=== PATIENT | male | born 1935 | race Caucasian/White ===

== ENCOUNTER 2018-08-28 13:12 | Inpatient (IN) ==
--- NOTE | 2018-08-28 14:29 | XR ---
EXAM DATE: 08/28/2018 2:24 PM EDT AGE/SEX: 83 years / Male INDICATIONS: . Mid back pain, cough and shortness of breath. CLINICAL DATA: This is the patient's initial encounter. Patient reports that signs and symptoms have been present for 1 month and indicates a pain score of 4/10. MEDICAL/SURGICAL HISTORY: Hypertension. Chronic obstructive pulmonary disease. Congestive hea rt failure. AFIB. Pacemaker. CABG. COMPARISON: [facility], CHEST 1V SINGLE AP, 07/24/2018. . FINDINGS: Cardiomegaly, sternotomy wires and mediastinal clips are noted. Pacer device again seen. Lungs are cl ear. Degenerative changes of the spine. CONCLUSION: Clear lungs. Electronically signed by: Feliciano Faith MD 08/28/2018 2:28 PM EDT
[2018-08-28 14:48] LABS: Baso # (Auto) 0.1 th/mm3 (0.0-0.2); Baso % (Auto) 0.8 % (0.0-2.0); Eos # (Auto) 0.1 th/mm3 (0.0-0.4); Eos % (Auto) 0.7 % (0.0-4.0); Hematocrit 46.3 % (39.0-51.0); Hemoglobin 15.2 gm/dL (13.0-17.0); Lymph # (Auto) 1.7 th/mm3 (1.0-4.8); Lymph % (Auto) 15.7 % (9.0-44.0); Mean Corpuscular HGB Conc 32.7 % (32.0-36.0); Mean Corpuscular Hemoglobin 30.2 pg (27.0-34.0); Mean Corpuscular Volume 92.4 fL (80.0-100.0); Mean Platelet Volume 9.1 fL (7.0-11.0); Mono # (Auto) 1.1 th/mm3 (0.0-0.9); Mono % (Auto) 9.7 % (0.0-8.0); Neut # (Auto) 8.1 th/mm3 (1.8-7.7); Neut % (Auto) 73.1 % (16.0-70.0); Platelet Count 353 th/mm3 (150-450); Red Blood Count 5.02 mil/mm3 (4.50-5.90); Red Cell Distribution Width 14.2 % (11.6-17.2); White Blood Count 11.1 th/mm3 (4.0-11.0)
[2018-08-28 14:52] LABS: INR 1.5 Ratio; Prothrombin Time 15.6 sec (9.8-11.6)
--- NOTE | 2018-08-28 15:12 | ED ---
HPI General Chief Complaint: Chest Pain Stated Complaint: SoB Time Seen by Provider: 08/28/18 14:32 Source: patient Mode of arrival: ambulatory History of Present Illness HPI narrative: Patient complaining of increased shortness of breath upon exertion over the past month. Patient had a defibrillator placed 1 month ago. Patient takes as Xarelto blood thinner and furosemide for heart failure. Patient states that he cannot exert himself at all without becoming extremely short of breath and gasping for air MD complaint: Reports other (SOB) STEMI Alert: No Onset (ago): week(s) (4) Duration: progressively worsening Onset: during exertion Severity: severe Quality: Reports tightness Relieving factors: nothing Associated symptoms: Reports dyspnea and palpitations; Denies nausea, vomiting, diaphoresis and syncope Treatments prior to arrival chest pain: Reports none Related Data Home Medications Medication Instructions Recorded Confirmed fenofibrate 160 mg PO DAILY 07/22/18 08/28/18 latanoprost 1 drp OPHTHALMIC (EYE) QPM 07/22/18 08/28/18 levothyroxine [Synthroid] 75 mcg PO DAILY 07/22/18 08/28/18 pitavastatin calcium [Livalo] 2 mg PO 3XW 07/22/18 08/28/18 metoprolol tartrate 25 mg PO BID 08/28/18 08/28/18 rivaroxaban [Xarelto] 15 mg PO QPM 08/28/18 08/28/18 torsemide 20 mg PO EVERY OTHER DAY 08/28/18 08/28/18 Allergies Allergy/AdvReac Type Severity Reaction Status Date / Time prednisone Allergy Severe Weight loss Verified 08/28/18 14:33 penicillin G Allergy Intermediate Hives Verified 08/28/18 14:33 Sulfa (Sulfonamide Allergy Intermediate Hives Verified 08/28/18 14:33 Antibiotics) Review of Systems ROS: all other systems reviewed are negative [facility] Medical History Medical History Afib (Acute) COPD (chronic obstructive pulmonary disease) (Acute) Diabetes (Acute) Glaucoma (Acute) HLD (hyperlipidemia) (Acute) HTN (hypertension) (Acute) Hypothyroid (Acute) ICD (implantable cardioverter-defibrillator) in place (Acute) Mitral regurgitation (Acute) Skin cancer (Acute) Ventricular tachycardia (Acute) Surgical History Surgical History H/O sinus surgery (Acute) Hx of CABG (Acute) Social History Social History Substance History: No History of Abuse Second Hand Smoke Exposure: No Smoking Status: Former smoker How Often Do You Have a Drink Containing Alcohol: Never Hx Recent Travel: No Recent Travel in [facility] within the Last 8 Weeks: No Recent Out of Country Travel within the Last 8 Weeks: No Immunization History Tetanus Immunization: Unsure Exam Const General: cooperative, healthy appearing, comfortable and not anxious HENMT Head: normocephalic and atraumatic Nose: no nasal discharge and no epistaxis Mouth: moist mucous membranes Eyes Sclera: normal sclerae Pupils: PERRL Neck Neck: trachea midline and no JVD Resp Effort & Inspection: able to speak in complete sentences, no audible wheezes, no cough, respiratory effort not decreased, tachypneic and no use of accessory muscles Auscultation: clear to auscultation bilaterally and no wheezes Cardio Jugular venous pressure: no JVD Rate: tachycardic (Atrial ribrilation with RVR rate at 120) Rhythm: abnormal rhythm Heart Sounds: no murmurs GI Inspection: non-distended Palpation: soft, no hepatosplenomegaly and nontender Skin General: dry skin (warm) Neuro General: alert and awake Cranial Nerves: other Speech: speech normal Motor: no movement abnormalities noted Extrem General: normal to inspection, no clubbing, no cyanosis and no edema Psych Appearance: grossly normal Mood: congruent mood Affect: normal affect Attitude: cooperative Judgment: judgment good Course Initial Documented Vital Signs Temperature 98.5 F 08/28/18 13:15 Pulse Rate 74 08/28/18 13:15 Respiratory Rate 16 08/28/18 13:15 Blood Pressure 129/77 08/28/18 13:15 Pulse Oximetry 95 08/28/18 13:15 Last Documented Vital Signs Temperature 98.5 F 08/28/18 13:15 Pulse Rate 112 H 08/28/18 13:31 Respiratory Rate 26 H 08/28/18 13:31 Blood Pressure 129/77 08/28/18 13:15 Pulse Oximetry 96 08/28/18 13:31 Medical Decision Making TEODORO Attestation TEODORO supervised visit: Yes Attestation: I, Dr. Everett, have reviewed the advance practice practitioner's documentation and am in agreement, met with the patient face to face, made the diagnosis, and the medical decision making was done by me. *My assessment and Findings: A. fib with RVR. Acute on chronic kidney injury. Admit with Cardizem drip. Gentle IV hydration. MDM Narrative Medical decision making narrative: Patient is short of breath for the last month but worsening symptoms for the past 2 days. Had a defibrillator placed [address] Contreras. Will order labs chest x-ray and EKG starting fluids along with starting Cardizem drip for AFIB rvr with rate of 120 Labs show acute on chronic renal failure with creatinine of 2.4 BUN of 47 and a GFR that is 25 CXR is normal After starting the drip patient's rate has gone down to 90s Patient is comfortable in bed and is okay with the plan to admit patient for evaluation of renal failure and A. fib RVR Medical Screen Exam Complete: Yes Emergency Medical Condition: Yes Lab Data Lab results reviewed: Yes I reviewed the patient's lab results. Result diagrams: 08/28/18 14:00 08/28/18 14:00 Lab Results 08/28/18 08/28/18 08/28/18 Range/Units 14:00 14:00 14:00 WBC 11.1 H (4.0-11.0) th/mm3 RBC 5.02 (4.50-5.90) mil/mm3 Hgb 15.2 (13.0-17.0) gm/dL Hct 46.3 (39.0-51.0) % MCV 92.4 (80.0-100.0) fL MCH 30.2 (27.0-34.0) pg MCHC 32.7 (32.0-36.0) % RDW 14.2 (11.6-17.2) % Plt Count 353 (150-450) th/mm3 MPV 9.1 (7.0-11.0) fL Neut % (Auto) 73.1 H (16.0-70.0) % Lymph % (Auto) 15.7 (9.0-44.0) % [place] % (Auto) 9.7 H (0.0-8.0) % Eos % (Auto) 0.7 (0.0-4.0) % Baso % (Auto) 0.8 (0.0-2.0) % Neut # (Auto) 8.1 H (1.8-7.7) th/mm3 Lymph # (Auto) 1.7 (1.0-4.8) th/mm3 [place] # (Auto) 1.1 H (0.0-0.9) th/mm3 Eos # (Auto) 0.1 (0.0-0.4) th/mm3 Baso # (Auto) 0.1 (0.0-0.2) th/mm3 WBC Differential . Differential Comment Auto diff final PT 15.6 H (9.8-11.6) sec INR 1.5 Ratio Sodium 137 (136-145) meq/L Potassium 4.4 (3.5-5.1) meq/L Chloride 100 (98-107) meq/L Carbon Dioxide 21.5 (21.0-32.0) meq/L Anion Gap 16 H (5-15) meq/L BUN 47 H (7-18) mg/dL Creatinine 2.45 H (0.60-1.30) mg/dL Estimated GFR 25 L (>89) mL/min Random Glucose 156 H (74-106) mg/dL Calcium 9.9 (8.5-10.1) mg/dL Total Creatine Kinase 75 (39-308) U/L Troponin I Less than 0.02 L (0.02-0.05) ng/mL B-Natriuretic Peptide (0-100) pg/mL 08/28/18 Range/Units 15:15 WBC (4.0-11.0) th/mm3 RBC (4.50-5.90) mil/mm3 Hgb (13.0-17.0) gm/dL Hct (39.0-51.0) % MCV (80.0-100.0) fL MCH (27.0-34.0) pg MCHC (32.0-36.0) % RDW (11.6-17.2) % Plt Count (150-450) th/mm3 MPV (7.0-11.0) fL Neut % (Auto) (16.0-70.0) % Lymph % (Auto) (9.0-44.0) % [place] % (Auto) (0.0-8.0) % Eos % (Auto) (0.0-4.0) % Baso % (Auto) (0.0-2.0) % Neut # (Auto) (1.8-7.7) th/mm3 Lymph # (Auto) (1.0-4.8) th/mm3 [place] # (Auto) (0.0-0.9) th/mm3 Eos # (Auto) (0.0-0.4) th/mm3 Baso # (Auto) (0.0-0.2) th/mm3 WBC Differential Differential Comment PT (9.8-11.6) sec INR Ratio Sodium (136-145) meq/L Potassium (3.5-5.1) meq/L Chloride (98-107) meq/L Carbon Dioxide (21.0-32.0) meq/L Anion Gap (5-15) meq/L BUN (7-18) mg/dL Creatinine (0.60-1.30) mg/dL Estimated GFR (>89) mL/min Random Glucose (74-106) mg/dL Calcium (8.5-10.1) mg/dL Total Creatine Kinase (39-308) U/L Troponin I (0.02-0.05) ng/mL B-Natriuretic Peptide 2912 H (0-100) pg/mL Imaging Data Attestation: I personally reviewed and interpreted this imaging study as follows : Radiologist's impression: Chest X-Ray 08/28/18 13:35 CONCLUSION: Clear lungs. ECG Data EKG Prior to Arrival: No Attestation: I personally reviewed and interpreted this ECG as follows: Discharge Plan Discharge Disposition Patient Disposition: 30 Still Patient Discharge Condition Condition: Stable Discharge Details Diagnosis: Atrial fibrillation with rapid ventricular response, Renal failure, acute on chronic, Shortness of breath on exertion Physicians Team ED Provider: Chato Everett ED Midlevel Provider: Chel Koch Primary Care Provider: Davy Walters Attending Provider: Carlota Lemon Status ED Status: Admitted Patient
[2018-08-28 15:34] LABS: Creatine Kinase 75 U/L (39-308)
[2018-08-28 15:37] LABS: Anion Gap 16 meq/L (5-15); Blood Urea Nitrogen 47 mg/dL (7-18); Calcium 9.9 mg/dL (8.5-10.1); Carbon Dioxide 21.5 meq/L (21.0-32.0); Chloride 100 meq/L (98-107); Glomerular Filtration Rate 25 mL/min (>89); Glucose,Random 156 mg/dL (74-106); Potassium 4.4 meq/L (3.5-5.1); Sodium 137 meq/L (136-145)
[2018-08-28] MEDS: dilTIAZem Inj 125 MG in Sodium Chlor 0.9% Inj 100 ML IV.CONT PRN (15:44)
[2018-08-28] MEDS ORDERED: Sodium Chlor 0.9% Inj 500 ML IV.SIG SCH (17:00)
--- NOTE | 2018-08-28 18:16 | P.HPFP ---
History of Present Illness Primary Care Physician: Davy Walters MD History of Present Illness: 83-year-old male with a history of A. fib on Xarelto, hypertension, hyperlipidemia, ICD presents to the ED with worsening shortness of breath. Patient is here with his . PCP is Dr. Walters. Patient reports that he has had worsening intermittent shortness of breath for a few weeks. reports that patient was hunched over on the couch trying to breathe. Shortness of breath is worse on exertion. Patient states that when he was going to the bathroom he could not catch his breath. He states that he was getting go see Dr. Walters next week. He denies orthopnea, leg swelling, and chest pain. He states that his shortness of breath was relieved with oxygen. Patient had a defibrillator replaced about a month ago by Dr. Contreras. Patient reports decreased appetite since defibrillator was replaced. reports that he has lost 20 pounds in the past month. Endorses generalized weakness and fatigue. Denies fevers, night sweats, nausea vomiting, diarrhea, abdominal pain , dysuria, melena. 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 This includes certification that hospital inpatient services are reasonable and necessary and in the case of services not specified as inpatient-only under 42 CFR 419.22(n), that they are appropriately provided as inpatient services in accordance to with the 2-midnight benchmark under 43 CFR 412.3(e) Estimated Total Length of Stay (Days): 2 Plans for Post Hospital Care: Other Review of Systems Constitutional: Reports weakness, Reports weight loss, Denies fever(s), Denies headache(s) Eyes: Denies change in vision Ears, Nose, Mouth, and Throat: Denies difficulty swallowing Cardiovascular: Reports shortness of breath, Denies chest pain Respiratory: Reports shortness of breath with activity, Denies cough Gastrointestinal: Denies abdominal pain Genitourinary: Denies difficulty urinating Musculoskeletal: Reports muscle weakness, Denies body aches, Denies muscle cramps Skin/Breast: Denies rash Neurologic: Denies tingling/numbness/burning sensations PMFSH - History History Provided By: Patient - Medical History Medical History: Medical History (Last Reviewed 08/28/18 @ 15:10 by Chel Koch) Afib COPD (chronic obstructive pulmonary disease) Diabetes Glaucoma HLD (hyperlipidemia) HTN (hypertension) Hypothyroid ICD (implantable cardioverter-defibrillator) in place Mitral regurgitation Skin cancer Ventricular tachycardia - Surgical History Surgical History: Surgical History (Last Reviewed 08/28/18 @ 15:10 by Chel Koch) H/O sinus surgery Hx of CABG - Family History Family History: Family History (Last Updated 08/28/18 @ 22:09 by Ashanti Bloom MD, R2) Father Colon cancer - Social History I have reviewed the patient's Social History: Yes - Tobacco History Second Hand Smoke Exposure: No Smoking Status: Former smoker - Alcohol History How Often Do You Have a Drink Containing Alcohol: Never - Substance Use History Substance History: No History of Abuse - Travel History History of Recent Travel: No Recent Travel in the [place] Within the Last 8 Weeks: No Recent Travel Out of the Country Within the Last 8 Weeks: No - Immunization History Tetanus Immunization: Unsure Medications and Allergies Active Medications: Active Medications Diltiazem HCl 125 mg/ Sodium (Chloride) 125 mls @ 5 mls/hr IV.CONT TITRATE PRN ; Protocol PRN Reason: Per Protocol Last Titration: 08/28/18 16:12 Dose: 10 mg/hr, 10 mls/hr Sodium Chloride (Ns Inj) 500 mls @ 0 mls/hr IV.SIG BOLUS ANNITA Sodium Chloride (Ns Inj) 1,000 mls @ 84 mls/hr IV.CONT .[id number] [facility] Allergies Allergy/AdvReac Type Severity Reaction Status Date / Time prednisone Allergy Severe Weight loss Verified 08/28/18 14:33 penicillin G Allergy Intermediate Hives Verified 08/28/18 14:33 Sulfa (Sulfonamide Allergy Intermediate Hives Verified 08/28/18 14:33 Antibiotics) Home Medications Medication Instructions Recorded Confirmed Type fenofibrate 160 mg PO DAILY 07/22/18 08/28/18 History latanoprost 1 drp OPHTHALMIC (EYE) QPM 07/22/18 08/28/18 History levothyroxine [Synthroid] 75 mcg PO DAILY 07/22/18 08/28/18 History pitavastatin calcium [Livalo] 2 mg PO 3XW 07/22/18 08/28/18 History metoprolol tartrate 25 mg PO BID 08/28/18 08/28/18 History rivaroxaban [Xarelto] 15 mg PO QPM 08/28/18 08/28/18 History torsemide 20 mg PO EVERY OTHER DAY 08/28/18 08/28/18 History Exam Vital signs: Vital Signs 08/28/18 13:15 08/28/18 13:31 Temperature 98.5 F Pulse Rate 74 112 H Respiratory Rate 16 26 H Blood Pressure 129/77 Pulse Oximetry 95 96 Intake & Output 08/27/18 08/28/18 08/28/18 18:59 06:59 18:59 Weight 63.503 kg Narrative: General: Elderly male in no acute distress Cardio: Irregular rate and rhythm Pulmonary: Clear to auscultation bilaterally, no wheezes or crackles Abdomen soft, nontender nondistended, positive bowel sounds, no guarding, no rebound Extremities: No cyanosis or edema Neuro: Alert and oriented x3 Results - Labs Result diagrams: 08/28/18 14:00 08/28/18 14:00 Abnormal lab results 08/28/18 08/28/18 08/28/18 Range/Units 14:00 14:00 14:00 WBC 11.1 H (4.0-11.0) th/mm3 Neut % (Auto) 73.1 H (16.0-70.0) % [place] % (Auto) 9.7 H (0.0-8.0) % Neut # (Auto) 8.1 H (1.8-7.7) th/mm3 [place] # (Auto) 1.1 H (0.0-0.9) th/mm3 PT 15.6 H (9.8-11.6) sec Anion Gap 16 H (5-15) meq/L BUN 47 H (7-18) mg/dL Creatinine 2.45 H (0.60-1.30) mg/dL Estimated GFR 25 L (>89) mL/min Random Glucose 156 H (74-106) mg/dL Troponin I Less than 0.02 L (0.02-0.05) ng/mL B-Natriuretic Peptide (0-100) pg/mL 08/28/18 Range/Units 15:15 WBC (4.0-11.0) th/mm3 Neut % (Auto) (16.0-70.0) % [place] % (Auto) (0.0-8.0) % Neut # (Auto) (1.8-7.7) th/mm3 [place] # (Auto) (0.0-0.9) th/mm3 PT (9.8-11.6) sec Anion Gap (5-15) meq/L BUN (7-18) mg/dL Creatinine (0.60-1.30) mg/dL Estimated GFR (>89) mL/min Random Glucose (74-106) mg/dL Troponin I (0.02-0.05) ng/mL B-Natriuretic Peptide 2912 H (0-100) pg/mL Short CBC 08/28/18 Range/Units 14:00 WBC 11.1 H (4.0-11.0) th/mm3 Hgb 15.2 (13.0-17.0) gm/dL Hct 46.3 (39.0-51.0) % Plt Count 353 (150-450) th/mm3 BMP 08/28/18 14:00 Sodium 137 Potassium 4.4 Chloride 100 Carbon Dioxide 21.5 BUN 47 H Creatinine 2.45 H Calcium 9.9 Cardiac Enzymes 08/28/18 Range/Units 14:00 Total Creatine Kinase 75 (39-308) U/L Troponin I Less than 0.02 L (0.02-0.05) ng/mL - Imaging Impressions Chest X-Ray 08/28/18 13:35 CONCLUSION: Clear lungs. Caprini VTE Risk Assessment Caprini VTE Risk Assessment: Moderate/High Risk (score >= 2) Caprini Risk Assessment Model: Point Value = 1 Point Value = 2 Point Value = 3 Point Value = 5 Age 41-60 Minor surgery BMI > 25 kg/m2 Swollen legs Varicose veins or History of unexplained or recurrent spontaneous Oral contraceptives or hormone replacement Sepsis (< 1 month) Serious lung disease, including pneumonia (< 1 month) Abnormal pulmonary function Acute myocardial infarction Congestive heart failure (< 1 month) History of inflammatory bowel disease Medical patient at bed rest Age 61-74 Arthroscopic surgery Major open surgery (> 45 min) Laparoscopic surgery (> 45 min) Malignancy Confined to bed (> 72 hours) Immobilizing plaster cast Central venous access Age >= 75 History of VTE Family history of VTE Factor V Leiden Prothrombin [id number] Lupus anticoagulant Anticardiolipin antibodies Elevated serum homocysteine Heparin-induced thrombocytopenia Other congenital or acquired thrombophilia Stroke (< 1 month) Elective arthroplasty Hip, pelvis, or leg fracture Acute spinal cord injury (< 1 month) Prophylaxis Regimen: Total Risk Factor Score Risk Level Prophylaxis Regimen 0-1 Low Early ambulation 2 Moderate Order ONE of the following: *Sequential Compression Device (SCD) *Heparin 5000 units SQ BID 3-4 Higher Order ONE of the following medications: *Heparin 5000 units SQ TID *Enoxaparin/Lovenox 40 mg SQ daily (WT < 150 kg, CrCl > 30 mL/min) *Enoxaparin/Lovenox 30 mg SQ daily (WT < 150 kg, CrCl > 10-29 mL/min) *Enoxaparin/Lovenox 30 mg SQ BID (WT < 150 kg, CrCl > 30 mL/min) AND/OR *Sequential Compression Device (SCD) 5 or more Highest Order ONE of the following medications: *Heparin 5000 units SQ TID (Preferred with Epidurals) *Enoxaparin/Lovenox 40 mg SQ daily (WT < 150 kg, CrCl > 30 mL/min) *Enoxaparin/Lovenox 30 mg SQ daily (WT < 150 kg, CrCl > 10-29 mL/min) *Enoxaparin/Lovenox 30 mg SQ BID (WT < 150 kg, CrCl > 30 mL/min) AND *Sequential Compression Device (SCD) Assessment and Plan - Assessment (1) Atrial fibrillation with rapid ventricular response Code(s): I48.91 - Unspecified atrial fibrillation Status: Acute Plan: 83-year-old male with a history of A. fib on Xarelto, hypertension, hyperlipidemia, ICD presents to the ED with worsening shortness of breath. Per [facility]-cardiology consult note on 08/14, patient to start amiodarone 200 mg daily. Patient to have EMILEE/cardioversion in a few weeks Continue Cardizem drip, titrate as needed Continue Xarelto 50 mg p.o. Cardiac telemetry Cardiology consulted, appreciate recommendations (2) Cardiomyopathy Code(s): I42.9 - Cardiomyopathy, unspecified Status: Chronic Plan: -Echo 10/2017, EF=17%, LAE, LVH, PILY, Mod MR, Mod AI, Mod TR, aortic cusp thickening BNP elevated at 2912, patient does not appear to be fluid overloaded on exam, no lower extremity swelling or crackles CXR negative Continue to monitor BNP (3) V-tach Code(s): I47.2 - Ventricular tachycardia Status: Chronic Plan: s/p ICD changed on 07/21/18 (4) Renal failure, acute on chronic Code(s): N17.9 - Acute kidney failure, unspecified; N18.9 - Chronic kidney disease, unspecified Status: Acute Plan: Patient with BUN of 47 and creatinine of 2.45 on admission Baseline around 1.1 Normal saline 84mls/hr, lower than maintenance to hx of CHF (5) Hyperlipidemia Code(s): E78.5 - Hyperlipidemia, unspecified Status: Acute Plan: Continue fenofibrate 140 mg p.o. daily (6) Hypothyroidism Code(s): E03.9 - Hypothyroidism, unspecified Status: Chronic Plan: Continue levothyroxine 75mcg daily (7) Nutrition, metabolism, and development symptoms Code(s): R63.8 - Other symptoms and signs concerning food and fluid intake Status: Acute Plan: Fluids: NS 84mls/hr Diet: Cardiac diet vitals q4h, monitor I & Os DVT ppx: Xarelto (4) Renal failure, acute on chronic Qualifiers: Acute renal failure type: unspecified Chronic kidney disease stage: unspecified stage Qualified Code(s): N17.9 - Acute kidney failure, unspecified ; N18.9 - Chronic kidney disease, unspecified
[2018-08-28] MEDS: Sod Chloride 0.9% Inj 1,000 ML IV.CONT SCH (18:29)
[2018-08-28] MEDS ORDERED: Sod Chloride 0.9% Inj 1,000 ML IV.CONT SCH (22:30)
[2018-08-29] MEDS: dilTIAZem Inj 125 MG in Sodium Chlor 0.9% Inj 100 ML IV.CONT PRN (02:01)
[2018-08-29] MEDS: Sod Chloride 0.9% Inj 1,000 ML IV.CONT SCH ×2 (05:23→20:13)
[2018-08-29] MEDS: Levothyroxine 75 MCG Tablet PO SCH (05:24)
[2018-08-29 07:29] LABS: Baso # (Auto) 0.1 th/mm3 (0.0-0.2); Baso % (Auto) 1.1 % (0.0-2.0); Eos # (Auto) 0.2 th/mm3 (0.0-0.4); Eos % (Auto) 1.9 % (0.0-4.0); Hematocrit 41.6 % (39.0-51.0); Hemoglobin 14.1 gm/dL (13.0-17.0); Lymph # (Auto) 1.5 th/mm3 (1.0-4.8); Lymph % (Auto) 16.5 % (9.0-44.0); Mean Corpuscular HGB Conc 33.8 % (32.0-36.0); Mean Corpuscular Hemoglobin 30.8 pg (27.0-34.0); Mean Corpuscular Volume 91.2 fL (80.0-100.0); Mean Platelet Volume 8.8 fL (7.0-11.0); Mono # (Auto) 0.6 th/mm3 (0.0-0.9); Mono % (Auto) 6.9 % (0.0-8.0); Neut # (Auto) 6.6 th/mm3 (1.8-7.7); Neut % (Auto) 73.6 % (16.0-70.0); Platelet Count 294 th/mm3 (150-450); Red Blood Count 4.57 mil/mm3 (4.50-5.90)
[2018-08-29 08:03] LABS: Alanine Aminotransferase 460 U/L (12-78); Albumin 3.1 g/dL (3.4-5.0); Alkaline Phosphatase 53 U/L (45-117); Anion Gap 12 meq/L (5-15); Aspartate Aminotransferase 658 U/L (15-37); Blood Urea Nitrogen 42 mg/dL (7-18); Calcium 8.7 mg/dL (8.5-10.1); Carbon Dioxide 23.9 meq/L (21.0-32.0); Chloride 104 meq/L (98-107); Glomerular Filtration Rate 42 mL/min (>89); Glucose,Random 78 mg/dL (74-106); Potassium 4.1 meq/L (3.5-5.1); Sodium 140 meq/L (136-145); Total Protein 7.3 g/dL (6.4-8.2)
[2018-08-29] MEDS ORDERED: Fenofibrate 145 MG Tablet PO SCH (09:00)
[2018-08-29] MEDS: Metoprolol Tartrate 25 MG Tablet PO SCH ×2 (10:21→20:11)
--- NOTE | 2018-08-29 11:21 | P.CONCA ---
History of Present Illness Service: Cardiology covering for Dr Contreras Consult date: 08/29/18 Primary Care Provider: Davy Walters MD Chief Complaint: atrial fib with RVR History of Present Illness: This is a pleasant 83 year old male who developed increased shortness of breath over past month who presented to ER 08/28 due to worsening shortening of breath. He states that he was hospitalized last month with ICD generator change and atrial fibrillation. Denied chest pain, palpitations, dizziness, edema. He was started on Cardizem drip which is currently going at 10 and heart rate is 84. Review of Systems Constitutional: Reports fatigue Ears, Nose, Mouth, and Throat: Reports abnormal hearing Cardiovascular: Reports rapid, pounding, or irregular heartbeat, Reports shortness of breath, Denies chest pain, Denies fainting, Denies foot swelling, Denies lightheadedness Respiratory: Reports shortness of breath with activity Gastrointestinal: Denies nausea Skin/Breast: Reports change in skin color, Reports dry skin PMFSH - History History Provided By: Patient - Medical History Medical History: Medical History (Last Reviewed 08/28/18 @ 15:10 by Chel Koch) Afib COPD (chronic obstructive pulmonary disease) Diabetes Glaucoma HLD (hyperlipidemia) HTN (hypertension) Hypothyroid ICD (implantable cardioverter-defibrillator) in place Mitral regurgitation Skin cancer Ventricular tachycardia - Surgical History Surgical History: Surgical History (Last Reviewed 08/28/18 @ 15:10 by Chel Koch) H/O sinus surgery Hx of CABG - Family History Family History: Family History (Last Updated 08/28/18 @ 22:09 by Ashanti Bloom MD, R2) Father Colon cancer - Tobacco History Second Hand Smoke Exposure: No Smoking Status: Former smoker - Alcohol History How Often Do You Have a Drink Containing Alcohol: Never - Substance Use History Substance History: No History of Abuse - Travel History History of Recent Travel: No Recent Travel in the [place] Within the Last 8 Weeks: No Recent Travel Out of the Country Within the Last 8 Weeks: No - Immunization History Tetanus Immunization: Unsure Hx Influenza Vaccine This Season: No Medications and Allergies Allergies Allergy/AdvReac Type Severity Reaction Status Date / Time prednisone Allergy Severe Weight loss Verified 08/28/18 14:33 penicillin G Allergy Intermediate Hives Verified 08/28/18 14:33 Sulfa (Sulfonamide Allergy Intermediate Hives Verified 08/28/18 14:33 Antibiotics) Home Medications Medication Instructions Recorded Confirmed Type fenofibrate 160 mg PO DAILY 07/22/18 08/28/18 History latanoprost 1 drp OPHTHALMIC (EYE) QPM 07/22/18 08/28/18 History levothyroxine [Synthroid] 75 mcg PO DAILY 07/22/18 08/28/18 History pitavastatin calcium [Livalo] 2 mg PO 3XW 07/22/18 08/28/18 History metoprolol tartrate 25 mg PO BID 08/28/18 08/28/18 History rivaroxaban [Xarelto] 15 mg PO QPM 08/28/18 08/28/18 History torsemide 20 mg PO EVERY OTHER DAY 08/28/18 08/28/18 History Active Medications: Active Medications Diltiazem HCl 125 mg/ Sodium (Chloride) 125 mls @ 5 mls/hr IV.CONT TITRATE PRN ; Protocol PRN Reason: Per Protocol Last Admin: 08/29/18 02:01 Dose: 10 mg/hr, 10 mls/hr Sodium Chloride (Ns Inj) 500 mls @ 0 mls/hr IV.SIG BOLUS [facility] Last Infusion: 08/28/18 19:27 Dose: Infused Sodium Chloride (Ns Inj) 1,000 mls @ 84 mls/hr IV.CONT .[id number] [facility] Last Admin: 08/29/18 05:23 Dose: 84 mls/hr Latanoprost (Xalatan 0.005% Opth Drops) 1 drop EACH EYE QPM [facility] Levothyroxine Sodium (Synthroid) 75 mcg PO DAILY@0600 [facility] Last Admin: 08/29/18 05:24 Dose: 75 mcg Metoprolol Tartrate (Lopressor) 25 mg PO BID [facility] Last Admin: 08/29/18 10:21 Dose: 25 mg Rivaroxaban (Xarelto) 15 mg PO QPM [facility] Sodium Chloride (Ns Flush) 2 ml IV.FLUSH BID [facility] Last Admin: 08/29/18 10:21 Dose: 2 ml Sodium Chloride (Ns Flush) 2 ml IV.FLUSH PRN PRN PRN Reason: FLUSH AFTER USING IV ACCESS Torsemide (Demadex) 20 mg PO EVERY OTHER DAY [facility] Exam Vital signs: Vital Signs 08/28/18 13:15 08/28/18 13:31 08/28/18 17:30 Temperature 98.5 F Pulse Rate 74 112 H 101 H Respiratory Rate 16 26 H 18 Blood Pressure 129/77 94/67 L Pulse Oximetry 95 96 08/28/18 17:31 08/28/18 18:43 08/28/18 20:00 Temperature 98.4 F Pulse Rate 84 94 H Respiratory Rate 18 20 Blood Pressure 93/64 L 113/68 Pulse Oximetry 96 96 97 08/28/18 22:00 08/28/18 23:00 08/29/18 00:00 Temperature 97.4 F L Pulse Rate 86 86 85 Respiratory Rate 18 Blood Pressure 109/68 Pulse Oximetry 100 08/29/18 01:00 08/29/18 02:00 08/29/18 03:00 Temperature Pulse Rate 82 80 94 H Respiratory Rate Blood Pressure Pulse Oximetry 08/29/18 04:00 08/29/18 05:00 08/29/18 06:00 Temperature 97.6 F Pulse Rate 74 70 92 H Respiratory Rate 18 Blood Pressure 112/69 Pulse Oximetry 95 Intake & Output 08/28/18 08/29/18 08/29/18 18:59 06:59 18:59 Intake Total 1925 / 1925 Output Total 200 / 200 Balance 1725 / 1725 Weight 63.503 kg 67 kg Intake: IV 1625 / 1625 NS Inj 1,000 ML @ 84 mls/hr IV. 1000 / 1000 CONT .[id number] [facility] Rx#:[id number] Cardizem Inj 125 MG In NS Inj 125 / 125 100 ML @ 5 MG/HR 5 mls/hr IV. CONT TITRATE PRN Rx#:[id number] NS Inj 500 ML @ Wide Open IV. 500 / 500 SIG BOLUS [facility] Rx#:[id number] Oral 300 / 300 Output: Urine 200 / 200 Other: # Voids 1 Date of Last Bowel Movement 08/27/18 # Bowel Movements 0 Weight On Admission 66.5 kg - Constitutional no acute distress - Routine HEENT Exam Head: Present: normocephalic, atraumatic Eye: Present: EOMI ENT: Present: mucous membranes moist - Routine Neck Exam Present: supple. Absent: JVD - Routine Respiratory Exam Present: CTA bilaterally - Routine Cardiovascular Exam Present: irregular rhythm - Routine Abdominal Exam Present: soft, normoactive bowel sounds - Routine Extremities Exam Present: pulses intact. Absent: cyanosis, edema - Routine Skin Exam Present: intact, dry. Absent: cyanosis - Routine Neurological Exam Present: alert, oriented X3, CN II-XII intact Results 08/29/18 06:50 08/29/18 06:50 Cardiac Enzymes 08/28/18 08/28/18 08/29/18 Range/Units 14:00 15:15 06:50 AST 658 H (15-37) U/L Troponin I Less than 0.02 L (0.02-0.05) ng/mL B-Natriuretic Peptide 2912 H (0-100) pg/mL 08/29/18 Range/Units 06:50 AST (15-37) U/L Troponin I (0.02-0.05) ng/mL B-Natriuretic Peptide 2859 H (0-100) pg/mL Coagulation 08/28/18 08/28/18 08/29/18 Range/Units 14:00 15:15 06:50 PT 15.6 H (9.8-11.6) sec B-Natriuretic Peptide 2912 H 2859 H (0-100) pg/mL CBC 08/28/18 08/29/18 Range/Units 14:00 06:50 WBC 11.1 H 9.0 (4.0-11.0) th/mm3 RBC 5.02 4.57 (4.50-5.90) mil/mm3 Hgb 15.2 14.1 (13.0-17.0) gm/dL Hct 46.3 41.6 (39.0-51.0) % Plt Count 353 294 (150-450) th/mm3 Neut # (Auto) 8.1 H 6.6 (1.8-7.7) th/mm3 Lymph # (Auto) 1.7 1.5 (1.0-4.8) th/mm3 [place] # (Auto) 1.1 H 0.6 (0.0-0.9) th/mm3 Eos # (Auto) 0.1 0.2 (0.0-0.4) th/mm3 Baso # (Auto) 0.1 0.1 (0.0-0.2) th/mm3 Comprehensive Metabolic Panel 08/28/18 08/29/18 Range/Units 14:00 06:50 Sodium 137 140 (136-145) meq/L Potassium 4.4 4.1 (3.5-5.1) meq/L Chloride 100 104 (98-107) meq/L Carbon Dioxide 21.5 23.9 (21.0-32.0) meq/L BUN 47 H 42 H (7-18) mg/dL Creatinine 2.45 H 1.59 H (0.60-1.30) mg/dL Calcium 9.9 8.7 D (8.5-10.1) mg/dL AST 658 H (15-37) U/L ALT 460 H (12-78) U/L Alkaline Phosphatase 53 (45-117) U/L Total Protein 7.3 (6.4-8.2) g/dL Albumin 3.1 L (3.4-5.0) g/dL Intake and Output 08/28/18 08/29/18 08/29/18 22:59 06:59 14:59 Intake Total 500 / 500 1425 / 1425 Output Total 200 / 200 Balance 500 / 500 1225 / 1225 Intake: IV 500 / 500 1125 / 1125 NS Inj 1,000 ML @ 84 mls/hr IV. 1000 / 1000 CONT .[id number] [facility] Rx#:[id number] Cardizem Inj 125 MG In NS Inj 125 / 125 100 ML @ 5 MG/HR 5 mls/hr IV. CONT TITRATE PRN Rx#:[id number] NS Inj 500 ML @ Wide Open IV. 500 / 500 SIG [facility] Rx#:[id number] Oral 300 / 300 Output: Urine 200 / 200 Other: # Voids 1 Date of Last Bowel Movement 08/27/18 # Bowel Movements 0 Weight 66.5 kg 67 kg Weight On Admission 66.5 kg - Imaging and Cardiology Imaging: Impressions Chest X-Ray 08/28/18 13:35 CONCLUSION: Clear lungs. - EKG Interpretation EKG shows: atrial fibrillation Assessment and Plan - Plan 1. Atrial Fibrillation-He is currently on Cardizem gtt at 5 milligrams per hour heart rate is 84 at rest (a fib) . Continue metoprolol and Xarelto. He was supposed to be on amiodarone according to prior records to plan for a EMILEE and cardioversion. We will start p.o. amiodarone and try to wean him off the IV Cardizem. Check electrolytes/TSH and free T4 levels [on levothyroxine]. 2. 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 Denies chest pain. Continue beta blockers 3. CMP-SP ICD with recent gen change EF Documented at 17%. Shortness of breath-most likely secondary to a fib, also with renal insufficiency. CXR negative. Diuresed intermittently and watch kidney function/electrolytes. Continue p.o. torsemide. 4. Hyperlipidemia/elevated LFTs Agree with holding statins and fenofibrate's. Increased transaminases can be also secondary to passive congestion from right heart failure. Follow-up labs. Thank you so much for this consult. Discussed Condition With: patient and nurse at bedside
--- NOTE | 2018-08-29 13:54 | P.PNFP ---
Subjective Interval history: 83 yo with AFib, cardiomyopathy presents with SOB due to AFib in RVR. HR now improved, this morning he feels well. SOB much improved, feels almost back to his baseline. No chest pains. Tolerating diet. Urinating without difficulty, urine slightly darker in color. <Deangelo Ron S - 08/29/18 13:54> Results - Labs Result diagrams: 08/29/18 06:50 08/30/18 07:30 <Abisai Reyes - 08/30/18 18:36> Abnormal lab results 08/30/18 08/30/18 08/30/18 Range/Units 07:30 07:30 07:30 BUN 35 H (7-18) mg/dL Estimated GFR 55 L (>89) mL/min Random Glucose 117 H (74-106) mg/dL AST 198 H (15-37) U/L ALT 338 H (12-78) U/L B-Natriuretic Peptide 3150 H (0-100) pg/mL Albumin 3.2 L (3.4-5.0) g/dL Free T4 1.49 H (0.76-1.46) ng/dL BMP 08/30/18 07:30 Sodium 139 Potassium 3.5 Chloride 106 Carbon Dioxide 23.7 BUN 35 H Creatinine 1.25 Calcium 8.5 Liver Function 08/30/18 Range/Units 07:30 Total Bilirubin 0.8 (0.2-1.0) mg/dL AST 198 H (15-37) U/L ALT 338 H (12-78) U/L Alkaline Phosphatase 60 (45-117) U/L Albumin 3.2 L (3.4-5.0) g/dL <Abisai Reyes - 08/30/18 18:36> Abnormal lab results 08/28/18 08/28/18 08/28/18 Range/Units 14:00 14:00 14:00 WBC 11.1 H (4.0-11.0) th/mm3 Neut % (Auto) 73.1 H (16.0-70.0) % [place] % (Auto) 9.7 H (0.0-8.0) % Neut # (Auto) 8.1 H (1.8-7.7) th/mm3 [place] # (Auto) 1.1 H (0.0-0.9) th/mm3 PT 15.6 H (9.8-11.6) sec Anion Gap 16 H (5-15) meq/L BUN 47 H (7-18) mg/dL Creatinine 2.45 H (0.60-1.30) mg/dL Estimated GFR 25 L (>89) mL/min POC Glucose (68-110) mg/dl Random Glucose 156 H (74-106) mg/dL AST (15-37) U/L ALT (12-78) U/L Troponin I Less than 0.02 L (0.02-0.05) ng/mL B-Natriuretic Peptide (0-100) pg/mL Albumin (3.4-5.0) g/dL 08/28/18 08/28/18 08/29/18 Range/Units 15:15 21:11 06:50 WBC (4.0-11.0) th/mm3 Neut % (Auto) 73.6 H (16.0-70.0) % [place] % (Auto) (0.0-8.0) % Neut # (Auto) (1.8-7.7) th/mm3 [place] # (Auto) (0.0-0.9) th/mm3 PT (9.8-11.6) sec Anion Gap (5-15) meq/L BUN (7-18) mg/dL Creatinine (0.60-1.30) mg/dL Estimated GFR (>89) mL/min POC Glucose 132 H (68-110) mg/dl Random Glucose (74-106) mg/dL AST (15-37) U/L ALT (12-78) U/L Troponin I (0.02-0.05) ng/mL B-Natriuretic Peptide 2912 H (0-100) pg/mL Albumin (3.4-5.0) g/dL 08/29/18 08/29/18 Range/Units 06:50 06:50 WBC (4.0-11.0) th/mm3 Neut % (Auto) (16.0-70.0) % [place] % (Auto) (0.0-8.0) % Neut # (Auto) (1.8-7.7) th/mm3 [place] # (Auto) (0.0-0.9) th/mm3 PT (9.8-11.6) sec Anion Gap (5-15) meq/L BUN 42 H (7-18) mg/dL Creatinine 1.59 H (0.60-1.30) mg/dL Estimated GFR 42 L (>89) mL/min POC Glucose (68-110) mg/dl Random Glucose (74-106) mg/dL AST 658 H (15-37) U/L ALT 460 H (12-78) U/L Troponin I (0.02-0.05) ng/mL B-Natriuretic Peptide 2859 H (0-100) pg/mL Albumin 3.1 L (3.4-5.0) g/dL Short CBC 08/28/18 08/29/18 Range/Units 14:00 06:50 WBC 11.1 H 9.0 (4.0-11.0) th/mm3 Hgb 15.2 14.1 (13.0-17.0) gm/dL Hct 46.3 41.6 (39.0-51.0) % Plt Count 353 294 (150-450) th/mm3 BMP 08/28/18 08/29/18 14:00 06:50 Sodium 137 140 Potassium 4.4 4.1 Chloride 100 104 Carbon Dioxide 21.5 23.9 BUN 47 H 42 H Creatinine 2.45 H 1.59 H Calcium 9.9 8.7 D Cardiac Enzymes 08/28/18 Range/Units 14:00 Total Creatine Kinase 75 (39-308) U/L Troponin I Less than 0.02 L (0.02-0.05) ng/mL Liver Function 08/29/18 Range/Units 06:50 Total Bilirubin 0.9 (0.2-1.0) mg/dL AST 658 H (15-37) U/L ALT 460 H (12-78) U/L Alkaline Phosphatase 53 (45-117) U/L Albumin 3.1 L (3.4-5.0) g/dL <Deangelo Ron S - 08/29/18 13:54> - Imaging Impressions Chest X-Ray 08/28/18 13:35 CONCLUSION: Clear lungs. <Deangelo Ron S - 08/29/18 13:54> Physical Exam Vital signs: Vital Signs 08/29/18 20:00 08/29/18 21:00 08/29/18 22:00 Temperature 98.1 F Pulse Rate 106 H 96 H 103 H Respiratory Rate 18 Blood Pressure 110/73 Pulse Oximetry 96 08/29/18 23:00 08/30/18 00:00 08/30/18 01:00 Temperature 98 F Pulse Rate 98 H 96 H 103 H Respiratory Rate 18 Blood Pressure 98/54 L Pulse Oximetry 95 08/30/18 02:00 08/30/18 03:00 08/30/18 04:00 Temperature 98.1 F Pulse Rate 102 H 98 H 97 H Respiratory Rate 18 Blood Pressure 107/70 Pulse Oximetry 96 08/30/18 07:00 08/30/18 08:00 08/30/18 08:44 Temperature 98.1 F Pulse Rate 99 H 100 H 95 H Respiratory Rate 22 Blood Pressure 110/75 Pulse Oximetry 94 L 08/30/18 09:00 08/30/18 10:00 08/30/18 11:00 Temperature Pulse Rate 110 H 94 H 109 H Respiratory Rate Blood Pressure Pulse Oximetry 08/30/18 12:00 08/30/18 12:19 08/30/18 13:00 Temperature 98 F Pulse Rate 96 H 108 H 114 H Respiratory Rate 21 Blood Pressure 103/71 Pulse Oximetry 95 08/30/18 14:00 08/30/18 15:00 08/30/18 16:00 Temperature Pulse Rate 110 H 122 H 120 H Respiratory Rate Blood Pressure Pulse Oximetry 08/30/18 16:07 Temperature 98.2 F Pulse Rate 114 H Respiratory Rate 20 Blood Pressure 101/68 Pulse Oximetry 97 Intake & Output 08/29/18 08/30/18 08/30/18 18:59 06:59 18:59 Intake Total 1565 / 1565 1730 / 1730 250 / 250 Output Total 400 / 400 650 / 650 Balance 1165 / 1165 1080 / 1080 250 / 250 Weight 68.5 kg Intake: IV 1085 / 1085 1000 / 1000 250 / 250 NS Inj 1,000 ML @ 84 mls/hr IV. 1000 / 1000 1000 / 1000 200 / 200 CONT .[id number] [facility] Rx#:[id number] Cardizem Inj 125 MG In NS Inj 85 / 85 100 ML @ 5 MG/HR 5 mls/hr IV. CONT TITRATE PRN Rx#:[id number] Flexbumin 25% Inj 50 ML @ 50 50 / 50 mls/hr IV.SIG NOW ONE Rx#: [id number] Oral 480 / 480 730 / 730 Output: Urine 400 / 400 650 / 650 Other: Date of Last Bowel Movement 08/29/18 08/29/18 # Bowel Movements 1 1 <Abisai Reyes - 08/30/18 18:36> Vital Signs 08/28/18 17:30 08/28/18 17:31 08/28/18 18:43 Temperature Pulse Rate 101 H 84 Respiratory Rate 18 18 Blood Pressure 94/67 L 93/64 L Pulse Oximetry 96 96 08/28/18 20:00 08/28/18 22:00 08/28/18 23:00 Temperature 98.4 F Pulse Rate 94 H 86 86 Respiratory Rate 20 Blood Pressure 113/68 Pulse Oximetry 97 08/29/18 00:00 08/29/18 01:00 08/29/18 02:00 Temperature 97.4 F L Pulse Rate 85 82 80 Respiratory Rate 18 Blood Pressure 109/68 Pulse Oximetry 100 08/29/18 03:00 08/29/18 04:00 08/29/18 05:00 Temperature 97.6 F Pulse Rate 94 H 74 70 Respiratory Rate 18 Blood Pressure 112/69 Pulse Oximetry 95 08/29/18 06:00 08/29/18 07:00 08/29/18 08:00 Temperature 98 F Pulse Rate 92 H 83 84 Respiratory Rate 18 Blood Pressure 116/60 Pulse Oximetry 94 L 08/29/18 09:00 08/29/18 11:00 08/29/18 12:00 Temperature Pulse Rate 104 H 76 82 Respiratory Rate Blood Pressure Pulse Oximetry 08/29/18 13:00 Temperature Pulse Rate 88 Respiratory Rate Blood Pressure Pulse Oximetry Intake & Output 08/28/18 08/29/18 08/29/18 18:59 06:59 18:59 Intake Total 1925 / 1925 Output Total 200 / 200 Balance 1725 / 1725 Weight 63.503 kg 67 kg Intake: IV 1625 / 1625 NS Inj 1,000 ML @ 84 mls/hr IV. 1000 / 1000 CONT .[id number] [facility] Rx#:[id number] Cardizem Inj 125 MG In NS Inj 125 / 125 100 ML @ 5 MG/HR 5 mls/hr IV. CONT TITRATE PRN Rx#:[id number] NS Inj 500 ML @ Wide Open IV. 500 / 500 SIG [facility] Rx#:[id number] Oral 300 / 300 Output: Urine 200 / 200 Other: # Voids 1 Date of Last Bowel Movement 08/27/18 # Bowel Movements 0 Weight On Admission 66.5 kg <Deangelo Ron 08/29/18 13:54> - Constitutional no acute distress, average body habitus <Deangelo Ron 08/29/18 13:54> - Routine HEENT Exam Head: Present: normocephalic, atraumatic <Deaneglo Ron 08/29/18 13:54> Eye: Present: PERRL <Deangelo Ron 08/29/18 13:54> ENT: Present: mucous membranes moist <Deangelo Ron 08/29/18 13:54> - Routine Respiratory Exam Present: CTA bilaterally. Absent: accessory muscle use, wheezes, crackles < Deangelo Ron 08/29/18 13:54> - Routine Cardiovascular Exam Present: S1, S2, irregularly irregular. Absent: murmur <Deangelo Ron 13:54> - Routine Abdominal Exam Present: soft. Absent: tenderness, distended <Deangelo Ron 08/29/18 13:54 > - Routine Extremities Exam Absent: edema <Deangelo Ron 08/29/18 13:54> Assessment and Plan - Assessment (1) Atrial fibrillation with rapid ventricular response Code(s): I48.91 - Unspecified atrial fibrillation Status: Acute (2) Cardiomyopathy Code(s): I42.9 - Cardiomyopathy, unspecified Status: Chronic (3) Transaminitis Code(s): R74.0 - Nonspecific elevation of levels of transaminase and lactic acid dehydrogenase [LDH] Status: Acute (4) V-tach Code(s): I47.2 - Ventricular tachycardia Status: Chronic (5) Renal failure, acute on chronic Code(s): N17.9 - Acute kidney failure, unspecified; N18.9 - Chronic kidney disease, unspecified Status: Acute (6) Hyperlipidemia Code(s): E78.5 - Hyperlipidemia, unspecified Status: Acute (7) Hypothyroidism Code(s): E03.9 - Hypothyroidism, unspecified Status: Chronic (8) Nutrition, metabolism, and development symptoms Code(s): R63.8 - Other symptoms and signs concerning food and fluid intake Status: Acute <Abisai Reyes - 08/30/18 18:36> (1) Atrial fibrillation with rapid ventricular response Code(s): I48.91 - Unspecified atrial fibrillation Status: Acute Plan: Initially in AFib with RVR. Rhythm still AFib but rate now controlled with HR about 85 this morning. * Cardiology consulted, recs appreciated * Start amiodarone * wean diltiazem drip as tolerated * Continue Xarelto 50 mg p.o. * Cardiac telemetry (2) Cardiomyopathy Code(s): I42.9 - Cardiomyopathy, unspecified Status: Chronic Plan: Echo 10/2017, EF=17%, LAE, LVH, PILY, Mod MR, Mod AI, Mod TR, aortic cusp thickening BNP elevated at 2912, patient does not appear to be fluid overloaded on exam, no lower extremity swelling or crackles CXR negative * Manage AFib and comorbid conditions as noted * Continue BB (3) Transaminitis Code(s): R74.0 - Nonspecific elevation of levels of transaminase and lactic acid dehydrogenase [LDH] Status: Acute Plan: AST/ALT significantly elevated with AST in the 600s Etiology unclear; possibly injury due to fibrate vs hepatic congestion from right HF vs prior amiodarone toxicity? * Hold fenofibrate / statin * Trend LFTs (4) V-tach Code(s): I47.2 - Ventricular tachycardia Status: Chronic Plan: s/p ICD changed on 07/21/18 (5) Renal failure, acute on chronic Code(s): N17.9 - Acute kidney failure, unspecified; N18.9 - Chronic kidney disease, unspecified Status: Acute Plan: Patient with BUN of 47 and creatinine of 2.45 on admission, now improving, likely pre-renal (hypoperfusion probably related to AFib) Baseline around 1.1 * Continue IV hydration (6) Hyperlipidemia Code(s): E78.5 - Hyperlipidemia, unspecified Status: Acute Plan: Hold fenofibrate given acute LFT elevation (7) Hypothyroidism Code(s): E03.9 - Hypothyroidism, unspecified Status: Chronic Plan: Continue levothyroxine 75mcg daily (8) Nutrition, metabolism, and development symptoms Code(s): R63.8 - Other symptoms and signs concerning food and fluid intake Status: Acute Plan: Fluids: NS 84mls/hr Diet: Cardiac diet vitals q4h, monitor I & Os DVT ppx: Xarelto <Deangelo Ron S - 08/29/18 13:46> - Assessment and Plan Discharge Planning: Pending resolution of THERESA, adjustment of cardiac meds <Deangelo Ron S - 08/29/18 13:54> - Attending Attestation The exam, history, and the medical decision-making described in the above note were completed with the assistance of the resident physician. I reviewed and agree with the findings presented. I attest that I had a [id number] encounter with the patient on the same day, and personally performed and documented my assessment and findings in the medical record. <AmyAbisai - 08/30/18 18:36> <Deangelo Ron S - Last Filed: 08/29/18 13:46> (5) Renal failure, acute on chronic Qualifiers: Acute renal failure type: unspecified Chronic kidney disease stage: unspecified stage Qualified Code(s): N17.9 - Acute kidney failure, unspecified ; N18.9 - Chronic kidney disease, unspecified <AmyAbisai barrientos - Last Filed: 08/30/18 18:36> (5) Renal failure, acute on chronic Qualifiers: Acute renal failure type: unspecified Chronic kidney disease stage: unspecified stage Qualified Code(s): N17.9 - Acute kidney failure, unspecified ; N18.9 - Chronic kidney disease, unspecified <Deangelo Ron - Last Filed: 08/29/18 13:46> (5) Renal failure, acute on chronic Qualifiers: Acute renal failure type: unspecified Chronic kidney disease stage: unspecified stage Qualified Code(s): N17.9 - Acute kidney failure, unspecified ; N18.9 - Chronic kidney disease, unspecified <Abisai Reyes - Last Filed: 08/30/18 18:36> (5) Renal failure, acute on chronic Qualifiers: Acute renal failure type: unspecified Chronic kidney disease stage: unspecified stage Qualified Code(s): N17.9 - Acute kidney failure, unspecified ; N18.9 - Chronic kidney disease, unspecified
[2018-08-29] MEDS: Amiodarone 200 MG Tablet PO SCH ×3 (13:56→20:12)
[2018-08-29] MEDS: Rivaroxaban 15 MG Tablet PO SCH (18:21)
[2018-08-29] MEDS: Latanoprost 0.005% Opth Drops 2.5 ML Bottle EACH EYE SCH (20:22)
--- NOTE | 2018-08-30 00:44 | ECG ---
Date Performed: 08/28/2018 Time Performed: 13:55:00 PTAGE: 83 years EKG: ATRIAL FIBRILLATION WITH RAPID VENTRICULAR RESPONSE MARKED LEFT AXIS DEVIATION INTRAVENTRIC ULAR CONDUCTION DELAY ABNORMAL ECG PREVIOUS TRACING : 08/28/2018 13.54 DOCTOR: aTo Burks Interpretating Date/Time 08/30/2018 00:43:44
[2018-08-30] MEDS: Sod Chloride 0.9% Inj 1,000 ML IV.CONT SCH (03:57)
[2018-08-30] MEDS: Levothyroxine 75 MCG Tablet PO SCH (06:08)
[2018-08-30 08:19] LABS: Albumin 3.2 g/dL (3.4-5.0); Anion Gap 9 meq/L (5-15); Blood Urea Nitrogen 35 mg/dL (7-18); Calcium 8.5 mg/dL (8.5-10.1); Carbon Dioxide 23.7 meq/L (21.0-32.0); Chloride 106 meq/L (98-107); Glomerular Filtration Rate 55 mL/min (>89); Glucose,Random 117 mg/dL (74-106); Potassium 3.5 meq/L (3.5-5.1); Sodium 139 meq/L (136-145)
[2018-08-30 08:20] LABS: Alanine Aminotransferase 338 U/L (12-78)
[2018-08-30 08:24] LABS: Alkaline Phosphatase 60 U/L (45-117); Aspartate Aminotransferase 198 U/L (15-37); Total Protein 7.5 g/dL (6.4-8.2)
[2018-08-30] MEDS: Metoprolol Tartrate 25 MG Tablet PO SCH ×2 (08:58→20:13)
[2018-08-30] MEDS: Amiodarone 200 MG Tablet PO SCH ×2 (08:58→20:13)
[2018-08-30] MEDS ORDERED: Torsemide 20 MG Tablet PO SCH (09:00)
--- NOTE | 2018-08-30 09:28 | P.PNFP ---
Subjective Interval history: No acute events overnight. Patient reports feeling more SOB this morning, currently on 4L NC. Cardizem drip D/C. HR 95-98. Denies CP, fevers, N/V, abdominal pain, and swelling in lower extremities. Results - Labs Result diagrams: 08/29/18 06:50 08/30/18 07:30 Abnormal lab results 08/30/18 08/30/18 Range/Units 07:30 07:30 BUN 35 H (7-18) mg/dL Estimated GFR 55 L (>89) mL/min Random Glucose 117 H (74-106) mg/dL AST 198 H (15-37) U/L ALT 338 H (12-78) U/L B-Natriuretic Peptide 3150 H (0-100) pg/mL Albumin 3.2 L (3.4-5.0) g/dL BMP 08/30/18 07:30 Sodium 139 Potassium 3.5 Chloride 106 Carbon Dioxide 23.7 BUN 35 H Creatinine 1.25 Calcium 8.5 Liver Function 08/30/18 Range/Units 07:30 Total Bilirubin 0.8 (0.2-1.0) mg/dL AST 198 H (15-37) U/L ALT 338 H (12-78) U/L Alkaline Phosphatase 60 (45-117) U/L Albumin 3.2 L (3.4-5.0) g/dL Physical Exam Vital signs: Vital Signs 08/29/18 11:00 08/29/18 12:00 08/29/18 13:00 Temperature Pulse Rate 76 82 88 Respiratory Rate Blood Pressure Pulse Oximetry 08/29/18 14:06 08/29/18 14:40 08/29/18 16:22 Temperature 98.1 F 98 F Pulse Rate 85 99 H Respiratory Rate 20 18 Blood Pressure 83/63 L 100/60 105/75 Pulse Oximetry 97 98 97 08/29/18 20:00 08/29/18 21:00 08/29/18 22:00 Temperature 98.1 F Pulse Rate 106 H 96 H 103 H Respiratory Rate 18 Blood Pressure 110/73 Pulse Oximetry 96 08/29/18 23:00 08/30/18 00:00 08/30/18 01:00 Temperature 98 F Pulse Rate 98 H 96 H 103 H Respiratory Rate 18 Blood Pressure 98/54 L Pulse Oximetry 95 08/30/18 02:00 08/30/18 03:00 08/30/18 04:00 Temperature 98.1 F Pulse Rate 102 H 98 H 97 H Respiratory Rate 18 Blood Pressure 107/70 Pulse Oximetry 96 08/30/18 08:44 Temperature 98.1 F Pulse Rate 95 H Respiratory Rate 22 Blood Pressure 110/75 Pulse Oximetry 94 L Intake & Output 08/29/18 08/30/18 08/30/18 18:59 06:59 18:59 Intake Total 1565 / 1565 1730 / 1730 Output Total 400 / 400 650 / 650 Balance 1165 / 1165 1080 / 1080 Weight 68.5 kg Intake: IV 1085 / 1085 1000 / 1000 NS Inj 1,000 ML @ 84 mls/hr IV. 1000 / 1000 1000 / 1000 CONT .[id number] [facility] Rx#:[id number] Cardizem Inj 125 MG In NS Inj 85 / 85 100 ML @ 5 MG/HR 5 mls/hr IV. CONT TITRATE PRN Rx#:[id number] Oral 480 / 480 730 / 730 Output: Urine 400 / 400 650 / 650 Other: Date of Last Bowel Movement 08/29/18 08/29/18 # Bowel Movements 1 1 Narrative: General: Elderly male in no acute distress Cardio: Irregular rate and rhythm Pulmonary: Clear to auscultation bilaterally, no wheezes or crackles, currently on 4L NC Abdomen soft, nontender nondistended, positive bowel sounds, no guarding, no rebound Extremities: No cyanosis or edema Neuro: Alert and oriented x3 Assessment and Plan - Assessment (1) Atrial fibrillation with rapid ventricular response Code(s): I48.91 - Unspecified atrial fibrillation Status: Acute Plan: Initially in AFib with RVR. Rhythm still AFib but rate now controlled with HR about 95 this morning. * Cardiology consulted, recs appreciated * Continue amiodarone * continue Metoprolol * Diltazem drip d/c * Continue Xarelto 50 mg p.o. * Cardiac telemetry * TSH and T4 pending (2) Cardiomyopathy Code(s): I42.9 - Cardiomyopathy, unspecified Status: Chronic Plan: Echo 10/2017, EF=17%, LAE, LVH, PILY, Mod MR, Mod AI, Mod TR, aortic cusp thickening BNP elevated at 2912, patient does not appear to be fluid overloaded on exam, no lower extremity swelling or crackles CXR negative * Manage AFib and comorbid conditions as noted * Continue BB * continue PO Torsemide (3) Transaminitis Code(s): R74.0 - Nonspecific elevation of levels of transaminase and lactic acid dehydrogenase [LDH] Status: Acute Plan: AST/ALT significantly elevated with AST in the 600s Etiology unclear; possibly injury due to fibrate vs hepatic congestion from right HF vs prior amiodarone toxicity? * Hold fenofibrate / statin * LFTs trending down (4) V-tach Code(s): I47.2 - Ventricular tachycardia Status: Chronic Plan: s/p ICD changed on 07/21/18 (5) Renal failure, acute on chronic Code(s): N17.9 - Acute kidney failure, unspecified; N18.9 - Chronic kidney disease, unspecified Status: Acute Plan: Patient with BUN of 47 and creatinine of 2.45 on admission, now improving, likely pre-renal (hypoperfusion probably related to AFib) Baseline around 1.1 * Improved * BUN 35, Cr 1.25 * D/C fluids (6) Hyperlipidemia Code(s): E78.5 - Hyperlipidemia, unspecified Status: Acute Plan: Hold fenofibrate given acute LFT elevation (7) Hypothyroidism Code(s): E03.9 - Hypothyroidism, unspecified Status: Chronic Plan: Continue levothyroxine 75mcg daily (8) Nutrition, metabolism, and development symptoms Code(s): R63.8 - Other symptoms and signs concerning food and fluid intake Status: Acute Plan: Fluids: PO hydration Diet: Cardiac diet vitals q4h, monitor I & Os DVT ppx: Xarelto Dispo: patient on oxygen, may need O2 walk test before discharge; pending cardio clearance. Possible discharge tomorrow. (5) Renal failure, acute on chronic Qualifiers: Acute renal failure type: unspecified Chronic kidney disease stage: unspecified stage Qualified Code(s): N17.9 - Acute kidney failure, unspecified ; N18.9 - Chronic kidney disease, unspecified
[2018-08-30 11:20] LABS: Free T4 (Free Thyroxine) 1.49 ng/dL (0.76-1.46); Thyroid Stimulating Hormone 0.533 uIU/mL (0.358-3.740)
--- NOTE | 2018-08-30 11:59 | P.PNCA ---
Subjective Interval history: Sitting in a chair. Short of breath with minimal exertion. Medications and Allergies Active Medications: Active Medications Amiodarone HCl (Cordarone) 200 mg PO BID [facility] Last Admin: 08/30/18 08:58 Dose: 200 mg Diltiazem HCl 125 mg/ Sodium (Chloride) 125 mls @ 5 mls/hr IV.CONT TITRATE PRN ; Protocol PRN Reason: Per Protocol Last Titration: 08/29/18 13:59 Dose: Infused Sodium Chloride (Ns Inj) 500 mls @ 0 mls/hr IV.SIG BOLUS [facility] Last Infusion: 08/28/18 19:27 Dose: Infused Latanoprost (Xalatan 0.005% Opth Drops) 1 drop EACH EYE QPM [facility] Last Admin: 08/29/18 20:22 Dose: Not Given Levothyroxine Sodium (Synthroid) 75 mcg PO DAILY@0600 [facility] Last Admin: 08/30/18 06:08 Dose: 75 mcg Metoprolol Tartrate (Lopressor) 25 mg PO BID [facility] Last Admin: 08/30/18 08:58 Dose: 25 mg Rivaroxaban (Xarelto) 15 mg PO QPM [facility] Last Admin: 08/29/18 18:21 Dose: 15 mg Sodium Chloride (Ns Flush) 2 ml IV.FLUSH BID [facility] Last Admin: 08/30/18 08:58 Dose: 2 ml Sodium Chloride (Ns Flush) 2 ml IV.FLUSH PRN PRN PRN Reason: FLUSH AFTER USING IV ACCESS Torsemide (Demadex) 20 mg PO EVERY OTHER DAY [facility] Allergies Allergy/AdvReac Type Severity Reaction Status Date / Time prednisone Allergy Severe Weight loss Verified 08/28/18 14:33 penicillin G Allergy Intermediate Hives Verified 08/28/18 14:33 Sulfa (Sulfonamide Allergy Intermediate Hives Verified 08/28/18 14:33 Antibiotics) Home Medications Medication Instructions Recorded Confirmed Type RX: fenofibrate 160 mg PO DAILY 07/22/18 08/28/18 History RX: latanoprost 1 drp OPHTHALMIC (EYE) QPM 07/22/18 08/28/18 History levothyroxine [Synthroid] 75 mcg PO DAILY 07/22/18 08/28/18 History pitavastatin calcium [Livalo] 2 mg PO 3XW 07/22/18 08/28/18 History RX: metoprolol tartrate 25 mg PO BID 08/28/18 08/28/18 History RX: torsemide 20 mg PO EVERY OTHER DAY 08/28/18 08/28/18 History rivaroxaban [Xarelto] 15 mg PO QPM 08/28/18 08/28/18 History amiodarone 200 mg PO 08/29/18 History Physical Exam Vital signs: Vital Signs 08/29/18 12:00 08/29/18 13:00 08/29/18 14:06 Temperature 98.1 F Pulse Rate 82 88 85 Respiratory Rate 20 Blood Pressure 83/63 L Pulse Oximetry 97 08/29/18 14:40 08/29/18 16:22 08/29/18 20:00 Temperature 98 F 98.1 F Pulse Rate 99 H 106 H Respiratory Rate 18 18 Blood Pressure 100/60 105/75 110/73 Pulse Oximetry 98 97 96 08/29/18 21:00 08/29/18 22:00 08/29/18 23:00 Temperature Pulse Rate 96 H 103 H 98 H Respiratory Rate Blood Pressure Pulse Oximetry 08/30/18 00:00 08/30/18 01:00 08/30/18 02:00 Temperature 98 F Pulse Rate 96 H 103 H 102 H Respiratory Rate 18 Blood Pressure 98/54 L Pulse Oximetry 95 08/30/18 03:00 08/30/18 04:00 08/30/18 08:44 Temperature 98.1 F 98.1 F Pulse Rate 98 H 97 H 95 H Respiratory Rate 18 22 Blood Pressure 107/70 110/75 Pulse Oximetry 96 94 L Intake & Output 08/29/18 08/30/18 08/30/18 18:59 06:59 18:59 Intake Total 1565 / 1565 1730 / 1730 Output Total 400 / 400 650 / 650 Balance 1165 / 1165 1080 / 1080 Weight 68.5 kg Intake: IV 1085 / 1085 1000 / 1000 NS Inj 1,000 ML @ 84 mls/hr IV. 1000 / 1000 1000 / 1000 CONT .[id number] [facility] Rx#:[id number] Cardizem Inj 125 MG In NS Inj 85 / 85 100 ML @ 5 MG/HR 5 mls/hr IV. CONT TITRATE PRN Rx#:[id number] Oral 480 / 480 730 / 730 Output: Urine 400 / 400 650 / 650 Other: Date of Last Bowel Movement 08/29/18 08/29/18 # Bowel Movements 1 1 - Constitutional no acute distress - Routine HEENT Exam Head: Present: normocephalic, atraumatic - Routine Neck Exam Present: supple, JVD. Absent: thyromegaly - Routine Respiratory Exam Comments: Crepitations in the lower third bilaterally more on the left - Routine Cardiovascular Exam Comments: S1 and S2 are variable in intensity. S4 gallop present. 1/6 systolic murmur at the left sternal border. - Routine Abdominal Exam Present: soft, normoactive bowel sounds. Absent: tenderness - Routine Extremities Exam Comments: No clubbing, cyanosis or edema. Results 08/29/18 06:50 08/30/18 07:30 Cardiac Enzymes 08/28/18 08/28/18 08/29/18 Range/Units 14:00 15:15 06:50 AST 658 H (15-37) U/L Troponin I Less than 0.02 L (0.02-0.05) ng/mL B-Natriuretic Peptide 2912 H (0-100) pg/mL 08/29/18 08/30/18 08/30/18 Range/Units 06:50 07:30 07:30 AST 198 H (15-37) U/L Troponin I (0.02-0.05) ng/mL B-Natriuretic Peptide 2859 H 3150 H (0-100) pg/mL Coagulation 08/28/18 08/28/18 08/29/18 Range/Units 14:00 15:15 06:50 PT 15.6 H (9.8-11.6) sec B-Natriuretic Peptide 2912 H 2859 H (0-100) pg/mL 08/30/18 Range/Units 07:30 PT (9.8-11.6) sec B-Natriuretic Peptide 3150 H (0-100) pg/mL CBC 08/28/18 08/29/18 Range/Units 14:00 06:50 WBC 11.1 H 9.0 (4.0-11.0) th/mm3 RBC 5.02 4.57 (4.50-5.90) mil/mm3 Hgb 15.2 14.1 (13.0-17.0) gm/dL Hct 46.3 41.6 (39.0-51.0) % Plt Count 353 294 (150-450) th/mm3 Neut # (Auto) 8.1 H 6.6 (1.8-7.7) th/mm3 Lymph # (Auto) 1.7 1.5 (1.0-4.8) th/mm3 Alcorn # (Auto) 1.1 H 0.6 (0.0-0.9) th/mm3 Eos # (Auto) 0.1 0.2 (0.0-0.4) th/mm3 Baso # (Auto) 0.1 0.1 (0.0-0.2) th/mm3 Comprehensive Metabolic Panel 08/28/18 08/29/18 08/30/18 Range/Units 14:00 06:50 07:30 Sodium 137 140 139 (136-145) meq/L Potassium 4.4 4.1 3.5 (3.5-5.1) meq/L Chloride 100 104 106 (98-107) meq/L Carbon Dioxide 21.5 23.9 23.7 (21.0-32.0) meq/L BUN 47 H 42 H 35 H (7-18) mg/dL Creatinine 2.45 H 1.59 H 1.25 (0.60-1.30) mg/dL Calcium 9.9 8.7 D 8.5 (8.5-10.1) mg/dL AST 658 H 198 H (15-37) U/L ALT 460 H 338 H (12-78) U/L Alkaline Phosphatase 53 60 (45-117) U/L Total Protein 7.3 7.5 (6.4-8.2) g/dL Albumin 3.1 L 3.2 L (3.4-5.0) g/dL Intake and Output 08/29/18 08/30/18 08/30/18 22:59 06:59 14:59 Intake Total 1730 / 1730 1480 / 1480 Output Total 400 / 400 650 / 650 Balance 1330 / 1330 830 / 830 Intake: IV 1000 / 1000 1000 / 1000 NS Inj 1,000 ML @ 84 mls/hr IV. 1000 / 1000 1000 / 1000 CONT .[id number] [facility] Rx#:[id number] Oral 730 / 730 480 / 480 Output: Urine 400 / 400 650 / 650 Other: Date of Last Bowel Movement 08/29/18 08/29/18 # Bowel Movements 1 1 Weight 68.5 kg - Imaging and Cardiology Imaging: Impressions Chest X-Ray 08/28/18 13:35 CONCLUSION: Clear lungs. Assessment and Plan - Plan 1. Atrial Fibrillation- Rate controlled now on p.o. amiodarone and metoprolol. Off IV Cardizem. Watch lites. Free T4 level slightly elevated I would leave further management of the levothyroxine dose up to the medical team. Continue amiodarone [LFTs are improving and likely secondary to passive congestion.] Keep n.p.o. from midnight in case Dr. Contreras wants to proceed with possible EMILEE /cardioversion as planned before. 2. 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 Denies chest pain. Continue beta blockers 3. CMP-SP ICD with recent gen change EF Documented at 17%./Acute on chronic systolic heart failure Elevated BNP noted. Start IV Bumex with albumin to help maintain blood pressure. 4. Hyperlipidemia/elevated LFTs Agree with holding statins and fenofibrate's. Increased transaminases can be also secondary to passive congestion from right heart failure. Follow-up labs. Dr. Contreras or covering egg breaker will resume cardiac care on Mr. Ravi from tomorrow. Thank you so much for this consult.
[2018-08-30] MEDS ORDERED: Albumin Human 25% Inj 50 ML IV.SIG ONE (13:00)
--- NOTE | 2018-08-30 15:46 | P.DIET ---
Nutritional Evaluation Type of nutrition evaluation: initial Nutrition screening: Weight Loss > 10 lbs Screening comments: reported 20-lb wt loss over the last month Subjective Oral Diet Tolerance Assessment Indicates: Chewing problems Subjective Comments: Nursing Assessment w/ reported difficulties chewing. 100% po for meals here. Objective - Diagnosis AFib RVR, Acute on Chronic Renal Failure - Objective % IBW: 90 Body Weight Used for Calculations: Actual (66.5 kg) Energy Needs - Lower Range (kCal/kg): 30 Energy Needs - Upper Range (kCal/kg): 35 Lower Limit kCal/kg (kCals): 1,995 Upper Limit kCal/kg (kCals): 2,328 Lower Limit Protein Factor (Grams per Kg): 1.0 Upper Limit Protein Factor (Grams per Kg): 1.3 Lower Protein Needs (Protein): 67 Upper Protein Needs (Protein): 86 Dietitian Reviewed in Medical Record: Current diet, Curent medications, Intake & Output, Labs, Medical history Diet Order: Cardiac Oral Diet Intake Amount: Excellent 90%+ Objective Comments: PMH: AFib, COPD, DM, glaucoma, HLD, HTN, Hypothyroidism, ICD in place, h/o CABG x 5 2009, Ventricular Tachycardia Labs include: BUN 35, Creatinine 1.25, estGFR 55, Glucose 117 LBM 08/29 Assessment Assessment: Pt is at nutritional risk r/t recent reported unintentional wt loss. Pt w/ Adequate po intake 100% for meals here in EMR. Send Glucerna Shakes BID for additional nutrition(= 220 kcal and 10g protein per serving). Monitor renal labs and glucose. Dietitian will follow. Recommendations: 1. Send Glucerna Shakes BID for additional nutrition 2. Dietitian will follow Dietitian to Monitor: Lab values, Renal labs, Glucose level, Supplement acceptance, Intake & Output, Diet tolerance, Weight change, PO Intake, Medical course
[2018-08-30] MEDS: Rivaroxaban 15 MG Tablet PO SCH (17:41)
[2018-08-30] MEDS: Latanoprost 0.005% Opth Drops 2.5 ML Bottle EACH EYE SCH (17:45)
[2018-08-30] MEDS: Albumin Human 25% Inj 50 ML IV.SIG SCH (20:12)
[2018-08-30] MEDS: Potassium Chloride 10 MEQ ER Capsule PO SCH (20:18)
[2018-08-31 04:58] LABS: Hemoglobin 14.8 gm/dL (13.0-17.0); Mean Corpuscular HGB Conc 32.2 % (32.0-36.0); Mean Corpuscular Hemoglobin 30.3 pg (27.0-34.0); Mean Corpuscular Volume 93.9 fL (80.0-100.0); Mean Platelet Volume 9.1 fL (7.0-11.0); Platelet Count 332 th/mm3 (150-450); Red Cell Distribution Width 14.5 % (11.6-17.2); White Blood Count 11.7 th/mm3 (4.0-11.0)
[2018-08-31 05:20] LABS: Alanine Aminotransferase 477 U/L (12-78); Albumin 3.4 g/dL (3.4-5.0); Alkaline Phosphatase 63 U/L (45-117); Anion Gap 16 meq/L (5-15); Aspartate Aminotransferase 444 U/L (15-37); Blood Urea Nitrogen 36 mg/dL (7-18); Carbon Dioxide 17.1 meq/L (21.0-32.0); Chloride 106 meq/L (98-107); Glomerular Filtration Rate 34 mL/min (>89); Glucose,Random 157 mg/dL (74-106); Potassium 5.4 meq/L (3.5-5.1); Sodium 139 meq/L (136-145); Total Protein 7.7 g/dL (6.4-8.2)
[2018-08-31] MEDS: Levothyroxine 75 MCG Tablet PO SCH (05:32)
[2018-08-31] MEDS: Potassium Chloride 10 MEQ ER Capsule PO SCH (09:04)
[2018-08-31] MEDS: Albumin Human 25% Inj 50 ML IV.SIG SCH ×2 (10:05→21:10)
[2018-08-31] MEDS: Amiodarone 200 MG Tablet PO SCH (10:05)
[2018-08-31] MEDS: Metoprolol Tartrate 25 MG Tablet PO SCH (10:05)
--- NOTE | 2018-08-31 11:16 | P.PNFP ---
Subjective Interval history: Patient was seen at bedside this morning. There were no acute events overnight. Patient reports continued shortness of breath especially with activity. He reports that his breathing is okay while sitting still. Patient is hopeful that his breathing was not and to him from having his EMILEE this morning. Patient also mentioned that he has been worked up several times for a potential left lower lobe pneumonia due to auscultation. It was discussed with the patient that we will begin Ativan to help him relax and breathe better. Patient denies any subjective fevers, chills, chest pain, nausea, or vomiting. All questions were answered to the patient's satisfaction. <Abdiaziz Fountain - 08/31/18 11:15> Results - Labs Result diagrams: 09/04/18 03:40 09/04/18 03:40 <Abisai Reyes - 09/04/18 13:57> Abnormal lab results 09/03/18 09/03/18 09/04/18 Range/Units 17:15 23:55 03:40 RBC 3.96 L (4.50-5.90) mil/mm3 Hgb 11.8 L (13.0-17.0) gm/dL Hct 36.0 L (39.0-51.0) % Neut % (Auto) 90.8 H (16.0-70.0) % Lymph % (Auto) 3.6 L (9.0-44.0) % Neut # (Auto) 8.1 H (1.8-7.7) th/mm3 Lymph # (Auto) 0.3 L (1.0-4.8) th/mm3 Seg Neuts % (Manual) 89 H (16-70) % Lymphocytes % (Manual) 1 L (9-44) % Abs Neuts (Manual) 8.2 H (1.8-7.7) th/mm3 Nucleated RBCs/100 WBC 3 H (0-0) /100 WBC PT (9.8-11.6) sec Potassium (3.5-5.1) meq/L BUN (7-18) mg/dL Creatinine (0.60-1.30) mg/dL Estimated GFR (>89) mL/min POC Glucose 181 H 139 H (68-110) mg/dl Random Glucose (74-106) mg/dL Calcium (8.5-10.1) mg/dL Total Bilirubin (0.2-1.0) mg/dL Direct Bilirubin (0.0-0.2) mg/dL Indirect Bilirubin (0.0-0.8) mg/dL AST (15-37) U/L ALT (12-78) U/L Total Protein (6.4-8.2) g/dL Albumin (3.4-5.0) g/dL 09/04/18 09/04/18 09/04/18 Range/Units 03:40 03:40 05:52 RBC (4.50-5.90) mil/mm3 Hgb (13.0-17.0) gm/dL Hct (39.0-51.0) % Neut % (Auto) (16.0-70.0) % Lymph % (Auto) (9.0-44.0) % Neut # (Auto) (1.8-7.7) th/mm3 Lymph # (Auto) (1.0-4.8) th/mm3 Seg Neuts % (Manual) (16-70) % Lymphocytes % (Manual) (9-44) % Abs Neuts (Manual) (1.8-7.7) th/mm3 Nucleated RBCs/100 WBC (0-0) /100 WBC PT 33.9 H D (9.8-11.6) sec Potassium 3.0 L (3.5-5.1) meq/L BUN 73 H (7-18) mg/dL Creatinine 3.33 H (0.60-1.30) mg/dL Estimated GFR 18 L (>89) mL/min POC Glucose 145 H (68-110) mg/dl Random Glucose 159 H (74-106) mg/dL Calcium 8.0 L (8.5-10.1) mg/dL Total Bilirubin 6.4 H (0.2-1.0) mg/dL Direct Bilirubin 4.5 H (0.0-0.2) mg/dL Indirect Bilirubin 1.9 H (0.0-0.8) mg/dL AST 898 H (15-37) U/L ALT 2795 H (12-78) U/L Total Protein 5.7 L (6.4-8.2) g/dL Albumin 3.1 L (3.4-5.0) g/dL 09/04/18 Range/Units 11:56 RBC (4.50-5.90) mil/mm3 Hgb (13.0-17.0) gm/dL Hct (39.0-51.0) % Neut % (Auto) (16.0-70.0) % Lymph % (Auto) (9.0-44.0) % Neut # (Auto) (1.8-7.7) th/mm3 Lymph # (Auto) (1.0-4.8) th/mm3 Seg Neuts % (Manual) (16-70) % Lymphocytes % (Manual) (9-44) % Abs Neuts (Manual) (1.8-7.7) th/mm3 Nucleated RBCs/100 WBC (0-0) /100 WBC PT (9.8-11.6) sec Potassium (3.5-5.1) meq/L BUN (7-18) mg/dL Creatinine (0.60-1.30) mg/dL Estimated GFR (>89) mL/min POC Glucose 170 H (68-110) mg/dl Random Glucose (74-106) mg/dL Calcium (8.5-10.1) mg/dL Total Bilirubin (0.2-1.0) mg/dL Direct Bilirubin (0.0-0.2) mg/dL Indirect Bilirubin (0.0-0.8) mg/dL AST (15-37) U/L ALT (12-78) U/L Total Protein (6.4-8.2) g/dL Albumin (3.4-5.0) g/dL Short CBC 09/04/18 Range/Units 03:40 WBC 9.0 (4.0-11.0) th/mm3 Hgb 11.8 L (13.0-17.0) gm/dL Hct 36.0 L (39.0-51.0) % Plt Count 190 (150-450) th/mm3 BMP 09/04/18 03:40 Sodium 140 Potassium 3.0 L Chloride 100 Carbon Dioxide 25.1 BUN 73 H Creatinine 3.33 H Calcium 8.0 L Liver Function 09/04/18 09/04/18 Range/Units 03:40 03:40 Total Bilirubin 6.4 H Cancelled (0.2-1.0) mg/dL Direct Bilirubin 4.5 H Cancelled (0.0-0.2) mg/dL AST 898 H (15-37) U/L ALT 2795 H (12-78) U/L Alkaline Phosphatase 84 (45-117) U/L Albumin 3.1 L (3.4-5.0) g/dL <Abisai Reyes - 09/04/18 13:57> Abnormal lab results 08/30/18 08/31/18 08/31/18 Range/Units 07:30 04:06 04:06 WBC 11.7 H (4.0-11.0) th/mm3 Potassium (3.5-5.1) meq/L Carbon Dioxide (21.0-32.0) meq/L Anion Gap (5-15) meq/L BUN (7-18) mg/dL Creatinine (0.60-1.30) mg/dL Estimated GFR (>89) mL/min Random Glucose (74-106) mg/dL Total Bilirubin (0.2-1.0) mg/dL AST (15-37) U/L ALT (12-78) U/L B-Natriuretic Peptide 3942 H (0-100) pg/mL Free T4 1.49 H (0.76-1.46) ng/dL 08/31/18 Range/Units 04:06 WBC (4.0-11.0) th/mm3 Potassium 5.4 H D (3.5-5.1) meq/L Carbon Dioxide 17.1 L (21.0-32.0) meq/L Anion Gap 16 H (5-15) meq/L BUN 36 H (7-18) mg/dL Creatinine 1.89 H (0.60-1.30) mg/dL Estimated GFR 34 L (>89) mL/min Random Glucose 157 H (74-106) mg/dL Total Bilirubin 1.6 H (0.2-1.0) mg/dL AST 444 H (15-37) U/L ALT 477 H (12-78) U/L B-Natriuretic Peptide (0-100) pg/mL Free T4 (0.76-1.46) ng/dL Short CBC 08/31/18 Range/Units 04:06 WBC 11.7 H (4.0-11.0) th/mm3 Hgb 14.8 (13.0-17.0) gm/dL Hct 46.0 (39.0-51.0) % Plt Count 332 (150-450) th/mm3 BMP 08/31/18 04:06 Sodium 139 Potassium 5.4 H D Chloride 106 Carbon Dioxide 17.1 L BUN 36 H Creatinine 1.89 H Calcium 9.0 Liver Function 08/31/18 Range/Units 04:06 Total Bilirubin 1.6 H (0.2-1.0) mg/dL AST 444 H (15-37) U/L ALT 477 H (12-78) U/L Alkaline Phosphatase 63 (45-117) U/L Albumin 3.4 (3.4-5.0) g/dL <Abdiaziz Fountain - 08/31/18 11:15> - Imaging Impressions Head CT 09/04/18 00:00 CONCLUSION: 1. Negative noncontrast head CT. 2. Suboptimal study secondary to motion artifact. . Liver Ultrasound 09/04/18 00:00 CONCLUSION: 1. Small nodular liver with trace ascites 2. No focal mass. <Abisai Reyes - 09/04/18 13:57> Physical Exam Vital signs: Vital Signs 09/03/18 14:00 09/03/18 15:00 09/03/18 16:00 Temperature 98.7 F Pulse Rate 87 87 88 Respiratory Rate 21 18 21 Blood Pressure 115/68 111/70 117/72 Pulse Oximetry 97 97 96 09/03/18 16:27 09/03/18 17:00 09/03/18 18:00 Temperature Pulse Rate 86 94 H 87 Respiratory Rate 18 20 24 Blood Pressure 124/66 108/67 Pulse Oximetry 96 96 09/03/18 19:00 09/03/18 20:00 09/03/18 21:00 Temperature 97.4 F L Pulse Rate 91 H 91 H 98 H Respiratory Rate 20 24 26 H Blood Pressure 112/70 120/69 115/73 Pulse Oximetry 96 95 94 L 09/03/18 22:00 09/03/18 23:00 09/04/18 00:00 Temperature 97.8 F Pulse Rate 101 H 105 H 106 H Respiratory Rate 19 16 22 Blood Pressure 115/73 124/66 114/73 Pulse Oximetry 94 L 95 95 09/04/18 01:00 09/04/18 02:00 09/04/18 03:00 Temperature Pulse Rate 94 H 88 98 H Respiratory Rate 18 15 23 Blood Pressure 107/70 117/64 Pulse Oximetry 93 L 94 L 93 L 09/04/18 03:01 09/04/18 04:00 09/04/18 05:00 Temperature 97.7 F Pulse Rate 91 H 98 H 104 H Respiratory Rate 19 19 21 Blood Pressure 126/71 119/74 136/78 Pulse Oximetry 93 L 92 L 95 09/04/18 06:00 09/04/18 07:00 09/04/18 08:00 Temperature Pulse Rate 120 H 122 H 121 H Respiratory Rate 22 Blood Pressure 100/72 Pulse Oximetry 92 L 09/04/18 10:00 09/04/18 11:00 09/04/18 12:00 Temperature Pulse Rate 109 H 111 H 99 H Respiratory Rate Blood Pressure Pulse Oximetry 09/04/18 13:00 09/04/18 13:12 Temperature Pulse Rate 106 H 106 H Respiratory Rate 22 Blood Pressure Pulse Oximetry 97 Intake & Output 09/03/18 09/04/18 09/04/18 18:59 06:59 18:59 Intake Total 540 / 540 500 / 500 600 / 600 Output Total 1700 / 1700 1775 / 1775 Balance -1160 / -1160 -1275 / -1275 600 / 600 Weight 77.6 kg Intake: IV 540 / 540 500 / 500 600 / 600 KCl 40 mEq Premix Inj 40 meq In 100 / 100 100 ml @ 0 mls/hr .ROUTE .STK- MED ONE Rx#:[id number] Cordarone Inj 450 MG In D5W Inj 250 / 250 250 / 250 241 ML @ 1 MG/MIN 33.33 mls/hr IV.CONT TITRATE PRN Rx#: [id number] Pitressin Inj 40 UNIT In D5W 0 / 0 Inj 98 ML @ 0.04 UNITS/MIN 6 mls/hr IV.CONT CONT [facility] Rx#: [id number] Flexbumin 25% Inj 50 ML @ 50 50 / 50 50 / 50 50 / 50 mls/hr IV.SIG Q12H [facility] Rx#: [id number] Azithromycin Inj 500 MG In NS 250 / 250 Inj 250 ML @ 250 mls/hr IV.SIG Q24H [facility] Rx#:[id number] Azactam Inj 2 GM In NS Inj 100 200 / 200 200 / 200 ML @ 200 mls/hr IV.SIG Q8H [facility] Rx#:[id number] Magnesium Sulfate 1 gm/D5W 100 200 / 200 ml Premix 200 ML @ 0 mls/hr IV. SIG .STK-MED ONE Rx#:[id number] Levophed Inj 4 MG In NS Inj 246 0 / 0 ML @ 2 MCG/MIN 7.5 mls/hr IV. SIG TITRATE PRN Rx#:[id number] fentaNYL 10 mcg/mL Premix Drip 40 / 40 2,500 mcg In 250 ml @ 50 MCG/HR 5 mls/hr IV.SIG TITRATE PRN Rx #:[id number] Output: Urine Amount (Catheter) 1700 / 1700 1775 / 1775 Indwelling Urethral Catheter 1700 / 1700 177 / 1775 Other: Date of Last Bowel Movement 08/29/18 09/29/18 08/29/18 <Abisai Reyes - 09/04/18 13:57> Vital Signs 08/30/18 12:00 08/30/18 12:19 08/30/18 13:00 Temperature 98 F Pulse Rate 96 H 108 H 114 H Respiratory Rate 21 Blood Pressure 103/71 Pulse Oximetry 95 08/30/18 14:00 08/30/18 15:00 08/30/18 16:00 Temperature Pulse Rate 110 H 122 H 120 H Respiratory Rate Blood Pressure Pulse Oximetry 08/30/18 16:07 08/30/18 20:00 08/30/18 20:50 Temperature 98.2 F 98.4 F Pulse Rate 114 H 123 H Respiratory Rate 20 22 Blood Pressure 101/68 102/74 Pulse Oximetry 97 95 97 08/30/18 21:00 08/30/18 22:00 08/30/18 22:53 Temperature Pulse Rate 111 H 100 H Respiratory Rate Blood Pressure Pulse Oximetry 96 08/30/18 23:00 08/31/18 00:00 08/31/18 01:00 Temperature 98.1 F Pulse Rate 110 H 102 H 102 H Respiratory Rate 22 Blood Pressure 96/75 L Pulse Oximetry 96 08/31/18 02:00 08/31/18 03:00 08/31/18 03:57 Temperature 98.2 F Pulse Rate 92 H 88 88 Respiratory Rate 20 Blood Pressure 144/66 H Pulse Oximetry 97 08/31/18 04:00 08/31/18 05:00 08/31/18 06:00 Temperature Pulse Rate 92 H 98 H 98 H Respiratory Rate Blood Pressure Pulse Oximetry 08/31/18 08:43 Temperature Pulse Rate Respiratory Rate Blood Pressure Pulse Oximetry 95 Intake & Output 08/30/18 08/31/18 08/31/18 18:59 06:59 18:59 Intake Total 250 / 250 780 / 780 Output Total 650 / 650 Balance 250 / 250 130 / 130 Weight 69 kg Intake: IV 250 / 250 50 / 50 NS Inj 1,000 ML @ 84 mls/hr IV. 200 / 200 CONT .[id number] [facility] Rx#:[id number] Flexbumin 25% Inj 50 ML @ 50 50 / 50 50 / 50 mls/hr IV.SIG Q12H [facility] Rx#: [id number] Oral 730 / 730 Output: Urine 650 / 650 Other: Date of Last Bowel Movement 08/29/18 08/29/18 # Bowel Movements 0 <Abdiaziz Fountain - 08/31/18 11:15> Narrative: General: Elderly male visibly short of breath on 2 L nasal cannula Cardio: Irregular rate and rhythm Pulmonary: Wheezing and right lower lobe with significant decreased breath sounds in left lower lobe. Potential lower left lobe consolidation on percussion. No crackles appreciated on auscultation. Abdomen soft, nontender nondistended, positive bowel sounds, no guarding, no rebound Extremities: No cyanosis or edema Neuro: Alert and oriented x3 <Abdiaziz Fountain - 08/31/18 11:15> Assessment and Plan - Assessment (1) Cardiogenic shock (2) Respiratory failure (3) Shock liver (4) Streptococcus viridans infection (5) Bilateral pneumonia (6) Renal failure, acute on chronic Code(s): N17.9 - Acute kidney failure, unspecified; N18.9 - Chronic kidney disease, unspecified Status: Acute Plan: Patient with BUN of 47 and creatinine of 2.45 on admission, now improving, likely pre-renal (hypoperfusion probably related to AFib) Baseline around 1.1. Slight bump in creatinine overnight. * Improved * BUN 36, Cr 1.89 * (7) Atrial fibrillation with rapid ventricular response Code(s): I48.91 - Unspecified atrial fibrillation Status: Acute Plan: Initially in AFib with RVR. Rhythm still AFib but rate now controlled with HR about 95 this morning. * Cardiology consulted, recs appreciated * Continue amiodarone * continue Metoprolol * Diltazem drip d/c * Continue Xarelto 50 mg p.o. * Cardiac telemetry * TSH 0.533, free T4 1.49 * Patient to go for EMILEE this morning (8) Cardiomyopathy Code(s): I42.9 - Cardiomyopathy, unspecified Status: Chronic Plan: Echo 10/2017, EF=17%, LAE, LVH, PILY, Mod MR, Mod AI, Mod TR, aortic cusp thickening BNP continues to rise at 3942 this morning, patient does not appear to be fluid overloaded on exam, no lower extremity swelling or crackles CXR negative * Manage AFib and comorbid conditions as noted * Continue BB * continue PO Torsemide * Follow-up with repeat chest x-ray * Continue Ativan 1 mg every 6 * Follow-up with EMILEE (9) V-tach Code(s): I47.2 - Ventricular tachycardia Status: Chronic Plan: s/p ICD changed on 07/21/18 (10) Hyperlipidemia Code(s): E78.5 - Hyperlipidemia, unspecified Status: Acute Plan: Hold fenofibrate given acute LFT elevation (11) Hypothyroidism Code(s): E03.9 - Hypothyroidism, unspecified Status: Chronic Plan: TSH within normal limits, free T4 just above the upper limit of normal. -Continue levothyroxine 75mcg daily (12) Transaminitis Code(s): R74.0 - Nonspecific elevation of levels of transaminase and lactic acid dehydrogenase [LDH] Status: Acute Plan: AST/ALT significantly elevated with AST in the 600s Etiology unclear; possibly injury due to fibrate vs hepatic congestion from right HF vs prior amiodarone toxicity? * Hold fenofibrate / statin * LFTs trending down initially but have gone back up today * Trend LFTs (13) Nutrition, metabolism, and development symptoms Code(s): R63.8 - Other symptoms and signs concerning food and fluid intake Status: Acute Plan: Fluids: PO hydration Diet: Cardiac diet vitals q4h, monitor I & Os DVT ppx: Xarelto Dispo: patient on oxygen, may need O2 walk test before discharge; pending cardio clearance. Possible discharge tomorrow. <Abdiaziz Fountain 08/31/18 11:06> (1) Cardiogenic shock Code(s): R57.0 - Cardiogenic shock Status: Acute (2) Respiratory failure Code(s): J96.90 - Respiratory failure, unspecified, unspecified whether with hypoxia or hypercapnia Status: Acute (3) Shock liver Code(s): K72.00 - Acute and subacute hepatic failure without coma Status: Acute (4) Streptococcus viridans infection Code(s): A49.1 - Streptococcal infection, unspecified site Status: Acute (5) Bilateral pneumonia Code(s): J18.9 - Pneumonia, unspecified organism Status: Acute (6) Renal failure, acute on chronic Code(s): N17.9 - Acute kidney failure, unspecified; N18.9 - Chronic kidney disease, unspecified Status: Acute (7) Atrial fibrillation with rapid ventricular response Code(s): I48.91 - Unspecified atrial fibrillation Status: Acute (8) Cardiomyopathy Code(s): I42.9 - Cardiomyopathy, unspecified Status: Chronic (9) V-tach Code(s): I47.2 - Ventricular tachycardia Status: Chronic (10) Hyperlipidemia Code(s): E78.5 - Hyperlipidemia, unspecified Status: Acute (11) Hypothyroidism Code(s): E03.9 - Hypothyroidism, unspecified Status: Chronic <Abisai Reyes - 09/04/18 13:57> - Attending Attestation The exam, history, and the medical decision-making described in the above note were completed with the assistance of the resident physician. I reviewed and agree with the findings presented. I attest that I had a [id number] encounter with the patient on the same day, and personally performed and documented my assessment and findings in the medical record. <Abisai Reyes - 09/04/18 13:57> <Abdiaziz Fountain O - Last Filed: 08/31/18 11:06> (6) Renal failure, acute on chronic Qualifiers: Acute renal failure type: unspecified Chronic kidney disease stage: unspecified stage Qualified Code(s): N17.9 - Acute kidney failure, unspecified ; N18.9 - Chronic kidney disease, unspecified <Abisai Reyes - Last Filed: 09/04/18 13:57> (6) Renal failure, acute on chronic Qualifiers: Acute renal failure type: unspecified Chronic kidney disease stage: unspecified stage Qualified Code(s): N17.9 - Acute kidney failure, unspecified ; N18.9 - Chronic kidney disease, unspecified <Abdiaziz Fountain O - Last Filed: 08/31/18 11:06> (6) Renal failure, acute on chronic Qualifiers: Acute renal failure type: unspecified Chronic kidney disease stage: unspecified stage Qualified Code(s): N17.9 - Acute kidney failure, unspecified ; N18.9 - Chronic kidney disease, unspecified <Abisai Reyes - Last Filed: 09/04/18 13:57> (6) Renal failure, acute on chronic Qualifiers: Acute renal failure type: unspecified Chronic kidney disease stage: unspecified stage Qualified Code(s): N17.9 - Acute kidney failure, unspecified ; N18.9 - Chronic kidney disease, unspecified
--- NOTE | 2018-08-31 14:22 | XR ---
EXAM DATE: 08/31/2018 2:19 PM EDT AGE/SEX: 83 years / Male INDICATIONS: . Shortness of breath. CLINICAL DATA: This is the patient's subsequent encounter. Patient reports that signs and symptoms h ave been present for 4 - 6 days and indicates a pain score of 0/10. MEDICAL/SURGICAL HISTORY: Chronic obstructive pulmonary disease. Hypertension. Congestive hea rt failure. A-Fib Pacemaker. [place] [facility] [place]. . FINDINGS: The heart is mildly enlarged. Heart size is stable compared to previous. There is a transvenous pacer in place. The patient is post median sternotomy. There is no pleural effusion. The lungs are clear. The visualized bony structures demonstrate degenerative changes in the shoulders but are otherwise in tact. CONCLUSION: Mild cardiomegaly. No acute findings. Stable compared to prior. Electronically signed by: Randy Marcus MD 08/31/2018 2:21 PM EDT
--- NOTE | 2018-08-31 16:34 | P.PNCA ---
Subjective Interval history: Patient denies any CP, pressure, palpitations, dizziness or edema. Patient is very sleepy at this time due to medications that he received. Medications and Allergies Allergies Allergy/AdvReac Type Severity Reaction Status Date / Time prednisone Allergy Severe Weight loss Verified 08/28/18 14:33 penicillin G Allergy Intermediate Hives Verified 08/28/18 14:33 Sulfa (Sulfonamide Allergy Intermediate Hives Verified 08/28/18 14:33 Antibiotics) Home Medications Medication Instructions Recorded Confirmed Type fenofibrate 160 mg PO DAILY 07/22/18 08/28/18 History latanoprost 1 drp OPHTHALMIC (EYE) QPM 07/22/18 08/28/18 History levothyroxine [Synthroid] 75 mcg PO DAILY 07/22/18 08/28/18 History pitavastatin calcium [Livalo] 2 mg PO 3XW 07/22/18 08/28/18 History metoprolol tartrate 25 mg PO BID 08/28/18 08/28/18 History rivaroxaban [Xarelto] 15 mg PO QPM 08/28/18 08/28/18 History torsemide 20 mg PO EVERY OTHER DAY 08/28/18 08/28/18 History amiodarone 200 mg PO 08/29/18 History Active Medications: Active Medications Amiodarone HCl (Cordarone) 200 mg PO BID [facility] Last Admin: 08/31/18 10:05 Dose: 200 mg Bumetanide (Bumex Inj) 1 mg IV.PUSH Q12H [facility] Last Admin: 08/31/18 10:06 Dose: 1 mg Diltiazem HCl 125 mg/ Sodium (Chloride) 125 mls @ 5 mls/hr IV.CONT TITRATE PRN ; Protocol PRN Reason: Per Protocol Last Titration: 08/29/18 13:59 Dose: Infused Sodium Chloride (Ns Inj) 500 mls @ 0 mls/hr IV.SIG BOLUS [facility]ITA Last Infusion: 08/28/18 19:27 Dose: Infused Albumin Human (Flexbumin 25% Inj) 50 mls @ 50 mls/hr IV.SIG Q12H [facility]ITA Last Infusion: 08/31/18 11:14 Dose: Infused Latanoprost (Xalatan 0.005% Opth Drops) 1 drop EACH EYE QPM [facility] Last Admin: 08/30/18 17:45 Dose: 1 drop Levothyroxine Sodium (Synthroid) 75 mcg PO DAILY@0600 [facility] Last Admin: 08/31/18 05:32 Dose: 75 mcg Lorazepam (Ativan Inj) 1 mg IV.PUSH Q6H [facility] Last Admin: 08/31/18 15:20 Dose: Not Given Metoprolol Tartrate (Lopressor) 25 mg PO BID [facility] Last Admin: 08/31/18 10:05 Dose: Not Given Potassium Chloride (Kcl) 20 meq PO BID [facility] Last Admin: 08/31/18 09:04 Dose: Not Given Rivaroxaban (Xarelto) 15 mg PO QPM [facility] Last Admin: 08/30/18 17:41 Dose: 15 mg Sodium Chloride (Ns Flush) 2 ml IV.FLUSH BID [facility] Last Admin: 08/31/18 10:07 Dose: 2 ml Sodium Chloride (Ns Flush) 2 ml IV.FLUSH PRN PRN PRN Reason: FLUSH AFTER USING IV ACCESS Physical Exam Vital signs: Vital Signs 08/30/18 20:00 08/30/18 20:50 08/30/18 21:00 Temperature 98.4 F Pulse Rate 123 H 111 H Respiratory Rate 22 Blood Pressure 102/74 Pulse Oximetry 95 97 08/30/18 22:00 08/30/18 22:53 08/30/18 23:00 Temperature Pulse Rate 100 H 110 H Respiratory Rate Blood Pressure Pulse Oximetry 96 08/31/18 00:00 08/31/18 01:00 08/31/18 02:00 Temperature 98.1 F Pulse Rate 102 H 102 H 92 H Respiratory Rate 22 Blood Pressure 96/75 L Pulse Oximetry 96 08/31/18 03:00 08/31/18 03:57 08/31/18 04:00 Temperature 98.2 F Pulse Rate 88 88 92 H Respiratory Rate 20 Blood Pressure 144/66 H Pulse Oximetry 97 08/31/18 05:00 08/31/18 06:00 08/31/18 07:00 Temperature Pulse Rate 98 H 98 H 88 Respiratory Rate Blood Pressure Pulse Oximetry 08/31/18 08:00 08/31/18 08:43 08/31/18 09:00 Temperature 98.0 F Pulse Rate 92 H 94 H Respiratory Rate 20 Blood Pressure 92/63 L Pulse Oximetry 96 95 08/31/18 10:00 08/31/18 11:00 08/31/18 12:00 Temperature Pulse Rate 92 H 96 H 96 H Respiratory Rate Blood Pressure Pulse Oximetry 08/31/18 13:00 08/31/18 14:00 08/31/18 15:00 Temperature Pulse Rate 87 90 90 Respiratory Rate Blood Pressure Pulse Oximetry Intake & Output 08/30/18 08/31/18 08/31/18 18:59 06:59 18:59 Intake Total 250 / 250 780 / 780 50 / 50 Output Total 650 / 650 Balance 250 / 250 130 / 130 50 / 50 Weight 69 kg Intake: IV 250 / 250 50 / 50 50 / 50 NS Inj 1,000 ML @ 84 mls/hr IV. 200 / 200 CONT .[id number] ANNITA Rx#:[id number] Flexbumin 25% Inj 50 ML @ 50 50 / 50 50 / 50 50 / 50 mls/hr IV.SIG Q12H ANNITA Rx#: [id number] Oral 730 / 730 Output: Urine 650 / 650 Other: Date of Last Bowel Movement 08/29/18 08/29/18 # Bowel Movements 0 - Constitutional no acute distress - Routine HEENT Exam Head: Present: normocephalic Eye: Present: PERRL ENT: Present: mucous membranes moist - Routine Neck Exam Present: full ROM - Routine Respiratory Exam Present: CTA bilaterally - Routine Cardiovascular Exam Present: S1, S2, irregular rhythm - Routine Abdominal Exam Present: normoactive bowel sounds - Routine Extremities Exam Present: full ROM, pulses intact, normal capillary refill. Absent: cyanosis, clubbing, edema - Routine Skin Exam Present: intact - Routine Neurological Exam Present: oriented X3 sleepy - Detailed Neurological Exam: Coma Scale Eye Opening: Spontaneous Verbal Response: Oriented Motor Response: Obey commands [place] Coma Scale Total: 15 - Routine Psychiatric Exam Present: normal affect Results 08/31/18 04:06 08/31/18 04:06 Cardiac Enzymes 08/30/18 08/30/18 08/31/18 Range/Units 07:30 07:30 04:06 AST 198 H (15-37) U/L B-Natriuretic Peptide 3150 H 3942 H (0-100) pg/mL 08/31/18 Range/Units 04:06 AST 444 H (15-37) U/L B-Natriuretic Peptide (0-100) pg/mL Coagulation 08/30/18 08/31/18 Range/Units 07:30 04:06 B-Natriuretic Peptide 3150 H 3942 H (0-100) pg/mL CBC 08/31/18 Range/Units 04:06 WBC 11.7 H (4.0-11.0) th/mm3 RBC 4.90 (4.50-5.90) mil/mm3 Hgb 14.8 (13.0-17.0) gm/dL Hct 46.0 (39.0-51.0) % Plt Count 332 (150-450) th/mm3 Comprehensive Metabolic Panel 08/30/18 08/31/18 Range/Units 07:30 04:06 Sodium 139 139 (136-145) meq/L Potassium 3.5 5.4 H D (3.5-5.1) meq/L Chloride 106 106 (98-107) meq/L Carbon Dioxide 23.7 17.1 L (21.0-32.0) meq/L BUN 35 H 36 H (7-18) mg/dL Creatinine 1.25 1.89 H (0.60-1.30) mg/dL Calcium 8.5 9.0 (8.5-10.1) mg/dL AST 198 H 444 H (15-37) U/L ALT 338 H 477 H (12-78) U/L Alkaline Phosphatase 60 63 (45-117) U/L Total Protein 7.5 7.7 (6.4-8.2) g/dL Albumin 3.2 L 3.4 (3.4-5.0) g/dL Intake and Output 08/31/18 08/31/18 08/31/18 06:59 14:59 22:59 Intake Total 480 / 480 50 / 50 Output Total 650 / 650 Balance -170 / -170 50 / 50 Intake: IV 50 / 50 Flexbumin 25% Inj 50 ML @ 50 50 / 50 mls/hr IV.SIG Q12H ANNITA Rx#: [id number] Oral 480 / 480 Output: Urine 650 / 650 Other: Date of Last Bowel Movement 08/29/18 08/29/18 # Bowel Movements 0 Weight 69 kg - Imaging and Cardiology Imaging: Impressions Chest X-Ray 08/31/18 00:00 CONCLUSION: Mild cardiomegaly. No acute findings. Stable compared to prior. Assessment and Plan - Assessment (1) Cardiomyopathy Code(s): I42.9 - Cardiomyopathy, unspecified Status: Chronic (2) Atrial fibrillation Code(s): I48.91 - Unspecified atrial fibrillation Status: Chronic (3) V-tach Code(s): I47.2 - Ventricular tachycardia Status: Chronic (4) CAD (coronary artery disease) of artery bypass graft Code(s): I25.810 - Atherosclerosis of coronary artery bypass graft(s) without angina pectoris Status: Chronic (5) Nutrition, metabolism, and development symptoms Code(s): R63.8 - Other symptoms and signs concerning food and fluid intake Status: Acute (6) Hypothyroidism Code(s): E03.9 - Hypothyroidism, unspecified Status: Chronic (7) Atrial fibrillation with rapid ventricular response Code(s): I48.91 - Unspecified atrial fibrillation Status: Acute - Plan Patient remains in atrial fibrillation with paced beats. We will schedule a EMILEE and cardioversion for tomorrow. Keep patient NPO after midnight tonight. Have consent signed for EMILEE and cardioversion and placed on chart. Continue anticoagulation with Xarelto (he has been on it for the last month). Patient seen and evaluated by Dr. Juárez who participated in care, management and decision making. - Attending Attestation Patient seen and examined. I reviewed and agree with the evaluation and plan as presented. Continue tx for pneumonia. Will proceed with EMILEE and cardioversion tomorrow. D/w pt and .
[2018-08-31] MEDS: Rivaroxaban 15 MG Tablet PO SCH (17:44)
[2018-08-31] MEDS: Latanoprost 0.005% Opth Drops 2.5 ML Bottle EACH EYE SCH (17:51)
[2018-08-31] MEDS ORDERED: Sodium Chlor 0.9% Inj 250 ML IV.SIG ONE (19:00)
[2018-08-31] MEDS ORDERED: Sodium Bicarbonate 8.4% Inj 50 MEQ/50 ML Syringe ONE (20:58)
[2018-08-31] MEDS ORDERED: Etomidate Inj 40 MG/20 ML Vial IV.PUSH ONE (20:59)
[2018-08-31] MEDS: Norepinephrine Inj 4 MG in Sodium Chlor 0.9% Inj 246 ML IV.SIG PRN (21:10)
[2018-08-31 21:12] LABS: ABG Base Excess -20.5 mmol/L (-2-2); ABG PCO2 26 mmHg (38-42); ABG PO2 58 mmHG (61-120)
--- NOTE | 2018-08-31 21:19 | P.PNADD ---
Addendum to Inpatient Note Reason for Addendum: Additional Documentation Additional information: Halicat was called on pt at ~2000 while resident team was participating in another Halicat. Resident team arrived to the ICU after patient was already transferred. The team led by Dr. Serrano had just completed intubation and a central line was being placed. According to the pt's nurse, he had received Ativan at ~1030 this morning. After this he was sedated throughout the day and became hypotensive and hard to arouse at the beginning of her shift. He was also developing difficulty breathing. Therefore, a Halicat was called. Please refer to Critical Care's note for management/plan. PRASHANTW Dr. Serrano, Dr. Mccoy
--- NOTE | 2018-08-31 21:23 | P.PCN ---
Date of procedure: 08/31/18 Pre-op diagnosis: Acute resp failure Post-op diagnosis: same Procedure: Rapid Sequence Intubation was conducted. The patient received 10 mg etomidate IV , and 50 mg mg of rocuronium IV for adequate paralysis. Cricoid pressure was maintained from time induction agent was given to time of cuff balloon inflation. Using a direct laryngoscopy MAC 4 blade and a size 8.0 endotracheal tube with stylet, the patient was intubated on the first attempt. The stylet was removed and cuff balloon was inflated. Appropriate endotracheal tube position was confirmed by direct visualization of vocal cord passage, fogging of the tube, CO2 colometric indicator and symmetric breath sounds. The tube was secured at 24 cm at the lips. Post intubation chest x-ray is pending at this time. Anesthesia: GETA Surgeon: Beka Serrano Estimated blood loss (mL): 0 Pathology: other (sputum cx) Condition: critical Disposition: ICU
[2018-08-31] MEDS ORDERED: DOPamine 400 MG/250 ML Premix 400 MG/250 ML BAG IV.CONT ONE (21:25)
--- NOTE | 2018-08-31 21:25 | P.PCN ---
Date of procedure: 08/31/18 Pre-op diagnosis: Shock Post-op diagnosis: same Procedure: Right subclavian central line placement Emergency central line placement due to shock. I wore a surgical cap, mask with protective eyewear, full gown and sterile gloves throughout the procedure. Right subclavian region was prepped using chlorhexidine scrub and draped in sterile fashion. Anesthesia was achieved over the vein using 1% lidocaine. The introducer needle was inserted into right subclavian vein and venous blood was withdrawn. The syringe was removed and a guidewire was advanced into the introducer needle. A small incision was made at the skin surface with a scalpel and the introducer needle was exchanged for a dilator over the guidewire. After appropriate dilation was obtained, the dilator was exchanged over the wire for a triple lumen, 7F, antibiotic coated central venous catheter. The wire was removed and the catheter was sutured in place at 18 cm. A stat block was not used due to lack of adherence to the skin. A sterile central line dressing was placed over the catheter at the insertion site. The patient tolerated the procedure. At time of procedure completion, all ports aspirated and flushed properly. Post-procedure chest x-ray is pending at this time. Anesthesia: local Surgeon: Beka Serrano Estimated blood loss (mL): 1 Pathology: none sent Condition: critical Disposition: ICU
[2018-08-31] MEDS ORDERED: Digoxin Inj 500 MCG/2 ML Ampul ONE (21:30)
--- NOTE | 2018-08-31 21:37 | XR ---
EXAM DATE: 08/31/2018 9:32 PM EDT AGE/SEX: 83 years / Male INDICATIONS: Post intubation and central line placement. CLINICAL DATA: This is the patient's subsequent encounter. Patient reports that signs and symptoms h ave been present for 1 month and indicates a pain score of Nonresponsive. MEDICAL/SURGICAL HISTORY: . Hypertension. Chronic obstructive pulmonary disease. Congestive hea rt failure. AFIB. CABG. Pacemaker. COMPARISON: C, CHEST 1V SINGLE AP, 07/24/2018. . FINDINGS: Interval placement of ETT with tip approximately 2.3 cm above the judie. Right subclavian central li ne with tip near the cavoatrial junction. Stable dual lead AICD device and postsurgical features of p rior cardiac surgery. Stable left lower lung zone airspace disease. Interval development of ill-defin ed right lower lung zone airspace disease. Remainder of the exam is unchanged. CONCLUSION: 1. ETT in good position. Right subclavian central line in good position without pneumothorax. 2. Developing right lower lung zone ill-defined airspace disease. Electronically signed by: Larry Alston MD 08/31/2018 9:35 PM EDT
--- NOTE | 2018-08-31 21:59 | P.PCN ---
Date of procedure: 08/31/18 Pre-op diagnosis: Severe shock Post-op diagnosis: same Procedure: Right femoral arterial line placement DETAILS OF PROCEDURE The skin was cleansed with Chloraprep. Additional barrier precautions included large sterile drape, sterile gloves, sterile gown, face mask, and hat. The femoral artery was accessed with Arrow radial catheter kit. The guide wire was advanced. The catheter was advanced over the wire and needle and guidewire were removed. The catheter was connected to a transducer line and flushed with saline. The video monitor displayed normal arterial wave forms. The catheter was secured with 2-0 silk. A sterile dressing with antibiotic disc was applied. Anesthesia: local Surgeon: Beka Serrano Estimated blood loss (mL): 1 Pathology: none sent Condition: critical Disposition: ICU
[2018-08-31] MEDS ORDERED: Vancomycin Inj 1 GM/200 ML PIGGYBACK IV.SIG ONE (22:02)
--- NOTE | 2018-08-31 22:04 | P.CONCC ---
History of Present Illness Service: Critical care Consult date: 08/31/18 Reason for Consult: Acute respiratory failure, severe shock Primary Care Provider: Davy Walters MD Chief Complaint: atrial fib with RVR History of Present Illness: Patient is 83-year-old male with a history of A. fib on Xarelto, cardiomyopathy with ejection fraction 17%, moderate MR, moderate AI, hypertension, hyperlipidemia, ventricular tachycardia history with, ICD, COPD who was admitted to the [facility] service on 08/28/2018 for worsening shortness of breath. He was admitted with a diagnosis of COPD, atrial fibrillation with RVR and cardiology was consulted. I am unable to locate echo report but according to [facility] admit note Echo 10/2017, EF=17%, LVH, biatrial enlargement,, Mod MR, Mod AI, Mod TR, aortic cusp thickening. Patient has chronic A. fib for which he takes Xarelto, metoprolol, and amiodarone. This was continued and patient was also placed on Cardizem infusion for rate control. Plan was for EMILEE guided cardioversion tomorrow Patient was noted to be increasingly short of breath over the day. He received some Ativan around 10 AM today for presumed anxiety. According to bedside RN patient had labored breathing since the beginning of her shift at around 7 and even prior. Patient became increasingly lethargic with worsening hypoxia shortness of breath. Stat ABG showed 7.07/29/58 with oxygen saturation of 78 and base excess -20.5. A Halicat was called at about 8 pm and [place] was [place] [facility] [place] immediately evaluated the patient. Patient was barely responsive tachypneic. Blood pressure was not recordable but pulse was palpable. I ordered stat transfusion of 1 L normal saline bolus, 2 Amps of bicarb to at least partially corrective acidosis prior to intubation and also started Levophed infusion peripherally. After systolic blood pressure was in 60s I proceeded with endotracheal intubation due to hypoxia and lack of airway protection. Patient was intubated and placed on mechanical ventilation. Patient remained in atrial fibrillation RVR, the shock appears to be severe cardiogenic shock worsened by severe acidosis. Levophed was rapidly increased to 40 mcg/min, additional pressors added with Tien-Synephrine and dopamine. I emergently placed a right subclavian central line and also right femoral artery line. Once arterial line is placed and flow Trac monitoring is initiated. I have given digoxin 0.5 mg IV x1 for rate control, start amiodarone bolus and infusion for rate control. Start dobutamine infusion as the patient has an EF of 17%. Duque cultures will be sent a Escamilla catheter will be inserted as the patient is almost anuric. Broad-spectrum antibiotics with Azactam Flagyl and vancomycin. Chest x-ray shows persistent left lower lobe and new right lower lobe infiltrates. This appears to be a combination of severe cardiogenic and septic shock and prognosis is guarded at this time Review of Systems unobtainable due to endotracheal tube, unobtainable due to mental status PMFSH - History History Provided By: Patient - Medical History Medical History: Medical History (Last Reviewed 08/31/18 @ 22:46 by Beka Serrano MD) Afib COPD (chronic obstructive pulmonary disease) Diabetes Glaucoma HLD (hyperlipidemia) HTN (hypertension) Hypothyroid ICD (implantable cardioverter-defibrillator) in place Mitral regurgitation Skin cancer Ventricular tachycardia - Surgical History Surgical History: Surgical History (Last Reviewed 08/31/18 @ 22:46 by Beka Serrano MD) H/O sinus surgery Hx of CABG - Family History Family History: Family History (Last Updated 08/28/18 @ 22:09 by Ashanti Bloom MD, R2) Father Colon cancer - Tobacco History Second Hand Smoke Exposure: No Smoking Status: Former smoker - Alcohol History How Often Do You Have a Drink Containing Alcohol: Never - Substance Use History Substance History: No History of Abuse - Travel History History of Recent Travel: No Recent Travel in the [place] Within the Last 8 Weeks: No Recent Travel Out of the Country Within the Last 8 Weeks: No - Immunization History Tetanus Immunization: Unsure Hx Influenza Vaccine This Season: No Medications and Allergies Active Medications: Active Medications Amiodarone HCl (Cordarone) 200 mg PO BID [facility] Last Admin: 08/31/18 10:05 Dose: 200 mg Bumetanide (Bumex Inj) 1 mg IV.PUSH Q12H [facility] Last Admin: 08/31/18 10:06 Dose: 1 mg Diltiazem HCl 125 mg/ Sodium (Chloride) 125 mls @ 5 mls/hr IV.CONT TITRATE PRN ; Protocol PRN Reason: Per Protocol Last Titration: 08/29/18 13:59 Dose: Infused Sodium Chloride (Ns Inj) 500 mls @ 0 mls/hr IV.SIG BOLUS [facility] Last Infusion: 08/28/18 19:27 Dose: Infused Albumin Human (Flexbumin 25% Inj) 50 mls @ 50 mls/hr IV.SIG Q12H [facility] Last Infusion: 08/31/18 11:14 Dose: Infused Sodium Chloride (Ns Inj) 250 mls @ 50 mls/hr IV.SIG ONCE ONE Stop: 08/31/18 23:59 Last Admin: 08/31/18 19:30 Dose: 50 mls/hr Aztreonam 2 gm/ Sodium (Chloride) 100 mls @ 200 mls/hr IV.SIG Q8H [facility] Metronidazole/Sodium Chloride (Flagyl 500 Mg Inj) 100 mls @ 100 mls/hr IV.SIG Q8H [facility] Vancomycin/Sodium Chloride (Vancomycin Inj) 1 gm in 200 mls @ 200 mls/hr IV.SIG ONCE ONE Stop: 08/31/18 23:01 Latanoprost (Xalatan 0.005% Opth Drops) 1 drop EACH EYE QPM [facility] Last Admin: 08/31/18 17:51 Dose: 1 drop Levothyroxine Sodium (Synthroid) 75 mcg PO DAILY@0600 [facility] Last Admin: 08/31/18 05:32 Dose: 75 mcg Lorazepam (Ativan Inj) 1 mg IV.PUSH Q6H [facility] Last Admin: 08/31/18 15:20 Dose: Not Given Metoprolol Tartrate (Lopressor) 25 mg PO BID [facility] Last Admin: 08/31/18 10:05 Dose: Not Given Potassium Chloride (Kcl) 20 meq PO BID [facility] Last Admin: 08/31/18 09:04 Dose: Not Given Rivaroxaban (Xarelto) 15 mg PO QPM [facility] Last Admin: 08/31/18 17:44 Dose: 15 mg Sodium Chloride (Ns Flush) 2 ml IV.FLUSH BID [facility] Last Admin: 08/31/18 10:07 Dose: 2 ml Sodium Chloride (Ns Flush) 2 ml IV.FLUSH PRN PRN PRN Reason: FLUSH AFTER USING IV ACCESS Allergies Allergy/AdvReac Type Severity Reaction Status Date / Time prednisone Allergy Severe Weight loss Verified 08/28/18 14:33 penicillin G Allergy Intermediate Hives Verified 08/28/18 14:33 Sulfa (Sulfonamide Allergy Intermediate Hives Verified 08/28/18 14:33 Antibiotics) Home Medications Medication Instructions Recorded Confirmed Type fenofibrate 160 mg PO DAILY 07/22/18 08/28/18 History latanoprost 1 drp OPHTHALMIC (EYE) QPM 07/22/18 08/28/18 History levothyroxine [Synthroid] 75 mcg PO DAILY 07/22/18 08/28/18 History pitavastatin calcium [Livalo] 2 mg PO 3XW 07/22/18 08/28/18 History metoprolol tartrate 25 mg PO BID 08/28/18 08/28/18 History rivaroxaban [Xarelto] 15 mg PO QPM 08/28/18 08/28/18 History torsemide 20 mg PO EVERY OTHER DAY 08/28/18 08/28/18 History amiodarone 200 mg PO 08/29/18 History Physical Exam Vital signs: Vital Signs 08/30/18 22:53 08/30/18 23:00 08/31/18 00:00 Temperature 98.1 F Pulse Rate 110 H 102 H Respiratory Rate 22 Blood Pressure 96/75 L Pulse Oximetry 96 96 08/31/18 01:00 08/31/18 02:00 08/31/18 03:00 Temperature Pulse Rate 102 H 92 H 88 Respiratory Rate Blood Pressure Pulse Oximetry 08/31/18 03:57 08/31/18 04:00 08/31/18 05:00 Temperature 98.2 F Pulse Rate 88 92 H 98 H Respiratory Rate 20 Blood Pressure 144/66 H Pulse Oximetry 97 08/31/18 06:00 08/31/18 07:00 08/31/18 08:00 Temperature 98.0 F Pulse Rate 98 H 88 92 H Respiratory Rate 20 Blood Pressure 92/63 L Pulse Oximetry 96 08/31/18 08:43 08/31/18 09:00 08/31/18 10:00 Temperature Pulse Rate 94 H 92 H Respiratory Rate Blood Pressure Pulse Oximetry 95 08/31/18 11:00 08/31/18 12:00 08/31/18 13:00 Temperature Pulse Rate 96 H 96 H 87 Respiratory Rate Blood Pressure Pulse Oximetry 08/31/18 14:00 08/31/18 15:00 08/31/18 16:00 Temperature Pulse Rate 90 90 93 H Respiratory Rate 20 Blood Pressure 105/57 L Pulse Oximetry 08/31/18 17:00 08/31/18 18:00 Temperature Pulse Rate 87 87 Respiratory Rate Blood Pressure Pulse Oximetry Intake & Output 08/31/18 08/31/18 09/01/18 06:59 18:59 06:59 Intake Total 780 / 780 50 / 50 Output Total 650 / 650 Balance 130 / 130 50 / 50 Weight 69 kg Intake: IV 50 / 50 50 / 50 Flexbumin 25% Inj 50 ML @ 50 50 / 50 50 / 50 mls/hr IV.SIG Q12H [facility] Rx#: [id number] Oral 730 / 730 Output: Urine 650 / 650 Other: Date of Last Bowel Movement 08/29/18 # Bowel Movements 0 Narrative: General: Elderly male severe distress profoundly hypotensive imminent cardiopulmonary arrest Cardio: Irregular rate and rhythm, in severe shock. Systolic murmur heard at the apex Pulmonary: Tachypneic agonal breathing, bilateral wheezing. No crackles appreciated on auscultation. GI: Abdomen soft, nontender nondistended Extremities: No cyanosis or edema Neuro: Patient is unresponsive moves extremities to sternal rub only. Unable to assess mental status - Urinary Catheter Management Indwelling Urethral Catheter Cath placed during this visit: yes Reason for continuing: Hourly intake/output Insertion date: 08/31/18 Insertion time: 22:00 Septic Shock Reassessment Septic shock perfusion: reassessment completed Assessment and Plan - Assessment and Plan Plan: NEURO: Toxic metabolic encephalopathy -Patient was unresponsive secondary to severe metabolic encephalopathy -Check CT of the head as the patient is on chronic anticoagulation with Xarelto RESP: Acute hypoxemic respiratory failure Bibasilar pneumonia COPD -Emergently intubated for severe respiratory distress hypoxia and inability to protect airway -PRVC/AC, Ventilator bundle -DuoNeb every 4 hours scheduled and as needed -Broad-spectrum antibiotics as below -CT chest to evaluate for infiltrate CV: Severe cardiogenic shock Severe metabolic acidosis Severe lactic acidosis 15.7 Atrial fibrillation with rapid ventricular response History of CABG Ischemic cardiomyopathy with ejection fraction 17% Moderate MR, moderate AI -Aggressively fluid resuscitated with crystalloids, IV albumin due to severe hypotension -Currently on maximum doses of Levophed, Tien-Synephrine, dopamine -Initial chest Flowtrack monitoring, start dobutamine considering low ejection fraction and cardiogenic shock -Hold home medications p.o. amiodarone, p.o. metoprolol -IV digoxin 0.5 mg x1. Start amiodarone 150 mg bolus and infusion -Lactic acid came back at 15.7, independently predicts extremely poor prognosis -Stress dose steroids GI: -N.p.o., IV famotidine -CT abdomen pelvis stat to rule out abdominal source of sepsis : Acute on chronic kidney disease -Monitor renal function closely. Place Escamilla catheter for strict intake output, hourly -Bicarb infusion for severe metabolic acidosis -Received 4 ampoules of bicarb -Nephrology consulted ID: Septic shock Probable pneumonia -Antibiotics with IV Azactam, Flagyl, azithromycin, single dose of vancomycin -Blood urine and sputum cultures -CT chest abdomen pelvis evaluate for source of sepsis HEME: -Monitor CBC, coags -Continue Xarelto for anticoagulation if CT of the head is negative for bleed ENDO: Hypoglycemia most likely from sepsis Hypothyroidism Mild hyperkalemia Hypocalcemia -Electrolyte replacement per protocol -Hypoglycemia protocol -Replace calcium -Correction of acidosis and breathing treatments should help improve hyperkalemia PROPH: -Bilateral lower extremity SCDs. Xarelto/famotidine LINES: -Right subclavian central line, right femoral arterial line placed 08/31/2018 CC time 105 min excluding procedural time Patient remains very critical with multiorgan failure including acute hypoxemic respiratory failure, metabolic encephalopathy, severe cardiogenic and septic shock, worsening acute on chronic kidney disease. Lactic acid is close to 16 and this independently predicts a very poor prognosis. Chance of survival appears minimal. We are unable to reach family at this time. I have consulted palliative care. Code Status: FULL
[2018-08-31] MEDS ORDERED: Amiodarone Inj 150 MG in Dextrose 5% in Water Inj 97 ML IV.SIG ONE ×2 (22:10)
[2018-08-31] MEDS ORDERED: DOPamine Inj 800 MG in Sodium Chlor 0.9% Inj 500 ML IV.CONT PRN (22:11)
[2018-08-31 22:19] LABS: Baso % (Auto) 0.1 % (0.0-2.0); Eos % (Auto) 0.1 % (0.0-4.0); Hemoglobin 11.9 gm/dL (13.0-17.0); Lymph # (Auto) 0.6 th/mm3 (1.0-4.8); Lymph % (Auto) 3.8 % (9.0-44.0); Mean Corpuscular HGB Conc 31.4 % (32.0-36.0); Mean Corpuscular Hemoglobin 29.9 pg (27.0-34.0); Mean Corpuscular Volume 95.1 fL (80.0-100.0); Mean Platelet Volume 9.2 fL (7.0-11.0); Mono # (Auto) 1.5 th/mm3 (0.0-0.9); Neut # (Auto) 14.2 th/mm3 (1.8-7.7); Platelet Count 263 th/mm3 (150-450); Red Cell Distribution Width 14.8 % (11.6-17.2); White Blood Count 16.4 th/mm3 (4.0-11.0)
[2018-08-31 22:42] LABS: Bilirubin,Urine Negative (Negative); Color,Urine Yellow (Yellw/Straw); Glucose,Urine (UA) Negative (Negative); Hyaline Casts,Urine 1 /lpf (0-3); Leukocyte Esterase,Urine Negative (Negative); Mucus,Urine Few /lpf (Occasional); Nitrite,Urine Negative (Negative); Specific Gravity,Urine 1.011 (1.002-1.035); Squamous Epithelial Cell,Urine <1 /hpf (0-5)
[2018-08-31 22:43] LABS: Clarity,Urine Hazy (Clear)
[2018-08-31 22:56] LABS: Alanine Aminotransferase 4298 U/L (12-78); Albumin 2.7 g/dL (3.4-5.0); Alkaline Phosphatase 57 U/L (45-117); Anion Gap 26 meq/L (5-15); Aspartate Aminotransferase 10361 U/L (15-37); Blood Urea Nitrogen 50 mg/dL (7-18); Calcium 7.7 mg/dL (8.5-10.1); Carbon Dioxide 15.1 meq/L (21.0-32.0); Chloride 103 meq/L (98-107); Glomerular Filtration Rate 18 mL/min (>89); Glucose,Random 217 mg/dL (74-106); Potassium 5.5 meq/L (3.5-5.1); Sodium 144 meq/L (136-145); Total Protein 5.9 g/dL (6.4-8.2)
[2018-08-31] MEDS ORDERED: Vancomycin Inj 1,000 MG in Sodium Chlor 0.9% Inj 250 ML IV.SIG ONE (23:00)
[2018-08-31] MEDS ORDERED: Calcium Chloride Inj 1 GM in Dextrose 5% in Water Inj 100 ML IV.SIG ONE ×2 (23:06)
[2018-08-31 23:14] LABS: Platelet Estimate Normal (Normal); Platelet Morphology Normal (Normal)
[2018-08-31] MEDS ORDERED: Sod Chloride 0.9% Inj 1,000 ML IV.SIG SCH (23:15)
[2018-09-01] MEDS: Sodium Bicarbonate 8.4% Inj 150 MEQ in Water for Inj, Sterile 850 ML IV.CONT SCH ×4 (00:28→20:34)
[2018-09-01] MEDS: Amiodarone 200 MG Tablet PO SCH (00:32)
[2018-09-01] MEDS: Metoprolol Tartrate 25 MG Tablet PO SCH (00:33)
[2018-09-01] MEDS: Phenylephrine Inj 80 MG in Sodium Chlor 0.9% Inj 492 ML IV.CONT PRN ×4 (00:34→09:01)
[2018-09-01] MEDS: Potassium Chloride 10 MEQ ER Capsule PO SCH ×2 (00:37→09:02)
[2018-09-01 01:47] LABS: Prothrombin Time 73.6 sec (9.8-11.6)
[2018-09-01 01:51] LABS: INR 7.4 Ratio
[2018-09-01] MEDS: Oral Hygiene Kit OROPHARYNG SCH ×6 (01:54→23:17)
--- NOTE | 2018-09-01 02:13 | CT ---
EXAM DATE: 09/01/2018 2:05 AM EDT AGE/SEX: 83 years / Male INDICATIONS: Altered mental status. Nonresponsive. CLINICAL DATA: This is the patient's initial encounter. Patient reports that signs and symptoms have been present for 2 days and indicates a pain score of Nonresponsive. MEDICAL/SURGICAL HISTORY: Cardiovascular disease. Hypertension. Chronic obstructive pulmonary dis ease. Diabetes Pacemaker. RADIATION DOSE: 66.34 CTDI (mGy) COMPARISON: No prior exams available for comparison. TECHNIQUE: CT of the head without contrast. Using automated exposure control and adjustment of the mA and/or kV according to patient size, radiation dose was kept as low as reasonably achievable to ob tain optimal diagnostic quality images. DICOM format image data is available electronically for revi ew and comparison. FINDINGS: Cerebrum: The ventricles are normal for age. No evidence of midline shift, mass lesion, hemorrhage or acute infarction. No extraaxial fluid collections are seen. There is atrophy and chronic appearin g low-attenuation in the periventricular white matter. Posterior Fossa: The cerebellum and brainstem are intact. The 4th ventricle is midline. The cerebe llopontine angle is unremarkable. Extracranial: The visualized portion of the orbits is intact. Skull: The calvaria is intact. No evidence of skull fracture. CONCLUSION: 1. No acute intracranial abnormality demonstrated. 2. Atrophy and chronic periventricular white matter changes. . Electronically signed by: Zach Schmitz MD 09/01/2018 2:12 AM EDT
--- NOTE | 2018-09-01 02:19 | CT ---
EXAM DATE: 09/01/2018 2:09 AM EDT AGE/SEX: 83 years / Male INDICATIONS: Spesis CLINICAL DATA: This is the patient's initial encounter. Patient reports that signs and symptoms have been present for 1 day and indicates a pain score of Nonresponsive. MEDICAL/SURGICAL HISTORY: Cardiovascular disease. Hypertension. Chronic obstructive pulmonary disease. Diabetes Pacemaker. RADIATION DOSE: 5.71 CTDI (mGy) ; Combined studies COMPARISON: No prior exams available for comparison. TECHNIQUE: Multiple contiguous axial images were obtained through the abdomen. Images were obtained using multiple row detector helical technique. Using automated exposure control and adjustment of the mA and/or kV according to patient size, radiation dose was kept as low as reasonably achievable to o btain optimal diagnostic quality images. DICOM format image data is available electronically for rev iew and comparison. FINDINGS: Noncontrast appearance of the liver, spleen, pancreas, adrenal glands and kidneys is within normal li mits. There is mild mesenteric and retroperitoneal edema. Also mild body wall edema. Nothing organized or d rainable. There is diverticulosis of the sigmoid colon. No diverticulitis or other acute inflammatory changes. Urinary bladder is decompressed with a Escamilla catheter. There is atherosclerosis of the abdominal aorta and branch vessels. No aneurysm. CONCLUSION: 1. Trace ascites, nonspecific. Also mild body wall edema. No organized or drainable fluid. 2. Diverticulosis of the sigmoid colon. No diverticulitis or other acute inflammatory changes. 3. Atherosclerosis of the aorta. Electronically signed by: Zach Schmitz MD 09/01/2018 2:17 AM EDT
--- NOTE | 2018-09-01 02:23 | CT ---
EXAM DATE: 09/01/2018 2:09 AM EDT AGE/SEX: 83 years / Male INDICATIONS: Spesis CLINICAL DATA: This is the patient's initial encounter. Patient reports that signs and symptoms have been present for 1 day and indicates a pain score of Nonresponsive. MEDICAL/SURGICAL HISTORY: Cardiovascular disease. Hypertension. Chronic obstructive pulmonary dis ease. Diabetes Pacemaker. RADIATION DOSE: 5.71 CTDI (mGy) ; Combined studies COMPARISON: No prior exams available for comparison. TECHNIQUE: Multiple contiguous axial images were obtained through the chest without contrast. Image s were obtained in suspended respiration using multiple row detector helical technique. Using automa caroline exposure control and adjustment of the mA and/or kV according to patient size, radiation dose was kept as low as reasonably achievable to obtain optimal diagnostic quality images. DICOM format imag e data is available electronically for review and comparison. FINDINGS: There are small bilateral pleural effusions. Some the left pleural effusion is loculated in the major fissure. There is dependent/compressive atelectasis of both lower lobes. Patchy infiltrate seen of the bilateral mid and upper lung zones, most severe in the right upper lobe . No lymphadenopathy seen. Panchamber enlargement of the heart. Patient has had previous median sternotomy and CABG. The cardiac pacer/defibrillator is present. CONCLUSION: 1. Bilateral pneumonia, especially right upper lobe. 2. Small bilateral pleural effusions; dependent/compressive atelectasis of both lower lobes. 3. Panchamber enlargement of the heart. Electronically signed by: Zach Schmitz MD 09/01/2018 2:21 AM EDT
[2018-09-01] MEDS: Azithromycin Inj 500 MG in Sodium Chlor 0.9% Inj 250 ML IV.SIG SCH ×2 (02:36→23:42)
[2018-09-01] MEDS ORDERED: Vancomycin Consult Pharmacy OTHER PRN (03:00)
[2018-09-01] MEDS: Aztreonam Inj 2 GM in Sodium Chloride 0.9% Inj 100 ML IV.SIG SCH ×4 (03:28→23:05)
[2018-09-01] MEDS ORDERED: Chlorhexidine Gluconate 2% 1 Pack (2 Cloths) TOPICAL PRN (04:00)
[2018-09-01 04:34] LABS: Baso % (Auto) 0.1 % (0.0-2.0); Eos % (Auto) 0.2 % (0.0-4.0); Hematocrit 37.9 % (39.0-51.0); Hemoglobin 11.8 gm/dL (13.0-17.0); Lymph # (Auto) 0.9 th/mm3 (1.0-4.8); Lymph % (Auto) 5.2 % (9.0-44.0); Mean Corpuscular HGB Conc 31.2 % (32.0-36.0); Mean Corpuscular Hemoglobin 30.3 pg (27.0-34.0); Mean Corpuscular Volume 97.1 fL (80.0-100.0); Mean Platelet Volume 9.4 fL (7.0-11.0); Mono # (Auto) 1.3 th/mm3 (0.0-0.9); Mono % (Auto) 7.5 % (0.0-8.0); Neut # (Auto) 15.6 th/mm3 (1.8-7.7); Platelet Count 248 th/mm3 (150-450); Red Cell Distribution Width 15.2 % (11.6-17.2)
[2018-09-01 04:42] LABS: Prothrombin Time 89.8 sec (9.8-11.6)
[2018-09-01] MEDS: Norepinephrine Inj 4 MG in Sodium Chlor 0.9% Inj 246 ML IV.SIG PRN ×4 (04:45→12:58)
--- NOTE | 2018-09-01 04:50 | XR ---
EXAM DATE: 09/01/2018 4:39 AM EDT AGE/SEX: 83 years / Male INDICATIONS: Short of breath. CLINICAL DATA: This is the patient's subsequent encounter. Patient reports that signs and symptoms h ave been present for 1 month and indicates a pain score of 0/10. MEDICAL/SURGICAL HISTORY: Hypertension. Chronic obstructive pulmonary disease. Congestive hea rt failure. CABG. Pacemaker. COMPARISON: [facility] [place] 1V SINGLE AP, 08/31/2018. . FINDINGS: Mild bibasilar airspace opacities persist with a small left pleural effusion, not significantly loera ed. No pneumothorax. Mild cardiomegaly is stable. Cardiac pacer/defibrillator again noted. Endotracheal tube tip is approximately 1.5 cm above the judie. There is a right subclavian central v enous catheter with tip in the superior vena cava. CONCLUSION: No significant change. Electronically signed by: Zach Schmitz MD 09/01/2018 4:49 AM EDT
[2018-09-01] MEDS: Chlorhexidine Gluconate 2% 1 Pack (2 Cloths) TOPICAL SCH ×2 (04:55→05:19)
[2018-09-01 05:08] LABS: Albumin 2.7 g/dL (3.4-5.0); Calcium 7.2 mg/dL (8.5-10.1); Carbon Dioxide 13.5 meq/L (21.0-32.0); Potassium 4.8 meq/L (3.5-5.1)
[2018-09-01 05:17] LABS: Total Protein 5.6 g/dL (6.4-8.2)
[2018-09-01 05:43] LABS: Platelet Estimate Normal (Normal); Platelet Morphology Normal (Normal)
[2018-09-01 05:44] LABS: Acanthocytes Occ; Toxic Granulation 1+; Toxic Vacuolation Present
[2018-09-01] MEDS: Hydrocortisone Sod Succinate 100 MG Vial IV.PUSH SCH ×3 (05:44→23:05)
[2018-09-01] MEDS: Levothyroxine 75 MCG Tablet PO SCH (06:48)
[2018-09-01] MEDS: Morphine Inj 4 MG/ML Vial IV.PUSH PRN (08:59)
[2018-09-01] MEDS ORDERED: Famotidine PF Inj 20 MG/2 ML Vial IV.PUSH SCH (09:00)
[2018-09-01] MEDS: Albumin Human 25% Inj 50 ML IV.SIG SCH ×2 (09:01→20:18)
[2018-09-01] MEDS: Chlorhexidine 0.12% Oral Kit 15 ML UDC OROPHARYNG SCH ×2 (09:01→19:58)
[2018-09-01 09:24] LABS: ABG Base Excess -13.8 mmol/L (-2-2); ABG PCO2 27 mmHg (38-42); ABG PO2 144 mmHG (61-120)
[2018-09-01 09:58] LABS: Activated Partial Thrombo Time 44.1 sec (24.3-30.1)
[2018-09-01 10:18] LABS: INR 5.6 Ratio; Prothrombin Time 55.9 sec (9.8-11.6)
--- NOTE | 2018-09-01 10:35 | P.PNFP ---
Subjective Interval history: Patient was seen at the bedside in the ICU this morning. Overnight patient became increasingly lethargic with worsening hypoxia and shortness of breath throughout the afternoon and evening and was ultimately intubated with mechanical ventilation and a central line was placed for pressors. This morning patient intubated but awake and alert and trying to communicate but was not able to make out what he was trying to say. Patient was able to shake his head no to feeling any pain. Patient's case was discussed at bedside in detail with the motor pool clerk Dr. Schilling. <Abdiaziz Fountain O - 09/01/18 17:48> Results - Labs Result diagrams: 09/02/18 07:30 09/02/18 07:30 <Tiago Le L - 09/02/18 15:49> Abnormal lab results 09/01/18 09/01/18 09/01/18 Range/Units 15:51 17:04 17:20 RBC (4.50-5.90) mil/mm3 Hgb (13.0-17.0) gm/dL Hct (39.0-51.0) % Neut % (Auto) (16.0-70.0) % Lymph % (Auto) (9.0-44.0) % Neut # (Auto) (1.8-7.7) th/mm3 Lymph # (Auto) (1.0-4.8) th/mm3 Seg Neuts % (Manual) (16-70) % Lymphocytes % (Manual) (9-44) % Abs Neuts (Manual) (1.8-7.7) th/mm3 Nucleated RBCs/100 WBC (0-0) /100 WBC Toxic Granulation (None) Toxic Vacuolation (None) PT (9.8-11.6) sec INR Ratio ABG pH 7.55 H* (7.380-7.420) ABG pCO2 22 L* (38-42) mmHg ABG pO2 173 H (61-120) mmHG ABG HCO3 19 L (22-26) mmol/L ABG Base Excess -3.0 L (-2-2) mmol/L Hemoglobin 10.1 L (12.0-16.0) G/DL Chloride (98-107) meq/L Anion Gap (5-15) meq/L BUN (7-18) mg/dL Creatinine (0.60-1.30) mg/dL Estimated GFR (>89) mL/min POC Glucose 304 H (68-110) mg/dl Random Glucose (74-106) mg/dL Lactic Acid 6.8 H* (0.4-2.0) mmol/L Calcium (8.5-10.1) mg/dL Prot Corrected Calcium (8.5-10.1) mg/dL Total Bilirubin (0.2-1.0) mg/dL AST (15-37) U/L ALT (12-78) U/L Troponin I (0.02-0.05) ng/mL Total Protein (6.4-8.2) g/dL Albumin (3.4-5.0) g/dL 09/01/18 09/01/18 09/01/18 Range/Units 17:20 17:20 17:52 RBC (4.50-5.90) mil/mm3 Hgb (13.0-17.0) gm/dL Hct (39.0-51.0) % Neut % (Auto) (16.0-70.0) % Lymph % (Auto) (9.0-44.0) % Neut # (Auto) (1.8-7.7) th/mm3 Lymph # (Auto) (1.0-4.8) th/mm3 Seg Neuts % (Manual) (16-70) % Lymphocytes % (Manual) (9-44) % Abs Neuts (Manual) (1.8-7.7) th/mm3 Nucleated RBCs/100 WBC (0-0) /100 WBC Toxic Granulation (None) Toxic Vacuolation (None) PT 86.7 H D (9.8-11.6) sec INR 8.7 H* Ratio ABG pH (7.380-7.420) ABG pCO2 (38-42) mmHg ABG pO2 (61-120) mmHG ABG HCO3 (22-26) mmol/L ABG Base Excess (-2-2) mmol/L Hemoglobin (12.0-16.0) G/DL Chloride (98-107) meq/L Anion Gap 18 H (5-15) meq/L BUN 51 H (7-18) mg/dL Creatinine 3.28 H (0.60-1.30) mg/dL Estimated GFR 18 L (>89) mL/min POC Glucose 265 H (68-110) mg/dl Random Glucose 272 H (74-106) mg/dL Lactic Acid (0.4-2.0) mmol/L Calcium 6.8 L* (8.5-10.1) mg/dL Prot Corrected Calcium 7.8 L (8.5-10.1) mg/dL Total Bilirubin 2.7 H (0.2-1.0) mg/dL AST 95513 H (15-37) U/L ALT 5779 H (12-78) U/L Troponin I 1.62 H* (0.02-0.05) ng/mL Total Protein 5.2 L (6.4-8.2) g/dL Albumin 2.7 L (3.4-5.0) g/dL 09/01/18 09/02/18 09/02/18 Range/Units 23:28 06:23 07:30 RBC (4.50-5.90) mil/mm3 Hgb (13.0-17.0) gm/dL Hct (39.0-51.0) % Neut % (Auto) (16.0-70.0) % Lymph % (Auto) (9.0-44.0) % Neut # (Auto) (1.8-7.7) th/mm3 Lymph # (Auto) (1.0-4.8) th/mm3 Seg Neuts % (Manual) (16-70) % Lymphocytes % (Manual) (9-44) % Abs Neuts (Manual) (1.8-7.7) th/mm3 Nucleated RBCs/100 WBC (0-0) /100 WBC Toxic Granulation (None) Toxic Vacuolation (None) PT (9.8-11.6) sec INR Ratio ABG pH (7.380-7.420) ABG pCO2 (38-42) mmHg ABG pO2 (61-120) mmHG ABG HCO3 (22-26) mmol/L ABG Base Excess (-2-2) mmol/L Hemoglobin (12.0-16.0) G/DL Chloride (98-107) meq/L Anion Gap (5-15) meq/L BUN (7-18) mg/dL Creatinine (0.60-1.30) mg/dL Estimated GFR (>89) mL/min POC Glucose 234 H 200 H (68-110) mg/dl Random Glucose (74-106) mg/dL Lactic Acid 4.5 H* (0.4-2.0) mmol/L Calcium (8.5-10.1) mg/dL Prot Corrected Calcium (8.5-10.1) mg/dL Total Bilirubin (0.2-1.0) mg/dL AST (15-37) U/L ALT (12-78) U/L Troponin I (0.02-0.05) ng/mL Total Protein (6.4-8.2) g/dL Albumin (3.4-5.0) g/dL 09/02/18 09/02/18 09/02/18 Range/Units 07:30 07:30 07:30 RBC 3.45 L (4.50-5.90) mil/mm3 Hgb 10.6 L (13.0-17.0) gm/dL Hct 31.9 L (39.0-51.0) % Neut % (Auto) 90.1 H (16.0-70.0) % Lymph % (Auto) 6.3 L (9.0-44.0) % Neut # (Auto) 8.4 H (1.8-7.7) th/mm3 Lymph # (Auto) 0.6 L (1.0-4.8) th/mm3 Seg Neuts % (Manual) 86 H (16-70) % Lymphocytes % (Manual) 6 L (9-44) % Abs Neuts (Manual) 8.6 H (1.8-7.7) th/mm3 Nucleated RBCs/100 WBC 1 H (0-0) /100 WBC Toxic Granulation 1+ H (None) Toxic Vacuolation Present H (None) PT 89.3 H (9.8-11.6) sec INR 9.0 H* Ratio ABG pH (7.380-7.420) ABG pCO2 (38-42) mmHg ABG pO2 (61-120) mmHG ABG HCO3 (22-26) mmol/L ABG Base Excess (-2-2) mmol/L Hemoglobin (12.0-16.0) G/DL Chloride 96 L (98-107) meq/L Anion Gap (5-15) meq/L BUN 65 H (7-18) mg/dL Creatinine 3.52 H (0.60-1.30) mg/dL Estimated GFR 17 L (>89) mL/min POC Glucose (68-110) mg/dl Random Glucose 193 H (74-106) mg/dL Lactic Acid (0.4-2.0) mmol/L Calcium 7.0 L* (8.5-10.1) mg/dL Prot Corrected Calcium 8.0 L (8.5-10.1) mg/dL Total Bilirubin 3.0 H (0.2-1.0) mg/dL AST 8258 H (15-37) U/L ALT 5179 H (12-78) U/L Troponin I (0.02-0.05) ng/mL Total Protein 5.2 L (6.4-8.2) g/dL Albumin 2.7 L (3.4-5.0) g/dL 09/02/18 09/02/18 Range/Units 10:00 11:22 RBC (4.50-5.90) mil/mm3 Hgb (13.0-17.0) gm/dL Hct (39.0-51.0) % Neut % (Auto) (16.0-70.0) % Lymph % (Auto) (9.0-44.0) % Neut # (Auto) (1.8-7.7) th/mm3 Lymph # (Auto) (1.0-4.8) th/mm3 Seg Neuts % (Manual) (16-70) % Lymphocytes % (Manual) (9-44) % Abs Neuts (Manual) (1.8-7.7) th/mm3 Nucleated RBCs/100 WBC (0-0) /100 WBC Toxic Granulation (None) Toxic Vacuolation (None) PT (9.8-11.6) sec INR Ratio ABG pH 7.47 H (7.380-7.420) ABG pCO2 32 L (38-42) mmHg ABG pO2 139 H (61-120) mmHG ABG HCO3 (22-26) mmol/L ABG Base Excess (-2-2) mmol/L Hemoglobin 10.4 L (12.0-16.0) G/DL Chloride (98-107) meq/L Anion Gap (5-15) meq/L BUN (7-18) mg/dL Creatinine (0.60-1.30) mg/dL Estimated GFR (>89) mL/min POC Glucose 149 H (68-110) mg/dl Random Glucose (74-106) mg/dL Lactic Acid (0.4-2.0) mmol/L Calcium (8.5-10.1) mg/dL Prot Corrected Calcium (8.5-10.1) mg/dL Total Bilirubin (0.2-1.0) mg/dL AST (15-37) U/L ALT (12-78) U/L Troponin I (0.02-0.05) ng/mL Total Protein (6.4-8.2) g/dL Albumin (3.4-5.0) g/dL Short CBC 09/02/18 Range/Units 07:30 WBC 9.3 (4.0-11.0) th/mm3 Hgb 10.6 L (13.0-17.0) gm/dL Hct 31.9 L (39.0-51.0) % Plt Count 172 D (150-450) th/mm3 BMP 09/01/18 09/02/18 17:20 07:30 Sodium 137 137 Potassium 4.1 3.9 Chloride 98 96 L Carbon Dioxide 21.1 28.5 BUN 51 H 65 H Creatinine 3.28 H 3.52 H Calcium 6.8 L* 7.0 L* Cardiac Enzymes 09/01/18 Range/Units 17:20 Troponin I 1.62 H* (0.02-0.05) ng/mL Liver Function 09/01/18 09/02/18 Range/Units 17:20 07:30 Total Bilirubin 2.7 H 3.0 H (0.2-1.0) mg/dL AST 86561 H 8258 H (15-37) U/L ALT 5779 H 5179 H (12-78) U/L Alkaline Phosphatase 73 78 (45-117) U/L Albumin 2.7 L 2.7 L (3.4-5.0) g/dL <YoungTiago L - 09/02/18 15:49> Abnormal lab results 08/31/18 08/31/18 08/31/18 Range/Units 20:31 20:55 21:06 WBC (4.0-11.0) th/mm3 RBC (4.50-5.90) mil/mm3 Hgb (13.0-17.0) gm/dL Hct (39.0-51.0) % MCHC (32.0-36.0) % Neut % (Auto) (16.0-70.0) % Lymph % (Auto) (9.0-44.0) % [place] % (Auto) (0.0-8.0) % Neut # (Auto) (1.8-7.7) th/mm3 Lymph # (Auto) (1.0-4.8) th/mm3 [place] # (Auto) (0.0-0.9) th/mm3 Toxic Granulation (None) Toxic Vacuolation (None) Acanthocytes (Spur) (None) PT (9.8-11.6) sec INR Ratio APTT (24.3-30.1) sec O2 Saturation 78 L* (90-100) % ABG pH 7.09 L* (7.380-7.420) ABG pCO2 26 L (38-42) mmHg ABG pO2 58 L* (61-120) mmHG ABG HCO3 7 L* (22-26) mmol/L ABG Base Excess -20.5 L (-2-2) mmol/L Hemoglobin (12.0-16.0) G/DL Potassium (3.5-5.1) meq/L Carbon Dioxide (21.0-32.0) meq/L Anion Gap (5-15) meq/L BUN (7-18) mg/dL Creatinine (0.60-1.30) mg/dL Estimated GFR (>89) mL/min POC Glucose 52 L 194 H (68-110) mg/dl Random Glucose (74-106) mg/dL Lactic Acid (0.4-2.0) mmol/L Calcium (8.5-10.1) mg/dL Prot Corrected Calcium (8.5-10.1) mg/dL Total Bilirubin (0.2-1.0) mg/dL AST (15-37) U/L ALT (12-78) U/L Troponin I (0.02-0.05) ng/mL Total Protein (6.4-8.2) g/dL Albumin (3.4-5.0) g/dL Urine Clarity (Clear) Urine Occult Blood (Negative) Urine Urobilinogen (Less than 2) mg/dL Urine Mucus (Occasional) /lpf 08/31/18 08/31/18 08/31/18 Range/Units 21:45 21:45 21:45 WBC 16.4 H (4.0-11.0) th/mm3 RBC 4.00 L (4.50-5.90) mil/mm3 Hgb 11.9 L D (13.0-17.0) gm/dL Hct 38.0 L (39.0-51.0) % MCHC 31.4 L (32.0-36.0) % Neut % (Auto) 87.0 H (16.0-70.0) % Lymph % (Auto) 3.8 L (9.0-44.0) % [place] % (Auto) 9.0 H (0.0-8.0) % Neut # (Auto) 14.2 H (1.8-7.7) th/mm3 Lymph # (Auto) 0.6 L (1.0-4.8) th/mm3 [place] # (Auto) 1.5 H (0.0-0.9) th/mm3 Toxic Granulation (None) Toxic Vacuolation (None) Acanthocytes (Spur) (None) PT (9.8-11.6) sec INR Ratio APTT (24.3-30.1) sec O2 Saturation (90-100) % ABG pH (7.380-7.420) ABG pCO2 (38-42) mmHg ABG pO2 (61-120) mmHG ABG HCO3 (22-26) mmol/L ABG Base Excess (-2-2) mmol/L Hemoglobin (12.0-16.0) G/DL Potassium 5.5 H (3.5-5.1) meq/L Carbon Dioxide 15.1 L (21.0-32.0) meq/L Anion Gap 26 H (5-15) meq/L BUN 50 H (7-18) mg/dL Creatinine 3.26 H (0.60-1.30) mg/dL Estimated GFR 18 L (>89) mL/min POC Glucose (68-110) mg/dl Random Glucose 217 H (74-106) mg/dL Lactic Acid 15.7 H* (0.4-2.0) mmol/L Calcium 7.7 L D (8.5-10.1) mg/dL Prot Corrected Calcium (8.5-10.1) mg/dL Total Bilirubin 2.6 H (0.2-1.0) mg/dL AST 41703 H (15-37) U/L ALT 4298 H (12-78) U/L Troponin I (0.02-0.05) ng/mL Total Protein 5.9 L D (6.4-8.2) g/dL Albumin 2.7 L D (3.4-5.0) g/dL Urine Clarity (Clear) Urine Occult Blood (Negative) Urine Urobilinogen (Less than 2) mg/dL Urine Mucus (Occasional) /lpf 08/31/18 08/31/18 08/31/18 Range/Units 21:45 21:45 23:01 WBC (4.0-11.0) th/mm3 RBC (4.50-5.90) mil/mm3 Hgb (13.0-17.0) gm/dL Hct (39.0-51.0) % MCHC (32.0-36.0) % Neut % (Auto) (16.0-70.0) % Lymph % (Auto) (9.0-44.0) % [place] % (Auto) (0.0-8.0) % Neut # (Auto) (1.8-7.7) th/mm3 Lymph # (Auto) (1.0-4.8) th/mm3 [place] # (Auto) (0.0-0.9) th/mm3 Toxic Granulation (None) Toxic Vacuolation (None) Acanthocytes (Spur) (None) PT (9.8-11.6) sec INR Ratio APTT (24.3-30.1) sec O2 Saturation (90-100) % ABG pH (7.380-7.420) ABG pCO2 (38-42) mmHg ABG pO2 (61-120) mmHG ABG HCO3 (22-26) mmol/L ABG Base Excess (-2-2) mmol/L Hemoglobin (12.0-16.0) G/DL Potassium (3.5-5.1) meq/L Carbon Dioxide (21.0-32.0) meq/L Anion Gap (5-15) meq/L BUN (7-18) mg/dL Creatinine (0.60-1.30) mg/dL Estimated GFR (>89) mL/min POC Glucose 191 H (68-110) mg/dl Random Glucose (74-106) mg/dL Lactic Acid (0.4-2.0) mmol/L Calcium (8.5-10.1) mg/dL Prot Corrected Calcium (8.5-10.1) mg/dL Total Bilirubin (0.2-1.0) mg/dL AST (15-37) U/L ALT (12-78) U/L Troponin I 0.12 H (0.02-0.05) ng/mL Total Protein (6.4-8.2) g/dL Albumin (3.4-5.0) g/dL Urine Clarity Hazy H (Clear) Urine Occult Blood Moderate H (Negative) Urine Urobilinogen 2.0 H (Less than 2) mg/dL Urine Mucus Few H (Occasional) /lpf 09/01/18 09/01/18 09/01/18 Range/Units 00:15 01:00 02:25 WBC (4.0-11.0) th/mm3 RBC (4.50-5.90) mil/mm3 Hgb (13.0-17.0) gm/dL Hct (39.0-51.0) % MCHC (32.0-36.0) % Neut % (Auto) (16.0-70.0) % Lymph % (Auto) (9.0-44.0) % [place] % (Auto) (0.0-8.0) % Neut # (Auto) (1.8-7.7) th/mm3 Lymph # (Auto) (1.0-4.8) th/mm3 [place] # (Auto) (0.0-0.9) th/mm3 Toxic Granulation (None) Toxic Vacuolation (None) Acanthocytes (Spur) (None) PT 73.6 H D (9.8-11.6) sec INR 7.4 H* Ratio APTT (24.3-30.1) sec O2 Saturation (90-100) % ABG pH (7.380-7.420) ABG pCO2 (38-42) mmHg ABG pO2 (61-120) mmHG ABG HCO3 (22-26) mmol/L ABG Base Excess (-2-2) mmol/L Hemoglobin (12.0-16.0) G/DL Potassium (3.5-5.1) meq/L Carbon Dioxide (21.0-32.0) meq/L Anion Gap (5-15) meq/L BUN (7-18) mg/dL Creatinine (0.60-1.30) mg/dL Estimated GFR (>89) mL/min POC Glucose (68-110) mg/dl Random Glucose (74-106) mg/dL Lactic Acid 14.7 H* 14.1 H* (0.4-2.0) mmol/L Calcium (8.5-10.1) mg/dL Prot Corrected Calcium (8.5-10.1) mg/dL Total Bilirubin (0.2-1.0) mg/dL AST (15-37) U/L ALT (12-78) U/L Troponin I (0.02-0.05) ng/mL Total Protein (6.4-8.2) g/dL Albumin (3.4-5.0) g/dL Urine Clarity (Clear) Urine Occult Blood (Negative) Urine Urobilinogen (Less than 2) mg/dL Urine Mucus (Occasional) /lpf 09/01/18 09/01/18 09/01/18 Range/Units 04:15 04:15 04:15 WBC 18.0 H (4.0-11.0) th/mm3 RBC 3.90 L (4.50-5.90) mil/mm3 Hgb 11.8 L (13.0-17.0) gm/dL Hct 37.9 L (39.0-51.0) % MCHC 31.2 L (32.0-36.0) % Neut % (Auto) 87.0 H (16.0-70.0) % Lymph % (Auto) 5.2 L (9.0-44.0) % [place] % (Auto) (0.0-8.0) % Neut # (Auto) 15.6 H (1.8-7.7) th/mm3 Lymph # (Auto) 0.9 L (1.0-4.8) th/mm3 [place] # (Auto) 1.3 H (0.0-0.9) th/mm3 Toxic Granulation 1+ H (None) Toxic Vacuolation Present H (None) Acanthocytes (Spur) Occ H (None) PT 89.8 H D (9.8-11.6) sec INR 9.0 H* Ratio APTT (24.3-30.1) sec O2 Saturation (90-100) % ABG pH (7.380-7.420) ABG pCO2 (38-42) mmHg ABG pO2 (61-120) mmHG ABG HCO3 (22-26) mmol/L ABG Base Excess (-2-2) mmol/L Hemoglobin (12.0-16.0) G/DL Potassium (3.5-5.1) meq/L Carbon Dioxide 13.5 L (21.0-32.0) meq/L Anion Gap 24 H (5-15) meq/L BUN 49 H (7-18) mg/dL Creatinine 3.14 H (0.60-1.30) mg/dL Estimated GFR 19 L (>89) mL/min POC Glucose (68-110) mg/dl Random Glucose 338 H D (74-106) mg/dL Lactic Acid (0.4-2.0) mmol/L Calcium 7.2 L* (8.5-10.1) mg/dL Prot Corrected Calcium 8.0 L (8.5-10.1) mg/dL Total Bilirubin 2.8 H (0.2-1.0) mg/dL AST 43109 H (15-37) U/L ALT 5706 H (12-78) U/L Troponin I (0.02-0.05) ng/mL Total Protein 5.6 L (6.4-8.2) g/dL Albumin 2.7 L (3.4-5.0) g/dL Urine Clarity (Clear) Urine Occult Blood (Negative) Urine Urobilinogen (Less than 2) mg/dL Urine Mucus (Occasional) /lpf 09/01/18 09/01/18 09/01/18 Range/Units 08:08 09:13 09:28 WBC (4.0-11.0) th/mm3 RBC (4.50-5.90) mil/mm3 Hgb (13.0-17.0) gm/dL Hct (39.0-51.0) % MCHC (32.0-36.0) % Neut % (Auto) (16.0-70.0) % Lymph % (Auto) (9.0-44.0) % [place] % (Auto) (0.0-8.0) % Neut # (Auto) (1.8-7.7) th/mm3 Lymph # (Auto) (1.0-4.8) th/mm3 [place] # (Auto) (0.0-0.9) th/mm3 Toxic Granulation (None) Toxic Vacuolation (None) Acanthocytes (Spur) (None) PT (9.8-11.6) sec INR Ratio APTT 44.1 H (24.3-30.1) sec O2 Saturation (90-100) % ABG pH 7.26 L* (7.380-7.420) ABG pCO2 27 L (38-42) mmHg ABG pO2 144 H (61-120) mmHG ABG HCO3 12 L* (22-26) mmol/L ABG Base Excess -13.8 L (-2-2) mmol/L Hemoglobin 11.6 L (12.0-16.0) G/DL Potassium (3.5-5.1) meq/L Carbon Dioxide (21.0-32.0) meq/L Anion Gap (5-15) meq/L BUN (7-18) mg/dL Creatinine (0.60-1.30) mg/dL Estimated GFR (>89) mL/min POC Glucose 303 H (68-110) mg/dl Random Glucose (74-106) mg/dL Lactic Acid (0.4-2.0) mmol/L Calcium (8.5-10.1) mg/dL Prot Corrected Calcium (8.5-10.1) mg/dL Total Bilirubin (0.2-1.0) mg/dL AST (15-37) U/L ALT (12-78) U/L Troponin I (0.02-0.05) ng/mL Total Protein (6.4-8.2) g/dL Albumin (3.4-5.0) g/dL Urine Clarity (Clear) Urine Occult Blood (Negative) Urine Urobilinogen (Less than 2) mg/dL Urine Mucus (Occasional) /lpf 09/01/18 09/01/18 Range/Units 09:28 09:28 WBC (4.0-11.0) th/mm3 RBC (4.50-5.90) mil/mm3 Hgb (13.0-17.0) gm/dL Hct (39.0-51.0) % MCHC (32.0-36.0) % Neut % (Auto) (16.0-70.0) % Lymph % (Auto) (9.0-44.0) % [place] % (Auto) (0.0-8.0) % Neut # (Auto) (1.8-7.7) th/mm3 Lymph # (Auto) (1.0-4.8) th/mm3 [place] # (Auto) (0.0-0.9) th/mm3 Toxic Granulation (None) Toxic Vacuolation (None) Acanthocytes (Spur) (None) PT 55.9 H D (9.8-11.6) sec INR Ratio APTT (24.3-30.1) sec O2 Saturation (90-100) % ABG pH (7.380-7.420) ABG pCO2 (38-42) mmHg ABG pO2 (61-120) mmHG ABG HCO3 (22-26) mmol/L ABG Base Excess (-2-2) mmol/L Hemoglobin (12.0-16.0) G/DL Potassium (3.5-5.1) meq/L Carbon Dioxide (21.0-32.0) meq/L Anion Gap (5-15) meq/L BUN (7-18) mg/dL Creatinine (0.60-1.30) mg/dL Estimated GFR (>89) mL/min POC Glucose (68-110) mg/dl Random Glucose (74-106) mg/dL Lactic Acid 13.0 H* (0.4-2.0) mmol/L Calcium (8.5-10.1) mg/dL Prot Corrected Calcium (8.5-10.1) mg/dL Total Bilirubin (0.2-1.0) mg/dL AST (15-37) U/L ALT (12-78) U/L Troponin I (0.02-0.05) ng/mL Total Protein (6.4-8.2) g/dL Albumin (3.4-5.0) g/dL Urine Clarity (Clear) Urine Occult Blood (Negative) Urine Urobilinogen (Less than 2) mg/dL Urine Mucus (Occasional) /lpf Short CBC 08/31/18 09/01/18 Range/Units 21:45 04:15 WBC 16.4 H 18.0 H (4.0-11.0) th/mm3 Hgb 11.9 L D 11.8 L (13.0-17.0) gm/dL Hct 38.0 L 37.9 L (39.0-51.0) % Plt Count 263 248 (150-450) th/mm3 BMP 08/31/18 09/01/18 21:45 04:15 Sodium 144 139 Potassium 5.5 H 4.8 Chloride 103 102 Carbon Dioxide 15.1 L 13.5 L BUN 50 H 49 H Creatinine 3.26 H 3.14 H Calcium 7.7 L D 7.2 L* Cardiac Enzymes 08/31/18 Range/Units 21:45 Troponin I 0.12 H (0.02-0.05) ng/mL Liver Function 08/31/18 09/01/18 Range/Units 21:45 04:15 Total Bilirubin 2.6 H 2.8 H (0.2-1.0) mg/dL AST 45891 H 53914 H (15-37) U/L ALT 4298 H 5706 H (12-78) U/L Alkaline Phosphatase 57 62 (45-117) U/L Albumin 2.7 L D 2.7 L (3.4-5.0) g/dL Urine 08/31/18 Range/Units 21:45 Urine Color Yellow (Yellw/Straw) Urine Clarity Hazy H (Clear) Urine pH 5.0 (5.0-8.5) Ur Specific [place] 1.011 (1.002-1.035) Urine Protein Negative (Neg-Trace) mg/dL Urine Glucose (UA) Negative (Negative) mg/dL <Abdiaziz Fountain O - 09/01/18 10:35> - Imaging Impressions Chest X-Ray 09/02/18 07:20 CONCLUSION: Increasing parenchymal changes on the right. <Tiago Le L - 09/02/18 15:49> Impressions Chest X-Ray 08/31/18 00:00 CONCLUSION: Mild cardiomegaly. No acute findings. Stable compared to prior. Chest X-Ray 08/31/18 20:47 CONCLUSION: 1. ETT in good position. Right subclavian central line in good position without pneumothorax. 2. Developing right lower lung zone ill-defined airspace disease. Abdomen/Pelvis CT 09/01/18 00:00 CONCLUSION: 1. Trace ascites, nonspecific. Also mild body wall edema. No organized or drainable fluid. 2. Diverticulosis of the sigmoid colon. No diverticulitis or other acute inflammatory changes. 3. Atherosclerosis of the aorta. Chest CT 09/01/18 00:00 CONCLUSION: 1. Bilateral pneumonia, especially right upper lobe. 2. Small bilateral pleural effusions; dependent/compressive atelectasis of both lower lobes. 3. Panchamber enlargement of the heart. Head CT 09/01/18 00:00 CONCLUSION: 1. No acute intracranial abnormality demonstrated. 2. Atrophy and chronic periventricular white matter changes. . Chest X-Ray 09/01/18 06:00 CONCLUSION: No significant change. <Abdiaziz Fountain O - 09/01/18 10:35> Physical Exam Vital signs: Vital Signs 09/01/18 16:00 09/01/18 16:35 09/01/18 19:00 Temperature 98.2 F Pulse Rate 75 74 81 Respiratory Rate 25 H 22 Blood Pressure 106/60 Pulse Oximetry 99 99 09/01/18 20:00 09/01/18 20:10 09/01/18 20:15 Temperature 98.2 F Pulse Rate 73 72 Respiratory Rate 18 18 18 Blood Pressure 104/57 L Pulse Oximetry 98 97 09/01/18 21:00 09/01/18 22:00 09/01/18 23:00 Temperature Pulse Rate 81 82 71 Respiratory Rate Blood Pressure Pulse Oximetry 09/02/18 00:00 09/02/18 00:56 09/02/18 00:59 Temperature 98.2 F Pulse Rate 74 72 Respiratory Rate 18 18 18 Blood Pressure 101/59 L Pulse Oximetry 97 97 09/02/18 01:00 09/02/18 02:00 09/02/18 03:00 Temperature Pulse Rate 73 72 71 Respiratory Rate Blood Pressure Pulse Oximetry 09/02/18 04:00 09/02/18 04:55 09/02/18 05:00 Temperature 97.6 F Pulse Rate 68 70 69 Respiratory Rate 18 24 Blood Pressure 104/61 Pulse Oximetry 95 09/02/18 06:00 09/02/18 07:00 09/02/18 08:00 Temperature 98.1 F Pulse Rate 69 68 68 Respiratory Rate 14 18 Blood Pressure 98/56 L Pulse Oximetry 98 09/02/18 09:00 09/02/18 10:00 09/02/18 11:00 Temperature Pulse Rate 68 71 68 Respiratory Rate 17 Blood Pressure Pulse Oximetry 09/02/18 12:00 09/02/18 13:00 09/02/18 14:00 Temperature 97.6 F Pulse Rate 68 70 71 Respiratory Rate 14 Blood Pressure 101/60 Pulse Oximetry 99 09/02/18 15:00 Temperature Pulse Rate 73 Respiratory Rate Blood Pressure Pulse Oximetry Intake & Output 09/01/18 09/02/18 09/02/18 18:59 06:59 18:59 Intake Total 3290 / 3290 2250 / 2250 1711 / 1711 Output Total 100 / 100 800 / 800 Balance 3190 / 3190 1450 / 1450 1711 / 1711 Weight 80.6 kg Intake: IV 3290 / 3290 2250 / 2250 1711 / 1711 Cordarone Inj 450 MG In D5W Inj 250 / 250 250 / 250 250 / 250 241 ML @ 1 MG/MIN 33.33 mls/hr IV.CONT TITRATE PRN Rx#: [id number] Dobutrex Inj 500 MG In D5W Inj 200 / 200 210 ML @ 2.5 MCG/KG/MIN 5.17 mls/hr IV.CONT .Q24H [facility] Rx#: [id number] Neosynephrine Inj 80 MG In NS 800 / 800 Inj 492 ML @ 40 MCG/MIN 15 mls/ hr IV.CONT TITRATE PRN Rx#: [id number] Sodium Bicarbonate 8.4% Inj 150 1000 / 1000 1000 / 1000 235 / 235 MEQ In Sterile Water for Inj 850 ML @ 150 mls/hr IV.CONT . Q6H40M [facility] Rx#:[id number] Flexbumin 25% Inj 50 ML @ 50 0 / 0 100 / 100 50 / 50 mls/hr IV.SIG Q12H [facility] Rx#: [id number] Azithromycin Inj 500 MG In NS 250 / 250 Inj 250 ML @ 250 mls/hr IV.SIG Q24H [facility] Rx#:[id number] Azactam Inj 2 GM In NS Inj 100 100 / 100 100 / 100 200 / 200 ML @ 200 mls/hr IV.SIG Q8H [facility] Rx#:[id number] Calcium Chloride Inj 1 GM In 110 / 110 110 / 110 D5W Inj 100 ML @ 110 mls/hr IV. SIG ONCE ONE Rx#:[id number] Magnesium Sulfate Inj 2 GM In 100 / 100 NS Inj 96 ML @ 50 mls/hr IV.SIG ONCE ONE Rx#:[id number] Levophed Inj 4 MG In NS Inj 246 730 / 730 ML @ 2 MCG/MIN 7.5 mls/hr IV. SIG TITRATE PRN Rx#:[id number] Vitamin K Inj 10 MG In D5W Inj 51 / 51 50 ML @ 102 mls/hr IV.SIG STAT STA Rx#:[id number] Vancomycin Inj 1,500 MG In NS 515 / 515 Inj 500 ML @ 250 mls/hr IV.SIG ONCE ONE Rx#:[id number] Vancomycin Inj 500 MG In NS Inj 100 / 100 100 ML @ 200 mls/hr IV.SIG ONCE ONE Rx#:[id number] fentaNYL 10 mcg/mL Premix Drip 250 / 250 2,500 mcg In 250 ml @ 50 MCG/HR 5 mls/hr IV.SIG TITRATE PRN Rx #:[id number] Flagyl 500 MG Inj 100 ML @ 100 200 / 200 100 / 100 200 / 200 mls/hr IV.SIG Q8H [facility] Rx#: [id number] Oral 0 / 0 Output: Urine 100 / 100 Urine Amount (Catheter) 800 / 800 Indwelling Urethral Catheter 800 / 800 Other: Date of Last Bowel Movement 08/29/18 # Bowel Movements 0 <Tiago Le L - 09/02/18 15:49> Vital Signs 08/31/18 11:00 08/31/18 12:00 08/31/18 13:00 Temperature Pulse Rate 96 H 96 H 87 Respiratory Rate Blood Pressure Pulse Oximetry 08/31/18 14:00 08/31/18 15:00 08/31/18 16:00 Temperature Pulse Rate 90 90 93 H Respiratory Rate 20 Blood Pressure 105/57 L Pulse Oximetry 08/31/18 17:00 08/31/18 18:00 08/31/18 19:00 Temperature Pulse Rate 87 87 90 Respiratory Rate Blood Pressure Pulse Oximetry 08/31/18 20:00 08/31/18 20:45 08/31/18 21:00 Temperature 97.7 F Pulse Rate 95 H 97 H Respiratory Rate 22 17 Blood Pressure 90/41 L Pulse Oximetry 94 L 100 08/31/18 22:00 08/31/18 22:31 08/31/18 22:40 Temperature 97 F L Pulse Rate 113 H 112 H 116 H Respiratory Rate 18 18 Blood Pressure 112/71 Pulse Oximetry 08/31/18 22:50 08/31/18 23:00 08/31/18 23:10 Temperature Pulse Rate 108 H 110 H 104 H Respiratory Rate 18 11 L 0 L Blood Pressure 113/61 111/61 112/56 L Pulse Oximetry 08/31/18 23:20 08/31/18 23:30 08/31/18 23:40 Temperature Pulse Rate 105 H 98 H 104 H Respiratory Rate 23 16 0 L Blood Pressure 114/56 L 110/68 114/75 Pulse Oximetry 100 91 L 100 08/31/18 23:50 09/01/18 00:00 09/01/18 00:10 Temperature Pulse Rate 105 H 99 H 101 H Respiratory Rate 18 18 18 Blood Pressure 122/68 111/66 111/75 Pulse Oximetry 100 98 96 09/01/18 00:20 09/01/18 00:30 09/01/18 00:40 Temperature Pulse Rate 103 H 97 H 97 H Respiratory Rate 18 18 18 Blood Pressure 114/64 115/58 L 117/66 Pulse Oximetry 98 100 100 09/01/18 00:50 09/01/18 01:00 09/01/18 01:10 Temperature Pulse Rate 95 H 88 88 Respiratory Rate 18 18 18 Blood Pressure 112/62 112/59 L 114/68 Pulse Oximetry 99 100 100 09/01/18 01:20 09/01/18 01:30 09/01/18 01:47 Temperature Pulse Rate 104 H 100 H 107 H Respiratory Rate 18 18 25 H Blood Pressure 118/56 L 121/60 124/59 L Pulse Oximetry 100 100 100 09/01/18 01:50 09/01/18 02:00 09/01/18 02:05 Temperature Pulse Rate 95 H 98 H 98 H Respiratory Rate 25 H 24 19 Blood Pressure 123/62 108/58 L 106/60 Pulse Oximetry 100 100 100 09/01/18 02:10 09/01/18 02:16 09/01/18 02:20 Temperature Pulse Rate 93 H 90 Respiratory Rate 18 18 Blood Pressure 101/68 109/58 L Pulse Oximetry 100 100 100 09/01/18 02:30 09/01/18 02:40 09/01/18 02:50 Temperature Pulse Rate 97 H 95 H 99 H Respiratory Rate 18 18 18 Blood Pressure 114/58 L 123/59 L 117/58 L Pulse Oximetry 100 100 100 09/01/18 03:00 09/01/18 03:10 09/01/18 03:20 Temperature Pulse Rate 96 H 91 H 91 H Respiratory Rate 18 19 19 Blood Pressure 119/57 L 94/45 L 86/49 L Pulse Oximetry 100 99 96 09/01/18 03:30 09/01/18 03:40 09/01/18 03:54 Temperature Pulse Rate 97 H 88 93 H Respiratory Rate 18 23 19 Blood Pressure 91/50 L 84/52 L 79/52 L Pulse Oximetry 99 92 L 99 09/01/18 04:00 09/01/18 04:03 09/01/18 04:10 Temperature Pulse Rate 98 H 97 H 88 Respiratory Rate 19 19 21 Blood Pressure 73/55 L 79/58 L Pulse Oximetry 100 96 95 09/01/18 04:20 09/01/18 04:30 09/01/18 04:48 Temperature Pulse Rate 91 H 98 H 84 Respiratory Rate 19 20 19 Blood Pressure 75/54 L 80/56 L Pulse Oximetry 100 99 99 09/01/18 05:01 09/01/18 05:05 09/01/18 05:55 Temperature Pulse Rate 89 96 H 82 Respiratory Rate 22 18 21 Blood Pressure 99/67 L 99/67 L 102/57 L Pulse Oximetry 96 98 09/01/18 08:16 09/01/18 10:21 Temperature Pulse Rate 103 H Respiratory Rate 26 H 22 Blood Pressure Pulse Oximetry 98 99 Intake & Output 08/31/18 09/01/18 09/01/18 18:59 06:59 18:59 Intake Total 50 / 50 4624 / 4624 850 / 850 Balance 50 / 50 4624 / 4624 850 / 850 Weight 76.7 kg Intake: IV 50 / 50 4110 / 4110 850 / 850 Sodium Bicarbonate 8.4% Inj 50 100 / 100 ML @ 0 mls/hr .ROUTE .[facility] Rx#:[id number] Cordarone Inj 450 MG In D5W Inj 250 / 250 241 ML @ 1 MG/MIN 33.33 mls/hr IV.CONT TITRATE PRN Rx#: [id number] DOPamine 400 MG/250 ML Premix 160 / 160 400 mg In 250 ml @ 0 mls/hr IV. CONT .[facility] Rx#:[id number] Intropin Inj 800 MG In NS Inj 40 / 40 500 ML @ 3 MCG/KG/MIN 8.07 mls/ hr IV.CONT TITRATE PRN Rx#: [id number] Neosynephrine Inj 80 MG In NS 1000 / 1000 500 / 500 Inj 492 ML @ 40 MCG/MIN 15 mls/ hr IV.CONT TITRATE PRN Rx#: [id number] Sodium Bicarbonate 8.4% Inj 150 1000 / 1000 MEQ In Sterile Water for Inj 850 ML @ 150 mls/hr IV.CONT . Q6H40M [facility] Rx#:[id number] Flexbumin 25% Inj 50 ML @ 50 50 / 50 50 / 50 mls/hr IV.SIG Q12H [facility] Rx#: [id number] Cordarone Inj 150 MG In D5W Inj 100 / 100 97 ML @ 100 mls/hr IV.SIG ONCE ONE Rx#:[id number] Azithromycin Inj 500 MG In NS 250 / 250 Inj 250 ML @ 250 mls/hr IV.SIG Q24H [facility] Rx#:[id number] Azactam Inj 2 GM In NS Inj 100 200 / 200 ML @ 200 mls/hr IV.SIG Q8H [facility] Rx#:[id number] Calcium Chloride Inj 1 GM In 110 / 110 D5W Inj 100 ML @ 110 mls/hr IV. SIG ONCE ONE Rx#:[id number] Levophed Inj 4 MG In NS Inj 246 500 / 500 250 / 250 ML @ 2 MCG/MIN 7.5 mls/hr IV. SIG TITRATE PRN Rx#:[id number] NS Inj 250 ML @ 50 mls/hr IV. 0 / 0 SIG ONCE ONE Rx#:[id number] Vancomycin Inj 1,000 MG In NS 250 / 250 Inj 250 ML @ 250 mls/hr IV.SIG ONCE ONE Rx#:[id number] Flagyl 500 MG Inj 100 ML @ 100 100 / 100 100 / 100 mls/hr IV.SIG Q8H [facility] Rx#: [id number] Intake (Blood Product) Amt 514 / 514 Plasma Thawed 5 Day Acda Unit 219 / 219 [id number] Plasma Thawed 5 Day Cp2d Unit 295 / 295 [id number] Plasma Thawed 5 Day Cp2d Unit 0 / 0 [id number] Other: Date of Last Bowel Movement 08/29/18 <Abdiaziz Fountain - 09/01/18 10:35> Narrative: General: Elderly gentleman intubated on mechanical ventilation but alert and responsive. Cardio: Irregular rate and rhythm, irregular 2+ radial pulse. Patient has subclavian central line in place. Pulmonary: Patient currently intubated and mechanically ventilated with an FiO2 of 50% and a PEEP setting of 5 with a respiratory rate of 22. Patient had mild wheezing bilaterally but no rhonchi or crackles are appreciated. GI: Abdomen soft, mildly nondistended, patient she has had no to feeling any abdominal pain and was elicited on palpation Extremities: No cyanosis or edema Neuro: Patient was able to shake his head no when asked questions, and follow commands such as to wiggle your toes as well as to show me 2 fingers which the patient was able to without problem. Patient able to open his eyes, move his head, and attempted to speak but could not be understood. <Abdiaziz Fountain - 09/01/18 17:48> - Urinary Catheter Management Indwelling Urethral Catheter Cath placed during this visit: no <Tiago Le - 09/02/18 15:49> yes <Abdiaziz Fountain - 09/02/18 00:36> Reason for continuing: Hourly intake/output <Abdiaziz Fountain 09/01/18 10:35> Insertion date: 08/31/18 <Abdiaziz Fountain 09/01/18 10:35> Insertion time: 22:00 <Abdiaziz Fountain 09/01/18 10:35> Assessment and Plan - Assessment (1) Cardiogenic shock Code(s): R57.0 - Cardiogenic shock Status: Acute (2) Respiratory failure Code(s): J96.90 - Respiratory failure, unspecified, unspecified whether with hypoxia or hypercapnia Status: Acute (3) Shock liver Code(s): K72.00 - Acute and subacute hepatic failure without coma Status: Acute (4) Streptococcus viridans infection Code(s): A49.1 - Streptococcal infection, unspecified site Status: Acute (5) Bilateral pneumonia Code(s): J18.9 - Pneumonia, unspecified organism Status: Acute (6) Renal failure, acute on chronic Code(s): N17.9 - Acute kidney failure, unspecified; N18.9 - Chronic kidney disease, unspecified Status: Acute (7) Atrial fibrillation with rapid ventricular response Code(s): I48.91 - Unspecified atrial fibrillation Status: Acute (8) Cardiomyopathy Code(s): I42.9 - Cardiomyopathy, unspecified Status: Chronic (9) V-tach Code(s): I47.2 - Ventricular tachycardia Status: Chronic (10) Hyperlipidemia Code(s): E78.5 - Hyperlipidemia, unspecified Status: Acute (11) Hypothyroidism Code(s): E03.9 - Hypothyroidism, unspecified Status: Chronic <Tiago Le - 09/02/18 15:49> (1) Cardiogenic shock Code(s): R57.0 - Cardiogenic shock Status: Acute Plan: Patient intubated, mechanically ventilated, and has central line in place due to respiratory failure secondary to cardiogenic shock. Patient originally admitted for A. fib with RVR is scheduled for EMILEE yesterday. Patient has a previous ejection fraction of 17% on echocardiogram from 2017. Patient currently on dobutamine and vasopressin. Patient has weak pulse and is currently normotensive on pressors. -Continue dobutamine and vasopressin -Follow-up with cardiology recommendation (2) Respiratory failure Code(s): J96.90 - Respiratory failure, unspecified, unspecified whether with hypoxia or hypercapnia Status: Acute Plan: Patient originally admitted for atrial fibrillation with RVR and overnight experienced respiratory failure in the setting of cardiogenic shock. Overnight patient was intubated and placed on mechanical ventilation. Patient's ABG showed a metabolic acidosis with respiratory compensation with a blood pH of 7.09. Patient also had open anion gap. Patient also had a lactic acidosis of 15.7. Patient currently satting 95% on 50% FiO2, a PEEP of 5 and a respiratory rate of 22. -Continue intubation mechanical ventilation -Follow-up with repeat ABG -Trend lactic acid (3) Metabolic acidosis Code(s): E87.2 - Acidosis Status: Acute Plan: This patient was found to be in metabolic acidosis after a rapid response team was called to the patient's room and patient was ultimately intubated and put on mechanical ventilation as well as had a central line placed for pressors. Patient's ABG at time of rapid response showed a pH of 7.09, a PCO2 of 32 with a bicarb of 32. This case was discussed with Dr. Schilling in detail as possible sources of his acidosis. Potential causes are potential bowel ischemia but unlikely due to patient's bowel sounds as well as lack of abdominal pain. Patient was also found to have a bilateral pneumonia on chest CT may have contributed to his acidosis. Repeat ABG this morning showed pH of 7.26, a PCO2 of 27, and bicarb of 12. -Monitor arterial blood gases -Trend lactic acid -Continue respiratory rate required for respiratory compensation -Continue mechanical ventilation (4) Shock liver Code(s): K72.00 - Acute and subacute hepatic failure without coma Status: Acute Plan: Patient had elevated transaminases on admission with AST of 658 and an ALT of 460 on admission. Patient's transaminases initially downtrending but has dramatically increased in the setting of cardiogenic shock. This morning ALT was 5.706 within AST of 14,595 indicating shock liver. Patient currently on pressors via central line with a arterial line mean blood pressure of 78 with a blood pressure of 102/57 this morning. -Continue pressors to maintain perfusion -Trend transaminases (5) Bilateral pneumonia Code(s): J18.9 - Pneumonia, unspecified organism Status: Acute Plan: Patient was mergently intubated for severe respiratory distress and hypoxia. Patient had a CT of the chest that showed bilateral pneumonia particularly in the right upper lobe. Patient began on broad-spectrum antibiotics. Sputum Gram stain showed multiple white blood cells but no organisms. Patient status post 1 dose of vancomycin. -Strep pneumoniae antigen negative -Legionella antigen negative -Continue mechanical ventilation, PRVC/AC -DuoNeb every 4 hours scheduled and as needed -Follow-up with blood cultures -Continue azithromycin -Continue aztreonam -Continue Flagyl (6) Renal failure, acute on chronic Code(s): N17.9 - Acute kidney failure, unspecified; N18.9 - Chronic kidney disease, unspecified Status: Acute Plan: Patient with BUN of 47 and creatinine of 2.45 on admission initially improved but has significant decline in renal function after respiratory failure secondary to cardiogenic shock. Perfusion most likely cause of decreased renal function. Current BUN/creatinine of of 49/3.14 and a GFR of 19. Patient currently oliguric. Per nephrology continue bicarb drip. * Avoid nephrotoxic agent * Trend BUN/creatinine and GFR (7) Atrial fibrillation with rapid ventricular response Code(s): I48.91 - Unspecified atrial fibrillation Status: Acute Plan: Initially in AFib with RVR. Rhythm still AFib. Patient in cardiogenic shock currently on dobutamine and vasopressin. Patient previously scheduled for EMILEE yesterday that did not take place. * Cardiology on board, recs appreciated * Continue IV amiodarone * Continue dobutamine and vasopressin * Hold metoprolol * Cardiac telemetry (8) Cardiomyopathy Code(s): I42.9 - Cardiomyopathy, unspecified Status: Chronic Plan: Echo 10/2017, EF=17%, LAE, LVH, PILY, Mod MR, Mod AI, Mod TR, aortic cusp thickening. * Please see plan above for cardio genic shock (9) V-tach Code(s): I47.2 - Ventricular tachycardia Status: Chronic Plan: s/p ICD changed on 07/21/18 (10) Hyperlipidemia Code(s): E78.5 - Hyperlipidemia, unspecified Status: Acute Plan: Hold fenofibrate given acute LFT elevation (11) Hypothyroidism Code(s): E03.9 - Hypothyroidism, unspecified Status: Chronic Plan: TSH within normal limits, free T4 just above the upper limit of normal. -Continue levothyroxine 75mcg daily (12) Nutrition, metabolism, and development symptoms Code(s): R63.8 - Other symptoms and signs concerning food and fluid intake Status: Acute Plan: Fluids: As per motor pool clerk sodium bicarbonate 150 mEq in sterile water at 150 mL /h Diet: Patient currently intubated vitals q4h, monitor I & Os DVT ppx: Hold patient had an INR of 9, bilateral SCDs <Abdiaziz Fountain - 09/02/18 00:34> - Attending Attestation The exam, history, and the medical decision-making described in the above note were completed with the assistance of the resident physician. I reviewed and agree with the findings presented. I attest that I had a [id number] encounter with the patient on the same day, and personally performed and documented my assessment and findings in the medical record. Patient developed severe metabolic acidosis with severe lactic acidosis secondary to cardiogenic shock versus sepsis. Currently intubated and mechanically ventilated, in the ICU with motor pool clerk helping to manage. Keeping close communication with patient's and updated her regularly on his status. Palliative care is also on board. <Tiago Le - 09/02/18 15:49> <Abdiaziz Fountain O - Last Filed: 09/02/18 00:34> (6) Renal failure, acute on chronic Qualifiers: Acute renal failure type: unspecified Chronic kidney disease stage: unspecified stage Qualified Code(s): N17.9 - Acute kidney failure, unspecified ; N18.9 - Chronic kidney disease, unspecified <Tiago Le - Last Filed: 09/02/18 15:49> (6) Renal failure, acute on chronic Qualifiers: Acute renal failure type: unspecified Chronic kidney disease stage: unspecified stage Qualified Code(s): N17.9 - Acute kidney failure, unspecified ; N18.9 - Chronic kidney disease, unspecified <Abdiaziz Fountain O - Last Filed: 09/02/18 00:34> (6) Renal failure, acute on chronic Qualifiers: Acute renal failure type: unspecified Chronic kidney disease stage: unspecified stage Qualified Code(s): N17.9 - Acute kidney failure, unspecified ; N18.9 - Chronic kidney disease, unspecified <Tiago Le - Last Filed: 09/02/18 15:49> (6) Renal failure, acute on chronic Qualifiers: Acute renal failure type: unspecified Chronic kidney disease stage: unspecified stage Qualified Code(s): N17.9 - Acute kidney failure, unspecified ; N18.9 - Chronic kidney disease, unspecified
--- NOTE | 2018-09-01 11:40 | P.CONNP ---
History of Present Illness Service: Nephrology Reason for Consult: THERESA Primary Care Provider: Davy Walters MD Chief Complaint: atrial fib with RVR History of Present Illness: This is an 83 year old with history of atrial fibrillation, chronic systolic heart failure with EF of 17%, admitted on the of this month with shortness of breath. Plan was for EMILEE cardioversion today. However yesterday, he apparently became increasingly short of breath. He was given Ativan for presumed anxiety. He later acutely decompensated, developed hypotension, and was transferred to ICU. He was intubated. He has developed THERESA. Urine output is scant. He is on Levophed and phenylephrine. He is also on dobutamine. He has developed transaminitis as well, likely due to ischemic hepatitis. Discussed with Dr. Schilling. Review of Systems unobtainable due to endotracheal tube PMFSH - History History Provided By: Patient - Medical History Medical History: Medical History (Last Reviewed 08/31/18 @ 22:46 by Beka Serrano MD) Afib COPD (chronic obstructive pulmonary disease) Diabetes Glaucoma HLD (hyperlipidemia) HTN (hypertension) Hypothyroid ICD (implantable cardioverter-defibrillator) in place Mitral regurgitation Skin cancer Ventricular tachycardia - Surgical History Surgical History: Surgical History (Last Reviewed 08/31/18 @ 22:46 by Beka Serrano MD) H/O sinus surgery Hx of CABG - Family History Family History: Family History (Last Updated 08/28/18 @ 22:09 by Ashanti Bloom MD, R2) Father Colon cancer - Tobacco History Second Hand Smoke Exposure: No Smoking Status: Former smoker - Alcohol History How Often Do You Have a Drink Containing Alcohol: Never - Substance Use History Substance History: No History of Abuse - Travel History History of Recent Travel: No Recent Travel in the [place] Within the Last 8 Weeks: No Recent Travel Out of the Country Within the Last 8 Weeks: No - Immunization History Tetanus Immunization: Unsure Hx Influenza Vaccine This Season: No Medications and Allergies Active Medications: Active Medications Albuterol (Duoneb Neb (Prn)) 1 ampul NEB Q2HR NEB PRN PRN Reason: SHORTNESS OF BREATH Albuterol (Duoneb Neb (Jaspal)) 1 ampul NEB Q4HR NEB JASPAL Last Admin: 09/01/18 11:05 Dose: 1 ampul Amiodarone HCl (Cordarone) 200 mg PO BID [facility] Last Admin: 09/01/18 00:32 Dose: Not Given Bumetanide (Bumex Inj) 1 mg IV.PUSH Q12H [facility] Last Admin: 09/01/18 00:32 Dose: Not Given Chlorhexidine Gluconate (Peridex 0.12% Oral Kit) 15 ml OROPHARYNG BID@0800, 2000 [facility] Last Admin: 09/01/18 09:01 Dose: 15 ml Chlorhexidine Gluconate (Chlorhexidine 2% Cloth) 3 pack TOPICAL DAILY@0400 JASPAL Stop: 09/06/18 03:59 Last Admin: 09/01/18 05:19 Dose: 3 pack Chlorhexidine Gluconate (Chlorhexidine 2% Cloth) 3 pack TOPICAL DAILY@0400 PRN PRN Reason: Extra cloth needed Stop: 09/06/18 03:59 Famotidine (Pepcid Pf Inj) 20 mg IV.PUSH Q12HR [facility] Last Admin: 09/01/18 08:58 Dose: 20 mg Hydrocortisone Sodium Succinate (Solucortef Inj) 100 mg IV.PUSH Q8HR [facility] Last Admin: 09/01/18 05:44 Dose: 100 mg Diltiazem HCl 125 mg/ Sodium (Chloride) 125 mls @ 5 mls/hr IV.CONT TITRATE PRN ; Protocol PRN Reason: Per Protocol Last Titration: 08/29/18 13:59 Dose: Infused Albumin Human (Flexbumin 25% Inj) 50 mls @ 50 mls/hr IV.SIG Q12H [facility] Last Admin: 09/01/18 09:01 Dose: 50 mls/hr Aztreonam 2 gm/ Sodium (Chloride) 100 mls @ 200 mls/hr IV.SIG Q8H [facility] Last Infusion: 09/01/18 06:24 Dose: Infused Metronidazole/Sodium Chloride (Flagyl 500 Mg Inj) 100 mls @ 100 mls/hr IV.SIG Q8H [facility] Last Infusion: 09/01/18 07:59 Dose: Infused Amiodarone HCl 450 mg/ (Dextrose) 250 mls @ 33.33 mls/hr IV.CONT TITRATE PRN; Protocol PRN Reason: Per Protocol Last Titration: 09/01/18 07:59 Dose: 0.5 mg/min, 16.66 mls/hr Dopamine HCl 800 mg/ Sodium (Chloride) 520 mls @ 8.07 mls/hr IV.CONT TITRATE PRN; Protocol PRN Reason: See Protocol Last Titration: 08/31/18 23:00 Dose: Infused Phenylephrine HCl 80 mg/ (Sodium Chloride) 500 mls @ 15 mls/hr IV.CONT TITRATE PRN; Protocol PRN Reason: See prorocol Last Admin: 09/01/18 09:01 Dose: 300 mcg/min, 112.5 mls/hr Norepinephrine Bitartrate 4 mg (/ Sodium Chloride) 250 mls @ 7.5 mls/hr IV.SIG TITRATE PRN; Protocol PRN Reason: Per Protocol Last Admin: 09/01/18 09:39 Dose: 25 mcg/min, 93.75 mls/hr Dobutamine HCl 500 mg/ (Dextrose) 250 mls @ 5.17 mls/hr IV.CONT .Q24H [facility] Last Infusion: 09/01/18 07:59 Dose: 5 mcg/kg/min, 10.35 mls/hr Sodium Bicarbonate 150 meq/ (Sterile Water) 1,000 mls @ 150 mls/hr IV.CONT .Q6H40M [facility] Last Infusion: 09/01/18 07:59 Dose: 150 mls/hr Sodium Chloride (Ns Inj) 1,000 mls @ 0 mls/hr IV.SIG BOLUS JASPAL Azithromycin 500 mg/ Sodium (Chloride) 250 mls @ 250 mls/hr IV.SIG Q24H [facility] Last Infusion: 09/01/18 04:00 Dose: Infused Fentanyl (Fentanyl 10 Mcg/Ml Premix Drip) 2,500 mcg in 250 mls @ 5 mls/hr IV.SIG TITRATE PRN; Protocol PRN Reason: Per Protocol Latanoprost (Xalatan 0.005% Opth Drops) 1 drop EACH EYE QPM [facility] Last Admin: 08/31/18 17:51 Dose: 1 drop Levothyroxine Sodium (Synthroid) 75 mcg PO DAILY@0600 [facility] Last Admin: 09/01/18 06:48 Dose: Not Given Metoprolol Tartrate (Lopressor) 25 mg PO BID [facility] Last Admin: 09/01/18 00:33 Dose: Not Given Miscellaneous Medication () 1 each OROPHARYNG 0000,0400,1200,1600 [facility] Last Admin: 09/01/18 05:19 Dose: 1 each Morphine Sulfate (Morphine Inj) 4 mg IV.PUSH Q2H PRN PRN Reason: Pain6-10 Last Admin: 09/01/18 08:59 Dose: 4 mg Pharmacy Profile Note (Vancomycin Consult Pharmacy) 1 each OTHER UNSCH PRN PRN Reason: Pharmacy to dose Potassium Chloride (Kcl) 20 meq PO BID [facility] Last Admin: 09/01/18 09:02 Dose: Not Given Rivaroxaban (Xarelto) 15 mg PO QPM [facility] Last Admin: 08/31/18 17:44 Dose: 15 mg Sodium Chloride (Ns Flush) 2 ml IV.FLUSH BID [facility] Last Admin: 09/01/18 09:02 Dose: 2 ml Sodium Chloride (Ns Flush) 2 ml IV.FLUSH PRN PRN PRN Reason: FLUSH AFTER USING IV ACCESS Terbutaline Sulfate (Brethine Inj) 1 mg SQ UNSCH PRN PRN Reason: For Extravasation Allergies Allergy/AdvReac Type Severity Reaction Status Date / Time prednisone Allergy Severe Weight loss Verified 08/28/18 14:33 penicillin G Allergy Intermediate Hives Verified 08/28/18 14:33 Sulfa (Sulfonamide Allergy Intermediate Hives Verified 08/28/18 14:33 Antibiotics) Home Medications Medication Instructions Recorded Confirmed Type fenofibrate 160 mg PO DAILY 07/22/18 08/28/18 History latanoprost 1 drp OPHTHALMIC (EYE) QPM 07/22/18 08/28/18 History levothyroxine [Synthroid] 75 mcg PO DAILY 07/22/18 08/28/18 History pitavastatin calcium [Livalo] 2 mg PO 3XW 07/22/18 08/28/18 History metoprolol tartrate 25 mg PO BID 08/28/18 08/28/18 History rivaroxaban [Xarelto] 15 mg PO QPM 08/28/18 08/28/18 History torsemide 20 mg PO EVERY OTHER DAY 08/28/18 08/28/18 History amiodarone 200 mg PO 08/29/18 History Exam Vital signs: Vital Signs 08/31/18 12:00 08/31/18 13:00 08/31/18 14:00 Temperature Pulse Rate 96 H 87 90 Respiratory Rate Blood Pressure Pulse Oximetry 08/31/18 15:00 08/31/18 16:00 08/31/18 17:00 Temperature Pulse Rate 90 93 H 87 Respiratory Rate 20 Blood Pressure 105/57 L Pulse Oximetry 08/31/18 18:00 08/31/18 19:00 08/31/18 20:00 Temperature 97.7 F Pulse Rate 87 90 95 H Respiratory Rate 22 Blood Pressure 90/41 L Pulse Oximetry 94 L 08/31/18 20:45 08/31/18 21:00 08/31/18 22:00 Temperature Pulse Rate 97 H 113 H Respiratory Rate 17 Blood Pressure Pulse Oximetry 100 08/31/18 22:31 08/31/18 22:40 08/31/18 22:50 Temperature 97 F L Pulse Rate 112 H 116 H 108 H Respiratory Rate 18 18 18 Blood Pressure 112/71 113/61 Pulse Oximetry 08/31/18 23:00 08/31/18 23:10 08/31/18 23:20 Temperature Pulse Rate 110 H 104 H 105 H Respiratory Rate 11 L 0 L 23 Blood Pressure 111/61 112/56 L 114/56 L Pulse Oximetry 100 08/31/18 23:30 08/31/18 23:40 08/31/18 23:50 Temperature Pulse Rate 98 H 104 H 105 H Respiratory Rate 16 0 L 18 Blood Pressure 110/68 114/75 122/68 Pulse Oximetry 91 L 100 100 09/01/18 00:00 09/01/18 00:10 09/01/18 00:20 Temperature Pulse Rate 99 H 101 H 103 H Respiratory Rate 18 18 18 Blood Pressure 111/66 111/75 114/64 Pulse Oximetry 98 96 98 09/01/18 00:30 09/01/18 00:40 09/01/18 00:50 Temperature Pulse Rate 97 H 97 H 95 H Respiratory Rate 18 18 18 Blood Pressure 115/58 L 117/66 112/62 Pulse Oximetry 100 100 99 09/01/18 01:00 09/01/18 01:10 09/01/18 01:20 Temperature Pulse Rate 88 88 104 H Respiratory Rate 18 18 18 Blood Pressure 112/59 L 114/68 118/56 L Pulse Oximetry 100 100 100 09/01/18 01:30 09/01/18 01:47 09/01/18 01:50 Temperature Pulse Rate 100 H 107 H 95 H Respiratory Rate 18 25 H 25 H Blood Pressure 121/60 124/59 L 123/62 Pulse Oximetry 100 100 100 09/01/18 02:00 09/01/18 02:05 09/01/18 02:10 Temperature Pulse Rate 98 H 98 H 93 H Respiratory Rate 24 19 18 Blood Pressure 108/58 L 106/60 101/68 Pulse Oximetry 100 100 100 09/01/18 02:16 09/01/18 02:20 09/01/18 02:30 Temperature Pulse Rate 90 97 H Respiratory Rate 18 18 Blood Pressure 109/58 L 114/58 L Pulse Oximetry 100 100 100 09/01/18 02:40 09/01/18 02:50 09/01/18 03:00 Temperature Pulse Rate 95 H 99 H 96 H Respiratory Rate 18 18 18 Blood Pressure 123/59 L 117/58 L 119/57 L Pulse Oximetry 100 100 100 09/01/18 03:10 09/01/18 03:20 09/01/18 03:30 Temperature Pulse Rate 91 H 91 H 97 H Respiratory Rate 19 19 18 Blood Pressure 94/45 L 86/49 L 91/50 L Pulse Oximetry 99 96 99 09/01/18 03:40 09/01/18 03:54 09/01/18 04:00 Temperature Pulse Rate 88 93 H 98 H Respiratory Rate 23 19 19 Blood Pressure 84/52 L 79/52 L 73/55 L Pulse Oximetry 92 L 99 100 09/01/18 04:03 09/01/18 04:10 09/01/18 04:20 Temperature Pulse Rate 97 H 88 91 H Respiratory Rate 19 21 19 Blood Pressure 79/58 L 75/54 L Pulse Oximetry 96 95 100 09/01/18 04:30 09/01/18 04:48 09/01/18 05:01 Temperature Pulse Rate 98 H 84 89 Respiratory Rate 20 19 22 Blood Pressure 80/56 L 99/67 L Pulse Oximetry 99 99 96 09/01/18 05:05 09/01/18 05:55 09/01/18 08:16 Temperature Pulse Rate 96 H 82 103 H Respiratory Rate 18 21 26 H Blood Pressure 99/67 L 102/57 L Pulse Oximetry 98 98 09/01/18 10:21 09/01/18 11:07 Temperature Pulse Rate 106 H Respiratory Rate 22 22 Blood Pressure Pulse Oximetry 99 Intake & Output 08/31/18 09/01/18 09/01/18 18:59 06:59 18:59 Intake Total 50 / 50 4624 / 4624 850 / 850 Balance 50 / 50 4624 / 4624 850 / 850 Weight 76.7 kg Intake: IV 50 / 50 4110 / 4110 850 / 850 Sodium Bicarbonate 8.4% Inj 50 100 / 100 ML @ 0 mls/hr .ROUTE .STK-MED ONE Rx#:[id number] Cordarone Inj 450 MG In D5W Inj 250 / 250 241 ML @ 1 MG/MIN 33.33 mls/hr IV.CONT TITRATE PRN Rx#: [id number] DOPamine 400 MG/250 ML Premix 160 / 160 400 mg In 250 ml @ 0 mls/hr IV. CONT .STK-MED ONE Rx#:[id number] Intropin Inj 800 MG In NS Inj 40 / 40 500 ML @ 3 MCG/KG/MIN 8.07 mls/ hr IV.CONT TITRATE PRN Rx#: [id number] Neosynephrine Inj 80 MG In NS 1000 / 1000 500 / 500 Inj 492 ML @ 40 MCG/MIN 15 mls/ hr IV.CONT TITRATE PRN Rx#: [id number] Sodium Bicarbonate 8.4% Inj 150 1000 / 1000 MEQ In Sterile Water for Inj 850 ML @ 150 mls/hr IV.CONT . Q6H40M JASPAL Rx#:[id number] Flexbumin 25% Inj 50 ML @ 50 50 / 50 50 / 50 mls/hr IV.SIG Q12H JASPAL Rx#: [id number] Cordarone Inj 150 MG In D5W Inj 100 / 100 97 ML @ 100 mls/hr IV.SIG ONCE ONE Rx#:[id number] Azithromycin Inj 500 MG In NS 250 / 250 Inj 250 ML @ 250 mls/hr IV.SIG Q24H J[facility] Rx#:[id number] Azactam Inj 2 GM In NS Inj 100 200 / 200 ML @ 200 mls/hr IV.SIG Q8H JASP[facility] Rx#:[id number] Calcium Chloride Inj 1 GM In 110 / 110 D5W Inj 100 ML @ 110 mls/hr IV. SIG ONCE ONE Rx#:[id number] Levophed Inj 4 MG In NS Inj 246 500 / 500 250 / 250 ML @ 2 MCG/MIN 7.5 mls/hr IV. SIG TITRATE PRN Rx#:[id number] NS Inj 250 ML @ 50 mls/hr IV. 0 / 0 SIG ONCE ONE Rx#:[id number] Vancomycin Inj 1,000 MG In NS 250 / 250 Inj 250 ML @ 250 mls/hr IV.SIG ONCE ONE Rx#:[id number] Flagyl 500 MG Inj 100 ML @ 100 100 / 100 100 / 100 mls/hr IV.SIG Q8H [facility] Rx#: [id number] Intake (Blood Product) Amt 514 / 514 Plasma Thawed 5 Day Acda Unit 219 / 219 [id number] Plasma Thawed 5 Day Cp2d Unit 295 / 295 [id number] Plasma Thawed 5 Day Cp2d Unit 0 / 0 [id number] Other: Date of Last Bowel Movement 08/29/18 - Constitutional chronically ill appearing Comments: on the ventilator, opens eyes, he was moving his extremities. - Routine HEENT Exam Head: Present: normocephalic, atraumatic Eye: Present: EOMI, PERRL ENT: Present: mucous membranes moist - Routine Neck Exam Absent: lymphadenopathy, thyromegaly - Routine Respiratory Exam Present: CTA bilaterally Comments: vented breath sounds heard bilaterally. - Routine Cardiovascular Exam Present: tachycardia, irregularly irregular - Routine Abdominal Exam Comments: distended, firm, hypoactive bowel sounds. - Routine Extremities Exam Present: cyanosis. Absent: edema - Routine Skin Exam Present: intact - Routine Neurological Exam poorly responsive on the ventilator. Results - Lab Results 09/01/18 04:15 09/01/18 04:15 Most recent lab results ABG pH 7.26 (7.380-7.420) L* 09/01/18 09:13 ABG pCO2 27 mmHg (38-42) L 09/01/18 09:13 ABG pO2 144 mmHG (61-120) H 09/01/18 09:13 ABG HCO3 12 mmol/L (22-26) L* 09/01/18 09:13 Calcium 7.2 mg/dL (8.5-10.1) L* 09/01/18 04:15 Magnesium 2.0 mg/dL (1.5-2.5) 09/01/18 04:15 Assessment and Plan - Assessment (1) Acute kidney injury Code(s): N17.9 - Acute kidney failure, unspecified Status: Acute Plan: Likely due to ATN due to hypoperfusion, possible sepsis. Oliguric. Currently on bicarbonate drip. Poor prognosis. He is unstable for any form of renal replacement therapy, in any event, renal replacement therapy may not change the outcome. For the time being continue bicarbonate drip as ordered. Avoid nephrotoxic agents. No need for renal US, had CT of the abdomen. No hydronephrosis. Cholesterol embolization is a consideration. He was anticoagulated with Xarelto. (2) Cardiomyopathy Code(s): I42.9 - Cardiomyopathy, unspecified Status: Chronic Plan: Acute on chronic systolic heart failure. Cardiology following. Currently in what appears to be cardiogenic shock. On multiple pressors including dobutamine. (3) Atrial fibrillation with rapid ventricular response Code(s): I48.91 - Unspecified atrial fibrillation Status: Acute Plan: Cardiology followup. Monitor heart rate. Xarelto will have to be held in the presence of renal failure. (4) Transaminitis Code(s): R74.0 - Nonspecific elevation of levels of transaminase and lactic acid dehydrogenase [LDH] Status: Acute Plan: Due to ischemic hepatitis.
[2018-09-01 13:02] LABS: ABG PCO2 32 mmHg (38-42); ABG PO2 448 mmHg (60-120)
--- NOTE | 2018-09-01 13:04 | P.PNCA ---
Subjective Interval history: Patient intubated due to respiratory failure. Patient in atrial fibrillation with RVR. at bedside. Medications and Allergies Allergies Allergy/AdvReac Type Severity Reaction Status Date / Time prednisone Allergy Severe Weight loss Verified 08/28/18 14:33 penicillin G Allergy Intermediate Hives Verified 08/28/18 14:33 Sulfa (Sulfonamide Allergy Intermediate Hives Verified 08/28/18 14:33 Antibiotics) Home Medications Medication Instructions Recorded Confirmed Type fenofibrate 160 mg PO DAILY 07/22/18 08/28/18 History latanoprost 1 drp OPHTHALMIC (EYE) QPM 07/22/18 08/28/18 History levothyroxine [Synthroid] 75 mcg PO DAILY 07/22/18 08/28/18 History pitavastatin calcium [Livalo] 2 mg PO 3XW 07/22/18 08/28/18 History metoprolol tartrate 25 mg PO BID 08/28/18 08/28/18 History rivaroxaban [Xarelto] 15 mg PO QPM 08/28/18 08/28/18 History torsemide 20 mg PO EVERY OTHER DAY 08/28/18 08/28/18 History amiodarone 200 mg PO 08/29/18 History Active Medications: Active Medications Albuterol (Duoneb Neb (Prn)) 1 ampul NEB Q2HR NEB PRN PRN Reason: SHORTNESS OF BREATH Albuterol (Duoneb Neb (Jaspal)) 1 ampul NEB Q4HR NEB [facility] Last Admin: 09/01/18 11:05 Dose: 1 ampul Amiodarone HCl (Cordarone) 200 mg PO BID [facility] Last Admin: 09/01/18 00:32 Dose: Not Given Bumetanide (Bumex Inj) 1 mg IV.PUSH Q12H [facility] Last Admin: 09/01/18 00:32 Dose: Not Given Chlorhexidine Gluconate (Peridex 0.12% Oral Kit) 15 ml OROPHARYNG BID@0800, 2000 [facility] Last Admin: 09/01/18 09:01 Dose: 15 ml Chlorhexidine Gluconate (Chlorhexidine 2% Cloth) 3 pack TOPICAL DAILY@0400 [facility] Stop: 09/06/18 03:59 Last Admin: 09/01/18 05:19 Dose: 3 pack Chlorhexidine Gluconate (Chlorhexidine 2% Cloth) 3 pack TOPICAL DAILY@0400 PRN PRN Reason: Extra cloth needed Stop: 09/06/18 03:59 Famotidine (Pepcid Pf Inj) 10 mg IV.PUSH Q12HR [facility] Hydrocortisone Sodium Succinate (Solucortef Inj) 100 mg IV.PUSH Q8HR [facility] Last Admin: 09/01/18 05:44 Dose: 100 mg Diltiazem HCl 125 mg/ Sodium (Chloride) 125 mls @ 5 mls/hr IV.CONT TITRATE PRN ; Protocol PRN Reason: Per Protocol Last Titration: 08/29/18 13:59 Dose: Infused Albumin Human (Flexbumin 25% Inj) 50 mls @ 50 mls/hr IV.SIG Q12H [facility] Last Admin: 09/01/18 09:01 Dose: 50 mls/hr Aztreonam 2 gm/ Sodium (Chloride) 100 mls @ 200 mls/hr IV.SIG Q8H [facility] Last Infusion: 09/01/18 06:24 Dose: Infused Metronidazole/Sodium Chloride (Flagyl 500 Mg Inj) 100 mls @ 100 mls/hr IV.SIG Q8H [facility] Last Infusion: 09/01/18 07:59 Dose: Infused Amiodarone HCl 450 mg/ (Dextrose) 250 mls @ 33.33 mls/hr IV.CONT TITRATE PRN; Protocol PRN Reason: Per Protocol Last Titration: 09/01/18 07:59 Dose: 0.5 mg/min, 16.66 mls/hr Dopamine HCl 800 mg/ Sodium (Chloride) 520 mls @ 8.07 mls/hr IV.CONT TITRATE PRN; Protocol PRN Reason: See Protocol Last Titration: 08/31/18 23:00 Dose: Infused Phenylephrine HCl 80 mg/ (Sodium Chloride) 500 mls @ 15 mls/hr IV.CONT TITRATE PRN; Protocol PRN Reason: See prorocol Last Admin: 09/01/18 09:01 Dose: 300 mcg/min, 112.5 mls/hr Norepinephrine Bitartrate 4 mg (/ Sodium Chloride) 250 mls @ 7.5 mls/hr IV.SIG TITRATE PRN; Protocol PRN Reason: Per Protocol Last Admin: 09/01/18 09:39 Dose: 25 mcg/min, 93.75 mls/hr Dobutamine HCl 500 mg/ (Dextrose) 250 mls @ 5.17 mls/hr IV.CONT .Q24H [facility] Last Infusion: 09/01/18 07:59 Dose: 5 mcg/kg/min, 10.35 mls/hr Sodium Bicarbonate 150 meq/ (Sterile Water) 1,000 mls @ 150 mls/hr IV.CONT .Q6H40M [facility] Last Infusion: 09/01/18 07:59 Dose: 150 mls/hr Sodium Chloride (Ns Inj) 1,000 mls @ 0 mls/hr IV.SIG BOLUS [facility] Azithromycin 500 mg/ Sodium (Chloride) 250 mls @ 250 mls/hr IV.SIG Q24H [facility] Last Infusion: 09/01/18 04:00 Dose: Infused Fentanyl (Fentanyl 10 Mcg/Ml Premix Drip) 2,500 mcg in 250 mls @ 5 mls/hr IV.SIG TITRATE PRN; Protocol PRN Reason: Per Protocol Vancomycin HCl 500 mg/ Sodium (Chloride) 100 mls @ 200 mls/hr IV.SIG ONCE ONE Stop: 09/01/18 14:29 Latanoprost (Xalatan 0.005% Opth Drops) 1 drop EACH EYE QPM [facility] Last Admin: 08/31/18 17:51 Dose: 1 drop Levothyroxine Sodium (Synthroid) 75 mcg PO DAILY@0600 [facility] Last Admin: 09/01/18 06:48 Dose: Not Given Metoprolol Tartrate (Lopressor) 25 mg PO BID [facility] Last Admin: 09/01/18 00:33 Dose: Not Given Miscellaneous Medication () 1 each OROPHARYNG 0000,0400,1200,1600 [facility] Last Admin: 09/01/18 05:19 Dose: 1 each Morphine Sulfate (Morphine Inj) 4 mg IV.PUSH Q2H PRN PRN Reason: Pain6-10 Last Admin: 09/01/18 08:59 Dose: 4 mg Pharmacy Profile Note (Vancomycin Consult Pharmacy) 1 each OTHER UNSCH PRN PRN Reason: Pharmacy to dose Rivaroxaban (Xarelto) 15 mg PO QPM [facility] Last Admin: 08/31/18 17:44 Dose: 15 mg Sodium Chloride (Ns Flush) 2 ml IV.FLUSH BID [facility] Last Admin: 09/01/18 09:02 Dose: 2 ml Sodium Chloride (Ns Flush) 2 ml IV.FLUSH PRN PRN PRN Reason: FLUSH AFTER USING IV ACCESS Terbutaline Sulfate (Brethine Inj) 1 mg SQ UNSCH PRN PRN Reason: For Extravasation Physical Exam Vital signs: Vital Signs 08/31/18 14:00 08/31/18 15:00 08/31/18 16:00 Temperature Pulse Rate 90 90 93 H Respiratory Rate 20 Blood Pressure 105/57 L Pulse Oximetry 08/31/18 17:00 08/31/18 18:00 08/31/18 19:00 Temperature Pulse Rate 87 87 90 Respiratory Rate Blood Pressure Pulse Oximetry 08/31/18 20:00 08/31/18 20:45 08/31/18 21:00 Temperature 97.7 F Pulse Rate 95 H 97 H Respiratory Rate 22 17 Blood Pressure 90/41 L Pulse Oximetry 94 L 100 08/31/18 22:00 08/31/18 22:31 08/31/18 22:40 Temperature 97 F L Pulse Rate 113 H 112 H 116 H Respiratory Rate 18 18 Blood Pressure 112/71 Pulse Oximetry 08/31/18 22:50 08/31/18 23:00 08/31/18 23:10 Temperature Pulse Rate 108 H 110 H 104 H Respiratory Rate 18 11 L 0 L Blood Pressure 113/61 111/61 112/56 L Pulse Oximetry 08/31/18 23:20 08/31/18 23:30 08/31/18 23:40 Temperature Pulse Rate 105 H 98 H 104 H Respiratory Rate 23 16 0 L Blood Pressure 114/56 L 110/68 114/75 Pulse Oximetry 100 91 L 100 08/31/18 23:50 09/01/18 00:00 09/01/18 00:10 Temperature Pulse Rate 105 H 99 H 101 H Respiratory Rate 18 18 18 Blood Pressure 122/68 111/66 111/75 Pulse Oximetry 100 98 96 09/01/18 00:20 09/01/18 00:30 09/01/18 00:40 Temperature Pulse Rate 103 H 97 H 97 H Respiratory Rate 18 18 18 Blood Pressure 114/64 115/58 L 117/66 Pulse Oximetry 98 100 100 09/01/18 00:50 09/01/18 01:00 09/01/18 01:10 Temperature Pulse Rate 95 H 88 88 Respiratory Rate 18 18 18 Blood Pressure 112/62 112/59 L 114/68 Pulse Oximetry 99 100 100 09/01/18 01:20 09/01/18 01:30 09/01/18 01:47 Temperature Pulse Rate 104 H 100 H 107 H Respiratory Rate 18 18 25 H Blood Pressure 118/56 L 121/60 124/59 L Pulse Oximetry 100 100 100 09/01/18 01:50 09/01/18 02:00 09/01/18 02:05 Temperature Pulse Rate 95 H 98 H 98 H Respiratory Rate 25 H 24 19 Blood Pressure 123/62 108/58 L 106/60 Pulse Oximetry 100 100 100 09/01/18 02:10 09/01/18 02:16 09/01/18 02:20 Temperature Pulse Rate 93 H 90 Respiratory Rate 18 18 Blood Pressure 101/68 109/58 L Pulse Oximetry 100 100 100 09/01/18 02:30 09/01/18 02:40 09/01/18 02:50 Temperature Pulse Rate 97 H 95 H 99 H Respiratory Rate 18 18 18 Blood Pressure 114/58 L 123/59 L 117/58 L Pulse Oximetry 100 100 100 09/01/18 03:00 09/01/18 03:10 09/01/18 03:20 Temperature Pulse Rate 96 H 91 H 91 H Respiratory Rate 18 19 19 Blood Pressure 119/57 L 94/45 L 86/49 L Pulse Oximetry 100 99 96 09/01/18 03:30 09/01/18 03:40 09/01/18 03:54 Temperature Pulse Rate 97 H 88 93 H Respiratory Rate 18 23 19 Blood Pressure 91/50 L 84/52 L 79/52 L Pulse Oximetry 99 92 L 99 09/01/18 04:00 09/01/18 04:03 09/01/18 04:10 Temperature Pulse Rate 98 H 97 H 88 Respiratory Rate 19 19 21 Blood Pressure 73/55 L 79/58 L Pulse Oximetry 100 96 95 09/01/18 04:20 09/01/18 04:30 09/01/18 04:48 Temperature Pulse Rate 91 H 98 H 84 Respiratory Rate 19 20 19 Blood Pressure 75/54 L 80/56 L Pulse Oximetry 100 99 99 09/01/18 05:01 09/01/18 05:05 09/01/18 05:55 Temperature Pulse Rate 89 96 H 82 Respiratory Rate 22 18 21 Blood Pressure 99/67 L 99/67 L 102/57 L Pulse Oximetry 96 98 09/01/18 08:16 09/01/18 10:21 09/01/18 11:07 Temperature Pulse Rate 103 H 106 H Respiratory Rate 26 H 22 22 Blood Pressure Pulse Oximetry 98 99 Intake & Output 08/31/18 09/01/18 09/01/18 18:59 06:59 18:59 Intake Total 50 / 50 4624 / 4624 850 / 850 Balance 50 / 50 4624 / 4624 850 / 850 Weight 76.7 kg Intake: IV 50 / 50 4110 / 4110 850 / 850 Sodium Bicarbonate 8.4% Inj 50 100 / 100 ML @ 0 mls/hr .ROUTE .STK-MED ONE Rx#:[id number] Cordarone Inj 450 MG In D5W Inj 250 / 250 241 ML @ 1 MG/MIN 33.33 mls/hr IV.CONT TITRATE PRN Rx#: [id number] DOPamine 400 MG/250 ML Premix 160 / 160 400 mg In 250 ml @ 0 mls/hr IV. CONT .STK-MED ONE Rx#:[id number] Intropin Inj 800 MG In NS Inj 40 / 40 500 ML @ 3 MCG/KG/MIN 8.07 mls/ hr IV.CONT TITRATE PRN Rx#: [id number] Neosynephrine Inj 80 MG In NS 1000 / 1000 500 / 500 Inj 492 ML @ 40 MCG/MIN 15 mls/ hr IV.CONT TITRATE PRN Rx#: [id number] Sodium Bicarbonate 8.4% Inj 150 1000 / 1000 MEQ In Sterile Water for Inj 850 ML @ 150 mls/hr IV.CONT . Q6H40M [facility] Rx#:[id number] Flexbumin 25% Inj 50 ML @ 50 50 / 50 50 / 50 mls/hr IV.SIG Q12H [facility] Rx#: [id number] Cordarone Inj 150 MG In D5W Inj 100 / 100 97 ML @ 100 mls/hr IV.SIG ONCE ONE Rx#:[id number] Azithromycin Inj 500 MG In NS 250 / 250 Inj 250 ML @ 250 mls/hr IV.SIG Q24H [facility] Rx#:[id number] Azactam Inj 2 GM In NS Inj 100 200 / 200 ML @ 200 mls/hr IV.SIG Q8H [facility] Rx#:[id number] Calcium Chloride Inj 1 GM In 110 / 110 D5W Inj 100 ML @ 110 mls/hr IV. SIG ONCE ONE Rx#:[id number] Levophed Inj 4 MG In NS Inj 246 500 / 500 250 / 250 ML @ 2 MCG/MIN 7.5 mls/hr IV. SIG TITRATE PRN Rx#:[id number] NS Inj 250 ML @ 50 mls/hr IV. 0 / 0 SIG ONCE ONE Rx#:[id number] Vancomycin Inj 1,000 MG In NS 250 / 250 Inj 250 ML @ 250 mls/hr IV.SIG ONCE ONE Rx#:[id number] Flagyl 500 MG Inj 100 ML @ 100 100 / 100 100 / 100 mls/hr IV.SIG Q8H [facility] Rx#: [id number] Intake (Blood Product) Amt 514 / 514 Plasma Thawed 5 Day Acda Unit 219 / 219 [id number] Plasma Thawed 5 Day Cp2d Unit 295 / 295 [id number] Plasma Thawed 5 Day Cp2d Unit 0 / 0 [id number] Other: Date of Last Bowel Movement 08/29/18 - Constitutional moderate distress - Routine HEENT Exam Head: Present: normocephalic Eye: Present: PERRL ENT: Present: mucous membranes moist - Routine Neck Exam Present: supple - Routine Respiratory Exam Present: patient mechanically ventilated, rhonchi, diminished air movement Comments: Rhonchi throughout upper and lower lobes, bilateral. - Routine Cardiovascular Exam Present: S1, S2, murmur, tachycardia, irregular rhythm - Routine Abdominal Exam Present: normoactive bowel sounds - Routine Extremities Exam Present: pulses intact, normal capillary refill. Absent: cyanosis, clubbing, edema - Routine Skin Exam Present: intact - Routine Neurological Exam intubated, moving all extremities. - Detailed Neurological Exam: Coma Scale Eye Opening: To sound Verbal Response: None Motor Response: None Ruth Coma Scale Total: 5 - Routine Psychiatric Exam Present: unable to assess - Urinary Catheter Management Indwelling Urethral Catheter Cath placed during this visit: yes Reason for continuing: Hourly intake/output Insertion date: 08/31/18 Insertion time: 22:00 Results 09/01/18 04:15 09/01/18 17:20 Cardiac Enzymes 08/31/18 08/31/18 08/31/18 Range/Units 04:06 04:06 21:45 AST 444 H 41467 H (15-37) U/L Troponin I (0.02-0.05) ng/mL B-Natriuretic Peptide 3942 H (0-100) pg/mL 08/31/18 09/01/18 Range/Units 21:45 04:15 AST 36887 H (15-37) U/L Troponin I 0.12 H (0.02-0.05) ng/mL B-Natriuretic Peptide (0-100) pg/mL Coagulation 08/31/18 09/01/18 09/01/18 Range/Units 04:06 01:00 04:15 PT 73.6 H D 89.8 H D (9.8-11.6) sec APTT (24.3-30.1) sec B-Natriuretic Peptide 3942 H (0-100) pg/mL 09/01/18 09/01/18 Range/Units 09:28 09:28 PT 55.9 H D (9.8-11.6) sec APTT 44.1 H (24.3-30.1) sec B-Natriuretic Peptide (0-100) pg/mL CBC 08/31/18 08/31/18 09/01/18 Range/Units 04:06 21:45 04:15 WBC 11.7 H 16.4 H 18.0 H (4.0-11.0) th/mm3 RBC 4.90 4.00 L 3.90 L (4.50-5.90) mil/mm3 Hgb 14.8 11.9 L D 11.8 L (13.0-17.0) gm/dL Hct 46.0 38.0 L 37.9 L (39.0-51.0) % Plt Count 332 263 248 (150-450) th/mm3 Neut # (Auto) 14.2 H 15.6 H (1.8-7.7) th/mm3 Lymph # (Auto) 0.6 L 0.9 L (1.0-4.8) th/mm3 Chambers # (Auto) 1.5 H 1.3 H (0.0-0.9) th/mm3 Eos # (Auto) 0.0 0.0 (0.0-0.4) th/mm3 Baso # (Auto) 0.0 0.0 (0.0-0.2) th/mm3 Comprehensive Metabolic Panel 08/31/18 08/31/18 09/01/18 Range/Units 04:06 21:45 04:15 Sodium 139 144 139 (136-145) meq/L Potassium 5.4 H D 5.5 H 4.8 (3.5-5.1) meq/L Chloride 106 103 102 (98-107) meq/L Carbon Dioxide 17.1 L 15.1 L 13.5 L (21.0-32.0) meq/L BUN 36 H 50 H 49 H (7-18) mg/dL Creatinine 1.89 H 3.26 H 3.14 H (0.60-1.30) mg/dL Calcium 9.0 7.7 L D 7.2 L* (8.5-10.1) mg/dL AST 444 H 46662 H 52303 H (15-37) U/L ALT 477 H 4298 H 5706 H (12-78) U/L Alkaline Phosphatase 63 57 62 (45-117) U/L Total Protein 7.7 5.9 L D 5.6 L (6.4-8.2) g/dL Albumin 3.4 2.7 L D 2.7 L (3.4-5.0) g/dL Intake and Output 08/31/18 09/01/18 09/01/18 22:59 06:59 14:59 Intake Total 4624 / 4624 850 / 850 Balance 4624 / 4624 850 / 850 Intake: IV 4110 / 4110 850 / 850 Sodium Bicarbonate 8.4% Inj 50 100 / 100 ML @ 0 mls/hr .ROUTE .STK-MED ONE Rx#:[id number] Cordarone Inj 450 MG In D5W Inj 250 / 250 241 ML @ 1 MG/MIN 33.33 mls/hr IV.CONT TITRATE PRN Rx#: [id number] DOPamine 400 MG/250 ML Premix 160 / 160 400 mg In 250 ml @ 0 mls/hr IV. CONT .STK-MED ONE Rx#:[id number] Intropin Inj 800 MG In NS Inj 40 / 40 500 ML @ 3 MCG/KG/MIN 8.07 mls/ hr IV.CONT TITRATE PRN Rx#: [id number] Neosynephrine Inj 80 MG In NS 1000 / 1000 500 / 500 Inj 492 ML @ 40 MCG/MIN 15 mls/ hr IV.CONT TITRATE PRN Rx#: [id number] Sodium Bicarbonate 8.4% Inj 150 1000 / 1000 MEQ In Sterile Water for Inj 850 ML @ 150 mls/hr IV.CONT . Q6H40M [facility] Rx#:[id number] Flexbumin 25% Inj 50 ML @ 50 50 / 50 mls/hr IV.SIG Q12H [facility] Rx#: [id number] Cordarone Inj 150 MG In D5W Inj 100 / 100 97 ML @ 100 mls/hr IV.SIG ONCE ONE Rx#:[id number] Azithromycin Inj 500 MG In NS 250 / 250 Inj 250 ML @ 250 mls/hr IV.SIG Q24H [facility] Rx#:[id number] Azactam Inj 2 GM In NS Inj 100 200 / 200 ML @ 200 mls/hr IV.SIG Q8H [facility] Rx#:[id number] Calcium Chloride Inj 1 GM In 110 / 110 D5W Inj 100 ML @ 110 mls/hr IV. SIG ONCE ONE Rx#:[id number] Levophed Inj 4 MG In NS Inj 246 500 / 500 250 / 250 ML @ 2 MCG/MIN 7.5 mls/hr IV. SIG TITRATE PRN Rx#:[id number] NS Inj 250 ML @ 50 mls/hr IV. 0 / 0 SIG ONCE ONE Rx#:[id number] Vancomycin Inj 1,000 MG In NS 250 / 250 Inj 250 ML @ 250 mls/hr IV.SIG ONCE ONE Rx#:[id number] Flagyl 500 MG Inj 100 ML @ 100 100 / 100 100 / 100 mls/hr IV.SIG Q8H [facility] Rx#: [id number] Intake (Blood Product) Amt 514 / 514 Plasma Thawed 5 Day Acda Unit 219 / 219 [id number] Plasma Thawed 5 Day Cp2d Unit 295 / 295 [id number] Plasma Thawed 5 Day Cp2d Unit 0 / 0 [id number] Other: Date of Last Bowel Movement 08/29/18 Weight 76.7 kg - Imaging and Cardiology Imaging: Impressions Chest X-Ray 08/31/18 00:00 CONCLUSION: Mild cardiomegaly. No acute findings. Stable compared to prior. Chest X-Ray 08/31/18 20:47 CONCLUSION: 1. ETT in good position. Right subclavian central line in good position without pneumothorax. 2. Developing right lower lung zone ill-defined airspace disease. Abdomen/Pelvis CT 09/01/18 00:00 CONCLUSION: 1. Trace ascites, nonspecific. Also mild body wall edema. No organized or drainable fluid. 2. Diverticulosis of the sigmoid colon. No diverticulitis or other acute inflammatory changes. 3. Atherosclerosis of the aorta. Chest CT 09/01/18 00:00 CONCLUSION: 1. Bilateral pneumonia, especially right upper lobe. 2. Small bilateral pleural effusions; dependent/compressive atelectasis of both lower lobes. 3. Panchamber enlargement of the heart. Head CT 09/01/18 00:00 CONCLUSION: 1. No acute intracranial abnormality demonstrated. 2. Atrophy and chronic periventricular white matter changes. . Chest X-Ray 09/01/18 06:00 CONCLUSION: No significant change. Assessment and Plan - Assessment (1) Respiratory failure Code(s): J96.90 - Respiratory failure, unspecified, unspecified whether with hypoxia or hypercapnia Status: Acute (2) Cardiomyopathy Code(s): I42.9 - Cardiomyopathy, unspecified Status: Chronic (3) Atrial fibrillation Code(s): I48.91 - Unspecified atrial fibrillation Status: Chronic (4) V-tach Code(s): I47.2 - Ventricular tachycardia Status: Chronic (5) CAD (coronary artery disease) of artery bypass graft Code(s): I25.810 - Atherosclerosis of coronary artery bypass graft(s) without angina pectoris Status: Chronic (6) Nutrition, metabolism, and development symptoms Code(s): R63.8 - Other symptoms and signs concerning food and fluid intake Status: Acute (7) Hypothyroidism Code(s): E03.9 - Hypothyroidism, unspecified Status: Chronic (8) Atrial fibrillation with rapid ventricular response Code(s): I48.91 - Unspecified atrial fibrillation Status: Acute - Plan Patient decompensated, was intubated and placed on mechanical ventilation. Patient placed on phenylephrine, norepinephrine and bicarb gtt for hemodynamic support and acidosis. He stays in a fib with RVR. We recommend to proceed with cardioversion. Palliative care evaluation in progress. Discussed with patients current treatment plan, she verbalized understanding. Patient seen and evaluated by Dr. Juárez who participated in care, management and decision making. - Attending Attestation Patient seen and examined. I reviewed and agree with the evaluation and plan as presented. Continue ICU care. Recommend DC cardioversion of a fib.
[2018-09-01] MEDS ORDERED: Dextrose 50% in Water 50 ML Vial IV.PUSH PRN (13:52)
[2018-09-01] MEDS ORDERED: Vancomycin Inj 500 MG in Sodium Chlor 0.9% Inj 100 ML IV.SIG ONE (14:00)
[2018-09-01] MEDS ORDERED: Vasopressin Inj 40 UNIT in Dextrose 5% in Water Inj 98 ML IV.CONT SCH ×2 (14:00)
[2018-09-01] MEDS ORDERED: Midazolam Inj 5 MG/ML 1 ML Vial ONE (14:43)
[2018-09-01] MEDS ORDERED: fentaNYL Citrate Inj 250 MCG/5 ML Ampul IV.PUSH STA (14:43)
[2018-09-01] MEDS ORDERED: Calcium Chloride Inj 1 GM in Dextrose 5% in Water Inj 100 ML IV.SIG ONE ×2 (15:00)
--- NOTE | 2018-09-01 15:03 | ECG ---
Date Performed: 08/31/2018 Time Performed: 23:28:22 PTAGE: 83 years EKG: Possible atrial flutter with rapid ventricular response. Left axis deviation Incomplete LBB B Possible anteroseptal infarct - age undetermined Possible inferior infarct - age undetermined Later al ST-T changes may be due to myocardial ischemia Low QRS voltages in limb leads Since the previous t racing, no significant change noted Abnormal ECG PREVIOUS TRACING : 08/28/2018 13.55 DOCTOR: Luke Lazcano Interpretating Date/Time 09/01/2018 14:52:39
--- NOTE | 2018-09-01 15:30 | P.PCN ---
Date of procedure: 09/01/18 Pre-op diagnosis: Afib, Cardiomyopathy, shock, THERESA, lactic acidosis Post-op diagnosis: same Procedure: Cardioversion: Indication: Afib with hemodynamic instability Description: After ensuring adequate sedation with Versed 2mg IV, Fentanyl 200mcg IV electrical cardioversion performed using 100 joules synchronized DC shock x2 (patient initially converted to RSR after 1st shock but went back into Afib so was cardioverted a second time). Remaining in sinus rhythm after 2nd shock. Increased Amiodarone to 1mg/min and decreased dobutamine to 2.5mcg/kg/ min. Levophed running at 5mcg/min was turned off. Remains on Vasopressin low dose. Completing Calcium chloride infusion. Anesthesia: other Surgeon: Demetrius Schilling Estimated blood loss (mL): 0 Pathology: none sent Condition: critical Disposition: ICU
--- NOTE | 2018-09-01 16:37 | P.PNCC ---
Subjective Subjective Remarks/Hospital Course: 08/31: Patient is 83-year-old male with a history of A. fib on Xarelto, cardiomyopathy with ejection fraction 17%, moderate MR, moderate AI, hypertension, hyperlipidemia, ventricular tachycardia history with, ICD, COPD who was admitted to the [facility] on 08/28/2018 for worsening shortness of breath. He was admitted with a diagnosis of COPD, atrial fibrillation with RVR and cardiology was consulted. I am unable to locate echo report but according to [facility] admit note Echo 10/2017, EF=17%, LVH, biatrial enlargement,, Mod MR, Mod AI, Mod TR, aortic cusp thickening. Patient has chronic A. fib for which he takes Xarelto, metoprolol, and amiodarone. This was continued and patient was also placed on Cardizem infusion for rate control. Plan was for EMILEE guided cardioversion tomorrow Patient was noted to be increasingly short of breath over the day. He received some Ativan around 10 AM today for presumed anxiety. According to bedside RN patient had labored breathing since the beginning of her shift at around 7 and even prior. Patient became increasingly lethargic with worsening hypoxia shortness of breath. Stat ABG showed 7.07/29/58 with oxygen saturation of 78 and base excess -20.5. A Halicat was called at about 8 pm and patient was moved to the [facility] [place] I immediately evaluated the patient. Patient was barely responsive tachypneic. Blood pressure was not recordable but pulse was palpable. I ordered stat transfusion of 1 L normal saline bolus, 2 Amps of bicarb to at least partially corrective acidosis prior to intubation and also started Levophed infusion peripherally. After systolic blood pressure was in 60s I proceeded with endotracheal intubation due to hypoxia and lack of airway protection. Patient was intubated and placed on mechanical ventilation. Patient remained in atrial fibrillation RVR, the shock appears to be severe cardiogenic shock worsened by severe acidosis. Levophed was rapidly increased to 40 mcg/min, additional pressors added with Tien-Synephrine and dopamine. I emergently placed a right subclavian central line and also right femoral artery line. Once arterial line is placed and flow Trac monitoring is initiated. I have given digoxin 0.5 mg IV x1 for rate control, start amiodarone bolus and infusion for rate control. Start dobutamine infusion as the patient has an EF of 17%. Duque cultures will be sent a Escamilla catheter will be inserted as the patient is almost anuric. Broad-spectrum antibiotics with Azactam Flagyl and vancomycin. Chest x-ray shows persistent left lower lobe and new right lower lobe infiltrates. This appears to be a combination of severe cardiogenic and septic shock and prognosis is guarded at this time 09/01: Remains orally intubated on mechanical ventilation. This morning at the time of my evaluation patient was easily arousable following commands. He was on phenylephrine/Levophed/dobutamine for pressor support/inotropic support as well as amiodarone gtt. Over the course of the day his phenylephrine was titrated off and Levophed was decreased to 5 mics per minute after starting vasopressin gtt 0.04 units/min. After discussion with Dr. felix proceeded with electrical cardioversion to convert him out of his A. fib. Patient was successfully cardioverted to sinus rhythm. He has been essentially anuric. Objective Vital Signs / I&O: Vital Signs 08/31/18 17:00 08/31/18 18:00 08/31/18 19:00 Temperature Pulse Rate 87 87 90 Respiratory Rate Blood Pressure Pulse Oximetry 08/31/18 20:00 08/31/18 20:45 08/31/18 21:00 Temperature 97.7 F Pulse Rate 95 H 97 H Respiratory Rate 22 17 Blood Pressure 90/41 L Pulse Oximetry 94 L 100 08/31/18 22:00 08/31/18 22:31 08/31/18 22:40 Temperature 97 F L Pulse Rate 113 H 112 H 116 H Respiratory Rate 18 18 Blood Pressure 112/71 Pulse Oximetry 08/31/18 22:50 08/31/18 23:00 08/31/18 23:10 Temperature Pulse Rate 108 H 110 H 104 H Respiratory Rate 18 11 L 0 L Blood Pressure 113/61 111/61 112/56 L Pulse Oximetry 08/31/18 23:20 08/31/18 23:30 08/31/18 23:40 Temperature Pulse Rate 105 H 98 H 104 H Respiratory Rate 23 16 0 L Blood Pressure 114/56 L 110/68 114/75 Pulse Oximetry 100 91 L 100 08/31/18 23:50 09/01/18 00:00 09/01/18 00:10 Temperature Pulse Rate 105 H 99 H 101 H Respiratory Rate 18 18 18 Blood Pressure 122/68 111/66 111/75 Pulse Oximetry 100 98 96 09/01/18 00:20 09/01/18 00:30 09/01/18 00:40 Temperature Pulse Rate 103 H 97 H 97 H Respiratory Rate 18 18 18 Blood Pressure 114/64 115/58 L 117/66 Pulse Oximetry 98 100 100 09/01/18 00:50 09/01/18 01:00 09/01/18 01:10 Temperature Pulse Rate 95 H 88 88 Respiratory Rate 18 18 18 Blood Pressure 112/62 112/59 L 114/68 Pulse Oximetry 99 100 100 09/01/18 01:20 09/01/18 01:30 09/01/18 01:47 Temperature Pulse Rate 104 H 100 H 107 H Respiratory Rate 18 18 25 H Blood Pressure 118/56 L 121/60 124/59 L Pulse Oximetry 100 100 100 09/01/18 01:50 09/01/18 02:00 09/01/18 02:05 Temperature Pulse Rate 95 H 98 H 98 H Respiratory Rate 25 H 24 19 Blood Pressure 123/62 108/58 L 106/60 Pulse Oximetry 100 100 100 09/01/18 02:10 09/01/18 02:16 09/01/18 02:20 Temperature Pulse Rate 93 H 90 Respiratory Rate 18 18 Blood Pressure 101/68 109/58 L Pulse Oximetry 100 100 100 09/01/18 02:30 09/01/18 02:40 09/01/18 02:50 Temperature Pulse Rate 97 H 95 H 99 H Respiratory Rate 18 18 18 Blood Pressure 114/58 L 123/59 L 117/58 L Pulse Oximetry 100 100 100 09/01/18 03:00 09/01/18 03:10 09/01/18 03:20 Temperature Pulse Rate 96 H 91 H 91 H Respiratory Rate 18 19 19 Blood Pressure 119/57 L 94/45 L 86/49 L Pulse Oximetry 100 99 96 09/01/18 03:30 09/01/18 03:40 09/01/18 03:54 Temperature Pulse Rate 97 H 88 93 H Respiratory Rate 18 23 19 Blood Pressure 91/50 L 84/52 L 79/52 L Pulse Oximetry 99 92 L 99 09/01/18 04:00 09/01/18 04:03 09/01/18 04:10 Temperature Pulse Rate 98 H 97 H 88 Respiratory Rate 19 19 21 Blood Pressure 73/55 L 79/58 L Pulse Oximetry 100 96 95 09/01/18 04:20 09/01/18 04:30 09/01/18 04:48 Temperature Pulse Rate 91 H 98 H 84 Respiratory Rate 19 20 19 Blood Pressure 75/54 L 80/56 L Pulse Oximetry 100 99 99 09/01/18 05:01 09/01/18 05:05 09/01/18 05:55 Temperature Pulse Rate 89 96 H 82 Respiratory Rate 22 18 21 Blood Pressure 99/67 L 99/67 L 102/57 L Pulse Oximetry 96 98 09/01/18 08:16 09/01/18 10:21 09/01/18 11:07 Temperature Pulse Rate 103 H 106 H Respiratory Rate 26 H 22 22 Blood Pressure Pulse Oximetry 98 99 09/01/18 13:09 Temperature Pulse Rate Respiratory Rate 22 Blood Pressure Pulse Oximetry 99 Intake & Output 08/31/18 09/01/18 09/01/18 18:59 06:59 18:59 Intake Total 50 / 50 4624 / 4624 2099 Balance 50 / 50 4624 / 4624 2099 Weight 76.7 kg Intake: IV 50 / 50 4110 / 4110 2099 Sodium Bicarbonate 8.4% Inj 50 100 / 100 ML @ 0 mls/hr .ROUTE .STK-MED ONE Rx#:[id number] Cordarone Inj 450 MG In D5W Inj 250 / 250 241 ML @ 1 MG/MIN 33.33 mls/hr IV.CONT TITRATE PRN Rx#: [id number] DOPamine 400 MG/250 ML Premix 160 / 160 400 mg In 250 ml @ 0 mls/hr IV. CONT .STK-MED ONE Rx#:[id number] Intropin Inj 800 MG In NS Inj 40 / 40 500 ML @ 3 MCG/KG/MIN 8.07 mls/ hr IV.CONT TITRATE PRN Rx#: [id number] Neosynephrine Inj 80 MG In NS 1000 / 1000 500 / 500 Inj 492 ML @ 40 MCG/MIN 15 mls/ hr IV.CONT TITRATE PRN Rx#: [id number] Sodium Bicarbonate 8.4% Inj 150 1000 / 1000 1000 / 1000 MEQ In Sterile Water for Inj 850 ML @ 150 mls/hr IV.CONT . Q6H40M [facility] Rx#:[id number] Flexbumin 25% Inj 50 ML @ 50 50 / 50 50 / 50 mls/hr IV.SIG Q12H [facility] Rx#: [id number] Cordarone Inj 150 MG In D5W Inj 100 / 100 97 ML @ 100 mls/hr IV.SIG ONCE ONE Rx#:[id number] Azithromycin Inj 500 MG In NS 250 / 250 Inj 250 ML @ 250 mls/hr IV.SIG Q24H [facility] Rx#:[id number] Azactam Inj 2 GM In NS Inj 100 200 / 200 ML @ 200 mls/hr IV.SIG Q8H [facility] Rx#:[id number] Calcium Chloride Inj 1 GM In 110 / 110 D5W Inj 100 ML @ 110 mls/hr IV. SIG ONCE ONE Rx#:[id number] Levophed Inj 4 MG In NS Inj 246 500 / 500 500 / 500 ML @ 2 MCG/MIN 7.5 mls/hr IV. SIG TITRATE PRN Rx#:[id number] NS Inj 250 ML @ 50 mls/hr IV. 0 / 0 SIG ONCE ONE Rx#:[id number] Vancomycin Inj 1,000 MG In NS 250 / 250 Inj 250 ML @ 250 mls/hr IV.SIG ONCE ONE Rx#:[id number] Flagyl 500 MG Inj 100 ML @ 100 100 / 100 100 / 100 mls/hr IV.SIG Q8H [facility] Rx#: [id number] Intake (Blood Product) Amt 514 / 514 Plasma Thawed 5 Day Acda Unit 219 / 219 [id number] Plasma Thawed 5 Day Cp2d Unit 295 / 295 [id number] Plasma Thawed 5 Day Cp2d Unit 0 / 0 [id number] Other: Date of Last Bowel Movement 08/29/18 Result Diagrams: 09/01/18 04:15 09/01/18 04:15 Other Results: Laboratory Results - last 24 hr 08/31/18 08/31/18 08/31/18 17:49 20:31 20:55 WBC RBC Hgb Hct MCV MCH MCHC RDW Plt Count MPV Prelim Diff (Auto) Neut % (Auto) Lymph % (Auto) Treasure % (Auto) Eos % (Auto) Baso % (Auto) Neut # (Auto) Lymph # (Auto) Treasure # (Auto) Eos # (Auto) Baso # (Auto) WBC Differential Diff Scan Differential Comment Toxic Granulation Toxic Vacuolation Platelet Estimate Platelet Morphology Acanthocytes (Spur) PT INR APTT Fibrinogen Puncture Site Right femoral Patient Temperature 98.6 O2 Saturation 78 L* ABG pH 7.09 L* ABG pCO2 26 L ABG pO2 58 L* ABG HCO3 7 L* ABG O2 Content 14.5 ABG Base Excess -20.5 L ABG Methemoglobin 1.6 Parveen Test Present Hemoglobin 13.2 Carboxyhemoglobin 0.2 O2 Delivery Device Nasal cannula Liter Flow 3.00 Vent Setting Inspired O2 Critical Value Yes Sodium Potassium Chloride Carbon Dioxide Anion Gap BUN Creatinine Estimated GFR POC Glucose 75 52 L Random Glucose Lactic Acid Calcium Prot Corrected Calcium Magnesium Total Bilirubin AST ALT Alkaline Phosphatase Troponin I Total Protein Albumin Urine Color Urine Clarity Urine pH Ur Specific Strawberry Urine Protein Urine Glucose (UA) Urine Ketones Urine Occult Blood Urine Nitrate Urine Bilirubin Urine Urobilinogen Ur Leukocyte Esterase Urine RBC Urine WBC Ur Squamous Epith Cells Hyaline Casts Urine Mucus Micro UA Comment Ur Microscopic Review Urine Culture Comments Nasal Screen MRSA (PCR) Blood Type Blood Bank Comment 08/31/18 08/31/18 08/31/18 21:06 21:30 21:45 WBC RBC Hgb Hct MCV MCH MCHC RDW Plt Count MPV Prelim Diff (Auto) Neut % (Auto) Lymph % (Auto) Treasure % (Auto) Eos % (Auto) Baso % (Auto) Neut # (Auto) Lymph # (Auto) Treasure # (Auto) Eos # (Auto) Baso # (Auto) WBC Differential Diff Scan Differential Comment Toxic Granulation Toxic Vacuolation Platelet Estimate Platelet Morphology Acanthocytes (Spur) PT INR APTT Fibrinogen Puncture Site Art line Patient Temperature 98.6 O2 Saturation 97 ABG pH 7.24 L* ABG pCO2 32 L ABG pO2 448 H ABG HCO3 32 H ABG O2 Content 17.6 ABG Base Excess 13.0 H ABG Methemoglobin 1.7 Parvene Test Present Hemoglobin 12.0 Carboxyhemoglobin 0.2 O2 Delivery Device Ventilator Liter Flow Vent Setting 16/550/+5 Inspired O2 0 Critical Value Yes Sodium Potassium Chloride Carbon Dioxide Anion Gap BUN Creatinine Estimated GFR POC Glucose 194 H Random Glucose Lactic Acid 15.7 H* Calcium Prot Corrected Calcium Magnesium Total Bilirubin AST ALT Alkaline Phosphatase Troponin I Total Protein Albumin Urine Color Urine Clarity Urine pH Ur Specific Strawberry Urine Protein Urine Glucose (UA) Urine Ketones Urine Occult Blood Urine Nitrate Urine Bilirubin Urine Urobilinogen Ur Leukocyte Esterase Urine RBC Urine WBC Ur Squamous Epith Cells Hyaline Casts Urine Mucus Micro UA Comment Ur Microscopic Review Urine Culture Comments Nasal Screen MRSA (PCR) Blood Type Blood Bank Comment 08/31/18 08/31/18 08/31/18 21:45 21:45 21:45 WBC 16.4 H RBC 4.00 L Hgb 11.9 L D Hct 38.0 L MCV 95.1 MCH 29.9 MCHC 31.4 L RDW 14.8 Plt Count 263 MPV 9.2 Prelim Diff (Auto) Slide review pending Neut % (Auto) 87.0 H Lymph % (Auto) 3.8 L Treasure % (Auto) 9.0 H Eos % (Auto) 0.1 Baso % (Auto) 0.1 Neut # (Auto) 14.2 H Lymph # (Auto) 0.6 L Treasure # (Auto) 1.5 H Eos # (Auto) 0.0 Baso # (Auto) 0.0 WBC Differential . Diff Scan Auto diff confirmed Differential Comment . Toxic Granulation Toxic Vacuolation Platelet Estimate Normal Platelet Morphology Normal Acanthocytes (Spur) PT INR APTT Fibrinogen Puncture Site Patient Temperature O2 Saturation ABG pH ABG pCO2 ABG pO2 ABG HCO3 ABG O2 Content ABG Base Excess ABG Methemoglobin Parveen Test Hemoglobin Carboxyhemoglobin O2 Delivery Device Liter Flow Vent Setting Inspired O2 Critical Value Sodium 144 Potassium 5.5 H Chloride 103 Carbon Dioxide 15.1 L Anion Gap 26 H BUN 50 H Creatinine 3.26 H Estimated GFR 18 L POC Glucose Random Glucose 217 H Lactic Acid Calcium 7.7 L D Prot Corrected Calcium Magnesium Total Bilirubin 2.6 H AST 05707 H ALT 4298 H Alkaline Phosphatase 57 Troponin I 0.12 H Total Protein 5.9 L D Albumin 2.7 L D Urine Color Urine Clarity Urine pH Ur Specific Strawberry Urine Protein Urine Glucose (UA) Urine Ketones Urine Occult Blood Urine Nitrate Urine Bilirubin Urine Urobilinogen Ur Leukocyte Esterase Urine RBC Urine WBC Ur Squamous Epith Cells Hyaline Casts Urine Mucus Micro UA Comment Ur Microscopic Review Urine Culture Comments Nasal Screen MRSA (PCR) Blood Type Blood Bank Comment 08/31/18 08/31/18 09/01/18 21:45 23:01 00:05 WBC RBC Hgb Hct MCV MCH MCHC RDW Plt Count MPV Prelim Diff (Auto) Neut % (Auto) Lymph % (Auto) Treasure % (Auto) Eos % (Auto) Baso % (Auto) Neut # (Auto) Lymph # (Auto) Treasure # (Auto) Eos # (Auto) Baso # (Auto) WBC Differential Diff Scan Differential Comment Toxic Granulation Toxic Vacuolation Platelet Estimate Platelet Morphology Acanthocytes (Spur) PT INR APTT Fibrinogen Puncture Site Patient Temperature O2 Saturation ABG pH ABG pCO2 ABG pO2 ABG HCO3 ABG O2 Content ABG Base Excess ABG Methemoglobin Parveen Test Hemoglobin Carboxyhemoglobin O2 Delivery Device Liter Flow Vent Setting Inspired O2 Critical Value Sodium Potassium Chloride Carbon Dioxide Anion Gap BUN Creatinine Estimated GFR POC Glucose 191 H Random Glucose Lactic Acid Calcium Prot Corrected Calcium Magnesium Total Bilirubin AST ALT Alkaline Phosphatase Troponin I Total Protein Albumin Urine Color Yellow Urine Clarity Hazy H Urine pH 5.0 Ur Specific Strawberry 1.011 Urine Protein Negative Urine Glucose (UA) Negative Urine Ketones Negative Urine Occult Blood Moderate H Urine Nitrate Negative Urine Bilirubin Negative Urine Urobilinogen 2.0 H Ur Leukocyte Esterase Negative Urine RBC 3 Urine WBC 3 Ur Squamous Epith Cells <1 Hyaline Casts 1 Urine Mucus Few H Micro UA Comment Cath-culture not ind Ur Microscopic Review Not Reportable Urine Culture Comments Cath-cult not ind Nasal Screen MRSA (PCR) Not detected Blood Type Blood Bank Comment 09/01/18 09/01/18 09/01/18 00:15 01:00 02:25 WBC RBC Hgb Hct MCV MCH MCHC RDW Plt Count MPV Prelim Diff (Auto) Neut % (Auto) Lymph % (Auto) Treasure % (Auto) Eos % (Auto) Baso % (Auto) Neut # (Auto) Lymph # (Auto) Treasure # (Auto) Eos # (Auto) Baso # (Auto) WBC Differential Diff Scan Differential Comment Toxic Granulation Toxic Vacuolation Platelet Estimate Platelet Morphology Acanthocytes (Spur) PT 73.6 H D INR 7.4 H* APTT Fibrinogen Puncture Site Patient Temperature O2 Saturation ABG pH ABG pCO2 ABG pO2 ABG HCO3 ABG O2 Content ABG Base Excess ABG Methemoglobin Parveen Test Hemoglobin Carboxyhemoglobin O2 Delivery Device Liter Flow Vent Setting Inspired O2 Critical Value Sodium Potassium Chloride Carbon Dioxide Anion Gap BUN Creatinine Estimated GFR POC Glucose Random Glucose Lactic Acid 14.7 H* 14.1 H* Calcium Prot Corrected Calcium Magnesium Total Bilirubin AST ALT Alkaline Phosphatase Troponin I Total Protein Albumin Urine Color Urine Clarity Urine pH Ur Specific Strawberry Urine Protein Urine Glucose (UA) Urine Ketones Urine Occult Blood Urine Nitrate Urine Bilirubin Urine Urobilinogen Ur Leukocyte Esterase Urine RBC Urine WBC Ur Squamous Epith Cells Hyaline Casts Urine Mucus Micro UA Comment Ur Microscopic Review Urine Culture Comments Nasal Screen MRSA (PCR) Blood Type Blood Bank Comment 09/01/18 09/01/18 09/01/18 03:00 04:15 04:15 WBC 18.0 H RBC 3.90 L Hgb 11.8 L Hct 37.9 L MCV 97.1 MCH 30.3 MCHC 31.2 L RDW 15.2 Plt Count 248 MPV 9.4 Prelim Diff (Auto) Slide review pending Neut % (Auto) 87.0 H Lymph % (Auto) 5.2 L Treasure % (Auto) 7.5 Eos % (Auto) 0.2 Baso % (Auto) 0.1 Neut # (Auto) 15.6 H Lymph # (Auto) 0.9 L Treasure # (Auto) 1.3 H Eos # (Auto) 0.0 Baso # (Auto) 0.0 WBC Differential . Diff Scan Auto diff confirmed Differential Comment . Toxic Granulation 1+ H Toxic Vacuolation Present H Platelet Estimate Normal Platelet Morphology Normal Acanthocytes (Spur) Occ H PT INR APTT Fibrinogen Puncture Site Patient Temperature O2 Saturation ABG pH ABG pCO2 ABG pO2 ABG HCO3 ABG O2 Content ABG Base Excess ABG Methemoglobin Parveen Test Hemoglobin Carboxyhemoglobin O2 Delivery Device Liter Flow Vent Setting Inspired O2 Critical Value Sodium 139 Potassium 4.8 Chloride 102 Carbon Dioxide 13.5 L Anion Gap 24 H BUN 49 H Creatinine 3.14 H Estimated GFR 19 L POC Glucose Random Glucose 338 H D Lactic Acid Calcium 7.2 L* Prot Corrected Calcium 8.0 L Magnesium 2.0 Total Bilirubin 2.8 H AST 25220 H ALT 5706 H Alkaline Phosphatase 62 Troponin I Total Protein 5.6 L Albumin 2.7 L Urine Color Urine Clarity Urine pH Ur Specific Strawberry Urine Protein Urine Glucose (UA) Urine Ketones Urine Occult Blood Urine Nitrate Urine Bilirubin Urine Urobilinogen Ur Leukocyte Esterase Urine RBC Urine WBC Ur Squamous Epith Cells Hyaline Casts Urine Mucus Micro UA Comment Ur Microscopic Review Urine Culture Comments Nasal Screen MRSA (PCR) Blood Type O Positive Blood Bank Comment 09/01/18 09/01/18 09/01/18 04:15 08:08 09:13 WBC RBC Hgb Hct MCV MCH MCHC RDW Plt Count MPV Prelim Diff (Auto) Neut % (Auto) Lymph % (Auto) Treasure % (Auto) Eos % (Auto) Baso % (Auto) Neut # (Auto) Lymph # (Auto) Treasure # (Auto) Eos # (Auto) Baso # (Auto) WBC Differential Diff Scan Differential Comment Toxic Granulation Toxic Vacuolation Platelet Estimate Platelet Morphology Acanthocytes (Spur) PT 89.8 H D INR 9.0 H* APTT Fibrinogen Puncture Site Art line Patient Temperature 98.6 O2 Saturation 96 ABG pH 7.26 L* ABG pCO2 27 L ABG pO2 144 H ABG HCO3 12 L* ABG O2 Content 16.0 ABG Base Excess -13.8 L ABG Methemoglobin 1.7 Parveen Test Present Hemoglobin 11.6 L Carboxyhemoglobin 0.4 O2 Delivery Device Ventilator Liter Flow Vent Setting Inspired O2 50 Critical Value Yes Sodium Potassium Chloride Carbon Dioxide Anion Gap BUN Creatinine Estimated GFR POC Glucose 303 H Random Glucose Lactic Acid Calcium Prot Corrected Calcium Magnesium Total Bilirubin AST ALT Alkaline Phosphatase Troponin I Total Protein Albumin Urine Color Urine Clarity Urine pH Ur Specific Strawberry Urine Protein Urine Glucose (UA) Urine Ketones Urine Occult Blood Urine Nitrate Urine Bilirubin Urine Urobilinogen Ur Leukocyte Esterase Urine RBC Urine WBC Ur Squamous Epith Cells Hyaline Casts Urine Mucus Micro UA Comment Ur Microscopic Review Urine Culture Comments Nasal Screen MRSA (PCR) Blood Type Blood Bank Comment 09/01/18 09/01/18 09/01/18 09:28 09:28 09:28 WBC RBC Hgb Hct MCV MCH MCHC RDW Plt Count MPV Prelim Diff (Auto) Neut % (Auto) Lymph % (Auto) Treasure % (Auto) Eos % (Auto) Baso % (Auto) Neut # (Auto) Lymph # (Auto) Treasure # (Auto) Eos # (Auto) Baso # (Auto) WBC Differential Diff Scan Differential Comment Toxic Granulation Toxic Vacuolation Platelet Estimate Platelet Morphology Acanthocytes (Spur) PT 55.9 H D INR 5.6 APTT 44.1 H Fibrinogen 282 Puncture Site Patient Temperature O2 Saturation ABG pH ABG pCO2 ABG pO2 ABG HCO3 ABG O2 Content ABG Base Excess ABG Methemoglobin Parveen Test Hemoglobin Carboxyhemoglobin O2 Delivery Device Liter Flow Vent Setting Inspired O2 Critical Value Sodium Potassium Chloride Carbon Dioxide Anion Gap BUN Creatinine Estimated GFR POC Glucose Random Glucose Lactic Acid 13.0 H* Calcium Prot Corrected Calcium Magnesium Total Bilirubin AST ALT Alkaline Phosphatase Troponin I Total Protein Albumin Urine Color Urine Clarity Urine pH Ur Specific Strawberry Urine Protein Urine Glucose (UA) Urine Ketones Urine Occult Blood Urine Nitrate Urine Bilirubin Urine Urobilinogen Ur Leukocyte Esterase Urine RBC Urine WBC Ur Squamous Epith Cells Hyaline Casts Urine Mucus Micro UA Comment Ur Microscopic Review Urine Culture Comments Nasal Screen MRSA (PCR) Blood Type Blood Bank Comment 09/01/18 09/01/18 09/01/18 12:06 13:41 15:51 WBC RBC Hgb Hct MCV MCH MCHC RDW Plt Count MPV Prelim Diff (Auto) Neut % (Auto) Lymph % (Auto) Treasure % (Auto) Eos % (Auto) Baso % (Auto) Neut # (Auto) Lymph # (Auto) Treasure # (Auto) Eos # (Auto) Baso # (Auto) WBC Differential Diff Scan Differential Comment Toxic Granulation Toxic Vacuolation Platelet Estimate Platelet Morphology Acanthocytes (Spur) PT INR APTT Fibrinogen Puncture Site Patient Temperature O2 Saturation ABG pH ABG pCO2 ABG pO2 ABG HCO3 ABG O2 Content ABG Base Excess ABG Methemoglobin Parveen Test Hemoglobin Carboxyhemoglobin O2 Delivery Device Liter Flow Vent Setting Inspired O2 Critical Value Sodium Potassium Chloride Carbon Dioxide Anion Gap BUN Creatinine Estimated GFR POC Glucose 311 H 304 H Random Glucose Lactic Acid 10.2 H* Calcium Prot Corrected Calcium Magnesium Total Bilirubin AST ALT Alkaline Phosphatase Troponin I Total Protein Albumin Urine Color Urine Clarity Urine pH Ur Specific Strawberry Urine Protein Urine Glucose (UA) Urine Ketones Urine Occult Blood Urine Nitrate Urine Bilirubin Urine Urobilinogen Ur Leukocyte Esterase Urine RBC Urine WBC Ur Squamous Epith Cells Hyaline Casts Urine Mucus Micro UA Comment Ur Microscopic Review Urine Culture Comments Nasal Screen MRSA (PCR) Blood Type Blood Bank Comment Imaging: Impressions Chest X-Ray 08/31/18 00:00 CONCLUSION: Mild cardiomegaly. No acute findings. Stable compared to prior. Chest X-Ray 08/31/18 20:47 CONCLUSION: 1. ETT in good position. Right subclavian central line in good position without pneumothorax. 2. Developing right lower lung zone ill-defined airspace disease. Abdomen/Pelvis CT 09/01/18 00:00 CONCLUSION: 1. Trace ascites, nonspecific. Also mild body wall edema. No organized or drainable fluid. 2. Diverticulosis of the sigmoid colon. No diverticulitis or other acute inflammatory changes. 3. Atherosclerosis of the aorta. Chest CT 09/01/18 00:00 CONCLUSION: 1. Bilateral pneumonia, especially right upper lobe. 2. Small bilateral pleural effusions; dependent/compressive atelectasis of both lower lobes. 3. Panchamber enlargement of the heart. Head CT 09/01/18 00:00 CONCLUSION: 1. No acute intracranial abnormality demonstrated. 2. Atrophy and chronic periventricular white matter changes. . Chest X-Ray 09/01/18 06:00 CONCLUSION: No significant change. Objective Remarks: HEENT/ Neuro: Sedated, orally intubated, Pallor present, no icterus, tongue/ mucosa moist Neck: No JVD Chest/Pulm: on mech vent, good air entry bilaterally, scattered rhonchi, no wheezing or crackles CVS: S1-S2 regular(after cardioversion), no murmur GI/abdomen: soft, distended, nontender, bowel sounds sluggish Extremities: warm bilaterally, trace edema Assessment and Plan - Assessment and Plan Plan: NEURO: Toxic metabolic encephalopathy -Patient was unresponsive secondary to severe metabolic encephalopathy -Check CT of the head as the patient is on chronic anticoagulation with Xarelto RESP: Acute hypoxemic respiratory failure Bibasilar pneumonia COPD -Emergently intubated for severe respiratory distress hypoxia and inability to protect airway -PRVC/AC, Ventilator bundle -DuoNeb every 4 hours scheduled and as needed -Broad-spectrum antibiotics as below -CT chest suggestive of pneumonia CV: Severe cardiogenic shock Severe metabolic acidosis Severe lactic acidosis 15.7 Atrial fibrillation with rapid ventricular response s/p cardioversion History of CABG Ischemic cardiomyopathy with ejection fraction 17% Moderate MR, moderate AI -Aggressively fluid resuscitated with crystalloids, IV albumin due to severe hypotension -Currently on dobutamine 2.5mcg/kg/min, vasopressin 0.04 units/min. Titrated off phenylephrine and turned off levophed after cardioversion. - Amiodarone gtt 1mg/min s/p electrical cardioversion with 100 joules X2 on 09/01, converted to sinus rhythm -Hold home medications p.o. amiodarone, p.o. metoprolol -IV digoxin 0.5 mg x1 on 08/31. -Lactic acid came back at 15.7 on 08/31, trend serial lactate -Stress dose steroids GI: -N.p.o., IV famotidine -CT abdomen pelvis with some ascites : Acute on chronic kidney disease -Monitor renal function closely. Place [place] catheter for strict intake output, hourly -Bicarb infusion for severe metabolic acidosis -Nephrology consulted -May need Renal replacement therapy ID: Septic shock Probable pneumonia -Antibiotics with IV Azactam, Flagyl, azithromycin, single dose of vancomycin -Blood urine and sputum cultures -CT chest abdomen pelvis as above HEME: -Monitor CBC, coags -Hold Xarelto due to extremely elevated INR ENDO: Hypoglycemia most likely from sepsis Hypothyroidism Mild hyperkalemia Hypocalcemia -Electrolyte replacement per protocol -Hypoglycemia protocol -Replace calcium -Correction of acidosis and breathing treatments should help improve hyperkalemia PROPH: -Bilateral lower extremity SCDs. famotidine. Xarelto to be held due to INR 9 LINES: -Right subclavian central line, right femoral arterial line placed 08/31/2018 Palliative care consulted to assist with deciding goals of therapy. D/W Family Medicine service. D/W patient's at length - explained current clinical status and plan of care- she voiced understanding and was agreeable. Patient remains very critical with multiorgan failure. CC time 50 min excluding time for procedures
[2018-09-01 17:11] LABS: ABG PCO2 22 mmHg (38-42); ABG PO2 173 mmHG (61-120)
[2018-09-01 17:51] LABS: Prothrombin Time 86.7 sec (9.8-11.6)
[2018-09-01 17:54] LABS: INR 8.7 Ratio
[2018-09-01] MEDS: Insulin NovoLIN Regular Correctional Sugar Inj SQ SCH ×2 (17:55→23:52)
[2018-09-01 18:43] LABS: Albumin 2.7 g/dL (3.4-5.0); Calcium 6.8 mg/dL (8.5-10.1); Carbon Dioxide 21.1 meq/L (21.0-32.0); Magnesium 1.7 mg/dL (1.5-2.5); Potassium 4.1 meq/L (3.5-5.1); Total Protein 5.2 g/dL (6.4-8.2)
[2018-09-01 18:48] LABS: Troponin I 1.62 ng/mL (0.02-0.05)
[2018-09-01] MEDS: Latanoprost 0.005% Opth Drops 2.5 ML Bottle EACH EYE SCH (19:59)
[2018-09-01] MEDS: Famotidine PF Inj 20 MG/2 ML Vial IV.PUSH SCH (20:00)
[2018-09-01] MEDS: fentaNYL 10 mcg/mL Premix Drip 2,500 MCG/250 ML BAG IV.SIG PRN (20:31)
--- NOTE | 2018-09-01 21:19 | P.CONPAL ---
Consult Service: Palliative Care Requesting Physician: Demetrius Schilling Reason for Consult: a. To assist with evaluation and management of symptoms including: pain, dyspnea. b. To assist medical decision maker(s) with: better understanding of current medical conditions; weighing benefits/burdens of medical treatment options; making medical treatment decisions. Primary Care Provider: Davy Walters MD History of Present Illness History of Present Illness: Mr. Ravi is an 83-year-old male with a history of A. fib on Xarelto, hypertension, hyperlipidemia, hypothyroidism, cardiomyopathy EF 17% and history of V. Tach s/p AICD placement. Echo 10/2017, EF=17%, LVH, biatrial enlargement,, Mod MR, Mod AI, Mod TR, aortic cusp thickening. He has AICD replaced [address] Contreras and has had reported trajectory of decline since that time. Patient presented to [facility] ER on 08/28/18 with worsening shortness of breath over the few weeks prior to presentation. reported that patient was hunched over on the couch trying to breathe. Shortness of breath is worse on exertion. Patient reported that when he was going to the bathroom he could not catch his breath. He denied orthopnea, leg swelling, and chest pain. He noted that his shortness of breath was relieved with oxygen. Patient reported decreased appetite since defibrillator was replaced. reported that he has lost 20 pounds in the past month. He also endorsed generalized weakness and fatigue. Patient was admitted with A. Fib with RVR, cardiomyopathy, acute on chronic renal failure. Cardiology, Dr. Guevara was consulted with recommendation for meds and plan for EMILEE with cardioversion. Patient developed worsening shortness of breath later developed hypoxia and [facility]. He was transferred to ICU. Per cotton ball bagger notes: "Patient was barely responsive tachypneic. Blood pressure was not recordable but pulse was palpable. I ordered stat transfusion of 1 L normal saline bolus, 2 Amps of bicarb to at least partially corrective acidosis prior to intubation and also started Levophed infusion peripherally. After systolic blood pressure was in 60s I proceeded with endotracheal intubation due to hypoxia and lack of airway protection. Patient was intubated and placed on mechanical ventilation. Patient remained in atrial fibrillation RVR, the shock appears to be severe cardiogenic shock worsened by severe acidosis. Levophed was rapidly increased to 40 mcg/min, additional pressors added with Tien-Synephrine and dopamine. I emergently placed a right subclavian central line and also right femoral artery line. Once arterial line is placed and flow Trac monitoring is initiated. I have given digoxin 0.5 mg IV x1 for rate control, start amiodarone bolus and infusion for rate control. Start dobutamine infusion as the patient has an EF of 17%. Duque cultures will be sent a Escamilla catheter will be inserted as the patient is almost anuric. Broad-spectrum antibiotics with Azactam Flagyl and vancomycin. Chest x-ray shows persistent left lower lobe and new right lower lobe infiltrates. This appears to be a combination of severe cardiogenic and septic shock and prognosis is guarded at this time 09/01: Remains orally intubated on mechanical ventilation. This morning at the time of my evaluation patient was easily arousable following commands. He was on phenylephrine/Levophed/dobutamine for pressor support/inotropic support as well as amiodarone gtt. Over the course of the day his phenylephrine was titrated off and Levophed was decreased to 5 mics per minute after starting vasopressin gtt 0.04 units/min. After discussion with Dr. felix proceeded with electrical cardioversion to convert him out of his A. fib. Patient was successfully cardioverted to sinus rhythm. He has been essentially anuric." Given worsening hemodynamic stability, increasing pressor support, palliative care was consulted to assist with symptom management, clarification of medical treatment goals and to provide additional support to his . Pallaitive care met with while cardioversion was being done at bedside. seems realistic, she hopes for continued recovery. She does however worry about what happens he does not get better. She is appreciative of palliative care visits and communication. Objective Past medical history: cardiomyopathy -Echo 10/2017, EF=17%, LAE, LVH, PILY, Mod MR, Mod AI, Mod TR, aortic cusp thickening Afib Hx of Vtach Prediabetic HTN Hyperlipidemia Hypothyroidism colon polyps left ear deafness Past surgical history Basal cell removal 2015 Defibrillator implant 2010 History of CABG x 5 2010 Sinus and Nasal Polypectomy 1998 Bilateral Cataract ICD change 07/2018 Family history: Dad: Colon cancer. Mother: , intracerebral bleed Sister at 29 from ID Social history: Lives with of 21 years. 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 Lives in [place]. Move to [place] from [place] about 6 years ago. Enjoys spending time with their adult children and grandchildren. Smoker- quit in 1962, 6 years, 2ppd Denies alcohol use and illicit drug use. Function/Cognitive Trajectory: See HPI Review of Systems unobtainable due to endotracheal tube PMFSH - History History Provided By: Patient - Medical History Medical History: Medical History (Last Reviewed 08/31/18 @ 22:46 by Beka Serrano MD) Afib COPD (chronic obstructive pulmonary disease) Diabetes Glaucoma HLD (hyperlipidemia) HTN (hypertension) Hypothyroid ICD (implantable cardioverter-defibrillator) in place Mitral regurgitation Skin cancer Ventricular tachycardia - Surgical History Surgical History: Surgical History (Last Reviewed 08/31/18 @ 22:46 by Beka Serrano MD) H/O sinus surgery Hx of CABG - Family History Family History: Family History (Last Updated 08/28/18 @ 22:09 by Ashanti Bloom MD, R2) Father Colon cancer - Tobacco History Second Hand Smoke Exposure: No Smoking Status: Former smoker - Alcohol History How Often Do You Have a Drink Containing Alcohol: Never - Substance Use History Substance History: No History of Abuse - Travel History History of Recent Travel: No Recent Travel in the [place] Within the Last 8 Weeks: No Recent Travel Out of the Country Within the Last 8 Weeks: No - Immunization History Tetanus Immunization: Unsure Hx Influenza Vaccine This Season: No Medications and Allergies Active Medications: Active Medications Albuterol (Duoneb Neb (Prn)) 1 ampul NEB Q2HR NEB PRN PRN Reason: SHORTNESS OF BREATH Albuterol (Duoneb Neb (Jaspal)) 1 ampul NEB Q4HR NEB JASPAL Last Admin: 09/01/18 20:09 Dose: 1 ampul Amiodarone HCl (Cordarone) 200 mg PO BID [facility] Last Admin: 09/01/18 00:32 Dose: Not Given Bumetanide (Bumex Inj) 1 mg IV.PUSH Q12H [facility] Last Admin: 09/01/18 19:58 Dose: 1 mg Chlorhexidine Gluconate (Peridex 0.12% Oral Kit) 15 ml OROPHARYNG BID@0800, 2000 [facility] Last Admin: 09/01/18 19:58 Dose: 15 ml Chlorhexidine Gluconate (Chlorhexidine 2% Cloth) 3 pack TOPICAL DAILY@0400 JASPAL Stop: 09/06/18 03:59 Last Admin: 09/01/18 05:19 Dose: 3 pack Chlorhexidine Gluconate (Chlorhexidine 2% Cloth) 3 pack TOPICAL DAILY@0400 PRN PRN Reason: Extra cloth needed Stop: 09/06/18 03:59 Dextrose (D50w Vial) 50 ml IV.PUSH UNSCH PRN PRN Reason: PER HYPOGLYCEMIA PROTOCOL Famotidine (Pepcid Pf Inj) 10 mg IV.PUSH Q12HR JASPAL Last Admin: 09/01/18 20:00 Dose: 10 mg Glucagon (Glucagon Inj) 1 mg OTHER PRN PRN PRN Reason: for Hypoglycemia Protocol Hydrocortisone Sodium Succinate (Solucortef Inj) 100 mg IV.PUSH Q8HR JASPAL Last Admin: 09/01/18 14:40 Dose: 100 mg Diltiazem HCl 125 mg/ Sodium (Chloride) 125 mls @ 5 mls/hr IV.CONT TITRATE PRN ; Protocol PRN Reason: Per Protocol Last Titration: 08/29/18 13:59 Dose: Infused Albumin Human (Flexbumin 25% Inj) 50 mls @ 50 mls/hr IV.SIG Q12H JASPAL Last Admin: 09/01/18 20:18 Dose: 50 mls/hr Aztreonam 2 gm/ Sodium (Chloride) 100 mls @ 200 mls/hr IV.SIG Q8H JASPAL Last Infusion: 09/01/18 16:36 Dose: Infused Metronidazole/Sodium Chloride (Flagyl 500 Mg Inj) 100 mls @ 100 mls/hr IV.SIG Q8H JASPAL Last Infusion: 09/01/18 16:36 Dose: Infused Amiodarone HCl 450 mg/ (Dextrose) 250 mls @ 33.33 mls/hr IV.CONT TITRATE PRN; Protocol PRN Reason: Per Protocol Last Titration: 09/01/18 19:00 Dose: 1 mg/min, 33.33 mls/hr Dopamine HCl 800 mg/ Sodium (Chloride) 520 mls @ 8.07 mls/hr IV.CONT TITRATE PRN; Protocol PRN Reason: See Protocol Last Titration: 08/31/18 23:00 Dose: Infused Phenylephrine HCl 80 mg/ (Sodium Chloride) 500 mls @ 15 mls/hr IV.CONT TITRATE PRN; Protocol PRN Reason: See prorocol Last Titration: 09/01/18 14:35 Dose: Infused Norepinephrine Bitartrate 4 mg (/ Sodium Chloride) 250 mls @ 7.5 mls/hr IV.SIG TITRATE PRN; Protocol PRN Reason: Per Protocol Last Titration: 09/01/18 14:35 Dose: Infused Dobutamine HCl 500 mg/ (Dextrose) 250 mls @ 5.17 mls/hr IV.CONT .Q24H JASPAL Last Infusion: 09/01/18 19:00 Dose: 2.5 mcg/kg/min, 5.17 mls/hr Sodium Bicarbonate 150 meq/ (Sterile Water) 1,000 mls @ 150 mls/hr IV.CONT .Q6H40M [facility] Last Admin: 09/01/18 20:34 Dose: Not Given Sodium Chloride (Ns Inj) 1,000 mls @ 0 mls/hr IV.SIG BOLUS JASPAL Azithromycin 500 mg/ Sodium (Chloride) 250 mls @ 250 mls/hr IV.SIG Q24H JASPAL Last Infusion: 09/01/18 04:00 Dose: Infused Fentanyl (Fentanyl 10 Mcg/Ml Premix Drip) 2,500 mcg in 250 mls @ 5 mls/hr IV.SIG TITRATE PRN; Protocol PRN Reason: Per Protocol Last Admin: 09/01/18 20:31 Dose: 100 mcg/hr, 10 mls/hr Vasopressin 40 unit/ Dextrose 100 mls @ 6 mls/hr IV.CONT CONT JASPAL; Protocol Last Infusion: 09/01/18 19:00 Dose: 0.02 units/min, 3 mls/hr Insulin Human Regular (Novolin R Correctional Sugar Inj) 0 units SQ Q6HR JASPAL; Protocol Last Admin: 09/01/18 17:55 Dose: 15 units Latanoprost (Xalatan 0.005% Opth Drops) 1 drop EACH EYE QPM JASPAL Last Admin: 09/01/18 19:59 Dose: 1 drop Levothyroxine Sodium (Synthroid) 75 mcg PO DAILY@0600 [facility] Last Admin: 09/01/18 06:48 Dose: Not Given Metoprolol Tartrate (Lopressor) 25 mg PO BID JASPAL Last Admin: 09/01/18 00:33 Dose: Not Given Miscellaneous Medication () 1 each OROPHARYNG 0000,0400,1200,1600 JASPAL Last Admin: 09/01/18 16:12 Dose: 1 each Morphine Sulfate (Morphine Inj) 4 mg IV.PUSH Q2H PRN PRN Reason: Pain6-10 Last Admin: 09/01/18 08:59 Dose: 4 mg Pharmacy Profile Note (Vancomycin Consult Pharmacy) 1 each OTHER UNSCH PRN PRN Reason: Pharmacy to dose Rivaroxaban (Xarelto) 15 mg PO QPM [facility] Last Admin: 08/31/18 17:44 Dose: 15 mg Sodium Chloride (Ns Flush) 2 ml IV.FLUSH BID [facility] Last Admin: 09/01/18 20:01 Dose: 2 ml Sodium Chloride (Ns Flush) 2 ml IV.FLUSH PRN PRN PRN Reason: FLUSH AFTER USING IV ACCESS Terbutaline Sulfate (Brethine Inj) 1 mg SQ UNSCH PRN PRN Reason: For Extravasation Allergies Allergy/AdvReac Type Severity Reaction Status Date / Time prednisone Allergy Severe Weight loss Verified 08/28/18 14:33 penicillin G Allergy Intermediate Hives Verified 08/28/18 14:33 Sulfa (Sulfonamide Allergy Intermediate Hives Verified 08/28/18 14:33 Antibiotics) Home Medications Medication Instructions Recorded Confirmed Type fenofibrate 160 mg PO DAILY 07/22/18 08/28/18 History latanoprost 1 drp OPHTHALMIC (EYE) QPM 07/22/18 08/28/18 History levothyroxine [Synthroid] 75 mcg PO DAILY 07/22/18 08/28/18 History pitavastatin calcium [Livalo] 2 mg PO 3XW 07/22/18 08/28/18 History metoprolol tartrate 25 mg PO BID 08/28/18 08/28/18 History rivaroxaban [Xarelto] 15 mg PO QPM 08/28/18 08/28/18 History torsemide 20 mg PO EVERY OTHER DAY 08/28/18 08/28/18 History amiodarone 200 mg PO 08/29/18 History Advance Directives Living Will: No Healthcare Surrogate: No Health Care Surrogate Name and Number: Health care proxy, : Jovita Ravi : [phone] Power of Taxicab Driver: No Today's verbally stated goals: Patient is not capacitated to make his own health care decisions, uncertain if he will regain capacity. Ethical and Legal Issues: Patient is not capacitated to make his own health care decisions, uncertain if he will regain capacity. Physical Exam Vital Signs: Vital Signs - 24 hr 08/31/18 21:00 08/31/18 22:00 08/31/18 22:31 Temperature 97 F L Pulse Rate 97 H 113 H 112 H Respiratory Rate 18 Blood Pressure Pulse Oximetry 08/31/18 22:40 08/31/18 22:50 08/31/18 23:00 Temperature Pulse Rate 116 H 108 H 110 H Respiratory Rate 18 18 11 L Blood Pressure 112/71 113/61 111/61 Pulse Oximetry 08/31/18 23:10 08/31/18 23:20 08/31/18 23:30 Temperature Pulse Rate 104 H 105 H 98 H Respiratory Rate 0 L 23 16 Blood Pressure 112/56 L 114/56 L 110/68 Pulse Oximetry 100 91 L 08/31/18 23:40 08/31/18 23:50 09/01/18 00:00 Temperature Pulse Rate 104 H 105 H 99 H Respiratory Rate 0 L 18 18 Blood Pressure 114/75 122/68 111/66 Pulse Oximetry 100 100 98 09/01/18 00:10 09/01/18 00:20 09/01/18 00:30 Temperature Pulse Rate 101 H 103 H 97 H Respiratory Rate 18 18 18 Blood Pressure 111/75 114/64 115/58 L Pulse Oximetry 96 98 100 09/01/18 00:40 09/01/18 00:50 09/01/18 01:00 Temperature Pulse Rate 97 H 95 H 88 Respiratory Rate 18 18 18 Blood Pressure 117/66 112/62 112/59 L Pulse Oximetry 100 99 100 09/01/18 01:10 09/01/18 01:20 09/01/18 01:30 Temperature Pulse Rate 88 104 H 100 H Respiratory Rate 18 18 18 Blood Pressure 114/68 118/56 L 121/60 Pulse Oximetry 100 100 100 09/01/18 01:47 09/01/18 01:50 09/01/18 02:00 Temperature Pulse Rate 107 H 95 H 98 H Respiratory Rate 25 H 25 H 24 Blood Pressure 124/59 L 123/62 108/58 L Pulse Oximetry 100 100 100 09/01/18 02:05 09/01/18 02:10 09/01/18 02:16 Temperature Pulse Rate 98 H 93 H Respiratory Rate 19 18 Blood Pressure 106/60 101/68 Pulse Oximetry 100 100 100 09/01/18 02:20 09/01/18 02:30 09/01/18 02:40 Temperature Pulse Rate 90 97 H 95 H Respiratory Rate 18 18 18 Blood Pressure 109/58 L 114/58 L 123/59 L Pulse Oximetry 100 100 100 09/01/18 02:50 09/01/18 03:00 09/01/18 03:10 Temperature Pulse Rate 99 H 96 H 91 H Respiratory Rate 18 18 19 Blood Pressure 117/58 L 119/57 L 94/45 L Pulse Oximetry 100 100 99 09/01/18 03:20 09/01/18 03:30 09/01/18 03:40 Temperature Pulse Rate 91 H 97 H 88 Respiratory Rate 19 18 23 Blood Pressure 86/49 L 91/50 L 84/52 L Pulse Oximetry 96 99 92 L 09/01/18 03:54 09/01/18 04:00 09/01/18 04:03 Temperature Pulse Rate 93 H 98 H 97 H Respiratory Rate 19 19 19 Blood Pressure 79/52 L 73/55 L Pulse Oximetry 99 100 96 09/01/18 04:10 09/01/18 04:20 09/01/18 04:30 Temperature Pulse Rate 88 91 H 98 H Respiratory Rate 21 19 20 Blood Pressure 79/58 L 75/54 L 80/56 L Pulse Oximetry 95 100 99 09/01/18 04:48 09/01/18 05:01 09/01/18 05:05 Temperature Pulse Rate 84 89 96 H Respiratory Rate 19 22 18 Blood Pressure 99/67 L 99/67 L Pulse Oximetry 99 96 09/01/18 05:55 09/01/18 07:00 09/01/18 08:00 Temperature 98 F Pulse Rate 82 99 H 105 H Respiratory Rate 21 26 H Blood Pressure 102/57 L 106/60 Pulse Oximetry 98 96 09/01/18 08:16 09/01/18 09:00 09/01/18 10:00 Temperature Pulse Rate 103 H 106 H 106 H Respiratory Rate 26 H Blood Pressure Pulse Oximetry 98 09/01/18 10:21 09/01/18 11:00 09/01/18 11:07 Temperature Pulse Rate 106 H 106 H Respiratory Rate 22 22 Blood Pressure Pulse Oximetry 99 09/01/18 12:00 09/01/18 13:00 09/01/18 13:09 Temperature 98.4 F Pulse Rate 94 H 95 H Respiratory Rate 20 22 Blood Pressure 96/65 L Pulse Oximetry 99 99 09/01/18 14:00 09/01/18 15:00 09/01/18 16:00 Temperature 98.2 F Pulse Rate 89 87 75 Respiratory Rate 25 H Blood Pressure 106/60 Pulse Oximetry 99 09/01/18 16:35 09/01/18 20:10 09/01/18 20:15 Temperature Pulse Rate 74 72 Respiratory Rate 22 18 18 Blood Pressure Pulse Oximetry 99 97 I&O: Intake & Output 08/30/18 08/31/18 09/01/18 09/02/18 06:59 06:59 06:59 06:59 Intake Total 3295 / 3295 1030 / 1030 4674 / 4674 3340 / 3340 Output Total 1050 / 1050 650 / 650 100 / 100 Balance 2245 / 2245 380 / 380 4674 / 4674 3240 / 3240 Weight 68.5 kg 69 kg 76.7 kg Physical Exam: CONSTITUTIONAL/GENERAL: This is a critically ill pt, in no apparent distress. TUBES/LINES/DRAINS:ETT, OG, right Sub CL, AICD, PIV left, Escamilla. SKIN: Pale. Ecchymoses on upper extremities. No wounds seen anteriorly. Skin temperature appropriate. Not diaphoretic. HEAD: Atraumatic. Normocephalic. EYES: eyes closed. ENT: Hard of hearing. nose without bleeding or purulent drainage. Throat without visible erythema, exudates, masses, or lesions. NECK: Trachea midline. CARDIOVASCULAR: Regular rate and rhythm after cardioversion. Peripheral pulses symmetric. RESPIRATORY/CHEST: Symmetric, unlabored respirations on vent, scattered rhonchi. GASTROINTESTINAL: Abdomen soft, distended. Bowel sounds hypoactive. GENITOURINARY: Without palpable bladder distension. Escamilla catheter in place. MUSCULOSKELETAL: Extremities without clubbing, cyanosis, or edema. No mottling or clubbing. LYMPHATICS: Not examined. NEUROLOGICAL: sedated PSYCHIATRIC: sedated. Diagnostic Tests Laboratory: Laboratory Results - last 72 hr 08/30/18 08/30/18 08/30/18 07:30 07:30 07:30 WBC RBC Hgb Hct MCV MCH MCHC RDW Plt Count MPV Prelim Diff (Auto) Neut % (Auto) Lymph % (Auto) Owen % (Auto) Eos % (Auto) Baso % (Auto) Neut # (Auto) Lymph # (Auto) Owen # (Auto) Eos # (Auto) Baso # (Auto) WBC Differential Diff Scan Differential Comment Toxic Granulation Toxic Vacuolation Platelet Estimate Platelet Morphology Acanthocytes (Spur) PT INR APTT Fibrinogen Puncture Site Patient Temperature O2 Saturation ABG pH ABG pCO2 ABG pO2 ABG HCO3 ABG O2 Content ABG Base Excess ABG Methemoglobin Parveen Test Hemoglobin Carboxyhemoglobin O2 Delivery Device Liter Flow Vent Setting Inspired O2 Critical Value Sodium 139 Potassium 3.5 Chloride 106 Carbon Dioxide 23.7 Anion Gap 9 BUN 35 H Creatinine 1.25 Estimated GFR 55 L POC Glucose Random Glucose 117 H Lactic Acid Calcium 8.5 Prot Corrected Calcium Magnesium Total Bilirubin 0.8 AST 198 H ALT 338 H Alkaline Phosphatase 60 Troponin I B-Natriuretic Peptide 3150 H Total Protein 7.5 Albumin 3.2 L TSH 0.533 Free T4 1.49 H Urine Color Urine Clarity Urine pH Ur Specific [place] Urine Protein Urine Glucose (UA) Urine Ketones Urine Occult Blood Urine Nitrate Urine Bilirubin Urine Urobilinogen Ur Leukocyte Esterase Urine RBC Urine WBC Ur Squamous Epith Cells Hyaline Casts Urine Mucus Micro UA Comment Ur Microscopic Review Urine Culture Comments Nasal Screen MRSA (PCR) Blood Type Blood Bank Comment 08/30/18 08/31/18 08/31/18 07:30 04:06 04:06 WBC 11.7 H RBC 4.90 Hgb 14.8 Hct 46.0 MCV 93.9 MCH 30.3 MCHC 32.2 RDW 14.5 Plt Count 332 MPV 9.1 Prelim Diff (Auto) Neut % (Auto) Lymph % (Auto) Owen % (Auto) Eos % (Auto) Baso % (Auto) Neut # (Auto) Lymph # (Auto) Owen # (Auto) Eos # (Auto) Baso # (Auto) WBC Differential Diff Scan Differential Comment Toxic Granulation Toxic Vacuolation Platelet Estimate Platelet Morphology Acanthocytes (Spur) PT INR APTT Fibrinogen Puncture Site Patient Temperature O2 Saturation ABG pH ABG pCO2 ABG pO2 ABG HCO3 ABG O2 Content ABG Base Excess ABG Methemoglobin Parveen Test Hemoglobin Carboxyhemoglobin O2 Delivery Device Liter Flow Vent Setting Inspired O2 Critical Value Sodium Potassium Chloride Carbon Dioxide Anion Gap BUN Creatinine Estimated GFR POC Glucose Random Glucose Lactic Acid Calcium Prot Corrected Calcium Magnesium Total Bilirubin AST ALT Alkaline Phosphatase Troponin I B-Natriuretic Peptide 3942 H Total Protein Albumin TSH Cancelled Free T4 Urine Color Urine Clarity Urine pH Ur Specific [place] Urine Protein Urine Glucose (UA) Urine Ketones Urine Occult Blood Urine Nitrate Urine Bilirubin Urine Urobilinogen Ur Leukocyte Esterase Urine RBC Urine WBC Ur Squamous Epith Cells Hyaline Casts Urine Mucus Micro UA Comment Ur Microscopic Review Urine Culture Comments Nasal Screen MRSA (PCR) Blood Type Blood Bank Comment 08/31/18 08/31/18 08/31/18 04:06 17:49 20:31 WBC RBC Hgb Hct MCV MCH MCHC RDW Plt Count MPV Prelim Diff (Auto) Neut % (Auto) Lymph % (Auto) Owen % (Auto) Eos % (Auto) Baso % (Auto) Neut # (Auto) Lymph # (Auto) Owen # (Auto) Eos # (Auto) Baso # (Auto) WBC Differential Diff Scan Differential Comment Toxic Granulation Toxic Vacuolation Platelet Estimate Platelet Morphology Acanthocytes (Spur) PT INR APTT Fibrinogen Puncture Site Right femoral Patient Temperature 98.6 O2 Saturation 78 L* ABG pH 7.09 L* ABG pCO2 26 L ABG pO2 58 L* ABG HCO3 7 L* ABG O2 Content 14.5 ABG Base Excess -20.5 L ABG Methemoglobin 1.6 Parveen Test Present Hemoglobin 13.2 Carboxyhemoglobin 0.2 O2 Delivery Device Nasal cannula Liter Flow 3.00 Vent Setting Inspired O2 Critical Value Yes Sodium 139 Potassium 5.4 H D Chloride 106 Carbon Dioxide 17.1 L Anion Gap 16 H BUN 36 H Creatinine 1.89 H Estimated GFR 34 L POC Glucose 75 Random Glucose 157 H Lactic Acid Calcium 9.0 Prot Corrected Calcium Magnesium Total Bilirubin 1.6 H AST 444 H ALT 477 H Alkaline Phosphatase 63 Troponin I B-Natriuretic Peptide Total Protein 7.7 Albumin 3.4 TSH Free T4 Urine Color Urine Clarity Urine pH Ur Specific [place] Urine Protein Urine Glucose (UA) Urine Ketones Urine Occult Blood Urine Nitrate Urine Bilirubin Urine Urobilinogen Ur Leukocyte Esterase Urine RBC Urine WBC Ur Squamous Epith Cells Hyaline Casts Urine Mucus Micro UA Comment Ur Microscopic Review Urine Culture Comments Nasal Screen MRSA (PCR) Blood Type Blood Bank Comment 08/31/18 08/31/18 08/31/18 20:55 21:06 21:30 WBC RBC Hgb Hct MCV MCH MCHC RDW Plt Count MPV Prelim Diff (Auto) Neut % (Auto) Lymph % (Auto) Owen % (Auto) Eos % (Auto) Baso % (Auto) Neut # (Auto) Lymph # (Auto) Owen # (Auto) Eos # (Auto) Baso # (Auto) WBC Differential Diff Scan Differential Comment Toxic Granulation Toxic Vacuolation Platelet Estimate Platelet Morphology Acanthocytes (Spur) PT INR APTT Fibrinogen Puncture Site Art line Patient Temperature 98.6 O2 Saturation 97 ABG pH 7.24 L* ABG pCO2 32 L ABG pO2 448 H ABG HCO3 32 H ABG O2 Content 17.6 ABG Base Excess 13.0 H ABG Methemoglobin 1.7 Parveen Test Present Hemoglobin 12.0 Carboxyhemoglobin 0.2 O2 Delivery Device Ventilator Liter Flow Vent Setting 16/550/+5 Inspired O2 0 Critical Value Yes Sodium Potassium Chloride Carbon Dioxide Anion Gap BUN Creatinine Estimated GFR POC Glucose 52 L 194 H Random Glucose Lactic Acid Calcium Prot Corrected Calcium Magnesium Total Bilirubin AST ALT Alkaline Phosphatase Troponin I B-Natriuretic Peptide Total Protein Albumin TSH Free T4 Urine Color Urine Clarity Urine pH Ur Specific [place] Urine Protein Urine Glucose (UA) Urine Ketones Urine Occult Blood Urine Nitrate Urine Bilirubin Urine Urobilinogen Ur Leukocyte Esterase Urine RBC Urine WBC Ur Squamous Epith Cells Hyaline Casts Urine Mucus Micro UA Comment Ur Microscopic Review Urine Culture Comments Nasal Screen MRSA (PCR) Blood Type Blood Bank Comment 08/31/18 08/31/18 08/31/18 21:45 21:45 21:45 WBC 16.4 H RBC 4.00 L Hgb 11.9 L D Hct 38.0 L MCV 95.1 MCH 29.9 MCHC 31.4 L RDW 14.8 Plt Count 263 MPV 9.2 Prelim Diff (Auto) Slide review pending Neut % (Auto) 87.0 H Lymph % (Auto) 3.8 L Owen % (Auto) 9.0 H Eos % (Auto) 0.1 Baso % (Auto) 0.1 Neut # (Auto) 14.2 H Lymph # (Auto) 0.6 L Owen # (Auto) 1.5 H Eos # (Auto) 0.0 Baso # (Auto) 0.0 WBC Differential . Diff Scan Auto diff confirmed Differential Comment . Toxic Granulation Toxic Vacuolation Platelet Estimate Normal Platelet Morphology Normal Acanthocytes (Spur) PT INR APTT Fibrinogen Puncture Site Patient Temperature O2 Saturation ABG pH ABG pCO2 ABG pO2 ABG HCO3 ABG O2 Content ABG Base Excess ABG Methemoglobin Parveen Test Hemoglobin Carboxyhemoglobin O2 Delivery Device Liter Flow Vent Setting Inspired O2 Critical Value Sodium 144 Potassium 5.5 H Chloride 103 Carbon Dioxide 15.1 L Anion Gap 26 H BUN 50 H Creatinine 3.26 H Estimated GFR 18 L POC Glucose Random Glucose 217 H Lactic Acid 15.7 H* Calcium 7.7 L D Prot Corrected Calcium Magnesium Total Bilirubin 2.6 H AST 19486 H ALT 4298 H Alkaline Phosphatase 57 Troponin I B-Natriuretic Peptide Total Protein 5.9 L D Albumin 2.7 L D TSH Free T4 Urine Color Urine Clarity Urine pH Ur Specific [place] Urine Protein Urine Glucose (UA) Urine Ketones Urine Occult Blood Urine Nitrate Urine Bilirubin Urine Urobilinogen Ur Leukocyte Esterase Urine RBC Urine WBC Ur Squamous Epith Cells Hyaline Casts Urine Mucus Micro UA Comment Ur Microscopic Review Urine Culture Comments Nasal Screen MRSA (PCR) Blood Type Blood Bank Comment 08/31/18 08/31/18 08/31/18 21:45 21:45 23:01 WBC RBC Hgb Hct MCV MCH MCHC RDW Plt Count MPV Prelim Diff (Auto) Neut % (Auto) Lymph % (Auto) Owen % (Auto) Eos % (Auto) Baso % (Auto) Neut # (Auto) Lymph # (Auto) Owen # (Auto) Eos # (Auto) Baso # (Auto) WBC Differential Diff Scan Differential Comment Toxic Granulation Toxic Vacuolation Platelet Estimate Platelet Morphology Acanthocytes (Spur) PT INR APTT Fibrinogen Puncture Site Patient Temperature O2 Saturation ABG pH ABG pCO2 ABG pO2 ABG HCO3 ABG O2 Content ABG Base Excess ABG Methemoglobin Parveen Test Hemoglobin Carboxyhemoglobin O2 Delivery Device Liter Flow Vent Setting Inspired O2 Critical Value Sodium Potassium Chloride Carbon Dioxide Anion Gap BUN Creatinine Estimated GFR POC Glucose 191 H Random Glucose Lactic Acid Calcium Prot Corrected Calcium Magnesium Total Bilirubin AST ALT Alkaline Phosphatase Troponin I 0.12 H B-Natriuretic Peptide Total Protein Albumin TSH Free T4 Urine Color Yellow Urine Clarity Hazy H Urine pH 5.0 Ur Specific [place] 1.011 Urine Protein Negative Urine Glucose (UA) Negative Urine Ketones Negative Urine Occult Blood Moderate H Urine Nitrate Negative Urine Bilirubin Negative Urine Urobilinogen 2.0 H Ur Leukocyte Esterase Negative Urine RBC 3 Urine WBC 3 Ur Squamous Epith Cells <1 Hyaline Casts 1 Urine Mucus Few H Micro UA Comment Cath-culture not ind Ur Microscopic Review Not Reportable Urine Culture Comments Cath-cult not ind Nasal Screen MRSA (PCR) Blood Type Blood Bank Comment 09/01/18 09/01/18 09/01/18 00:05 00:15 01:00 WBC RBC Hgb Hct MCV MCH MCHC RDW Plt Count MPV Prelim Diff (Auto) Neut % (Auto) Lymph % (Auto) Owen % (Auto) Eos % (Auto) Baso % (Auto) Neut # (Auto) Lymph # (Auto) Owen # (Auto) Eos # (Auto) Baso # (Auto) WBC Differential Diff Scan Differential Comment Toxic Granulation Toxic Vacuolation Platelet Estimate Platelet Morphology Acanthocytes (Spur) PT 73.6 H D INR 7.4 H* APTT Fibrinogen Puncture Site Patient Temperature O2 Saturation ABG pH ABG pCO2 ABG pO2 ABG HCO3 ABG O2 Content ABG Base Excess ABG Methemoglobin Parveen Test Hemoglobin Carboxyhemoglobin O2 Delivery Device Liter Flow Vent Setting Inspired O2 Critical Value Sodium Potassium Chloride Carbon Dioxide Anion Gap BUN Creatinine Estimated GFR POC Glucose Random Glucose Lactic Acid 14.7 H* Calcium Prot Corrected Calcium Magnesium Total Bilirubin AST ALT Alkaline Phosphatase Troponin I B-Natriuretic Peptide Total Protein Albumin TSH Free T4 Urine Color Urine Clarity Urine pH Ur Specific [place] Urine Protein Urine Glucose (UA) Urine Ketones Urine Occult Blood Urine Nitrate Urine Bilirubin Urine Urobilinogen Ur Leukocyte Esterase Urine RBC Urine WBC Ur Squamous Epith Cells Hyaline Casts Urine Mucus Micro UA Comment Ur Microscopic Review Urine Culture Comments Nasal Screen MRSA (PCR) Not detected Blood Type Blood Bank Comment 09/01/18 09/01/18 09/01/18 02:25 03:00 04:15 WBC 18.0 H RBC 3.90 L Hgb 11.8 L Hct 37.9 L MCV 97.1 MCH 30.3 MCHC 31.2 L RDW 15.2 Plt Count 248 MPV 9.4 Prelim Diff (Auto) Slide review pending Neut % (Auto) 87.0 H Lymph % (Auto) 5.2 L Owen % (Auto) 7.5 Eos % (Auto) 0.2 Baso % (Auto) 0.1 Neut # (Auto) 15.6 H Lymph # (Auto) 0.9 L Owen # (Auto) 1.3 H Eos # (Auto) 0.0 Baso # (Auto) 0.0 WBC Differential . Diff Scan Auto diff confirmed Differential Comment . Toxic Granulation 1+ H Toxic Vacuolation Present H Platelet Estimate Normal Platelet Morphology Normal Acanthocytes (Spur) Occ H PT INR APTT Fibrinogen Puncture Site Patient Temperature O2 Saturation ABG pH ABG pCO2 ABG pO2 ABG HCO3 ABG O2 Content ABG Base Excess ABG Methemoglobin Parveen Test Hemoglobin Carboxyhemoglobin O2 Delivery Device Liter Flow Vent Setting Inspired O2 Critical Value Sodium Potassium Chloride Carbon Dioxide Anion Gap BUN Creatinine Estimated GFR POC Glucose Random Glucose Lactic Acid 14.1 H* Calcium Prot Corrected Calcium Magnesium Total Bilirubin AST ALT Alkaline Phosphatase Troponin I B-Natriuretic Peptide Total Protein Albumin TSH Free T4 Urine Color Urine Clarity Urine pH Ur Specific [place] Urine Protein Urine Glucose (UA) Urine Ketones Urine Occult Blood Urine Nitrate Urine Bilirubin Urine Urobilinogen Ur Leukocyte Esterase Urine RBC Urine WBC Ur Squamous Epith Cells Hyaline Casts Urine Mucus Micro UA Comment Ur Microscopic Review Urine Culture Comments Nasal Screen MRSA (PCR) Blood Type O Positive Blood Bank Comment 09/01/18 09/01/18 09/01/18 04:15 04:15 08:08 WBC RBC Hgb Hct MCV MCH MCHC RDW Plt Count MPV Prelim Diff (Auto) Neut % (Auto) Lymph % (Auto) Owen % (Auto) Eos % (Auto) Baso % (Auto) Neut # (Auto) Lymph # (Auto) Owen # (Auto) Eos # (Auto) Baso # (Auto) WBC Differential Diff Scan Differential Comment Toxic Granulation Toxic Vacuolation Platelet Estimate Platelet Morphology Acanthocytes (Spur) PT 89.8 H D INR 9.0 H* APTT Fibrinogen Puncture Site Patient Temperature O2 Saturation ABG pH ABG pCO2 ABG pO2 ABG HCO3 ABG O2 Content ABG Base Excess ABG Methemoglobin Parveen Test Hemoglobin Carboxyhemoglobin O2 Delivery Device Liter Flow Vent Setting Inspired O2 Critical Value Sodium 139 Potassium 4.8 Chloride 102 Carbon Dioxide 13.5 L Anion Gap 24 H BUN 49 H Creatinine 3.14 H Estimated GFR 19 L POC Glucose 303 H Random Glucose 338 H D Lactic Acid Calcium 7.2 L* Prot Corrected Calcium 8.0 L Magnesium 2.0 Total Bilirubin 2.8 H AST 25857 H ALT 5706 H Alkaline Phosphatase 62 Troponin I B-Natriuretic Peptide Total Protein 5.6 L Albumin 2.7 L TSH Free T4 Urine Color Urine Clarity Urine pH Ur Specific [place] Urine Protein Urine Glucose (UA) Urine Ketones Urine Occult Blood Urine Nitrate Urine Bilirubin Urine Urobilinogen Ur Leukocyte Esterase Urine RBC Urine WBC Ur Squamous Epith Cells Hyaline Casts Urine Mucus Micro UA Comment Ur Microscopic Review Urine Culture Comments Nasal Screen MRSA (PCR) Blood Type Blood Bank Comment 09/01/18 09/01/18 09/01/18 09:13 09:28 09:28 WBC RBC Hgb Hct MCV MCH MCHC RDW Plt Count MPV Prelim Diff (Auto) Neut % (Auto) Lymph % (Auto) Owen % (Auto) Eos % (Auto) Baso % (Auto) Neut # (Auto) Lymph # (Auto) Owen # (Auto) Eos # (Auto) Baso # (Auto) WBC Differential Diff Scan Differential Comment Toxic Granulation Toxic Vacuolation Platelet Estimate Platelet Morphology Acanthocytes (Spur) PT INR APTT 44.1 H Fibrinogen 282 Puncture Site Art line Patient Temperature 98.6 O2 Saturation 96 ABG pH 7.26 L* ABG pCO2 27 L ABG pO2 144 H ABG HCO3 12 L* ABG O2 Content 16.0 ABG Base Excess -13.8 L ABG Methemoglobin 1.7 Parveen Test Present Hemoglobin 11.6 L Carboxyhemoglobin 0.4 O2 Delivery Device Ventilator Liter Flow Vent Setting Inspired O2 50 Critical Value Yes Sodium Potassium Chloride Carbon Dioxide Anion Gap BUN Creatinine Estimated GFR POC Glucose Random Glucose Lactic Acid 13.0 H* Calcium Prot Corrected Calcium Magnesium Total Bilirubin AST ALT Alkaline Phosphatase Troponin I B-Natriuretic Peptide Total Protein Albumin TSH Free T4 Urine Color Urine Clarity Urine pH Ur Specific [place] Urine Protein Urine Glucose (UA) Urine Ketones Urine Occult Blood Urine Nitrate Urine Bilirubin Urine Urobilinogen Ur Leukocyte Esterase Urine RBC Urine WBC Ur Squamous Epith Cells Hyaline Casts Urine Mucus Micro UA Comment Ur Microscopic Review Urine Culture Comments Nasal Screen MRSA (PCR) Blood Type Blood Bank Comment 09/01/18 09/01/18 09/01/18 09:28 12:06 13:41 WBC RBC Hgb Hct MCV MCH MCHC RDW Plt Count MPV Prelim Diff (Auto) Neut % (Auto) Lymph % (Auto) Owen % (Auto) Eos % (Auto) Baso % (Auto) Neut # (Auto) Lymph # (Auto) Owen # (Auto) Eos # (Auto) Baso # (Auto) WBC Differential Diff Scan Differential Comment Toxic Granulation Toxic Vacuolation Platelet Estimate Platelet Morphology Acanthocytes (Spur) PT 55.9 H D INR 5.6 APTT Fibrinogen Puncture Site Patient Temperature O2 Saturation ABG pH ABG pCO2 ABG pO2 ABG HCO3 ABG O2 Content ABG Base Excess ABG Methemoglobin Parveen Test Hemoglobin Carboxyhemoglobin O2 Delivery Device Liter Flow Vent Setting Inspired O2 Critical Value Sodium Potassium Chloride Carbon Dioxide Anion Gap BUN Creatinine Estimated GFR POC Glucose 311 H Random Glucose Lactic Acid 10.2 H* Calcium Prot Corrected Calcium Magnesium Total Bilirubin AST ALT Alkaline Phosphatase Troponin I B-Natriuretic Peptide Total Protein Albumin TSH Free T4 Urine Color Urine Clarity Urine pH Ur Specific [place] Urine Protein Urine Glucose (UA) Urine Ketones Urine Occult Blood Urine Nitrate Urine Bilirubin Urine Urobilinogen Ur Leukocyte Esterase Urine RBC Urine WBC Ur Squamous Epith Cells Hyaline Casts Urine Mucus Micro UA Comment Ur Microscopic Review Urine Culture Comments Nasal Screen MRSA (PCR) Blood Type Blood Bank Comment 09/01/18 09/01/18 09/01/18 15:51 17:04 17:20 WBC RBC Hgb Hct MCV MCH MCHC RDW Plt Count MPV Prelim Diff (Auto) Neut % (Auto) Lymph % (Auto) Owen % (Auto) Eos % (Auto) Baso % (Auto) Neut # (Auto) Lymph # (Auto) Owen # (Auto) Eos # (Auto) Baso # (Auto) WBC Differential Diff Scan Differential Comment Toxic Granulation Toxic Vacuolation Platelet Estimate Platelet Morphology Acanthocytes (Spur) PT INR APTT Fibrinogen Puncture Site Art line Patient Temperature 98.6 O2 Saturation 97 ABG pH 7.55 H* ABG pCO2 22 L* ABG pO2 173 H ABG HCO3 19 L ABG O2 Content 14.1 ABG Base Excess -3.0 L ABG Methemoglobin 1.7 Parveen Test Hemoglobin 10.1 L Carboxyhemoglobin 0.9 O2 Delivery Device Ventilator Liter Flow Vent Setting Prvc ac Inspired O2 50 Critical Value Yes Sodium Potassium Chloride Carbon Dioxide Anion Gap BUN Creatinine Estimated GFR POC Glucose 304 H Random Glucose Lactic Acid 6.8 H* Calcium Prot Corrected Calcium Magnesium Total Bilirubin AST ALT Alkaline Phosphatase Troponin I B-Natriuretic Peptide Total Protein Albumin TSH Free T4 Urine Color Urine Clarity Urine pH Ur Specific [place] Urine Protein Urine Glucose (UA) Urine Ketones Urine Occult Blood Urine Nitrate Urine Bilirubin Urine Urobilinogen Ur Leukocyte Esterase Urine RBC Urine WBC Ur Squamous Epith Cells Hyaline Casts Urine Mucus Micro UA Comment Ur Microscopic Review Urine Culture Comments Nasal Screen MRSA (PCR) Blood Type Blood Bank Comment 09/01/18 09/01/18 09/01/18 17:20 17:20 17:52 WBC RBC Hgb Hct MCV MCH MCHC RDW Plt Count MPV Prelim Diff (Auto) Neut % (Auto) Lymph % (Auto) Owen % (Auto) Eos % (Auto) Baso % (Auto) Neut # (Auto) Lymph # (Auto) Owen # (Auto) Eos # (Auto) Baso # (Auto) WBC Differential Diff Scan Differential Comment Toxic Granulation Toxic Vacuolation Platelet Estimate Platelet Morphology Acanthocytes (Spur) PT 86.7 H D INR 8.7 H* APTT Fibrinogen Puncture Site Patient Temperature O2 Saturation ABG pH ABG pCO2 ABG pO2 ABG HCO3 ABG O2 Content ABG Base Excess ABG Methemoglobin Parveen Test Hemoglobin Carboxyhemoglobin O2 Delivery Device Liter Flow Vent Setting Inspired O2 Critical Value Sodium 137 Potassium 4.1 Chloride 98 Carbon Dioxide 21.1 Anion Gap 18 H BUN 51 H Creatinine 3.28 H Estimated GFR 18 L POC Glucose 265 H Random Glucose 272 H Lactic Acid Calcium 6.8 L* Prot Corrected Calcium 7.8 L Magnesium 1.7 Total Bilirubin 2.7 H AST 36250 H ALT 5779 H Alkaline Phosphatase 73 Troponin I 1.62 H* B-Natriuretic Peptide Total Protein 5.2 L Albumin 2.7 L TSH Free T4 Urine Color Urine Clarity Urine pH Ur Specific [place] Urine Protein Urine Glucose (UA) Urine Ketones Urine Occult Blood Urine Nitrate Urine Bilirubin Urine Urobilinogen Ur Leukocyte Esterase Urine RBC Urine WBC Ur Squamous Epith Cells Hyaline Casts Urine Mucus Micro UA Comment Ur Microscopic Review Urine Culture Comments Nasal Screen MRSA (PCR) Blood Type Blood Bank Comment Result Diagrams: 09/01/18 04:15 09/01/18 17:20 Microbiology: Microbiology 08/31/18 22:20 Aerobic Blood Culture - Preliminary Blood - Peripheral No growth in 1 day Anaerobic Blood Culture - Preliminary No growth in 1 day 09/01/18 00:05 Gram Stain - Final Sputum - Endotracheal 08/31/18 21:40 Streptococcus pneumoniae Antigen (M - Final Urine - Catheterized Urine Presumptive negative for streptococcus pneumoniae antigen, suggesting no current or recent infection. Infection due to Streptococcus pneumoniae cannot be ruled out since the antigen present in the sample may be below the detection limit of the test. 08/31/18 21:40 Legionella Antigen - Final Urine - Catheterized Urine Presumptive negative for Legionella pneumophila serogroup 1 antigen in urine, suggesting no recent or recurrent infection. Infection due to Legionella cannot be ruled out since other serogroups and species may cause disease, antigen may not be present in urine in early infection, and the level of antigen present in the urine may be below the detection limit of the test. Imaging: Abdomen/Pelvis CT 09/01/18 00:00 CONCLUSION: 1. Trace ascites, nonspecific. Also mild body wall edema. No organized or drainable fluid. 2. Diverticulosis of the sigmoid colon. No diverticulitis or other acute inflammatory changes. 3. Atherosclerosis of the aorta. Chest CT 09/01/18 00:00 CONCLUSION: 1. Bilateral pneumonia, especially right upper lobe. 2. Small bilateral pleural effusions; dependent/compressive atelectasis of both lower lobes. 3. Panchamber enlargement of the heart. Head CT 09/01/18 00:00 CONCLUSION: 1. No acute intracranial abnormality demonstrated. 2. Atrophy and chronic periventricular white matter changes. . Chest X-Ray 09/01/18 06:00 CONCLUSION: No significant change. Patient/Family Conference Present at Family Conference: Met with at bedside and in consult room. Family Conference Time: 90 Family Conference Location: Bedside, Consult Room Issues Discussed: * Palliative care role, purpose, approach * Additional medical, psychosocial, and spiritual history * Patients general health, functional status, and cognitive changes in the months leading up to the current hospitalization * Patient/family understanding of the current medical problems * Patient/family understanding of prognosis * Patients goals of care as best understood from advance directives and/or conversations and/or values * Current medical treatment options and benefits/burdens of those options * Likely scenarios comparing ongoing aggressive care with a transition to comfort measures only * Questions answered to the best of my ability * Palliative care contact information provided Assessment and Plan - Disease Oriented Problem List (1) Cardiomyopathy (2) Atrial fibrillation (3) V-tach (4) Atrial fibrillation with rapid ventricular response (5) Renal failure, acute on chronic (6) Shortness of breath on exertion (7) Hyperlipidemia (8) Respiratory failure (9) Metabolic acidosis (10) Shock liver (11) Bilateral pneumonia - Symptom Scale (1) Pain 0-10 Scale: Unable to quantify (2) Dyspnea 0-10 Scale: Unable to quantify Pertinent Non-Medical Issues: Psychosocial: . Has children and grandchildren he enjoys spending time with. Retired. Was in the . From [place], moved to [place] 6 years ago. Spiritual: Declines insole and outsole preparer support. Friends and family continue to pray for him. Legal:Patient is not capacitated to make his own health care decisions, uncertain if he will regain capacity. No written advance directives. According to [place] statutes, health care proxy decision making falls to his spouse, Jovita Ravi. Ethical issues impacting care:None. Important Contacts: Health care proxy, : Jovita Ravi: [phone] Prognosis: Will need to monitor over next few days for better prognostication. Code Status: Full Code Plan: * Patient is not capacitated to make his own health care decisions, uncertain if he will regain capacity. No written advance directives. According to [place] statutes, health care proxy decision making falls to his spouse, Jovita Ravi. * FULL CODE * Goals remain aggressive. * SYMPTOMS: pain and dyspnea: sedated on mech vent, no obvious signs of discomfort or SOB. No new medication recommendations at this time. * Palliative care number provided. * Pallaitive care will continue to follow throughout hsopital course to assist with symptom management and clarification of medical treatment goals. Appreciation Thank you for the opportunity to participate in the care of Keith Ravi. Attestation Attestation: To help prompt me to consider important information that might be impacting today's encounter and assessment, information from prior notes written by myself or my colleagues may have been "brought forward" into today's note. My signature on this note, however, is an attestation that I personally performed the exam, history, and/or decision-making noted today, and, unless otherwise indicated, the interactions with patient, family, and staff as well as the review of records all occurred today. I also attest that the listed assessment and stated plan reflect my best clinical judgment today based on the combination of historical information, prior notes, and today's exam/ interactions. When time spent is documented, it refers only to time spent today by the signer, or if indicated, combined time spent today by collaborating physician/nurse practitioner.
[2018-09-02] MEDS: Norepinephrine Inj 4 MG in Sodium Chlor 0.9% Inj 246 ML IV.SIG PRN (00:35)
[2018-09-02] MEDS: Chlorhexidine Gluconate 2% 1 Pack (2 Cloths) TOPICAL SCH (04:00)
[2018-09-02] MEDS: fentaNYL 10 mcg/mL Premix Drip 2,500 MCG/250 ML BAG IV.SIG PRN (04:24)
[2018-09-02] MEDS: Aztreonam Inj 2 GM in Sodium Chloride 0.9% Inj 100 ML IV.SIG SCH ×3 (05:58→21:42)
[2018-09-02] MEDS: Hydrocortisone Sod Succinate 100 MG Vial IV.PUSH SCH ×3 (05:59→21:41)
[2018-09-02] MEDS: Levothyroxine 75 MCG Tablet PO SCH (06:00)
[2018-09-02] MEDS: Sodium Bicarbonate 8.4% Inj 150 MEQ in Water for Inj, Sterile 850 ML IV.CONT SCH ×2 (06:01→11:16)
[2018-09-02] MEDS: Oral Hygiene Kit OROPHARYNG SCH ×4 (06:01→23:51)
[2018-09-02] MEDS: Insulin NovoLIN Regular Correctional Sugar Inj SQ SCH ×4 (06:57→23:46)
[2018-09-02] MEDS ORDERED: Magnesium Sulfate Inj 2 GM in Sodium Chlor 0.9% Inj 96 ML IV.SIG ONE (07:18)
[2018-09-02] MEDS ORDERED: Calcium Chloride Inj 1 GM in Dextrose 5% in Water Inj 100 ML IV.SIG ONE ×2 (07:19)
[2018-09-02 07:49] LABS: Baso % (Auto) 0.2 % (0.0-2.0); Hematocrit 31.9 % (39.0-51.0); Hemoglobin 10.6 gm/dL (13.0-17.0); Lymph # (Auto) 0.6 th/mm3 (1.0-4.8); Lymph % (Auto) 6.3 % (9.0-44.0); Mean Corpuscular HGB Conc 33.3 % (32.0-36.0); Mean Corpuscular Hemoglobin 30.8 pg (27.0-34.0); Mean Corpuscular Volume 92.6 fL (80.0-100.0); Mean Platelet Volume 8.7 fL (7.0-11.0); Mono # (Auto) 0.3 th/mm3 (0.0-0.9); Mono % (Auto) 3.4 % (0.0-8.0); Neut # (Auto) 8.4 th/mm3 (1.8-7.7); Neut % (Auto) 90.1 % (16.0-70.0); Platelet Count 172 th/mm3 (150-450); Red Blood Count 3.45 mil/mm3 (4.50-5.90); Red Cell Distribution Width 14.7 % (11.6-17.2); White Blood Count 9.3 th/mm3 (4.0-11.0)
[2018-09-02 07:59] LABS: Prothrombin Time 89.3 sec (9.8-11.6)
[2018-09-02 08:20] LABS: Albumin 2.7 g/dL (3.4-5.0); Carbon Dioxide 28.5 meq/L (21.0-32.0); Potassium 3.9 meq/L (3.5-5.1); Total Protein 5.2 g/dL (6.4-8.2)
--- NOTE | 2018-09-02 08:31 | XR ---
EXAM DATE: 09/02/2018 8:25 AM EDT AGE/SEX: 83 years / Male INDICATIONS: Respiratory failure. CLINICAL DATA: This is the patient's subsequent encounter. Patient reports that signs and symptoms h ave been present for 4 - 6 days and indicates a pain score of Nonresponsive. MEDICAL/SURGICAL HISTORY: . Hypertension. Chronic obstructive pulmonary disease. Congestive hea rt failure. A-Fib. RVR. . CABG. Pacemaker. COMPARISON: [facility], CHEST 1V SINGLE AP, 09/01/2018. . FINDINGS: ET tube and pacer in good position. Atrial clip is noted. Heart is enlarged. Moderate interstitial ch anges are evident with consolidative changes developing on the left. Mild degenerative changes about both shoulders. CONCLUSION: Increasing parenchymal changes on the right. Electronically signed by: Heraclio Marcus MD 09/02/2018 8:30 AM EDT
[2018-09-02 08:47] LABS: Lymphocytes 6 % (9-44); Monocytes 2 % (0-8); Tallied Nucleated RBC 1 (0-0)
[2018-09-02 08:48] LABS: Platelet Estimate Normal (Normal); Platelet Morphology Normal (Normal); Toxic Granulation 1+; Toxic Vacuolation Present
[2018-09-02] MEDS: Albumin Human 25% Inj 50 ML IV.SIG SCH ×2 (08:57→20:25)
[2018-09-02] MEDS: Famotidine PF Inj 20 MG/2 ML Vial IV.PUSH SCH ×2 (08:57→20:27)
[2018-09-02] MEDS: Chlorhexidine 0.12% Oral Kit 15 ML UDC OROPHARYNG SCH ×2 (08:58→20:26)
[2018-09-02 10:26] LABS: ABG Base Excess -0.7 mmol/L (-2-2); ABG PCO2 32 mmHg (38-42); ABG PO2 139 mmHG (61-120)
--- NOTE | 2018-09-02 11:18 | P.PNNP ---
Subjective Interval history: urine output has improved. Reduction in pressor requirement. is at the bedside. Acidosis improved, we will stop bicarbonate drip. Physical Exam Vital signs: Vital Signs 09/01/18 12:00 09/01/18 13:00 09/01/18 13:09 Temperature 98.4 F Pulse Rate 94 H 95 H Respiratory Rate 20 22 Blood Pressure 96/65 L Pulse Oximetry 99 99 09/01/18 14:00 09/01/18 15:00 09/01/18 16:00 Temperature 98.2 F Pulse Rate 89 87 75 Respiratory Rate 25 H Blood Pressure 106/60 Pulse Oximetry 99 09/01/18 16:35 09/01/18 19:00 09/01/18 20:00 Temperature 98.2 F Pulse Rate 74 81 73 Respiratory Rate 22 18 Blood Pressure 104/57 L Pulse Oximetry 99 98 09/01/18 20:10 09/01/18 20:15 09/01/18 21:00 Temperature Pulse Rate 72 81 Respiratory Rate 18 18 Blood Pressure Pulse Oximetry 97 09/01/18 22:00 09/01/18 23:00 09/02/18 00:00 Temperature 98.2 F Pulse Rate 82 71 74 Respiratory Rate 18 Blood Pressure 101/59 L Pulse Oximetry 97 09/02/18 00:56 09/02/18 00:59 09/02/18 01:00 Temperature Pulse Rate 72 73 Respiratory Rate 18 18 Blood Pressure Pulse Oximetry 97 09/02/18 02:00 09/02/18 03:00 09/02/18 04:00 Temperature 97.6 F Pulse Rate 72 71 68 Respiratory Rate 18 Blood Pressure 104/61 Pulse Oximetry 95 09/02/18 04:55 09/02/18 05:00 09/02/18 06:00 Temperature Pulse Rate 70 69 69 Respiratory Rate 24 Blood Pressure Pulse Oximetry 09/02/18 07:00 09/02/18 08:00 09/02/18 09:00 Temperature 98.1 F Pulse Rate 68 68 68 Respiratory Rate 14 18 Blood Pressure 98/56 L Pulse Oximetry 98 09/02/18 10:00 09/02/18 11:00 Temperature Pulse Rate 71 70 Respiratory Rate Blood Pressure Pulse Oximetry Intake & Output 09/01/18 09/02/18 09/02/18 18:59 06:59 18:59 Intake Total 3290 / 3290 2250 / 2250 536 / 536 Output Total 100 / 100 800 / 800 Balance 3190 / 3190 1450 / 1450 536 / 536 Weight 80.6 kg Intake: IV 3290 / 3290 2250 / 2250 536 / 536 Cordarone Inj 450 MG In D5W Inj 250 / 250 250 / 250 241 ML @ 1 MG/MIN 33.33 mls/hr IV.CONT TITRATE PRN Rx#: [id number] Dobutrex Inj 500 MG In D5W Inj 200 / 200 210 ML @ 2.5 MCG/KG/MIN 5.17 mls/hr IV.CONT .Q24H ANNITA Rx#: [id number] Neosynephrine Inj 80 MG In NS 800 / 800 Inj 492 ML @ 40 MCG/MIN 15 mls/ hr IV.CONT TITRATE PRN Rx#: [id number] Sodium Bicarbonate 8.4% Inj 150 1000 / 1000 1000 / 1000 235 / 235 MEQ In Sterile Water for Inj 850 ML @ 150 mls/hr IV.CONT . Q6H40M ANNITA Rx#:[id number] Flexbumin 25% Inj 50 ML @ 50 0 / 0 100 / 100 50 / 50 mls/hr IV.SIG Q12H ANNITA Rx#: [id number] Azithromycin Inj 500 MG In NS 250 / 250 Inj 250 ML @ 250 mls/hr IV.SIG Q24H ANNITA Rx#:[id number] Azactam Inj 2 GM In NS Inj 100 100 / 100 100 / 100 100 / 100 ML @ 200 mls/hr IV.SIG Q8H ANNITA Rx#:[id number] Calcium Chloride Inj 1 GM In 110 / 110 D5W Inj 100 ML @ 110 mls/hr IV. SIG ONCE ONE Rx#:[id number] Levophed Inj 4 MG In NS Inj 246 730 / 730 ML @ 2 MCG/MIN 7.5 mls/hr IV. SIG TITRATE PRN Rx#:[id number] Vitamin K Inj 10 MG In D5W Inj 51 / 51 50 ML @ 102 mls/hr IV.SIG STAT STA Rx#:[id number] Vancomycin Inj 500 MG In NS Inj 100 / 100 100 ML @ 200 mls/hr IV.SIG ONCE ONE Rx#:[id number] fentaNYL 10 mcg/mL Premix Drip 250 / 250 2,500 mcg In 250 ml @ 50 MCG/HR 5 mls/hr IV.SIG TITRATE PRN Rx #:[id number] Flagyl 500 MG Inj 100 ML @ 100 200 / 200 100 / 100 100 / 100 mls/hr IV.SIG Q8H ANNITA Rx#: [id number] Oral 0 / 0 Output: Urine 100 / 100 Urine Amount (Catheter) 800 / 800 Indwelling Urethral Catheter 800 / 800 Other: Date of Last Bowel Movement 08/29/18 # Bowel Movements 0 Narrative: General: Elderly gentleman intubated on mechanical ventilation, unresponsive. Cardio: NSR currently. wheezing bilaterally but no rhonchi or crackles are appreciated. GI: distended, I did not hear bowel sounds. Extremities: dependent edema. - Urinary Catheter Management Indwelling Urethral Catheter Cath placed during this visit: yes Reason for continuing: Hourly intake/output Insertion date: 08/31/18 Insertion time: 22:00 Assessment and Plan - Assessment (1) Acute kidney injury Code(s): N17.9 - Acute kidney failure, unspecified Status: Deleted Plan: Likely due to ATN due to hypoperfusion, possible sepsis. I will stop bicarbonate drip. Continue Bumex. Discussed with patient's who is aware of his multiple comorbidities and guarded prognosis. However she does want us to proceed with dialysis if it becomes necessary. There is no immediate need to initiate dialysis today. His urine output has improved. (2) Cardiomyopathy Code(s): I42.9 - Cardiomyopathy, unspecified Status: Chronic Plan: Acute on chronic systolic heart failure. Cardiology following. (3) Atrial fibrillation with rapid ventricular response Code(s): I48.91 - Unspecified atrial fibrillation Status: Acute Plan: s/p cardioversion. (4) Transaminitis Code(s): R74.0 - Nonspecific elevation of levels of transaminase and lactic acid dehydrogenase [LDH] Status: Deleted Plan: Due to ischemic hepatitis. Improving.
--- NOTE | 2018-09-02 11:57 | P.PNFP ---
Subjective Interval history: Patient currently intubated and mechanically ventilated. FiO2 of 40% at bedside. Spoke with Palliative care. Understands patient's condition. Still wants aggressive care. Patient able to respond with shaking of head and feet. Denies pain. Able to follow directions, such as squeezing figures. UOP improved Bicarb drip discontinued s/p electrical cardioversion yesterday s/p 2 units of FFP yesterday s/p Vit. K this morning for elevated INR Blood culture on 08/31 positive for strep. viridans Currently on dobutamine 2.5mcg/kg and amiodarone 1mg/min <Ashanti Bloom T - 09/02/18 15:36> Results - Labs Result diagrams: 09/02/18 07:30 09/02/18 07:30 <Tiago Le - 09/02/18 16:10> Abnormal lab results 09/01/18 09/01/18 09/01/18 Range/Units 17:04 17:20 17:20 RBC (4.50-5.90) mil/mm3 Hgb (13.0-17.0) gm/dL Hct (39.0-51.0) % Neut % (Auto) (16.0-70.0) % Lymph % (Auto) (9.0-44.0) % Neut # (Auto) (1.8-7.7) th/mm3 Lymph # (Auto) (1.0-4.8) th/mm3 Seg Neuts % (Manual) (16-70) % Lymphocytes % (Manual) (9-44) % Abs Neuts (Manual) (1.8-7.7) th/mm3 Nucleated RBCs/100 WBC (0-0) /100 WBC Toxic Granulation (None) Toxic Vacuolation (None) PT (9.8-11.6) sec INR Ratio ABG pH 7.55 H* (7.380-7.420) ABG pCO2 22 L* (38-42) mmHg ABG pO2 173 H (61-120) mmHG ABG HCO3 19 L (22-26) mmol/L ABG Base Excess -3.0 L (-2-2) mmol/L Hemoglobin 10.1 L (12.0-16.0) G/DL Chloride (98-107) meq/L Anion Gap 18 H (5-15) meq/L BUN 51 H (7-18) mg/dL Creatinine 3.28 H (0.60-1.30) mg/dL Estimated GFR 18 L (>89) mL/min POC Glucose (68-110) mg/dl Random Glucose 272 H (74-106) mg/dL Lactic Acid 6.8 H* (0.4-2.0) mmol/L Calcium 6.8 L* (8.5-10.1) mg/dL Prot Corrected Calcium 7.8 L (8.5-10.1) mg/dL Total Bilirubin 2.7 H (0.2-1.0) mg/dL AST 95589 H (15-37) U/L ALT 5779 H (12-78) U/L Troponin I 1.62 H* (0.02-0.05) ng/mL Total Protein 5.2 L (6.4-8.2) g/dL Albumin 2.7 L (3.4-5.0) g/dL 09/01/18 09/01/18 09/01/18 Range/Units 17:20 17:52 23:28 RBC (4.50-5.90) mil/mm3 Hgb (13.0-17.0) gm/dL Hct (39.0-51.0) % Neut % (Auto) (16.0-70.0) % Lymph % (Auto) (9.0-44.0) % Neut # (Auto) (1.8-7.7) th/mm3 Lymph # (Auto) (1.0-4.8) th/mm3 Seg Neuts % (Manual) (16-70) % Lymphocytes % (Manual) (9-44) % Abs Neuts (Manual) (1.8-7.7) th/mm3 Nucleated RBCs/100 WBC (0-0) /100 WBC Toxic Granulation (None) Toxic Vacuolation (None) PT 86.7 H D (9.8-11.6) sec INR 8.7 H* Ratio ABG pH (7.380-7.420) ABG pCO2 (38-42) mmHg ABG pO2 (61-120) mmHG ABG HCO3 (22-26) mmol/L ABG Base Excess (-2-2) mmol/L Hemoglobin (12.0-16.0) G/DL Chloride (98-107) meq/L Anion Gap (5-15) meq/L BUN (7-18) mg/dL Creatinine (0.60-1.30) mg/dL Estimated GFR (>89) mL/min POC Glucose 265 H 234 H (68-110) mg/dl Random Glucose (74-106) mg/dL Lactic Acid (0.4-2.0) mmol/L Calcium (8.5-10.1) mg/dL Prot Corrected Calcium (8.5-10.1) mg/dL Total Bilirubin (0.2-1.0) mg/dL AST (15-37) U/L ALT (12-78) U/L Troponin I (0.02-0.05) ng/mL Total Protein (6.4-8.2) g/dL Albumin (3.4-5.0) g/dL 09/02/18 09/02/18 09/02/18 Range/Units 06:23 07:30 07:30 RBC 3.45 L (4.50-5.90) mil/mm3 Hgb 10.6 L (13.0-17.0) gm/dL Hct 31.9 L (39.0-51.0) % Neut % (Auto) 90.1 H (16.0-70.0) % Lymph % (Auto) 6.3 L (9.0-44.0) % Neut # (Auto) 8.4 H (1.8-7.7) th/mm3 Lymph # (Auto) 0.6 L (1.0-4.8) th/mm3 Seg Neuts % (Manual) 86 H (16-70) % Lymphocytes % (Manual) 6 L (9-44) % Abs Neuts (Manual) 8.6 H (1.8-7.7) th/mm3 Nucleated RBCs/100 WBC 1 H (0-0) /100 WBC Toxic Granulation 1+ H (None) Toxic Vacuolation Present H (None) PT (9.8-11.6) sec INR Ratio ABG pH (7.380-7.420) ABG pCO2 (38-42) mmHg ABG pO2 (61-120) mmHG ABG HCO3 (22-26) mmol/L ABG Base Excess (-2-2) mmol/L Hemoglobin (12.0-16.0) G/DL Chloride (98-107) meq/L Anion Gap (5-15) meq/L BUN (7-18) mg/dL Creatinine (0.60-1.30) mg/dL Estimated GFR (>89) mL/min POC Glucose 200 H (68-110) mg/dl Random Glucose (74-106) mg/dL Lactic Acid 4.5 H* (0.4-2.0) mmol/L Calcium (8.5-10.1) mg/dL Prot Corrected Calcium (8.5-10.1) mg/dL Total Bilirubin (0.2-1.0) mg/dL AST (15-37) U/L ALT (12-78) U/L Troponin I (0.02-0.05) ng/mL Total Protein (6.4-8.2) g/dL Albumin (3.4-5.0) g/dL 09/02/18 09/02/18 09/02/18 Range/Units 07:30 07:30 10:00 RBC (4.50-5.90) mil/mm3 Hgb (13.0-17.0) gm/dL Hct (39.0-51.0) % Neut % (Auto) (16.0-70.0) % Lymph % (Auto) (9.0-44.0) % Neut # (Auto) (1.8-7.7) th/mm3 Lymph # (Auto) (1.0-4.8) th/mm3 Seg Neuts % (Manual) (16-70) % Lymphocytes % (Manual) (9-44) % Abs Neuts (Manual) (1.8-7.7) th/mm3 Nucleated RBCs/100 WBC (0-0) /100 WBC Toxic Granulation (None) Toxic Vacuolation (None) PT 89.3 H (9.8-11.6) sec INR 9.0 H* Ratio ABG pH 7.47 H (7.380-7.420) ABG pCO2 32 L (38-42) mmHg ABG pO2 139 H (61-120) mmHG ABG HCO3 (22-26) mmol/L ABG Base Excess (-2-2) mmol/L Hemoglobin 10.4 L (12.0-16.0) G/DL Chloride 96 L (98-107) meq/L Anion Gap (5-15) meq/L BUN 65 H (7-18) mg/dL Creatinine 3.52 H (0.60-1.30) mg/dL Estimated GFR 17 L (>89) mL/min POC Glucose (68-110) mg/dl Random Glucose 193 H (74-106) mg/dL Lactic Acid (0.4-2.0) mmol/L Calcium 7.0 L* (8.5-10.1) mg/dL Prot Corrected Calcium 8.0 L (8.5-10.1) mg/dL Total Bilirubin 3.0 H (0.2-1.0) mg/dL AST 8258 H (15-37) U/L ALT 5179 H (12-78) U/L Troponin I (0.02-0.05) ng/mL Total Protein 5.2 L (6.4-8.2) g/dL Albumin 2.7 L (3.4-5.0) g/dL 09/02/18 Range/Units 11:22 RBC (4.50-5.90) mil/mm3 Hgb (13.0-17.0) gm/dL Hct (39.0-51.0) % Neut % (Auto) (16.0-70.0) % Lymph % (Auto) (9.0-44.0) % Neut # (Auto) (1.8-7.7) th/mm3 Lymph # (Auto) (1.0-4.8) th/mm3 Seg Neuts % (Manual) (16-70) % Lymphocytes % (Manual) (9-44) % Abs Neuts (Manual) (1.8-7.7) th/mm3 Nucleated RBCs/100 WBC (0-0) /100 WBC Toxic Granulation (None) Toxic Vacuolation (None) PT (9.8-11.6) sec INR Ratio ABG pH (7.380-7.420) ABG pCO2 (38-42) mmHg ABG pO2 (61-120) mmHG ABG HCO3 (22-26) mmol/L ABG Base Excess (-2-2) mmol/L Hemoglobin (12.0-16.0) G/DL Chloride (98-107) meq/L Anion Gap (5-15) meq/L BUN (7-18) mg/dL Creatinine (0.60-1.30) mg/dL Estimated GFR (>89) mL/min POC Glucose 149 H (68-110) mg/dl Random Glucose (74-106) mg/dL Lactic Acid (0.4-2.0) mmol/L Calcium (8.5-10.1) mg/dL Prot Corrected Calcium (8.5-10.1) mg/dL Total Bilirubin (0.2-1.0) mg/dL AST (15-37) U/L ALT (12-78) U/L Troponin I (0.02-0.05) ng/mL Total Protein (6.4-8.2) g/dL Albumin (3.4-5.0) g/dL Short CBC 09/02/18 Range/Units 07:30 WBC 9.3 (4.0-11.0) th/mm3 Hgb 10.6 L (13.0-17.0) gm/dL Hct 31.9 L (39.0-51.0) % Plt Count 172 D (150-450) th/mm3 BMP 09/01/18 09/02/18 17:20 07:30 Sodium 137 137 Potassium 4.1 3.9 Chloride 98 96 L Carbon Dioxide 21.1 28.5 BUN 51 H 65 H Creatinine 3.28 H 3.52 H Calcium 6.8 L* 7.0 L* Cardiac Enzymes 09/01/18 Range/Units 17:20 Troponin I 1.62 H* (0.02-0.05) ng/mL Liver Function 09/01/18 09/02/18 Range/Units 17:20 07:30 Total Bilirubin 2.7 H 3.0 H (0.2-1.0) mg/dL AST 87732 H 8258 H (15-37) U/L ALT 5779 H 5179 H (12-78) U/L Alkaline Phosphatase 73 78 (45-117) U/L Albumin 2.7 L 2.7 L (3.4-5.0) g/dL <Tiago Le L - 09/02/18 16:10> Abnormal lab results 08/31/18 09/01/18 09/01/18 Range/Units 21:30 12:06 13:41 RBC (4.50-5.90) mil/mm3 Hgb (13.0-17.0) gm/dL Hct (39.0-51.0) % Neut % (Auto) (16.0-70.0) % Lymph % (Auto) (9.0-44.0) % Neut # (Auto) (1.8-7.7) th/mm3 Lymph # (Auto) (1.0-4.8) th/mm3 Seg Neuts % (Manual) (16-70) % Lymphocytes % (Manual) (9-44) % Abs Neuts (Manual) (1.8-7.7) th/mm3 Nucleated RBCs/100 WBC (0-0) /100 WBC Toxic Granulation (None) Toxic Vacuolation (None) PT (9.8-11.6) sec INR Ratio ABG pH 7.24 L* (7.320-7.420) ABG pCO2 32 L (38-42) mmHg ABG pO2 448 H (60-120) mmHg ABG HCO3 32 H (22-26) mmol/L ABG Base Excess 13.0 H (-2-2) mmol/L Hemoglobin (12.0-16.0) G/DL Chloride (98-107) meq/L Anion Gap (5-15) meq/L BUN (7-18) mg/dL Creatinine (0.60-1.30) mg/dL Estimated GFR (>89) mL/min POC Glucose 311 H (68-110) mg/dl Random Glucose (74-106) mg/dL Lactic Acid 10.2 H* (0.4-2.0) mmol/L Calcium (8.5-10.1) mg/dL Prot Corrected Calcium (8.5-10.1) mg/dL Total Bilirubin (0.2-1.0) mg/dL AST (15-37) U/L ALT (12-78) U/L Troponin I (0.02-0.05) ng/mL Total Protein (6.4-8.2) g/dL Albumin (3.4-5.0) g/dL 09/01/18 09/01/18 09/01/18 Range/Units 15:51 17:04 17:20 RBC (4.50-5.90) mil/mm3 Hgb (13.0-17.0) gm/dL Hct (39.0-51.0) % Neut % (Auto) (16.0-70.0) % Lymph % (Auto) (9.0-44.0) % Neut # (Auto) (1.8-7.7) th/mm3 Lymph # (Auto) (1.0-4.8) th/mm3 Seg Neuts % (Manual) (16-70) % Lymphocytes % (Manual) (9-44) % Abs Neuts (Manual) (1.8-7.7) th/mm3 Nucleated RBCs/100 WBC (0-0) /100 WBC Toxic Granulation (None) Toxic Vacuolation (None) PT (9.8-11.6) sec INR Ratio ABG pH 7.55 H* (7.320-7.420) ABG pCO2 22 L* (38-42) mmHg ABG pO2 173 H (60-120) mmHg ABG HCO3 19 L (22-26) mmol/L ABG Base Excess -3.0 L (-2-2) mmol/L Hemoglobin 10.1 L (12.0-16.0) G/DL Chloride (98-107) meq/L Anion Gap (5-15) meq/L BUN (7-18) mg/dL Creatinine (0.60-1.30) mg/dL Estimated GFR (>89) mL/min POC Glucose 304 H (68-110) mg/dl Random Glucose (74-106) mg/dL Lactic Acid 6.8 H* (0.4-2.0) mmol/L Calcium (8.5-10.1) mg/dL Prot Corrected Calcium (8.5-10.1) mg/dL Total Bilirubin (0.2-1.0) mg/dL AST (15-37) U/L ALT (12-78) U/L Troponin I (0.02-0.05) ng/mL Total Protein (6.4-8.2) g/dL Albumin (3.4-5.0) g/dL 09/01/18 09/01/18 09/01/18 Range/Units 17:20 17:20 17:52 RBC (4.50-5.90) mil/mm3 Hgb (13.0-17.0) gm/dL Hct (39.0-51.0) % Neut % (Auto) (16.0-70.0) % Lymph % (Auto) (9.0-44.0) % Neut # (Auto) (1.8-7.7) th/mm3 Lymph # (Auto) (1.0-4.8) th/mm3 Seg Neuts % (Manual) (16-70) % Lymphocytes % (Manual) (9-44) % Abs Neuts (Manual) (1.8-7.7) th/mm3 Nucleated RBCs/100 WBC (0-0) /100 WBC Toxic Granulation (None) Toxic Vacuolation (None) PT 86.7 H D (9.8-11.6) sec INR 8.7 H* Ratio ABG pH (7.320-7.420) ABG pCO2 (38-42) mmHg ABG pO2 (60-120) mmHg ABG HCO3 (22-26) mmol/L ABG Base Excess (-2-2) mmol/L Hemoglobin (12.0-16.0) G/DL Chloride (98-107) meq/L Anion Gap 18 H (5-15) meq/L BUN 51 H (7-18) mg/dL Creatinine 3.28 H (0.60-1.30) mg/dL Estimated GFR 18 L (>89) mL/min POC Glucose 265 H (68-110) mg/dl Random Glucose 272 H (74-106) mg/dL Lactic Acid (0.4-2.0) mmol/L Calcium 6.8 L* (8.5-10.1) mg/dL Prot Corrected Calcium 7.8 L (8.5-10.1) mg/dL Total Bilirubin 2.7 H (0.2-1.0) mg/dL AST 75349 H (15-37) U/L ALT 5779 H (12-78) U/L Troponin I 1.62 H* (0.02-0.05) ng/mL Total Protein 5.2 L (6.4-8.2) g/dL Albumin 2.7 L (3.4-5.0) g/dL 09/01/18 09/02/18 09/02/18 Range/Units 23:28 06:23 07:30 RBC (4.50-5.90) mil/mm3 Hgb (13.0-17.0) gm/dL Hct (39.0-51.0) % Neut % (Auto) (16.0-70.0) % Lymph % (Auto) (9.0-44.0) % Neut # (Auto) (1.8-7.7) th/mm3 Lymph # (Auto) (1.0-4.8) th/mm3 Seg Neuts % (Manual) (16-70) % Lymphocytes % (Manual) (9-44) % Abs Neuts (Manual) (1.8-7.7) th/mm3 Nucleated RBCs/100 WBC (0-0) /100 WBC Toxic Granulation (None) Toxic Vacuolation (None) PT (9.8-11.6) sec INR Ratio ABG pH (7.320-7.420) ABG pCO2 (38-42) mmHg ABG pO2 (60-120) mmHg ABG HCO3 (22-26) mmol/L ABG Base Excess (-2-2) mmol/L Hemoglobin (12.0-16.0) G/DL Chloride (98-107) meq/L Anion Gap (5-15) meq/L BUN (7-18) mg/dL Creatinine (0.60-1.30) mg/dL Estimated GFR (>89) mL/min POC Glucose 234 H 200 H (68-110) mg/dl Random Glucose (74-106) mg/dL Lactic Acid 4.5 H* (0.4-2.0) mmol/L Calcium (8.5-10.1) mg/dL Prot Corrected Calcium (8.5-10.1) mg/dL Total Bilirubin (0.2-1.0) mg/dL AST (15-37) U/L ALT (12-78) U/L Troponin I (0.02-0.05) ng/mL Total Protein (6.4-8.2) g/dL Albumin (3.4-5.0) g/dL 09/02/18 09/02/18 09/02/18 Range/Units 07:30 07:30 07:30 RBC 3.45 L (4.50-5.90) mil/mm3 Hgb 10.6 L (13.0-17.0) gm/dL Hct 31.9 L (39.0-51.0) % Neut % (Auto) 90.1 H (16.0-70.0) % Lymph % (Auto) 6.3 L (9.0-44.0) % Neut # (Auto) 8.4 H (1.8-7.7) th/mm3 Lymph # (Auto) 0.6 L (1.0-4.8) th/mm3 Seg Neuts % (Manual) 86 H (16-70) % Lymphocytes % (Manual) 6 L (9-44) % Abs Neuts (Manual) 8.6 H (1.8-7.7) th/mm3 Nucleated RBCs/100 WBC 1 H (0-0) /100 WBC Toxic Granulation 1+ H (None) Toxic Vacuolation Present H (None) PT 89.3 H (9.8-11.6) sec INR 9.0 H* Ratio ABG pH (7.320-7.420) ABG pCO2 (38-42) mmHg ABG pO2 (60-120) mmHg ABG HCO3 (22-26) mmol/L ABG Base Excess (-2-2) mmol/L Hemoglobin (12.0-16.0) G/DL Chloride 96 L (98-107) meq/L Anion Gap (5-15) meq/L BUN 65 H (7-18) mg/dL Creatinine 3.52 H (0.60-1.30) mg/dL Estimated GFR 17 L (>89) mL/min POC Glucose (68-110) mg/dl Random Glucose 193 H (74-106) mg/dL Lactic Acid (0.4-2.0) mmol/L Calcium 7.0 L* (8.5-10.1) mg/dL Prot Corrected Calcium 8.0 L (8.5-10.1) mg/dL Total Bilirubin 3.0 H (0.2-1.0) mg/dL AST 8258 H (15-37) U/L ALT 5179 H (12-78) U/L Troponin I (0.02-0.05) ng/mL Total Protein 5.2 L (6.4-8.2) g/dL Albumin 2.7 L (3.4-5.0) g/dL 09/02/18 09/02/18 Range/Units 10:00 11:22 RBC (4.50-5.90) mil/mm3 Hgb (13.0-17.0) gm/dL Hct (39.0-51.0) % Neut % (Auto) (16.0-70.0) % Lymph % (Auto) (9.0-44.0) % Neut # (Auto) (1.8-7.7) th/mm3 Lymph # (Auto) (1.0-4.8) th/mm3 Seg Neuts % (Manual) (16-70) % Lymphocytes % (Manual) (9-44) % Abs Neuts (Manual) (1.8-7.7) th/mm3 Nucleated RBCs/100 WBC (0-0) /100 WBC Toxic Granulation (None) Toxic Vacuolation (None) PT (9.8-11.6) sec INR Ratio ABG pH 7.47 H (7.320-7.420) ABG pCO2 32 L (38-42) mmHg ABG pO2 139 H (60-120) mmHg ABG HCO3 (22-26) mmol/L ABG Base Excess (-2-2) mmol/L Hemoglobin 10.4 L (12.0-16.0) G/DL Chloride (98-107) meq/L Anion Gap (5-15) meq/L BUN (7-18) mg/dL Creatinine (0.60-1.30) mg/dL Estimated GFR (>89) mL/min POC Glucose 149 H (68-110) mg/dl Random Glucose (74-106) mg/dL Lactic Acid (0.4-2.0) mmol/L Calcium (8.5-10.1) mg/dL Prot Corrected Calcium (8.5-10.1) mg/dL Total Bilirubin (0.2-1.0) mg/dL AST (15-37) U/L ALT (12-78) U/L Troponin I (0.02-0.05) ng/mL Total Protein (6.4-8.2) g/dL Albumin (3.4-5.0) g/dL Short CBC 09/02/18 Range/Units 07:30 WBC 9.3 (4.0-11.0) th/mm3 Hgb 10.6 L (13.0-17.0) gm/dL Hct 31.9 L (39.0-51.0) % Plt Count 172 D (150-450) th/mm3 BMP 09/01/18 09/02/18 17:20 07:30 Sodium 137 137 Potassium 4.1 3.9 Chloride 98 96 L Carbon Dioxide 21.1 28.5 BUN 51 H 65 H Creatinine 3.28 H 3.52 H Calcium 6.8 L* 7.0 L* Cardiac Enzymes 09/01/18 Range/Units 17:20 Troponin I 1.62 H* (0.02-0.05) ng/mL Liver Function 09/01/18 09/02/18 Range/Units 17:20 07:30 Total Bilirubin 2.7 H 3.0 H (0.2-1.0) mg/dL AST 65806 H 8258 H (15-37) U/L ALT 5779 H 5179 H (12-78) U/L Alkaline Phosphatase 73 78 (45-117) U/L Albumin 2.7 L 2.7 L (3.4-5.0) g/dL <Ashanti Bloom T - 09/02/18 11:57> - Imaging Impressions Chest X-Ray 09/02/18 07:20 CONCLUSION: Increasing parenchymal changes on the right. <Tiaog Le L - 09/02/18 16:10> Impressions Chest X-Ray 09/02/18 07:20 CONCLUSION: Increasing parenchymal changes on the right. <Ashanti Bloom T - 09/02/18 11:57> Physical Exam Vital signs: Vital Signs 09/01/18 16:35 09/01/18 19:00 09/01/18 20:00 Temperature 98.2 F Pulse Rate 74 81 73 Respiratory Rate 22 18 Blood Pressure 104/57 L Pulse Oximetry 99 98 09/01/18 20:10 09/01/18 20:15 09/01/18 21:00 Temperature Pulse Rate 72 81 Respiratory Rate 18 18 Blood Pressure Pulse Oximetry 97 09/01/18 22:00 09/01/18 23:00 09/02/18 00:00 Temperature 98.2 F Pulse Rate 82 71 74 Respiratory Rate 18 Blood Pressure 101/59 L Pulse Oximetry 97 09/02/18 00:56 09/02/18 00:59 09/02/18 01:00 Temperature Pulse Rate 72 73 Respiratory Rate 18 18 Blood Pressure Pulse Oximetry 97 09/02/18 02:00 09/02/18 03:00 09/02/18 04:00 Temperature 97.6 F Pulse Rate 72 71 68 Respiratory Rate 18 Blood Pressure 104/61 Pulse Oximetry 95 09/02/18 04:55 09/02/18 05:00 09/02/18 06:00 Temperature Pulse Rate 70 69 69 Respiratory Rate 24 Blood Pressure Pulse Oximetry 09/02/18 07:00 09/02/18 08:00 09/02/18 09:00 Temperature 98.1 F Pulse Rate 68 68 68 Respiratory Rate 14 18 Blood Pressure 98/56 L Pulse Oximetry 98 09/02/18 10:00 09/02/18 11:00 09/02/18 12:00 Temperature 97.6 F Pulse Rate 71 68 68 Respiratory Rate 17 14 Blood Pressure 101/60 Pulse Oximetry 99 09/02/18 13:00 09/02/18 14:00 09/02/18 15:00 Temperature Pulse Rate 70 71 73 Respiratory Rate Blood Pressure Pulse Oximetry Intake & Output 09/01/18 09/02/18 09/02/18 18:59 06:59 18:59 Intake Total 3290 / 3290 2250 / 2250 1711 / 1711 Output Total 100 / 100 800 / 800 Balance 3190 / 3190 1450 / 1450 1711 / 1711 Weight 80.6 kg Intake: IV 3290 / 3290 2250 / 2250 1711 / 1711 Cordarone Inj 450 MG In D5W Inj 250 / 250 250 / 250 250 / 250 241 ML @ 1 MG/MIN 33.33 mls/hr IV.CONT TITRATE PRN Rx#: [id number] Dobutrex Inj 500 MG In D5W Inj 200 / 200 210 ML @ 2.5 MCG/KG/MIN 5.17 mls/hr IV.CONT .Q24H [facility] Rx#: [id number] Neosynephrine Inj 80 MG In NS 800 / 800 Inj 492 ML @ 40 MCG/MIN 15 mls/ hr IV.CONT TITRATE PRN Rx#: [id number] Sodium Bicarbonate 8.4% Inj 150 1000 / 1000 1000 / 1000 235 / 235 MEQ In Sterile Water for Inj 850 ML @ 150 mls/hr IV.CONT . Q6H40M [facility] Rx#:[id number] Flexbumin 25% Inj 50 ML @ 50 0 / 0 100 / 100 50 / 50 mls/hr IV.SIG Q12H [facility] Rx#: [id number] Azithromycin Inj 500 MG In NS 250 / 250 Inj 250 ML @ 250 mls/hr IV.SIG Q24H [facility] Rx#:[id number] Azactam Inj 2 GM In NS Inj 100 100 / 100 100 / 100 200 / 200 ML @ 200 mls/hr IV.SIG Q8H [facility] Rx#:[id number] Calcium Chloride Inj 1 GM In 110 / 110 110 / 110 D5W Inj 100 ML @ 110 mls/hr IV. SIG ONCE ONE Rx#:[id number] Magnesium Sulfate Inj 2 GM In 100 / 100 NS Inj 96 ML @ 50 mls/hr IV.SIG ONCE ONE Rx#:[id number] Levophed Inj 4 MG In NS Inj 246 730 / 730 ML @ 2 MCG/MIN 7.5 mls/hr IV. SIG TITRATE PRN Rx#:[id number] Vitamin K Inj 10 MG In D5W Inj 51 / 51 50 ML @ 102 mls/hr IV.SIG STAT STA Rx#:[id number] Vancomycin Inj 1,500 MG In NS 515 / 515 Inj 500 ML @ 250 mls/hr IV.SIG ONCE ONE Rx#:[id number] Vancomycin Inj 500 MG In NS Inj 100 / 100 100 ML @ 200 mls/hr IV.SIG ONCE ONE Rx#:[id number] fentaNYL 10 mcg/mL Premix Drip 250 / 250 2,500 mcg In 250 ml @ 50 MCG/HR 5 mls/hr IV.SIG TITRATE PRN Rx #:[id number] Flagyl 500 MG Inj 100 ML @ 100 200 / 200 100 / 100 200 / 200 mls/hr IV.SIG Q8H [facility] Rx#: [id number] Oral 0 / 0 Output: Urine 100 / 100 Urine Amount (Catheter) 800 / 800 Indwelling Urethral Catheter 800 / 800 Other: Date of Last Bowel Movement 08/29/18 # Bowel Movements 0 <Tiago Le L - 09/02/18 16:10> Vital Signs 09/01/18 12:00 09/01/18 13:00 09/01/18 13:09 Temperature 98.4 F Pulse Rate 94 H 95 H Respiratory Rate 20 22 Blood Pressure 96/65 L Pulse Oximetry 99 99 09/01/18 14:00 09/01/18 15:00 09/01/18 16:00 Temperature 98.2 F Pulse Rate 89 87 75 Respiratory Rate 25 H Blood Pressure 106/60 Pulse Oximetry 99 09/01/18 16:35 09/01/18 19:00 09/01/18 20:00 Temperature 98.2 F Pulse Rate 74 81 73 Respiratory Rate 22 18 Blood Pressure 104/57 L Pulse Oximetry 99 98 09/01/18 20:10 09/01/18 20:15 09/01/18 21:00 Temperature Pulse Rate 72 81 Respiratory Rate 18 18 Blood Pressure Pulse Oximetry 97 09/01/18 22:00 09/01/18 23:00 09/02/18 00:00 Temperature 98.2 F Pulse Rate 82 71 74 Respiratory Rate 18 Blood Pressure 101/59 L Pulse Oximetry 97 09/02/18 00:56 09/02/18 00:59 09/02/18 01:00 Temperature Pulse Rate 72 73 Respiratory Rate 18 18 Blood Pressure Pulse Oximetry 97 09/02/18 02:00 09/02/18 03:00 09/02/18 04:00 Temperature 97.6 F Pulse Rate 72 71 68 Respiratory Rate 18 Blood Pressure 104/61 Pulse Oximetry 95 09/02/18 04:55 09/02/18 05:00 09/02/18 06:00 Temperature Pulse Rate 70 69 69 Respiratory Rate 24 Blood Pressure Pulse Oximetry 09/02/18 07:00 09/02/18 08:00 09/02/18 09:00 Temperature 98.1 F Pulse Rate 68 68 68 Respiratory Rate 14 18 Blood Pressure 98/56 L Pulse Oximetry 98 09/02/18 10:00 09/02/18 11:00 Temperature Pulse Rate 71 70 Respiratory Rate Blood Pressure Pulse Oximetry Intake & Output 09/01/18 09/02/18 09/02/18 18:59 06:59 18:59 Intake Total 3290 / 3290 2250 / 2250 536 / 536 Output Total 100 / 100 800 / 800 Balance 3190 / 3190 1450 / 1450 536 / 536 Weight 80.6 kg Intake: IV 3290 / 3290 2250 / 2250 536 / 536 Cordarone Inj 450 MG In D5W Inj 250 / 250 250 / 250 241 ML @ 1 MG/MIN 33.33 mls/hr IV.CONT TITRATE PRN Rx#: [id number] Dobutrex Inj 500 MG In D5W Inj 200 / 200 210 ML @ 2.5 MCG/KG/MIN 5.17 mls/hr IV.CONT .Q24H [facility] Rx#: [id number] Neosynephrine Inj 80 MG In NS 800 / 800 Inj 492 ML @ 40 MCG/MIN 15 mls/ hr IV.CONT TITRATE PRN Rx#: [id number] Sodium Bicarbonate 8.4% Inj 150 1000 / 1000 1000 / 1000 235 / 235 MEQ In Sterile Water for Inj 850 ML @ 150 mls/hr IV.CONT . Q6H40M [facility] Rx#:[id number] Flexbumin 25% Inj 50 ML @ 50 0 / 0 100 / 100 50 / 50 mls/hr IV.SIG Q12H [facility] Rx#: [id number] Azithromycin Inj 500 MG In NS 250 / 250 Inj 250 ML @ 250 mls/hr IV.SIG Q24H [facility] Rx#:[id number] Azactam Inj 2 GM In NS Inj 100 100 / 100 100 / 100 100 / 100 ML @ 200 mls/hr IV.SIG Q8H [facility] Rx#:[id number] Calcium Chloride Inj 1 GM In 110 / 110 D5W Inj 100 ML @ 110 mls/hr IV. SIG ONCE ONE Rx#:[id number] Levophed Inj 4 MG In NS Inj 246 730 / 730 ML @ 2 MCG/MIN 7.5 mls/hr IV. SIG TITRATE PRN Rx#:[id number] Vitamin K Inj 10 MG In D5W Inj 51 / 51 50 ML @ 102 mls/hr IV.SIG STAT ST[facility] Rx#:[id number] Vancomycin Inj 500 MG In NS Inj 100 / 100 100 ML @ 200 mls/hr IV.SIG ONCE ONE Rx#:[id number] fentaNYL 10 mcg/mL Premix Drip 250 / 250 2,500 mcg In 250 ml @ 50 MCG/HR 5 mls/hr IV.SIG TITRATE PRN Rx #:[id number] Flagyl 500 MG Inj 100 ML @ 100 200 / 200 100 / 100 100 / 100 mls/hr IV.SIG Q8H [facility] Rx#: [id number] Oral 0 / 0 Output: Urine 100 / 100 Urine Amount (Catheter) 800 / 800 Indwelling Urethral Catheter 800 / 800 Other: Date of Last Bowel Movement 08/29/18 # Bowel Movements 0 <Ashanti Bloom T - 09/02/18 11:57> Narrative: General: Elderly gentleman intubated on mechanical ventilation but alert and responsive. Cardio: Regular rate and rhythm, Patient has subclavian central line in place. Pulmonary: Patient currently intubated and mechanically ventilated with an FiO2 of 40% and a PEEP setting of 4 with a respiratory rate of 17. Patient had mild wheezing bilaterally but no rhonchi or crackles are appreciated. GI: Abdomen soft, distended, distant bowel sounds heard, nontender on palpation Extremities: No cyanosis or edema Neuro: Patient was able to shake his head no when asked questions, and follow commands such as to wiggle his toes. Patient able to open his eyes, move his head, and attempted to speak but could not be understood. : kiser catheter in place, dark urine noted <Ashanti Bloom - 09/02/18 15:33> - Urinary Catheter Management Indwelling Urethral Catheter Cath placed during this visit: no <Tiago Le - 09/02/18 16:10> yes <Ashanti Bloom 09/02/18 15:36> Reason for continuing: Hourly intake/output <Ashanti Bloom - 09/02/18 11:57 > Insertion date: 08/31/18 <Ashanti Bloom 09/02/18 11:57> Insertion time: 22:00 <Ashanti Bloom T 09/02/18 11:57> Assessment and Plan - Assessment (1) Cardiogenic shock Code(s): R57.0 - Cardiogenic shock Status: Acute (2) Respiratory failure Code(s): J96.90 - Respiratory failure, unspecified, unspecified whether with hypoxia or hypercapnia Status: Acute (3) Shock liver Code(s): K72.00 - Acute and subacute hepatic failure without coma Status: Acute (4) Streptococcus viridans infection Code(s): A49.1 - Streptococcal infection, unspecified site Status: Acute (5) Bilateral pneumonia Code(s): J18.9 - Pneumonia, unspecified organism Status: Acute (6) Renal failure, acute on chronic Code(s): N17.9 - Acute kidney failure, unspecified; N18.9 - Chronic kidney disease, unspecified Status: Acute (7) Atrial fibrillation with rapid ventricular response Code(s): I48.91 - Unspecified atrial fibrillation Status: Acute (8) Cardiomyopathy Code(s): I42.9 - Cardiomyopathy, unspecified Status: Chronic (9) V-tach Code(s): I47.2 - Ventricular tachycardia Status: Chronic (10) Hyperlipidemia Code(s): E78.5 - Hyperlipidemia, unspecified Status: Acute (11) Hypothyroidism Code(s): E03.9 - Hypothyroidism, unspecified Status: Chronic <Tiago Le - 09/02/18 16:10> (1) Cardiogenic shock Code(s): R57.0 - Cardiogenic shock Status: Acute Plan: 83-year-old male with a history of A. fib , hypertension, hyperlipidemia, ICD presented to the ED with worsening shortness of breath. Originally admitted for A.fib with RVR. Patient transferred to the ICU on 08/31 for respiratory failure in the setting of cardiogenic shock. Currently intubated, mechanically ventilated. [employer] managing. -s/p electrical cardioversion 09/01, patient successfully converted to sinus rhythm -Phenylephrine titrated off and levophed discontinued -Currently on Dobutamine 2.6mcg/kg/min, amiodarone 1mg/min (2) Respiratory failure Code(s): J96.90 - Respiratory failure, unspecified, unspecified whether with hypoxia or hypercapnia Status: Acute Plan: Patient currently intubated and mechanically ventilated, 95% on 40% FiO2, a PEEP of 4 and a respiratory rate of 17. -Lactic acid trending down -Most recent ABG demonstrates pH of 7.47, HCO3 of 23, CO2 32 -DuoNeb every 4 hours (3) Shock liver Code(s): K72.00 - Acute and subacute hepatic failure without coma Status: Acute Plan: Liver enzymes fluctuating continue to monitor Patient received Vit. K this morning INR 9.0 today Will check repeat INR this afternoon, may need more Vit. K (4) Streptococcus viridans infection Code(s): A49.1 - Streptococcal infection, unspecified site Status: Acute Plan: Blood culture 08/31 1/2 positive for strep viridans Continue patient on aztreonam ID consulted, appreciate recommendations (5) Bilateral pneumonia Code(s): J18.9 - Pneumonia, unspecified organism Status: Acute Plan: CT of the chest demonstrated bilateral pneumonia particularly in the right upper lobe. Patient began on broad-spectrum antibiotics. Sputum Gram stain showed multiple white blood cells but no organisms. Patient status post 1 dose of vancomycin. -Strep pneumoniae antigen negative -Legionella antigen negative -Continue mechanical ventilation, PRVC/AC -DuoNeb every 4 hours scheduled and as needed -Continue azithromycin -Continue aztreonam (6) Renal failure, acute on chronic Code(s): N17.9 - Acute kidney failure, unspecified; N18.9 - Chronic kidney disease, unspecified Status: Acute Plan: Nephrology on board Likely due to ATN due to hypoperfusion, possible sepsis Discontinued Bicarb drip continue Bumex (7) Atrial fibrillation with rapid ventricular response Code(s): I48.91 - Unspecified atrial fibrillation Status: Acute Plan: Cardiology following s/p Cardioversion (8) Cardiomyopathy Code(s): I42.9 - Cardiomyopathy, unspecified Status: Chronic Plan: Echo 10/2017, EF=17%, LAE, LVH, PILY, Mod MR, Mod AI, Mod TR, aortic cusp thickening. * Please see plan above for cardiogenic shock (9) V-tach Code(s): I47.2 - Ventricular tachycardia Status: Chronic Plan: s/p ICD changed on 07/21/18 (10) Hyperlipidemia Code(s): E78.5 - Hyperlipidemia, unspecified Status: Acute Plan: Hold fenofibrate given acute LFT elevation (11) Hypothyroidism Code(s): E03.9 - Hypothyroidism, unspecified Status: Chronic Plan: TSH within normal limits, free T4 just above the upper limit of normal. -Continue levothyroxine 75mcg daily <Ashanti Bloom T - 09/02/18 15:33> - Attending Attestation The exam, history, and the medical decision-making described in the above note were completed with the assistance of the resident physician. I reviewed and agree with the findings presented. I attest that I had a [id number] encounter with the patient on the same day, and personally performed and documented my assessment and findings in the medical record. I evaluated the patient with the resident team this morning. Patient remains intubated, FIO2 40 , PEEP 5 this morning. Updated by the bedside on his condition and the plan. Metabolic acidosis is starting to improve. Antibiotics being given for sepsis/bacteremia. Bicarbonate drip now discontinued. Requiring pressors for blood pressure support. FFP and vitamin K given. Paint Specialist on board and helping to manage. <Tiago Le - 09/02/18 16:10> <Ashanti Bloom - Last Filed: 09/02/18 15:33> (6) Renal failure, acute on chronic Qualifiers: Acute renal failure type: unspecified Chronic kidney disease stage: unspecified stage Qualified Code(s): N17.9 - Acute kidney failure, unspecified ; N18.9 - Chronic kidney disease, unspecified <Tiago Le - Last Filed: 09/02/18 16:10> (6) Renal failure, acute on chronic Qualifiers: Acute renal failure type: unspecified Chronic kidney disease stage: unspecified stage Qualified Code(s): N17.9 - Acute kidney failure, unspecified ; N18.9 - Chronic kidney disease, unspecified <Ashanti Bloom - Last Filed: 09/02/18 15:33> (6) Renal failure, acute on chronic Qualifiers: Acute renal failure type: unspecified Chronic kidney disease stage: unspecified stage Qualified Code(s): N17.9 - Acute kidney failure, unspecified ; N18.9 - Chronic kidney disease, unspecified <Tiago Le - Last Filed: 09/02/18 16:10> (6) Renal failure, acute on chronic Qualifiers: Acute renal failure type: unspecified Chronic kidney disease stage: unspecified stage Qualified Code(s): N17.9 - Acute kidney failure, unspecified ; N18.9 - Chronic kidney disease, unspecified
[2018-09-02] MEDS ORDERED: Vancomycin Inj 1,500 MG in Sodium Chlor 0.9% Inj 500 ML IV.SIG ONE (12:00)
--- NOTE | 2018-09-02 13:30 | P.DS ---
Date of admission: 08/28/18 16:57 Primary care physician: Davy Walters MD Brief History from admission: 83-year-old male with a history of A. fib on Xarelto, hypertension, hyperlipidemia, ICD presents to the ED with worsening shortness of breath. Patient is here with his . PCP is Dr. Walters. Patient reports that he has had worsening intermittent shortness of breath for a few weeks. reports that patient was hunched over on the couch trying to breathe. Shortness of breath is worse on exertion. Patient states that when he was going to the bathroom he could not catch his breath. He states that he was getting go see Dr. Walters next week. He denies orthopnea, leg swelling, and chest pain. He states that his shortness of breath was relieved with oxygen. Patient had a defibrillator replaced about a month ago by Dr. Contreras. Patient reports decreased appetite since defibrillator was replaced. reports that he has lost 20 pounds in the past month. Endorses generalized weakness and fatigue. Denies fevers, night sweats, nausea vomiting, diarrhea, abdominal pain , dysuria, melena. 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 Lives in [place] Smoker- quit in 1961, 6 years, 2ppd Denies alcohol use and illicit drug use DS: Diagnosis - Discharge Diagnosis (1) Cardiogenic shock Status: Acute (2) Respiratory failure Status: Acute (3) Metabolic acidosis Status: Acute (4) Shock liver Status: Acute (5) Bilateral pneumonia Status: Acute (6) Renal failure, acute on chronic Status: Acute (7) Atrial fibrillation with rapid ventricular response Status: Acute (8) Cardiomyopathy Status: Chronic (9) V-tach Status: Chronic (10) Hyperlipidemia Status: Acute (11) Hypothyroidism Status: Chronic (12) Nutrition, metabolism, and development symptoms Status: Acute DS: Summary - Time Spent with Patient Total time spent providing and/or coordinating discharge services: - Quality: VTE Deep Vein Thrombosis/Pulmonary Embolism Present on Admission: No Exam Vital signs: Vital Signs 09/01/18 14:00 09/01/18 15:00 09/01/18 16:00 Temperature 98.2 F Pulse Rate 89 87 75 Respiratory Rate 25 H Blood Pressure 106/60 Pulse Oximetry 99 09/01/18 16:35 09/01/18 19:00 09/01/18 20:00 Temperature 98.2 F Pulse Rate 74 81 73 Respiratory Rate 22 18 Blood Pressure 104/57 L Pulse Oximetry 99 98 09/01/18 20:10 09/01/18 20:15 09/01/18 21:00 Temperature Pulse Rate 72 81 Respiratory Rate 18 18 Blood Pressure Pulse Oximetry 97 09/01/18 22:00 09/01/18 23:00 09/02/18 00:00 Temperature 98.2 F Pulse Rate 82 71 74 Respiratory Rate 18 Blood Pressure 101/59 L Pulse Oximetry 97 09/02/18 00:56 09/02/18 00:59 09/02/18 01:00 Temperature Pulse Rate 72 73 Respiratory Rate 18 18 Blood Pressure Pulse Oximetry 97 09/02/18 02:00 09/02/18 03:00 09/02/18 04:00 Temperature 97.6 F Pulse Rate 72 71 68 Respiratory Rate 18 Blood Pressure 104/61 Pulse Oximetry 95 09/02/18 04:55 09/02/18 05:00 09/02/18 06:00 Temperature Pulse Rate 70 69 69 Respiratory Rate 24 Blood Pressure Pulse Oximetry 09/02/18 07:00 09/02/18 08:00 09/02/18 09:00 Temperature 98.1 F Pulse Rate 68 68 68 Respiratory Rate 14 18 Blood Pressure 98/56 L Pulse Oximetry 98 09/02/18 10:00 09/02/18 11:00 09/02/18 12:00 Temperature 97.6 F Pulse Rate 71 68 68 Respiratory Rate 17 14 Blood Pressure 101/60 Pulse Oximetry 99 09/02/18 13:00 Temperature Pulse Rate 70 Respiratory Rate Blood Pressure Pulse Oximetry Intake & Output 09/01/18 09/02/18 09/02/18 18:59 06:59 18:59 Intake Total 3290 / 3290 2250 / 2250 896 / 896 Output Total 100 / 100 800 / 800 Balance 3190 / 3190 1450 / 1450 896 / 896 Weight 80.6 kg Intake: IV 3290 / 3290 2250 / 2250 896 / 896 Cordarone Inj 450 MG In D5W Inj 250 / 250 250 / 250 250 / 250 241 ML @ 1 MG/MIN 33.33 mls/hr IV.CONT TITRATE PRN Rx#: [id number] Dobutrex Inj 500 MG In D5W Inj 200 / 200 210 ML @ 2.5 MCG/KG/MIN 5.17 mls/hr IV.CONT .Q24H ANNITA Rx#: [id number] Neosynephrine Inj 80 MG In NS 800 / 800 Inj 492 ML @ 40 MCG/MIN 15 mls/ hr IV.CONT TITRATE PRN Rx#: [id number] Sodium Bicarbonate 8.4% Inj 150 1000 / 1000 1000 / 1000 235 / 235 MEQ In Sterile Water for Inj 850 ML @ 150 mls/hr IV.CONT . Q6H40M ANNITA Rx#:[id number] Flexbumin 25% Inj 50 ML @ 50 0 / 0 100 / 100 50 / 50 mls/hr IV.SIG Q12H ANNITA Rx#: [id number] Azithromycin Inj 500 MG In NS 250 / 250 Inj 250 ML @ 250 mls/hr IV.SIG Q24H ANNITA Rx#:[id number] Azactam Inj 2 GM In NS Inj 100 100 / 100 100 / 100 100 / 100 ML @ 200 mls/hr IV.SIG Q8H ANNITA Rx#:[id number] Calcium Chloride Inj 1 GM In 110 / 110 110 / 110 D5W Inj 100 ML @ 110 mls/hr IV. SIG ONCE ONE Rx#:[id number] Levophed Inj 4 MG In NS Inj 246 730 / 730 ML @ 2 MCG/MIN 7.5 mls/hr IV. SIG TITRATE PRN Rx#:[id number] Vitamin K Inj 10 MG In D5W Inj 51 / 51 50 ML @ 102 mls/hr IV.SIG STAT STA Rx#:[id number] Vancomycin Inj 500 MG In NS Inj 100 / 100 100 ML @ 200 mls/hr IV.SIG ONCE ONE Rx#:[id number] fentaNYL 10 mcg/mL Premix Drip 250 / 250 2,500 mcg In 250 ml @ 50 MCG/HR 5 mls/hr IV.SIG TITRATE PRN Rx #:[id number] Flagyl 500 MG Inj 100 ML @ 100 200 / 200 100 / 100 100 / 100 mls/hr IV.SIG Q8H ANNITA Rx#: [id number] Oral 0 / 0 Output: Urine 100 / 100 Urine Amount (Catheter) 800 / 800 Indwelling Urethral Catheter 800 / 800 Other: Date of Last Bowel Movement 08/29/18 # Bowel Movements 0 Results Labs on day of discharge: Labs from last 24 hours 09/02/18 09/02/18 09/02/18 11:22 10:00 07:30 WBC RBC Hgb Hct MCV MCH MCHC RDW Plt Count MPV Prelim Diff (Auto) Neut % (Auto) Lymph % (Auto) [place] % (Auto) Eos % (Auto) Baso % (Auto) Neut # (Auto) Lymph # (Auto) [place] # (Auto) Eos # (Auto) Baso # (Auto) WBC Differential Seg Neuts % (Manual) Band Neuts % (Manual) Lymphocytes % (Manual) Monocytes % (Manual) Abs Neuts (Manual) Nucleated RBCs/100 WBC Differential Comment Toxic Granulation Toxic Vacuolation Platelet Estimate Platelet Morphology PT INR Puncture Site Art line Patient Temperature 98.6 O2 Saturation 96 ABG pH 7.47 H ABG pCO2 32 L ABG pO2 139 H ABG HCO3 23 ABG O2 Content 14.4 ABG Base Excess -0.7 ABG Methemoglobin 1.7 Parveen Test Present Hemoglobin 10.4 L Carboxyhemoglobin 0.9 O2 Delivery Device Ventilator Vent Setting Ac/14/550/+5 Inspired O2 40 Critical Value No Sodium 137 Potassium 3.9 Chloride 96 L Carbon Dioxide 28.5 Anion Gap 13 BUN 65 H Creatinine 3.52 H Estimated GFR 17 L POC Glucose 149 H Random Glucose 193 H Lactic Acid Calcium 7.0 L* Prot Corrected Calcium 8.0 L Magnesium Total Bilirubin 3.0 H AST 8258 H ALT 5179 H Alkaline Phosphatase 78 Troponin I Total Protein 5.2 L Albumin 2.7 L Random Vancomycin 09/02/18 09/02/18 09/02/18 07:30 07:30 07:30 WBC 9.3 RBC 3.45 L Hgb 10.6 L Hct 31.9 L MCV 92.6 D MCH 30.8 MCHC 33.3 RDW 14.7 Plt Count 172 D MPV 8.7 Prelim Diff (Auto) Slide review pending Neut % (Auto) 90.1 H Lymph % (Auto) 6.3 L [place] % (Auto) 3.4 Eos % (Auto) 0.0 Baso % (Auto) 0.2 Neut # (Auto) 8.4 H Lymph # (Auto) 0.6 L [place] # (Auto) 0.3 Eos # (Auto) 0.0 Baso # (Auto) 0.0 WBC Differential Manual diff final Seg Neuts % (Manual) 86 H Band Neuts % (Manual) 6 Lymphocytes % (Manual) 6 L Monocytes % (Manual) 2 Abs Neuts (Manual) 8.6 H Nucleated RBCs/100 WBC 1 H Differential Comment . Toxic Granulation 1+ H Toxic Vacuolation Present H Platelet Estimate Normal Platelet Morphology Normal PT 89.3 H INR 9.0 H* Puncture Site Patient Temperature O2 Saturation ABG pH ABG pCO2 ABG pO2 ABG HCO3 ABG O2 Content ABG Base Excess ABG Methemoglobin Parveen Test Hemoglobin Carboxyhemoglobin O2 Delivery Device Vent Setting Inspired O2 Critical Value Sodium Potassium Chloride Carbon Dioxide Anion Gap BUN Creatinine Estimated GFR POC Glucose Random Glucose Lactic Acid 4.5 H* Calcium Prot Corrected Calcium Magnesium Total Bilirubin AST ALT Alkaline Phosphatase Troponin I Total Protein Albumin Random Vancomycin 09/02/18 09/02/18 09/01/18 07:30 06:23 23:28 WBC RBC Hgb Hct MCV MCH MCHC RDW Plt Count MPV Prelim Diff (Auto) Neut % (Auto) Lymph % (Auto) [place] % (Auto) Eos % (Auto) Baso % (Auto) Neut # (Auto) Lymph # (Auto) [place] # (Auto) Eos # (Auto) Baso # (Auto) WBC Differential Seg Neuts % (Manual) Band Neuts % (Manual) Lymphocytes % (Manual) Monocytes % (Manual) Abs Neuts (Manual) Nucleated RBCs/100 WBC Differential Comment Toxic Granulation Toxic Vacuolation Platelet Estimate Platelet Morphology PT INR Puncture Site Patient Temperature O2 Saturation ABG pH ABG pCO2 ABG pO2 ABG HCO3 ABG O2 Content ABG Base Excess ABG Methemoglobin Parveen Test Hemoglobin Carboxyhemoglobin O2 Delivery Device Vent Setting Inspired O2 Critical Value Sodium Potassium Chloride Carbon Dioxide Anion Gap BUN Creatinine Estimated GFR POC Glucose 200 H 234 H Random Glucose Lactic Acid Calcium Prot Corrected Calcium Magnesium Total Bilirubin AST ALT Alkaline Phosphatase Troponin I Total Protein Albumin Random Vancomycin 14.4 09/01/18 09/01/18 09/01/18 17:52 17:20 17:20 WBC RBC Hgb Hct MCV MCH MCHC RDW Plt Count MPV Prelim Diff (Auto) Neut % (Auto) Lymph % (Auto) [place] % (Auto) Eos % (Auto) Baso % (Auto) Neut # (Auto) Lymph # (Auto) [place] # (Auto) Eos # (Auto) Baso # (Auto) WBC Differential Seg Neuts % (Manual) Band Neuts % (Manual) Lymphocytes % (Manual) Monocytes % (Manual) Abs Neuts (Manual) Nucleated RBCs/100 WBC Differential Comment Toxic Granulation Toxic Vacuolation Platelet Estimate Platelet Morphology PT 86.7 H D INR 8.7 H* Puncture Site Patient Temperature O2 Saturation ABG pH ABG pCO2 ABG pO2 ABG HCO3 ABG O2 Content ABG Base Excess ABG Methemoglobin Parveen Test Hemoglobin Carboxyhemoglobin O2 Delivery Device Vent Setting Inspired O2 Critical Value Sodium 137 Potassium 4.1 Chloride 98 Carbon Dioxide 21.1 Anion Gap 18 H BUN 51 H Creatinine 3.28 H Estimated GFR 18 L POC Glucose 265 H Random Glucose 272 H Lactic Acid Calcium 6.8 L* Prot Corrected Calcium 7.8 L Magnesium 1.7 Total Bilirubin 2.7 H AST 92236 H ALT 5779 H Alkaline Phosphatase 73 Troponin I 1.62 H* Total Protein 5.2 L Albumin 2.7 L Random Vancomycin 09/01/18 09/01/18 09/01/18 17:20 17:04 15:51 WBC RBC Hgb Hct MCV MCH MCHC RDW Plt Count MPV Prelim Diff (Auto) Neut % (Auto) Lymph % (Auto) [place] % (Auto) Eos % (Auto) Baso % (Auto) Neut # (Auto) Lymph # (Auto) [place] # (Auto) Eos # (Auto) Baso # (Auto) WBC Differential Seg Neuts % (Manual) Band Neuts % (Manual) Lymphocytes % (Manual) Monocytes % (Manual) Abs Neuts (Manual) Nucleated RBCs/100 WBC Differential Comment Toxic Granulation Toxic Vacuolation Platelet Estimate Platelet Morphology PT INR Puncture Site Art line Patient Temperature 98.6 O2 Saturation 97 ABG pH 7.55 H* ABG pCO2 22 L* ABG pO2 173 H ABG HCO3 19 L ABG O2 Content 14.1 ABG Base Excess -3.0 L ABG Methemoglobin 1.7 Parveen Test Hemoglobin 10.1 L Carboxyhemoglobin 0.9 O2 Delivery Device Ventilator Vent Setting Prvc ac Inspired O2 50 Critical Value Yes Sodium Potassium Chloride Carbon Dioxide Anion Gap BUN Creatinine Estimated GFR POC Glucose 304 H Random Glucose Lactic Acid 6.8 H* Calcium Prot Corrected Calcium Magnesium Total Bilirubin AST ALT Alkaline Phosphatase Troponin I Total Protein Albumin Random Vancomycin 09/01/18 13:41 WBC RBC Hgb Hct MCV MCH MCHC RDW Plt Count MPV Prelim Diff (Auto) Neut % (Auto) Lymph % (Auto) [place] % (Auto) Eos % (Auto) Baso % (Auto) Neut # (Auto) Lymph # (Auto) [place] # (Auto) Eos # (Auto) Baso # (Auto) WBC Differential Seg Neuts % (Manual) Band Neuts % (Manual) Lymphocytes % (Manual) Monocytes % (Manual) Abs Neuts (Manual) Nucleated RBCs/100 WBC Differential Comment Toxic Granulation Toxic Vacuolation Platelet Estimate Platelet Morphology PT INR Puncture Site Patient Temperature O2 Saturation ABG pH ABG pCO2 ABG pO2 ABG HCO3 ABG O2 Content ABG Base Excess ABG Methemoglobin Parveen Test Hemoglobin Carboxyhemoglobin O2 Delivery Device Vent Setting Inspired O2 Critical Value Sodium Potassium Chloride Carbon Dioxide Anion Gap BUN Creatinine Estimated GFR POC Glucose 311 H Random Glucose Lactic Acid Calcium Prot Corrected Calcium Magnesium Total Bilirubin AST ALT Alkaline Phosphatase Troponin I Total Protein Albumin Random Vancomycin Preliminary micro results at discharge 09/01/18 00:05 Sputum Culture - Preliminary Sputum - Endotracheal Light growth normal respiratory [place] at 24 hours 09/01/18 00:05 Aerobic Blood Culture - Preliminary Blood - Peripheral No growth in 1 day Anaerobic Blood Culture - Preliminary No growth in 1 day 08/31/18 22:20 Aerobic Blood Culture - Preliminary Blood - Peripheral Viridans streptococcus grp Anaerobic Blood Culture - Preliminary No growth in 2 days - Impressions ITS Impressions Abdomen/Pelvis CT 09/01/18 00:00 CONCLUSION: 1. Trace ascites, nonspecific. Also mild body wall edema. No organized or drainable fluid. 2. Diverticulosis of the sigmoid colon. No diverticulitis or other acute inflammatory changes. 3. Atherosclerosis of the aorta. Chest CT 09/01/18 00:00 CONCLUSION: 1. Bilateral pneumonia, especially right upper lobe. 2. Small bilateral pleural effusions; dependent/compressive atelectasis of both lower lobes. 3. Panchamber enlargement of the heart. Head CT 09/01/18 00:00 CONCLUSION: 1. No acute intracranial abnormality demonstrated. 2. Atrophy and chronic periventricular white matter changes. . Chest X-Ray 09/02/18 07:20 CONCLUSION: Increasing parenchymal changes on the right. Discharge Plan - Discharge Condition Condition: Stable - Physicians Team Primary Care Provider: Davy Walters Attending Provider: Tiago Le Other Providers: Malgorzata Hinkle MD ; Alex Velazquez MD ; Beka Serrano MD ; Pete Álvarez MD ; Luis Alberto Ruff MD
--- NOTE | 2018-09-02 14:59 | ECG ---
Date Performed: 09/01/2018 Time Performed: 15:30:33 PTAGE: 83 years EKG: Sinus rhythm MARKED LEFT AXIS DEVIATION POSSIBLE ANTERIOR MYOCARDIAL INFARCTION , PROBABLY OLD ABNORMAL ECG PREVIOUS TRACING : 08/31/2018 23.28 DOCTOR: Jerson Melendez Interpretating Date/Time 09/02/2018 14:57:46
--- NOTE | 2018-09-02 15:20 | P.PNCA ---
Subjective Interval history: Patient remains intubated and sedated. Patient does not appear to be in any acute distress at this time. Patient does attempt to follow commands. at bedside. Medications and Allergies Allergies Allergy/AdvReac Type Severity Reaction Status Date / Time prednisone Allergy Severe Weight loss Verified 08/28/18 14:33 penicillin G Allergy Intermediate Hives Verified 08/28/18 14:33 Sulfa (Sulfonamide Allergy Intermediate Hives Verified 08/28/18 14:33 Antibiotics) Home Medications Medication Instructions Recorded Confirmed Type fenofibrate 160 mg PO DAILY 07/22/18 08/28/18 History latanoprost 1 drp OPHTHALMIC (EYE) QPM 07/22/18 08/28/18 History levothyroxine [Synthroid] 75 mcg PO DAILY 07/22/18 08/28/18 History pitavastatin calcium [Livalo] 2 mg PO 3XW 07/22/18 08/28/18 History metoprolol tartrate 25 mg PO BID 08/28/18 08/28/18 History rivaroxaban [Xarelto] 15 mg PO QPM 08/28/18 08/28/18 History torsemide 20 mg PO EVERY OTHER DAY 08/28/18 08/28/18 History amiodarone 200 mg PO 08/29/18 History Active Medications: Active Medications Albuterol (Duoneb Neb (Prn)) 1 ampul NEB Q2HR NEB PRN PRN Reason: SHORTNESS OF BREATH Albuterol (Duoneb Neb (Jaspal)) 1 ampul NEB Q4HR NEB [facility] Last Admin: 09/02/18 12:19 Dose: 1 ampul Amiodarone HCl (Cordarone) 200 mg PO BID [facility] Last Admin: 09/01/18 00:32 Dose: Not Given Bumetanide (Bumex Inj) 1 mg IV.PUSH Q12H [facility] Last Admin: 09/02/18 08:56 Dose: 1 mg Chlorhexidine Gluconate (Peridex 0.12% Oral Kit) 15 ml OROPHARYNG BID@0800, 2000 [facility] Last Admin: 09/02/18 08:58 Dose: 15 ml Chlorhexidine Gluconate (Chlorhexidine 2% Cloth) 3 pack TOPICAL DAILY@0400 [facility] Stop: 09/06/18 03:59 Last Admin: 09/02/18 04:00 Dose: 3 pack Chlorhexidine Gluconate (Chlorhexidine 2% Cloth) 3 pack TOPICAL DAILY@0400 PRN PRN Reason: Extra cloth needed Stop: 09/06/18 03:59 Dextrose (D50w Vial) 50 ml IV.PUSH UNSCH PRN PRN Reason: PER HYPOGLYCEMIA PROTOCOL Famotidine (Pepcid Pf Inj) 10 mg IV.PUSH Q12HR JASPAL Last Admin: 09/02/18 08:57 Dose: 10 mg Glucagon (Glucagon Inj) 1 mg OTHER PRN PRN PRN Reason: for Hypoglycemia Protocol Hydrocortisone Sodium Succinate (Solucortef Inj) 100 mg IV.PUSH Q8HR JASPAL Last Admin: 09/02/18 14:15 Dose: 100 mg Diltiazem HCl 125 mg/ Sodium (Chloride) 125 mls @ 5 mls/hr IV.CONT TITRATE PRN ; Protocol PRN Reason: Per Protocol Last Titration: 08/29/18 13:59 Dose: Infused Albumin Human (Flexbumin 25% Inj) 50 mls @ 50 mls/hr IV.SIG Q12H JASPAL Last Infusion: 09/02/18 09:57 Dose: Infused Aztreonam 2 gm/ Sodium (Chloride) 100 mls @ 200 mls/hr IV.SIG Q8H JASPAL Last Admin: 09/02/18 14:14 Dose: 200 mls/hr Amiodarone HCl 450 mg/ (Dextrose) 250 mls @ 33.33 mls/hr IV.CONT TITRATE PRN; Protocol PRN Reason: Per Protocol Last Admin: 09/02/18 12:50 Dose: 1 mg/min, 33.33 mls/hr Dopamine HCl 800 mg/ Sodium (Chloride) 520 mls @ 8.07 mls/hr IV.CONT TITRATE PRN; Protocol PRN Reason: See Protocol Last Titration: 08/31/18 23:00 Dose: Infused Phenylephrine HCl 80 mg/ (Sodium Chloride) 500 mls @ 15 mls/hr IV.CONT TITRATE PRN; Protocol PRN Reason: See prorocol Last Titration: 09/01/18 14:35 Dose: Infused Norepinephrine Bitartrate 4 mg (/ Sodium Chloride) 250 mls @ 7.5 mls/hr IV.SIG TITRATE PRN; Protocol PRN Reason: Per Protocol Last Titration: 09/02/18 03:13 Dose: 0 mcg/min, 0 mls/hr Dobutamine HCl 500 mg/ (Dextrose) 250 mls @ 5.17 mls/hr IV.CONT .Q24H [facility] Last Admin: 09/02/18 00:24 Dose: 2.5 mcg/kg/min, 5.17 mls/hr Sodium Chloride (Ns Inj) 1,000 mls @ 0 mls/hr IV.SIG BOLUS JASPAL Azithromycin 500 mg/ Sodium (Chloride) 250 mls @ 250 mls/hr IV.SIG Q24H [facility] Last Infusion: 09/02/18 01:55 Dose: Infused Fentanyl (Fentanyl 10 Mcg/Ml Premix Drip) 2,500 mcg in 250 mls @ 5 mls/hr IV.SIG TITRATE PRN; Protocol PRN Reason: Per Protocol Last Admin: 09/02/18 04:24 Dose: 100 mcg/hr, 10 mls/hr Vasopressin 40 unit/ Dextrose 100 mls @ 6 mls/hr IV.CONT CONT [facility]; Protocol Last Infusion: 09/02/18 08:15 Dose: 0 units/min, 0 mls/hr Insulin Human Regular (Novolin R Correctional Sugar Inj) 0 units SQ Q6HR [facility]; Protocol Last Admin: 09/02/18 11:22 Dose: Not Given Latanoprost (Xalatan 0.005% Opth Drops) 1 drop EACH EYE QPM [facility] Last Admin: 09/01/18 19:59 Dose: 1 drop Levothyroxine Sodium (Synthroid) 75 mcg PO DAILY@0600 [facility] Last Admin: 09/02/18 06:00 Dose: Not Given Metoprolol Tartrate (Lopressor) 25 mg PO BID [facility] Last Admin: 09/01/18 00:33 Dose: Not Given Miscellaneous Medication () 1 each OROPHARYNG 0000,0400,1200,1600 [facility] Last Admin: 09/02/18 12:51 Dose: 1 each Morphine Sulfate (Morphine Inj) 4 mg IV.PUSH Q2H PRN PRN Reason: Pain6-10 Last Admin: 09/01/18 08:59 Dose: 4 mg Pharmacy Profile Note (Vancomycin Consult Pharmacy) 1 each OTHER UNSCH PRN PRN Reason: Pharmacy to dose Rivaroxaban (Xarelto) 15 mg PO QPM [facility] Last Admin: 08/31/18 17:44 Dose: 15 mg Sodium Chloride (Ns Flush) 2 ml IV.FLUSH BID [facility] Last Admin: 09/02/18 08:57 Dose: 2 ml Sodium Chloride (Ns Flush) 2 ml IV.FLUSH PRN PRN PRN Reason: FLUSH AFTER USING IV ACCESS Terbutaline Sulfate (Brethine Inj) 1 mg SQ UNSCH PRN PRN Reason: For Extravasation Physical Exam Vital signs: Vital Signs 09/01/18 16:00 09/01/18 16:35 09/01/18 19:00 Temperature 98.2 F Pulse Rate 75 74 81 Respiratory Rate 25 H 22 Blood Pressure 106/60 Pulse Oximetry 99 99 09/01/18 20:00 09/01/18 20:10 09/01/18 20:15 Temperature 98.2 F Pulse Rate 73 72 Respiratory Rate 18 18 18 Blood Pressure 104/57 L Pulse Oximetry 98 97 09/01/18 21:00 09/01/18 22:00 09/01/18 23:00 Temperature Pulse Rate 81 82 71 Respiratory Rate Blood Pressure Pulse Oximetry 09/02/18 00:00 09/02/18 00:56 09/02/18 00:59 Temperature 98.2 F Pulse Rate 74 72 Respiratory Rate 18 18 18 Blood Pressure 101/59 L Pulse Oximetry 97 97 09/02/18 01:00 09/02/18 02:00 09/02/18 03:00 Temperature Pulse Rate 73 72 71 Respiratory Rate Blood Pressure Pulse Oximetry 09/02/18 04:00 09/02/18 04:55 09/02/18 05:00 Temperature 97.6 F Pulse Rate 68 70 69 Respiratory Rate 18 24 Blood Pressure 104/61 Pulse Oximetry 95 09/02/18 06:00 09/02/18 07:00 09/02/18 08:00 Temperature 98.1 F Pulse Rate 69 68 68 Respiratory Rate 14 18 Blood Pressure 98/56 L Pulse Oximetry 98 09/02/18 09:00 09/02/18 10:00 09/02/18 11:00 Temperature Pulse Rate 68 71 68 Respiratory Rate 17 Blood Pressure Pulse Oximetry 09/02/18 12:00 09/02/18 13:00 09/02/18 14:00 Temperature 97.6 F Pulse Rate 68 70 71 Respiratory Rate 14 Blood Pressure 101/60 Pulse Oximetry 99 Intake & Output 09/01/18 09/02/18 09/02/18 18:59 06:59 18:59 Intake Total 3290 / 3290 2250 / 2250 996 / 996 Output Total 100 / 100 800 / 800 Balance 3190 / 3190 1450 / 1450 996 / 996 Weight 80.6 kg Intake: IV 3290 / 3290 2250 / 2250 996 / 996 Cordarone Inj 450 MG In D5W Inj 250 / 250 250 / 250 250 / 250 241 ML @ 1 MG/MIN 33.33 mls/hr IV.CONT TITRATE PRN Rx#: [id number] Dobutrex Inj 500 MG In D5W Inj 200 / 200 210 ML @ 2.5 MCG/KG/MIN 5.17 mls/hr IV.CONT .Q24H [facility] Rx#: [id number] Neosynephrine Inj 80 MG In NS 800 / 800 Inj 492 ML @ 40 MCG/MIN 15 mls/ hr IV.CONT TITRATE PRN Rx#: [id number] Sodium Bicarbonate 8.4% Inj 150 1000 / 1000 1000 / 1000 235 / 235 MEQ In Sterile Water for Inj 850 ML @ 150 mls/hr IV.CONT . Q6H40M JASP[facility] Rx#:[id number] Flexbumin 25% Inj 50 ML @ 50 0 / 0 100 / 100 50 / 50 mls/hr IV.SIG Q12H [facility] Rx#: [id number] Azithromycin Inj 500 MG In NS 250 / 250 Inj 250 ML @ 250 mls/hr IV.SIG Q24H [facility] Rx#:[id number] Azactam Inj 2 GM In NS Inj 100 100 / 100 100 / 100 100 / 100 ML @ 200 mls/hr IV.SIG Q8H [facility] Rx#:[id number] Calcium Chloride Inj 1 GM In 110 / 110 110 / 110 D5W Inj 100 ML @ 110 mls/hr IV. SIG ONCE ONE Rx#:[id number] Magnesium Sulfate Inj 2 GM In 100 / 100 NS Inj 96 ML @ 50 mls/hr IV.SIG ONCE ONE Rx#:[id number] Levophed Inj 4 MG In NS Inj 246 730 / 730 ML @ 2 MCG/MIN 7.5 mls/hr IV. SIG TITRATE PRN Rx#:[id number] Vitamin K Inj 10 MG In D5W Inj 51 / 51 50 ML @ 102 mls/hr IV.SIG STAT STA Rx#:[id number] Vancomycin Inj 500 MG In NS Inj 100 / 100 100 ML @ 200 mls/hr IV.SIG ONCE ONE Rx#:[id number] fentaNYL 10 mcg/mL Premix Drip 250 / 250 2,500 mcg In 250 ml @ 50 MCG/HR 5 mls/hr IV.SIG TITRATE PRN Rx #:[id number] Flagyl 500 MG Inj 100 ML @ 100 200 / 200 100 / 100 100 / 100 mls/hr IV.SIG Q8H [facility] Rx#: [id number] Oral 0 / 0 Output: Urine 100 / 100 Urine Amount (Catheter) 800 / 800 Indwelling Urethral Catheter 800 / 800 Other: Date of Last Bowel Movement 08/29/18 # Bowel Movements 0 - Constitutional no acute distress - Routine HEENT Exam Head: Present: normocephalic Eye: Present: PERRL ENT: Present: mucous membranes moist - Routine Neck Exam Present: supple - Routine Respiratory Exam Present: rhonchi Comments: rhonchi throughout lobes bilateral. - Routine Cardiovascular Exam Present: S1, S2. Absent: gallop, rubs - Routine Abdominal Exam Present: normoactive bowel sounds - Routine Extremities Exam Present: pulses intact, normal capillary refill. Absent: cyanosis, clubbing, edema Comments: Patient does move all extremities. - Routine Skin Exam Present: intact - Routine Neurological Exam Sedated - Routine Psychiatric Exam Present: unable to assess - Urinary Catheter Management Indwelling Urethral Catheter Cath placed during this visit: yes Reason for continuing: Hourly intake/output Insertion date: 08/31/18 Insertion time: 22:00 Results 09/02/18 07:30 09/02/18 07:30 Cardiac Enzymes 08/31/18 08/31/18 09/01/18 Range/Units 21:45 21:45 04:15 AST 31572 H 50179 H (15-37) U/L Troponin I 0.12 H (0.02-0.05) ng/mL 09/01/18 09/02/18 Range/Units 17:20 07:30 AST 43988 H 8258 H (15-37) U/L Troponin I 1.62 H* (0.02-0.05) ng/mL Coagulation 09/01/18 09/01/18 09/01/18 Range/Units 01:00 04:15 09:28 PT 73.6 H D 89.8 H D (9.8-11.6) sec APTT 44.1 H (24.3-30.1) sec 09/01/18 09/01/18 09/02/18 Range/Units 09:28 17:20 07:30 PT 55.9 H D 86.7 H D 89.3 H (9.8-11.6) sec APTT (24.3-30.1) sec CBC 08/31/18 09/01/18 09/02/18 Range/Units 21:45 04:15 07:30 WBC 16.4 H 18.0 H 9.3 (4.0-11.0) th/mm3 RBC 4.00 L 3.90 L 3.45 L (4.50-5.90) mil/mm3 Hgb 11.9 L D 11.8 L 10.6 L (13.0-17.0) gm/dL Hct 38.0 L 37.9 L 31.9 L (39.0-51.0) % Plt Count 263 248 172 D (150-450) th/mm3 Neut # (Auto) 14.2 H 15.6 H 8.4 H (1.8-7.7) th/mm3 Lymph # (Auto) 0.6 L 0.9 L 0.6 L (1.0-4.8) th/mm3 Bradley # (Auto) 1.5 H 1.3 H 0.3 (0.0-0.9) th/mm3 Eos # (Auto) 0.0 0.0 0.0 (0.0-0.4) th/mm3 Baso # (Auto) 0.0 0.0 0.0 (0.0-0.2) th/mm3 Comprehensive Metabolic Panel 08/31/18 09/01/18 09/01/18 Range/Units 21:45 04:15 17:20 Sodium 144 139 137 (136-145) meq/L Potassium 5.5 H 4.8 4.1 (3.5-5.1) meq/L Chloride 103 102 98 (98-107) meq/L Carbon Dioxide 15.1 L 13.5 L 21.1 (21.0-32.0) meq/L BUN 50 H 49 H 51 H (7-18) mg/dL Creatinine 3.26 H 3.14 H 3.28 H (0.60-1.30) mg/dL Calcium 7.7 L D 7.2 L* 6.8 L* (8.5-10.1) mg/dL AST 60386 H 90380 H 87517 H (15-37) U/L ALT 4298 H 5706 H 5779 H (12-78) U/L Alkaline Phosphatase 57 62 73 (45-117) U/L Total Protein 5.9 L D 5.6 L 5.2 L (6.4-8.2) g/dL Albumin 2.7 L D 2.7 L 2.7 L (3.4-5.0) g/dL 09/02/18 Range/Units 07:30 Sodium 137 (136-145) meq/L Potassium 3.9 (3.5-5.1) meq/L Chloride 96 L (98-107) meq/L Carbon Dioxide 28.5 (21.0-32.0) meq/L BUN 65 H (7-18) mg/dL Creatinine 3.52 H (0.60-1.30) mg/dL Calcium 7.0 L* (8.5-10.1) mg/dL AST 8258 H (15-37) U/L ALT 5179 H (12-78) U/L Alkaline Phosphatase 78 (45-117) U/L Total Protein 5.2 L (6.4-8.2) g/dL Albumin 2.7 L (3.4-5.0) g/dL Intake and Output 09/02/18 09/02/18 09/02/18 06:59 14:59 22:59 Intake Total 2150 / 2150 996 / 996 Output Total 800 / 800 Balance 1350 / 1350 996 / 996 Intake: IV 2150 / 2150 996 / 996 Cordarone Inj 450 MG In D5W Inj 250 / 250 250 / 250 241 ML @ 1 MG/MIN 33.33 mls/hr IV.CONT TITRATE PRN Rx#: [id number] Dobutrex Inj 500 MG In D5W Inj 200 / 200 210 ML @ 2.5 MCG/KG/MIN 5.17 mls/hr IV.CONT .Q24H [facility] Rx#: [id number] Sodium Bicarbonate 8.4% Inj 150 1000 / 1000 235 / 235 MEQ In Sterile Water for Inj 850 ML @ 150 mls/hr IV.CONT . Q6H40M [facility] Rx#:[id number] Flexbumin 25% Inj 50 ML @ 50 50 / 50 mls/hr IV.SIG Q12H [facility] Rx#: [id number] Azithromycin Inj 500 MG In NS 250 / 250 Inj 250 ML @ 250 mls/hr IV.SIG Q24H [facility] Rx#:[id number] Azactam Inj 2 GM In NS Inj 100 100 / 100 100 / 100 ML @ 200 mls/hr IV.SIG Q8H [facility] Rx#:[id number] Calcium Chloride Inj 1 GM In 110 / 110 D5W Inj 100 ML @ 110 mls/hr IV. SIG ONCE ONE Rx#:[id number] Magnesium Sulfate Inj 2 GM In 100 / 100 NS Inj 96 ML @ 50 mls/hr IV.SIG ONCE ONE Rx#:[id number] Vitamin K Inj 10 MG In D5W Inj 51 / 51 50 ML @ 102 mls/hr IV.SIG STAT STA Rx#:[id number] fentaNYL 10 mcg/mL Premix Drip 250 / 250 2,500 mcg In 250 ml @ 50 MCG/HR 5 mls/hr IV.SIG TITRATE PRN Rx #:[id number] Flagyl 500 MG Inj 100 ML @ 100 100 / 100 100 / 100 mls/hr IV.SIG Q8H [facility] Rx#: [id number] Output: Urine Amount (Catheter) 800 / 800 Indwelling Urethral Catheter 800 / 800 Other: Date of Last Bowel Movement 08/29/18 Weight 80.6 kg - Imaging and Cardiology Imaging: Impressions Chest X-Ray 08/31/18 20:47 CONCLUSION: 1. ETT in good position. Right subclavian central line in good position without pneumothorax. 2. Developing right lower lung zone ill-defined airspace disease. Abdomen/Pelvis CT 09/01/18 00:00 CONCLUSION: 1. Trace ascites, nonspecific. Also mild body wall edema. No organized or drainable fluid. 2. Diverticulosis of the sigmoid colon. No diverticulitis or other acute inflammatory changes. 3. Atherosclerosis of the aorta. Chest CT 09/01/18 00:00 CONCLUSION: 1. Bilateral pneumonia, especially right upper lobe. 2. Small bilateral pleural effusions; dependent/compressive atelectasis of both lower lobes. 3. Panchamber enlargement of the heart. Head CT 09/01/18 00:00 CONCLUSION: 1. No acute intracranial abnormality demonstrated. 2. Atrophy and chronic periventricular white matter changes. . Chest X-Ray 09/01/18 06:00 CONCLUSION: No significant change. Chest X-Ray 09/02/18 07:20 CONCLUSION: Increasing parenchymal changes on the right. Assessment and Plan - Assessment (1) Respiratory failure Code(s): J96.90 - Respiratory failure, unspecified, unspecified whether with hypoxia or hypercapnia Status: Acute (2) Cardiomyopathy Code(s): I42.9 - Cardiomyopathy, unspecified Status: Chronic (3) Atrial fibrillation Code(s): I48.91 - Unspecified atrial fibrillation Status: Chronic (4) V-tach Code(s): I47.2 - Ventricular tachycardia Status: Chronic (5) CAD (coronary artery disease) of artery bypass graft Code(s): I25.810 - Atherosclerosis of coronary artery bypass graft(s) without angina pectoris Status: Chronic (6) Nutrition, metabolism, and development symptoms Code(s): R63.8 - Other symptoms and signs concerning food and fluid intake Status: Acute (7) Hypothyroidism Code(s): E03.9 - Hypothyroidism, unspecified Status: Chronic (8) Atrial fibrillation with rapid ventricular response Code(s): I48.91 - Unspecified atrial fibrillation Status: Acute - Plan Patient was cardioverted yesterday and remains in SR on monitor. Patient remains intubated and sedated at this time. Palliative care evaluation in progress. Patient on Amiodarone gtt for rhythm maintenance post cardioversion. Patient off vasopressin, on Dobutamine and sodium bicarb gtts. Discussed with patients current treatment plan, she verbalized understanding. We will continue to follow patient during hospitalization. Patient seen and evaluated by Dr. Juárez who participated in care, management and decision making. - Attending Attestation Patient seen and examined. I reviewed and agree with the evaluation and plan as presented. He stays in SR after cardioversion, continue amio. Continue ICU care , continue weaning pressors as tolerated. Wean vent as tolerated. D/w pt's .
--- NOTE | 2018-09-02 15:33 | P.PNCC ---
Subjective Subjective Remarks/Hospital Course: 08/31: Patient is 83-year-old male with a history of A. fib on Xarelto, cardiomyopathy with ejection fraction 17%, moderate MR, moderate AI, hypertension, hyperlipidemia, ventricular tachycardia history with, ICD, COPD who was admitted to the [facility] service on 08/28/2018 for worsening shortness of breath. He was admitted with a diagnosis of COPD, atrial fibrillation with RVR and cardiology was consulted. I am unable to locate echo report but according to [facility] admit note Echo 10/2017, EF=17%, LVH, biatrial enlargement,, Mod MR, Mod AI, Mod TR, aortic cusp thickening. Patient has chronic A. fib for which he takes Xarelto, metoprolol, and amiodarone. This was continued and patient was also placed on Cardizem infusion for rate control. Plan was for EMILEE guided cardioversion tomorrow Patient was noted to be increasingly short of breath over the day. He received some Ativan around 10 AM today for presumed anxiety. According to bedside RN patient had labored breathing since the beginning of her shift at around 7 and even prior. Patient became increasingly lethargic with worsening hypoxia shortness of breath. Stat ABG showed 7.07/29/58 with oxygen saturation of 78 and base excess -20.5. A Halicat was called at about 8 pm and patient was moved to the [facility]. I immediately evaluated the patient. Patient was barely responsive tachypneic. Blood pressure was not recordable but pulse was palpable. I ordered stat transfusion of 1 L normal saline bolus, 2 Amps of bicarb to at least partially corrective acidosis prior to intubation and also started Levophed infusion peripherally. After systolic blood pressure was in 60s I proceeded with endotracheal intubation due to hypoxia and lack of airway protection. Patient was intubated and placed on mechanical ventilation. Patient remained in atrial fibrillation RVR, the shock appears to be severe cardiogenic shock worsened by severe acidosis. Levophed was rapidly increased to 40 mcg/min, additional pressors added with Tien-Synephrine and dopamine. I emergently placed a right subclavian central line and also right femoral artery line. Once arterial line is placed and flow Trac monitoring is initiated. I have given digoxin 0.5 mg IV x1 for rate control, start amiodarone bolus and infusion for rate control. Start dobutamine infusion as the patient has an EF of 17%. Duque cultures will be sent a Escamilla catheter will be inserted as the patient is almost anuric. Broad-spectrum antibiotics with Azactam Flagyl and vancomycin. Chest x-ray shows persistent left lower lobe and new right lower lobe infiltrates. This appears to be a combination of severe cardiogenic and septic shock and prognosis is guarded at this time 09/01: Remains orally intubated on mechanical ventilation. This morning at the time of my evaluation patient was easily arousable following commands. He was on phenylephrine/Levophed/dobutamine for pressor support/inotropic support as well as amiodarone gtt. Over the course of the day his phenylephrine was titrated off and Levophed was decreased to 5 mics per minute after starting vasopressin gtt 0.04 units/min. After discussion with Dr. felix proceeded with electrical cardioversion to convert him out of his A. fib. Patient was successfully cardioverted to sinus rhythm. He has been essentially anuric. 09/02: Sedated, arousable, orally intubated on mechanical ventilation. On dobutamine 2.5 mics per KG per minute and amiodarone 1 mg/min. Bicarb drip discontinued. Lactic acid improving. INR elevated this morning for which vitamin K 10 mg IV given. No evidence of active bleeding. Objective Vital Signs / I&O: Vital Signs 09/01/18 16:00 09/01/18 16:35 09/01/18 19:00 Temperature 98.2 F Pulse Rate 75 74 81 Respiratory Rate 25 H 22 Blood Pressure 106/60 Pulse Oximetry 99 99 09/01/18 20:00 09/01/18 20:10 09/01/18 20:15 Temperature 98.2 F Pulse Rate 73 72 Respiratory Rate 18 18 18 Blood Pressure 104/57 L Pulse Oximetry 98 97 09/01/18 21:00 09/01/18 22:00 09/01/18 23:00 Temperature Pulse Rate 81 82 71 Respiratory Rate Blood Pressure Pulse Oximetry 09/02/18 00:00 09/02/18 00:56 09/02/18 00:59 Temperature 98.2 F Pulse Rate 74 72 Respiratory Rate 18 18 18 Blood Pressure 101/59 L Pulse Oximetry 97 97 09/02/18 01:00 09/02/18 02:00 09/02/18 03:00 Temperature Pulse Rate 73 72 71 Respiratory Rate Blood Pressure Pulse Oximetry 09/02/18 04:00 09/02/18 04:55 09/02/18 05:00 Temperature 97.6 F Pulse Rate 68 70 69 Respiratory Rate 18 24 Blood Pressure 104/61 Pulse Oximetry 95 09/02/18 06:00 09/02/18 07:00 09/02/18 08:00 Temperature 98.1 F Pulse Rate 69 68 68 Respiratory Rate 14 18 Blood Pressure 98/56 L Pulse Oximetry 98 09/02/18 09:00 09/02/18 10:00 09/02/18 11:00 Temperature Pulse Rate 68 71 68 Respiratory Rate 17 Blood Pressure Pulse Oximetry 09/02/18 12:00 09/02/18 13:00 09/02/18 14:00 Temperature 97.6 F Pulse Rate 68 70 71 Respiratory Rate 14 Blood Pressure 101/60 Pulse Oximetry 99 09/02/18 15:00 Temperature Pulse Rate 73 Respiratory Rate Blood Pressure Pulse Oximetry Intake & Output 09/01/18 09/02/18 09/02/18 18:59 06:59 18:59 Intake Total 3290 / 3290 2250 / 2250 1711 / 1711 Output Total 100 / 100 800 / 800 Balance 3190 / 3190 1450 / 1450 1711 / 1711 Weight 80.6 kg Intake: IV 3290 / 3290 2250 / 2250 1711 / 1711 Cordarone Inj 450 MG In D5W Inj 250 / 250 250 / 250 250 / 250 241 ML @ 1 MG/MIN 33.33 mls/hr IV.CONT TITRATE PRN Rx#: [id number] Dobutrex Inj 500 MG In D5W Inj 200 / 200 210 ML @ 2.5 MCG/KG/MIN 5.17 mls/hr IV.CONT .Q24H ANNITA Rx#: [id number] Neosynephrine Inj 80 MG In NS 800 / 800 Inj 492 ML @ 40 MCG/MIN 15 mls/ hr IV.CONT TITRATE PRN Rx#: [id number] Sodium Bicarbonate 8.4% Inj 150 1000 / 1000 1000 / 1000 235 / 235 MEQ In Sterile Water for Inj 850 ML @ 150 mls/hr IV.CONT . Q6H40M ANNITA Rx#:[id number] Flexbumin 25% Inj 50 ML @ 50 0 / 0 100 / 100 50 / 50 mls/hr IV.SIG Q12H [facility] Rx#: [id number] Azithromycin Inj 500 MG In NS 250 / 250 Inj 250 ML @ 250 mls/hr IV.SIG Q24H [facility] Rx#:[id number] Azactam Inj 2 GM In NS Inj 100 100 / 100 100 / 100 200 / 200 ML @ 200 mls/hr IV.SIG Q8H [facility] Rx#:[id number] Calcium Chloride Inj 1 GM In 110 / 110 110 / 110 D5W Inj 100 ML @ 110 mls/hr IV. SIG ONCE ONE Rx#:[id number] Magnesium Sulfate Inj 2 GM In 100 / 100 NS Inj 96 ML @ 50 mls/hr IV.SIG ONCE ONE Rx#:[id number] Levophed Inj 4 MG In NS Inj 246 730 / 730 ML @ 2 MCG/MIN 7.5 mls/hr IV. SIG TITRATE PRN Rx#:[id number] Vitamin K Inj 10 MG In D5W Inj 51 / 51 50 ML @ 102 mls/hr IV.SIG STAT STA Rx#:[id number] Vancomycin Inj 1,500 MG In NS 515 / 515 Inj 500 ML @ 250 mls/hr IV.SIG ONCE ONE Rx#:[id number] Vancomycin Inj 500 MG In NS Inj 100 / 100 100 ML @ 200 mls/hr IV.SIG ONCE ONE Rx#:[id number] fentaNYL 10 mcg/mL Premix Drip 250 / 250 2,500 mcg In 250 ml @ 50 MCG/HR 5 mls/hr IV.SIG TITRATE PRN Rx #:[id number] Flagyl 500 MG Inj 100 ML @ 100 200 / 200 100 / 100 200 / 200 mls/hr IV.SIG Q8H [facility] Rx#: [id number] Oral 0 / 0 Output: Urine 100 / 100 Urine Amount (Catheter) 800 / 800 Indwelling Urethral Catheter 800 / 800 Other: Date of Last Bowel Movement 08/29/18 # Bowel Movements 0 Result Diagrams: 09/02/18 07:30 09/02/18 07:30 Imaging: Impressions Chest X-Ray 08/31/18 20:47 CONCLUSION: 1. ETT in good position. Right subclavian central line in good position without pneumothorax. 2. Developing right lower lung zone ill-defined airspace disease. Abdomen/Pelvis CT 09/01/18 00:00 CONCLUSION: 1. Trace ascites, nonspecific. Also mild body wall edema. No organized or drainable fluid. 2. Diverticulosis of the sigmoid colon. No diverticulitis or other acute inflammatory changes. 3. Atherosclerosis of the aorta. Chest CT 09/01/18 00:00 CONCLUSION: 1. Bilateral pneumonia, especially right upper lobe. 2. Small bilateral pleural effusions; dependent/compressive atelectasis of both lower lobes. 3. Panchamber enlargement of the heart. Head CT 09/01/18 00:00 CONCLUSION: 1. No acute intracranial abnormality demonstrated. 2. Atrophy and chronic periventricular white matter changes. . Chest X-Ray 09/01/18 06:00 CONCLUSION: No significant change. Chest X-Ray 09/02/18 07:20 CONCLUSION: Increasing parenchymal changes on the right. Objective Remarks: HEENT/ Neuro: Sedated, orally intubated, Pallor present, no icterus, tongue/ mucosa moist Neck: No JVD Chest/Pulm: on mech vent, good air entry bilaterally, bibasilar crackles, no wheezing CVS: S1-S2 regular(after cardioversion), no murmur GI/abdomen: soft, distended, nontender, bowel sounds sluggish Extremities: warm bilaterally, trace edema Assessment and Plan - Assessment and Plan Plan: NEURO: Toxic metabolic encephalopathy -Patient was unresponsive secondary to severe metabolic encephalopathy -CT head negative for bleed on 08/31 RESP: Acute hypoxemic respiratory failure Bibasilar pneumonia COPD -Emergently intubated for severe respiratory distress hypoxia and inability to protect airway -PRVC/AC, Ventilator bundle -DuoNeb every 4 hours scheduled and as needed -Broad-spectrum antibiotics as below -CT chest suggestive of pneumonia CV: Severe cardiogenic shock Severe metabolic acidosis Severe lactic acidosis 15.7 Atrial fibrillation with rapid ventricular response s/p cardioversion History of CABG Ischemic cardiomyopathy with ejection fraction 17% Moderate MR, moderate AI -Aggressively fluid resuscitated with crystalloids, IV albumin due to severe hypotension -Currently on dobutamine 2.5mcg/kg/min, off phenylephrine/Levophed. Vasopressin titrated off.. - Amiodarone gtt 1mg/min s/p electrical cardioversion with 100 joules X2 on 09/01, converted to sinus rhythm -Hold home medications p.o. amiodarone, p.o. metoprolol -IV digoxin 0.5 mg x1 on 08/31. -Lactic acid came back at 15.7 on 08/31, serial lactic acid decreasing -Stress dose steroids GI: -Start tube feeds and advance to goal as tolerated, IV famotidine -CT abdomen pelvis with some ascites : AK I/CKD -Monitor renal function closely. Escamilla catheter for strict intake output, hourly -Bicarb drip stopped as metabolic acidosis improved -Nephrology consulted and following. Continue Bumex 1 mg IV every 12 hourly. Patient has started making urine. -May need Renal replacement therapy ID: Septic shock Probable pneumonia -Antibiotics with IV Azactam, Flagyl, azithromycin, single dose of vancomycin -Blood urine and sputum cultures Blood cultures from 08/31 1 out of 2 sets growing strep viridans. ID consult requested. Repeat blood cultures on 09/03 -CT chest abdomen pelvis as above HEME: -Monitor CBC, coags -Hold Xarelto due to extremely elevated INR -Vitamin K 10 mg IV x1 on 09/02 ENDO: Hypoglycemia most likely from sepsis Hypothyroidism Mild hyperkalemia Hypocalcemia -Electrolyte replacement per protocol -Hypoglycemia protocol -Replace calcium PROPH: -Bilateral lower extremity SCDs. famotidine. Xarelto to be held due to INR 9 LINES: -Right subclavian central line, right femoral arterial line placed 08/31/2018 Palliative care consulted to assist with deciding goals of therapy. D/W Family Medicine service. D/W patient's at length - explained current clinical status and plan of care- she voiced understanding and was agreeable. Patient remains critical. CC time 40 min excluding time for procedures
[2018-09-02 17:12] LABS: Prothrombin Time 63.6 sec (9.8-11.6)
[2018-09-02 17:18] LABS: INR 6.4 Ratio
--- NOTE | 2018-09-02 17:51 | P.PNPAL ---
Reason for Visit Reason for visit: a. To assist with evaluation and management of symptoms including: pain, dyspnea. b. To assist medical decision maker(s) with: better understanding of current medical conditions; weighing benefits/burdens of medical treatment options; making medical treatment decisions. Subjective Subjective/Interval History: Patient seen and examined in ICU. and nurses at bedside. Patient does not open eyes to voice or exam for me, lightly sedated. Remains on mech vent. On dobutamine and amiodarone drips. Lactic acid improving, bicarb drip discontinued. INR elevated at 6.4 this morning for which vitamin K 10 mg IV given. No evidence of active bleeding. 08/31/18 Blood culture + Viridans streptococcus. Creatinine elevated at 3.52, good urine output. T. Bilirubin elevated at 3.0. Spoke with at bedside, she desires continued aggressive care including dialysis if needed. Advance Directives Living Will: Never completed Health Care Surrogate: Never completed Durable Power of Dental Laboratory Worker: Never completed Health Care Surrogate Name and Number: Health care proxy, : Jovita Ravi : [phone] Significant change in goals:: Goals remain aggressive including FULL CODE and dialysis if needed. Objective Vital Signs: Vital Signs 09/01/18 19:00 09/01/18 20:00 09/01/18 20:10 Temperature 98.2 F Pulse Rate 81 73 Respiratory Rate 18 18 Blood Pressure 104/57 L Pulse Oximetry 98 97 09/01/18 20:15 09/01/18 21:00 09/01/18 22:00 Temperature Pulse Rate 72 81 82 Respiratory Rate 18 Blood Pressure Pulse Oximetry 09/01/18 23:00 09/02/18 00:00 09/02/18 00:56 Temperature 98.2 F Pulse Rate 71 74 Respiratory Rate 18 18 Blood Pressure 101/59 L Pulse Oximetry 97 97 09/02/18 00:59 09/02/18 01:00 09/02/18 02:00 Temperature Pulse Rate 72 73 72 Respiratory Rate 18 Blood Pressure Pulse Oximetry 09/02/18 03:00 09/02/18 04:00 09/02/18 04:55 Temperature 97.6 F Pulse Rate 71 68 70 Respiratory Rate 18 24 Blood Pressure 104/61 Pulse Oximetry 95 09/02/18 05:00 09/02/18 06:00 09/02/18 07:00 Temperature Pulse Rate 69 69 68 Respiratory Rate 14 Blood Pressure Pulse Oximetry 09/02/18 08:00 09/02/18 09:00 09/02/18 10:00 Temperature 98.1 F Pulse Rate 68 68 71 Respiratory Rate 18 Blood Pressure 98/56 L Pulse Oximetry 98 09/02/18 11:00 09/02/18 12:00 09/02/18 13:00 Temperature 97.6 F Pulse Rate 68 68 70 Respiratory Rate 17 14 Blood Pressure 101/60 Pulse Oximetry 99 09/02/18 14:00 09/02/18 15:00 09/02/18 16:00 Temperature Pulse Rate 71 73 72 Respiratory Rate Blood Pressure Pulse Oximetry 09/02/18 17:00 Temperature Pulse Rate 84 Respiratory Rate Blood Pressure Pulse Oximetry Intake & Output 09/01/18 09/02/18 09/02/18 18:59 06:59 18:59 Intake Total 3290 / 3290 2250 / 2250 1711 / 1711 Output Total 100 / 100 800 / 800 1000 / 1000 Balance 3190 / 3190 1450 / 1450 711 / 711 Weight 80.6 kg Intake: IV 3290 / 3290 2250 / 2250 1711 / 1711 Cordarone Inj 450 MG In D5W Inj 250 / 250 250 / 250 250 / 250 241 ML @ 1 MG/MIN 33.33 mls/hr IV.CONT TITRATE PRN Rx#: [id number] Dobutrex Inj 500 MG In D5W Inj 200 / 200 210 ML @ 2.5 MCG/KG/MIN 5.17 mls/hr IV.CONT .Q24H ANNITA Rx#: [id number] Neosynephrine Inj 80 MG In NS 800 / 800 Inj 492 ML @ 40 MCG/MIN 15 mls/ hr IV.CONT TITRATE PRN Rx#: [id number] Sodium Bicarbonate 8.4% Inj 150 1000 / 1000 1000 / 1000 235 / 235 MEQ In Sterile Water for Inj 850 ML @ 150 mls/hr IV.CONT . Q6H40M ANNITA Rx#:[id number] Flexbumin 25% Inj 50 ML @ 50 0 / 0 100 / 100 50 / 50 mls/hr IV.SIG Q12H [facility] Rx#: [id number] Azithromycin Inj 500 MG In NS 250 / 250 Inj 250 ML @ 250 mls/hr IV.SIG Q24H [facility] Rx#:[id number] Azactam Inj 2 GM In NS Inj 100 100 / 100 100 / 100 200 / 200 ML @ 200 mls/hr IV.SIG Q8H [facility] Rx#:[id number] Calcium Chloride Inj 1 GM In 110 / 110 110 / 110 D5W Inj 100 ML @ 110 mls/hr IV. SIG ONCE ONE Rx#:[id number] Magnesium Sulfate Inj 2 GM In 100 / 100 NS Inj 96 ML @ 50 mls/hr IV.SIG ONCE ONE Rx#:[id number] Levophed Inj 4 MG In NS Inj 246 730 / 730 ML @ 2 MCG/MIN 7.5 mls/hr IV. SIG TITRATE PRN Rx#:[id number] Vitamin K Inj 10 MG In D5W Inj 51 / 51 50 ML @ 102 mls/hr IV.SIG STAT STA Rx#:[id number] Vancomycin Inj 1,500 MG In NS 515 / 515 Inj 500 ML @ 250 mls/hr IV.SIG ONCE ONE Rx#:[id number] Vancomycin Inj 500 MG In NS Inj 100 / 100 100 ML @ 200 mls/hr IV.SIG ONCE ONE Rx#:[id number] fentaNYL 10 mcg/mL Premix Drip 250 / 250 2,500 mcg In 250 ml @ 50 MCG/HR 5 mls/hr IV.SIG TITRATE PRN Rx #:[id number] Flagyl 500 MG Inj 100 ML @ 100 200 / 200 100 / 100 200 / 200 mls/hr IV.SIG Q8H [facility] Rx#: [id number] Oral 0 / 0 Output: Urine 100 / 100 Urine Amount (Catheter) 800 / 800 1000 / 1000 Indwelling Urethral Catheter 800 / 800 1000 / 1000 Other: Date of Last Bowel Movement 08/29/18 # Bowel Movements 0 Physical Exam: CONSTITUTIONAL/GENERAL: This is a critically ill pt, in no apparent distress. TUBES/LINES/DRAINS:ETT, OG, right Sub CL, AICD, PIV left, [place]. SKIN: Pale. Ecchymoses on upper extremities. No wounds seen anteriorly. Skin temperature appropriate. Not diaphoretic. EYES: eyes closed. ENT: Hard of hearing. nose without bleeding or purulent drainage. Throat without visible erythema, exudates, masses, or lesions. CARDIOVASCULAR: Regular rate and rhythm after cardioversion. RESPIRATORY/CHEST: Symmetric, unlabored respirations on vent, coarse breath sounds bilaterally R > L. GASTROINTESTINAL: Abdomen soft, distended. Bowel sounds hypoactive. GENITOURINARY: Without palpable bladder distension. Escamilla catheter in place. MUSCULOSKELETAL: Extremities without clubbing, cyanosis, or edema. No mottling or clubbing. NEUROLOGICAL: sedated PSYCHIATRIC: sedated. Diagnostic Tests Laboratory: Laboratory Results - last 72 hr 08/31/18 08/31/18 08/31/18 04:06 04:06 04:06 WBC 11.7 H RBC 4.90 Hgb 14.8 Hct 46.0 MCV 93.9 MCH 30.3 MCHC 32.2 RDW 14.5 Plt Count 332 MPV 9.1 Prelim Diff (Auto) Neut % (Auto) Lymph % (Auto) [place] % (Auto) Eos % (Auto) Baso % (Auto) Neut # (Auto) Lymph # (Auto) [place] # (Auto) Eos # (Auto) Baso # (Auto) WBC Differential Diff Scan Seg Neuts % (Manual) Band Neuts % (Manual) Lymphocytes % (Manual) Monocytes % (Manual) Abs Neuts (Manual) Nucleated RBCs/100 WBC Differential Comment Toxic Granulation Toxic Vacuolation Platelet Estimate Platelet Morphology Acanthocytes (Spur) PT INR APTT Fibrinogen Puncture Site Patient Temperature O2 Saturation ABG pH ABG pCO2 ABG pO2 ABG HCO3 ABG O2 Content ABG Base Excess ABG Methemoglobin Parveen Test Hemoglobin Carboxyhemoglobin O2 Delivery Device Liter Flow Vent Setting Inspired O2 Critical Value Sodium 139 Potassium 5.4 H D Chloride 106 Carbon Dioxide 17.1 L Anion Gap 16 H BUN 36 H Creatinine 1.89 H Estimated GFR 34 L POC Glucose Random Glucose 157 H Lactic Acid Calcium 9.0 Prot Corrected Calcium Magnesium Total Bilirubin 1.6 H AST 444 H ALT 477 H Alkaline Phosphatase 63 Troponin I B-Natriuretic Peptide 3942 H Total Protein 7.7 Albumin 3.4 Urine Color Urine Clarity Urine pH Ur Specific [place] Urine Protein Urine Glucose (UA) Urine Ketones Urine Occult Blood Urine Nitrate Urine Bilirubin Urine Urobilinogen Ur Leukocyte Esterase Urine RBC Urine WBC Ur Squamous Epith Cells Hyaline Casts Urine Mucus Micro UA Comment Ur Microscopic Review Urine Culture Comments Nasal Screen MRSA (PCR) Random Vancomycin Blood Type Blood Bank Comment 08/31/18 08/31/18 08/31/18 17:49 20:31 20:55 WBC RBC Hgb Hct MCV MCH MCHC RDW Plt Count MPV Prelim Diff (Auto) Neut % (Auto) Lymph % (Auto) [place] % (Auto) Eos % (Auto) Baso % (Auto) Neut # (Auto) Lymph # (Auto) [place] # (Auto) Eos # (Auto) Baso # (Auto) WBC Differential Diff Scan Seg Neuts % (Manual) Band Neuts % (Manual) Lymphocytes % (Manual) Monocytes % (Manual) Abs Neuts (Manual) Nucleated RBCs/100 WBC Differential Comment Toxic Granulation Toxic Vacuolation Platelet Estimate Platelet Morphology Acanthocytes (Spur) PT INR APTT Fibrinogen Puncture Site Right femoral Patient Temperature 98.6 O2 Saturation 78 L* ABG pH 7.09 L* ABG pCO2 26 L ABG pO2 58 L* ABG HCO3 7 L* ABG O2 Content 14.5 ABG Base Excess -20.5 L ABG Methemoglobin 1.6 Parveen Test Present Hemoglobin 13.2 Carboxyhemoglobin 0.2 O2 Delivery Device Nasal cannula Liter Flow 3.00 Vent Setting Inspired O2 Critical Value Yes Sodium Potassium Chloride Carbon Dioxide Anion Gap BUN Creatinine Estimated GFR POC Glucose 75 52 L Random Glucose Lactic Acid Calcium Prot Corrected Calcium Magnesium Total Bilirubin AST ALT Alkaline Phosphatase Troponin I B-Natriuretic Peptide Total Protein Albumin Urine Color Urine Clarity Urine pH Ur Specific [place] Urine Protein Urine Glucose (UA) Urine Ketones Urine Occult Blood Urine Nitrate Urine Bilirubin Urine Urobilinogen Ur Leukocyte Esterase Urine RBC Urine WBC Ur Squamous Epith Cells Hyaline Casts Urine Mucus Micro UA Comment Ur Microscopic Review Urine Culture Comments Nasal Screen MRSA (PCR) Random Vancomycin Blood Type Blood Bank Comment 08/31/18 08/31/18 08/31/18 21:06 21:30 21:45 WBC RBC Hgb Hct MCV MCH MCHC RDW Plt Count MPV Prelim Diff (Auto) Neut % (Auto) Lymph % (Auto) [place] % (Auto) Eos % (Auto) Baso % (Auto) Neut # (Auto) Lymph # (Auto) [place] # (Auto) Eos # (Auto) Baso # (Auto) WBC Differential Diff Scan Seg Neuts % (Manual) Band Neuts % (Manual) Lymphocytes % (Manual) Monocytes % (Manual) Abs Neuts (Manual) Nucleated RBCs/100 WBC Differential Comment Toxic Granulation Toxic Vacuolation Platelet Estimate Platelet Morphology Acanthocytes (Spur) PT INR APTT Fibrinogen Puncture Site Art line Patient Temperature 98.6 O2 Saturation 97 ABG pH 7.24 L* ABG pCO2 32 L ABG pO2 448 H ABG HCO3 32 H ABG O2 Content 17.6 ABG Base Excess 13.0 H ABG Methemoglobin 1.7 Parveen Test Present Hemoglobin 12.0 Carboxyhemoglobin 0.2 O2 Delivery Device Ventilator Liter Flow Vent Setting 16/550/+5 Inspired O2 0 Critical Value Yes Sodium Potassium Chloride Carbon Dioxide Anion Gap BUN Creatinine Estimated GFR POC Glucose 194 H Random Glucose Lactic Acid 15.7 H* Calcium Prot Corrected Calcium Magnesium Total Bilirubin AST ALT Alkaline Phosphatase Troponin I B-Natriuretic Peptide Total Protein Albumin Urine Color Urine Clarity Urine pH Ur Specific [place] Urine Protein Urine Glucose (UA) Urine Ketones Urine Occult Blood Urine Nitrate Urine Bilirubin Urine Urobilinogen Ur Leukocyte Esterase Urine RBC Urine WBC Ur Squamous Epith Cells Hyaline Casts Urine Mucus Micro UA Comment Ur Microscopic Review Urine Culture Comments Nasal Screen MRSA (PCR) Random Vancomycin Blood Type Blood Bank Comment 08/31/18 08/31/18 08/31/18 21:45 21:45 21:45 WBC 16.4 H RBC 4.00 L Hgb 11.9 L D Hct 38.0 L MCV 95.1 MCH 29.9 MCHC 31.4 L RDW 14.8 Plt Count 263 MPV 9.2 Prelim Diff (Auto) Slide review pending Neut % (Auto) 87.0 H Lymph % (Auto) 3.8 L [place] % (Auto) 9.0 H Eos % (Auto) 0.1 Baso % (Auto) 0.1 Neut # (Auto) 14.2 H Lymph # (Auto) 0.6 L [place] # (Auto) 1.5 H Eos # (Auto) 0.0 Baso # (Auto) 0.0 WBC Differential . Diff Scan Auto diff confirmed Seg Neuts % (Manual) Band Neuts % (Manual) Lymphocytes % (Manual) Monocytes % (Manual) Abs Neuts (Manual) Nucleated RBCs/100 WBC Differential Comment . Toxic Granulation Toxic Vacuolation Platelet Estimate Normal Platelet Morphology Normal Acanthocytes (Spur) PT INR APTT Fibrinogen Puncture Site Patient Temperature O2 Saturation ABG pH ABG pCO2 ABG pO2 ABG HCO3 ABG O2 Content ABG Base Excess ABG Methemoglobin Parveen Test Hemoglobin Carboxyhemoglobin O2 Delivery Device Liter Flow Vent Setting Inspired O2 Critical Value Sodium 144 Potassium 5.5 H Chloride 103 Carbon Dioxide 15.1 L Anion Gap 26 H BUN 50 H Creatinine 3.26 H Estimated GFR 18 L POC Glucose Random Glucose 217 H Lactic Acid Calcium 7.7 L D Prot Corrected Calcium Magnesium Total Bilirubin 2.6 H AST 85424 H ALT 4298 H Alkaline Phosphatase 57 Troponin I 0.12 H B-Natriuretic Peptide Total Protein 5.9 L D Albumin 2.7 L D Urine Color Urine Clarity Urine pH Ur Specific [place] Urine Protein Urine Glucose (UA) Urine Ketones Urine Occult Blood Urine Nitrate Urine Bilirubin Urine Urobilinogen Ur Leukocyte Esterase Urine RBC Urine WBC Ur Squamous Epith Cells Hyaline Casts Urine Mucus Micro UA Comment Ur Microscopic Review Urine Culture Comments Nasal Screen MRSA (PCR) Random Vancomycin Blood Type Blood Bank Comment 08/31/18 08/31/18 09/01/18 21:45 23:01 00:05 WBC RBC Hgb Hct MCV MCH MCHC RDW Plt Count MPV Prelim Diff (Auto) Neut % (Auto) Lymph % (Auto) [place] % (Auto) Eos % (Auto) Baso % (Auto) Neut # (Auto) Lymph # (Auto) [place] # (Auto) Eos # (Auto) Baso # (Auto) WBC Differential Diff Scan Seg Neuts % (Manual) Band Neuts % (Manual) Lymphocytes % (Manual) Monocytes % (Manual) Abs Neuts (Manual) Nucleated RBCs/100 WBC Differential Comment Toxic Granulation Toxic Vacuolation Platelet Estimate Platelet Morphology Acanthocytes (Spur) PT INR APTT Fibrinogen Puncture Site Patient Temperature O2 Saturation ABG pH ABG pCO2 ABG pO2 ABG HCO3 ABG O2 Content ABG Base Excess ABG Methemoglobin Parveen Test Hemoglobin Carboxyhemoglobin O2 Delivery Device Liter Flow Vent Setting Inspired O2 Critical Value Sodium Potassium Chloride Carbon Dioxide Anion Gap BUN Creatinine Estimated GFR POC Glucose 191 H Random Glucose Lactic Acid Calcium Prot Corrected Calcium Magnesium Total Bilirubin AST ALT Alkaline Phosphatase Troponin I B-Natriuretic Peptide Total Protein Albumin Urine Color Yellow Urine Clarity Hazy H Urine pH 5.0 Ur Specific [place] 1.011 Urine Protein Negative Urine Glucose (UA) Negative Urine Ketones Negative Urine Occult Blood Moderate H Urine Nitrate Negative Urine Bilirubin Negative Urine Urobilinogen 2.0 H Ur Leukocyte Esterase Negative Urine RBC 3 Urine WBC 3 Ur Squamous Epith Cells <1 Hyaline Casts 1 Urine Mucus Few H Micro UA Comment Cath-culture not ind Ur Microscopic Review Not Reportable Urine Culture Comments Cath-cult not ind Nasal Screen MRSA (PCR) Not detected Random Vancomycin Blood Type Blood Bank Comment 09/01/18 09/01/18 09/01/18 00:15 01:00 02:25 WBC RBC Hgb Hct MCV MCH MCHC RDW Plt Count MPV Prelim Diff (Auto) Neut % (Auto) Lymph % (Auto) [place] % (Auto) Eos % (Auto) Baso % (Auto) Neut # (Auto) Lymph # (Auto) [place] # (Auto) Eos # (Auto) Baso # (Auto) WBC Differential Diff Scan Seg Neuts % (Manual) Band Neuts % (Manual) Lymphocytes % (Manual) Monocytes % (Manual) Abs Neuts (Manual) Nucleated RBCs/100 WBC Differential Comment Toxic Granulation Toxic Vacuolation Platelet Estimate Platelet Morphology Acanthocytes (Spur) PT 73.6 H D INR 7.4 H* APTT Fibrinogen Puncture Site Patient Temperature O2 Saturation ABG pH ABG pCO2 ABG pO2 ABG HCO3 ABG O2 Content ABG Base Excess ABG Methemoglobin Parveen Test Hemoglobin Carboxyhemoglobin O2 Delivery Device Liter Flow Vent Setting Inspired O2 Critical Value Sodium Potassium Chloride Carbon Dioxide Anion Gap BUN Creatinine Estimated GFR POC Glucose Random Glucose Lactic Acid 14.7 H* 14.1 H* Calcium Prot Corrected Calcium Magnesium Total Bilirubin AST ALT Alkaline Phosphatase Troponin I B-Natriuretic Peptide Total Protein Albumin Urine Color Urine Clarity Urine pH Ur Specific [place] Urine Protein Urine Glucose (UA) Urine Ketones Urine Occult Blood Urine Nitrate Urine Bilirubin Urine Urobilinogen Ur Leukocyte Esterase Urine RBC Urine WBC Ur Squamous Epith Cells Hyaline Casts Urine Mucus Micro UA Comment Ur Microscopic Review Urine Culture Comments Nasal Screen MRSA (PCR) Random Vancomycin Blood Type Blood Bank Comment 09/01/18 09/01/18 09/01/18 03:00 04:15 04:15 WBC 18.0 H RBC 3.90 L Hgb 11.8 L Hct 37.9 L MCV 97.1 MCH 30.3 MCHC 31.2 L RDW 15.2 Plt Count 248 MPV 9.4 Prelim Diff (Auto) Slide review pending Neut % (Auto) 87.0 H Lymph % (Auto) 5.2 L [place] % (Auto) 7.5 Eos % (Auto) 0.2 Baso % (Auto) 0.1 Neut # (Auto) 15.6 H Lymph # (Auto) 0.9 L [place] # (Auto) 1.3 H Eos # (Auto) 0.0 Baso # (Auto) 0.0 WBC Differential . Diff Scan Auto diff confirmed Seg Neuts % (Manual) Band Neuts % (Manual) Lymphocytes % (Manual) Monocytes % (Manual) Abs Neuts (Manual) Nucleated RBCs/100 WBC Differential Comment . Toxic Granulation 1+ H Toxic Vacuolation Present H Platelet Estimate Normal Platelet Morphology Normal Acanthocytes (Spur) Occ H PT INR APTT Fibrinogen Puncture Site Patient Temperature O2 Saturation ABG pH ABG pCO2 ABG pO2 ABG HCO3 ABG O2 Content ABG Base Excess ABG Methemoglobin Parveen Test Hemoglobin Carboxyhemoglobin O2 Delivery Device Liter Flow Vent Setting Inspired O2 Critical Value Sodium 139 Potassium 4.8 Chloride 102 Carbon Dioxide 13.5 L Anion Gap 24 H BUN 49 H Creatinine 3.14 H Estimated GFR 19 L POC Glucose Random Glucose 338 H D Lactic Acid Calcium 7.2 L* Prot Corrected Calcium 8.0 L Magnesium 2.0 Total Bilirubin 2.8 H AST 89040 H ALT 5706 H Alkaline Phosphatase 62 Troponin I B-Natriuretic Peptide Total Protein 5.6 L Albumin 2.7 L Urine Color Urine Clarity Urine pH Ur Specific [place] Urine Protein Urine Glucose (UA) Urine Ketones Urine Occult Blood Urine Nitrate Urine Bilirubin Urine Urobilinogen Ur Leukocyte Esterase Urine RBC Urine WBC Ur Squamous Epith Cells Hyaline Casts Urine Mucus Micro UA Comment Ur Microscopic Review Urine Culture Comments Nasal Screen MRSA (PCR) Random Vancomycin Blood Type O Positive Blood Bank Comment 09/01/18 09/01/18 09/01/18 04:15 08:08 09:13 WBC RBC Hgb Hct MCV MCH MCHC RDW Plt Count MPV Prelim Diff (Auto) Neut % (Auto) Lymph % (Auto) [place] % (Auto) Eos % (Auto) Baso % (Auto) Neut # (Auto) Lymph # (Auto) [place] # (Auto) Eos # (Auto) Baso # (Auto) WBC Differential Diff Scan Seg Neuts % (Manual) Band Neuts % (Manual) Lymphocytes % (Manual) Monocytes % (Manual) Abs Neuts (Manual) Nucleated RBCs/100 WBC Differential Comment Toxic Granulation Toxic Vacuolation Platelet Estimate Platelet Morphology Acanthocytes (Spur) PT 89.8 H D INR 9.0 H* APTT Fibrinogen Puncture Site Art line Patient Temperature 98.6 O2 Saturation 96 ABG pH 7.26 L* ABG pCO2 27 L ABG pO2 144 H ABG HCO3 12 L* ABG O2 Content 16.0 ABG Base Excess -13.8 L ABG Methemoglobin 1.7 Parveen Test Present Hemoglobin 11.6 L Carboxyhemoglobin 0.4 O2 Delivery Device Ventilator Liter Flow Vent Setting Inspired O2 50 Critical Value Yes Sodium Potassium Chloride Carbon Dioxide Anion Gap BUN Creatinine Estimated GFR POC Glucose 303 H Random Glucose Lactic Acid Calcium Prot Corrected Calcium Magnesium Total Bilirubin AST ALT Alkaline Phosphatase Troponin I B-Natriuretic Peptide Total Protein Albumin Urine Color Urine Clarity Urine pH Ur Specific [place] Urine Protein Urine Glucose (UA) Urine Ketones Urine Occult Blood Urine Nitrate Urine Bilirubin Urine Urobilinogen Ur Leukocyte Esterase Urine RBC Urine WBC Ur Squamous Epith Cells Hyaline Casts Urine Mucus Micro UA Comment Ur Microscopic Review Urine Culture Comments Nasal Screen MRSA (PCR) Random Vancomycin Blood Type Blood Bank Comment 09/01/18 09/01/18 09/01/18 09:28 09:28 09:28 WBC RBC Hgb Hct MCV MCH MCHC RDW Plt Count MPV Prelim Diff (Auto) Neut % (Auto) Lymph % (Auto) [place] % (Auto) Eos % (Auto) Baso % (Auto) Neut # (Auto) Lymph # (Auto) [place] # (Auto) Eos # (Auto) Baso # (Auto) WBC Differential Diff Scan Seg Neuts % (Manual) Band Neuts % (Manual) Lymphocytes % (Manual) Monocytes % (Manual) Abs Neuts (Manual) Nucleated RBCs/100 WBC Differential Comment Toxic Granulation Toxic Vacuolation Platelet Estimate Platelet Morphology Acanthocytes (Spur) PT 55.9 H D INR 5.6 APTT 44.1 H Fibrinogen 282 Puncture Site Patient Temperature O2 Saturation ABG pH ABG pCO2 ABG pO2 ABG HCO3 ABG O2 Content ABG Base Excess ABG Methemoglobin Parveen Test Hemoglobin Carboxyhemoglobin O2 Delivery Device Liter Flow Vent Setting Inspired O2 Critical Value Sodium Potassium Chloride Carbon Dioxide Anion Gap BUN Creatinine Estimated GFR POC Glucose Random Glucose Lactic Acid 13.0 H* Calcium Prot Corrected Calcium Magnesium Total Bilirubin AST ALT Alkaline Phosphatase Troponin I B-Natriuretic Peptide Total Protein Albumin Urine Color Urine Clarity Urine pH Ur Specific [place] Urine Protein Urine Glucose (UA) Urine Ketones Urine Occult Blood Urine Nitrate Urine Bilirubin Urine Urobilinogen Ur Leukocyte Esterase Urine RBC Urine WBC Ur Squamous Epith Cells Hyaline Casts Urine Mucus Micro UA Comment Ur Microscopic Review Urine Culture Comments Nasal Screen MRSA (PCR) Random Vancomycin Blood Type Blood Bank Comment 09/01/18 09/01/18 09/01/18 12:06 13:41 15:51 WBC RBC Hgb Hct MCV MCH MCHC RDW Plt Count MPV Prelim Diff (Auto) Neut % (Auto) Lymph % (Auto) [place] % (Auto) Eos % (Auto) Baso % (Auto) Neut # (Auto) Lymph # (Auto) [place] # (Auto) Eos # (Auto) Baso # (Auto) WBC Differential Diff Scan Seg Neuts % (Manual) Band Neuts % (Manual) Lymphocytes % (Manual) Monocytes % (Manual) Abs Neuts (Manual) Nucleated RBCs/100 WBC Differential Comment Toxic Granulation Toxic Vacuolation Platelet Estimate Platelet Morphology Acanthocytes (Spur) PT INR APTT Fibrinogen Puncture Site Patient Temperature O2 Saturation ABG pH ABG pCO2 ABG pO2 ABG HCO3 ABG O2 Content ABG Base Excess ABG Methemoglobin Parveen Test Hemoglobin Carboxyhemoglobin O2 Delivery Device Liter Flow Vent Setting Inspired O2 Critical Value Sodium Potassium Chloride Carbon Dioxide Anion Gap BUN Creatinine Estimated GFR POC Glucose 311 H 304 H Random Glucose Lactic Acid 10.2 H* Calcium Prot Corrected Calcium Magnesium Total Bilirubin AST ALT Alkaline Phosphatase Troponin I B-Natriuretic Peptide Total Protein Albumin Urine Color Urine Clarity Urine pH Ur Specific [place] Urine Protein Urine Glucose (UA) Urine Ketones Urine Occult Blood Urine Nitrate Urine Bilirubin Urine Urobilinogen Ur Leukocyte Esterase Urine RBC Urine WBC Ur Squamous Epith Cells Hyaline Casts Urine Mucus Micro UA Comment Ur Microscopic Review Urine Culture Comments Nasal Screen MRSA (PCR) Random Vancomycin Blood Type Blood Bank Comment 09/01/18 09/01/18 09/01/18 17:04 17:20 17:20 WBC RBC Hgb Hct MCV MCH MCHC RDW Plt Count MPV Prelim Diff (Auto) Neut % (Auto) Lymph % (Auto) [place] % (Auto) Eos % (Auto) Baso % (Auto) Neut # (Auto) Lymph # (Auto) [place] # (Auto) Eos # (Auto) Baso # (Auto) WBC Differential Diff Scan Seg Neuts % (Manual) Band Neuts % (Manual) Lymphocytes % (Manual) Monocytes % (Manual) Abs Neuts (Manual) Nucleated RBCs/100 WBC Differential Comment Toxic Granulation Toxic Vacuolation Platelet Estimate Platelet Morphology Acanthocytes (Spur) PT INR APTT Fibrinogen Puncture Site Art line Patient Temperature 98.6 O2 Saturation 97 ABG pH 7.55 H* ABG pCO2 22 L* ABG pO2 173 H ABG HCO3 19 L ABG O2 Content 14.1 ABG Base Excess -3.0 L ABG Methemoglobin 1.7 Parveen Test Hemoglobin 10.1 L Carboxyhemoglobin 0.9 O2 Delivery Device Ventilator Liter Flow Vent Setting Prvc ac Inspired O2 50 Critical Value Yes Sodium 137 Potassium 4.1 Chloride 98 Carbon Dioxide 21.1 Anion Gap 18 H BUN 51 H Creatinine 3.28 H Estimated GFR 18 L POC Glucose Random Glucose 272 H Lactic Acid 6.8 H* Calcium 6.8 L* Prot Corrected Calcium 7.8 L Magnesium 1.7 Total Bilirubin 2.7 H AST 76353 H ALT 5779 H Alkaline Phosphatase 73 Troponin I 1.62 H* B-Natriuretic Peptide Total Protein 5.2 L Albumin 2.7 L Urine Color Urine Clarity Urine pH Ur Specific [place] Urine Protein Urine Glucose (UA) Urine Ketones Urine Occult Blood Urine Nitrate Urine Bilirubin Urine Urobilinogen Ur Leukocyte Esterase Urine RBC Urine WBC Ur Squamous Epith Cells Hyaline Casts Urine Mucus Micro UA Comment Ur Microscopic Review Urine Culture Comments Nasal Screen MRSA (PCR) Random Vancomycin Blood Type Blood Bank Comment 09/01/18 09/01/18 09/01/18 17:20 17:52 23:28 WBC RBC Hgb Hct MCV MCH MCHC RDW Plt Count MPV Prelim Diff (Auto) Neut % (Auto) Lymph % (Auto) [place] % (Auto) Eos % (Auto) Baso % (Auto) Neut # (Auto) Lymph # (Auto) [place] # (Auto) Eos # (Auto) Baso # (Auto) WBC Differential Diff Scan Seg Neuts % (Manual) Band Neuts % (Manual) Lymphocytes % (Manual) Monocytes % (Manual) Abs Neuts (Manual) Nucleated RBCs/100 WBC Differential Comment Toxic Granulation Toxic Vacuolation Platelet Estimate Platelet Morphology Acanthocytes (Spur) PT 86.7 H D INR 8.7 H* APTT Fibrinogen Puncture Site Patient Temperature O2 Saturation ABG pH ABG pCO2 ABG pO2 ABG HCO3 ABG O2 Content ABG Base Excess ABG Methemoglobin Parveen Test Hemoglobin Carboxyhemoglobin O2 Delivery Device Liter Flow Vent Setting Inspired O2 Critical Value Sodium Potassium Chloride Carbon Dioxide Anion Gap BUN Creatinine Estimated GFR POC Glucose 265 H 234 H Random Glucose Lactic Acid Calcium Prot Corrected Calcium Magnesium Total Bilirubin AST ALT Alkaline Phosphatase Troponin I B-Natriuretic Peptide Total Protein Albumin Urine Color Urine Clarity Urine pH Ur Specific Ceiba Urine Protein Urine Glucose (UA) Urine Ketones Urine Occult Blood Urine Nitrate Urine Bilirubin Urine Urobilinogen Ur Leukocyte Esterase Urine RBC Urine WBC Ur Squamous Epith Cells Hyaline Casts Urine Mucus Micro UA Comment Ur Microscopic Review Urine Culture Comments Nasal Screen MRSA (PCR) Random Vancomycin Blood Type Blood Bank Comment 09/02/18 09/02/18 09/02/18 06:23 07:30 07:30 WBC RBC Hgb Hct MCV MCH MCHC RDW Plt Count MPV Prelim Diff (Auto) Neut % (Auto) Lymph % (Auto) Larue % (Auto) Eos % (Auto) Baso % (Auto) Neut # (Auto) Lymph # (Auto) Larue # (Auto) Eos # (Auto) Baso # (Auto) WBC Differential Diff Scan Seg Neuts % (Manual) Band Neuts % (Manual) Lymphocytes % (Manual) Monocytes % (Manual) Abs Neuts (Manual) Nucleated RBCs/100 WBC Differential Comment Toxic Granulation Toxic Vacuolation Platelet Estimate Platelet Morphology Acanthocytes (Spur) PT INR APTT Fibrinogen Puncture Site Patient Temperature O2 Saturation ABG pH ABG pCO2 ABG pO2 ABG HCO3 ABG O2 Content ABG Base Excess ABG Methemoglobin Parveen Test Hemoglobin Carboxyhemoglobin O2 Delivery Device Liter Flow Vent Setting Inspired O2 Critical Value Sodium Potassium Chloride Carbon Dioxide Anion Gap BUN Creatinine Estimated GFR POC Glucose 200 H Random Glucose Lactic Acid 4.5 H* Calcium Prot Corrected Calcium Magnesium Total Bilirubin AST ALT Alkaline Phosphatase Troponin I B-Natriuretic Peptide Total Protein Albumin Urine Color Urine Clarity Urine pH Ur Specific Ceiba Urine Protein Urine Glucose (UA) Urine Ketones Urine Occult Blood Urine Nitrate Urine Bilirubin Urine Urobilinogen Ur Leukocyte Esterase Urine RBC Urine WBC Ur Squamous Epith Cells Hyaline Casts Urine Mucus Micro UA Comment Ur Microscopic Review Urine Culture Comments Nasal Screen MRSA (PCR) Random Vancomycin 14.4 Blood Type Blood Bank Comment 09/02/18 09/02/18 09/02/18 07:30 07:30 07:30 WBC 9.3 RBC 3.45 L Hgb 10.6 L Hct 31.9 L MCV 92.6 D MCH 30.8 MCHC 33.3 RDW 14.7 Plt Count 172 D MPV 8.7 Prelim Diff (Auto) Slide review pending Neut % (Auto) 90.1 H Lymph % (Auto) 6.3 L Larue % (Auto) 3.4 Eos % (Auto) 0.0 Baso % (Auto) 0.2 Neut # (Auto) 8.4 H Lymph # (Auto) 0.6 L Larue # (Auto) 0.3 Eos # (Auto) 0.0 Baso # (Auto) 0.0 WBC Differential Manual diff final Diff Scan Seg Neuts % (Manual) 86 H Band Neuts % (Manual) 6 Lymphocytes % (Manual) 6 L Monocytes % (Manual) 2 Abs Neuts (Manual) 8.6 H Nucleated RBCs/100 WBC 1 H Differential Comment . Toxic Granulation 1+ H Toxic Vacuolation Present H Platelet Estimate Normal Platelet Morphology Normal Acanthocytes (Spur) PT 89.3 H INR 9.0 H* APTT Fibrinogen Puncture Site Patient Temperature O2 Saturation ABG pH ABG pCO2 ABG pO2 ABG HCO3 ABG O2 Content ABG Base Excess ABG Methemoglobin Parveen Test Hemoglobin Carboxyhemoglobin O2 Delivery Device Liter Flow Vent Setting Inspired O2 Critical Value Sodium 137 Potassium 3.9 Chloride 96 L Carbon Dioxide 28.5 Anion Gap 13 BUN 65 H Creatinine 3.52 H Estimated GFR 17 L POC Glucose Random Glucose 193 H Lactic Acid Calcium 7.0 L* Prot Corrected Calcium 8.0 L Magnesium Total Bilirubin 3.0 H AST 8258 H ALT 5179 H Alkaline Phosphatase 78 Troponin I B-Natriuretic Peptide Total Protein 5.2 L Albumin 2.7 L Urine Color Urine Clarity Urine pH Ur Specific Ceiba Urine Protein Urine Glucose (UA) Urine Ketones Urine Occult Blood Urine Nitrate Urine Bilirubin Urine Urobilinogen Ur Leukocyte Esterase Urine RBC Urine WBC Ur Squamous Epith Cells Hyaline Casts Urine Mucus Micro UA Comment Ur Microscopic Review Urine Culture Comments Nasal Screen MRSA (PCR) Random Vancomycin Blood Type Blood Bank Comment 09/02/18 09/02/18 09/02/18 10:00 11:22 16:25 WBC RBC Hgb Hct MCV MCH MCHC RDW Plt Count MPV Prelim Diff (Auto) Neut % (Auto) Lymph % (Auto) Larue % (Auto) Eos % (Auto) Baso % (Auto) Neut # (Auto) Lymph # (Auto) Larue # (Auto) Eos # (Auto) Baso # (Auto) WBC Differential Diff Scan Seg Neuts % (Manual) Band Neuts % (Manual) Lymphocytes % (Manual) Monocytes % (Manual) Abs Neuts (Manual) Nucleated RBCs/100 WBC Differential Comment Toxic Granulation Toxic Vacuolation Platelet Estimate Platelet Morphology Acanthocytes (Spur) PT 63.6 H D INR 6.4 H* APTT Fibrinogen Puncture Site Art line Patient Temperature 98.6 O2 Saturation 96 ABG pH 7.47 H ABG pCO2 32 L ABG pO2 139 H ABG HCO3 23 ABG O2 Content 14.4 ABG Base Excess -0.7 ABG Methemoglobin 1.7 Parveen Test Present Hemoglobin 10.4 L Carboxyhemoglobin 0.9 O2 Delivery Device Ventilator Liter Flow Vent Setting Ac/14/550/+5 Inspired O2 40 Critical Value No Sodium Potassium Chloride Carbon Dioxide Anion Gap BUN Creatinine Estimated GFR POC Glucose 149 H Random Glucose Lactic Acid Calcium Prot Corrected Calcium Magnesium Total Bilirubin AST ALT Alkaline Phosphatase Troponin I B-Natriuretic Peptide Total Protein Albumin Urine Color Urine Clarity Urine pH Ur Specific [place] Urine Protein Urine Glucose (UA) Urine Ketones Urine Occult Blood Urine Nitrate Urine Bilirubin Urine Urobilinogen Ur Leukocyte Esterase Urine RBC Urine WBC Ur Squamous Epith Cells Hyaline Casts Urine Mucus Micro UA Comment Ur Microscopic Review Urine Culture Comments Nasal Screen MRSA (PCR) Random Vancomycin Blood Type Blood Bank Comment 09/02/18 16:25 WBC RBC Hgb Hct MCV MCH MCHC RDW Plt Count MPV Prelim Diff (Auto) Neut % (Auto) Lymph % (Auto) Larue % (Auto) Eos % (Auto) Baso % (Auto) Neut # (Auto) Lymph # (Auto) Larue # (Auto) Eos # (Auto) Baso # (Auto) WBC Differential Diff Scan Seg Neuts % (Manual) Band Neuts % (Manual) Lymphocytes % (Manual) Monocytes % (Manual) Abs Neuts (Manual) Nucleated RBCs/100 WBC Differential Comment Toxic Granulation Toxic Vacuolation Platelet Estimate Platelet Morphology Acanthocytes (Spur) PT INR APTT Fibrinogen Puncture Site Patient Temperature O2 Saturation ABG pH ABG pCO2 ABG pO2 ABG HCO3 ABG O2 Content ABG Base Excess ABG Methemoglobin Parveen Test Hemoglobin Carboxyhemoglobin O2 Delivery Device Liter Flow Vent Setting Inspired O2 Critical Value Sodium Potassium Chloride Carbon Dioxide Anion Gap BUN Creatinine Estimated GFR POC Glucose Random Glucose Lactic Acid 3.8 H Calcium Prot Corrected Calcium Magnesium Total Bilirubin AST ALT Alkaline Phosphatase Troponin I B-Natriuretic Peptide Total Protein Albumin Urine Color Urine Clarity Urine pH Ur Specific Ceiba Urine Protein Urine Glucose (UA) Urine Ketones Urine Occult Blood Urine Nitrate Urine Bilirubin Urine Urobilinogen Ur Leukocyte Esterase Urine RBC Urine WBC Ur Squamous Epith Cells Hyaline Casts Urine Mucus Micro UA Comment Ur Microscopic Review Urine Culture Comments Nasal Screen MRSA (PCR) Random Vancomycin Blood Type Blood Bank Comment Result Diagrams: 09/02/18 07:30 09/02/18 07:30 Microbiology: Microbiology 09/01/18 00:05 Gram Stain - Final Sputum - Endotracheal Sputum Culture - Preliminary Light growth normal respiratory florence at 24 hours 09/01/18 00:05 Aerobic Blood Culture - Preliminary Blood - Peripheral No growth in 1 day Anaerobic Blood Culture - Preliminary No growth in 1 day 08/31/18 22:20 Aerobic Blood Culture - Preliminary Blood - Peripheral Viridans streptococcus grp Anaerobic Blood Culture - Preliminary No growth in 2 days 08/31/18 21:40 Streptococcus pneumoniae Antigen (M - Final Urine - Catheterized Urine Presumptive negative for streptococcus pneumoniae antigen, suggesting no current or recent infection. Infection due to Streptococcus pneumoniae cannot be ruled out since the antigen present in the sample may be below the detection limit of the test. 08/31/18 21:40 Legionella Antigen - Final Urine - Catheterized Urine Presumptive negative for Legionella pneumophila serogroup 1 antigen in urine, suggesting no recent or recurrent infection. Infection due to Legionella cannot be ruled out since other serogroups and species may cause disease, antigen may not be present in urine in early infection, and the level of antigen present in the urine may be below the detection limit of the test. Imaging: Abdomen/Pelvis CT 09/01/18 00:00 CONCLUSION: 1. Trace ascites, nonspecific. Also mild body wall edema. No organized or drainable fluid. 2. Diverticulosis of the sigmoid colon. No diverticulitis or other acute inflammatory changes. 3. Atherosclerosis of the aorta. Chest CT 09/01/18 00:00 CONCLUSION: 1. Bilateral pneumonia, especially right upper lobe. 2. Small bilateral pleural effusions; dependent/compressive atelectasis of both lower lobes. 3. Panchamber enlargement of the heart. Head CT 09/01/18 00:00 CONCLUSION: 1. No acute intracranial abnormality demonstrated. 2. Atrophy and chronic periventricular white matter changes. . Chest X-Ray 09/02/18 07:20 CONCLUSION: Increasing parenchymal changes on the right. Procedures: * Cardioversion * central line placement * Intubated Assessment and Plan - Disease Oriented Problem List (1) Cardiomyopathy (2) Atrial fibrillation (3) V-tach (4) Atrial fibrillation with rapid ventricular response (5) Renal failure, acute on chronic (6) Shortness of breath on exertion (7) Hyperlipidemia (8) Respiratory failure (9) Metabolic acidosis (10) Shock liver (11) Bilateral pneumonia - Symptom Scale (1) Pain 0-10 Scale: Unable to quantify (2) Dyspnea 0-10 Scale: Unable to quantify Pertinent Non-Medical Issues: Psychosocial: . Has children and grandchildren he enjoys spending time with. Retired. Was in the . From [place], moved to [place] 6 years ago. 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 Friends and family continue to pray for him. Legal:Patient is not capacitated to make his own health care decisions, uncertain if he will regain capacity. No written advance directives. According to [place] statutes, health care proxy decision making falls to his spouse, Jovita Ravi. Ethical issues impacting care:None. Important Contacts: Health care proxy, : Jovita Ravi: [phone] Prognosis: Will need to monitor over next few days for better prognostication. Code Status: Full Code Plan: * Patient is not capacitated to make his own health care decisions, uncertain if he will regain capacity. No written advance directives. According to [place] statutes, health care proxy decision making falls to his spouse, Jovita Ravi. * FULL CODE * Goals remain aggressive including FULL CODE and dialysis if needed. * SYMPTOMS: pain and dyspnea: sedated on mech vent, no obvious signs of discomfort or SOB. No new medication recommendations at this time. * Palliative care will continue to follow throughout hsopital course to assist with symptom management and clarification of medical treatment goals. Attestation Attestation: To help prompt me to consider important information that might be impacting today's encounter and assessment, information from prior notes written by myself or my colleagues may have been "brought forward" into today's note. My signature on this note, however, is an attestation that I personally performed the exam, history, and/or decision-making noted today, and, unless otherwise indicated, the interactions with patient, family, and staff as well as the review of records all occurred today. I also attest that the listed assessment and stated plan reflect my best clinical judgment today based on the combination of historical information, prior notes, and today's exam/ interactions. When time spent is documented, it refers only to time spent today by the signer, or if indicated, combined time spent today by collaborating physician/nurse practitioner.
[2018-09-02] MEDS: Latanoprost 0.005% Opth Drops 2.5 ML Bottle EACH EYE SCH (18:09)
[2018-09-02 18:20] LABS: Albumin 2.8 g/dL (3.4-5.0); Calcium 7.4 mg/dL (8.5-10.1); Carbon Dioxide 27.6 meq/L (21.0-32.0); Potassium 3.7 meq/L (3.5-5.1); Total Protein 5.1 g/dL (6.4-8.2)
[2018-09-02] MEDS: Azithromycin Inj 500 MG in Sodium Chlor 0.9% Inj 250 ML IV.SIG SCH (23:46)
[2018-09-03] MEDS: Chlorhexidine Gluconate 2% 1 Pack (2 Cloths) TOPICAL SCH (03:32)
[2018-09-03] MEDS: Oral Hygiene Kit OROPHARYNG SCH ×3 (03:34→15:30)
[2018-09-03] MEDS: fentaNYL 10 mcg/mL Premix Drip 2,500 MCG/250 ML BAG IV.SIG PRN (03:59)
[2018-09-03] MEDS: Hydrocortisone Sod Succinate 100 MG Vial IV.PUSH SCH ×3 (05:52→21:34)
[2018-09-03] MEDS: Aztreonam Inj 2 GM in Sodium Chloride 0.9% Inj 100 ML IV.SIG SCH ×3 (05:52→21:33)
[2018-09-03] MEDS: Insulin NovoLIN Regular Correctional Sugar Inj SQ SCH ×3 (05:52→18:25)
[2018-09-03] MEDS: Levothyroxine 75 MCG Tablet PO SCH (05:53)
[2018-09-03 06:19] LABS: Baso % (Auto) 0.2 % (0.0-2.0); Hematocrit 33.1 % (39.0-51.0); Hemoglobin 11.2 gm/dL (13.0-17.0); Lymph # (Auto) 0.4 th/mm3 (1.0-4.8); Lymph % (Auto) 4.9 % (9.0-44.0); Mean Corpuscular HGB Conc 33.7 % (32.0-36.0); Mean Corpuscular Hemoglobin 30.6 pg (27.0-34.0); Mean Corpuscular Volume 90.8 fL (80.0-100.0); Mean Platelet Volume 8.7 fL (7.0-11.0); Mono # (Auto) 0.3 th/mm3 (0.0-0.9); Mono % (Auto) 3.4 % (0.0-8.0); Neut # (Auto) 6.8 th/mm3 (1.8-7.7); Neut % (Auto) 91.5 % (16.0-70.0); Platelet Count 167 th/mm3 (150-450); Red Blood Count 3.65 mil/mm3 (4.50-5.90); Red Cell Distribution Width 14.8 % (11.6-17.2); White Blood Count 7.4 th/mm3 (4.0-11.0)
[2018-09-03 06:48] LABS: Albumin 2.8 g/dL (3.4-5.0); Anion Gap 16 meq/L (5-15); Blood Urea Nitrogen 70 mg/dL (7-18); Calcium 7.7 mg/dL (8.5-10.1); Carbon Dioxide 26.1 meq/L (21.0-32.0); Chloride 97 meq/L (98-107); Glucose,Random 156 mg/dL (74-106); Potassium 3.5 meq/L (3.5-5.1); Sodium 139 meq/L (136-145)
[2018-09-03 07:07] LABS: Alanine Aminotransferase 3836 U/L (12-78); Alkaline Phosphatase 83 U/L (45-117); Aspartate Aminotransferase 2611 U/L (15-37); Total Protein 5.4 g/dL (6.4-8.2)
[2018-09-03 07:53] LABS: Lymphocytes 6 % (9-44); Metamyelocytes 2 % (0-1); Monocytes 2 % (0-8); Platelet Estimate Normal (Normal); Platelet Morphology Normal (Normal); Tallied Nucleated RBC 6 (0-0)
[2018-09-03 07:54] LABS: Ovalocytes 1+
[2018-09-03] MEDS: Chlorhexidine 0.12% Oral Kit 15 ML UDC OROPHARYNG SCH ×2 (08:00→20:03)
--- NOTE | 2018-09-03 08:20 | XR ---
EXAM DATE: 09/03/2018 8:17 AM EDT AGE/SEX: 83 years / Male INDICATIONS: Short of breath. CLINICAL DATA: This is the patient's initial encounter. Patient reports that signs and symptoms have been present for 1 day and indicates a pain score of Nonresponsive. MEDICAL/SURGICAL HISTORY: . Cardiovascular disease. Hypertension. Chronic obstructive pulmonary disease. Diabetes . Pacemaker COMPARISON: [facility] [place], CHEST 1V SINGLE AP, 09/02/2018. . FINDINGS: A single AP view of the chest demonstrates mild improvement of right lung and left basilar density. C ardiomegaly and previous CABG. Left atrial appendage clip seen. Left-sided pacemaker noted. Endotrach eal tube unchanged. The cardiomediastinal contours are unremarkable. Osseous structures are intact. CONCLUSION: Slight improvement of right lung and left basilar density. Electronically signed by: Eliu Brink MD 09/03/2018 8:18 AM EDT
[2018-09-03] MEDS: Albumin Human 25% Inj 50 ML IV.SIG SCH ×2 (08:23→20:04)
[2018-09-03] MEDS: Famotidine PF Inj 20 MG/2 ML Vial IV.PUSH SCH ×2 (08:23→20:05)
[2018-09-03 08:45] LABS: INR 4.5 Ratio; Prothrombin Time 45.4 sec (9.8-11.6)
--- NOTE | 2018-09-03 10:12 | P.PNFP ---
Subjective Interval history: Patient was orally intubated and mechanically ventilated this morning. FiO2 of 40 and PEEP of 5. Patient will be extubated this afternoon per nurse. Patient currently on dobutamine and amiodarone drip. Patient is easily arousable and able to follow commands. Denies that he is in pain. Total output of 1800 overnight. <WolfHayleyn Delia T - 09/03/18 14:29> Results - Labs Result diagrams: 09/03/18 05:55 09/03/18 05:55 <Tiago Le - 09/03/18 17:57> Abnormal lab results 09/02/18 09/02/18 09/03/18 Range/Units 16:25 23:42 05:02 RBC (4.50-5.90) mil/mm3 Hgb (13.0-17.0) gm/dL Hct (39.0-51.0) % Neut % (Auto) (16.0-70.0) % Lymph % (Auto) (9.0-44.0) % Lymph # (Auto) (1.0-4.8) th/mm3 Seg Neuts % (Manual) (16-70) % Lymphocytes % (Manual) (9-44) % Metamyelocytes % (Man) (0-1) % Nucleated RBCs/100 WBC (0-0) /100 WBC Ovalocytes (None) PT (9.8-11.6) sec APTT (24.3-30.1) sec Fibrinogen (227-377) mg/dL Chloride 96 L (98-107) meq/L Anion Gap (5-15) meq/L BUN 67 H (7-18) mg/dL Creatinine 3.48 H (0.60-1.30) mg/dL Estimated GFR 17 L (>89) mL/min POC Glucose 146 H 176 H (68-110) mg/dl Random Glucose 136 H (74-106) mg/dL Lactic Acid (0.4-2.0) mmol/L Calcium 7.4 L* (8.5-10.1) mg/dL Total Bilirubin 3.1 H (0.2-1.0) mg/dL AST 5193 H (15-37) U/L ALT 4466 H (12-78) U/L Total Protein 5.1 L (6.4-8.2) g/dL Albumin 2.8 L (3.4-5.0) g/dL 09/03/18 09/03/18 09/03/18 Range/Units 05:55 05:55 08:05 RBC 3.65 L (4.50-5.90) mil/mm3 Hgb 11.2 L (13.0-17.0) gm/dL Hct 33.1 L (39.0-51.0) % Neut % (Auto) 91.5 H (16.0-70.0) % Lymph % (Auto) 4.9 L (9.0-44.0) % Lymph # (Auto) 0.4 L (1.0-4.8) th/mm3 Seg Neuts % (Manual) 88 H (16-70) % Lymphocytes % (Manual) 6 L (9-44) % Metamyelocytes % (Man) 2 H (0-1) % Nucleated RBCs/100 WBC 6 H (0-0) /100 WBC Ovalocytes 1+ H (None) PT 45.4 H D (9.8-11.6) sec APTT (24.3-30.1) sec Fibrinogen (227-377) mg/dL Chloride 97 L (98-107) meq/L Anion Gap 16 H (5-15) meq/L BUN 70 H (7-18) mg/dL Creatinine 3.52 H (0.60-1.30) mg/dL Estimated GFR (>89) mL/min POC Glucose (68-110) mg/dl Random Glucose 156 H (74-106) mg/dL Lactic Acid (0.4-2.0) mmol/L Calcium 7.7 L (8.5-10.1) mg/dL Total Bilirubin 4.1 H (0.2-1.0) mg/dL AST 2611 H (15-37) U/L ALT 3836 H (12-78) U/L Total Protein 5.4 L (6.4-8.2) g/dL Albumin 2.8 L (3.4-5.0) g/dL 09/03/18 09/03/18 09/03/18 Range/Units 08:05 08:05 08:05 RBC (4.50-5.90) mil/mm3 Hgb (13.0-17.0) gm/dL Hct (39.0-51.0) % Neut % (Auto) (16.0-70.0) % Lymph % (Auto) (9.0-44.0) % Lymph # (Auto) (1.0-4.8) th/mm3 Seg Neuts % (Manual) (16-70) % Lymphocytes % (Manual) (9-44) % Metamyelocytes % (Man) (0-1) % Nucleated RBCs/100 WBC (0-0) /100 WBC Ovalocytes (None) PT (9.8-11.6) sec APTT 45.9 H (24.3-30.1) sec Fibrinogen 185 L (227-377) mg/dL Chloride (98-107) meq/L Anion Gap (5-15) meq/L BUN (7-18) mg/dL Creatinine (0.60-1.30) mg/dL Estimated GFR (>89) mL/min POC Glucose (68-110) mg/dl Random Glucose (74-106) mg/dL Lactic Acid 3.4 H (0.4-2.0) mmol/L Calcium (8.5-10.1) mg/dL Total Bilirubin (0.2-1.0) mg/dL AST (15-37) U/L ALT (12-78) U/L Total Protein (6.4-8.2) g/dL Albumin (3.4-5.0) g/dL 09/03/18 09/03/18 Range/Units 11:25 17:15 RBC (4.50-5.90) mil/mm3 Hgb (13.0-17.0) gm/dL Hct (39.0-51.0) % Neut % (Auto) (16.0-70.0) % Lymph % (Auto) (9.0-44.0) % Lymph # (Auto) (1.0-4.8) th/mm3 Seg Neuts % (Manual) (16-70) % Lymphocytes % (Manual) (9-44) % Metamyelocytes % (Man) (0-1) % Nucleated RBCs/100 WBC (0-0) /100 WBC Ovalocytes (None) PT (9.8-11.6) sec APTT (24.3-30.1) sec Fibrinogen (227-377) mg/dL Chloride (98-107) meq/L Anion Gap (5-15) meq/L BUN (7-18) mg/dL Creatinine (0.60-1.30) mg/dL Estimated GFR (>89) mL/min POC Glucose 142 H 181 H (68-110) mg/dl Random Glucose (74-106) mg/dL Lactic Acid (0.4-2.0) mmol/L Calcium (8.5-10.1) mg/dL Total Bilirubin (0.2-1.0) mg/dL AST (15-37) U/L ALT (12-78) U/L Total Protein (6.4-8.2) g/dL Albumin (3.4-5.0) g/dL Short CBC 09/03/18 Range/Units 05:55 WBC 7.4 (4.0-11.0) th/mm3 Hgb 11.2 L (13.0-17.0) gm/dL Hct 33.1 L (39.0-51.0) % Plt Count 167 (150-450) th/mm3 BMP 09/02/18 09/03/18 16:25 05:55 Sodium 136 139 Potassium 3.7 3.5 Chloride 96 L 97 L Carbon Dioxide 27.6 26.1 BUN 67 H 70 H Creatinine 3.48 H 3.52 H Calcium 7.4 L* 7.7 L Liver Function 09/02/18 09/03/18 Range/Units 16:25 05:55 Total Bilirubin 3.1 H 4.1 H (0.2-1.0) mg/dL AST 5193 H 2611 H (15-37) U/L ALT 4466 H 3836 H (12-78) U/L Alkaline Phosphatase 79 83 (45-117) U/L Albumin 2.8 L 2.8 L (3.4-5.0) g/dL <Tiago Le L - 09/03/18 17:57> Abnormal lab results 09/02/18 09/02/18 09/02/18 Range/Units 10:00 11:22 16:25 RBC (4.50-5.90) mil/mm3 Hgb (13.0-17.0) gm/dL Hct (39.0-51.0) % Neut % (Auto) (16.0-70.0) % Lymph % (Auto) (9.0-44.0) % Lymph # (Auto) (1.0-4.8) th/mm3 Seg Neuts % (Manual) (16-70) % Lymphocytes % (Manual) (9-44) % Metamyelocytes % (Man) (0-1) % Nucleated RBCs/100 WBC (0-0) /100 WBC Ovalocytes (None) PT 63.6 H D (9.8-11.6) sec INR 6.4 H* Ratio APTT (24.3-30.1) sec Fibrinogen (227-377) mg/dL ABG pH 7.47 H (7.380-7.420) ABG pCO2 32 L (38-42) mmHg ABG pO2 139 H (61-120) mmHG Hemoglobin 10.4 L (12.0-16.0) G/DL Chloride (98-107) meq/L Anion Gap (5-15) meq/L BUN (7-18) mg/dL Creatinine (0.60-1.30) mg/dL Estimated GFR (>89) mL/min POC Glucose 149 H (68-110) mg/dl Random Glucose (74-106) mg/dL Lactic Acid (0.4-2.0) mmol/L Calcium (8.5-10.1) mg/dL Total Bilirubin (0.2-1.0) mg/dL AST (15-37) U/L ALT (12-78) U/L Total Protein (6.4-8.2) g/dL Albumin (3.4-5.0) g/dL 09/02/18 09/02/18 09/02/18 Range/Units 16:25 16:25 17:43 RBC (4.50-5.90) mil/mm3 Hgb (13.0-17.0) gm/dL Hct (39.0-51.0) % Neut % (Auto) (16.0-70.0) % Lymph % (Auto) (9.0-44.0) % Lymph # (Auto) (1.0-4.8) th/mm3 Seg Neuts % (Manual) (16-70) % Lymphocytes % (Manual) (9-44) % Metamyelocytes % (Man) (0-1) % Nucleated RBCs/100 WBC (0-0) /100 WBC Ovalocytes (None) PT (9.8-11.6) sec INR Ratio APTT (24.3-30.1) sec Fibrinogen (227-377) mg/dL ABG pH (7.380-7.420) ABG pCO2 (38-42) mmHg ABG pO2 (61-120) mmHG Hemoglobin (12.0-16.0) G/DL Chloride 96 L (98-107) meq/L Anion Gap (5-15) meq/L BUN 67 H (7-18) mg/dL Creatinine 3.48 H (0.60-1.30) mg/dL Estimated GFR 17 L (>89) mL/min POC Glucose 144 H (68-110) mg/dl Random Glucose 136 H (74-106) mg/dL Lactic Acid 3.8 H (0.4-2.0) mmol/L Calcium 7.4 L* (8.5-10.1) mg/dL Total Bilirubin 3.1 H (0.2-1.0) mg/dL AST 5193 H (15-37) U/L ALT 4466 H (12-78) U/L Total Protein 5.1 L (6.4-8.2) g/dL Albumin 2.8 L (3.4-5.0) g/dL 09/02/18 09/03/18 09/03/18 Range/Units 23:42 05:02 05:55 RBC 3.65 L (4.50-5.90) mil/mm3 Hgb 11.2 L (13.0-17.0) gm/dL Hct 33.1 L (39.0-51.0) % Neut % (Auto) 91.5 H (16.0-70.0) % Lymph % (Auto) 4.9 L (9.0-44.0) % Lymph # (Auto) 0.4 L (1.0-4.8) th/mm3 Seg Neuts % (Manual) 88 H (16-70) % Lymphocytes % (Manual) 6 L (9-44) % Metamyelocytes % (Man) 2 H (0-1) % Nucleated RBCs/100 WBC 6 H (0-0) /100 WBC Ovalocytes 1+ H (None) PT (9.8-11.6) sec INR Ratio APTT (24.3-30.1) sec Fibrinogen (227-377) mg/dL ABG pH (7.380-7.420) ABG pCO2 (38-42) mmHg ABG pO2 (61-120) mmHG Hemoglobin (12.0-16.0) G/DL Chloride (98-107) meq/L Anion Gap (5-15) meq/L BUN (7-18) mg/dL Creatinine (0.60-1.30) mg/dL Estimated GFR (>89) mL/min POC Glucose 146 H 176 H (68-110) mg/dl Random Glucose (74-106) mg/dL Lactic Acid (0.4-2.0) mmol/L Calcium (8.5-10.1) mg/dL Total Bilirubin (0.2-1.0) mg/dL AST (15-37) U/L ALT (12-78) U/L Total Protein (6.4-8.2) g/dL Albumin (3.4-5.0) g/dL 09/03/18 09/03/18 09/03/18 Range/Units 05:55 08:05 08:05 RBC (4.50-5.90) mil/mm3 Hgb (13.0-17.0) gm/dL Hct (39.0-51.0) % Neut % (Auto) (16.0-70.0) % Lymph % (Auto) (9.0-44.0) % Lymph # (Auto) (1.0-4.8) th/mm3 Seg Neuts % (Manual) (16-70) % Lymphocytes % (Manual) (9-44) % Metamyelocytes % (Man) (0-1) % Nucleated RBCs/100 WBC (0-0) /100 WBC Ovalocytes (None) PT 45.4 H D (9.8-11.6) sec INR Ratio APTT 45.9 H (24.3-30.1) sec Fibrinogen (227-377) mg/dL ABG pH (7.380-7.420) ABG pCO2 (38-42) mmHg ABG pO2 (61-120) mmHG Hemoglobin (12.0-16.0) G/DL Chloride 97 L (98-107) meq/L Anion Gap 16 H (5-15) meq/L BUN 70 H (7-18) mg/dL Creatinine 3.52 H (0.60-1.30) mg/dL Estimated GFR (>89) mL/min POC Glucose (68-110) mg/dl Random Glucose 156 H (74-106) mg/dL Lactic Acid (0.4-2.0) mmol/L Calcium 7.7 L (8.5-10.1) mg/dL Total Bilirubin 4.1 H (0.2-1.0) mg/dL AST 2611 H (15-37) U/L ALT 3836 H (12-78) U/L Total Protein 5.4 L (6.4-8.2) g/dL Albumin 2.8 L (3.4-5.0) g/dL 09/03/18 09/03/18 Range/Units 08:05 08:05 RBC (4.50-5.90) mil/mm3 Hgb (13.0-17.0) gm/dL Hct (39.0-51.0) % Neut % (Auto) (16.0-70.0) % Lymph % (Auto) (9.0-44.0) % Lymph # (Auto) (1.0-4.8) th/mm3 Seg Neuts % (Manual) (16-70) % Lymphocytes % (Manual) (9-44) % Metamyelocytes % (Man) (0-1) % Nucleated RBCs/100 WBC (0-0) /100 WBC Ovalocytes (None) PT (9.8-11.6) sec INR Ratio APTT (24.3-30.1) sec Fibrinogen 185 L (227-377) mg/dL ABG pH (7.380-7.420) ABG pCO2 (38-42) mmHg ABG pO2 (61-120) mmHG Hemoglobin (12.0-16.0) G/DL Chloride (98-107) meq/L Anion Gap (5-15) meq/L BUN (7-18) mg/dL Creatinine (0.60-1.30) mg/dL Estimated GFR (>89) mL/min POC Glucose (68-110) mg/dl Random Glucose (74-106) mg/dL Lactic Acid 3.4 H (0.4-2.0) mmol/L Calcium (8.5-10.1) mg/dL Total Bilirubin (0.2-1.0) mg/dL AST (15-37) U/L ALT (12-78) U/L Total Protein (6.4-8.2) g/dL Albumin (3.4-5.0) g/dL Short CBC 09/03/18 Range/Units 05:55 WBC 7.4 (4.0-11.0) th/mm3 Hgb 11.2 L (13.0-17.0) gm/dL Hct 33.1 L (39.0-51.0) % Plt Count 167 (150-450) th/mm3 BMP 09/02/18 09/03/18 16:25 05:55 Sodium 136 139 Potassium 3.7 3.5 Chloride 96 L 97 L Carbon Dioxide 27.6 26.1 BUN 67 H 70 H Creatinine 3.48 H 3.52 H Calcium 7.4 L* 7.7 L Liver Function 09/02/18 09/03/18 Range/Units 16:25 05:55 Total Bilirubin 3.1 H 4.1 H (0.2-1.0) mg/dL AST 5193 H 2611 H (15-37) U/L ALT 4466 H 3836 H (12-78) U/L Alkaline Phosphatase 79 83 (45-117) U/L Albumin 2.8 L 2.8 L (3.4-5.0) g/dL <Ashanti Bloom T - 09/03/18 10:12> - Imaging Impressions Chest X-Ray 09/03/18 00:00 CONCLUSION: Slight improvement of right lung and left basilar density. <Tiago Le L - 09/03/18 17:57> Impressions Chest X-Ray 09/03/18 00:00 CONCLUSION: Slight improvement of right lung and left basilar density. <Ashanti Bloom T - 09/03/18 10:12> Physical Exam Vital signs: Vital Signs 09/02/18 18:00 09/02/18 18:30 09/02/18 19:00 Temperature Pulse Rate 75 80 74 Respiratory Rate 14 16 14 Blood Pressure 107/60 113/65 105/60 Pulse Oximetry 99 99 98 09/02/18 19:30 09/02/18 20:00 09/02/18 20:21 Temperature 97.4 F L Pulse Rate 73 80 82 Respiratory Rate 12 16 18 Blood Pressure 105/58 L 114/67 Pulse Oximetry 98 99 100 09/02/18 21:00 09/02/18 22:00 09/02/18 23:00 Temperature Pulse Rate 78 81 79 Respiratory Rate 16 23 22 Blood Pressure Pulse Oximetry 97 99 97 09/03/18 00:00 09/03/18 01:00 09/03/18 01:04 Temperature 97.7 F Pulse Rate 80 76 80 Respiratory Rate 18 16 20 Blood Pressure Pulse Oximetry 99 100 09/03/18 02:00 09/03/18 03:00 09/03/18 04:00 Temperature 97.7 F Pulse Rate 80 77 75 Respiratory Rate 17 14 14 Blood Pressure 106/61 Pulse Oximetry 100 100 100 09/03/18 04:02 09/03/18 04:03 09/03/18 04:45 Temperature Pulse Rate 75 76 Respiratory Rate 12 25 H 18 Blood Pressure 106/61 Pulse Oximetry 100 99 99 09/03/18 04:46 09/03/18 05:00 09/03/18 06:00 Temperature Pulse Rate 81 82 85 Respiratory Rate 19 21 20 Blood Pressure 115/66 115/71 Pulse Oximetry 100 100 09/03/18 07:00 09/03/18 08:00 09/03/18 08:35 Temperature Pulse Rate 80 83 82 Respiratory Rate 18 19 17 Blood Pressure 113/67 115/65 Pulse Oximetry 99 100 100 09/03/18 09:00 09/03/18 10:00 09/03/18 11:00 Temperature 99.5 F Pulse Rate 86 88 87 Respiratory Rate 16 26 H 17 Blood Pressure 124/73 106/73 125/74 Pulse Oximetry 99 97 99 09/03/18 12:00 09/03/18 13:00 09/03/18 14:00 Temperature 98.1 F Pulse Rate 93 H 90 87 Respiratory Rate 23 17 21 Blood Pressure 121/71 119/64 115/68 Pulse Oximetry 97 96 97 09/03/18 15:00 09/03/18 16:00 09/03/18 16:27 Temperature 98.7 F Pulse Rate 87 88 86 Respiratory Rate 18 21 18 Blood Pressure 111/70 117/72 Pulse Oximetry 97 96 09/03/18 17:00 Temperature Pulse Rate 94 H Respiratory Rate 20 Blood Pressure 124/66 Pulse Oximetry 96 Intake & Output 09/02/18 09/03/18 09/03/18 18:59 06:59 18:59 Intake Total 1762 / 1762 900 / 900 540 / 540 Output Total 1000 / 1000 1800 / 1800 1700 / 1700 Balance 762 / 762 -900 / -900 -1160 / -1160 Weight 81.3 kg Intake: IV 1762 / 1762 900 / 900 540 / 540 Cordarone Inj 450 MG In D5W Inj 250 / 250 250 / 250 250 / 250 241 ML @ 1 MG/MIN 33.33 mls/hr IV.CONT TITRATE PRN Rx#: [id number] Sodium Bicarbonate 8.4% Inj 150 235 / 235 MEQ In Sterile Water for Inj 850 ML @ 150 mls/hr IV.CONT . Q6H40M [facility] Rx#:[id number] Pitressin Inj 40 UNIT In D5W 0 / 0 Inj 98 ML @ 0.04 UNITS/MIN 6 mls/hr IV.CONT CONT [facility] Rx#: [id number] Flexbumin 25% Inj 50 ML @ 50 50 / 50 50 / 50 50 / 50 mls/hr IV.SIG Q12H [facility] Rx#: [id number] Azithromycin Inj 500 MG In NS 250 / 250 Inj 250 ML @ 250 mls/hr IV.SIG Q24H [facility] Rx#:[id number] Azactam Inj 2 GM In NS Inj 100 200 / 200 100 / 100 200 / 200 ML @ 200 mls/hr IV.SIG Q8H [facility] Rx#:[id number] Calcium Chloride Inj 1 GM In 110 / 110 D5W Inj 100 ML @ 110 mls/hr IV. SIG ONCE ONE Rx#:[id number] Magnesium Sulfate Inj 2 GM In 100 / 100 NS Inj 96 ML @ 50 mls/hr IV.SIG ONCE ONE Rx#:[id number] Levophed Inj 4 MG In NS Inj 246 0 / 0 ML @ 2 MCG/MIN 7.5 mls/hr IV. SIG TITRATE PRN Rx#:[id number] Vitamin K Inj 10 MG In D5W Inj 102 / 102 50 ML @ 102 mls/hr IV.SIG STAT STA Rx#:[id number] Vancomycin Inj 1,500 MG In NS 515 / 515 Inj 500 ML @ 250 mls/hr IV.SIG ONCE ONE Rx#:[id number] fentaNYL 10 mcg/mL Premix Drip 250 / 250 40 / 40 2,500 mcg In 250 ml @ 50 MCG/HR 5 mls/hr IV.SIG TITRATE PRN Rx #:[id number] Flagyl 500 MG Inj 100 ML @ 100 200 / 200 mls/hr IV.SIG Q8H [facility] Rx#: [id number] Output: Urine Amount (Catheter) 1000 / 1000 1800 / 1800 1700 / 1700 Indwelling Urethral Catheter 1000 / 1000 1800 / 1800 1700 / 1700 Other: Date of Last Bowel Movement 08/29/18 08/29/18 08/29/18 # Bowel Movements 0 <Young,Tiago L - 09/03/18 17:57> Vital Signs 09/02/18 10:31 09/02/18 11:00 09/02/18 11:30 Temperature Pulse Rate 71 70 68 Respiratory Rate 19 12 12 Blood Pressure 102/58 L 97/57 L 95/57 L Pulse Oximetry 98 98 98 09/02/18 12:00 09/02/18 12:30 09/02/18 13:00 Temperature 97.6 F Pulse Rate 68 68 70 Respiratory Rate 14 14 14 Blood Pressure 101/60 106/59 L 102/59 L Pulse Oximetry 99 97 97 09/02/18 13:30 09/02/18 14:00 09/02/18 14:30 Temperature Pulse Rate 69 71 78 Respiratory Rate 16 32 H 17 Blood Pressure 103/57 L 97/57 L 106/63 Pulse Oximetry 95 87 L 98 09/02/18 15:00 09/02/18 15:30 09/02/18 16:00 Temperature 97.7 F Pulse Rate 73 74 72 Respiratory Rate 17 18 12 Blood Pressure 109/61 106/62 104/62 Pulse Oximetry 97 97 99 09/02/18 16:30 09/02/18 17:00 09/02/18 17:30 Temperature Pulse Rate 72 84 76 Respiratory Rate 13 19 14 Blood Pressure 106/61 103/68 105/61 Pulse Oximetry 98 100 99 09/02/18 18:00 09/02/18 18:30 09/02/18 19:00 Temperature Pulse Rate 75 80 74 Respiratory Rate 14 16 14 Blood Pressure 107/60 113/65 105/60 Pulse Oximetry 99 99 98 09/02/18 19:30 09/02/18 20:00 09/02/18 20:21 Temperature 97.4 F L Pulse Rate 73 80 82 Respiratory Rate 12 16 18 Blood Pressure 105/58 L 114/67 Pulse Oximetry 98 99 100 09/02/18 21:00 09/02/18 22:00 09/02/18 23:00 Temperature Pulse Rate 78 81 79 Respiratory Rate 16 23 22 Blood Pressure Pulse Oximetry 97 99 97 09/03/18 00:00 09/03/18 01:00 09/03/18 01:04 Temperature 97.7 F Pulse Rate 80 76 80 Respiratory Rate 18 16 20 Blood Pressure Pulse Oximetry 99 100 09/03/18 02:00 09/03/18 03:00 09/03/18 04:00 Temperature 97.7 F Pulse Rate 80 77 75 Respiratory Rate 17 14 14 Blood Pressure 106/61 Pulse Oximetry 100 100 100 09/03/18 04:02 09/03/18 04:03 09/03/18 04:45 Temperature Pulse Rate 75 Respiratory Rate 12 18 Blood Pressure 106/61 Pulse Oximetry 100 99 09/03/18 04:46 09/03/18 05:00 09/03/18 06:00 Temperature Pulse Rate 81 82 85 Respiratory Rate 19 Blood Pressure Pulse Oximetry 09/03/18 08:35 Temperature Pulse Rate 82 Respiratory Rate 17 Blood Pressure Pulse Oximetry 100 Intake & Output 09/02/18 09/03/18 09/03/18 18:59 06:59 18:59 Intake Total 1762 / 1762 900 / 900 Output Total 1000 / 1000 1800 / 1800 Balance 762 / 762 -900 / -900 Weight 81.3 kg Intake: IV 1762 / 1762 900 / 900 Cordarone Inj 450 MG In D5W Inj 250 / 250 250 / 250 241 ML @ 1 MG/MIN 33.33 mls/hr IV.CONT TITRATE PRN Rx#: [id number] Sodium Bicarbonate 8.4% Inj 150 235 / 235 MEQ In Sterile Water for Inj 850 ML @ 150 mls/hr IV.CONT . Q6H40M [facility] Rx#:[id number] Flexbumin 25% Inj 50 ML @ 50 50 / 50 50 / 50 mls/hr IV.SIG Q12H [facility] Rx#: [id number] Azithromycin Inj 500 MG In NS 250 / 250 Inj 250 ML @ 250 mls/hr IV.SIG Q24H [facility] Rx#:[id number] Azactam Inj 2 GM In NS Inj 100 200 / 200 100 / 100 ML @ 200 mls/hr IV.SIG Q8H [facility] Rx#:[id number] Calcium Chloride Inj 1 GM In 110 / 110 D5W Inj 100 ML @ 110 mls/hr IV. SIG ONCE ONE Rx#:[id number] Magnesium Sulfate Inj 2 GM In 100 / 100 NS Inj 96 ML @ 50 mls/hr IV.SIG ONCE ONE Rx#:[id number] Vitamin K Inj 10 MG In D5W Inj 102 / 102 50 ML @ 102 mls/hr IV.SIG STAT [facility] Rx#:[id number] Vancomycin Inj 1,500 MG In NS 515 / 515 Inj 500 ML @ 250 mls/hr IV.SIG ONCE ONE Rx#:[id number] fentaNYL 10 mcg/mL Premix Drip 250 / 250 2,500 mcg In 250 ml @ 50 MCG/HR 5 mls/hr IV.SIG TITRATE PRN Rx #:[id number] Flagyl 500 MG Inj 100 ML @ 100 200 / 200 mls/hr IV.SIG Q8H [facility] Rx#: [id number] Output: Urine Amount (Catheter) 1000 / 1000 1800 / 1800 Indwelling Urethral Catheter 1000 / 1000 1800 / 1800 Other: Date of Last Bowel Movement 08/29/18 08/29/18 # Bowel Movements 0 <Ashanti Bloom T - 09/03/18 10:12> Narrative: General: Elderly gentleman intubated on mechanical ventilation but alert and responsive. Cardio: Regular rate and rhythm, Patient has subclavian central line in place. Pulmonary: Patient currently intubated and mechanically ventilated with an FiO2 of 40% and a PEEP setting of 5. Patient had mild wheezing bilaterally but no rhonchi or crackles are appreciated. GI: Abdomen soft, distended, distant bowel sounds heard, nontender on palpation Extremities: Moderate swelling in upper extremities. No cyanosis or edema in lower extremities. Neuro: Patient was able to shake his head when asked questions, and follow commands such as to wiggle his toes. Patient able to open his eyes, move his head, and attempted to speak but could not be understood. : kiser catheter in place, <Ashanti Bloom T - 09/03/18 14:29> - Urinary Catheter Management Indwelling Urethral Catheter Cath placed during this visit: no <Tiago Le 09/03/18 17:57> yes <Ashanti Bloom 09/03/18 14:57> Reason for continuing: Hourly intake/output <Ashanti Bloom 09/03/18 10:12 > Insertion date: 08/31/18 <Ashanti Bloom 09/03/18 10:12> Insertion time: 22:00 <Ashanti Bloom 09/03/18 10:12> Assessment and Plan - Assessment (1) Cardiogenic shock Code(s): R57.0 - Cardiogenic shock Status: Acute (2) Respiratory failure Code(s): J96.90 - Respiratory failure, unspecified, unspecified whether with hypoxia or hypercapnia Status: Acute (3) Shock liver Code(s): K72.00 - Acute and subacute hepatic failure without coma Status: Acute (4) Streptococcus viridans infection Code(s): A49.1 - Streptococcal infection, unspecified site Status: Acute (5) Bilateral pneumonia Code(s): J18.9 - Pneumonia, unspecified organism Status: Acute (6) Renal failure, acute on chronic Code(s): N17.9 - Acute kidney failure, unspecified; N18.9 - Chronic kidney disease, unspecified Status: Acute (7) Atrial fibrillation with rapid ventricular response Code(s): I48.91 - Unspecified atrial fibrillation Status: Acute (8) Cardiomyopathy Code(s): I42.9 - Cardiomyopathy, unspecified Status: Chronic (9) V-tach Code(s): I47.2 - Ventricular tachycardia Status: Chronic (10) Hyperlipidemia Code(s): E78.5 - Hyperlipidemia, unspecified Status: Acute (11) Hypothyroidism Code(s): E03.9 - Hypothyroidism, unspecified Status: Chronic <Tiago Le - 09/03/18 17:57> (1) Cardiogenic shock Code(s): R57.0 - Cardiogenic shock Status: Acute Plan: 83-year-old male with a history of A. fib , hypertension, hyperlipidemia, ICD presented to the ED with worsening shortness of breath. Originally admitted for A.fib with RVR. Patient transferred to the ICU on 08/31 for respiratory failure in the setting of cardiogenic shock. Currently intubated, mechanically ventilated. [employer] managing. -s/p electrical cardioversion 09/01, patient successfully converted to sinus rhythm -Phenylephrine titrated off and levophed discontinued -Currently on Dobutamine 2.5mcg/kg/min, amiodarone 16.7mls/hr (2) Respiratory failure Code(s): J96.90 - Respiratory failure, unspecified, unspecified whether with hypoxia or hypercapnia Status: Acute Plan: Patient currently intubated and mechanically ventilated, 95% on 40% FiO2, a PEEP of 5. -Lactic acid trending down -Most recent ABG demonstrates pH of 7.47, HCO3 of 23, CO2 32 -DuoNeb every 4 hours (3) Shock liver Code(s): K72.00 - Acute and subacute hepatic failure without coma Status: Acute Plan: Liver enzymes trending down continue to monitor s/p Vit. K x2 INR improved to 4.5 (4) Streptococcus viridans infection Code(s): A49.1 - Streptococcal infection, unspecified site Status: Acute Plan: ID consulted, appreciate recommendations Blood culture 08/31 11/04 positive for strep viridans Repeat blood cultures pending Echo 2D Limited pending Continue patient on aztreonam and vanc Pharmacy doing vanc dosing (5) Bilateral pneumonia Code(s): J18.9 - Pneumonia, unspecified organism Status: Acute Plan: CT of the chest demonstrated bilateral pneumonia particularly in the right upper lobe. Patient began on broad-spectrum antibiotics. Sputum Gram stain showed multiple white blood cells but no organisms. Patient status post 1 dose of vancomycin. -Strep pneumoniae antigen negative -Legionella antigen negative -Continue mechanical ventilation, PRVC/AC -DuoNeb every 4 hours scheduled and as needed -Continue azithromycin -Continue aztreonam (6) Renal failure, acute on chronic Code(s): N17.9 - Acute kidney failure, unspecified; N18.9 - Chronic kidney disease, unspecified Status: Acute Plan: Nephrology on board Likely due to ATN due to hypoperfusion, possible sepsis Discontinued Bicarb drip continue Bumex 1mg IV q12h (7) Atrial fibrillation with rapid ventricular response Code(s): I48.91 - Unspecified atrial fibrillation Status: Acute Plan: Cardiology following s/p Cardioversion Continue amiodarone (8) Cardiomyopathy Code(s): I42.9 - Cardiomyopathy, unspecified Status: Chronic Plan: Echo 10/2017, EF=17%, LAE, LVH, PILY, Mod MR, Mod AI, Mod TR, aortic cusp thickening. * Please see plan above for cardiogenic shock (9) V-tach Code(s): I47.2 - Ventricular tachycardia Status: Chronic Plan: s/p ICD changed on 07/21/18 (10) Hyperlipidemia Code(s): E78.5 - Hyperlipidemia, unspecified Status: Acute Plan: Hold fenofibrate given acute LFT elevation (11) Hypothyroidism Code(s): E03.9 - Hypothyroidism, unspecified Status: Chronic Plan: TSH within normal limits, free T4 just above the upper limit of normal. -Continue levothyroxine 75mcg daily <Ashanti Bloom - 09/03/18 14:57> - Attending Attestation The exam, history, and the medical decision-making described in the above note were completed with the assistance of the resident physician. I reviewed and agree with the findings presented. I attest that I had a [id number] encounter with the patient on the same day with the resident. <Tiago Le - 09/03/18 17:57> <Ashanti Bloom T - Last Filed: 09/03/18 14:57> (6) Renal failure, acute on chronic Qualifiers: Acute renal failure type: unspecified Chronic kidney disease stage: unspecified stage Qualified Code(s): N17.9 - Acute kidney failure, unspecified ; N18.9 - Chronic kidney disease, unspecified <Tiago Le - Last Filed: 09/03/18 17:57> (6) Renal failure, acute on chronic Qualifiers: Acute renal failure type: unspecified Chronic kidney disease stage: unspecified stage Qualified Code(s): N17.9 - Acute kidney failure, unspecified ; N18.9 - Chronic kidney disease, unspecified <Ashanti Bloom - Last Filed: 09/03/18 14:57> (6) Renal failure, acute on chronic Qualifiers: Acute renal failure type: unspecified Chronic kidney disease stage: unspecified stage Qualified Code(s): N17.9 - Acute kidney failure, unspecified ; N18.9 - Chronic kidney disease, unspecified <Tiago Le - Last Filed: 09/03/18 17:57> (6) Renal failure, acute on chronic Qualifiers: Acute renal failure type: unspecified Chronic kidney disease stage: unspecified stage Qualified Code(s): N17.9 - Acute kidney failure, unspecified ; N18.9 - Chronic kidney disease, unspecified
--- NOTE | 2018-09-03 10:29 | P.CONID ---
History of Present Illness Service: Infectious disease Consult date: 09/03/18 Requesting Physician: Tiago Le Reason for Consult: Evaluate patient with one blood culture positive for strep viridans Primary Care Provider: Davy Walters MD Chief Complaint: atrial fib with RVR History of Present Illness: Patient seen and examined. Records reviewed. Patient is an 83-year-old male, presented to the hospital complaining of shortness of breath for about a month. He was last admitted in July, and at that time he underwent replacement of his AICD generator. Patient stated that he has been having shortness of breath, and more recently the shortness of breath has become progressively worse. He has had poor appetite. He has been very weak and gets tired easily. He has not had any fever chills or sweats. Denies any cough or congestion, no nausea or vomiting or diarrhea, no urinary complaints. On presentation, patient was found to be in atrial fibrillation with RVR. He was manage conservatively with medication. His chest x-ray on admission showed clear lungs. He was admitted August 28. On August 31 patient had worsening shortness of breath and he ended up getting intubated that day. He has remained intubated since. One blood culture was done and it is growing strep viridans. Another blood culture was done on September 01 and that is negative so far. Patient has been afebrile. He was cardioverted on September 01 and has remained in normal sinus rhythm. Patient was previously on pressors after he got intubated, and his pressors have been tapered off. He is on dobutamine drip for inotropic support. He is on Cordarone drip. Patient remains on the vent, and currently on CPAP. He is on fentanyl drip. He has remained afebrile. His WBC went up after he got intubated, but has come down to normal. His creatinine also has risen, though he has good urine output. Nephrology is following him. Infectious disease consultation has been requested to make recommendation regarding the one positive blood culture with strep viridans. Review of Systems unobtainable due to endotracheal tube Constitutional: Denies fever(s) PMFSH - History History Provided By: Patient - Medical History Medical History: Medical History (Last Reviewed 09/03/18 @ 10:18 by Leeanna Sanchez MD) Afib COPD (chronic obstructive pulmonary disease) Diabetes Glaucoma HLD (hyperlipidemia) HTN (hypertension) Hypothyroid ICD (implantable cardioverter-defibrillator) in place Mitral regurgitation Skin cancer Ventricular tachycardia - Surgical History Surgical History: Surgical History (Last Reviewed 09/03/18 @ 10:18 by Leeanna Sanchez MD) H/O sinus surgery Hx of CABG - Family History Family History: Family History (Last Updated 08/28/18 @ 22:09 by Ashanti Bloom MD, R2) Father Colon cancer - Tobacco History Second Hand Smoke Exposure: No Smoking Status: Former smoker - Alcohol History How Often Do You Have a Drink Containing Alcohol: Never - Substance Use History Substance History: No History of Abuse - Travel History History of Recent Travel: No Recent Travel in the [place] Within the Last 8 Weeks: No Recent Travel Out of the Country Within the Last 8 Weeks: No - Immunization History Tetanus Immunization: Unsure Hx Influenza Vaccine This Season: No Medications and Allergies Active Medications: Active Medications Albuterol (Duoneb Neb (Prn)) 1 ampul NEB Q2HR NEB PRN PRN Reason: SHORTNESS OF BREATH Albuterol (Duoneb Neb (Jaspal)) 1 ampul NEB Q4HR NEB [facility] Last Admin: 09/03/18 08:36 Dose: 1 ampul Amiodarone HCl (Cordarone) 200 mg PO BID [facility] Last Admin: 09/01/18 00:32 Dose: Not Given Bumetanide (Bumex Inj) 1 mg IV.PUSH Q12H [facility] Last Admin: 09/03/18 08:23 Dose: 1 mg Chlorhexidine Gluconate (Peridex 0.12% Oral Kit) 15 ml OROPHARYNG BID@0800, 2000 [facility] Last Admin: 09/02/18 20:26 Dose: 15 ml Chlorhexidine Gluconate (Chlorhexidine 2% Cloth) 3 pack TOPICAL DAILY@0400 JASPAL Stop: 09/06/18 03:59 Last Admin: 09/03/18 03:32 Dose: 3 pack Chlorhexidine Gluconate (Chlorhexidine 2% Cloth) 3 pack TOPICAL DAILY@0400 PRN PRN Reason: Extra cloth needed Stop: 09/06/18 03:59 Dextrose (D50w Vial) 50 ml IV.PUSH UNSCH PRN PRN Reason: PER HYPOGLYCEMIA PROTOCOL Famotidine (Pepcid Pf Inj) 10 mg IV.PUSH Q12HR [facility] Last Admin: 09/03/18 08:23 Dose: 10 mg Glucagon (Glucagon Inj) 1 mg OTHER PRN PRN PRN Reason: for Hypoglycemia Protocol Hydrocortisone Sodium Succinate (Solucortef Inj) 100 mg IV.PUSH Q8HR [facility] Last Admin: 09/03/18 05:52 Dose: 100 mg Diltiazem HCl 125 mg/ Sodium (Chloride) 125 mls @ 5 mls/hr IV.CONT TITRATE PRN ; Protocol PRN Reason: Per Protocol Last Titration: 08/29/18 13:59 Dose: Infused Albumin Human (Flexbumin 25% Inj) 50 mls @ 50 mls/hr IV.SIG Q12H [facility] Last Admin: 09/03/18 08:23 Dose: 50 mls/hr Aztreonam 2 gm/ Sodium (Chloride) 100 mls @ 200 mls/hr IV.SIG Q8H [facility] Last Admin: 09/03/18 05:52 Dose: 200 mls/hr Amiodarone HCl 450 mg/ (Dextrose) 250 mls @ 33.33 mls/hr IV.CONT TITRATE PRN; Protocol PRN Reason: Per Protocol Last Admin: 09/03/18 02:16 Dose: 1 mg/min, 33.33 mls/hr Dopamine HCl 800 mg/ Sodium (Chloride) 520 mls @ 8.07 mls/hr IV.CONT TITRATE PRN; Protocol PRN Reason: See Protocol Last Titration: 08/31/18 23:00 Dose: Infused Phenylephrine HCl 80 mg/ (Sodium Chloride) 500 mls @ 15 mls/hr IV.CONT TITRATE PRN; Protocol PRN Reason: See prorocol Last Titration: 09/01/18 14:35 Dose: Infused Norepinephrine Bitartrate 4 mg (/ Sodium Chloride) 250 mls @ 7.5 mls/hr IV.SIG TITRATE PRN; Protocol PRN Reason: Per Protocol Last Titration: 09/02/18 03:13 Dose: 0 mcg/min, 0 mls/hr Dobutamine HCl 500 mg/ (Dextrose) 250 mls @ 5.17 mls/hr IV.CONT .Q24H [facility] Last Admin: 09/03/18 04:51 Dose: Not Given Sodium Chloride (Ns Inj) 1,000 mls @ 0 mls/hr IV.SIG BOLUS JASPAL Azithromycin 500 mg/ Sodium (Chloride) 250 mls @ 250 mls/hr IV.SIG Q24H [facility] Last Infusion: 09/03/18 00:45 Dose: Infused Fentanyl (Fentanyl 10 Mcg/Ml Premix Drip) 2,500 mcg in 250 mls @ 5 mls/hr IV.SIG TITRATE PRN; Protocol PRN Reason: Per Protocol Last Admin: 09/03/18 03:59 Dose: 100 mcg/hr, 10 mls/hr Vasopressin 40 unit/ Dextrose 100 mls @ 6 mls/hr IV.CONT CONT [facility]; Protocol Last Infusion: 09/02/18 08:15 Dose: 0 units/min, 0 mls/hr Insulin Human Regular (Novolin R Correctional Sugar Inj) 0 units SQ Q6HR [facility]; Protocol Last Admin: 09/03/18 05:52 Dose: Not Given Latanoprost (Xalatan 0.005% Opth Drops) 1 drop EACH EYE QPM [facility] Last Admin: 09/02/18 18:09 Dose: 1 drop Levothyroxine Sodium (Synthroid) 75 mcg PO DAILY@0600 [facility] Last Admin: 09/03/18 05:53 Dose: Not Given Metoprolol Tartrate (Lopressor) 25 mg PO BID [facility] Last Admin: 09/01/18 00:33 Dose: Not Given Miscellaneous Medication () 1 each OROPHARYNG 0000,0400,1200,1600 [facility] Last Admin: 09/03/18 03:34 Dose: 1 each Morphine Sulfate (Morphine Inj) 4 mg IV.PUSH Q2H PRN PRN Reason: Pain6-10 Last Admin: 09/01/18 08:59 Dose: 4 mg Pharmacy Profile Note (Vancomycin Consult Pharmacy) 1 each OTHER UNSCH PRN PRN Reason: Pharmacy to dose Rivaroxaban (Xarelto) 15 mg PO QPM [facility] Last Admin: 08/31/18 17:44 Dose: 15 mg Sodium Chloride (Ns Flush) 2 ml IV.FLUSH BID [facility] Last Admin: 09/03/18 08:24 Dose: 2 ml Sodium Chloride (Ns Flush) 2 ml IV.FLUSH PRN PRN PRN Reason: FLUSH AFTER USING IV ACCESS Terbutaline Sulfate (Brethine Inj) 1 mg SQ UNSCH PRN PRN Reason: For Extravasation Allergies Allergy/AdvReac Type Severity Reaction Status Date / Time prednisone Allergy Severe Weight loss Verified 08/28/18 14:33 penicillin G Allergy Intermediate Hives Verified 08/28/18 14:33 Sulfa (Sulfonamide Allergy Intermediate Hives Verified 08/28/18 14:33 Antibiotics) Home Medications Medication Instructions Recorded Confirmed Type fenofibrate 160 mg PO DAILY 07/22/18 08/28/18 History latanoprost 1 drp OPHTHALMIC (EYE) QPM 07/22/18 08/28/18 History levothyroxine [Synthroid] 75 mcg PO DAILY 07/22/18 08/28/18 History pitavastatin calcium [Livalo] 2 mg PO 3XW 07/22/18 08/28/18 History metoprolol tartrate 25 mg PO BID 08/28/18 08/28/18 History rivaroxaban [Xarelto] 15 mg PO QPM 08/28/18 08/28/18 History torsemide 20 mg PO EVERY OTHER DAY 08/28/18 08/28/18 History amiodarone 200 mg PO 08/29/18 History Exam Vital signs: Vital Signs 09/02/18 10:31 09/02/18 11:00 09/02/18 11:30 Temperature Pulse Rate 71 70 68 Respiratory Rate 19 12 12 Blood Pressure 102/58 L 97/57 L 95/57 L Pulse Oximetry 98 98 98 09/02/18 12:00 09/02/18 12:30 09/02/18 13:00 Temperature 97.6 F Pulse Rate 68 68 70 Respiratory Rate 14 14 14 Blood Pressure 101/60 106/59 L 102/59 L Pulse Oximetry 99 97 97 09/02/18 13:30 09/02/18 14:00 09/02/18 14:30 Temperature Pulse Rate 69 71 78 Respiratory Rate 16 32 H 17 Blood Pressure 103/57 L 97/57 L 106/63 Pulse Oximetry 95 87 L 98 09/02/18 15:00 09/02/18 15:30 09/02/18 16:00 Temperature 97.7 F Pulse Rate 73 74 72 Respiratory Rate 17 18 12 Blood Pressure 109/61 106/62 104/62 Pulse Oximetry 97 97 99 09/02/18 16:30 09/02/18 17:00 09/02/18 17:30 Temperature Pulse Rate 72 84 76 Respiratory Rate 13 19 14 Blood Pressure 106/61 103/68 105/61 Pulse Oximetry 98 100 99 09/02/18 18:00 09/02/18 18:30 09/02/18 19:00 Temperature Pulse Rate 75 80 74 Respiratory Rate 14 16 14 Blood Pressure 107/60 113/65 105/60 Pulse Oximetry 99 99 98 09/02/18 19:30 09/02/18 20:00 09/02/18 20:21 Temperature 97.4 F L Pulse Rate 73 80 82 Respiratory Rate 12 16 18 Blood Pressure 105/58 L 114/67 Pulse Oximetry 98 99 100 09/02/18 21:00 09/02/18 22:00 09/02/18 23:00 Temperature Pulse Rate 78 81 79 Respiratory Rate 16 23 22 Blood Pressure Pulse Oximetry 97 99 97 09/03/18 00:00 09/03/18 01:00 09/03/18 01:04 Temperature 97.7 F Pulse Rate 80 76 80 Respiratory Rate 18 16 20 Blood Pressure Pulse Oximetry 99 100 09/03/18 02:00 09/03/18 03:00 09/03/18 04:00 Temperature 97.7 F Pulse Rate 80 77 75 Respiratory Rate 17 14 14 Blood Pressure 106/61 Pulse Oximetry 100 100 100 09/03/18 04:02 09/03/18 04:03 09/03/18 04:45 Temperature Pulse Rate 75 Respiratory Rate 12 18 Blood Pressure 106/61 Pulse Oximetry 100 99 09/03/18 04:46 09/03/18 05:00 09/03/18 06:00 Temperature Pulse Rate 81 82 85 Respiratory Rate 19 Blood Pressure Pulse Oximetry 09/03/18 08:35 Temperature Pulse Rate 82 Respiratory Rate 17 Blood Pressure Pulse Oximetry 100 Intake & Output 09/02/18 09/03/18 09/03/18 18:59 06:59 18:59 Intake Total 1762 / 1762 900 / 900 Output Total 1000 / 1000 1800 / 1800 Balance 762 / 762 -900 / -900 Weight 81.3 kg Intake: IV 1762 / 1762 900 / 900 Cordarone Inj 450 MG In D5W Inj 250 / 250 250 / 250 241 ML @ 1 MG/MIN 33.33 mls/hr IV.CONT TITRATE PRN Rx#: [id number] Sodium Bicarbonate 8.4% Inj 150 235 / 235 MEQ In Sterile Water for Inj 850 ML @ 150 mls/hr IV.CONT . Q6H40M [facility] Rx#:[id number] Flexbumin 25% Inj 50 ML @ 50 50 / 50 50 / 50 mls/hr IV.SIG Q12H [facility] Rx#: [id number] Azithromycin Inj 500 MG In NS 250 / 250 Inj 250 ML @ 250 mls/hr IV.SIG Q24H [facility] Rx#:[id number] Azactam Inj 2 GM In NS Inj 100 200 / 200 100 / 100 ML @ 200 mls/hr IV.SIG Q8H [facility] Rx#:[id number] Calcium Chloride Inj 1 GM In 110 / 110 D5W Inj 100 ML @ 110 mls/hr IV. SIG ONCE ONE Rx#:[id number] Magnesium Sulfate Inj 2 GM In 100 / 100 NS Inj 96 ML @ 50 mls/hr IV.SIG ONCE ONE Rx#:[id number] Vitamin K Inj 10 MG In D5W Inj 102 / 102 50 ML @ 102 mls/hr IV.SIG STAT STA Rx#:[id number] Vancomycin Inj 1,500 MG In NS 515 / 515 Inj 500 ML @ 250 mls/hr IV.SIG ONCE ONE Rx#:[id number] fentaNYL 10 mcg/mL Premix Drip 250 / 250 2,500 mcg In 250 ml @ 50 MCG/HR 5 mls/hr IV.SIG TITRATE PRN Rx #:[id number] Flagyl 500 MG Inj 100 ML @ 100 200 / 200 mls/hr IV.SIG Q8H [facility] Rx#: [id number] Output: Urine Amount (Catheter) 1000 / 1000 1800 / 1800 Indwelling Urethral Catheter 1000 / 1000 1800 / 1800 Other: Date of Last Bowel Movement 08/29/18 08/29/18 # Bowel Movements 0 Narrative: Physical examination GENERAL: Patient is a well-nourished, well-developed male, awake, follows some commands, on the vent, on CPAP, not in respiratory distress. SKIN: Warm and dry. No generalized rash, no ecchymoses and no evidence of embolic lesions. HEAD: Atraumatic. Normocephalic. No temporal wasting, or tenderness. EYES: [place] conjunctiva. No petechia or hemorrhage. Pupils equal, round and reactive to light. No scleral icterus. No injection or drainage. EARS, NOSE AND THROAT: Nose without bleeding or purulent nasal discharge. He is orally intubated. NECK: Trachea midline. Supple and not tender, no meningeal signs CARDIOVASCULAR: Regular rate and rhythm. No murmurs, rubs or gallops heard. ICD in L upper chest with healed incision, no redness or induration RESPIRATORY: Equal breath sounds bilaterally, with scattered rhonchi. ABDOMEN: Mildly distended abdomen, nontender, bowel sounds present and normoactive. No guarding. No rebound. No organomegaly. EXTREMITIES: No clubbing, cyanosis, or edema in BLE. Has edema both hands. No calf tenderness. NEUROLOGICAL: Opens eyes, follows some commands. No Babinski, no clonus. PSYCHIATRIC: Unable to fully assess LINE: No evidence of infection Results - Labs CBC & Chem 7: 09/03/18 05:55 09/03/18 05:55 Labs: Laboratory Results - last 24 hr 09/02/18 09/02/18 09/02/18 10:00 11:22 16:25 WBC RBC Hgb Hct MCV MCH MCHC RDW Plt Count MPV Prelim Diff (Auto) Neut % (Auto) Lymph % (Auto) [place] % (Auto) Eos % (Auto) Baso % (Auto) Neut # (Auto) Lymph # (Auto) [place] # (Auto) Eos # (Auto) Baso # (Auto) WBC Differential Seg Neuts % (Manual) Band Neuts % (Manual) Lymphocytes % (Manual) Monocytes % (Manual) Metamyelocytes % (Man) Abs Neuts (Manual) Nucleated RBCs/100 WBC Differential Comment Platelet Estimate Platelet Morphology Ovalocytes PT 63.6 H D INR 6.4 H* APTT Fibrinogen Puncture Site Art line Patient Temperature 98.6 O2 Saturation 96 ABG pH 7.47 H ABG pCO2 32 L ABG pO2 139 H ABG HCO3 23 ABG O2 Content 14.4 ABG Base Excess -0.7 ABG Methemoglobin 1.7 Parveen Test Present Hemoglobin 10.4 L Carboxyhemoglobin 0.9 O2 Delivery Device Ventilator Vent Setting Ac/14/550/+5 Inspired O2 40 Critical Value No Sodium Potassium Chloride Carbon Dioxide Anion Gap BUN Creatinine Estimated GFR POC Glucose 149 H Random Glucose Lactic Acid Calcium Prot Corrected Calcium Total Bilirubin AST ALT Alkaline Phosphatase Total Protein Albumin 09/02/18 09/02/18 09/02/18 16:25 16:25 17:43 WBC RBC Hgb Hct MCV MCH MCHC RDW Plt Count MPV Prelim Diff (Auto) Neut % (Auto) Lymph % (Auto) [place] % (Auto) Eos % (Auto) Baso % (Auto) Neut # (Auto) Lymph # (Auto) Tr[place]ble # (Auto) Eos # (Auto) Baso # (Auto) WBC Differential Seg Neuts % (Manual) Band Neuts % (Manual) Lymphocytes % (Manual) Monocytes % (Manual) Metamyelocytes % (Man) Abs Neuts (Manual) Nucleated RBCs/100 WBC Differential Comment Platelet Estimate Platelet Morphology Ovalocytes PT INR APTT Fibrinogen Puncture Site Patient Temperature O2 Saturation ABG pH ABG pCO2 ABG pO2 ABG HCO3 ABG O2 Content ABG Base Excess ABG Methemoglobin Parveen Test Hemoglobin Carboxyhemoglobin O2 Delivery Device Vent Setting Inspired O2 Critical Value Sodium 136 Potassium 3.7 Chloride 96 L Carbon Dioxide 27.6 Anion Gap 12 BUN 67 H Creatinine 3.48 H Estimated GFR 17 L POC Glucose 144 H Random Glucose 136 H Lactic Acid 3.8 H Calcium 7.4 L* Prot Corrected Calcium 8.5 Total Bilirubin 3.1 H AST 5193 H ALT 4466 H Alkaline Phosphatase 79 Total Protein 5.1 L Albumin 2.8 L 09/02/18 09/03/18 09/03/18 23:42 05:02 05:55 WBC 7.4 RBC 3.65 L Hgb 11.2 L Hct 33.1 L MCV 90.8 MCH 30.6 MCHC 33.7 RDW 14.8 Plt Count 167 MPV 8.7 Prelim Diff (Auto) Slide review pending Neut % (Auto) 91.5 H Lymph % (Auto) 4.9 L Trimble % (Auto) 3.4 Eos % (Auto) 0.0 Baso % (Auto) 0.2 Neut # (Auto) 6.8 Lymph # (Auto) 0.4 L Trimble # (Auto) 0.3 Eos # (Auto) 0.0 Baso # (Auto) 0.0 WBC Differential Manual diff final Seg Neuts % (Manual) 88 H Band Neuts % (Manual) 2 Lymphocytes % (Manual) 6 L Monocytes % (Manual) 2 Metamyelocytes % (Man) 2 H Abs Neuts (Manual) 6.8 Nucleated RBCs/100 WBC 6 H Differential Comment . Platelet Estimate Normal Platelet Morphology Normal Ovalocytes 1+ H PT INR APTT Fibrinogen Puncture Site Patient Temperature O2 Saturation ABG pH ABG pCO2 ABG pO2 ABG HCO3 ABG O2 Content ABG Base Excess ABG Methemoglobin Parveen Test Hemoglobin Carboxyhemoglobin O2 Delivery Device Vent Setting Inspired O2 Critical Value Sodium Potassium Chloride Carbon Dioxide Anion Gap BUN Creatinine Estimated GFR POC Glucose 146 H 176 H Random Glucose Lactic Acid Calcium Prot Corrected Calcium Total Bilirubin AST ALT Alkaline Phosphatase Total Protein Albumin 09/03/18 09/03/18 09/03/18 05:55 08:05 08:05 WBC RBC Hgb Hct MCV MCH MCHC RDW Plt Count MPV Prelim Diff (Auto) Neut % (Auto) Lymph % (Auto) [place] % (Auto) Eos % (Auto) Baso % (Auto) Neut # (Auto) Lymph # (Auto) Tr[place]ble # (Auto) Eos # (Auto) Baso # (Auto) WBC Differential Seg Neuts % (Manual) Band Neuts % (Manual) Lymphocytes % (Manual) Monocytes % (Manual) Metamyelocytes % (Man) Abs Neuts (Manual) Nucleated RBCs/100 WBC Differential Comment Platelet Estimate Platelet Morphology Ovalocytes PT 45.4 H D INR 4.5 APTT 45.9 H Fibrinogen Puncture Site Patient Temperature O2 Saturation ABG pH ABG pCO2 ABG pO2 ABG HCO3 ABG O2 Content ABG Base Excess ABG Methemoglobin Parveen Test Hemoglobin Carboxyhemoglobin O2 Delivery Device Vent Setting Inspired O2 Critical Value Sodium 139 Potassium 3.5 Chloride 97 L Carbon Dioxide 26.1 Anion Gap 16 H BUN 70 H Creatinine 3.52 H Estimated GFR POC Glucose Random Glucose 156 H Lactic Acid Calcium 7.7 L Prot Corrected Calcium Total Bilirubin 4.1 H AST 2611 H ALT 3836 H Alkaline Phosphatase 83 Total Protein 5.4 L Albumin 2.8 L 09/03/18 09/03/18 08:05 08:05 WBC RBC Hgb Hct MCV MCH MCHC RDW Plt Count MPV Prelim Diff (Auto) Neut % (Auto) Lymph % (Auto) [place] % (Auto) Eos % (Auto) Baso % (Auto) Neut # (Auto) Lymph # (Auto) [place] # (Auto) Eos # (Auto) Baso # (Auto) WBC Differential Seg Neuts % (Manual) Band Neuts % (Manual) Lymphocytes % (Manual) Monocytes % (Manual) Metamyelocytes % (Man) Abs Neuts (Manual) Nucleated RBCs/100 WBC Differential Comment Platelet Estimate Platelet Morphology Ovalocytes PT INR APTT Fibrinogen 185 L Puncture Site Patient Temperature O2 Saturation ABG pH ABG pCO2 ABG pO2 ABG HCO3 ABG O2 Content ABG Base Excess ABG Methemoglobin Parveen Test Hemoglobin Carboxyhemoglobin O2 Delivery Device Vent Setting Inspired O2 Critical Value Sodium Potassium Chloride Carbon Dioxide Anion Gap BUN Creatinine Estimated GFR POC Glucose Random Glucose Lactic Acid 3.4 H Calcium Prot Corrected Calcium Total Bilirubin AST ALT Alkaline Phosphatase Total Protein Albumin - Imaging Impressions Abdomen/Pelvis CT 09/01/18 00:00 CONCLUSION: 1. Trace ascites, nonspecific. Also mild body wall edema. No organized or drainable fluid. 2. Diverticulosis of the sigmoid colon. No diverticulitis or other acute inflammatory changes. 3. Atherosclerosis of the aorta. Chest CT 09/01/18 00:00 CONCLUSION: 1. Bilateral pneumonia, especially right upper lobe. 2. Small bilateral pleural effusions; dependent/compressive atelectasis of both lower lobes. 3. Panchamber enlargement of the heart. Head CT 09/01/18 00:00 CONCLUSION: 1. No acute intracranial abnormality demonstrated. 2. Atrophy and chronic periventricular white matter changes. Chest X-Ray 09/03/18 00:00 CONCLUSION: Slight improvement of right lung and left basilar density. Assessment and Plan - Plan Impression One (+) BC with Strep viridans Bilateral infiltrates, PNA +/- fluid, has improved Respiratory failure Atrial fib, cardioverted 08/22, in NSR Has AICD Renal insufficiency Recommendation Repeat BC done yesterday Limited echo, look at valves Follow C/S On vanco and Azactam Weaning per [facility] Monitor progress Will determine course of Rx once work-up and C/S completed I will follow along with you Thank you for this consultation D/W RN D/W Avelino Schilling ([facility])
--- NOTE | 2018-09-03 12:03 | P.PNNP ---
Subjective Interval history: He has very good urine output. Remains on the ventilator. Appears to follow some commands. Physical Exam Vital signs: Vital Signs 09/02/18 12:30 09/02/18 13:00 09/02/18 13:30 Temperature Pulse Rate 68 70 69 Respiratory Rate 14 14 16 Blood Pressure 106/59 L 102/59 L 103/57 L Pulse Oximetry 97 97 95 09/02/18 14:00 09/02/18 14:30 09/02/18 15:00 Temperature Pulse Rate 71 78 73 Respiratory Rate 32 H 17 17 Blood Pressure 97/57 L 106/63 109/61 Pulse Oximetry 87 L 98 97 09/02/18 15:30 09/02/18 16:00 09/02/18 16:30 Temperature 97.7 F Pulse Rate 74 72 72 Respiratory Rate 18 12 13 Blood Pressure 106/62 104/62 106/61 Pulse Oximetry 97 99 98 09/02/18 17:00 09/02/18 17:30 09/02/18 18:00 Temperature Pulse Rate 84 76 75 Respiratory Rate 19 14 14 Blood Pressure 103/68 105/61 107/60 Pulse Oximetry 100 99 99 09/02/18 18:30 09/02/18 19:00 09/02/18 19:30 Temperature Pulse Rate 80 74 73 Respiratory Rate 16 14 12 Blood Pressure 113/65 105/60 105/58 L Pulse Oximetry 99 98 98 09/02/18 20:00 09/02/18 20:21 09/02/18 21:00 Temperature 97.4 F L Pulse Rate 80 82 78 Respiratory Rate 16 18 16 Blood Pressure 114/67 Pulse Oximetry 99 100 97 09/02/18 22:00 09/02/18 23:00 09/03/18 00:00 Temperature 97.7 F Pulse Rate 81 79 80 Respiratory Rate 23 22 18 Blood Pressure Pulse Oximetry 99 97 99 09/03/18 01:00 09/03/18 01:04 09/03/18 02:00 Temperature Pulse Rate 76 80 80 Respiratory Rate 16 20 17 Blood Pressure Pulse Oximetry 100 100 09/03/18 03:00 09/03/18 04:00 09/03/18 04:02 Temperature 97.7 F Pulse Rate 77 75 75 Respiratory Rate 14 14 12 Blood Pressure 106/61 Pulse Oximetry 100 100 100 09/03/18 04:03 09/03/18 04:45 09/03/18 04:46 Temperature Pulse Rate 76 81 Respiratory Rate 25 H 18 19 Blood Pressure 106/61 Pulse Oximetry 99 99 09/03/18 05:00 09/03/18 06:00 09/03/18 07:00 Temperature Pulse Rate 82 85 80 Respiratory Rate 21 20 18 Blood Pressure 115/66 115/71 113/67 Pulse Oximetry 100 100 99 09/03/18 08:00 09/03/18 08:35 09/03/18 09:00 Temperature 99.5 F Pulse Rate 83 82 86 Respiratory Rate 19 17 16 Blood Pressure 115/65 124/73 Pulse Oximetry 100 100 99 09/03/18 10:00 Temperature Pulse Rate 88 Respiratory Rate 26 H Blood Pressure 106/73 Pulse Oximetry 97 Intake & Output 09/02/18 09/03/18 09/03/18 18:59 06:59 18:59 Intake Total 1762 / 1762 900 / 900 150 / 150 Output Total 1000 / 1000 1800 / 1800 Balance 762 / 762 -900 / -900 150 / 150 Weight 81.3 kg Intake: IV 1762 / 1762 900 / 900 150 / 150 Cordarone Inj 450 MG In D5W Inj 250 / 250 250 / 250 241 ML @ 1 MG/MIN 33.33 mls/hr IV.CONT TITRATE PRN Rx#: [id number] Sodium Bicarbonate 8.4% Inj 150 235 / 235 MEQ In Sterile Water for Inj 850 ML @ 150 mls/hr IV.CONT . Q6H40M [facility] Rx#:[id number] Flexbumin 25% Inj 50 ML @ 50 50 / 50 50 / 50 50 / 50 mls/hr IV.SIG Q12H [facility] Rx#: [id number] Azithromycin Inj 500 MG In NS 250 / 250 Inj 250 ML @ 250 mls/hr IV.SIG Q24H [facility] Rx#:[id number] Azactam Inj 2 GM In NS Inj 100 200 / 200 100 / 100 100 / 100 ML @ 200 mls/hr IV.SIG Q8H [facility] Rx#:[id number] Calcium Chloride Inj 1 GM In 110 / 110 D5W Inj 100 ML @ 110 mls/hr IV. SIG ONCE ONE Rx#:[id number] Magnesium Sulfate Inj 2 GM In 100 / 100 NS Inj 96 ML @ 50 mls/hr IV.SIG ONCE ONE Rx#:[id number] Vitamin K Inj 10 MG In D5W Inj 102 / 102 50 ML @ 102 mls/hr IV.SIG STAT [facility] Rx#:[id number] Vancomycin Inj 1,500 MG In NS 515 / 515 Inj 500 ML @ 250 mls/hr IV.SIG ONCE ONE Rx#:[id number] fentaNYL 10 mcg/mL Premix Drip 250 / 250 2,500 mcg In 250 ml @ 50 MCG/HR 5 mls/hr IV.SIG TITRATE PRN Rx #:[id number] Flagyl 500 MG Inj 100 ML @ 100 200 / 200 mls/hr IV.SIG Q8H [facility] Rx#: [id number] Output: Urine Amount (Catheter) 1000 / 1000 1800 / 1800 Indwelling Urethral Catheter 1000 / 1000 1800 / 1800 Other: Date of Last Bowel Movement 08/29/18 08/29/18 08/29/18 # Bowel Movements 0 Narrative: Physical examination GENERAL: Patient is a well-nourished, well-developed male, awake, follows some commands, on the vent, on CPAP, not in respiratory distress. SKIN: Warm and dry. No generalized rash, no ecchymoses and no evidence of embolic lesions. HEAD: Atraumatic. Normocephalic. No temporal wasting, or tenderness. EYES: [place] conjunctiva. No petechia or hemorrhage. Pupils equal, round and reactive to light. No scleral icterus. No injection or drainage. EARS, NOSE AND THROAT: Nose without bleeding or purulent nasal discharge. He is orally intubated. NECK: Trachea midline. Supple and not tender, no meningeal signs CARDIOVASCULAR: Remains in NSR. On Dobutamine. Also on Amiodarone. RESPIRATORY: Equal breath sounds bilaterally, with scattered rhonchi. ABDOMEN: Mildly distended abdomen, nontender, bowel sounds present and normoactive. No guarding. No rebound. No organomegaly. EXTREMITIES: Dependent edema. NEUROLOGICAL: Opens eyes, follows some commands. - Urinary Catheter Management Indwelling Urethral Catheter Cath placed during this visit: yes Reason for continuing: Hourly intake/output Insertion date: 08/31/18 Insertion time: 22:00 Assessment and Plan - Assessment (1) Acute kidney injury Code(s): N17.9 - Acute kidney failure, unspecified Status: Deleted Plan: Likely due to ATN due to hypoperfusion, possible sepsis. Continue Bumex. There is no immediate need to initiate dialysis today. His urine output has improved. (2) Cardiomyopathy Code(s): I42.9 - Cardiomyopathy, unspecified Status: Chronic Plan: Acute on chronic systolic heart failure. Cardiology following. (3) Atrial fibrillation with rapid ventricular response Code(s): I48.91 - Unspecified atrial fibrillation Status: Acute Plan: s/p cardioversion. On Amiodarone. (4) Transaminitis Code(s): R74.0 - Nonspecific elevation of levels of transaminase and lactic acid dehydrogenase [LDH] Status: Deleted Plan: Due to ischemic hepatitis. Improving.
--- NOTE | 2018-09-03 12:25 | P.PNCC ---
Subjective Subjective Remarks/Hospital Course: 08/31: Patient is 83-year-old male with a history of A. fib on Xarelto, cardiomyopathy with ejection fraction 17%, moderate MR, moderate AI, hypertension, hyperlipidemia, ventricular tachycardia history with, ICD, COPD who was admitted to the [facility] service on 08/28/2018 for worsening shortness of breath. He was admitted with a diagnosis of COPD, atrial fibrillation with RVR and cardiology was consulted. I am unable to locate echo report but according to [facility] admit note Echo 10/2017, EF=17%, LVH, biatrial enlargement,, Mod MR, Mod AI, Mod TR, aortic cusp thickening. Patient has chronic A. fib for which he takes Xarelto, metoprolol, and amiodarone. This was continued and patient was also placed on Cardizem infusion for rate control. Plan was for EMILEE guided cardioversion tomorrow Patient was noted to be increasingly short of breath over the day. He received some Ativan around 10 AM today for presumed anxiety. According to bedside RN patient had labored breathing since the beginning of her shift at around 7 and even prior. Patient became increasingly lethargic with worsening hypoxia shortness of breath. Stat ABG showed 7.07/29/58 with oxygen saturation of 78 and base excess -20.5. A Halicat was called at about 8 pm and patient was moved to the [facility]. I immediately evaluated the patient. Patient was barely responsive tachypneic. Blood pressure was not recordable but pulse was palpable. I ordered stat transfusion of 1 L normal saline bolus, 2 Amps of bicarb to at least partially corrective acidosis prior to intubation and also started Levophed infusion peripherally. After systolic blood pressure was in 60s I proceeded with endotracheal intubation due to hypoxia and lack of airway protection. Patient was intubated and placed on mechanical ventilation. Patient remained in atrial fibrillation RVR, the shock appears to be severe cardiogenic shock worsened by severe acidosis. Levophed was rapidly increased to 40 mcg/min, additional pressors added with Tien-Synephrine and dopamine. I emergently placed a right subclavian central line and also right femoral artery line. Once arterial line is placed and flow Trac monitoring is initiated. I have given digoxin 0.5 mg IV x1 for rate control, start amiodarone bolus and infusion for rate control. Start dobutamine infusion as the patient has an EF of 17%. Duque cultures will be sent a Escamilla catheter will be inserted as the patient is almost anuric. Broad-spectrum antibiotics with Azactam Flagyl and vancomycin. Chest x-ray shows persistent left lower lobe and new right lower lobe infiltrates. This appears to be a combination of severe cardiogenic and septic shock and prognosis is guarded at this time 09/01: Remains orally intubated on mechanical ventilation. This morning at the time of my evaluation patient was easily arousable following commands. He was on phenylephrine/Levophed/dobutamine for pressor support/inotropic support as well as amiodarone gtt. Over the course of the day his phenylephrine was titrated off and Levophed was decreased to 5 mics per minute after starting vasopressin gtt 0.04 units/min. After discussion with Dr. felix proceeded with electrical cardioversion to convert him out of his A. fib. Patient was successfully cardioverted to sinus rhythm. He has been essentially anuric. 09/02: Sedated, arousable, orally intubated on mechanical ventilation. On dobutamine 2.5 mics per KG per minute and amiodarone 1 mg/min. Bicarb drip discontinued. Lactic acid improving. INR elevated this morning for which vitamin K 10 mg IV given. No evidence of active bleeding. 11/03: Arousable off sedation, orally intubated on mechanical ventilation at the time of my evaluation this morning. On dobutamine 2.5 mics per KG per minute and amiodarone gtt. Fentanyl stopped. Objective Vital Signs / I&O: Vital Signs 09/02/18 12:30 09/02/18 13:00 09/02/18 13:30 Temperature Pulse Rate 68 70 69 Respiratory Rate 14 14 16 Blood Pressure 106/59 L 102/59 L 103/57 L Pulse Oximetry 97 97 95 09/02/18 14:00 09/02/18 14:30 09/02/18 15:00 Temperature Pulse Rate 71 78 73 Respiratory Rate 32 H 17 17 Blood Pressure 97/57 L 106/63 109/61 Pulse Oximetry 87 L 98 97 09/02/18 15:30 09/02/18 16:00 09/02/18 16:30 Temperature 97.7 F Pulse Rate 74 72 72 Respiratory Rate 18 12 13 Blood Pressure 106/62 104/62 106/61 Pulse Oximetry 97 99 98 10/31/18 17:00 09/02/18 17:30 09/02/18 18:00 Temperature Pulse Rate 84 76 75 Respiratory Rate 19 14 14 Blood Pressure 103/68 105/61 107/60 Pulse Oximetry 100 99 99 09/02/18 18:30 09/02/18 19:00 09/02/18 19:30 Temperature Pulse Rate 80 74 73 Respiratory Rate 16 14 12 Blood Pressure 113/65 105/60 105/58 L Pulse Oximetry 99 98 98 09/02/18 20:00 09/02/18 20:21 09/02/18 21:00 Temperature 97.4 F L Pulse Rate 80 82 78 Respiratory Rate 16 18 16 Blood Pressure 114/67 Pulse Oximetry 99 100 97 09/02/18 22:00 09/02/18 23:00 09/03/18 00:00 Temperature 97.7 F Pulse Rate 81 79 80 Respiratory Rate 23 22 18 Blood Pressure Pulse Oximetry 99 97 99 09/03/18 01:00 09/03/18 01:04 09/03/18 02:00 Temperature Pulse Rate 76 80 80 Respiratory Rate 16 20 17 Blood Pressure Pulse Oximetry 100 100 09/03/18 03:00 09/03/18 04:00 09/03/18 04:02 Temperature 97.7 F Pulse Rate 77 75 75 Respiratory Rate 14 14 12 Blood Pressure 106/61 Pulse Oximetry 100 100 100 09/03/18 04:03 09/03/18 04:45 09/03/18 04:46 Temperature Pulse Rate 76 81 Respiratory Rate 25 H 18 19 Blood Pressure 106/61 Pulse Oximetry 99 99 09/03/18 05:00 09/03/18 06:00 09/03/18 07:00 Temperature Pulse Rate 82 85 80 Respiratory Rate 21 20 18 Blood Pressure 115/66 115/71 113/67 Pulse Oximetry 100 100 99 09/03/18 08:00 09/03/18 08:35 09/03/18 09:00 Temperature 99.5 F Pulse Rate 83 82 86 Respiratory Rate 19 17 16 Blood Pressure 115/65 124/73 Pulse Oximetry 100 100 99 09/03/18 10:00 Temperature Pulse Rate 88 Respiratory Rate 26 H Blood Pressure 106/73 Pulse Oximetry 97 Intake & Output 09/02/18 09/03/18 09/03/18 18:59 06:59 18:59 Intake Total 1762 / 1762 900 / 900 150 / 150 Output Total 1000 / 1000 1800 / 1800 Balance 762 / 762 -900 / -900 150 / 150 Weight 81.3 kg Intake: IV 1762 / 1762 900 / 900 150 / 150 Cordarone Inj 450 MG In D5W Inj 250 / 250 250 / 250 241 ML @ 1 MG/MIN 33.33 mls/hr IV.CONT TITRATE PRN Rx#: [id number] Sodium Bicarbonate 8.4% Inj 150 235 / 235 MEQ In Sterile Water for Inj 850 ML @ 150 mls/hr IV.CONT . Q6H40M [facility] Rx#:[id number] Flexbumin 25% Inj 50 ML @ 50 50 / 50 50 / 50 50 / 50 mls/hr IV.SIG Q12H [facility] Rx#: [id number] Azithromycin Inj 500 MG In NS 250 / 250 Inj 250 ML @ 250 mls/hr IV.SIG Q24H [facility] Rx#:[id number] Azactam Inj 2 GM In NS Inj 100 200 / 200 100 / 100 100 / 100 ML @ 200 mls/hr IV.SIG Q8H [facility] Rx#:[id number] Calcium Chloride Inj 1 GM In 110 / 110 D5W Inj 100 ML @ 110 mls/hr IV. SIG ONCE ONE Rx#:[id number] Magnesium Sulfate Inj 2 GM In 100 / 100 NS Inj 96 ML @ 50 mls/hr IV.SIG ONCE ONE Rx#:[id number] Vitamin K Inj 10 MG In D5W Inj 102 / 102 50 ML @ 102 mls/hr IV.SIG STAT STA Rx#:[id number] Vancomycin Inj 1,500 MG In NS 515 / 515 Inj 500 ML @ 250 mls/hr IV.SIG ONCE ONE Rx#:[id number] fentaNYL 10 mcg/mL Premix Drip 250 / 250 2,500 mcg In 250 ml @ 50 MCG/HR 5 mls/hr IV.SIG TITRATE PRN Rx #:[id number] Flagyl 500 MG Inj 100 ML @ 100 200 / 200 mls/hr IV.SIG Q8H [facility] Rx#: [id number] Output: Urine Amount (Catheter) 1000 / 1000 1800 / 1800 Indwelling Urethral Catheter 1000 / 1000 1800 / 1800 Other: Date of Last Bowel Movement 08/29/18 08/29/18 08/29/18 # Bowel Movements 0 Result Diagrams: 09/03/18 05:55 09/03/18 05:55 Imaging: Impressions Chest X-Ray 09/02/18 07:20 CONCLUSION: Increasing parenchymal changes on the right. Chest X-Ray 09/03/18 00:00 CONCLUSION: Slight improvement of right lung and left basilar density. Objective Remarks: HEENT/ Neuro: Sedated, orally intubated, Pallor present, no icterus, tongue/ mucosa moist Neck: No JVD Chest/Pulm: on mech vent, good air entry bilaterally, bibasilar crackles, no wheezing CVS: S1-S2 regular(after cardioversion), no murmur GI/abdomen: soft, distended, nontender, bowel sounds sluggish Extremities: warm bilaterally, trace edema Assessment and Plan - Assessment and Plan Plan: NEURO: Toxic metabolic encephalopathy -Arouses easily and follows commands. Fentanyl stopped this morning for planned extubation -CT head negative for bleed on 08/31 RESP: Acute hypoxemic respiratory failure Bibasilar pneumonia COPD -Emergently intubated for severe respiratory distress hypoxia and inability to protect airway -PRVC/AC, Ventilator bundle -Tolerated CPAP trial and ordered extubation earlier -DuoNeb every 4 hours scheduled and as needed -Broad-spectrum antibiotics as below -CT chest suggestive of pneumonia CV: Severe cardiogenic shock Severe metabolic acidosis Severe lactic acidosis 15.7 Atrial fibrillation with rapid ventricular response s/p cardioversion History of CABG Ischemic cardiomyopathy with ejection fraction 17% Moderate MR, moderate AI -Aggressively fluid resuscitated with crystalloids, IV albumin due to severe hypotension on 08/31 -Currently on dobutamine 2.5mcg/kg/min, off phenylephrine/Levophed. Vasopressin titrated off. - Amiodarone gtt 1mg/min s/p electrical cardioversion with 100 joules X2 on 09/01, converted to sinus rhythm -Hold home medications p.o. amiodarone, p.o. metoprolol -IV digoxin 0.5 mg x1 on 08/31. -Lactic acid came back at 15.7 on 08/31, serial lactic acid decreasing -Stress dose steroids GI: -Advance p.o. diet as tolerated, IV famotidine -CT abdomen pelvis with some ascites : AK I/CKD -Monitor renal function closely. Escamilla catheter for strict intake output, hourly -Bicarb drip stopped as metabolic acidosis improved -Nephrology consulted and following. Continue Bumex 1 mg IV every 12 hourly. Patient has started making urine. ID: Septic shock Probable pneumonia -Antibiotics with IV Azactam, Flagyl, azithromycin, single dose of vancomycin -Blood urine and sputum cultures Blood cultures from 08/31 1 out of 2 sets growing strep viridans. ID consult requested. Repeat blood cultures on 09/03 -CT chest abdomen pelvis as above HEME: -Monitor CBC, coags -Hold Xarelto due to extremely elevated INR -Vitamin K 10 mg IV x2 on 09/02 ENDO: Hypoglycemia most likely from sepsis Hypothyroidism Mild hyperkalemia Hypocalcemia -Electrolyte replacement per protocol -Hypoglycemia protocol -Replace calcium PROPH: -Bilateral lower extremity SCDs. famotidine. Xarelto to be held. INR remains elevated. LINES: -Right subclavian central line, right femoral arterial line placed 08/31/2018. Discontinue rt femoral A line 09/03 Palliative care consulted and following to assist with deciding goals of therapy. Condition critical Time spent on critical care excluding procedures 30 minutes
--- NOTE | 2018-09-03 14:13 | P.PNCA ---
Subjective Interval history: Patient is intubated but does follow commands. He currently is on CPAP trial pending extubation. Medications and Allergies Allergies Allergy/AdvReac Type Severity Reaction Status Date / Time prednisone Allergy Severe Weight loss Verified 08/28/18 14:33 penicillin G Allergy Intermediate Hives Verified 08/28/18 14:33 Sulfa (Sulfonamide Allergy Intermediate Hives Verified 08/28/18 14:33 Antibiotics) Home Medications Medication Instructions Recorded Confirmed Type fenofibrate 160 mg PO DAILY 07/22/18 08/28/18 History latanoprost 1 drp OPHTHALMIC (EYE) QPM 07/22/18 08/28/18 History levothyroxine [Synthroid] 75 mcg PO DAILY 07/22/18 08/28/18 History pitavastatin calcium [Livalo] 2 mg PO 3XW 07/22/18 08/28/18 History metoprolol tartrate 25 mg PO BID 08/28/18 08/28/18 History rivaroxaban [Xarelto] 15 mg PO QPM 08/28/18 08/28/18 History torsemide 20 mg PO EVERY OTHER DAY 08/28/18 08/28/18 History amiodarone 200 mg PO 08/29/18 History Active Medications: Active Medications Albuterol (Duoneb Neb (Prn)) 1 ampul NEB Q2HR NEB PRN PRN Reason: SHORTNESS OF BREATH Albuterol (Duoneb Neb (Jaspal)) 1 ampul NEB Q4HR NEB [facility] Last Admin: 09/03/18 11:38 Dose: 1 ampul Amiodarone HCl (Cordarone) 200 mg PO BID [facility] Last Admin: 09/01/18 00:32 Dose: Not Given Bumetanide (Bumex Inj) 1 mg IV.PUSH Q12H [facility] Last Admin: 09/03/18 08:23 Dose: 1 mg Chlorhexidine Gluconate (Peridex 0.12% Oral Kit) 15 ml OROPHARYNG BID@0800, 2000 [facility] Last Admin: 09/03/18 08:00 Dose: 15 ml Chlorhexidine Gluconate (Chlorhexidine 2% Cloth) 3 pack TOPICAL DAILY@0400 [facility] Stop: 09/06/18 03:59 Last Admin: 09/03/18 03:32 Dose: 3 pack Chlorhexidine Gluconate (Chlorhexidine 2% Cloth) 3 pack TOPICAL DAILY@0400 PRN PRN Reason: Extra cloth needed Stop: 09/06/18 03:59 Dextrose (D50w Vial) 50 ml IV.PUSH UNSCH PRN PRN Reason: PER HYPOGLYCEMIA PROTOCOL Famotidine (Pepcid Pf Inj) 10 mg IV.PUSH Q12HR [facility] Last Admin: 09/03/18 08:23 Dose: 10 mg Glucagon (Glucagon Inj) 1 mg OTHER PRN PRN PRN Reason: for Hypoglycemia Protocol Hydrocortisone Sodium Succinate (Solucortef Inj) 100 mg IV.PUSH Q8HR [facility] Last Admin: 09/03/18 13:12 Dose: 100 mg Diltiazem HCl 125 mg/ Sodium (Chloride) 125 mls @ 5 mls/hr IV.CONT TITRATE PRN ; Protocol PRN Reason: Per Protocol Last Titration: 08/29/18 13:59 Dose: Infused Albumin Human (Flexbumin 25% Inj) 50 mls @ 50 mls/hr IV.SIG Q12H [facility] Last Infusion: 09/03/18 11:57 Dose: Infused Aztreonam 2 gm/ Sodium (Chloride) 100 mls @ 200 mls/hr IV.SIG Q8H [facility] Last Admin: 09/03/18 13:12 Dose: 200 mls/hr Amiodarone HCl 450 mg/ (Dextrose) 250 mls @ 33.33 mls/hr IV.CONT TITRATE PRN; Protocol PRN Reason: Per Protocol Last Admin: 09/03/18 02:16 Dose: 1 mg/min, 33.33 mls/hr Dopamine HCl 800 mg/ Sodium (Chloride) 520 mls @ 8.07 mls/hr IV.CONT TITRATE PRN; Protocol PRN Reason: See Protocol Last Titration: 08/31/18 23:00 Dose: Infused Phenylephrine HCl 80 mg/ (Sodium Chloride) 500 mls @ 15 mls/hr IV.CONT TITRATE PRN; Protocol PRN Reason: See prorocol Last Titration: 09/01/18 14:35 Dose: Infused Norepinephrine Bitartrate 4 mg (/ Sodium Chloride) 250 mls @ 7.5 mls/hr IV.SIG TITRATE PRN; Protocol PRN Reason: Per Protocol Last Titration: 09/02/18 03:13 Dose: 0 mcg/min, 0 mls/hr Dobutamine HCl 500 mg/ (Dextrose) 250 mls @ 5.17 mls/hr IV.CONT .Q24H [facility] Last Admin: 09/03/18 04:51 Dose: Not Given Sodium Chloride (Ns Inj) 1,000 mls @ 0 mls/hr IV.SIG BOLUS JASPAL Azithromycin 500 mg/ Sodium (Chloride) 250 mls @ 250 mls/hr IV.SIG Q24H [facility] Last Infusion: 09/03/18 00:45 Dose: Infused Fentanyl (Fentanyl 10 Mcg/Ml Premix Drip) 2,500 mcg in 250 mls @ 5 mls/hr IV.SIG TITRATE PRN; Protocol PRN Reason: Per Protocol Last Admin: 09/03/18 03:59 Dose: 100 mcg/hr, 10 mls/hr Vasopressin 40 unit/ Dextrose 100 mls @ 6 mls/hr IV.CONT CONT [facility]; Protocol Last Infusion: 09/02/18 08:15 Dose: 0 units/min, 0 mls/hr Insulin Human Regular (Novolin R Correctional Sugar Inj) 0 units SQ Q6HR [facility]; Protocol Last Admin: 09/03/18 12:33 Dose: Not Given Latanoprost (Xalatan 0.005% Opth Drops) 1 drop EACH EYE QPM [facility] Last Admin: 09/02/18 18:09 Dose: 1 drop Levothyroxine Sodium (Synthroid) 75 mcg PO DAILY@0600 [facility] Last Admin: 09/03/18 05:53 Dose: Not Given Metoprolol Tartrate (Lopressor) 25 mg PO BID [facility] Last Admin: 09/01/18 00:33 Dose: Not Given Miscellaneous Medication () 1 each OROPHARYNG 0000,0400,1200,1600 [facility] Last Admin: 09/03/18 11:57 Dose: Not Given Morphine Sulfate (Morphine Inj) 4 mg IV.PUSH Q2H PRN PRN Reason: Pain6-10 Last Admin: 09/01/18 08:59 Dose: 4 mg Pharmacy Profile Note (Vancomycin Consult Pharmacy) 1 each OTHER UNSCH PRN PRN Reason: Pharmacy to dose Rivaroxaban (Xarelto) 15 mg PO QPM [facility] Last Admin: 08/31/18 17:44 Dose: 15 mg Sodium Chloride (Ns Flush) 2 ml IV.FLUSH BID [facility] Last Admin: 09/03/18 08:24 Dose: 2 ml Sodium Chloride (Ns Flush) 2 ml IV.FLUSH PRN PRN PRN Reason: FLUSH AFTER USING IV ACCESS Terbutaline Sulfate (Brethine Inj) 1 mg SQ UNSCH PRN PRN Reason: For Extravasation Physical Exam Vital signs: Vital Signs 09/02/18 14:30 09/02/18 15:00 09/02/18 15:30 Temperature Pulse Rate 78 73 74 Respiratory Rate 17 17 18 Blood Pressure 106/63 109/61 106/62 Pulse Oximetry 98 97 97 09/02/18 16:00 09/02/18 16:30 09/02/18 17:00 Temperature 97.7 F Pulse Rate 72 72 84 Respiratory Rate 12 13 19 Blood Pressure 104/62 106/61 103/68 Pulse Oximetry 99 98 100 09/02/18 17:30 09/02/18 18:00 09/02/18 18:30 Temperature Pulse Rate 76 75 80 Respiratory Rate 14 14 16 Blood Pressure 105/61 107/60 113/65 Pulse Oximetry 99 99 99 09/02/18 19:00 09/02/18 19:30 09/02/18 20:00 Temperature 97.4 F L Pulse Rate 74 73 80 Respiratory Rate 14 12 16 Blood Pressure 105/60 105/58 L 114/67 Pulse Oximetry 98 98 99 09/02/18 20:21 09/02/18 21:00 09/02/18 22:00 Temperature Pulse Rate 82 78 81 Respiratory Rate 18 16 23 Blood Pressure Pulse Oximetry 100 97 99 09/02/18 23:00 09/03/18 00:00 09/03/18 01:00 Temperature 97.7 F Pulse Rate 79 80 76 Respiratory Rate 22 18 16 Blood Pressure Pulse Oximetry 97 99 100 09/03/18 01:04 09/03/18 02:00 09/03/18 03:00 Temperature Pulse Rate 80 80 77 Respiratory Rate 20 17 14 Blood Pressure Pulse Oximetry 100 100 09/03/18 04:00 09/03/18 04:02 09/03/18 04:03 Temperature 97.7 F Pulse Rate 75 75 76 Respiratory Rate 14 12 25 H Blood Pressure 106/61 106/61 Pulse Oximetry 100 100 99 09/03/18 04:45 09/03/18 04:46 09/03/18 05:00 Temperature Pulse Rate 81 82 Respiratory Rate 18 19 21 Blood Pressure 115/66 Pulse Oximetry 99 100 09/03/18 06:00 09/03/18 07:00 09/03/18 08:00 Temperature Pulse Rate 85 80 83 Respiratory Rate 20 18 19 Blood Pressure 115/71 113/67 115/65 Pulse Oximetry 100 99 100 09/03/18 08:35 09/03/18 09:00 09/03/18 10:00 Temperature 99.5 F Pulse Rate 82 86 88 Respiratory Rate 17 16 26 H Blood Pressure 124/73 106/73 Pulse Oximetry 100 99 97 Intake & Output 09/02/18 09/03/18 09/03/18 18:59 06:59 18:59 Intake Total 1762 / 1762 900 / 900 150 / 150 Output Total 1000 / 1000 1800 / 1800 Balance 762 / 762 -900 / -900 150 / 150 Weight 81.3 kg Intake: IV 1762 / 1762 900 / 900 150 / 150 Cordarone Inj 450 MG In D5W Inj 250 / 250 250 / 250 241 ML @ 1 MG/MIN 33.33 mls/hr IV.CONT TITRATE PRN Rx#: [id number] Sodium Bicarbonate 8.4% Inj 150 235 / 235 MEQ In Sterile Water for Inj 850 ML @ 150 mls/hr IV.CONT . Q6H40M JASPAL Rx#:[id number] Flexbumin 25% Inj 50 ML @ 50 50 / 50 50 / 50 50 / 50 mls/hr IV.SIG Q12H JASPAL Rx#: [id number] Azithromycin Inj 500 MG In NS 250 / 250 Inj 250 ML @ 250 mls/hr IV.SIG Q24H JASPAL Rx#:[id number] Azactam Inj 2 GM In NS Inj 100 200 / 200 100 / 100 100 / 100 ML @ 200 mls/hr IV.SIG Q8H JASPAL Rx#:[id number] Calcium Chloride Inj 1 GM In 110 / 110 D5W Inj 100 ML @ 110 mls/hr IV. SIG ONCE ONE Rx#:[id number] Magnesium Sulfate Inj 2 GM In 100 / 100 NS Inj 96 ML @ 50 mls/hr IV.SIG ONCE ONE Rx#:[id number] Vitamin K Inj 10 MG In D5W Inj 102 / 102 50 ML @ 102 mls/hr IV.SIG STAT STA Rx#:[id number] Vancomycin Inj 1,500 MG In NS 515 / 515 Inj 500 ML @ 250 mls/hr IV.SIG ONCE ONE Rx#:[id number] fentaNYL 10 mcg/mL Premix Drip 250 / 250 2,500 mcg In 250 ml @ 50 MCG/HR 5 mls/hr IV.SIG TITRATE PRN Rx #:[id number] Flagyl 500 MG Inj 100 ML @ 100 200 / 200 mls/hr IV.SIG Q8H JASPAL Rx#: [id number] Output: Urine Amount (Catheter) 1000 / 1000 1800 / 1800 Indwelling Urethral Catheter 1000 / 1000 1800 / 1800 Other: Date of Last Bowel Movement 08/29/18 08/29/18 08/29/18 # Bowel Movements 0 - Constitutional no acute distress - Routine HEENT Exam Head: Present: normocephalic Eye: Present: PERRL ENT: Present: mucous membranes moist - Routine Neck Exam Present: full ROM - Routine Respiratory Exam Present: patient mechanically ventilated, crackles Comments: Fine crackles noted bilaterally lower lobes - Routine Cardiovascular Exam Present: S1, S2 - Routine Abdominal Exam Present: normoactive bowel sounds - Routine Extremities Exam Present: full ROM, pulses intact, normal capillary refill. Absent: cyanosis, clubbing, edema - Routine Skin Exam Present: intact - Detailed Neurological Exam: Coma Scale Eye Opening: To sound Verbal Response: None Motor Response: Obey commands Ruth Coma Scale Total: 10 - Routine Psychiatric Exam Present: unable to assess - Urinary Catheter Management Indwelling Urethral Catheter Cath placed during this visit: yes Reason for continuing: Hourly intake/output Insertion date: 08/31/18 Insertion time: 22:00 Results 09/03/18 05:55 09/03/18 05:55 Cardiac Enzymes 09/01/18 09/02/18 09/02/18 Range/Units 17:20 07:30 16:25 AST 54713 H 8258 H 5193 H (15-37) U/L Troponin I 1.62 H* (0.02-0.05) ng/mL 09/03/18 Range/Units 05:55 AST 2611 H (15-37) U/L Troponin I (0.02-0.05) ng/mL Coagulation 09/01/18 09/02/18 09/02/18 Range/Units 17:20 07:30 16:25 PT 86.7 H D 89.3 H 63.6 H D (9.8-11.6) sec APTT (24.3-30.1) sec 09/03/18 09/03/18 Range/Units 08:05 08:05 PT 45.4 H D (9.8-11.6) sec APTT 45.9 H (24.3-30.1) sec CBC 09/02/18 09/03/18 Range/Units 07:30 05:55 WBC 9.3 7.4 (4.0-11.0) th/mm3 RBC 3.45 L 3.65 L (4.50-5.90) mil/mm3 Hgb 10.6 L 11.2 L (13.0-17.0) gm/dL Hct 31.9 L 33.1 L (39.0-51.0) % Plt Count 172 D 167 (150-450) th/mm3 Neut # (Auto) 8.4 H 6.8 (1.8-7.7) th/mm3 Lymph # (Auto) 0.6 L 0.4 L (1.0-4.8) th/mm3 [place] # (Auto) 0.3 0.3 (0.0-0.9) th/mm3 Eos # (Auto) 0.0 0.0 (0.0-0.4) th/mm3 Baso # (Auto) 0.0 0.0 (0.0-0.2) th/mm3 Comprehensive Metabolic Panel 09/01/18 09/02/18 09/02/18 Range/Units 17:20 07:30 16:25 Sodium 137 137 136 (136-145) meq/L Potassium 4.1 3.9 3.7 (3.5-5.1) meq/L Chloride 98 96 L 96 L (98-107) meq/L Carbon Dioxide 21.1 28.5 27.6 (21.0-32.0) meq/L BUN 51 H 65 H 67 H (7-18) mg/dL Creatinine 3.28 H 3.52 H 3.48 H (0.60-1.30) mg/dL Calcium 6.8 L* 7.0 L* 7.4 L* (8.5-10.1) mg/dL AST 72238 H 8258 H 5193 H (15-37) U/L ALT 5779 H 5179 H 4466 H (12-78) U/L Alkaline Phosphatase 73 78 79 (45-117) U/L Total Protein 5.2 L 5.2 L 5.1 L (6.4-8.2) g/dL Albumin 2.7 L 2.7 L 2.8 L (3.4-5.0) g/dL 09/03/18 Range/Units 05:55 Sodium 139 (136-145) meq/L Potassium 3.5 (3.5-5.1) meq/L Chloride 97 L (98-107) meq/L Carbon Dioxide 26.1 (21.0-32.0) meq/L BUN 70 H (7-18) mg/dL Creatinine 3.52 H (0.60-1.30) mg/dL Calcium 7.7 L (8.5-10.1) mg/dL AST 2611 H (15-37) U/L ALT 3836 H (12-78) U/L Alkaline Phosphatase 83 (45-117) U/L Total Protein 5.4 L (6.4-8.2) g/dL Albumin 2.8 L (3.4-5.0) g/dL Intake and Output 09/02/18 09/03/18 09/03/18 22:59 06:59 14:59 Intake Total 551 / 551 500 / 500 150 / 150 Output Total 1000 / 1000 1800 / 1800 Balance -449 / -449 -1300 / -1300 150 / 150 Intake: IV 551 / 551 500 / 500 150 / 150 Cordarone Inj 450 MG In D5W Inj 250 / 250 241 ML @ 1 MG/MIN 33.33 mls/hr IV.CONT TITRATE PRN Rx#: [id number] Flexbumin 25% Inj 50 ML @ 50 50 / 50 50 / 50 mls/hr IV.SIG Q12H JASPAL Rx#: [id number] Azithromycin Inj 500 MG In NS 250 / 250 Inj 250 ML @ 250 mls/hr IV.SIG Q24H JASPAL Rx#:[id number] Azactam Inj 2 GM In NS Inj 100 100 / 100 100 / 100 ML @ 200 mls/hr IV.SIG Q8H JASPAL Rx#:[id number] Vitamin K Inj 10 MG In D5W Inj 51 / 51 50 ML @ 102 mls/hr IV.SIG STAT STA Rx#:[id number] fentaNYL 10 mcg/mL Premix Drip 250 / 250 2,500 mcg In 250 ml @ 50 MCG/HR 5 mls/hr IV.SIG TITRATE PRN Rx #:[id number] Flagyl 500 MG Inj 100 ML @ 100 100 / 100 mls/hr IV.SIG Q8H JASPAL Rx#: [id number] Output: Urine Amount (Catheter) 1000 / 1000 1800 / 1800 Indwelling Urethral Catheter 1000 / 1000 1800 / 1800 Other: Date of Last Bowel Movement 08/29/18 08/29/18 08/29/18 # Bowel Movements 0 Weight 81.3 kg - Imaging and Cardiology Imaging: Impressions Chest X-Ray 09/02/18 07:20 CONCLUSION: Increasing parenchymal changes on the right. Chest X-Ray 09/03/18 00:00 CONCLUSION: Slight improvement of right lung and left basilar density. Assessment and Plan - Assessment (1) Respiratory failure Code(s): J96.90 - Respiratory failure, unspecified, unspecified whether with hypoxia or hypercapnia Status: Acute (2) Cardiomyopathy Code(s): I42.9 - Cardiomyopathy, unspecified Status: Chronic (3) Atrial fibrillation Code(s): I48.91 - Unspecified atrial fibrillation Status: Chronic (4) V-tach Code(s): I47.2 - Ventricular tachycardia Status: Chronic (5) CAD (coronary artery disease) of artery bypass graft Code(s): I25.810 - Atherosclerosis of coronary artery bypass graft(s) without angina pectoris Status: Chronic (6) Nutrition, metabolism, and development symptoms Code(s): R63.8 - Other symptoms and signs concerning food and fluid intake Status: Acute (7) Hypothyroidism Code(s): E03.9 - Hypothyroidism, unspecified Status: Chronic (8) Atrial fibrillation with rapid ventricular response Code(s): I48.91 - Unspecified atrial fibrillation Status: Acute - Plan Patient remains in sinus rhythm at this time, continue amiodarone drip. Patient remains intubated, CPAP trial in progress. Patient remains stable from a cardiac standpoint, we will continue current treatment plan. Palliative care evaluation in progress. We will continue to follow patient during hospitalization. Patient seen and evaluated by Dr. Juárez who participated in care, management and decision making. - Attending Attestation Patient seen and examined. I reviewed and agree with the evaluation and plan as presented. Continue ICU care. Wean vent as tolerated. Continue amio for SR maintenance. Wean off dobutamine as tolerated.
--- NOTE | 2018-09-03 17:32 | P.PNPAL ---
Reason for Visit Reason for visit: a. To assist with evaluation and management of symptoms including: pain, dyspnea. b. To assist medical decision maker(s) with: better understanding of current medical conditions; weighing benefits/burdens of medical treatment options; making medical treatment decisions. Subjective Subjective/Interval History: Patient seen and examined in ICU. and daughter (Winnie here from [place]) at bedside. Patient was medically extubated prior to my visit. He awakens easily, still lethargic. Answers some questions. He is confused. Some of what he says makes no sense. On dobutamine. Lactic acid 3.4. Creatinine remains elevated. INR 4.5. T. Bilirubin remains elevated at 4.1. AST and ALT decreasing. Spoke with at bedside, she desires continued aggressive care including reintubation if needed. Advance Directives Living Will: Never completed Health Care Surrogate: Never completed Durable Power of Fund Accountant: Never completed Health Care Surrogate Name and Number: Health care proxy, : Jovita Ravi : [phone] Significant change in goals:: FULL CODE, goals remain aggressive including reintubation if needed. Objective Vital Signs: Vital Signs 09/02/18 17:30 09/02/18 18:00 09/02/18 18:30 Temperature Pulse Rate 76 75 80 Respiratory Rate 14 14 16 Blood Pressure 105/61 107/60 113/65 Pulse Oximetry 99 99 99 09/02/18 19:00 09/02/18 19:30 09/02/18 20:00 Temperature 97.4 F L Pulse Rate 74 73 80 Respiratory Rate 14 12 16 Blood Pressure 105/60 105/58 L 114/67 Pulse Oximetry 98 98 99 09/02/18 20:21 09/02/18 21:00 09/02/18 22:00 Temperature Pulse Rate 82 78 81 Respiratory Rate 18 16 23 Blood Pressure Pulse Oximetry 100 97 99 09/02/18 23:00 09/03/18 00:00 09/03/18 01:00 Temperature 97.7 F Pulse Rate 79 80 76 Respiratory Rate 22 18 16 Blood Pressure Pulse Oximetry 97 99 100 09/03/18 01:04 09/03/18 02:00 09/03/18 03:00 Temperature Pulse Rate 80 80 77 Respiratory Rate 20 17 14 Blood Pressure Pulse Oximetry 100 100 09/03/18 04:00 09/03/18 04:02 09/03/18 04:03 Temperature 97.7 F Pulse Rate 75 75 76 Respiratory Rate 14 12 25 H Blood Pressure 106/61 106/61 Pulse Oximetry 100 100 99 09/03/18 04:45 09/03/18 04:46 09/03/18 05:00 Temperature Pulse Rate 81 82 Respiratory Rate 18 19 21 Blood Pressure 115/66 Pulse Oximetry 99 100 09/03/18 06:00 09/03/18 07:00 09/03/18 08:00 Temperature Pulse Rate 85 80 83 Respiratory Rate 20 18 19 Blood Pressure 115/71 113/67 115/65 Pulse Oximetry 100 99 100 09/03/18 08:35 09/03/18 09:00 09/03/18 10:00 Temperature 99.5 F Pulse Rate 82 86 88 Respiratory Rate 17 16 26 H Blood Pressure 124/73 106/73 Pulse Oximetry 100 99 97 09/03/18 11:00 09/03/18 12:00 09/03/18 13:00 Temperature 98.1 F Pulse Rate 87 93 H 90 Respiratory Rate 17 23 17 Blood Pressure 125/74 121/71 119/64 Pulse Oximetry 99 97 96 09/03/18 14:00 09/03/18 16:27 Temperature Pulse Rate 87 86 Respiratory Rate 21 18 Blood Pressure 115/68 Pulse Oximetry 97 Intake & Output 09/02/18 09/03/18 09/03/18 18:59 06:59 18:59 Intake Total 1762 / 1762 900 / 900 540 / 540 Output Total 1000 / 1000 1800 / 1800 Balance 762 / 762 -900 / -900 540 / 540 Weight 81.3 kg Intake: IV 1762 / 1762 900 / 900 540 / 540 Cordarone Inj 450 MG In D5W Inj 250 / 250 250 / 250 250 / 250 241 ML @ 1 MG/MIN 33.33 mls/hr IV.CONT TITRATE PRN Rx#: [id number] Sodium Bicarbonate 8.4% Inj 150 235 / 235 MEQ In Sterile Water for Inj 850 ML @ 150 mls/hr IV.CONT . Q6H40M [facility] Rx#:[id number] Pitressin Inj 40 UNIT In D5W 0 / 0 Inj 98 ML @ 0.04 UNITS/MIN 6 mls/hr IV.CONT CONT [facility] Rx#: [id number] Flexbumin 25% Inj 50 ML @ 50 50 / 50 50 / 50 50 / 50 mls/hr IV.SIG Q12H [facility] Rx#: [id number] Azithromycin Inj 500 MG In NS 250 / 250 Inj 250 ML @ 250 mls/hr IV.SIG Q24H [facility] Rx#:[id number] Azactam Inj 2 GM In NS Inj 100 200 / 200 100 / 100 200 / 200 ML @ 200 mls/hr IV.SIG Q8H [facility] Rx#:[id number] Calcium Chloride Inj 1 GM In 110 / 110 D5W Inj 100 ML @ 110 mls/hr IV. SIG ONCE ONE Rx#:[id number] Magnesium Sulfate Inj 2 GM In 100 / 100 NS Inj 96 ML @ 50 mls/hr IV.SIG ONCE ONE Rx#:[id number] Levophed Inj 4 MG In NS Inj 246 0 / 0 ML @ 2 MCG/MIN 7.5 mls/hr IV. SIG TITRATE PRN Rx#:[id number] Vitamin K Inj 10 MG In D5W Inj 102 / 102 50 ML @ 102 mls/hr IV.SIG STAT [facility] Rx#:[id number] Vancomycin Inj 1,500 MG In NS 515 / 515 Inj 500 ML @ 250 mls/hr IV.SIG ONCE ONE Rx#:[id number] fentaNYL 10 mcg/mL Premix Drip 250 / 250 40 / 40 2,500 mcg In 250 ml @ 50 MCG/HR 5 mls/hr IV.SIG TITRATE PRN Rx #:[id number] Flagyl 500 MG Inj 100 ML @ 100 200 / 200 mls/hr IV.SIG Q8H [facility] Rx#: [id number] Output: Urine Amount (Catheter) 1000 / 1000 1800 / 1800 Indwelling Urethral Catheter 1000 / 1000 1800 / 1800 Other: Date of Last Bowel Movement 08/29/18 08/29/18 08/29/18 # Bowel Movements 0 Physical Exam: CONSTITUTIONAL/GENERAL: This is a critically ill pt, in no apparent distress. TUBES/LINES/DRAINS:ETT, OG, right Sub CL, AICD, PIV left, [place]. SKIN: Pale. Ecchymoses on upper extremities. No wounds seen anteriorly. Skin temperature appropriate. Not diaphoretic. EYES: opens eyes. ENT: Hard of hearing. nose without bleeding or purulent drainage. Throat without visible erythema, exudates, masses, or lesions. CARDIOVASCULAR: Regular rate and rhythm. RESPIRATORY/CHEST: Symmetric, unlabored respirations scattered coarse breath sounds bilaterally R > L. GASTROINTESTINAL: Abdomen soft, distended. Bowel sounds +. GENITOURINARY: Without palpable bladder distension. [place] catheter in place. MUSCULOSKELETAL: Extremities without clubbing, cyanosis, or edema. No mottling or clubbing. NEUROLOGICAL: Awakens, confused. PSYCHIATRIC: arousable, confused. Diagnostic Tests Laboratory: Laboratory Results - last 72 hr 08/31/18 08/31/18 08/31/18 17:49 20:31 20:55 WBC RBC Hgb Hct MCV MCH MCHC RDW Plt Count MPV Prelim Diff (Auto) Neut % (Auto) Lymph % (Auto) [place] % (Auto) Eos % (Auto) Baso % (Auto) Neut # (Auto) Lymph # (Auto) [place] # (Auto) Eos # (Auto) Baso # (Auto) WBC Differential Diff Scan Seg Neuts % (Manual) Band Neuts % (Manual) Lymphocytes % (Manual) Monocytes % (Manual) Metamyelocytes % (Man) Abs Neuts (Manual) Nucleated RBCs/100 WBC Differential Comment Toxic Granulation Toxic Vacuolation Platelet Estimate Platelet Morphology Ovalocytes Acanthocytes (Spur) PT INR APTT Fibrinogen Puncture Site Right femoral Patient Temperature 98.6 O2 Saturation 78 L* ABG pH 7.09 L* ABG pCO2 26 L ABG pO2 58 L* ABG HCO3 7 L* ABG O2 Content 14.5 ABG Base Excess -20.5 L ABG Methemoglobin 1.6 Parveen Test Present Hemoglobin 13.2 Carboxyhemoglobin 0.2 O2 Delivery Device Nasal cannula Liter Flow 3.00 Vent Setting Inspired O2 Critical Value Yes Sodium Potassium Chloride Carbon Dioxide Anion Gap BUN Creatinine Estimated GFR POC Glucose 75 52 L Random Glucose Lactic Acid Calcium Prot Corrected Calcium Magnesium Total Bilirubin AST ALT Alkaline Phosphatase Troponin I Total Protein Albumin Urine Color Urine Clarity Urine pH Ur Specific [place] Urine Protein Urine Glucose (UA) Urine Ketones Urine Occult Blood Urine Nitrate Urine Bilirubin Urine Urobilinogen Ur Leukocyte Esterase Urine RBC Urine WBC Ur Squamous Epith Cells Hyaline Casts Urine Mucus Micro UA Comment Ur Microscopic Review Urine Culture Comments Nasal Screen MRSA (PCR) Random Vancomycin Blood Type Blood Bank Comment 08/31/18 08/31/18 08/31/18 21:06 21:30 21:45 WBC RBC Hgb Hct MCV MCH MCHC RDW Plt Count MPV Prelim Diff (Auto) Neut % (Auto) Lymph % (Auto) [place] % (Auto) Eos % (Auto) Baso % (Auto) Neut # (Auto) Lymph # (Auto) [place] # (Auto) Eos # (Auto) Baso # (Auto) WBC Differential Diff Scan Seg Neuts % (Manual) Band Neuts % (Manual) Lymphocytes % (Manual) Monocytes % (Manual) Metamyelocytes % (Man) Abs Neuts (Manual) Nucleated RBCs/100 WBC Differential Comment Toxic Granulation Toxic Vacuolation Platelet Estimate Platelet Morphology Ovalocytes Acanthocytes (Spur) PT INR APTT Fibrinogen Puncture Site Art line Patient Temperature 98.6 O2 Saturation 97 ABG pH 7.24 L* ABG pCO2 32 L ABG pO2 448 H ABG HCO3 32 H ABG O2 Content 17.6 ABG Base Excess 13.0 H ABG Methemoglobin 1.7 Parveen Test Present Hemoglobin 12.0 Carboxyhemoglobin 0.2 O2 Delivery Device Ventilator Liter Flow Vent Setting 16/550/+5 Inspired O2 0 Critical Value Yes Sodium Potassium Chloride Carbon Dioxide Anion Gap BUN Creatinine Estimated GFR POC Glucose 194 H Random Glucose Lactic Acid 15.7 H* Calcium Prot Corrected Calcium Magnesium Total Bilirubin AST ALT Alkaline Phosphatase Troponin I Total Protein Albumin Urine Color Urine Clarity Urine pH Ur Specific [place] Urine Protein Urine Glucose (UA) Urine Ketones Urine Occult Blood Urine Nitrate Urine Bilirubin Urine Urobilinogen Ur Leukocyte Esterase Urine RBC Urine WBC Ur Squamous Epith Cells Hyaline Casts Urine Mucus Micro UA Comment Ur Microscopic Review Urine Culture Comments Nasal Screen MRSA (PCR) Random Vancomycin Blood Type Blood Bank Comment 08/31/18 08/31/18 08/31/18 21:45 21:45 21:45 WBC 16.4 H RBC 4.00 L Hgb 11.9 L D Hct 38.0 L MCV 95.1 MCH 29.9 MCHC 31.4 L RDW 14.8 Plt Count 263 MPV 9.2 Prelim Diff (Auto) Slide review pending Neut % (Auto) 87.0 H Lymph % (Auto) 3.8 L [place] % (Auto) 9.0 H Eos % (Auto) 0.1 Baso % (Auto) 0.1 Neut # (Auto) 14.2 H Lymph # (Auto) 0.6 L [place] # (Auto) 1.5 H Eos # (Auto) 0.0 Baso # (Auto) 0.0 WBC Differential . Diff Scan Auto diff confirmed Seg Neuts % (Manual) Band Neuts % (Manual) Lymphocytes % (Manual) Monocytes % (Manual) Metamyelocytes % (Man) Abs Neuts (Manual) Nucleated RBCs/100 WBC Differential Comment . Toxic Granulation Toxic Vacuolation Platelet Estimate Normal Platelet Morphology Normal Ovalocytes Acanthocytes (Spur) PT INR APTT Fibrinogen Puncture Site Patient Temperature O2 Saturation ABG pH ABG pCO2 ABG pO2 ABG HCO3 ABG O2 Content ABG Base Excess ABG Methemoglobin Parveen Test Hemoglobin Carboxyhemoglobin O2 Delivery Device Liter Flow Vent Setting Inspired O2 Critical Value Sodium 144 Potassium 5.5 H Chloride 103 Carbon Dioxide 15.1 L Anion Gap 26 H BUN 50 H Creatinine 3.26 H Estimated GFR 18 L POC Glucose Random Glucose 217 H Lactic Acid Calcium 7.7 L D Prot Corrected Calcium Magnesium Total Bilirubin 2.6 H AST 12246 H ALT 4298 H Alkaline Phosphatase 57 Troponin I 0.12 H Total Protein 5.9 L D Albumin 2.7 L D Urine Color Urine Clarity Urine pH Ur Specific [place] Urine Protein Urine Glucose (UA) Urine Ketones Urine Occult Blood Urine Nitrate Urine Bilirubin Urine Urobilinogen Ur Leukocyte Esterase Urine RBC Urine WBC Ur Squamous Epith Cells Hyaline Casts Urine Mucus Micro UA Comment Ur Microscopic Review Urine Culture Comments Nasal Screen MRSA (PCR) Random Vancomycin Blood Type Blood Bank Comment 08/31/18 08/31/18 09/01/18 21:45 23:01 00:05 WBC RBC Hgb Hct MCV MCH MCHC RDW Plt Count MPV Prelim Diff (Auto) Neut % (Auto) Lymph % (Auto) [place] % (Auto) Eos % (Auto) Baso % (Auto) Neut # (Auto) Lymph # (Auto) [place] # (Auto) Eos # (Auto) Baso # (Auto) WBC Differential Diff Scan Seg Neuts % (Manual) Band Neuts % (Manual) Lymphocytes % (Manual) Monocytes % (Manual) Metamyelocytes % (Man) Abs Neuts (Manual) Nucleated RBCs/100 WBC Differential Comment Toxic Granulation Toxic Vacuolation Platelet Estimate Platelet Morphology Ovalocytes Acanthocytes (Spur) PT INR APTT Fibrinogen Puncture Site Patient Temperature O2 Saturation ABG pH ABG pCO2 ABG pO2 ABG HCO3 ABG O2 Content ABG Base Excess ABG Methemoglobin Parveen Test Hemoglobin Carboxyhemoglobin O2 Delivery Device Liter Flow Vent Setting Inspired O2 Critical Value Sodium Potassium Chloride Carbon Dioxide Anion Gap BUN Creatinine Estimated GFR POC Glucose 191 H Random Glucose Lactic Acid Calcium Prot Corrected Calcium Magnesium Total Bilirubin AST ALT Alkaline Phosphatase Troponin I Total Protein Albumin Urine Color Yellow Urine Clarity Hazy H Urine pH 5.0 Ur Specific [place] 1.011 Urine Protein Negative Urine Glucose (UA) Negative Urine Ketones Negative Urine Occult Blood Moderate H Urine Nitrate Negative Urine Bilirubin Negative Urine Urobilinogen 2.0 H Ur Leukocyte Esterase Negative Urine RBC 3 Urine WBC 3 Ur Squamous Epith Cells <1 Hyaline Casts 1 Urine Mucus Few H Micro UA Comment Cath-culture not ind Ur Microscopic Review Not Reportable Urine Culture Comments Cath-cult not ind Nasal Screen MRSA (PCR) Not detected Random Vancomycin Blood Type Blood Bank Comment 09/01/18 09/01/18 09/01/18 00:15 01:00 02:25 WBC RBC Hgb Hct MCV MCH MCHC RDW Plt Count MPV Prelim Diff (Auto) Neut % (Auto) Lymph % (Auto) [place] % (Auto) Eos % (Auto) Baso % (Auto) Neut # (Auto) Lymph # (Auto) [place] # (Auto) Eos # (Auto) Baso # (Auto) WBC Differential Diff Scan Seg Neuts % (Manual) Band Neuts % (Manual) Lymphocytes % (Manual) Monocytes % (Manual) Metamyelocytes % (Man) Abs Neuts (Manual) Nucleated RBCs/100 WBC Differential Comment Toxic Granulation Toxic Vacuolation Platelet Estimate Platelet Morphology Ovalocytes Acanthocytes (Spur) PT 73.6 H D INR 7.4 H* APTT Fibrinogen Puncture Site Patient Temperature O2 Saturation ABG pH ABG pCO2 ABG pO2 ABG HCO3 ABG O2 Content ABG Base Excess ABG Methemoglobin Parveen Test Hemoglobin Carboxyhemoglobin O2 Delivery Device Liter Flow Vent Setting Inspired O2 Critical Value Sodium Potassium Chloride Carbon Dioxide Anion Gap BUN Creatinine Estimated GFR POC Glucose Random Glucose Lactic Acid 14.7 H* 14.1 H* Calcium Prot Corrected Calcium Magnesium Total Bilirubin AST ALT Alkaline Phosphatase Troponin I Total Protein Albumin Urine Color Urine Clarity Urine pH Ur Specific [place] Urine Protein Urine Glucose (UA) Urine Ketones Urine Occult Blood Urine Nitrate Urine Bilirubin Urine Urobilinogen Ur Leukocyte Esterase Urine RBC Urine WBC Ur Squamous Epith Cells Hyaline Casts Urine Mucus Micro UA Comment Ur Microscopic Review Urine Culture Comments Nasal Screen MRSA (PCR) Random Vancomycin Blood Type Blood Bank Comment 09/01/18 09/01/18 09/01/18 03:00 04:15 04:15 WBC 18.0 H RBC 3.90 L Hgb 11.8 L Hct 37.9 L MCV 97.1 MCH 30.3 MCHC 31.2 L RDW 15.2 Plt Count 248 MPV 9.4 Prelim Diff (Auto) Slide review pending Neut % (Auto) 87.0 H Lymph % (Auto) 5.2 L [place] % (Auto) 7.5 Eos % (Auto) 0.2 Baso % (Auto) 0.1 Neut # (Auto) 15.6 H Lymph # (Auto) 0.9 L [place] # (Auto) 1.3 H Eos # (Auto) 0.0 Baso # (Auto) 0.0 WBC Differential . Diff Scan Auto diff confirmed Seg Neuts % (Manual) Band Neuts % (Manual) Lymphocytes % (Manual) Monocytes % (Manual) Metamyelocytes % (Man) Abs Neuts (Manual) Nucleated RBCs/100 WBC Differential Comment . Toxic Granulation 1+ H Toxic Vacuolation Present H Platelet Estimate Normal Platelet Morphology Normal Ovalocytes Acanthocytes (Spur) Occ H PT INR APTT Fibrinogen Puncture Site Patient Temperature O2 Saturation ABG pH ABG pCO2 ABG pO2 ABG HCO3 ABG O2 Content ABG Base Excess ABG Methemoglobin Parveen Test Hemoglobin Carboxyhemoglobin O2 Delivery Device Liter Flow Vent Setting Inspired O2 Critical Value Sodium 139 Potassium 4.8 Chloride 102 Carbon Dioxide 13.5 L Anion Gap 24 H BUN 49 H Creatinine 3.14 H Estimated GFR 19 L POC Glucose Random Glucose 338 H D Lactic Acid Calcium 7.2 L* Prot Corrected Calcium 8.0 L Magnesium 2.0 Total Bilirubin 2.8 H AST 06014 H ALT 5706 H Alkaline Phosphatase 62 Troponin I Total Protein 5.6 L Albumin 2.7 L Urine Color Urine Clarity Urine pH Ur Specific [place] Urine Protein Urine Glucose (UA) Urine Ketones Urine Occult Blood Urine Nitrate Urine Bilirubin Urine Urobilinogen Ur Leukocyte Esterase Urine RBC Urine WBC Ur Squamous Epith Cells Hyaline Casts Urine Mucus Micro UA Comment Ur Microscopic Review Urine Culture Comments Nasal Screen MRSA (PCR) Random Vancomycin Blood Type O Positive Blood Bank Comment 09/01/18 09/01/18 09/01/18 04:15 08:08 09:13 WBC RBC Hgb Hct MCV MCH MCHC RDW Plt Count MPV Prelim Diff (Auto) Neut % (Auto) Lymph % (Auto) [place] % (Auto) Eos % (Auto) Baso % (Auto) Neut # (Auto) Lymph # (Auto) [place] # (Auto) Eos # (Auto) Baso # (Auto) WBC Differential Diff Scan Seg Neuts % (Manual) Band Neuts % (Manual) Lymphocytes % (Manual) Monocytes % (Manual) Metamyelocytes % (Man) Abs Neuts (Manual) Nucleated RBCs/100 WBC Differential Comment Toxic Granulation Toxic Vacuolation Platelet Estimate Platelet Morphology Ovalocytes Acanthocytes (Spur) PT 89.8 H D INR 9.0 H* APTT Fibrinogen Puncture Site Art line Patient Temperature 98.6 O2 Saturation 96 ABG pH 7.26 L* ABG pCO2 27 L ABG pO2 144 H ABG HCO3 12 L* ABG O2 Content 16.0 ABG Base Excess -13.8 L ABG Methemoglobin 1.7 Parveen Test Present Hemoglobin 11.6 L Carboxyhemoglobin 0.4 O2 Delivery Device Ventilator Liter Flow Vent Setting Inspired O2 50 Critical Value Yes Sodium Potassium Chloride Carbon Dioxide Anion Gap BUN Creatinine Estimated GFR POC Glucose 303 H Random Glucose Lactic Acid Calcium Prot Corrected Calcium Magnesium Total Bilirubin AST ALT Alkaline Phosphatase Troponin I Total Protein Albumin Urine Color Urine Clarity Urine pH Ur Specific [place] Urine Protein Urine Glucose (UA) Urine Ketones Urine Occult Blood Urine Nitrate Urine Bilirubin Urine Urobilinogen Ur Leukocyte Esterase Urine RBC Urine WBC Ur Squamous Epith Cells Hyaline Casts Urine Mucus Micro UA Comment Ur Microscopic Review Urine Culture Comments Nasal Screen MRSA (PCR) Random Vancomycin Blood Type Blood Bank Comment 09/01/18 09/01/18 09/01/18 09:28 09:28 09:28 WBC RBC Hgb Hct MCV MCH MCHC RDW Plt Count MPV Prelim Diff (Auto) Neut % (Auto) Lymph % (Auto) [place] % (Auto) Eos % (Auto) Baso % (Auto) Neut # (Auto) Lymph # (Auto) [place] # (Auto) Eos # (Auto) Baso # (Auto) WBC Differential Diff Scan Seg Neuts % (Manual) Band Neuts % (Manual) Lymphocytes % (Manual) Monocytes % (Manual) Metamyelocytes % (Man) Abs Neuts (Manual) Nucleated RBCs/100 WBC Differential Comment Toxic Granulation Toxic Vacuolation Platelet Estimate Platelet Morphology Ovalocytes Acanthocytes (Spur) PT 55.9 H D INR 5.6 APTT 44.1 H Fibrinogen 282 Puncture Site Patient Temperature O2 Saturation ABG pH ABG pCO2 ABG pO2 ABG HCO3 ABG O2 Content ABG Base Excess ABG Methemoglobin Parveen Test Hemoglobin Carboxyhemoglobin O2 Delivery Device Liter Flow Vent Setting Inspired O2 Critical Value Sodium Potassium Chloride Carbon Dioxide Anion Gap BUN Creatinine Estimated GFR POC Glucose Random Glucose Lactic Acid 13.0 H* Calcium Prot Corrected Calcium Magnesium Total Bilirubin AST ALT Alkaline Phosphatase Troponin I Total Protein Albumin Urine Color Urine Clarity Urine pH Ur Specific [place] Urine Protein Urine Glucose (UA) Urine Ketones Urine Occult Blood Urine Nitrate Urine Bilirubin Urine Urobilinogen Ur Leukocyte Esterase Urine RBC Urine WBC Ur Squamous Epith Cells Hyaline Casts Urine Mucus Micro UA Comment Ur Microscopic Review Urine Culture Comments Nasal Screen MRSA (PCR) Random Vancomycin Blood Type Blood Bank Comment 09/01/18 09/01/18 09/01/18 12:06 13:41 15:51 WBC RBC Hgb Hct MCV MCH MCHC RDW Plt Count MPV Prelim Diff (Auto) Neut % (Auto) Lymph % (Auto) [place] % (Auto) Eos % (Auto) Baso % (Auto) Neut # (Auto) Lymph # (Auto) [place] # (Auto) Eos # (Auto) Baso # (Auto) WBC Differential Diff Scan Seg Neuts % (Manual) Band Neuts % (Manual) Lymphocytes % (Manual) Monocytes % (Manual) Metamyelocytes % (Man) Abs Neuts (Manual) Nucleated RBCs/100 WBC Differential Comment Toxic Granulation Toxic Vacuolation Platelet Estimate Platelet Morphology Ovalocytes Acanthocytes (Spur) PT INR APTT Fibrinogen Puncture Site Patient Temperature O2 Saturation ABG pH ABG pCO2 ABG pO2 ABG HCO3 ABG O2 Content ABG Base Excess ABG Methemoglobin Parveen Test Hemoglobin Carboxyhemoglobin O2 Delivery Device Liter Flow Vent Setting Inspired O2 Critical Value Sodium Potassium Chloride Carbon Dioxide Anion Gap BUN Creatinine Estimated GFR POC Glucose 311 H 304 H Random Glucose Lactic Acid 10.2 H* Calcium Prot Corrected Calcium Magnesium Total Bilirubin AST ALT Alkaline Phosphatase Troponin I Total Protein Albumin Urine Color Urine Clarity Urine pH Ur Specific [place] Urine Protein Urine Glucose (UA) Urine Ketones Urine Occult Blood Urine Nitrate Urine Bilirubin Urine Urobilinogen Ur Leukocyte Esterase Urine RBC Urine WBC Ur Squamous Epith Cells Hyaline Casts Urine Mucus Micro UA Comment Ur Microscopic Review Urine Culture Comments Nasal Screen MRSA (PCR) Random Vancomycin Blood Type Blood Bank Comment 09/01/18 09/01/18 09/01/18 17:04 17:20 17:20 WBC RBC Hgb Hct MCV MCH MCHC RDW Plt Count MPV Prelim Diff (Auto) Neut % (Auto) Lymph % (Auto) [place] % (Auto) Eos % (Auto) Baso % (Auto) Neut # (Auto) Lymph # (Auto) [place] # (Auto) Eos # (Auto) Baso # (Auto) WBC Differential Diff Scan Seg Neuts % (Manual) Band Neuts % (Manual) Lymphocytes % (Manual) Monocytes % (Manual) Metamyelocytes % (Man) Abs Neuts (Manual) Nucleated RBCs/100 WBC Differential Comment Toxic Granulation Toxic Vacuolation Platelet Estimate Platelet Morphology Ovalocytes Acanthocytes (Spur) PT INR APTT Fibrinogen Puncture Site Art line Patient Temperature 98.6 O2 Saturation 97 ABG pH 7.55 H* ABG pCO2 22 L* ABG pO2 173 H ABG HCO3 19 L ABG O2 Content 14.1 ABG Base Excess -3.0 L ABG Methemoglobin 1.7 Parveen Test Hemoglobin 10.1 L Carboxyhemoglobin 0.9 O2 Delivery Device Ventilator Liter Flow Vent Setting Prvc ac Inspired O2 50 Critical Value Yes Sodium 137 Potassium 4.1 Chloride 98 Carbon Dioxide 21.1 Anion Gap 18 H BUN 51 H Creatinine 3.28 H Estimated GFR 18 L POC Glucose Random Glucose 272 H Lactic Acid 6.8 H* Calcium 6.8 L* Prot Corrected Calcium 7.8 L Magnesium 1.7 Total Bilirubin 2.7 H AST 59058 H ALT 5779 H Alkaline Phosphatase 73 Troponin I 1.62 H* Total Protein 5.2 L Albumin 2.7 L Urine Color Urine Clarity Urine pH Ur Specific [place] Urine Protein Urine Glucose (UA) Urine Ketones Urine Occult Blood Urine Nitrate Urine Bilirubin Urine Urobilinogen Ur Leukocyte Esterase Urine RBC Urine WBC Ur Squamous Epith Cells Hyaline Casts Urine Mucus Micro UA Comment Ur Microscopic Review Urine Culture Comments Nasal Screen MRSA (PCR) Random Vancomycin Blood Type Blood Bank Comment 09/01/18 09/01/18 09/01/18 17:20 17:52 23:28 WBC RBC Hgb Hct MCV MCH MCHC RDW Plt Count MPV Prelim Diff (Auto) Neut % (Auto) Lymph % (Auto) [place] % (Auto) Eos % (Auto) Baso % (Auto) Neut # (Auto) Lymph # (Auto) [place] # (Auto) Eos # (Auto) Baso # (Auto) WBC Differential Diff Scan Seg Neuts % (Manual) Band Neuts % (Manual) Lymphocytes % (Manual) Monocytes % (Manual) Metamyelocytes % (Man) Abs Neuts (Manual) Nucleated RBCs/100 WBC Differential Comment Toxic Granulation Toxic Vacuolation Platelet Estimate Platelet Morphology Ovalocytes Acanthocytes (Spur) PT 86.7 H D INR 8.7 H* APTT Fibrinogen Puncture Site Patient Temperature O2 Saturation ABG pH ABG pCO2 ABG pO2 ABG HCO3 ABG O2 Content ABG Base Excess ABG Methemoglobin Parveen Test Hemoglobin Carboxyhemoglobin O2 Delivery Device Liter Flow Vent Setting Inspired O2 Critical Value Sodium Potassium Chloride Carbon Dioxide Anion Gap BUN Creatinine Estimated GFR POC Glucose 265 H 234 H Random Glucose Lactic Acid Calcium Prot Corrected Calcium Magnesium Total Bilirubin AST ALT Alkaline Phosphatase Troponin I Total Protein Albumin Urine Color Urine Clarity Urine pH Ur Specific [place] Urine Protein Urine Glucose (UA) Urine Ketones Urine Occult Blood Urine Nitrate Urine Bilirubin Urine Urobilinogen Ur Leukocyte Esterase Urine RBC Urine WBC Ur Squamous Epith Cells Hyaline Casts Urine Mucus Micro UA Comment Ur Microscopic Review Urine Culture Comments Nasal Screen MRSA (PCR) Random Vancomycin Blood Type Blood Bank Comment 09/02/18 09/02/18 09/02/18 06:23 07:30 07:30 WBC RBC Hgb Hct MCV MCH MCHC RDW Plt Count MPV Prelim Diff (Auto) Neut % (Auto) Lymph % (Auto) [place] % (Auto) Eos % (Auto) Baso % (Auto) Neut # (Auto) Lymph # (Auto) [place] # (Auto) Eos # (Auto) Baso # (Auto) WBC Differential Diff Scan Seg Neuts % (Manual) Band Neuts % (Manual) Lymphocytes % (Manual) Monocytes % (Manual) Metamyelocytes % (Man) Abs Neuts (Manual) Nucleated RBCs/100 WBC Differential Comment Toxic Granulation Toxic Vacuolation Platelet Estimate Platelet Morphology Ovalocytes Acanthocytes (Spur) PT INR APTT Fibrinogen Puncture Site Patient Temperature O2 Saturation ABG pH ABG pCO2 ABG pO2 ABG HCO3 ABG O2 Content ABG Base Excess ABG Methemoglobin Parveen Test Hemoglobin Carboxyhemoglobin O2 Delivery Device Liter Flow Vent Setting Inspired O2 Critical Value Sodium Potassium Chloride Carbon Dioxide Anion Gap BUN Creatinine Estimated GFR POC Glucose 200 H Random Glucose Lactic Acid 4.5 H* Calcium Prot Corrected Calcium Magnesium Total Bilirubin AST ALT Alkaline Phosphatase Troponin I Total Protein Albumin Urine Color Urine Clarity Urine pH Ur Specific [place] Urine Protein Urine Glucose (UA) Urine Ketones Urine Occult Blood Urine Nitrate Urine Bilirubin Urine Urobilinogen Ur Leukocyte Esterase Urine RBC Urine WBC Ur Squamous Epith Cells Hyaline Casts Urine Mucus Micro UA Comment Ur Microscopic Review Urine Culture Comments Nasal Screen MRSA (PCR) Random Vancomycin 14.4 Blood Type Blood Bank Comment 09/02/18 09/02/18 09/02/18 07:30 07:30 07:30 WBC 9.3 RBC 3.45 L Hgb 10.6 L Hct 31.9 L MCV 92.6 D MCH 30.8 MCHC 33.3 RDW 14.7 Plt Count 172 D MPV 8.7 Prelim Diff (Auto) Slide review pending Neut % (Auto) 90.1 H Lymph % (Auto) 6.3 L [place] % (Auto) 3.4 Eos % (Auto) 0.0 Baso % (Auto) 0.2 Neut # (Auto) 8.4 H Lymph # (Auto) 0.6 L [place] # (Auto) 0.3 Eos # (Auto) 0.0 Baso # (Auto) 0.0 WBC Differential Manual diff final Diff Scan Seg Neuts % (Manual) 86 H Band Neuts % (Manual) 6 Lymphocytes % (Manual) 6 L Monocytes % (Manual) 2 Metamyelocytes % (Man) Abs Neuts (Manual) 8.6 H Nucleated RBCs/100 WBC 1 H Differential Comment . Toxic Granulation 1+ H Toxic Vacuolation Present H Platelet Estimate Normal Platelet Morphology Normal Ovalocytes Acanthocytes (Spur) PT 89.3 H INR 9.0 H* APTT Fibrinogen Puncture Site Patient Temperature O2 Saturation ABG pH ABG pCO2 ABG pO2 ABG HCO3 ABG O2 Content ABG Base Excess ABG Methemoglobin Parveen Test Hemoglobin Carboxyhemoglobin O2 Delivery Device Liter Flow Vent Setting Inspired O2 Critical Value Sodium 137 Potassium 3.9 Chloride 96 L Carbon Dioxide 28.5 Anion Gap 13 BUN 65 H Creatinine 3.52 H Estimated GFR 17 L POC Glucose Random Glucose 193 H Lactic Acid Calcium 7.0 L* Prot Corrected Calcium 8.0 L Magnesium Total Bilirubin 3.0 H AST 8258 H ALT 5179 H Alkaline Phosphatase 78 Troponin I Total Protein 5.2 L Albumin 2.7 L Urine Color Urine Clarity Urine pH Ur Specific [place] Urine Protein Urine Glucose (UA) Urine Ketones Urine Occult Blood Urine Nitrate Urine Bilirubin Urine Urobilinogen Ur Leukocyte Esterase Urine RBC Urine WBC Ur Squamous Epith Cells Hyaline Casts Urine Mucus Micro UA Comment Ur Microscopic Review Urine Culture Comments Nasal Screen MRSA (PCR) Random Vancomycin Blood Type Blood Bank Comment 09/02/18 09/02/18 09/02/18 10:00 11:22 16:25 WBC RBC Hgb Hct MCV MCH MCHC RDW Plt Count MPV Prelim Diff (Auto) Neut % (Auto) Lymph % (Auto) [place] % (Auto) Eos % (Auto) Baso % (Auto) Neut # (Auto) Lymph # (Auto) [place] # (Auto) Eos # (Auto) Baso # (Auto) WBC Differential Diff Scan Seg Neuts % (Manual) Band Neuts % (Manual) Lymphocytes % (Manual) Monocytes % (Manual) Metamyelocytes % (Man) Abs Neuts (Manual) Nucleated RBCs/100 WBC Differential Comment Toxic Granulation Toxic Vacuolation Platelet Estimate Platelet Morphology Ovalocytes Acanthocytes (Spur) PT 63.6 H D INR 6.4 H* APTT Fibrinogen Puncture Site Art line Patient Temperature 98.6 O2 Saturation 96 ABG pH 7.47 H ABG pCO2 32 L ABG pO2 139 H ABG HCO3 23 ABG O2 Content 14.4 ABG Base Excess -0.7 ABG Methemoglobin 1.7 Parveen Test Present Hemoglobin 10.4 L Carboxyhemoglobin 0.9 O2 Delivery Device Ventilator Liter Flow Vent Setting Ac/14/550/+5 Inspired O2 40 Critical Value No Sodium Potassium Chloride Carbon Dioxide Anion Gap BUN Creatinine Estimated GFR POC Glucose 149 H Random Glucose Lactic Acid Calcium Prot Corrected Calcium Magnesium Total Bilirubin AST ALT Alkaline Phosphatase Troponin I Total Protein Albumin Urine Color Urine Clarity Urine pH Ur Specific [place] Urine Protein Urine Glucose (UA) Urine Ketones Urine Occult Blood Urine Nitrate Urine Bilirubin Urine Urobilinogen Ur Leukocyte Esterase Urine RBC Urine WBC Ur Squamous Epith Cells Hyaline Casts Urine Mucus Micro UA Comment Ur Microscopic Review Urine Culture Comments Nasal Screen MRSA (PCR) Random Vancomycin Blood Type Blood Bank Comment 09/02/18 09/02/18 09/02/18 16:25 16:25 17:43 WBC RBC Hgb Hct MCV MCH MCHC RDW Plt Count MPV Prelim Diff (Auto) Neut % (Auto) Lymph % (Auto) [place] % (Auto) Eos % (Auto) Baso % (Auto) Neut # (Auto) Lymph # (Auto) [place] # (Auto) Eos # (Auto) Baso # (Auto) WBC Differential Diff Scan Seg Neuts % (Manual) Band Neuts % (Manual) Lymphocytes % (Manual) Monocytes % (Manual) Metamyelocytes % (Man) Abs Neuts (Manual) Nucleated RBCs/100 WBC Differential Comment Toxic Granulation Toxic Vacuolation Platelet Estimate Platelet Morphology Ovalocytes Acanthocytes (Spur) PT INR APTT Fibrinogen Puncture Site Patient Temperature O2 Saturation ABG pH ABG pCO2 ABG pO2 ABG HCO3 ABG O2 Content ABG Base Excess ABG Methemoglobin Parveen Test Hemoglobin Carboxyhemoglobin O2 Delivery Device Liter Flow Vent Setting Inspired O2 Critical Value Sodium 136 Potassium 3.7 Chloride 96 L Carbon Dioxide 27.6 Anion Gap 12 BUN 67 H Creatinine 3.48 H Estimated GFR 17 L POC Glucose 144 H Random Glucose 136 H Lactic Acid 3.8 H Calcium 7.4 L* Prot Corrected Calcium 8.5 Magnesium Total Bilirubin 3.1 H AST 5193 H ALT 4466 H Alkaline Phosphatase 79 Troponin I Total Protein 5.1 L Albumin 2.8 L Urine Color Urine Clarity Urine pH Ur Specific [place] Urine Protein Urine Glucose (UA) Urine Ketones Urine Occult Blood Urine Nitrate Urine Bilirubin Urine Urobilinogen Ur Leukocyte Esterase Urine RBC Urine WBC Ur Squamous Epith Cells Hyaline Casts Urine Mucus Micro UA Comment Ur Microscopic Review Urine Culture Comments Nasal Screen MRSA (PCR) Random Vancomycin Blood Type Blood Bank Comment 09/02/18 09/03/18 09/03/18 23:42 05:02 05:55 WBC 7.4 RBC 3.65 L Hgb 11.2 L Hct 33.1 L MCV 90.8 MCH 30.6 MCHC 33.7 RDW 14.8 Plt Count 167 MPV 8.7 Prelim Diff (Auto) Slide review pending Neut % (Auto) 91.5 H Lymph % (Auto) 4.9 L [place] % (Auto) 3.4 Eos % (Auto) 0.0 Baso % (Auto) 0.2 Neut # (Auto) 6.8 Lymph # (Auto) 0.4 L [place] # (Auto) 0.3 Eos # (Auto) 0.0 Baso # (Auto) 0.0 WBC Differential Manual diff final Diff Scan Seg Neuts % (Manual) 88 H Band Neuts % (Manual) 2 Lymphocytes % (Manual) 6 L Monocytes % (Manual) 2 Metamyelocytes % (Man) 2 H Abs Neuts (Manual) 6.8 Nucleated RBCs/100 WBC 6 H Differential Comment . Toxic Granulation Toxic Vacuolation Platelet Estimate Normal Platelet Morphology Normal Ovalocytes 1+ H Acanthocytes (Spur) PT INR APTT Fibrinogen Puncture Site Patient Temperature O2 Saturation ABG pH ABG pCO2 ABG pO2 ABG HCO3 ABG O2 Content ABG Base Excess ABG Methemoglobin Parveen Test Hemoglobin Carboxyhemoglobin O2 Delivery Device Liter Flow Vent Setting Inspired O2 Critical Value Sodium Potassium Chloride Carbon Dioxide Anion Gap BUN Creatinine Estimated GFR POC Glucose 146 H 176 H Random Glucose Lactic Acid Calcium Prot Corrected Calcium Magnesium Total Bilirubin AST ALT Alkaline Phosphatase Troponin I Total Protein Albumin Urine Color Urine Clarity Urine pH Ur Specific [place] Urine Protein Urine Glucose (UA) Urine Ketones Urine Occult Blood Urine Nitrate Urine Bilirubin Urine Urobilinogen Ur Leukocyte Esterase Urine RBC Urine WBC Ur Squamous Epith Cells Hyaline Casts Urine Mucus Micro UA Comment Ur Microscopic Review Urine Culture Comments Nasal Screen MRSA (PCR) Random Vancomycin Blood Type Blood Bank Comment 09/03/18 09/03/18 09/03/18 05:55 08:05 08:05 WBC RBC Hgb Hct MCV MCH MCHC RDW Plt Count MPV Prelim Diff (Auto) Neut % (Auto) Lymph % (Auto) [place] % (Auto) Eos % (Auto) Baso % (Auto) Neut # (Auto) Lymph # (Auto) [place] # (Auto) Eos # (Auto) Baso # (Auto) WBC Differential Diff Scan Seg Neuts % (Manual) Band Neuts % (Manual) Lymphocytes % (Manual) Monocytes % (Manual) Metamyelocytes % (Man) Abs Neuts (Manual) Nucleated RBCs/100 WBC Differential Comment Toxic Granulation Toxic Vacuolation Platelet Estimate Platelet Morphology Ovalocytes Acanthocytes (Spur) PT 45.4 H D INR 4.5 APTT 45.9 H Fibrinogen Puncture Site Patient Temperature O2 Saturation ABG pH ABG pCO2 ABG pO2 ABG HCO3 ABG O2 Content ABG Base Excess ABG Methemoglobin Parveen Test Hemoglobin Carboxyhemoglobin O2 Delivery Device Liter Flow Vent Setting Inspired O2 Critical Value Sodium 139 Potassium 3.5 Chloride 97 L Carbon Dioxide 26.1 Anion Gap 16 H BUN 70 H Creatinine 3.52 H Estimated GFR POC Glucose Random Glucose 156 H Lactic Acid Calcium 7.7 L Prot Corrected Calcium Magnesium Total Bilirubin 4.1 H AST 2611 H ALT 3836 H Alkaline Phosphatase 83 Troponin I Total Protein 5.4 L Albumin 2.8 L Urine Color Urine Clarity Urine pH Ur Specific [place] Urine Protein Urine Glucose (UA) Urine Ketones Urine Occult Blood Urine Nitrate Urine Bilirubin Urine Urobilinogen Ur Leukocyte Esterase Urine RBC Urine WBC Ur Squamous Epith Cells Hyaline Casts Urine Mucus Micro UA Comment Ur Microscopic Review Urine Culture Comments Nasal Screen MRSA (PCR) Random Vancomycin Blood Type Blood Bank Comment 11/11/2009/03/18 09/03/18 08:05 08:05 11:25 WBC RBC Hgb Hct MCV MCH MCHC RDW Plt Count MPV Prelim Diff (Auto) Neut % (Auto) Lymph % (Auto) [place] % (Auto) Eos % (Auto) Baso % (Auto) Neut # (Auto) Lymph # (Auto) [place] # (Auto) Eos # (Auto) Baso # (Auto) WBC Differential Diff Scan Seg Neuts % (Manual) Band Neuts % (Manual) Lymphocytes % (Manual) Monocytes % (Manual) Metamyelocytes % (Man) Abs Neuts (Manual) Nucleated RBCs/100 WBC Differential Comment Toxic Granulation Toxic Vacuolation Platelet Estimate Platelet Morphology Ovalocytes Acanthocytes (Spur) PT INR APTT Fibrinogen 185 L Puncture Site Patient Temperature O2 Saturation ABG pH ABG pCO2 ABG pO2 ABG HCO3 ABG O2 Content ABG Base Excess ABG Methemoglobin Parveen Test Hemoglobin Carboxyhemoglobin O2 Delivery Device Liter Flow Vent Setting Inspired O2 Critical Value Sodium Potassium Chloride Carbon Dioxide Anion Gap BUN Creatinine Estimated GFR POC Glucose 142 H Random Glucose Lactic Acid 3.4 H Calcium Prot Corrected Calcium Magnesium Total Bilirubin AST ALT Alkaline Phosphatase Troponin I Total Protein Albumin Urine Color Urine Clarity Urine pH Ur Specific [place] Urine Protein Urine Glucose (UA) Urine Ketones Urine Occult Blood Urine Nitrate Urine Bilirubin Urine Urobilinogen Ur Leukocyte Esterase Urine RBC Urine WBC Ur Squamous Epith Cells Hyaline Casts Urine Mucus Micro UA Comment Ur Microscopic Review Urine Culture Comments Nasal Screen MRSA (PCR) Random Vancomycin Blood Type Blood Bank Comment 09/03/18 17:15 WBC RBC Hgb Hct MCV MCH MCHC RDW Plt Count MPV Prelim Diff (Auto) Neut % (Auto) Lymph % (Auto) [place] % (Auto) Eos % (Auto) Baso % (Auto) Neut # (Auto) Lymph # (Auto) [place] # (Auto) Eos # (Auto) Baso # (Auto) WBC Differential Diff Scan Seg Neuts % (Manual) Band Neuts % (Manual) Lymphocytes % (Manual) Monocytes % (Manual) Metamyelocytes % (Man) Abs Neuts (Manual) Nucleated RBCs/100 WBC Differential Comment Toxic Granulation Toxic Vacuolation Platelet Estimate Platelet Morphology Ovalocytes Acanthocytes (Spur) PT INR APTT Fibrinogen Puncture Site Patient Temperature O2 Saturation ABG pH ABG pCO2 ABG pO2 ABG HCO3 ABG O2 Content ABG Base Excess ABG Methemoglobin Parveen Test Hemoglobin Carboxyhemoglobin O2 Delivery Device Liter Flow Vent Setting Inspired O2 Critical Value Sodium Potassium Chloride Carbon Dioxide Anion Gap BUN Creatinine Estimated GFR POC Glucose 181 H Random Glucose Lactic Acid Calcium Prot Corrected Calcium Magnesium Total Bilirubin AST ALT Alkaline Phosphatase Troponin I Total Protein Albumin Urine Color Urine Clarity Urine pH Ur Specific [place] Urine Protein Urine Glucose (UA) Urine Ketones Urine Occult Blood Urine Nitrate Urine Bilirubin Urine Urobilinogen Ur Leukocyte Esterase Urine RBC Urine WBC Ur Squamous Epith Cells Hyaline Casts Urine Mucus Micro UA Comment Ur Microscopic Review Urine Culture Comments Nasal Screen MRSA (PCR) Random Vancomycin Blood Type Blood Bank Comment Result Diagrams: 09/03/18 05:55 09/03/18 05:55 Microbiology: Microbiology 09/02/18 21:03 Aerobic Blood Culture - Preliminary Blood - Peripheral No growth in 1 day Anaerobic Blood Culture - Preliminary No growth in 1 day 09/02/18 21:08 Aerobic Blood Culture - Preliminary Blood - Peripheral No growth in 1 day Anaerobic Blood Culture - Preliminary No growth in 1 day 09/01/18 00:05 Aerobic Blood Culture - Preliminary Blood - Peripheral No growth in 2 days Anaerobic Blood Culture - Preliminary No growth in 2 days 08/31/18 22:20 Aerobic Blood Culture - Preliminary Blood - Peripheral Viridans streptococcus grp Anaerobic Blood Culture - Preliminary No growth in 3 days 09/01/18 00:05 Gram Stain - Final Sputum - Endotracheal Sputum Culture - Final Light growth normal respiratory [place] 08/31/18 21:40 Streptococcus pneumoniae Antigen (M - Final Urine - Catheterized Urine Presumptive negative for streptococcus pneumoniae antigen, suggesting no current or recent infection. Infection due to Streptococcus pneumoniae cannot be ruled out since the antigen present in the sample may be below the detection limit of the test. 08/31/18 21:40 Legionella Antigen - Final Urine - Catheterized Urine Presumptive negative for Legionella pneumophila serogroup 1 antigen in urine, suggesting no recent or recurrent infection. Infection due to Legionella cannot be ruled out since other serogroups and species may cause disease, antigen may not be present in urine in early infection, and the level of antigen present in the urine may be below the detection limit of the test. Imaging: Abdomen/Pelvis CT 09/01/18 00:00 CONCLUSION: 1. Trace ascites, nonspecific. Also mild body wall edema. No organized or drainable fluid. 2. Diverticulosis of the sigmoid colon. No diverticulitis or other acute inflammatory changes. 3. Atherosclerosis of the aorta. Chest CT 09/01/18 00:00 CONCLUSION: 1. Bilateral pneumonia, especially right upper lobe. 2. Small bilateral pleural effusions; dependent/compressive atelectasis of both lower lobes. 3. Panchamber enlargement of the heart. Head CT 09/01/18 00:00 CONCLUSION: 1. No acute intracranial abnormality demonstrated. 2. Atrophy and chronic periventricular white matter changes. . Chest X-Ray 09/03/18 00:00 CONCLUSION: Slight improvement of right lung and left basilar density. Procedures: * 09/03/18 - medically extubated. * Cardioversion * central line placement * Intubated Assessment and Plan - Disease Oriented Problem List (1) Cardiomyopathy (2) Atrial fibrillation (3) V-tach (4) Atrial fibrillation with rapid ventricular response (5) Renal failure, acute on chronic (6) Shortness of breath on exertion (7) Hyperlipidemia (8) Respiratory failure (9) Metabolic acidosis (10) Shock liver (11) Bilateral pneumonia - Symptom Scale (1) Pain 0-10 Scale: Unable to quantify (2) Dyspnea 0-10 Scale: Unable to quantify Pertinent Non-Medical Issues: Psychosocial: . Has children and grandchildren he enjoys spending time with. Retired. Was in the . From [place], moved to [place] 6 years ago. Spiritual: Declines manager database support. Friends and family continue to pray for him. Legal:Patient is not capacitated to make his own health care decisions, uncertain if he will regain capacity. No written advance directives. According to [place] statutes, health care proxy decision making falls to his spouse, Jovita Ravi. Ethical issues impacting care:None. Important Contacts: Health care proxy, : Jovita Ravi: [phone] Prognosis: Will need to monitor over next few days for better prognostication. Code Status: Full Code Plan: * Patient is not capacitated to make his own health care decisions, uncertain if he will regain capacity. No written advance directives. According to [place] statutes, health care proxy decision making falls to his spouse, Jovita Ravi. * FULL CODE * Goals remain aggressive including FULL CODE/ reintubation if needed. * SYMPTOMS: pain and dyspnea: sedated on mech vent, no obvious signs of discomfort or SOB. No new medication recommendations at this time. * Palliative care will continue to follow throughout hsopital course to assist with symptom management and clarification of medical treatment goals. Attestation Attestation: To help prompt me to consider important information that might be impacting today's encounter and assessment, information from prior notes written by myself or my colleagues may have been "brought forward" into today's note. My signature on this note, however, is an attestation that I personally performed the exam, history, and/or decision-making noted today, and, unless otherwise indicated, the interactions with patient, family, and staff as well as the review of records all occurred today. I also attest that the listed assessment and stated plan reflect my best clinical judgment today based on the combination of historical information, prior notes, and today's exam/ interactions. When time spent is documented, it refers only to time spent today by the signer, or if indicated, combined time spent today by collaborating physician/nurse practitioner.
--- NOTE | 2018-09-03 18:24 | ECHRPT ---
Indication: SEPSIS POSS ENDOCARDITIS CONCLUSIONS Severely dilated left ventricle. The left ventricular systolic function is severely reduced with global hypokinesis and an estimated ejection fraction less than 20%. The left atrial size is mildly dilated. [id number] mitral valve regurgitation with a single central regurgitant jet. Moderate aortic valve regurgitation. There is a small echodensity on the right coronary cusp of the aortic valve which may be consistent with vegetation. Consider transesophageal echocardiogram for further evaluation if clincally indicated. The estimated pulmonary arterial pressure is 36 mmHg. There is mild tricuspid valve regurgitation. BP: / HR: Rhythm: MEASUREMENTS (Male / Female) Normal Values Technical Quality: 2D ECHO LV Diastolic Diameter PLAX 6.3 cm 4.2 - 5.9 / 3.9 - 5.3 cm LV Systolic Diameter PLAX 5.9 cm IVS Diastolic Thickness 1.1 cm 0.6 - 1.0 / 0.6 - 0.9 cm LVPW Diastolic Thickness 1.1 cm 0.6 - 1.0 / 0.6 - 0.9 cm LV Relative Wall Thickness 0.4 RV Internal Dim ED PLAX 3.6 cm LVOT Diameter 2.2 cm Aortic Root Diameter 3.0 cm LA Systolic Diameter LX 4.1 cm 3.0 - 4.0 / 2.7 - 3.8 cm M-MODE Aortic Root Diameter MM 3.3 cm LA Systolic Diameter MM 4.5 cm LA Ao Ratio MM 1.4 AV Cusp Separation MM 0.9 cm DOPPLER AV Peak Velocity 163.0 cm/s AV Peak Gradient 10.6 mmHg AV Mean Gradient 5.0 mmHg AV Velocity Time Integral 23.9 cm AI Peak Velocity 391.0 cm/s AI Peak Gradient 61.2 mmHg AI Pressure Half Time 273.0 ms LVOT Peak Velocity 102.0 cm/s LVOT Peak Gradient 4.2 mmHg LVOT Velocity Time Integral 15.1 cm AV Area Cont Eq vti 2.4 cm AV Area Cont Eq pk 2.4 cm Mitral E Point Velocity 102.0 cm/s Mitral A Point Velocity 40.5 cm/s Mitral E to A Ratio 2.5 TR Peak Velocity 253.0 cm/s TR Peak Gradient 25.6 mmHg Right Atrial Pressure 10.0 mmHg Pulmonary Artery Systolic Pressu 35.6 mmHg Right Ventricular Systolic Press 35.6 mmHg PV Peak Velocity 103.0 cm/s PV Peak Gradient 4.2 mmHg FINDINGS LEFT VENTRICLE Severely dilated left ventricle. Wall thickness is normal. The left ventricular systolic function is severely reduced with an estimated ejection fraction less than 20%. There is global left ventricular dysfunction. RIGHT VENTRICLE Normal right ventricular size and systolic function. LEFT ATRIUM The left atrial size is mildly dilated. RIGHT ATRIUM The right atrial size is normal. ATRIAL SEPTUM Normal atrial septal thickness without atrial level shunting by limited color doppler interrogation. AORTA The aortic root and proximal ascending aorta are normal in size on limited imaging. MITRAL VALVE Mild thickening of the mitral valve leaflets. Vrxekikx-if-hesyjn mitral valve regurgitation with a single central regurgitant jet. AORTIC VALVE Trileaflet aortic valve. Aortic valve sclerosis is present. No aortic stenosis. Moderate aortic valve regurgitation. There is a small echodensity on the right coronary cusp of the aortic valve which may be consistent with vegetation. TRICUSPID VALVE The estimated pulmonary arterial pressure is 36 mmHg. There is mild tricuspid valve regurgitation. PULMONARY VALVE No pulmonary valve regurgitation or stenosis. VESSELS The inferior vena cava is normal in size. PERICARDIUM No pericardial effusion. Tao Burks (Electronically Signed) Final Date:03 September 2018 18:24
[2018-09-03] MEDS: Latanoprost 0.005% Opth Drops 2.5 ML Bottle EACH EYE SCH (18:26)
[2018-09-04] MEDS: Azithromycin Inj 500 MG in Sodium Chlor 0.9% Inj 250 ML IV.SIG SCH (00:14)
[2018-09-04] MEDS: Insulin NovoLIN Regular Correctional Sugar Inj SQ SCH ×4 (00:15→17:42)
[2018-09-04] MEDS: Oral Hygiene Kit OROPHARYNG SCH ×4 (00:16→16:47)
[2018-09-04] MEDS: Chlorhexidine Gluconate 2% 1 Pack (2 Cloths) TOPICAL SCH (03:24)
[2018-09-04 03:59] LABS: Hemoglobin 11.8 gm/dL (13.0-17.0); Lymph # (Auto) 0.3 th/mm3 (1.0-4.8); Lymph % (Auto) 3.6 % (9.0-44.0); Mean Corpuscular HGB Conc 32.8 % (32.0-36.0); Mean Corpuscular Hemoglobin 29.8 pg (27.0-34.0); Mean Corpuscular Volume 90.8 fL (80.0-100.0); Mean Platelet Volume 8.9 fL (7.0-11.0); Mono # (Auto) 0.5 th/mm3 (0.0-0.9); Mono % (Auto) 5.6 % (0.0-8.0); Neut # (Auto) 8.1 th/mm3 (1.8-7.7); Neut % (Auto) 90.8 % (16.0-70.0); Platelet Count 190 th/mm3 (150-450); Red Blood Count 3.96 mil/mm3 (4.50-5.90); Red Cell Distribution Width 14.7 % (11.6-17.2)
[2018-09-04 04:05] LABS: INR 3.4 Ratio; Prothrombin Time 33.9 sec (9.8-11.6)
[2018-09-04 04:19] LABS: Albumin 3.1 g/dL (3.4-5.0); Anion Gap 15 meq/L (5-15); Aspartate Aminotransferase 898 U/L (15-37); Blood Urea Nitrogen 73 mg/dL (7-18); Carbon Dioxide 25.1 meq/L (21.0-32.0); Chloride 100 meq/L (98-107); Glomerular Filtration Rate 18 mL/min (>89); Glucose,Random 159 mg/dL (74-106); Magnesium 1.9 mg/dL (1.5-2.5); Sodium 140 meq/L (136-145)
[2018-09-04 04:28] LABS: Alanine Aminotransferase 2795 U/L (12-78); Alkaline Phosphatase 84 U/L (45-117); Total Protein 5.7 g/dL (6.4-8.2); Vancomycin,Random 18.1 Comment
[2018-09-04] MEDS: Aztreonam Inj 2 GM in Sodium Chloride 0.9% Inj 100 ML IV.SIG SCH (05:52)
[2018-09-04] MEDS: Hydrocortisone Sod Succinate 100 MG Vial IV.PUSH SCH ×3 (05:53→22:21)
[2018-09-04] MEDS: Levothyroxine 75 MCG Tablet PO SCH (05:54)
[2018-09-04 06:52] LABS: Lymphocytes 1 % (9-44); Metamyelocytes 1 % (0-1); Monocytes 8 % (0-8); Platelet Estimate Normal (Normal); Platelet Morphology Normal (Normal); Tallied Nucleated RBC 3 (0-0)
[2018-09-04] MEDS ORDERED: Potassium Chlor 40 mEq Premix 40 MEQ/100 ML PIGGYBACK ONE (07:55)
[2018-09-04] MEDS ORDERED: Mag Sulf 1 gm/100 ml Premix 200 ML IV.SIG ONE (07:56)
[2018-09-04] MEDS: Albumin Human 25% Inj 50 ML IV.SIG SCH (07:59)
[2018-09-04] MEDS: Famotidine PF Inj 20 MG/2 ML Vial IV.PUSH SCH ×2 (08:00→20:32)
[2018-09-04] MEDS: Chlorhexidine 0.12% Oral Kit 15 ML UDC OROPHARYNG SCH ×2 (08:01→20:31)
[2018-09-04] MEDS ORDERED: Dexmedetomidine Inj 200 MCG in Sodium Chlor 0.9% Inj 48 ML IV.CONT PRN (08:48)
[2018-09-04] MEDS ORDERED: Dexmedetomidine Inj 200 MCG/2 ML Vial IV.PUSH ONE (08:48)
--- NOTE | 2018-09-04 08:51 | US ---
EXAM DATE: 09/04/2018 8:37 AM EDT AGE/SEX: 83 years / Male INDICATIONS: Elevated lab values. CLINICAL DATA: This is the patient's initial encounter. Patient reports that signs and symptoms have been present for 1 day and indicates a pain score of 0/10. MEDICAL/SURGICAL HISTORY: Chronic obstructive pulmonary disease. Hypertension. Atrial fibrilla tion. Diabetes. Glaucoma. Hyperlipidemia. Hypothyroidism. Mitral regurgitation. Skin cancer. Tachycar deepika. 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 Sinus surgery. COMPARISON: [facility] [place] & [place]EL[place] W/O CONTRAST, 09/01/2018. . MEASUREMENTS: Liver:__ 13.8 cm. Common Bile Duct:__ 4mm. Right Kidney:__ 11.9 x 5.6 x 5.3 cm. FINDINGS: Liver: Liver is small, regularly shaped. There is no focal mass. Trace ascites is evident. Portal Vein: Hepatopedal flow seen in portal vein. Common Duct: No intraluminal mass or stone visualized. Gallbladder: Demonstrates no wall thickening or pericholecystic fluid. No stones visualized. Pancreas: The visualized portions are within normal limits Right Kidney: Normal echotexture and cortical thickness. No mass or hydronephrosis. Other: Trace ascites CONCLUSION: 1. Small nodular liver with trace ascites 2. No focal mass. Electronically signed by: Heraclio Marcus MD 09/04/2018 8:49 AM EDT
[2018-09-04] MEDS ORDERED: Vancomycin Inj 1,250 MG in Sodium Chlor 0.9% Inj 250 ML IV.SIG ONE (11:00)
--- NOTE | 2018-09-04 11:17 | CT ---
EXAM DATE: 09/04/2018 11:08 AM EDT AGE/SEX: 83 years / Male INDICATIONS: Altered mental status. CLINICAL DATA: This is the patient's initial encounter. Patient reports that signs and symptoms have been present for 1 day and indicates a pain score of Nonresponsive. MEDICAL/SURGICAL HISTORY: Chronic obstructive pulmonary disease. Diabetes. Hypertension. Afib, m itral regurgitation, skin cancer. CABG. Pacemaker. RADIATION DOSE: 45.23 CTDI (mGy) COMPARISON: [facility] – [place], [place] HEAD W/O CONTRAST, 09/01/2018. . TECHNIQUE: CT of the head without contrast. Using automated exposure control and adjustment of the mA and/or kV according to patient size, radiation dose was kept as low as reasonably achievable to ob tain optimal diagnostic quality images. DICOM format image data is available electronically for revi ew and comparison. FINDINGS: The study is degraded by motion artifact despite repeated imaging. Cerebrum: The ventricles are normal for age with moderate atrophic change. Chronic small vessel isch emic changes are again noted. No evidence of midline shift, mass lesion, hemorrhage or acute infarcti on. No extraaxial fluid collections are seen. Posterior Fossa: The cerebellum and brainstem are intact. The 4th ventricle is midline. The cerebe llopontine angle is unremarkable. Extracranial: The visualized portion of the orbits is intact. Skull: The calvaria is intact. No evidence of skull fracture. CONCLUSION: 1. Negative noncontrast head CT. 2. Suboptimal study secondary to motion artifact. . Electronically signed by: Tiago Jack MD 09/04/2018 11:16 AM EDT
--- NOTE | 2018-09-04 11:50 | P.PNFP ---
Subjective Interval history: Patient was seen at bedside this morning. Since yesterday afternoon patient has been extubated and is currently on nasal cannula. This morning patient patient was visited in ICU and appeared to be very confused. The patient kept repeating that he did not want surgery was very adamant that he did not want to go to the operating room. Several attempts to reorient and redirect were made were ultimately not successful. Patient appear to be agitated, confused, and would not let us examine him. Patient was able to deny that he is in any pain at the moment. Case discussed with pre press proofer Dr. Schilling. <Abdiaziz Fountain O - 09/04/18 15:26> Results - Labs Result diagrams: 09/05/18 04:35 09/05/18 04:35 <Tiago Le L - 09/05/18 14:47> Abnormal lab results 09/04/18 09/04/18 09/04/18 Range/Units 15:55 15:55 17:42 WBC (4.0-11.0) th/mm3 RBC 3.18 L (4.50-5.90) mil/mm3 Hgb 9.9 L (13.0-17.0) gm/dL Hct 29.1 L (39.0-51.0) % Neut % (Auto) (16.0-70.0) % Lymph % (Auto) (9.0-44.0) % Neut # (Auto) (1.8-7.7) th/mm3 Lymph # (Auto) (1.0-4.8) th/mm3 [place] # (Auto) (0.0-0.9) th/mm3 Ovalocytes (None) PT 33.5 H (9.8-11.6) sec APTT 53.2 H (23.4-31.7) sec ABG pH (7.380-7.420) ABG pCO2 (38-42) mmHg Hemoglobin (12.0-16.0) G/DL Potassium (3.5-5.1) meq/L BUN (7-18) mg/dL Creatinine (0.60-1.30) mg/dL Estimated GFR (>89) mL/min POC Glucose 162 H (68-110) mg/dl Random Glucose (74-106) mg/dL Calcium (8.5-10.1) mg/dL Total Bilirubin (0.2-1.0) mg/dL AST (15-37) U/L ALT (12-78) U/L Ammonia (11-32) mcmol/L Total Protein (6.4-8.2) g/dL Albumin (3.4-5.0) g/dL 09/04/18 09/05/18 09/05/18 Range/Units 18:45 00:23 04:35 WBC 13.5 H D (4.0-11.0) th/mm3 RBC 3.60 L (4.50-5.90) mil/mm3 Hgb 11.0 L (13.0-17.0) gm/dL Hct 33.4 L (39.0-51.0) % Neut % (Auto) 90.0 H (16.0-70.0) % Lymph % (Auto) 2.8 L (9.0-44.0) % Neut # (Auto) 12.1 H (1.8-7.7) th/mm3 Lymph # (Auto) 0.4 L (1.0-4.8) th/mm3 [place] # (Auto) 1.0 H (0.0-0.9) th/mm3 Ovalocytes 1+ H (None) PT (9.8-11.6) sec APTT (23.4-31.7) sec ABG pH 7.48 H (7.380-7.420) ABG pCO2 34 L (38-42) mmHg Hemoglobin 9.8 L (12.0-16.0) G/DL Potassium (3.5-5.1) meq/L BUN (7-18) mg/dL Creatinine (0.60-1.30) mg/dL Estimated GFR (>89) mL/min POC Glucose 127 H (68-110) mg/dl Random Glucose (74-106) mg/dL Calcium (8.5-10.1) mg/dL Total Bilirubin (0.2-1.0) mg/dL AST (15-37) U/L ALT (12-78) U/L Ammonia (11-32) mcmol/L Total Protein (6.4-8.2) g/dL Albumin (3.4-5.0) g/dL 09/05/18 09/05/18 09/05/18 Range/Units 04:35 04:35 08:09 WBC (4.0-11.0) th/mm3 RBC (4.50-5.90) mil/mm3 Hgb (13.0-17.0) gm/dL Hct (39.0-51.0) % Neut % (Auto) (16.0-70.0) % Lymph % (Auto) (9.0-44.0) % Neut # (Auto) (1.8-7.7) th/mm3 Lymph # (Auto) (1.0-4.8) th/mm3 [place] # (Auto) (0.0-0.9) th/mm3 Ovalocytes (None) PT 29.8 H (9.8-11.6) sec APTT (23.4-31.7) sec ABG pH (7.380-7.420) ABG pCO2 (38-42) mmHg Hemoglobin (12.0-16.0) G/DL Potassium 3.2 L (3.5-5.1) meq/L BUN 78 H (7-18) mg/dL Creatinine 3.36 H (0.60-1.30) mg/dL Estimated GFR 18 L (>89) mL/min POC Glucose (68-110) mg/dl Random Glucose 142 H (74-106) mg/dL Calcium 8.1 L (8.5-10.1) mg/dL Total Bilirubin 9.4 H (0.2-1.0) mg/dL AST 300 H (15-37) U/L ALT 1793 H (12-78) U/L Ammonia Less than 10 L (11-32) mcmol/L Total Protein 5.4 L (6.4-8.2) g/dL Albumin 2.7 L (3.4-5.0) g/dL Short CBC 09/04/18 09/05/18 Range/Units 15:55 04:35 WBC 8.8 13.5 H D (4.0-11.0) th/mm3 Hgb 9.9 L 11.0 L (13.0-17.0) gm/dL Hct 29.1 L 33.4 L (39.0-51.0) % Plt Count 169 200 (150-450) th/mm3 BMP 09/05/18 04:35 Sodium 143 Potassium 3.2 L Chloride 102 Carbon Dioxide 29.8 BUN 78 H Creatinine 3.36 H Calcium 8.1 L Liver Function 09/05/18 Range/Units 04:35 Total Bilirubin 9.4 H (0.2-1.0) mg/dL AST 300 H (15-37) U/L ALT 1793 H (12-78) U/L Alkaline Phosphatase 83 (45-117) U/L Albumin 2.7 L (3.4-5.0) g/dL <Tiago Le L - 09/05/18 14:47> Abnormal lab results 09/03/18 09/03/18 09/04/18 Range/Units 17:15 23:55 03:40 RBC 3.96 L (4.50-5.90) mil/mm3 Hgb 11.8 L (13.0-17.0) gm/dL Hct 36.0 L (39.0-51.0) % Neut % (Auto) 90.8 H (16.0-70.0) % Lymph % (Auto) 3.6 L (9.0-44.0) % Neut # (Auto) 8.1 H (1.8-7.7) th/mm3 Lymph # (Auto) 0.3 L (1.0-4.8) th/mm3 Seg Neuts % (Manual) 89 H (16-70) % Lymphocytes % (Manual) 1 L (9-44) % Abs Neuts (Manual) 8.2 H (1.8-7.7) th/mm3 Nucleated RBCs/100 WBC 3 H (0-0) /100 WBC PT (9.8-11.6) sec Potassium (3.5-5.1) meq/L BUN (7-18) mg/dL Creatinine (0.60-1.30) mg/dL Estimated GFR (>89) mL/min POC Glucose 181 H 139 H (68-110) mg/dl Random Glucose (74-106) mg/dL Calcium (8.5-10.1) mg/dL Total Bilirubin (0.2-1.0) mg/dL Direct Bilirubin (0.0-0.2) mg/dL Indirect Bilirubin (0.0-0.8) mg/dL AST (15-37) U/L ALT (12-78) U/L Total Protein (6.4-8.2) g/dL Albumin (3.4-5.0) g/dL 09/04/18 09/04/18 09/04/18 Range/Units 03:40 03:40 05:52 RBC (4.50-5.90) mil/mm3 Hgb (13.0-17.0) gm/dL Hct (39.0-51.0) % Neut % (Auto) (16.0-70.0) % Lymph % (Auto) (9.0-44.0) % Neut # (Auto) (1.8-7.7) th/mm3 Lymph # (Auto) (1.0-4.8) th/mm3 Seg Neuts % (Manual) (16-70) % Lymphocytes % (Manual) (9-44) % Abs Neuts (Manual) (1.8-7.7) th/mm3 Nucleated RBCs/100 WBC (0-0) /100 WBC PT 33.9 H D (9.8-11.6) sec Potassium 3.0 L (3.5-5.1) meq/L BUN 73 H (7-18) mg/dL Creatinine 3.33 H (0.60-1.30) mg/dL Estimated GFR 18 L (>89) mL/min POC Glucose 145 H (68-110) mg/dl Random Glucose 159 H (74-106) mg/dL Calcium 8.0 L (8.5-10.1) mg/dL Total Bilirubin 6.4 H (0.2-1.0) mg/dL Direct Bilirubin 4.5 H (0.0-0.2) mg/dL Indirect Bilirubin 1.9 H (0.0-0.8) mg/dL AST 898 H (15-37) U/L ALT 2795 H (12-78) U/L Total Protein 5.7 L (6.4-8.2) g/dL Albumin 3.1 L (3.4-5.0) g/dL Short CBC 09/04/18 Range/Units 03:40 WBC 9.0 (4.0-11.0) th/mm3 Hgb 11.8 L (13.0-17.0) gm/dL Hct 36.0 L (39.0-51.0) % Plt Count 190 (150-450) th/mm3 BMP 09/04/18 03:40 Sodium 140 Potassium 3.0 L Chloride 100 Carbon Dioxide 25.1 BUN 73 H Creatinine 3.33 H Calcium 8.0 L Liver Function 09/04/18 09/04/18 Range/Units 03:40 03:40 Total Bilirubin 6.4 H Cancelled (0.2-1.0) mg/dL Direct Bilirubin 4.5 H Cancelled (0.0-0.2) mg/dL AST 898 H (15-37) U/L ALT 2795 H (12-78) U/L Alkaline Phosphatase 84 (45-117) U/L Albumin 3.1 L (3.4-5.0) g/dL <Abdiaziz Fountain - 09/04/18 11:50> - Imaging Impressions Chest X-Ray 09/05/18 05:00 CONCLUSION: Interval extubation. Slight interval worsening in aeration. Abdomen X-Ray 09/05/18 12:26 CONCLUSION: Feeding tube is in place with the tip in the distal stomach. <Tiago Le L - 09/05/18 14:47> Impressions Head CT 09/04/18 00:00 CONCLUSION: 1. Negative noncontrast head CT. 2. Suboptimal study secondary to motion artifact. . Liver Ultrasound 09/04/18 00:00 CONCLUSION: 1. Small nodular liver with trace ascites 2. No focal mass. <Abdiaziz Fountain - 09/04/18 11:50> Physical Exam Vital signs: Vital Signs 09/04/18 15:00 09/04/18 15:15 09/04/18 15:30 Temperature Pulse Rate 105 H 101 H 105 H Respiratory Rate 25 H 25 H 21 Blood Pressure 109/55 L 96/58 L 92/53 L Pulse Oximetry 09/04/18 15:45 09/04/18 16:00 09/04/18 16:15 Temperature 97.3 F L Pulse Rate 96 H 103 H 106 H Respiratory Rate 11 L 24 29 H Blood Pressure 87/51 L 93/63 L 90/66 L Pulse Oximetry 09/04/18 16:30 09/04/18 16:45 09/04/18 17:00 Temperature Pulse Rate 107 H 105 H 112 H Respiratory Rate 25 H 20 22 Blood Pressure 104/65 97/53 L 114/68 Pulse Oximetry 09/04/18 17:15 09/04/18 17:30 09/04/18 17:45 Temperature Pulse Rate 110 H 109 H 110 H Respiratory Rate 20 22 20 Blood Pressure 104/59 L 100/59 L 87/60 L Pulse Oximetry 95 96 09/04/18 18:00 09/04/18 18:15 09/04/18 18:31 Temperature Pulse Rate 112 H 106 H 102 H Respiratory Rate 24 9 L 10 L Blood Pressure 103/62 93/55 L 107/51 L Pulse Oximetry 96 94 L 93 L 09/04/18 18:45 09/04/18 18:46 09/04/18 18:49 Temperature Pulse Rate 103 H 102 H 105 H Respiratory Rate 10 L 9 L 19 Blood Pressure 71/41 L 81/52 L 82/51 L Pulse Oximetry 92 L 93 L 96 09/04/18 19:00 09/04/18 19:15 09/04/18 19:30 Temperature Pulse Rate 111 H 107 H 101 H Respiratory Rate 18 9 L 9 L Blood Pressure 105/61 96/63 L 89/60 L Pulse Oximetry 96 95 95 09/04/18 19:45 09/04/18 20:00 09/04/18 20:15 Temperature 97.6 F Pulse Rate 94 H 104 H 100 H Respiratory Rate 9 L 7 L 8 L Blood Pressure 85/57 L 99/57 L 96/60 L Pulse Oximetry 95 95 96 09/04/18 20:30 09/04/18 20:45 09/04/18 20:55 Temperature Pulse Rate 101 H 107 H 106 H Respiratory Rate 8 L 14 16 Blood Pressure 99/59 L 102/62 Pulse Oximetry 96 96 98 09/04/18 21:00 09/04/18 21:15 09/04/18 21:30 Temperature Pulse Rate 112 H 120 H 118 H Respiratory Rate 16 20 21 Blood Pressure 90/68 L 99/67 L 102/69 Pulse Oximetry 99 95 95 09/04/18 21:45 09/04/18 22:00 09/04/18 22:15 Temperature Pulse Rate 112 H 113 H 108 H Respiratory Rate 17 19 9 L Blood Pressure 109/61 109/65 97/65 L Pulse Oximetry 95 96 96 09/04/18 22:30 09/04/18 22:45 09/04/18 23:00 Temperature Pulse Rate 112 H 110 H 114 H Respiratory Rate 16 18 19 Blood Pressure 104/68 106/66 108/66 Pulse Oximetry 95 95 96 09/04/18 23:15 09/04/18 23:30 09/04/18 23:45 Temperature Pulse Rate 108 H 113 H 111 H Respiratory Rate 21 19 16 Blood Pressure 116/66 115/59 L 93/60 L Pulse Oximetry 96 98 95 09/05/18 00:00 09/05/18 00:15 09/05/18 00:30 Temperature Pulse Rate 119 H 111 H 114 H Respiratory Rate 22 17 18 Blood Pressure 103/72 108/72 104/72 Pulse Oximetry 96 96 97 09/05/18 00:45 09/05/18 01:00 09/05/18 01:15 Temperature Pulse Rate 110 H 115 H 113 H Respiratory Rate 18 16 17 Blood Pressure 114/76 117/71 104/70 Pulse Oximetry 97 97 96 09/05/18 01:30 09/05/18 01:45 09/05/18 02:00 Temperature Pulse Rate 105 H 105 H 109 H Respiratory Rate 20 18 19 Blood Pressure 106/73 99/66 L 103/66 Pulse Oximetry 97 97 96 09/05/18 02:15 09/05/18 02:30 09/05/18 02:45 Temperature Pulse Rate 112 H 110 H 104 H Respiratory Rate 17 14 10 L Blood Pressure 111/64 94/63 L 103/61 Pulse Oximetry 94 L 95 96 09/05/18 03:00 09/05/18 03:15 09/05/18 03:30 Temperature Pulse Rate 101 H 112 H 111 H Respiratory Rate 10 L 19 19 Blood Pressure 102/50 L 101/63 95/68 L Pulse Oximetry 96 95 97 09/05/18 03:45 09/05/18 04:00 09/05/18 04:15 Temperature 97.8 F Pulse Rate 110 H 113 H 110 H Respiratory Rate 18 19 16 Blood Pressure 107/66 122/66 119/62 Pulse Oximetry 94 L 95 96 09/05/18 04:30 09/05/18 04:45 09/05/18 05:00 Temperature Pulse Rate 103 H 110 H 114 H Respiratory Rate 20 16 18 Blood Pressure 99/62 L 118/67 114/68 Pulse Oximetry 95 95 95 09/05/18 05:15 09/05/18 05:30 09/05/18 05:45 Temperature Pulse Rate 111 H 112 H 110 H Respiratory Rate 19 Blood Pressure 118/62 130/69 122/68 Pulse Oximetry 95 94 L 70 L 09/05/18 06:00 09/05/18 06:15 09/05/18 06:30 Temperature Pulse Rate 116 H 112 H 117 H Respiratory Rate Blood Pressure 123/63 109/56 L 111/60 Pulse Oximetry 100 90 L 09/05/18 07:00 09/05/18 08:00 09/05/18 08:02 Temperature 98.3 F Pulse Rate 120 H 115 H 113 H Respiratory Rate 20 18 Blood Pressure 118/65 118/65 Pulse Oximetry 96 96 09/05/18 08:30 09/05/18 09:00 09/05/18 10:00 Temperature Pulse Rate 116 H 119 H 119 H Respiratory Rate 20 Blood Pressure 102/61 Pulse Oximetry 91 L 09/05/18 11:00 Temperature Pulse Rate 111 H Respiratory Rate Blood Pressure Pulse Oximetry Intake & Output 09/04/18 09/05/18 09/05/18 18:59 06:59 18:59 Intake Total 1138.5 / 1138.5 500 / 500 350 / 350 Output Total 1125 / 1125 1500 / 1500 Balance 13.5 / 13.5 -1000 / -1000 350 / 350 Weight 77.2 kg Intake: IV 1138.5 / 1138.5 500 / 500 350 / 350 KCl 40 mEq Premix Inj 40 meq In 100 / 100 100 ml @ 0 mls/hr .ROUTE .STK- MED ONE Rx#:[id number] Cordarone Inj 450 MG In D5W Inj 250 / 250 250 / 250 250 / 250 241 ML @ 1 MG/MIN 33.33 mls/hr IV.CONT TITRATE PRN Rx#: [id number] Dobutrex Inj 500 MG In D5W Inj 125 / 125 210 ML @ 2.5 MCG/KG/MIN 5.17 mls/hr IV.CONT .Q24H [facility] Rx#: [id number] Flexbumin 25% Inj 50 ML @ 50 50 / 50 mls/hr IV.SIG Q12H [facility] Rx#: [id number] Azithromycin Inj 500 MG In NS 250 / 250 Inj 250 ML @ 250 mls/hr IV.SIG Q24H [facility] Rx#:[id number] Magnesium Sulfate 1 gm/D5W 100 200 / 200 ml Premix 200 ML @ 0 mls/hr IV. SIG .STK-MED ONE Rx#:[id number] Vitamin K Inj 10 MG In D5W Inj 51 / 51 50 ML @ 102 mls/hr IV.SIG ONCE ONE Rx#:[id number] KCl 40 mEq Premix Inj 40 meq In 100 / 100 100 ml @ 25 mls/hr IV.SIG Q4H [facility] Rx#:[id number] Vancomycin Inj 1,250 MG In NS 262.5 / 262.5 Inj 250 ML @ 250 mls/hr IV.SIG ONCE ONE Rx#:[id number] Rocephin Inj 2,000 MG In NS Inj 100 / 100 100 ML @ 200 mls/hr IV.SIG Q24H [facility] Rx#:[id number] Oral 0 / 0 Output: Urine Amount (Catheter) 1125 / 1125 1500 / 1500 Indwelling Urethral Catheter 1125 / 1125 1500 / 1500 Other: Bladder Irrigation Fluid - Amount Drained Indwelling Urethral Catheter 120 Date of Last Bowel Movement 08/29/18 08/29/18 08/29/18 # Bowel Movements 0 <Tiago Le L - 09/05/18 14:47> Vital Signs 09/03/18 12:00 09/03/18 13:00 09/03/18 14:00 Temperature 98.1 F Pulse Rate 93 H 90 87 Respiratory Rate 23 17 21 Blood Pressure 121/71 119/64 115/68 Pulse Oximetry 97 96 97 09/03/18 15:00 09/03/18 16:00 09/03/18 16:27 Temperature 98.7 F Pulse Rate 87 88 86 Respiratory Rate 18 21 18 Blood Pressure 111/70 117/72 Pulse Oximetry 97 96 09/03/18 17:00 09/03/18 18:00 09/03/18 19:00 Temperature Pulse Rate 94 H 87 91 H Respiratory Rate 20 24 20 Blood Pressure 124/66 108/67 112/70 Pulse Oximetry 96 96 96 09/03/18 20:00 09/03/18 21:00 09/03/18 22:00 Temperature 97.4 F L Pulse Rate 91 H 98 H 101 H Respiratory Rate 24 26 H 19 Blood Pressure 120/69 115/73 115/73 Pulse Oximetry 95 94 L 94 L 09/03/18 23:00 09/04/18 00:00 09/04/18 01:00 Temperature 97.8 F Pulse Rate 105 H 106 H 94 H Respiratory Rate 16 22 18 Blood Pressure 124/66 114/73 107/70 Pulse Oximetry 95 95 93 L 09/04/18 02:00 09/04/18 03:00 09/04/18 03:01 Temperature Pulse Rate 88 98 H 91 H Respiratory Rate 15 23 19 Blood Pressure 117/64 126/71 Pulse Oximetry 94 L 93 L 93 L 09/04/18 04:00 09/04/18 05:00 09/04/18 06:00 Temperature 97.7 F Pulse Rate 98 H 104 H 120 H Respiratory Rate 19 21 22 Blood Pressure 119/74 136/78 100/72 Pulse Oximetry 92 L 95 92 L Intake & Output 09/03/18 09/04/18 09/04/18 18:59 06:59 18:59 Intake Total 540 / 540 500 / 500 600 / 600 Output Total 1700 / 1700 1775 / 1775 Balance -1160 / -1160 -1275 / -1275 600 / 600 Weight 77.6 kg Intake: IV 540 / 540 500 / 500 600 / 600 KCl 40 mEq Premix Inj 40 meq In 100 / 100 100 ml @ 0 mls/hr .ROUTE .STK- [facility] Rx#:[id number] Cordarone Inj 450 MG In D5W Inj 250 / 250 250 / 250 241 ML @ 1 MG/MIN 33.33 mls/hr IV.CONT TITRATE PRN Rx#: [id number] Pitressin Inj 40 UNIT In D5W 0 / 0 Inj 98 ML @ 0.04 UNITS/MIN 6 mls/hr IV.CONT CONT [facility] Rx#: [id number] Flexbumin 25% Inj 50 ML @ 50 50 / 50 50 / 50 50 / 50 mls/hr IV.SIG Q12H [facility] Rx#: [id number] Azithromycin Inj 500 MG In NS 250 / 250 Inj 250 ML @ 250 mls/hr IV.SIG Q24H [facility] Rx#:[id number] Azactam Inj 2 GM In NS Inj 100 200 / 200 200 / 200 ML @ 200 mls/hr IV.SIG Q8H [facility] Rx#:[id number] Magnesium Sulfate 1 gm/D5W 100 200 / 200 ml Premix 200 ML @ 0 mls/hr IV. SIG .STK-[facility] Rx#:[id number] Levophed Inj 4 MG In NS Inj 246 0 / 0 ML @ 2 MCG/MIN 7.5 mls/hr IV. SIG TITRATE PRN Rx#:[id number] fentaNYL 10 mcg/mL Premix Drip 40 / 40 2,500 mcg In 250 ml @ 50 MCG/HR 5 mls/hr IV.SIG TITRATE PRN Rx #:[id number] Output: Urine Amount (Catheter) 1700 / 1700 1775 / 1775 Indwelling Urethral Catheter 1699 1700 177 / 177 Other: Date of Last Bowel Movement 08/29/18 09/29/18 <Abdiaziz Fountain - 09/04/18 11:50> Narrative: General: Elderly gentleman lying comfortably in bed on nasal cannula. Patient was confused, disoriented, and refused most of the physical exam. Cardio: Would not allow himself to be auscultated. Patient has subclavian central line in place. Pulmonary: Would not allow himself to be auscultated. GI: Appear distended but would not allow palpation. Extremities: No edema noted in lower extremities. Patient was moving all 4 extremities at time of interview. Neuro: Patient was awake and alert but not oriented. Patient knew his name but did not understand the current situation. He continued to mention that he did not want a surgery even after he was being told that that was not while over there. Gentleman pleasant but confused. No facial asymmetry or motor deficits or apparent on presentation. : kiser catheter in place, <Abdiaziz Fountain - 09/04/18 15:26> - Urinary Catheter Management Indwelling Urethral Catheter Cath placed during this visit: no <Tiago Le - 09/05/18 14:47> yes <Abdiaziz Fountain - 09/04/18 15:26> Reason for continuing: Hourly intake/output <Abdiaziz Fountain 09/04/18 11:50> Insertion date: 08/31/18 <Abdiaziz Fountain 09/04/18 11:50> Insertion time: 22:00 <Abdiaziz Fountain 09/04/18 11:50> Assessment and Plan - Assessment (1) Encephalopathy acute Code(s): G93.40 - Encephalopathy, unspecified Status: Acute (2) Streptococcus viridans infection Code(s): A49.1 - Streptococcal infection, unspecified site Status: Acute (3) Cardiogenic shock Code(s): R57.0 - Cardiogenic shock Status: Acute (4) Respiratory failure Code(s): J96.90 - Respiratory failure, unspecified, unspecified whether with hypoxia or hypercapnia Status: Acute (5) Shock liver Code(s): K72.00 - Acute and subacute hepatic failure without coma Status: Acute (6) Bilateral pneumonia Code(s): J18.9 - Pneumonia, unspecified organism Status: Acute (7) Renal failure, acute on chronic Code(s): N17.9 - Acute kidney failure, unspecified; N18.9 - Chronic kidney disease, unspecified Status: Acute (8) Atrial fibrillation with rapid ventricular response Code(s): I48.91 - Unspecified atrial fibrillation Status: Acute (9) Cardiomyopathy Code(s): I42.9 - Cardiomyopathy, unspecified Status: Chronic (10) V-tach Code(s): I47.2 - Ventricular tachycardia Status: Chronic (11) Hyperlipidemia Code(s): E78.5 - Hyperlipidemia, unspecified Status: Acute (12) Hypothyroidism Code(s): E03.9 - Hypothyroidism, unspecified Status: Chronic <Tiago Le - 09/05/18 14:47> (1) Encephalopathy acute Code(s): G93.40 - Encephalopathy, unspecified Status: Acute Plan: Patient was found to be confused and disoriented on examination this morning. Patient had previous INR of 9 that is since been downtrending and with therapeutic range. Possible intracranial bleeding cannot be ruled out. -CT of the head showed no acute bleed -Patient now on ceftriaxone -Follow-up neurology consult (2) Streptococcus viridans infection Code(s): A49.1 - Streptococcal infection, unspecified site Status: Acute Plan: ID consulted, appreciate recommendations Blood culture 08/31 11/04 positive for strep viridans Repeat blood cultures pending Per infectious disease stop Vanco and Azactam Begin Rocephin Trend white count (3) Cardiogenic shock Code(s): R57.0 - Cardiogenic shock Status: Acute Plan: 83-year-old male with a history of A. fib , hypertension, hyperlipidemia, ICD presented to the ED with worsening shortness of breath. Originally admitted for A.fib with RVR. Patient transferred to the ICU on 08/31 for respiratory failure in the setting of cardiogenic shock. Currently intubated, mechanically ventilated. Welfare Service Aide managing. -s/p electrical cardioversion 09/01, patient successfully converted to sinus rhythm. Patient had 7 beat run of V. tach this morning that may have possibly been the reason for conversion back in to atrial fibrillation -Echo on 09/03 showed an EF of 20%, severe mitral regurgitation, aortic regurgitation, question of vegetation on aortic valve leaflet. -Phenylephrine titrated off and levophed discontinued -Dobutamine discontinued, patient currently not on any inotrope or pressors -Per pre press proofer hold home PO amiodarone and metoprolol -Continue IV Amiodarone 1mg/min -Follow up with cardiology recommendations (4) Respiratory failure Code(s): J96.90 - Respiratory failure, unspecified, unspecified whether with hypoxia or hypercapnia Status: Acute Plan: Patient currently extubated and satting 93% on 4 L nasal cannula. -Lactic acid trending down -Last ABG on 09/02 demonstrated pH of 7.47, HCO3 of 23, CO2 32 -DuoNeb every 4 hours -Chest CT suggestive of pneumonia, patient currently on broad-spectrum antibiotics (5) Shock liver Code(s): K72.00 - Acute and subacute hepatic failure without coma Status: Acute Plan: Liver enzymes trending down per continue to monitor s/p Vit. K x2 INR improved to 3.4, will need anticoagulation once patient drops below 3 (6) Bilateral pneumonia Code(s): J18.9 - Pneumonia, unspecified organism Status: Acute Plan: CT of the chest demonstrated bilateral pneumonia particularly in the right upper lobe. Patient began on broad-spectrum antibiotics. Sputum Gram stain showed multiple white blood cells but no organisms. Patient status post 1 dose of vancomycin. -Strep pneumoniae antigen negative -Legionella antigen negative -Continue oxygenation via nasal cannula -DuoNeb every 4 hours scheduled and as needed -Continue azithromycin -Discontinue aztreonam per ID (7) Renal failure, acute on chronic Code(s): N17.9 - Acute kidney failure, unspecified; N18.9 - Chronic kidney disease, unspecified Status: Acute Plan: Nephrology on board Likely due to ATN due to hypoperfusion, possible sepsis Discontinued Bicarb drip continue Bumex 1mg IV q12h (8) Atrial fibrillation with rapid ventricular response Code(s): I48.91 - Unspecified atrial fibrillation Status: Acute Plan: Cardiology following s/p Cardioversion, patient now in atrial fibrillation again. INR 3.4. Continue amiodarone (9) Cardiomyopathy Code(s): I42.9 - Cardiomyopathy, unspecified Status: Chronic Plan: Echo 2D echo on 09/03 with LVEF 20%, severe mitral regurgitation, aortic regurgitation, question of vegetation on aortic valve leaflet. * Please see plan above for cardiogenic shock (10) V-tach Code(s): I47.2 - Ventricular tachycardia Status: Chronic Plan: s/p ICD changed on 07/21/18. Patient had 7 beat run of V. tach on the morning of 09/04. (11) Hyperlipidemia Code(s): E78.5 - Hyperlipidemia, unspecified Status: Acute Plan: Hold fenofibrate given acute LFT elevation (12) Hypothyroidism Code(s): E03.9 - Hypothyroidism, unspecified Status: Chronic Plan: TSH within normal limits, free T4 just above the upper limit of normal. -Continue levothyroxine 75mcg daily <Abdiaziz Fountain O - 09/04/18 15:00> - Attending Attestation The exam, history, and the medical decision-making described in the above note were completed with the assistance of the resident physician. I reviewed and agree with the findings presented. I attest that I discussed and evaluated the patient with the resident. <Tiago Le - 09/05/18 14:47> <Abdiaziz Fountain O - Last Filed: 09/04/18 15:00> (7) Renal failure, acute on chronic Qualifiers: Acute renal failure type: unspecified Chronic kidney disease stage: unspecified stage Qualified Code(s): N17.9 - Acute kidney failure, unspecified ; N18.9 - Chronic kidney disease, unspecified <Tiago Le - Last Filed: 09/05/18 14:47> (7) Renal failure, acute on chronic Qualifiers: Acute renal failure type: unspecified Chronic kidney disease stage: unspecified stage Qualified Code(s): N17.9 - Acute kidney failure, unspecified ; N18.9 - Chronic kidney disease, unspecified <Abdiaziz Fountain - Last Filed: 09/04/18 15:00> (7) Renal failure, acute on chronic Qualifiers: Acute renal failure type: unspecified Chronic kidney disease stage: unspecified stage Qualified Code(s): N17.9 - Acute kidney failure, unspecified ; N18.9 - Chronic kidney disease, unspecified <Tiago Le - Last Filed: 09/05/18 14:47> (7) Renal failure, acute on chronic Qualifiers: Acute renal failure type: unspecified Chronic kidney disease stage: unspecified stage Qualified Code(s): N17.9 - Acute kidney failure, unspecified ; N18.9 - Chronic kidney disease, unspecified
--- NOTE | 2018-09-04 13:37 | P.PNCC ---
Subjective Subjective Remarks/Hospital Course: 08/31: Patient is 83-year-old male with a history of A. fib on Xarelto, cardiomyopathy with ejection fraction 17%, moderate MR, moderate AI, hypertension, hyperlipidemia, ventricular tachycardia history with, ICD, COPD who was admitted to the [facility] service on 08/28/2018 for worsening shortness of breath. He was admitted with a diagnosis of COPD, atrial fibrillation with RVR and cardiology was consulted. I am unable to locate echo report but according to [facility] admit note Echo 10/2017, EF=17%, LVH, biatrial enlargement,, Mod MR, Mod AI, Mod TR, aortic cusp thickening. Patient has chronic A. fib for which he takes Xarelto, metoprolol, and amiodarone. This was continued and patient was also placed on Cardizem infusion for rate control. Plan was for EMILEE guided cardioversion tomorrow Patient was noted to be increasingly short of breath over the day. He received some Ativan around 10 AM today for presumed anxiety. According to bedside RN patient had labored breathing since the beginning of her shift at around 7 and even prior. Patient became increasingly lethargic with worsening hypoxia shortness of breath. Stat ABG showed 7.07/29/58 with oxygen saturation of 78 and base excess -20.5. A Halicat was called at about 8 pm and patient was moved to the [facility]. I immediately evaluated the patient. Patient was barely responsive tachypneic. Blood pressure was not recordable but pulse was palpable. I ordered stat transfusion of 1 L normal saline bolus, 2 Amps of bicarb to at least partially corrective acidosis prior to intubation and also started Levophed infusion peripherally. After systolic blood pressure was in 60s I proceeded with endotracheal intubation due to hypoxia and lack of airway protection. Patient was intubated and placed on mechanical ventilation. Patient remained in atrial fibrillation RVR, the shock appears to be severe cardiogenic shock worsened by severe acidosis. Levophed was rapidly increased to 40 mcg/min, additional pressors added with Tien-Synephrine and dopamine. I emergently placed a right subclavian central line and also right femoral artery line. Once arterial line is placed and flow Trac monitoring is initiated. I have given digoxin 0.5 mg IV x1 for rate control, start amiodarone bolus and infusion for rate control. Start dobutamine infusion as the patient has an EF of 17%. Duque cultures will be sent a Escamilla catheter will be inserted as the patient is almost anuric. Broad-spectrum antibiotics with Azactam Flagyl and vancomycin. Chest x-ray shows persistent left lower lobe and new right lower lobe infiltrates. This appears to be a combination of severe cardiogenic and septic shock and prognosis is guarded at this time 09/01: Remains orally intubated on mechanical ventilation. This morning at the time of my evaluation patient was easily arousable following commands. He was on phenylephrine/Levophed/dobutamine for pressor support/inotropic support as well as amiodarone gtt. Over the course of the day his phenylephrine was titrated off and Levophed was decreased to 5 mics per minute after starting vasopressin gtt 0.04 units/min. After discussion with Dr. felix proceeded with electrical cardioversion to convert him out of his A. fib. Patient was successfully cardioverted to sinus rhythm. He has been essentially anuric. 09/02: Sedated, arousable, orally intubated on mechanical ventilation. On dobutamine 2.5 mics per KG per minute and amiodarone 1 mg/min. Bicarb drip discontinued. Lactic acid improving. INR elevated this morning for which vitamin K 10 mg IV given. No evidence of active bleeding. 11/03: Arousable off sedation, orally intubated on mechanical ventilation at the time of my evaluation this morning. On dobutamine 2.5 mics per KG per minute and amiodarone gtt. Fentanyl stopped. 11/04: Disoriented and confused overnight. Precedex started earlier however became hypotensive and hence was stopped. Dobutamine stopped earlier this morning due to run of V. tach following which patient converted into A. fib. No hypotension. Continues to make urine. On nasal cannula. Electrolytes being replaced. Head CT negative for bleed. Will need anticoagulation with heparin for A. fib started once INR drops below 3. INR today 3.4. 2D echo done on 09/03 4 1 blood culture positive for strep viridans showed aortic valve vegetation suspected, EMILEE recommended. Objective Vital Signs / I&O: Vital Signs 09/03/18 14:00 09/03/18 15:00 09/03/18 16:00 Temperature 98.7 F Pulse Rate 87 87 88 Respiratory Rate 21 18 21 Blood Pressure 115/68 111/70 117/72 Pulse Oximetry 97 97 96 09/03/18 16:27 09/03/18 17:00 09/03/18 18:00 Temperature Pulse Rate 86 94 H 87 Respiratory Rate 18 20 24 Blood Pressure 124/66 108/67 Pulse Oximetry 96 96 09/03/18 19:00 09/03/18 20:00 09/03/18 21:00 Temperature 97.4 F L Pulse Rate 91 H 91 H 98 H Respiratory Rate 20 24 26 H Blood Pressure 112/70 120/69 115/73 Pulse Oximetry 96 95 94 L 09/03/18 22:00 09/03/18 23:00 09/04/18 00:00 Temperature 97.8 F Pulse Rate 101 H 105 H 106 H Respiratory Rate 19 16 22 Blood Pressure 115/73 124/66 114/73 Pulse Oximetry 94 L 95 95 09/04/18 01:00 09/04/18 02:00 09/04/18 03:00 Temperature Pulse Rate 94 H 88 98 H Respiratory Rate 18 15 23 Blood Pressure 107/70 117/64 Pulse Oximetry 93 L 94 L 93 L 09/04/18 03:01 09/04/18 04:00 09/04/18 05:00 Temperature 97.7 F Pulse Rate 91 H 98 H 104 H Respiratory Rate 19 19 21 Blood Pressure 126/71 119/74 136/78 Pulse Oximetry 93 L 92 L 95 09/04/18 06:00 09/04/18 07:00 09/04/18 08:00 Temperature Pulse Rate 120 H 122 H 121 H Respiratory Rate 22 Blood Pressure 100/72 Pulse Oximetry 92 L 09/04/18 10:00 09/04/18 11:00 09/04/18 12:00 Temperature Pulse Rate 109 H 111 H 99 H Respiratory Rate Blood Pressure Pulse Oximetry 09/04/18 13:00 09/04/18 13:12 Temperature Pulse Rate 106 H 106 H Respiratory Rate 22 Blood Pressure Pulse Oximetry 97 Intake & Output 09/03/18 09/04/18 09/04/18 18:59 06:59 18:59 Intake Total 540 / 540 500 / 500 600 / 600 Output Total 1700 / 1700 1775 / 1775 Balance -1160 / -1160 -1275 / -1275 600 / 600 Weight 77.6 kg Intake: IV 540 / 540 500 / 500 600 / 600 KCl 40 mEq Premix Inj 40 meq In 100 / 100 100 ml @ 0 mls/hr .ROUTE .STK- MED ONE Rx#:[id number] Cordarone Inj 450 MG In D5W Inj 250 / 250 250 / 250 241 ML @ 1 MG/MIN 33.33 mls/hr IV.CONT TITRATE PRN Rx#: [id number] Pitressin Inj 40 UNIT In D5W 0 / 0 Inj 98 ML @ 0.04 UNITS/MIN 6 mls/hr IV.CONT CONT ANNITA Rx#: [id number] Flexbumin 25% Inj 50 ML @ 50 50 / 50 50 / 50 50 / 50 mls/hr IV.SIG Q12H ANNITA Rx#: [id number] Azithromycin Inj 500 MG In NS 250 / 250 Inj 250 ML @ 250 mls/hr IV.SIG Q24H ANNITA Rx#:[id number] Azactam Inj 2 GM In NS Inj 100 200 / 200 200 / 200 ML @ 200 mls/hr IV.SIG Q8H ANNITA Rx#:[id number] Magnesium Sulfate 1 gm/D5W 100 200 / 200 ml Premix 200 ML @ 0 mls/hr IV. SIG .STK-MED ONE Rx#:[id number] Levophed Inj 4 MG In NS Inj 246 0 / 0 ML @ 2 MCG/MIN 7.5 mls/hr IV. SIG TITRATE PRN Rx#:[id number] fentaNYL 10 mcg/mL Premix Drip 40 / 40 2,500 mcg In 250 ml @ 50 MCG/HR 5 mls/hr IV.SIG TITRATE PRN Rx #:[id number] Output: Urine Amount (Catheter) 1700 / 1700 1775 / 1775 Indwelling Urethral Catheter 1700 / 1700 1775 / 1775 Other: Date of Last Bowel Movement 08/29/18 09/29/18 08/29/18 Result Diagrams: 09/04/18 03:40 09/04/18 03:40 Other Results: Laboratory Results - last 24 hr 09/03/18 09/03/18 09/04/18 17:15 23:55 03:40 WBC 9.0 RBC 3.96 L Hgb 11.8 L Hct 36.0 L MCV 90.8 MCH 29.8 MCHC 32.8 RDW 14.7 Plt Count 190 MPV 8.9 Prelim Diff (Auto) Slide review pending Neut % (Auto) 90.8 H Lymph % (Auto) 3.6 L Mcduffie % (Auto) 5.6 Eos % (Auto) 0.0 Baso % (Auto) 0.0 Neut # (Auto) 8.1 H Lymph # (Auto) 0.3 L Mcduffie # (Auto) 0.5 Eos # (Auto) 0.0 Baso # (Auto) 0.0 WBC Differential Manual diff final Seg Neuts % (Manual) 89 H Band Neuts % (Manual) 1 Lymphocytes % (Manual) 1 L Monocytes % (Manual) 8 Metamyelocytes % (Man) 1 Abs Neuts (Manual) 8.2 H Nucleated RBCs/100 WBC 3 H Differential Comment . Platelet Estimate Normal Platelet Morphology Normal PT INR Sodium Potassium Chloride Carbon Dioxide Anion Gap BUN Creatinine Estimated GFR POC Glucose 181 H 139 H Random Glucose Calcium Magnesium Total Bilirubin Direct Bilirubin Indirect Bilirubin AST ALT Alkaline Phosphatase Total Protein Albumin Random Vancomycin 09/04/18 09/04/18 09/04/18 03:40 03:40 03:40 WBC RBC Hgb Hct MCV MCH MCHC RDW Plt Count MPV Prelim Diff (Auto) Neut % (Auto) Lymph % (Auto) Mcduffie % (Auto) Eos % (Auto) Baso % (Auto) Neut # (Auto) Lymph # (Auto) Mcduffie # (Auto) Eos # (Auto) Baso # (Auto) WBC Differential Seg Neuts % (Manual) Band Neuts % (Manual) Lymphocytes % (Manual) Monocytes % (Manual) Metamyelocytes % (Man) Abs Neuts (Manual) Nucleated RBCs/100 WBC Differential Comment Platelet Estimate Platelet Morphology PT 33.9 H D INR 3.4 Sodium 140 Potassium 3.0 L Chloride 100 Carbon Dioxide 25.1 Anion Gap 15 BUN 73 H Creatinine 3.33 H Estimated GFR 18 L POC Glucose Random Glucose 159 H Calcium 8.0 L Magnesium 1.9 Total Bilirubin 6.4 H Cancelled Direct Bilirubin 4.5 H Cancelled Indirect Bilirubin 1.9 H Cancelled AST 898 H ALT 2795 H Alkaline Phosphatase 84 Total Protein 5.7 L Albumin 3.1 L Random Vancomycin 18.1 09/04/18 09/04/18 05:52 11:56 WBC RBC Hgb Hct MCV MCH MCHC RDW Plt Count MPV Prelim Diff (Auto) Neut % (Auto) Lymph % (Auto) Mcduffie % (Auto) Eos % (Auto) Baso % (Auto) Neut # (Auto) Lymph # (Auto) Mcduffie # (Auto) Eos # (Auto) Baso # (Auto) WBC Differential Seg Neuts % (Manual) Band Neuts % (Manual) Lymphocytes % (Manual) Monocytes % (Manual) Metamyelocytes % (Man) Abs Neuts (Manual) Nucleated RBCs/100 WBC Differential Comment Platelet Estimate Platelet Morphology PT INR Sodium Potassium Chloride Carbon Dioxide Anion Gap BUN Creatinine Estimated GFR POC Glucose 145 H 170 H Random Glucose Calcium Magnesium Total Bilirubin Direct Bilirubin Indirect Bilirubin AST ALT Alkaline Phosphatase Total Protein Albumin Random Vancomycin Imaging: Impressions Chest X-Ray 09/03/18 00:00 CONCLUSION: Slight improvement of right lung and left basilar density. Head CT 09/04/18 00:00 CONCLUSION: 1. Negative noncontrast head CT. 2. Suboptimal study secondary to motion artifact. . Liver Ultrasound 09/04/18 00:00 CONCLUSION: 1. Small nodular liver with trace ascites 2. No focal mass. Objective Remarks: HEENT/ Neuro: Awake, alert, disoriented/confused. Speech appears normal however patient hallucinating and refusing exam by physicians. pallor present, no icterus, tongue/ mucosa moist Neck: No JVD Chest/Pulm: good air entry bilaterally, bibasilar crackles, no wheezing CVS: S1-S2 irregularly irregular no murmur GI/abdomen: soft, distended, nontender, bowel sounds sluggish Extremities: warm bilaterally, trace edema Assessment and Plan - Assessment and Plan Plan: NEURO: Encephalopathy: Suspect delirium, at risk for embolic events from A. fib as well as aortic valve vegetation. -CT head negative for bleed on 08/31 and 09/04. -Neurology consult requested. -We will need anticoagulation resume once INR drops below 3. Will plan on using heparin gtt. RESP: Acute hypoxemic respiratory failure Bibasilar pneumonia COPD -Emergently intubated for severe respiratory distress hypoxia and inability to protect airway -Tolerated CPAP trial and extubated on 09/03 to nasal cannula -DuoNeb every 4 hours scheduled and as needed -Broad-spectrum antibiotics as below -CT chest suggestive of pneumonia CV: Severe cardiogenic shock Severe metabolic acidosis Severe lactic acidosis 15.7 Atrial fibrillation with rapid ventricular response s/p cardioversion History of CABG Ischemic cardiomyopathy with ejection fraction 17% Moderate MR, moderate AI -Aggressively fluid resuscitated with crystalloids, IV albumin due to severe hypotension on 08/31. Stopped IV albumin on 09/04. -Dobutamine stopped on 09/04 following nonsustained V. tach and conversion to A. fib, off phenylephrine/Levophed. Vasopressin titrated off. - Amiodarone gtt 1mg/min s/p electrical cardioversion with 100 joules X2 on 09/01, converted to sinus rhythm, converted back to A. fib on 09/04 -Hold home medications p.o. amiodarone, p.o. metoprolol -IV digoxin 0.5 mg x1 on 08/31. -Lactic acid came back at 15.7 on 08/31, serial lactic acid decreasing -Stress dose steroids 2D echo on 09/03 with LVEF 20%, severe mitral regurgitation, aortic regurgitation , question of vegetation on aortic valve leaflet. Dr. felix from cardiology following. GI: -Advance p.o. diet as tolerated, IV famotidine -CT abdomen pelvis with some ascites : AK I/CKD -Monitor renal function closely. Escamilla catheter for strict intake output, hourly -Bicarb drip stopped as metabolic acidosis improved -Nephrology consulted and following. Continue Bumex 1 mg IV every 12 hourly. Patient has started making urine. ID: Septic shock Probable pneumonia -Antibiotics with IV Azactam, Flagyl, azithromycin, single dose of vancomycin -Blood urine and sputum cultures Blood cultures from 08/31 1 out of 2 sets growing strep viridans. ID consult requested. Repeat blood cultures on 09/03 no growth so far. Transthoracic echo with question of aortic valve vegetation on 09/03. EMILEE recommended. -CT chest abdomen pelvis as above HEME: -Monitor CBC, coags -Hold Xarelto due to extremely elevated INR and renal failure -Vitamin K 10 mg IV x2 on 09/02 ENDO: Hypoglycemia most likely from sepsis Hypothyroidism Mild hyperkalemia Hypocalcemia -Electrolyte replacement per protocol -Hypoglycemia protocol -Replace calcium PROPH: -Bilateral lower extremity SCDs. famotidine. Xarelto to be held. INR remains elevated. LINES: -Right subclavian central line, right femoral arterial line placed 08/31/2018. Palliative care consulted and following to assist with deciding goals of therapy. Condition critical Time spent on critical care excluding procedures 30 minutes
--- NOTE | 2018-09-04 13:39 | P.PNID ---
Subjective Remarks: Patient is an 83-year-old male, presented to the hospital complaining of shortness of breath for about a month. He was last admitted in July, and at that time he underwent replacement of his AICD generator. Patient stated that he has been having shortness of breath, and more recently the shortness of breath has become progressively worse. He has had poor appetite. He has been very weak and gets tired easily. He has not had any fever chills or sweats. Denies any cough or congestion, no nausea or vomiting or diarrhea, no urinary complaints. On presentation, patient was found to be in atrial fibrillation with RVR. He was manage conservatively with medication. His chest x-ray on admission showed clear lungs. He was admitted August 28. On August 31 patient had worsening shortness of breath and he ended up getting intubated that day. He has remained intubated since. One blood culture was done and it is growing strep viridans. Another blood culture was done on September 01 and that is negative so far. Patient has been afebrile. He was cardioverted on September 01 and has remained in normal sinus rhythm. Patient was previously on pressors after he got intubated, and his pressors have been tapered off. He is on dobutamine drip for inotropic support. He is on Cordarone drip. Patient remains on the vent, and currently on CPAP. He is on fentanyl drip. He has remained afebrile. His WBC went up after he got intubated, but has come down to normal. His creatinine also has risen, though he has good urine output. Nephrology is following him. Infectious disease consultation has been requested to make recommendation regarding the one positive blood culture with strep viridans. Notes reviewed D/W RN Temps ok Extubated yesterday gets agitated easily and confused BP dropped on precedex - D/C On and off levophed Went back to atrial fib last night Only one (+) BC 08/31 09/01 BC negative BC 09/02 neg x 2 Echo with density in AV WBC down to normal Creatinine elevated but has good UO Antibiotics: Vancomycin Azactam He had rash with PCN, has tolerated Keflex in the past - per Past Medical History: Afib COPD (chronic obstructive pulmonary disease) Diabetes Glaucoma HLD (hyperlipidemia) HTN (hypertension) Hypothyroid ICD (implantable cardioverter-defibrillator) in place Mitral regurgitation Skin cancer Ventricular tachycardia H/O sinus surgery Hx of CABG Allergies/Adverse Reactions: Allergies prednisone Allergy (Severe, Verified 08/28/18 14:33) Weight loss cannot take any type of steroids penicillin G Allergy (Intermediate, Verified 08/28/18 14:33) Hives Sulfa (Sulfonamide Antibiotics) Allergy (Intermediate, Verified 08/28/18 14:33) Hives Objective Vital Signs 09/03/18 14:00 09/03/18 15:00 09/03/18 16:00 Temperature 98.7 F Pulse Rate 87 87 88 Respiratory Rate 21 18 21 Blood Pressure 115/68 111/70 117/72 Pulse Oximetry 97 97 96 09/03/18 16:27 09/03/18 17:00 09/03/18 18:00 Temperature Pulse Rate 86 94 H 87 Respiratory Rate 18 20 24 Blood Pressure 124/66 108/67 Pulse Oximetry 96 96 09/03/18 19:00 09/03/18 20:00 09/03/18 21:00 Temperature 97.4 F L Pulse Rate 91 H 91 H 98 H Respiratory Rate 20 24 26 H Blood Pressure 112/70 120/69 115/73 Pulse Oximetry 96 95 94 L 09/03/18 22:00 09/03/18 23:00 09/04/18 00:00 Temperature 97.8 F Pulse Rate 101 H 105 H 106 H Respiratory Rate 19 16 22 Blood Pressure 115/73 124/66 114/73 Pulse Oximetry 94 L 95 95 09/04/18 01:00 09/04/18 02:00 09/04/18 03:00 Temperature Pulse Rate 94 H 88 98 H Respiratory Rate 18 15 23 Blood Pressure 107/70 117/64 Pulse Oximetry 93 L 94 L 93 L 09/04/18 03:01 09/04/18 04:00 09/04/18 05:00 Temperature 97.7 F Pulse Rate 91 H 98 H 104 H Respiratory Rate 19 19 21 Blood Pressure 126/71 119/74 136/78 Pulse Oximetry 93 L 92 L 95 09/04/18 06:00 09/04/18 07:00 09/04/18 08:00 Temperature Pulse Rate 120 H 122 H 121 H Respiratory Rate 22 Blood Pressure 100/72 Pulse Oximetry 92 L 09/04/18 10:00 09/04/18 11:00 09/04/18 12:00 Temperature Pulse Rate 109 H 111 H 99 H Respiratory Rate Blood Pressure Pulse Oximetry 09/04/18 13:00 09/04/18 13:12 Temperature Pulse Rate 106 H 106 H Respiratory Rate 22 Blood Pressure Pulse Oximetry 97 Intake & Output 09/03/18 09/04/18 09/04/18 18:59 06:59 18:59 Intake Total 540 / 540 500 / 500 600 / 600 Output Total 1700 / 1700 1775 / 1775 Balance -1160 / -1160 -1275 / -1275 600 / 600 Weight 77.6 kg Intake: IV 540 / 540 500 / 500 600 / 600 KCl 40 mEq Premix Inj 40 meq In 100 / 100 100 ml @ 0 mls/hr .ROUTE .STK- MED ONE Rx#:[id number] Cordarone Inj 450 MG In D5W Inj 250 / 250 250 / 250 241 ML @ 1 MG/MIN 33.33 mls/hr IV.CONT TITRATE PRN Rx#: [id number] Pitressin Inj 40 UNIT In D5W 0 / 0 Inj 98 ML @ 0.04 UNITS/MIN 6 mls/hr IV.CONT CONT ANNITA Rx#: [id number] Flexbumin 25% Inj 50 ML @ 50 50 / 50 50 / 50 50 / 50 mls/hr IV.SIG Q12H ANNITA Rx#: [id number] Azithromycin Inj 500 MG In NS 250 / 250 Inj 250 ML @ 250 mls/hr IV.SIG Q24H ANNITA Rx#:[id number] Azactam Inj 2 GM In NS Inj 100 200 / 200 200 / 200 ML @ 200 mls/hr IV.SIG Q8H ANNITA Rx#:[id number] Magnesium Sulfate 1 gm/D5W 100 200 / 200 ml Premix 200 ML @ 0 mls/hr IV. SIG .STK-MED ONE Rx#:[id number] Levophed Inj 4 MG In NS Inj 246 0 / 0 ML @ 2 MCG/MIN 7.5 mls/hr IV. SIG TITRATE PRN Rx#:[id number] fentaNYL 10 mcg/mL Premix Drip 40 / 40 2,500 mcg In 250 ml @ 50 MCG/HR 5 mls/hr IV.SIG TITRATE PRN Rx #:[id number] Output: Urine Amount (Catheter) 1700 / 1700 1775 / 1775 Indwelling Urethral Catheter 1700 / 1700 1775 / 1775 Other: Date of Last Bowel Movement 08/29/18 09/29/18 08/29/18 09/02/18 21:03 Blood - Peripheral Aerobic Blood Culture - Preliminary No growth in 2 days 09/02/18 21:03 Blood - Peripheral Anaerobic Blood Culture - Preliminary No growth in 2 days 09/02/18 21:08 Blood - Peripheral Aerobic Blood Culture - Preliminary No growth in 2 days 09/02/18 21:08 Blood - Peripheral Anaerobic Blood Culture - Preliminary No growth in 2 days 09/01/18 00:05 Blood - Peripheral Aerobic Blood Culture - Preliminary No growth in 3 days 09/01/18 00:05 Blood - Peripheral Anaerobic Blood Culture - Preliminary No growth in 3 days 08/31/18 22:20 Blood - Peripheral Aerobic Blood Culture - Final Viridans streptococcus grp 08/31/18 22:20 Blood - Peripheral Anaerobic Blood Culture - Preliminary No growth in 4 days 09/01/18 00:05 Sputum - Endotracheal Gram Stain - Final 09/01/18 00:05 Sputum - Endotracheal Sputum Culture - Final Light growth normal respiratory [facility] - Hematology Results 09/03/18 09/04/18 05:55 03:40 WBC 7.4 9.0 RBC 3.65 L 3.96 L Hgb 11.2 L 11.8 L Hct 33.1 L 36.0 L MCV 90.8 90.8 MCH 30.6 29.8 MCHC 33.7 32.8 RDW 14.8 14.7 Plt Count 167 190 MPV 8.7 8.9 Prelim Diff (Auto) Slide review pending Slide review pending Neut % (Auto) 91.5 H 90.8 H Lymph % (Auto) 4.9 L 3.6 L Nye % (Auto) 3.4 5.6 Eos % (Auto) 0.0 0.0 Baso % (Auto) 0.2 0.0 Neut # (Auto) 6.8 8.1 H Lymph # (Auto) 0.4 L 0.3 L Nye # (Auto) 0.3 0.5 Eos # (Auto) 0.0 0.0 Baso # (Auto) 0.0 0.0 WBC Differential Manual diff final Manual diff final Seg Neuts % (Manual) 88 H 89 H Band Neuts % (Manual) 2 1 Lymphocytes % (Manual) 6 L 1 L Monocytes % (Manual) 2 8 Metamyelocytes % (Man) 2 H 1 Abs Neuts (Manual) 6.8 8.2 H Nucleated RBCs/100 WBC 6 H 3 H Differential Comment . . Platelet Estimate Normal Normal Platelet Morphology Normal Normal Ovalocytes 1+ H Lab - Chemistry Results 09/02/18 09/02/18 09/02/18 16:25 16:25 17:43 Sodium 136 Potassium 3.7 Chloride 96 L Carbon Dioxide 27.6 Anion Gap 12 BUN 67 H Creatinine 3.48 H Estimated GFR 17 L POC Glucose 144 H Random Glucose 136 H Lactic Acid 3.8 H Calcium 7.4 L* Prot Corrected Calcium 8.5 Magnesium Total Bilirubin 3.1 H Direct Bilirubin Indirect Bilirubin AST 5193 H ALT 4466 H Alkaline Phosphatase 79 Total Protein 5.1 L Albumin 2.8 L 09/02/18 09/03/18 09/03/18 23:42 05:02 05:55 Sodium 139 Potassium 3.5 Chloride 97 L Carbon Dioxide 26.1 Anion Gap 16 H BUN 70 H Creatinine 3.52 H Estimated GFR POC Glucose 146 H 176 H Random Glucose 156 H Lactic Acid Calcium 7.7 L Prot Corrected Calcium Magnesium Total Bilirubin 4.1 H Direct Bilirubin Indirect Bilirubin AST 2611 H ALT 3836 H Alkaline Phosphatase 83 Total Protein 5.4 L Albumin 2.8 L 09/03/18 09/03/18 09/03/18 08:05 11:25 17:15 Sodium Potassium Chloride Carbon Dioxide Anion Gap BUN Creatinine Estimated GFR POC Glucose 142 H 181 H Random Glucose Lactic Acid 3.4 H Calcium Prot Corrected Calcium Magnesium Total Bilirubin Direct Bilirubin Indirect Bilirubin AST ALT Alkaline Phosphatase Total Protein Albumin 09/03/18 09/04/18 09/04/18 23:55 03:40 03:40 Sodium 140 Potassium 3.0 L Chloride 100 Carbon Dioxide 25.1 Anion Gap 15 BUN 73 H Creatinine 3.33 H Estimated GFR 18 L POC Glucose 139 H Random Glucose 159 H Lactic Acid Calcium 8.0 L Prot Corrected Calcium Magnesium 1.9 Total Bilirubin 6.4 H Cancelled Direct Bilirubin 4.5 H Cancelled Indirect Bilirubin 1.9 H Cancelled AST 898 H ALT 2795 H Alkaline Phosphatase 84 Total Protein 5.7 L Albumin 3.1 L 09/04/18 09/04/18 05:52 11:56 Sodium Potassium Chloride Carbon Dioxide Anion Gap BUN Creatinine Estimated GFR POC Glucose 145 H 170 H Random Glucose Lactic Acid Calcium Prot Corrected Calcium Magnesium Total Bilirubin Direct Bilirubin Indirect Bilirubin AST ALT Alkaline Phosphatase Total Protein Albumin Imaging: ITS Impressions Abdomen/Pelvis CT 09/01/18 00:00 CONCLUSION: 1. Trace ascites, nonspecific. Also mild body wall edema. No organized or drainable fluid. 2. Diverticulosis of the sigmoid colon. No diverticulitis or other acute inflammatory changes. 3. Atherosclerosis of the aorta. Chest CT 09/01/18 00:00 CONCLUSION: 1. Bilateral pneumonia, especially right upper lobe. 2. Small bilateral pleural effusions; dependent/compressive atelectasis of both lower lobes. 3. Panchamber enlargement of the heart. Chest X-Ray 09/03/18 00:00 CONCLUSION: Slight improvement of right lung and left basilar density. Head CT 09/04/18 00:00 CONCLUSION: 1. Negative noncontrast head CT. 2. Suboptimal study secondary to motion artifact. . Liver Ultrasound 09/04/18 00:00 CONCLUSION: 1. Small nodular liver with trace ascites 2. No focal mass. Physical Exam: GENERAL: Patient is a well-nourished, well-developed male, awake, responding , on nasal O2, not in respiratory distress. SKIN: Cool and dry. No generalized rash, no ecchymoses and no evidence of embolic lesions. HEAD: Atraumatic. Normocephalic. No temporal wasting, or tenderness. EYES: [place] conjunctiva. No petechia or hemorrhage. Pupils equal, round and reactive to light. No scleral icterus. No injection or drainage. EARS, NOSE AND THROAT: Nose without bleeding or purulent nasal discharge. He is orally intubated. NECK: Trachea midline. Supple and not tender, no meningeal signs CARDIOVASCULAR: Regular rate and rhythm. No murmurs, rubs or gallops heard. ICD in L upper chest with healed incision, no redness or induration RESPIRATORY: Equal breath sounds bilaterally, decreased BS ABDOMEN: Mildly distended abdomen, nontender, bowel sounds present and normoactive. No guarding. No rebound. No organomegaly. EXTREMITIES: No clubbing, cyanosis, or edema in BLE. Has edema both hands. No calf tenderness. NEUROLOGICAL: Opens eyes, follows some commands. No Babinski, no clonus. PSYCHIATRIC: Confused LINE: No evidence of infection Assessment and Plan - Plan Impression One (+) BC with Strep viridans - has possible veg in AV - has been having a lot of dental work (crown) Bilateral infiltrates, PNA +/- fluid, has improved Respiratory failure, extubated 09/03 Atrial fib, cardioverted 08/22, in NSR - back in atrial fib Has AICD Renal insufficiency Recommendation Change Abx to Rocephin - per he has tolerated Keflex in the past; his reaction to PCN was rash Will D/W cardiology regarding EMILEE Stop vanco and Azactam Follow C/S Monitor progress D/W RN Spoke with
--- NOTE | 2018-09-04 14:15 | P.DIET ---
Nutritional Evaluation Type of nutrition evaluation: follow-up Nutrition screening: Weight Loss > 10 lbs Screening comments: reported 20-lb wt loss over the last month NPO x3 Subjective Oral Diet Tolerance Assessment Indicates: Chewing problems Subjective Comments: Nursing Assessment w/ reported difficulties chewing. 100% po for meals here. Objective - Diagnosis AFib RVR, Acute on Chronic Renal Failure - Objective % IBW: 90 Body Weight Used for Calculations: Actual (66.5 kg) Energy Needs - Lower Range (kCal/kg): 30 Energy Needs - Upper Range (kCal/kg): 35 Lower Limit kCal/kg (kCals): 1,995 Upper Limit kCal/kg (kCals): 2,328 Lower Limit Protein Factor (Grams per Kg): 1.0 Upper Limit Protein Factor (Grams per Kg): 1.3 Lower Protein Needs (Protein): 67 Upper Protein Needs (Protein): 86 Dietitian Reviewed in Medical Record: Current diet, Curent medications, Intake & Output, Labs, Medical history Diet Order: NPO Objective Comments: PMH: AFib, COPD, DM, glaucoma, HLD, HTN, Hypothyroidism, ICD in place, h/o CABG x 5 2009, Ventricular Tachycardia Labs include: BUN 73, Creatinine 3.33, estGFR 18, Glucose 170 LBM 08/29 Assessment Assessment: Pt continues to be at nutritional risk r/t recent reported unintentional wt loss. Pt was consuming 100% most meals before NPO on 09/01. [facility] Pt currently NPO x3 days, per MD note, pts PO diet will be advanced as tolerated. Continue to monitor renal labs and glucose, NPO status. Dietitian will follow. Recommendations: 1. Diet will advance as tolerated per MD note 2. Monitor renal, glucose labs and NPO status 3. Dietitian will follow Dietitian to Monitor: Lab values, Renal labs, Glucose level, Supplement acceptance, Intake & Output, Weight change, PO Intake, Medical course
--- NOTE | 2018-09-04 14:21 | P.PNNP ---
Subjective Interval history: Unable to obtain review of systems, patient was moaning. Family was at bedside. Per the RN, patient has become more confused. A CT scan of the head and a liver ultrasound were ordered today. The patient has a kiser cath in and has been making urine. <Ml Saini - Last Filed: 09/04/18 14:22> Physical Exam Vital signs: Vital Signs 09/03/18 15:00 09/03/18 16:00 09/03/18 16:27 Temperature 98.7 F Pulse Rate 87 88 86 Respiratory Rate 18 21 18 Blood Pressure 111/70 117/72 Pulse Oximetry 97 96 09/03/18 17:00 09/03/18 18:00 09/03/18 19:00 Temperature Pulse Rate 94 H 87 91 H Respiratory Rate 20 24 20 Blood Pressure 124/66 108/67 112/70 Pulse Oximetry 96 96 96 09/03/18 20:00 09/03/18 21:00 09/03/18 22:00 Temperature 97.4 F L Pulse Rate 91 H 98 H 101 H Respiratory Rate 24 26 H 19 Blood Pressure 120/69 115/73 115/73 Pulse Oximetry 95 94 L 94 L 09/03/18 23:00 09/04/18 00:00 09/04/18 01:00 Temperature 97.8 F Pulse Rate 105 H 106 H 94 H Respiratory Rate 16 22 18 Blood Pressure 124/66 114/73 107/70 Pulse Oximetry 95 95 93 L 09/04/18 02:00 09/04/18 03:00 09/04/18 03:01 Temperature Pulse Rate 88 98 H 91 H Respiratory Rate 15 23 19 Blood Pressure 117/64 126/71 Pulse Oximetry 94 L 93 L 93 L 09/04/18 04:00 09/04/18 05:00 09/04/18 06:00 Temperature 97.7 F Pulse Rate 98 H 104 H 120 H Respiratory Rate 19 21 22 Blood Pressure 119/74 136/78 100/72 Pulse Oximetry 92 L 95 92 L 09/04/18 07:00 09/04/18 08:00 09/04/18 10:00 Temperature Pulse Rate 122 H 121 H 109 H Respiratory Rate Blood Pressure Pulse Oximetry 09/04/18 11:00 09/04/18 12:00 09/04/18 13:00 Temperature Pulse Rate 111 H 99 H 106 H Respiratory Rate Blood Pressure Pulse Oximetry 09/04/18 13:12 Temperature Pulse Rate 106 H Respiratory Rate 22 Blood Pressure Pulse Oximetry 97 Intake & Output 09/03/18 09/04/18 09/04/18 18:59 06:59 18:59 Intake Total 540 / 540 500 / 500 600 / 600 Output Total 1700 / 1700 1775 / 1775 Balance -1160 / -1160 -1275 / -1275 600 / 600 Weight 77.6 kg Intake: IV 540 / 540 500 / 500 600 / 600 KCl 40 mEq Premix Inj 40 meq In 100 / 100 100 ml @ 0 mls/hr .ROUTE .STK- MED ONE Rx#:[id number] Cordarone Inj 450 MG In D5W Inj 250 / 250 250 / 250 241 ML @ 1 MG/MIN 33.33 mls/hr IV.CONT TITRATE PRN Rx#: [id number] Pitressin Inj 40 UNIT In D5W 0 / 0 Inj 98 ML @ 0.04 UNITS/MIN 6 mls/hr IV.CONT CONT ANNITA Rx#: [id number] Flexbumin 25% Inj 50 ML @ 50 50 / 50 50 / 50 50 / 50 mls/hr IV.SIG Q12H ANNITA Rx#: [id number] Azithromycin Inj 500 MG In NS 250 / 250 Inj 250 ML @ 250 mls/hr IV.SIG Q24H ANNITA Rx#:[id number] Azactam Inj 2 GM In NS Inj 100 200 / 200 200 / 200 ML @ 200 mls/hr IV.SIG Q8H ANNITA Rx#:[id number] Magnesium Sulfate 1 gm/D5W 100 200 / 200 ml Premix 200 ML @ 0 mls/hr IV. SIG .STK-MED ONE Rx#:[id number] Levophed Inj 4 MG In NS Inj 246 0 / 0 ML @ 2 MCG/MIN 7.5 mls/hr IV. SIG TITRATE PRN Rx#:[id number] fentaNYL 10 mcg/mL Premix Drip 40 / 40 2,500 mcg In 250 ml @ 50 MCG/HR 5 mls/hr IV.SIG TITRATE PRN Rx #:[id number] Output: Urine Amount (Catheter) 1700 / 1700 1775 / 1775 Indwelling Urethral Catheter 1700 / 1700 1775 / 1775 Other: Date of Last Bowel Movement 08/29/18 09/29/1808/29/18 - Constitutional mild distress - Routine HEENT Exam Head: Present: normocephalic Eye: Present: EOMI ENT: Present: mucous membranes moist - Routine Neck Exam Present: trachea midline - Routine Respiratory Exam Present: crackles. Absent: accessory muscle use, wheezes - Routine Cardiovascular Exam Present: S1, S2 - Routine Abdominal Exam Present: soft. Absent: tenderness - Routine Extremities Exam Present: edema - Urinary Catheter Management Indwelling Urethral Catheter Cath placed during this visit: yes Reason for continuing: Hourly intake/output Insertion date: 08/31/18 Insertion time: 22:00 <Ml Saini - Last Filed: 09/04/18 14:22> Vital signs: Vital Signs 09/03/18 18:00 09/03/18 19:00 09/03/18 20:00 Temperature 97.4 F L Pulse Rate 87 91 H 91 H Respiratory Rate 24 20 24 Blood Pressure 108/67 112/70 120/69 Pulse Oximetry 96 96 95 09/03/18 21:00 09/03/18 22:00 09/03/18 23:00 Temperature Pulse Rate 98 H 101 H 105 H Respiratory Rate 26 H 19 16 Blood Pressure 115/73 115/73 124/66 Pulse Oximetry 94 L 94 L 95 09/04/18 00:00 09/04/18 01:00 09/04/18 02:00 Temperature 97.8 F Pulse Rate 106 H 94 H 88 Respiratory Rate 22 18 15 Blood Pressure 114/73 107/70 117/64 Pulse Oximetry 95 93 L 94 L 09/04/18 03:00 09/04/18 03:01 09/04/18 04:00 Temperature 97.7 F Pulse Rate 98 H 91 H 98 H Respiratory Rate 23 19 19 Blood Pressure 126/71 119/74 Pulse Oximetry 93 L 93 L 92 L 09/04/18 05:00 09/04/18 06:00 09/04/18 07:00 Temperature Pulse Rate 104 H 120 H 122 H Respiratory Rate 21 22 24 Blood Pressure 136/78 100/72 117/68 Pulse Oximetry 95 92 L 93 L 09/04/18 08:00 09/04/18 09:00 09/04/18 10:00 Temperature 98.3 F Pulse Rate 121 H 109 H Respiratory Rate 20 17 Blood Pressure 119/70 120/73 92/57 L Pulse Oximetry 91 L 11/02/18 10:59 09/04/18 11:00 09/04/18 11:18 Temperature Pulse Rate 112 H 111 H 91 H Respiratory Rate 29 H 27 H 12 Blood Pressure 96/62 L 85/58 L 90/52 L Pulse Oximetry 93 L 93 L 94 L 09/04/18 11:25 09/04/18 11:29 09/04/18 11:30 Temperature Pulse Rate 88 88 91 H Respiratory Rate 11 L 12 11 L Blood Pressure 83/53 L 83/51 L 81/53 L Pulse Oximetry 94 L 94 L 94 L 09/04/18 11:45 09/04/18 12:00 09/04/18 12:16 Temperature 98 F Pulse Rate 111 H 99 H 94 H Respiratory Rate 43 H 28 H 11 L Blood Pressure 108/71 105/78 92/55 L Pulse Oximetry 88 L 95 94 L 09/04/18 12:30 09/04/18 12:45 09/04/18 13:00 Temperature Pulse Rate 93 H 105 H 106 H Respiratory Rate 14 41 H 28 H Blood Pressure 99/57 L 91/58 L 134/71 Pulse Oximetry 94 L 94 L 93 L 09/04/18 13:12 09/04/18 13:15 09/04/18 13:30 Temperature Pulse Rate 106 H 87 107 H Respiratory Rate 22 21 26 H Blood Pressure 117/61 105/61 Pulse Oximetry 97 97 94 L 09/04/18 13:45 09/04/18 14:00 09/04/18 14:15 Temperature Pulse Rate 116 H 109 H 111 H Respiratory Rate 28 H 27 H 24 Blood Pressure 103/59 L 115/75 100/58 L Pulse Oximetry 93 L 93 L 09/04/18 14:30 09/04/18 14:45 09/04/18 15:00 Temperature Pulse Rate 107 H 107 H 105 H Respiratory Rate 31 H 26 H 25 H Blood Pressure 103/64 103/59 L 109/55 L Pulse Oximetry 93 L 09/04/18 15:15 09/04/18 15:30 09/04/18 15:45 Temperature Pulse Rate 101 H 105 H 96 H Respiratory Rate 25 H 21 11 L Blood Pressure 96/58 L 92/53 L 87/51 L Pulse Oximetry 09/04/18 16:00 09/04/18 16:15 09/04/18 16:30 Temperature 97.3 F L Pulse Rate 103 H 106 H 107 H Respiratory Rate 24 29 H 25 H Blood Pressure 93/63 L 90/66 L 104/65 Pulse Oximetry 09/04/18 16:45 Temperature Pulse Rate 105 H Respiratory Rate 20 Blood Pressure 97/53 L Pulse Oximetry Intake & Output 09/03/18 09/04/18 09/04/18 18:59 06:59 18:59 Intake Total 540 / 540 500 / 500 1087.5 / 1087.5 Output Total 1700 / 1700 1775 / 1775 Balance -1160 / -1160 -1275 / -1275 1087.5 / 1087.5 Weight 77.6 kg Intake: IV 540 / 540 500 / 500 1087.5 / 1087.5 KCl 40 mEq Premix Inj 40 meq In 100 / 100 100 ml @ 0 mls/hr .ROUTE .STK- MED ONE Rx#:[id number] Cordarone Inj 450 MG In D5W Inj 250 / 250 250 / 250 241 ML @ 1 MG/MIN 33.33 mls/hr IV.CONT TITRATE PRN Rx#: [id number] Dobutrex Inj 500 MG In D5W Inj 125 / 125 210 ML @ 2.5 MCG/KG/MIN 5.17 mls/hr IV.CONT .Q24H ANNITA Rx#: [id number] Pitressin Inj 40 UNIT In D5W 0 / 0 Inj 98 ML @ 0.04 UNITS/MIN 6 mls/hr IV.CONT CONT ANNITA Rx#: [id number] Flexbumin 25% Inj 50 ML @ 50 50 / 50 50 / 50 50 / 50 mls/hr IV.SIG Q12H ANNITA Rx#: [id number] Azithromycin Inj 500 MG In NS 250 / 250 Inj 250 ML @ 250 mls/hr IV.SIG Q24H ANNITA Rx#:[id number] Azactam Inj 2 GM In NS Inj 100 200 / 200 200 / 200 ML @ 200 mls/hr IV.SIG Q8H ANNITA Rx#:[id number] Magnesium Sulfate 1 gm/D5W 100 200 / 200 ml Premix 200 ML @ 0 mls/hr IV. SIG .STK-MED ONE Rx#:[id number] Levophed Inj 4 MG In NS Inj 246 0 / 0 ML @ 2 MCG/MIN 7.5 mls/hr IV. SIG TITRATE PRN Rx#:[id number] Vancomycin Inj 1,250 MG In NS 262.5 / 262.5 Inj 250 ML @ 250 mls/hr IV.SIG ONCE ONE Rx#:[id number] Rocephin Inj 2,000 MG In NS Inj 100 / 100 100 ML @ 200 mls/hr IV.SIG Q24H ANNITA Rx#:[id number] fentaNYL 10 mcg/mL Premix Drip 40 / 40 2,500 mcg In 250 ml @ 50 MCG/HR 5 mls/hr IV.SIG TITRATE PRN Rx #:[id number] Output: Urine Amount (Catheter) 1700 / 1700 1775 / 1775 Indwelling Urethral Catheter 1700 / 1700 1775 / 1775 Other: Date of Last Bowel Movement 08/29/18 09/29/18 08/29/18 - Urinary Catheter Management Indwelling Urethral Catheter Cath placed during this visit: no <Pete Álvarez - Last Filed: 09/04/18 17:51> Assessment and Plan - Assessment (1) Acute kidney injury Code(s): N17.9 - Acute kidney failure, unspecified Status: Deleted Plan: Likely due to ATN due to hypoperfusion, possible sepsis. Continue Bumex. There is no immediate need to initiate dialysis. His urine output has improved. (2) Cardiomyopathy Code(s): I42.9 - Cardiomyopathy, unspecified Status: Chronic Plan: Acute on chronic systolic heart failure. Cardiology following. (3) Atrial fibrillation with rapid ventricular response Code(s): I48.91 - Unspecified atrial fibrillation Status: Acute Plan: s/p cardioversion. On Amiodarone. (4) Transaminitis Code(s): R74.0 - Nonspecific elevation of levels of transaminase and lactic acid dehydrogenase [LDH] Status: Deleted Plan: Due to ischemic hepatitis. Improving. <Ml Saini - Last Filed: 09/04/18 14:22> - Assessment (1) Acute kidney injury Code(s): N17.9 - Acute kidney failure, unspecified Status: Deleted (2) Cardiomyopathy Code(s): I42.9 - Cardiomyopathy, unspecified Status: Chronic (3) Atrial fibrillation with rapid ventricular response Code(s): I48.91 - Unspecified atrial fibrillation Status: Acute (4) Transaminitis Code(s): R74.0 - Nonspecific elevation of levels of transaminase and lactic acid dehydrogenase [LDH] Status: Deleted - Attending Attestation patient was seen and examined. He has been extubated. Renal function is better. On Bumex. He is confused, mumbling words. <Pete Álvarez - Last Filed: 09/04/18 17:51>
[2018-09-04] MEDS ORDERED: Bisacodyl 10 MG Supp RECTAL PRN (14:54)
[2018-09-04] MEDS ORDERED: Bisacodyl 10 MG Supp RECTAL ONE (15:00)
--- NOTE | 2018-09-04 15:51 | MB ---
cc: Sarah Norris MD DATE: 09/04/2018 REASON FOR CONSULTATION: Encephalopathy. HISTORY OF PRESENT ILLNESS: This is an 83-year-old male with a history of atrial fibrillation, on Xarelto, cardiomyopathy, moderate mitral regurgitation, aortic insufficiency, hypertension, hyperlipidemia, ventricular tachycardia with a history ICD, COPD, who was admitted to the hospitalist service for shortening of breath. Noted to have an EF of 17%, per echo from last year. Was increasingly short of breath over time and became worse. Was in atrial fibrillation RVR, developed severe acidosis, intubated. Yesterday was extubated and became more confused overnight. Precedex was started and then stopped. He had dobutamine for a run of ventricular tachycardia earlier and converted to atrial fibrillation. 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 EMILEE was recommended. Currently, he is not intubated. He is in wrist restraints lying in bed in no distress. PHYSICAL EXAMINATION: VITAL SIGNS: Heart rate 107, respiratory rate 31, blood pressure 103/64, temperature is 98. NEUROLOGIC: He opens his eyes briefly, but then closes them. His pupils are reactive. His face looks symmetrical. He moans, does not follow commands. 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 He withdraws his feet to noxious stimuli and then he tells me to stop. He does not like his feet touched. He withdraws them equally. His reflexes are trace to 1+. Does not follow for cerebellar. LABORATORY DATA: Reviewed. His white count is currently 9, hemoglobin 11.8, platelets are 190,000. Segmented neutrophils 89, bands are 1 currently. INR 3.4. Chemistry: His glucose is 170. Direct bilirubin 4.5, total 6.4, indirect 1.9, AST 898, ALT 2795, albumin of 3.1. TSH was normal. His T4 is 1.49, mildly elevated. His urine is hazy. He had a brain scan. There was some motion, but nothing acute was seen. Liver ultrasound showed nodular liver with trace ascites. No focal mass. His GFR is abnormal as well at 18. IMPRESSION: Encephalopathy, may be multifactorial. Decreased perfusion to the brain, given his low ejection fraction, but also electrolyte disturbance, metabolic with a low GFR, elevated LFTs. Also, he has not had a bowel movement in about a week. His belly is somewhat tense. Recommend giving him a suppository and getting him to move his bowels to see if there is some improvement. He is not on any sedating medication. We will get an EEG and we will continue to monitor neurologic status luque. His INR is therapeutic. I do not think we need to repeat another CT at this time; however, we will continue to monitor him and further recommendations will be made accordingly. MD SERGEI Perez/emelia , 03:18 PM , 03:30 PM
[2018-09-04 16:10] LABS: Hematocrit 29.1 % (39.0-51.0); Hemoglobin 9.9 gm/dL (13.0-17.0); Mean Corpuscular Hemoglobin 31.1 pg (27.0-34.0); Mean Corpuscular Volume 91.4 fL (80.0-100.0); Mean Platelet Volume 8.7 fL (7.0-11.0); Platelet Count 169 th/mm3 (150-450); Red Blood Count 3.18 mil/mm3 (4.50-5.90); White Blood Count 8.8 th/mm3 (4.0-11.0)
[2018-09-04 16:20] LABS: Activated Partial Thrombo Time 53.2 sec (23.4-31.7); INR 3.3 Ratio; Prothrombin Time 33.5 sec (9.8-11.6)
--- NOTE | 2018-09-04 17:12 | P.PNPAL ---
Reason for Visit Reason for visit: a. To assist with evaluation and management of symptoms including: pain, dyspnea. b. To assist medical decision maker(s) with: better understanding of current medical conditions; weighing benefits/burdens of medical treatment options; making medical treatment decisions. Subjective Subjective/Interval History: Patient seen and examined in ICU. and nurse, Jorge at bedside. Also present during a portion of my meeting. Dr. Norris and VIVIAN Roberts from cardiology. Daughter, Winnie arrived also. Patient is more confused today. Questionable facial droop noted by nurses on left side this morning. CT head negative. Patient unable to have MRI secondary to AICD. EEG ordered. Remains on oxygen via nasal cannula. Appears jaundiced today. Worsening bilirubin. Liver US small nodular liver with trace ascites. Scant amount of bloody urine noted in Escamilla bag, possibly secondary to him pulling on the tube/trauma. Bladder scan pending. Creatinine remains elevated. tells me nephrology said he would not likely tolerate dialysis due to overall poor clinical condition, hypotension. Patient has converted back to atrial fibrillation. Cardiology will adjust meds. Patient unable to take PO. Not likely to be a candidate for another cardioversion. Echocardiogram EF 20% and AV vegetation, uncertain if they will proceed with EMILEE. ID following. Today's lab results: * WBC 8.8, hemoglobin 9.9, hematocrit 29.1, platelet 169 * PT 33.5, INR 3.3, PTT 53.2 * Sodium 140, potassium 3.0, BUN 73, creatinine 3.33, GFR 18 * Total bilirubin has increased from 4.1-6.4 in the past 24 hours, direct bilirubin 4.5, indirect bilirubin 1.9, AST has decreased to 898 and ALT to 2795 , alkaline phosphatase 84 * Total protein 5.7, albumin 3.1 Lengthy conversation with and daughter to provide medical update. Reviewed worsening clinical condition, test results. Reviewed overall likely poor prognosis. remans hopeful and optimistic, she says as "long as he is still here, he is here." Though she verbalizes concern he may not get better. desires continued aggressive care including FULL CODE and reintubation if needed. She verbalizes understanding, following my visit she is audibly tearful. Spoke with daughter who is appropriately tearful. Anticipate arrival of his son tomorrow. Advance Directives Living Will: Never completed Health Care Surrogate: Never completed Durable Power of [employer] Farm Manager: Never completed Health Care Surrogate Name and Number: Health care proxy, : Jovita Ravi : [phone] Objective Vital Signs: Vital Signs 09/03/18 17:00 09/03/18 18:00 09/03/18 19:00 Temperature Pulse Rate 94 H 87 91 H Respiratory Rate 20 24 20 Blood Pressure 124/66 108/67 112/70 Pulse Oximetry 96 96 96 09/03/18 20:00 09/03/18 21:00 09/03/18 22:00 Temperature 97.4 F L Pulse Rate 91 H 98 H 101 H Respiratory Rate 24 26 H 19 Blood Pressure 120/69 115/73 115/73 Pulse Oximetry 95 94 L 94 L 09/03/18 23:00 09/04/18 00:00 09/04/18 01:00 Temperature 97.8 F Pulse Rate 105 H 106 H 94 H Respiratory Rate 16 22 18 Blood Pressure 124/66 114/73 107/70 Pulse Oximetry 95 95 93 L 09/04/18 02:00 09/04/18 03:00 09/04/18 03:01 Temperature Pulse Rate 88 98 H 91 H Respiratory Rate 15 23 19 Blood Pressure 117/64 126/71 Pulse Oximetry 94 L 93 L 93 L 09/04/18 04:00 09/04/18 05:00 09/04/18 06:00 Temperature 97.7 F Pulse Rate 98 H 104 H 120 H Respiratory Rate 19 21 22 Blood Pressure 119/74 136/78 100/72 Pulse Oximetry 92 L 95 92 L 09/04/18 07:00 09/04/18 08:00 09/04/18 09:00 Temperature 98.3 F Pulse Rate 122 H 121 H Respiratory Rate 24 20 Blood Pressure 117/68 119/70 120/73 Pulse Oximetry 93 L 91 L 09/04/18 10:00 09/04/18 10:59 09/04/18 11:00 Temperature Pulse Rate 109 H 112 H 111 H Respiratory Rate 17 29 H 27 H Blood Pressure 92/57 L 96/62 L 85/58 L Pulse Oximetry 93 L 93 L 09/04/18 11:18 09/04/18 11:25 09/04/18 11:29 Temperature Pulse Rate 91 H 88 88 Respiratory Rate 12 11 L 12 Blood Pressure 90/52 L 83/53 L 83/51 L Pulse Oximetry 94 L 94 L 94 L 09/04/18 11:30 09/04/18 11:45 09/04/18 12:00 Temperature 98 F Pulse Rate 91 H 111 H 99 H Respiratory Rate 11 L 43 H 28 H Blood Pressure 81/53 L 108/71 105/78 Pulse Oximetry 94 L 88 L 95 09/04/18 12:16 09/04/18 12:30 09/04/18 12:45 Temperature Pulse Rate 94 H 93 H 105 H Respiratory Rate 11 L 14 41 H Blood Pressure 92/55 L 99/57 L 91/58 L Pulse Oximetry 94 L 94 L 94 L 09/04/18 13:00 09/04/18 13:12 09/04/18 13:15 Temperature Pulse Rate 106 H 106 H 87 Respiratory Rate 28 H 22 21 Blood Pressure 134/71 117/61 Pulse Oximetry 93 L 97 97 09/04/18 13:30 09/04/18 13:45 09/04/18 14:00 Temperature Pulse Rate 107 H 116 H 109 H Respiratory Rate 26 H 28 H 27 H Blood Pressure 105/61 103/59 L 115/75 Pulse Oximetry 94 L 93 L 09/04/18 14:15 09/04/18 14:30 09/04/18 15:00 Temperature Pulse Rate 111 H 107 H 97 H Respiratory Rate 24 31 H Blood Pressure 100/58 L 103/64 Pulse Oximetry 93 L 93 L Intake & Output 09/03/18 09/04/18 09/04/18 18:59 06:59 18:59 Intake Total 540 / 540 500 / 500 600 / 600 Output Total 1700 / 1700 1775 / 1775 Balance -1160 / -1160 -1275 / -1275 600 / 600 Weight 77.6 kg Intake: IV 540 / 540 500 / 500 600 / 600 KCl 40 mEq Premix Inj 40 meq In 100 / 100 100 ml @ 0 mls/hr .ROUTE .STK- [facility] Rx#:[id number] Cordarone Inj 450 MG In D5W Inj 250 / 250 250 / 250 241 ML @ 1 MG/MIN 33.33 mls/hr IV.CONT TITRATE PRN Rx#: [id number] Pitressin Inj 40 UNIT In D5W 0 / 0 Inj 98 ML @ 0.04 UNITS/MIN 6 mls/hr IV.CONT CONT ANNITA Rx#: [id number] Flexbumin 25% Inj 50 ML @ 50 50 / 50 50 / 50 50 / 50 mls/hr IV.SIG Q12H [facility] Rx#: [id number] Azithromycin Inj 500 MG In NS 250 / 250 Inj 250 ML @ 250 mls/hr IV.SIG Q24H [facility] Rx#:[id number] Azactam Inj 2 GM In NS Inj 100 200 / 200 200 / 200 ML @ 200 mls/hr IV.SIG Q8H [facility] Rx#:[id number] Magnesium Sulfate 1 gm/D5W 100 200 / 200 ml Premix 200 ML @ 0 mls/hr IV. SIG .STK-[facility] Rx#:[id number] Levophed Inj 4 MG In NS Inj 246 0 / 0 ML @ 2 MCG/MIN 7.5 mls/hr IV. SIG TITRATE PRN Rx#:[id number] fentaNYL 10 mcg/mL Premix Drip 40 / 40 2,500 mcg In 250 ml @ 50 MCG/HR 5 mls/hr IV.SIG TITRATE PRN Rx #:[id number] Output: Urine Amount (Catheter) 1700 / 1700 1775 / 1775 Indwelling Urethral Catheter 1700 / 1700 1775 / 1775 Other: Date of Last Bowel Movement 08/29/18 09/29/18 08/29/18 Physical Exam: CONSTITUTIONAL/GENERAL: This is a critically ill pt, in no apparent distress. TUBES/LINES/DRAINS: NC oxygen, right Sub CL, AICD, PIV left, Escamilla (bloody scant urine). SKIN: Jaundice. Ecchymoses on upper extremities. Skin temperature appropriate. Not diaphoretic. EYES: opens eyes. ENT: Hard of hearing. nose without bleeding or purulent drainage. CARDIOVASCULAR: A. Fib on monitor, tachycardic. RESPIRATORY/CHEST: scattered coarse breath sounds bilaterally R > L. GASTROINTESTINAL: Abdomen firm, more distended. Bowel sounds hypoactive. GENITOURINARY: Without palpable bladder distension. Escamilla catheter in place. MUSCULOSKELETAL: Extremities with edema. No mottling or clubbing. NEUROLOGICAL: Awakens, confused. Speech is difficult to understand. PSYCHIATRIC: arousable, confused. Diagnostic Tests Laboratory: Laboratory Results - last 72 hr 09/01/18 09/01/18 09/01/18 17:04 17:20 17:20 WBC RBC Hgb Hct MCV MCH MCHC RDW Plt Count MPV Prelim Diff (Auto) Neut % (Auto) Lymph % (Auto) Wallace % (Auto) Eos % (Auto) Baso % (Auto) Neut # (Auto) Lymph # (Auto) Wallace # (Auto) Eos # (Auto) Baso # (Auto) WBC Differential Seg Neuts % (Manual) Band Neuts % (Manual) Lymphocytes % (Manual) Monocytes % (Manual) Metamyelocytes % (Man) Abs Neuts (Manual) Nucleated RBCs/100 WBC Differential Comment Toxic Granulation Toxic Vacuolation Platelet Estimate Platelet Morphology Ovalocytes PT INR APTT Fibrinogen Puncture Site Art line Patient Temperature 98.6 O2 Saturation 97 ABG pH 7.55 H* ABG pCO2 22 L* ABG pO2 173 H ABG HCO3 19 L ABG O2 Content 14.1 ABG Base Excess -3.0 L ABG Methemoglobin 1.7 Parveen Test Hemoglobin 10.1 L Carboxyhemoglobin 0.9 O2 Delivery Device Ventilator Vent Setting Prvc ac Inspired O2 50 Critical Value Yes Sodium 137 Potassium 4.1 Chloride 98 Carbon Dioxide 21.1 Anion Gap 18 H BUN 51 H Creatinine 3.28 H Estimated GFR 18 L POC Glucose Random Glucose 272 H Lactic Acid 6.8 H* Calcium 6.8 L* Prot Corrected Calcium 7.8 L Magnesium 1.7 Total Bilirubin 2.7 H Direct Bilirubin Ind[place] AST 29526 H ALT 5779 H Alkaline Phosphatase 73 Troponin I 1.62 H* Total Protein 5.2 L Albumin 2.7 L Random Vancomycin 09/01/18 09/01/18 09/01/18 17:20 17:52 23:28 WBC RBC Hgb Hct MCV MCH MCHC RDW Plt Count MPV Prelim Diff (Auto) Neut % (Auto) Lymph % (Auto) Wallace % (Auto) Eos % (Auto) Baso % (Auto) Neut # (Auto) Lymph # (Auto) Wallace # (Auto) Eos # (Auto) Baso # (Auto) WBC Differential Seg Neuts % (Manual) Band Neuts % (Manual) Lymphocytes % (Manual) Monocytes % (Manual) Metamyelocytes % (Man) Abs Neuts (Manual) Nucleated RBCs/100 WBC Differential Comment Toxic Granulation Toxic Vacuolation Platelet Estimate Platelet Morphology Ovalocytes PT 86.7 H D INR 8.7 H* APTT Fibrinogen Puncture Site Patient Temperature O2 Saturation ABG pH ABG pCO2 ABG pO2 ABG HCO3 ABG O2 Content ABG Base Excess ABG Methemoglobin Parveen Test Hemoglobin Carboxyhemoglobin O2 Delivery Device Vent Setting Inspired O2 Critical Value Sodium Potassium Chloride Carbon Dioxide Anion Gap BUN Creatinine Estimated GFR POC Glucose 265 H 234 H Random Glucose Lactic Acid Calcium Prot Corrected Calcium Magnesium Total Bilirubin Direct Bilirubin Indirect Bilirubin AST ALT Alkaline Phosphatase Troponin I Total Protein Albumin Random Vancomycin 09/02/18 09/02/18 09/02/18 06:23 07:30 07:30 WBC RBC Hgb Hct MCV MCH MCHC RDW Plt Count MPV Prelim Diff (Auto) Neut % (Auto) Lymph % (Auto) Wallace % (Auto) Eos % (Auto) Baso % (Auto) Neut # (Auto) Lymph # (Auto) Wallace # (Auto) Eos # (Auto) Baso # (Auto) WBC Differential Seg Neuts % (Manual) Band Neuts % (Manual) Lymphocytes % (Manual) Monocytes % (Manual) Metamyelocytes % (Man) Abs Neuts (Manual) Nucleated RBCs/100 WBC Differential Comment Toxic Granulation Toxic Vacuolation Platelet Estimate Platelet Morphology Ovalocytes PT INR APTT Fibrinogen Puncture Site Patient Temperature O2 Saturation ABG pH ABG pCO2 ABG pO2 ABG HCO3 ABG O2 Content ABG Base Excess ABG Methemoglobin Parveen Test Hemoglobin Carboxyhemoglobin O2 Delivery Device Vent Setting Inspired O2 Critical Value Sodium Potassium Chloride Carbon Dioxide Anion Gap BUN Creatinine Estimated GFR POC Glucose 200 H Random Glucose Lactic Acid 4.5 H* Calcium Prot Corrected Calcium Magnesium Total Bilirubin Direct Bilirubin Indirect Bilirubin AST ALT Alkaline Phosphatase Troponin I Total Protein Albumin Random Vancomycin 14.4 09/02/18 09/02/18 09/02/18 07:30 07:30 07:30 WBC 9.3 RBC 3.45 L Hgb 10.6 L Hct 31.9 L MCV 92.6 D MCH 30.8 MCHC 33.3 RDW 14.7 Plt Count 172 D MPV 8.7 Prelim Diff (Auto) Slide review pending Neut % (Auto) 90.1 H Lymph % (Auto) 6.3 L Wallace % (Auto) 3.4 Eos % (Auto) 0.0 Baso % (Auto) 0.2 Neut # (Auto) 8.4 H Lymph # (Auto) 0.6 L Wallace # (Auto) 0.3 Eos # (Auto) 0.0 Baso # (Auto) 0.0 WBC Differential Manual diff final Seg Neuts % (Manual) 86 H Band Neuts % (Manual) 6 Lymphocytes % (Manual) 6 L Monocytes % (Manual) 2 Metamyelocytes % (Man) Abs Neuts (Manual) 8.6 H Nucleated RBCs/100 WBC 1 H Differential Comment . Toxic Granulation 1+ H Toxic Vacuolation Present H Platelet Estimate Normal Platelet Morphology Normal Ovalocytes PT 89.3 H INR 9.0 H* APTT Fibrinogen Puncture Site Patient Temperature O2 Saturation ABG pH ABG pCO2 ABG pO2 ABG HCO3 ABG O2 Content ABG Base Excess ABG Methemoglobin Parveen Test Hemoglobin Carboxyhemoglobin O2 Delivery Device Vent Setting Inspired O2 Critical Value Sodium 137 Potassium 3.9 Chloride 96 L Carbon Dioxide 28.5 Anion Gap 13 BUN 65 H Creatinine 3.52 H Estimated GFR 17 L POC Glucose Random Glucose 193 H Lactic Acid Calcium 7.0 L* Prot Corrected Calcium 8.0 L Magnesium Total Bilirubin 3.0 H Direct Bilirubin Indirect Bilirubin AST 8258 H ALT 5179 H Alkaline Phosphatase 78 Troponin I Total Protein 5.2 L Albumin 2.7 L Random Vancomycin 09/02/18 09/02/18 09/02/18 10:00 11:22 16:25 WBC RBC Hgb Hct MCV MCH MCHC RDW Plt Count MPV Prelim Diff (Auto) Neut % (Auto) Lymph % (Auto) Wallace % (Auto) Eos % (Auto) Baso % (Auto) Neut # (Auto) Lymph # (Auto) Wallace # (Auto) Eos # (Auto) Baso # (Auto) WBC Differential Seg Neuts % (Manual) Band Neuts % (Manual) Lymphocytes % (Manual) Monocytes % (Manual) Metamyelocytes % (Man) Abs Neuts (Manual) Nucleated RBCs/100 WBC Differential Comment Toxic Granulation Toxic Vacuolation Platelet Estimate Platelet Morphology Ovalocytes PT 63.6 H D INR 6.4 H* APTT Fibrinogen Puncture Site Art line Patient Temperature 98.6 O2 Saturation 96 ABG pH 7.47 H ABG pCO2 32 L ABG pO2 139 H ABG HCO3 23 ABG O2 Content 14.4 ABG Base Excess -0.7 ABG Methemoglobin 1.7 Parveen Test Present Hemoglobin 10.4 L Carboxyhemoglobin 0.9 O2 Delivery Device Ventilator Vent Setting Ac/14/550/+5 Inspired O2 40 Critical Value No Sodium Potassium Chloride Carbon Dioxide Anion Gap BUN Creatinine Estimated GFR POC Glucose 149 H Random Glucose Lactic Acid Calcium Prot Corrected Calcium Magnesium Total Bilirubin Direct Bilirubin Indirect Bilirubin AST ALT Alkaline Phosphatase Troponin I Total Protein Albumin Random Vancomycin 09/02/18 09/02/18 09/02/18 16:25 16:25 17:43 WBC RBC Hgb Hct MCV MCH MCHC RDW Plt Count MPV Prelim Diff (Auto) Neut % (Auto) Lymph % (Auto) Wallace % (Auto) Eos % (Auto) Baso % (Auto) Neut # (Auto) Lymph # (Auto) Wallace # (Auto) Eos # (Auto) Baso # (Auto) WBC Differential Seg Neuts % (Manual) Band Neuts % (Manual) Lymphocytes % (Manual) Monocytes % (Manual) Metamyelocytes % (Man) Abs Neuts (Manual) Nucleated RBCs/100 WBC Differential Comment Toxic Granulation Toxic Vacuolation Platelet Estimate Platelet Morphology Ovalocytes PT INR APTT Fibrinogen Puncture Site Patient Temperature O2 Saturation ABG pH ABG pCO2 ABG pO2 ABG HCO3 ABG O2 Content ABG Base Excess ABG Methemoglobin Parveen Test Hemoglobin Carboxyhemoglobin O2 Delivery Device Vent Setting Inspired O2 Critical Value Sodium 136 Potassium 3.7 Chloride 96 L Carbon Dioxide 27.6 Anion Gap 12 BUN 67 H Creatinine 3.48 H Estimated GFR 17 L POC Glucose 144 H Random Glucose 136 H Lactic Acid 3.8 H Calcium 7.4 L* Prot Corrected Calcium 8.5 Magnesium Total Bilirubin 3.1 H Direct Bilirubin Indirect Bilirubin AST 5193 H ALT 4466 H Alkaline Phosphatase 79 Troponin I Total Protein 5.1 L Albumin 2.8 L Random Vancomycin 09/02/18 09/03/18 09/03/18 23:42 05:02 05:55 WBC 7.4 RBC 3.65 L Hgb 11.2 L Hct 33.1 L MCV 90.8 MCH 30.6 MCHC 33.7 RDW 14.8 Plt Count 167 MPV 8.7 Prelim Diff (Auto) Slide review pending Neut % (Auto) 91.5 H Lymph % (Auto) 4.9 L Wallace % (Auto) 3.4 Eos % (Auto) 0.0 Baso % (Auto) 0.2 Neut # (Auto) 6.8 Lymph # (Auto) 0.4 L Wallace # (Auto) 0.3 Eos # (Auto) 0.0 Baso # (Auto) 0.0 WBC Differential Manual diff final Seg Neuts % (Manual) 88 H Band Neuts % (Manual) 2 Lymphocytes % (Manual) 6 L Monocytes % (Manual) 2 Metamyelocytes % (Man) 2 H Abs Neuts (Manual) 6.8 Nucleated RBCs/100 WBC 6 H Differential Comment . Toxic Granulation Toxic Vacuolation Platelet Estimate Normal Platelet Morphology Normal Ovalocytes 1+ H PT INR APTT Fibrinogen Puncture Site Patient Temperature O2 Saturation ABG pH ABG pCO2 ABG pO2 ABG HCO3 ABG O2 Content ABG Base Excess ABG Methemoglobin Parveen Test Hemoglobin Carboxyhemoglobin O2 Delivery Device Vent Setting Inspired O2 Critical Value Sodium Potassium Chloride Carbon Dioxide Anion Gap BUN Creatinine Estimated GFR POC Glucose 146 H 176 H Random Glucose Lactic Acid Calcium Prot Corrected Calcium Magnesium Total Bilirubin Direct Bilirubin Indirect Bilirubin AST ALT Alkaline Phosphatase Troponin I Total Protein Albumin Random Vancomycin 09/03/18 09/03/18 09/03/18 05:55 08:05 08:05 WBC RBC Hgb Hct MCV MCH MCHC RDW Plt Count MPV Prelim Diff (Auto) Neut % (Auto) Lymph % (Auto) Wallace % (Auto) Eos % (Auto) Baso % (Auto) Neut # (Auto) Lymph # (Auto) Wallace # (Auto) Eos # (Auto) Baso # (Auto) WBC Differential Seg Neuts % (Manual) Band Neuts % (Manual) Lymphocytes % (Manual) Monocytes % (Manual) Metamyelocytes % (Man) Abs Neuts (Manual) Nucleated RBCs/100 WBC Differential Comment Toxic Granulation Toxic Vacuolation Platelet Estimate Platelet Morphology Ovalocytes PT 45.4 H D INR 4.5 APTT 45.9 H Fibrinogen Puncture Site Patient Temperature O2 Saturation ABG pH ABG pCO2 ABG pO2 ABG HCO3 ABG O2 Content ABG Base Excess ABG Methemoglobin Parveen Test Hemoglobin Carboxyhemoglobin O2 Delivery Device Vent Setting Inspired O2 Critical Value Sodium 139 Potassium 3.5 Chloride 97 L Carbon Dioxide 26.1 Anion Gap 16 H BUN 70 H Creatinine 3.52 H Estimated GFR POC Glucose Random Glucose 156 H Lactic Acid Calcium 7.7 L Prot Corrected Calcium Magnesium Total Bilirubin 4.1 H Direct Bilirubin Indirect Bilirubin AST 2611 H ALT 3836 H Alkaline Phosphatase 83 Troponin I Total Protein 5.4 L Albumin 2.8 L Random Vancomycin 09/03/18 09/03/18 09/03/18 08:05 08:05 11:25 WBC RBC Hgb Hct MCV MCH MCHC RDW Plt Count MPV Prelim Diff (Auto) Neut % (Auto) Lymph % (Auto) Wallace % (Auto) Eos % (Auto) Baso % (Auto) Neut # (Auto) Lymph # (Auto) Wallace # (Auto) Eos # (Auto) Baso # (Auto) WBC Differential Seg Neuts % (Manual) Band Neuts % (Manual) Lymphocytes % (Manual) Monocytes % (Manual) Metamyelocytes % (Man) Abs Neuts (Manual) Nucleated RBCs/100 WBC Differential Comment Toxic Granulation Toxic Vacuolation Platelet Estimate Platelet Morphology Ovalocytes PT INR APTT Fibrinogen 185 L Puncture Site Patient Temperature O2 Saturation ABG pH ABG pCO2 ABG pO2 ABG HCO3 ABG O2 Content ABG Base Excess ABG Methemoglobin Parveen Test Hemoglobin Carboxyhemoglobin O2 Delivery Device Vent Setting Inspired O2 Critical Value Sodium Potassium Chloride Carbon Dioxide Anion Gap BUN Creatinine Estimated GFR POC Glucose 142 H Random Glucose Lactic Acid 3.4 H Calcium Prot Corrected Calcium Magnesium Total Bilirubin Direct Bilirubin Indirect Bilirubin AST ALT Alkaline Phosphatase Troponin I Total Protein Albumin Random Vancomycin 09/03/18 09/03/18 09/04/18 17:15 23:55 03:40 WBC 9.0 RBC 3.96 L Hgb 11.8 L Hct 36.0 L MCV 90.8 MCH 29.8 MCHC 32.8 RDW 14.7 Plt Count 190 MPV 8.9 Prelim Diff (Auto) Slide review pending Neut % (Auto) 90.8 H Lymph % (Auto) 3.6 L Wallace % (Auto) 5.6 Eos % (Auto) 0.0 Baso % (Auto) 0.0 Neut # (Auto) 8.1 H Lymph # (Auto) 0.3 L Wallace # (Auto) 0.5 Eos # (Auto) 0.0 Baso # (Auto) 0.0 WBC Differential Manual diff final Seg Neuts % (Manual) 89 H Band Neuts % (Manual) 1 Lymphocytes % (Manual) 1 L Monocytes % (Manual) 8 Metamyelocytes % (Man) 1 Abs Neuts (Manual) 8.2 H Nucleated RBCs/100 WBC 3 H Differential Comment . Toxic Granulation Toxic Vacuolation Platelet Estimate Normal Platelet Morphology Normal Ovalocytes PT INR APTT Fibrinogen Puncture Site Patient Temperature O2 Saturation ABG pH ABG pCO2 ABG pO2 ABG HCO3 ABG O2 Content ABG Base Excess ABG Methemoglobin Parveen Test Hemoglobin Carboxyhemoglobin O2 Delivery Device Vent Setting Inspired O2 Critical Value Sodium Potassium Chloride Carbon Dioxide Anion Gap BUN Creatinine Estimated GFR POC Glucose 181 H 139 H Random Glucose Lactic Acid Calcium Prot Corrected Calcium Magnesium Total Bilirubin Direct Bilirubin Indirect Bilirubin AST ALT Alkaline Phosphatase Troponin I Total Protein Albumin Random Vancomycin 09/04/18 09/04/18 09/04/18 03:40 03:40 03:40 WBC RBC Hgb Hct MCV MCH MCHC RDW Plt Count MPV Prelim Diff (Auto) Neut % (Auto) Lymph % (Auto) Wallace % (Auto) Eos % (Auto) Baso % (Auto) Neut # (Auto) Lymph # (Auto) Wallace # (Auto) Eos # (Auto) Baso # (Auto) WBC Differential Seg Neuts % (Manual) Band Neuts % (Manual) Lymphocytes % (Manual) Monocytes % (Manual) Metamyelocytes % (Man) Abs Neuts (Manual) Nucleated RBCs/100 WBC Differential Comment Toxic Granulation Toxic Vacuolation Platelet Estimate Platelet Morphology Ovalocytes PT 33.9 H D INR 3.4 APTT Fibrinogen Puncture Site Patient Temperature O2 Saturation ABG pH ABG pCO2 ABG pO2 ABG HCO3 ABG O2 Content ABG Base Excess ABG Methemoglobin Parveen Test Hemoglobin Carboxyhemoglobin O2 Delivery Device Vent Setting Inspired O2 Critical Value Sodium 140 Potassium 3.0 L Chloride 100 Carbon Dioxide 25.1 Anion Gap 15 BUN 73 H Creatinine 3.33 H Estimated GFR 18 L POC Glucose Random Glucose 159 H Lactic Acid Calcium 8.0 L Prot Corrected Calcium Magnesium 1.9 Total Bilirubin 6.4 H Cancelled Direct Bilirubin 4.5 H Cancelled Indirect Bilirubin 1.9 H Cancelled AST 898 H ALT 2795 H Alkaline Phosphatase 84 Troponin I Total Protein 5.7 L Albumin 3.1 L Random Vancomycin 18.1 09/04/18 09/04/18 09/04/18 05:52 11:56 15:55 WBC 8.8 RBC 3.18 L Hgb 9.9 L Hct 29.1 L MCV 91.4 MCH 31.1 MCHC 34.0 RDW 15.0 Plt Count 169 MPV 8.7 Prelim Diff (Auto) Neut % (Auto) Lymph % (Auto) Wallace % (Auto) Eos % (Auto) Baso % (Auto) Neut # (Auto) Lymph # (Auto) Wallace # (Auto) Eos # (Auto) Baso # (Auto) WBC Differential Seg Neuts % (Manual) Band Neuts % (Manual) Lymphocytes % (Manual) Monocytes % (Manual) Metamyelocytes % (Man) Abs Neuts (Manual) Nucleated RBCs/100 WBC Differential Comment Toxic Granulation Toxic Vacuolation Platelet Estimate Platelet Morphology Ovalocytes PT INR APTT Fibrinogen Puncture Site Patient Temperature O2 Saturation ABG pH ABG pCO2 ABG pO2 ABG HCO3 ABG O2 Content ABG Base Excess ABG Methemoglobin Parveen Test Hemoglobin Carboxyhemoglobin O2 Delivery Device Vent Setting Inspired O2 Critical Value Sodium Potassium Chloride Carbon Dioxide Anion Gap BUN Creatinine Estimated GFR POC Glucose 145 H 170 H Random Glucose Lactic Acid Calcium Prot Corrected Calcium Magnesium Total Bilirubin Direct Bilirubin Indirect Bilirubin AST ALT Alkaline Phosphatase Troponin I Total Protein Albumin Random Vancomycin 09/04/18 15:55 WBC RBC Hgb Hct MCV MCH MCHC RDW Plt Count MPV Prelim Diff (Auto) Neut % (Auto) Lymph % (Auto) Wallace % (Auto) Eos % (Auto) Baso % (Auto) Neut # (Auto) Lymph # (Auto) Wallace # (Auto) Eos # (Auto) Baso # (Auto) WBC Differential Seg Neuts % (Manual) Band Neuts % (Manual) Lymphocytes % (Manual) Monocytes % (Manual) Metamyelocytes % (Man) Abs Neuts (Manual) Nucleated RBCs/100 WBC Differential Comment Toxic Granulation Toxic Vacuolation Platelet Estimate Platelet Morphology Ovalocytes PT 33.5 H INR 3.3 APTT 53.2 H Fibrinogen Puncture Site Patient Temperature O2 Saturation ABG pH ABG pCO2 ABG pO2 ABG HCO3 ABG O2 Content ABG Base Excess ABG Methemoglobin Parveen Test Hemoglobin Carboxyhemoglobin O2 Delivery Device Vent Setting Inspired O2 Critical Value Sodium Potassium Chloride Carbon Dioxide Anion Gap BUN Creatinine Estimated GFR POC Glucose Random Glucose Lactic Acid Calcium Prot Corrected Calcium Magnesium Total Bilirubin Direct Bilirubin Indirect Bilirubin AST ALT Alkaline Phosphatase Troponin I Total Protein Albumin Random Vancomycin Result Diagrams: 09/04/18 15:55 09/04/18 03:40 Microbiology: Microbiology 09/02/18 21:03 Aerobic Blood Culture - Preliminary Blood - Peripheral No growth in 2 days Anaerobic Blood Culture - Preliminary No growth in 2 days 09/02/18 21:08 Aerobic Blood Culture - Preliminary Blood - Peripheral No growth in 2 days Anaerobic Blood Culture - Preliminary No growth in 2 days 09/01/18 00:05 Aerobic Blood Culture - Preliminary Blood - Peripheral No growth in 3 days Anaerobic Blood Culture - Preliminary No growth in 3 days 08/31/18 22:20 Aerobic Blood Culture - Final Blood - Peripheral Viridans streptococcus grp Anaerobic Blood Culture - Preliminary No growth in 4 days 09/01/18 00:05 Gram Stain - Final Sputum - Endotracheal Sputum Culture - Final Light growth normal respiratory [place] Imaging: Abdomen/Pelvis CT 09/01/18 00:00 CONCLUSION: 1. Trace ascites, nonspecific. Also mild body wall edema. No organized or drainable fluid. 2. Diverticulosis of the sigmoid colon. No diverticulitis or other acute inflammatory changes. 3. Atherosclerosis of the aorta. Chest CT 09/01/18 00:00 CONCLUSION: 1. Bilateral pneumonia, especially right upper lobe. 2. Small bilateral pleural effusions; dependent/compressive atelectasis of both lower lobes. 3. Panchamber enlargement of the heart. Chest X-Ray 09/03/18 00:00 CONCLUSION: Slight improvement of right lung and left basilar density. Head CT 09/04/18 00:00 CONCLUSION: 1. Negative noncontrast head CT. 2. Suboptimal study secondary to motion artifact. . Liver Ultrasound 09/04/18 00:00 CONCLUSION: 1. Small nodular liver with trace ascites 2. No focal mass. Procedures: * 09/03/18 - medically extubated. * Cardioversion * central line placement * Intubated Assessment and Plan - Disease Oriented Problem List (1) Cardiomyopathy (2) Atrial fibrillation (3) V-tach (4) Atrial fibrillation with rapid ventricular response (5) Renal failure, acute on chronic (6) Shortness of breath on exertion (7) Hyperlipidemia (8) Respiratory failure (9) Metabolic acidosis (10) Shock liver (11) Bilateral pneumonia - Symptom Scale (1) Pain 0-10 Scale: Unable to quantify (2) Dyspnea 0-10 Scale: Unable to quantify (3) Confusion 0-10 Scale: Unable to quantify (4) Constipation 0-10 Scale: Unable to quantify Comment: LBM recorded 08/30/18, will add dulcolax Pertinent Non-Medical Issues: Psychosocial: . Has children and grandchildren he enjoys spending time with. Retired. Was in the . From [place], moved to [place] ago. Has 1 daughter and 1 son, and step-children. Spiritual: Declines neighborhood worker support. Friends and family continue to pray for him. Legal:Patient is not capacitated to make his own health care decisions, uncertain if he will regain capacity. No written advance directives. According to [place] statutes, health care proxy decision making falls to his spouse, Jovita Ravi. Ethical issues impacting care:None. Important Contacts: Health care proxy, : Jovita Ravi: [phone] Prognosis: Patient with A. Fib s/p cardioversion now back in A. Fib, EF 20%, AV vegetation , renal and liver dysfunction, worsening. He appears to be declining. Overall prognosis appears poor. Code Status: Full Code Plan: * Patient is not capacitated to make his own health care decisions, uncertain if he will regain capacity. No written advance directives. According to [place] statutes, health care proxy decision making falls to his spouse, Opla Ravi. * FULL CODE * Goals remain aggressive including FULL CODE/ reintubation if needed. Family will need to hear prognosis from other medical providers, especially if his condition continues to worsen. * Dulcolax supp now and daily PRN. Pt unable to take PO meds. * Anticipate arrival of son on 09/05/18. Daughter, Winnie is here from [place]. * SYMPTOMS: pain and dyspnea: sedated on mech vent, no obvious signs of discomfort or SOB. No new medication recommendations at this time. * Palliative care will continue to follow throughout hsopital course to assist with symptom management and clarification of medical treatment goals. Attestation Attestation: To help prompt me to consider important information that might be impacting today's encounter and assessment, information from prior notes written by myself or my colleagues may have been "brought forward" into today's note. My signature on this note, however, is an attestation that I personally performed the exam, history, and/or decision-making noted today, and, unless otherwise indicated, the interactions with patient, family, and staff as well as the review of records all occurred today. I also attest that the listed assessment and stated plan reflect my best clinical judgment today based on the combination of historical information, prior notes, and today's exam/ interactions. When time spent is documented, it refers only to time spent today by the signer, or if indicated, combined time spent today by collaborating physician/nurse practitioner.
[2018-09-04] MEDS: Latanoprost 0.005% Opth Drops 2.5 ML Bottle EACH EYE SCH (17:42)
--- NOTE | 2018-09-04 18:18 | P.PNCA ---
Subjective Interval history: Patient was extubated yesterday but is confused. Patient is back in atrial fibrillation s/p cardioversion. at bedside. Medications and Allergies Allergies Allergy/AdvReac Type Severity Reaction Status Date / Time prednisone Allergy Severe Weight loss Verified 08/28/18 14:33 penicillin G Allergy Intermediate Hives Verified 08/28/18 14:33 Sulfa (Sulfonamide Allergy Intermediate Hives Verified 08/28/18 14:33 Antibiotics) Home Medications Medication Instructions Recorded Confirmed Type fenofibrate 160 mg PO DAILY 07/22/18 08/28/18 History latanoprost 1 drp OPHTHALMIC (EYE) QPM 07/22/18 08/28/18 History levothyroxine [Synthroid] 75 mcg PO DAILY 07/22/18 08/28/18 History pitavastatin calcium [Livalo] 2 mg PO 3XW 07/22/18 08/28/18 History metoprolol tartrate 25 mg PO BID 08/28/18 08/28/18 History rivaroxaban [Xarelto] 15 mg PO QPM 08/28/18 08/28/18 History torsemide 20 mg PO EVERY OTHER DAY 08/28/18 08/28/18 History amiodarone 200 mg PO 08/29/18 History Active Medications: Active Medications Albuterol (Duoneb Neb (Prn)) 1 ampul NEB Q2HR NEB PRN PRN Reason: SHORTNESS OF BREATH Albuterol (Duoneb Neb (Jaspal)) 1 ampul NEB Q4HR NEB [facility] Last Admin: 09/04/18 16:44 Dose: 1 ampul Amiodarone HCl (Cordarone) 200 mg PO BID [facility] Last Admin: 09/01/18 00:32 Dose: Not Given Bisacodyl (Dulcolax Supp) 10 mg RECTAL DAILY PRN PRN Reason: CONSTIPATION Bumetanide (Bumex Inj) 1 mg IV.PUSH Q12H [facility] Last Admin: 09/04/18 08:00 Dose: 1 mg Chlorhexidine Gluconate (Peridex 0.12% Oral Kit) 15 ml OROPHARYNG BID@0800, 2000 [facility] Last Admin: 09/04/18 08:01 Dose: Not Given Chlorhexidine Gluconate (Chlorhexidine 2% Cloth) 3 pack TOPICAL DAILY@0400 [facility] Stop: 09/06/18 03:59 Last Admin: 09/04/18 03:24 Dose: 3 pack Chlorhexidine Gluconate (Chlorhexidine 2% Cloth) 3 pack TOPICAL DAILY@0400 PRN PRN Reason: Extra cloth needed Stop: 09/06/18 03:59 Dextrose (D50w Vial) 50 ml IV.PUSH UNSCH PRN PRN Reason: PER HYPOGLYCEMIA PROTOCOL Famotidine (Pepcid Pf Inj) 10 mg IV.PUSH Q12HR [facility] Last Admin: 09/04/18 08:00 Dose: 10 mg Glucagon (Glucagon Inj) 1 mg OTHER PRN PRN PRN Reason: for Hypoglycemia Protocol Hydrocortisone Sodium Succinate (Solucortef Inj) 100 mg IV.PUSH Q8HR [facility] Last Admin: 09/04/18 14:57 Dose: 100 mg Diltiazem HCl 125 mg/ Sodium (Chloride) 125 mls @ 5 mls/hr IV.CONT TITRATE PRN ; Protocol PRN Reason: Per Protocol Last Titration: 08/29/18 13:59 Dose: Infused Amiodarone HCl 450 mg/ (Dextrose) 250 mls @ 33.33 mls/hr IV.CONT TITRATE PRN; Protocol PRN Reason: Per Protocol Last Admin: 09/04/18 07:30 Dose: 0.5 mg/min, 16.66 mls/hr Dopamine HCl 800 mg/ Sodium (Chloride) 520 mls @ 8.07 mls/hr IV.CONT TITRATE PRN; Protocol PRN Reason: See Protocol Last Titration: 08/31/18 23:00 Dose: Infused Phenylephrine HCl 80 mg/ (Sodium Chloride) 500 mls @ 15 mls/hr IV.CONT TITRATE PRN; Protocol PRN Reason: See prorocol Last Titration: 09/01/18 14:35 Dose: Infused Norepinephrine Bitartrate 4 mg (/ Sodium Chloride) 250 mls @ 7.5 mls/hr IV.SIG TITRATE PRN; Protocol PRN Reason: Per Protocol Last Titration: 09/03/18 07:00 Dose: Infused Dobutamine HCl 500 mg/ (Dextrose) 250 mls @ 5.17 mls/hr IV.CONT .Q24H [facility] Last Infusion: 09/04/18 10:33 Dose: Infused Sodium Chloride (Ns Inj) 1,000 mls @ 0 mls/hr IV.SIG BOLUS JASPAL Azithromycin 500 mg/ Sodium (Chloride) 250 mls @ 250 mls/hr IV.SIG Q24H [facility] Last Infusion: 09/04/18 05:52 Dose: Infused Fentanyl (Fentanyl 10 Mcg/Ml Premix Drip) 2,500 mcg in 250 mls @ 5 mls/hr IV.SIG TITRATE PRN; Protocol PRN Reason: Per Protocol Last Titration: 09/03/18 15:06 Dose: Infused Vasopressin 40 unit/ Dextrose 100 mls @ 6 mls/hr IV.CONT CONT [facility]ASPAL; Protocol Last Infusion: 09/03/18 07:00 Dose: Infused Dexmedetomidine HCl 200 mcg/ (Sodium Chloride) 50 mls @ 3.88 mls/hr IV.CONT TITRATE PRN; Protocol PRN Reason: AGITATION Ceftriaxone Sodium 2,000 mg/ (Sodium Chloride) 100 mls @ 200 mls/hr IV.SIG Q24H [facility] Last Infusion: 09/04/18 16:48 Dose: Infused Phytonadione 10 mg/ Dextrose 51 mls @ 102 mls/hr IV.SIG ONCE ONE Stop: 09/04/18 18:29 Last Admin: 09/04/18 17:42 Dose: 102 mls/hr Insulin Human Regular (Novolin R Correctional Sugar Inj) 0 units SQ Q6HR [facility]; Protocol Last Admin: 09/04/18 17:42 Dose: 5 units Latanoprost (Xalatan 0.005% Opth Drops) 1 drop EACH EYE QPM [facility] Last Admin: 09/04/18 17:42 Dose: 1 drop Levothyroxine Sodium (Synthroid) 75 mcg PO DAILY@0600 [facility] Last Admin: 09/04/18 05:54 Dose: Not Given Metoprolol Tartrate (Lopressor) 25 mg PO BID [facility] Last Admin: 09/01/18 00:33 Dose: Not Given Miscellaneous Medication () 1 each OROPHARYNG 0000,0400,1200,1600 [facility] Last Admin: 09/04/18 16:47 Dose: Not Given Morphine Sulfate (Morphine Inj) 4 mg IV.PUSH Q2H PRN PRN Reason: Pain6-10 Last Admin: 09/01/18 08:59 Dose: 4 mg Rivaroxaban (Xarelto) 15 mg PO QPM [facility] Last Admin: 08/31/18 17:44 Dose: 15 mg Sodium Chloride (Ns Flush) 2 ml IV.FLUSH BID [facility] Last Admin: 09/04/18 08:01 Dose: 2 ml Sodium Chloride (Ns Flush) 2 ml IV.FLUSH PRN PRN PRN Reason: FLUSH AFTER USING IV ACCESS Terbutaline Sulfate (Brethine Inj) 1 mg SQ UNSCH PRN PRN Reason: For Extravasation Physical Exam Vital signs: Vital Signs 09/03/18 19:00 09/03/18 20:00 09/03/18 21:00 Temperature 97.4 F L Pulse Rate 91 H 91 H 98 H Respiratory Rate 20 24 26 H Blood Pressure 112/70 120/69 115/73 Pulse Oximetry 96 95 94 L 09/03/18 22:00 09/03/18 23:00 09/04/18 00:00 Temperature 97.8 F Pulse Rate 101 H 105 H 106 H Respiratory Rate 19 16 22 Blood Pressure 115/73 124/66 114/73 Pulse Oximetry 94 L 95 95 09/04/18 01:00 09/04/18 02:00 09/04/18 03:00 Temperature Pulse Rate 94 H 88 98 H Respiratory Rate 18 15 23 Blood Pressure 107/70 117/64 Pulse Oximetry 93 L 94 L 93 L 09/04/18 03:01 09/04/18 04:00 09/04/18 05:00 Temperature 97.7 F Pulse Rate 91 H 98 H 104 H Respiratory Rate 19 19 21 Blood Pressure 126/71 119/74 136/78 Pulse Oximetry 93 L 92 L 95 09/04/18 06:00 09/04/18 07:00 09/04/18 08:00 Temperature 98.3 F Pulse Rate 120 H 122 H 121 H Respiratory Rate 22 24 20 Blood Pressure 100/72 117/68 119/70 Pulse Oximetry 92 L 93 L 91 L 09/04/18 09:00 09/04/18 10:00 09/04/18 10:59 Temperature Pulse Rate 109 H 112 H Respiratory Rate 17 29 H Blood Pressure 120/73 92/57 L 96/62 L Pulse Oximetry 93 L 09/04/18 11:00 09/04/18 11:18 09/04/18 11:25 Temperature Pulse Rate 111 H 91 H 88 Respiratory Rate 27 H 12 11 L Blood Pressure 85/58 L 90/52 L 83/53 L Pulse Oximetry 93 L 94 L 94 L 09/04/18 11:29 09/04/18 11:30 09/04/18 11:45 Temperature Pulse Rate 88 91 H 111 H Respiratory Rate 12 11 L 43 H Blood Pressure 83/51 L 81/53 L 108/71 Pulse Oximetry 94 L 94 L 88 L 09/04/18 12:00 09/04/18 12:16 09/04/18 12:30 Temperature 98 F Pulse Rate 99 H 94 H 93 H Respiratory Rate 28 H 11 L 14 Blood Pressure 105/78 92/55 L 99/57 L Pulse Oximetry 95 94 L 94 L 09/04/18 12:45 09/04/18 13:00 09/04/18 13:12 Temperature Pulse Rate 105 H 106 H 106 H Respiratory Rate 41 H 28 H 22 Blood Pressure 91/58 L 134/71 Pulse Oximetry 94 L 93 L 97 09/04/18 13:15 09/04/18 13:30 09/04/18 13:45 Temperature Pulse Rate 87 107 H 116 H Respiratory Rate 21 26 H 28 H Blood Pressure 117/61 105/61 103/59 L Pulse Oximetry 97 94 L 09/04/18 14:00 09/04/18 14:15 09/04/18 14:30 Temperature Pulse Rate 109 H 111 H 107 H Respiratory Rate 27 H 24 31 H Blood Pressure 115/75 100/58 L 103/64 Pulse Oximetry 93 L 93 L 93 L 09/04/18 14:45 09/04/18 15:00 09/04/18 15:15 Temperature Pulse Rate 107 H 105 H 101 H Respiratory Rate 26 H 25 H 25 H Blood Pressure 103/59 L 109/55 L 96/58 L Pulse Oximetry 09/04/18 15:30 09/04/18 15:45 09/04/18 16:00 Temperature 97.3 F L Pulse Rate 105 H 96 H 103 H Respiratory Rate 21 11 L 24 Blood Pressure 92/53 L 87/51 L 93/63 L Pulse Oximetry 09/04/18 16:15 09/04/18 16:30 09/04/18 16:45 Temperature Pulse Rate 106 H 107 H 105 H Respiratory Rate 29 H 25 H 20 Blood Pressure 90/66 L 104/65 97/53 L Pulse Oximetry Intake & Output 09/03/18 09/04/18 09/04/18 18:59 06:59 18:59 Intake Total 540 / 540 500 / 500 1087.5 / 1087.5 Output Total 1700 / 1700 1775 / 1775 Balance -1160 / -1160 -1275 / -1275 1087.5 / 1087.5 Weight 77.6 kg Intake: IV 540 / 540 500 / 500 1087.5 / 1087.5 KCl 40 mEq Premix Inj 40 meq In 100 / 100 100 ml @ 0 mls/hr .ROUTE .STK- MED ONE Rx#:[id number] Cordarone Inj 450 MG In D5W Inj 250 / 250 250 / 250 241 ML @ 1 MG/MIN 33.33 mls/hr IV.CONT TITRATE PRN Rx#: [id number] Dobutrex Inj 500 MG In D5W Inj 125 / 125 210 ML @ 2.5 MCG/KG/MIN 5.17 mls/hr IV.CONT .Q24H [facility] Rx#: [id number] Pitressin Inj 40 UNIT In D5W 0 / 0 Inj 98 ML @ 0.04 UNITS/MIN 6 mls/hr IV.CONT CONT [facility] Rx#: [id number] Flexbumin 25% Inj 50 ML @ 50 50 / 50 50 / 50 50 / 50 mls/hr IV.SIG Q12H [facility] Rx#: [id number] Azithromycin Inj 500 MG In NS 250 / 250 Inj 250 ML @ 250 mls/hr IV.SIG Q24H [facility] Rx#:[id number] Azactam Inj 2 GM In NS Inj 100 200 / 200 200 / 200 ML @ 200 mls/hr IV.SIG Q8H [facility] Rx#:[id number] Magnesium Sulfate 1 gm/D5W 100 200 / 200 ml Premix 200 ML @ 0 mls/hr IV. SIG .STK-MED ONE Rx#:[id number] Levophed Inj 4 MG In NS Inj 246 0 / 0 ML @ 2 MCG/MIN 7.5 mls/hr IV. SIG TITRATE PRN Rx#:[id number] Vancomycin Inj 1,250 MG In NS 262.5 / 262.5 Inj 250 ML @ 250 mls/hr IV.SIG ONCE ONE Rx#:[id number] Rocephin Inj 2,000 MG In NS Inj 100 / 100 100 ML @ 200 mls/hr IV.SIG Q24H [facility] Rx#:[id number] fentaNYL 10 mcg/mL Premix Drip 40 / 40 2,500 mcg In 250 ml @ 50 MCG/HR 5 mls/hr IV.SIG TITRATE PRN Rx #:[id number] Output: Urine Amount (Catheter) 1700 / 1700 177 / 177 Indwelling Urethral Catheter 170 / 1700 1774 / 177 Other: Date of Last Bowel Movement 08/29/18 09/29/18 08/29/18 - Constitutional mild distress - Routine HEENT Exam Head: Present: normocephalic Eye: Present: PERRL ENT: Present: mucous membranes moist - Routine Neck Exam Present: supple - Routine Respiratory Exam Present: decreased breath sounds, rhonchi - Routine Cardiovascular Exam Present: S1, S2, irregular rhythm - Routine Abdominal Exam Present: normoactive bowel sounds - Routine Extremities Exam Present: full ROM, pulses intact, normal capillary refill. Absent: cyanosis, clubbing, edema - Routine Skin Exam Present: jaundice - Routine Neurological Exam Present: altered mental status Confused - Detailed Neurological Exam: Coma Scale Eye Opening: To sound Verbal Response: Confused Motor Response: Obey commands Ruth Coma Scale Total: 13 - Routine Psychiatric Exam Present: unable to assess - Urinary Catheter Management Indwelling Urethral Catheter Cath placed during this visit: yes, but has since been removed by the nurse Reason for continuing: Decision to DC catheter Insertion date: 08/31/18 Insertion time: 22:00 Removal date: 09/04/18 Removal time: 15:40 Results 09/04/18 15:55 09/04/18 03:40 Cardiac Enzymes 09/02/18 09/03/18 09/04/18 Range/Units 16:25 05:55 03:40 AST 5193 H 2611 H 898 H (15-37) U/L Coagulation 09/03/18 09/03/18 09/04/18 Range/Units 08:05 08:05 03:40 PT 45.4 H D 33.9 H D (9.8-11.6) sec APTT 45.9 H (24.3-30.1) sec 09/04/18 Range/Units 15:55 PT 33.5 H (9.8-11.6) sec APTT 53.2 H (24.3-30.1) sec CBC 09/03/18 09/04/18 09/04/18 Range/Units 05:55 03:40 15:55 WBC 7.4 9.0 8.8 (4.0-11.0) th/mm3 RBC 3.65 L 3.96 L 3.18 L (4.50-5.90) mil/mm3 Hgb 11.2 L 11.8 L 9.9 L (13.0-17.0) gm/dL Hct 33.1 L 36.0 L 29.1 L (39.0-51.0) % Plt Count 167 190 169 (150-450) th/mm3 Neut # (Auto) 6.8 8.1 H (1.8-7.7) th/mm3 Lymph # (Auto) 0.4 L 0.3 L (1.0-4.8) th/mm3 [place] # (Auto) 0.3 0.5 (0.0-0.9) th/mm3 Eos # (Auto) 0.0 0.0 (0.0-0.4) th/mm3 Baso # (Auto) 0.0 0.0 (0.0-0.2) th/mm3 Comprehensive Metabolic Panel 09/02/18 09/03/18 09/04/18 Range/Units 16:25 05:55 03:40 Sodium 136 139 140 (136-145) meq/L Potassium 3.7 3.5 3.0 L (3.5-5.1) meq/L Chloride 96 L 97 L 100 (98-107) meq/L Carbon Dioxide 27.6 26.1 25.1 (21.0-32.0) meq/L BUN 67 H 70 H 73 H (7-18) mg/dL Creatinine 3.48 H 3.52 H 3.33 H (0.60-1.30) mg/dL Calcium 7.4 L* 7.7 L 8.0 L (8.5-10.1) mg/dL Direct Bilirubin 4.5 H (0.0-0.2) mg/dL Indirect Bilirubin 1.9 H (0.0-0.8) mg/dL AST 5193 H 2611 H 898 H (15-37) U/L ALT 4466 H 3836 H 2795 H (12-78) U/L Alkaline Phosphatase 79 83 84 (45-117) U/L Total Protein 5.1 L 5.4 L 5.7 L (6.4-8.2) g/dL Albumin 2.8 L 2.8 L 3.1 L (3.4-5.0) g/dL 09/04/18 Range/Units 03:40 Sodium (136-145) meq/L Potassium (3.5-5.1) meq/L Chloride (98-107) meq/L Carbon Dioxide (21.0-32.0) meq/L BUN (7-18) mg/dL Creatinine (0.60-1.30) mg/dL Calcium (8.5-10.1) mg/dL Direct Bilirubin Cancelled (0.0-0.2) mg/dL Indirect Bilirubin Cancelled (0.0-0.8) mg/dL AST (15-37) U/L ALT (12-78) U/L Alkaline Phosphatase (45-117) U/L Total Protein (6.4-8.2) g/dL Albumin (3.4-5.0) g/dL Intake and Output 09/04/18 09/04/18 09/04/18 06:59 14:59 22:59 Intake Total 400 / 400 725 / 725 362.5 / 362.5 Output Total 1775 / 1775 Balance -1375 / -1375 725 / 725 362.5 / 362.5 Intake: IV 400 / 400 725 / 725 362.5 / 362.5 KCl 40 mEq Premix Inj 40 meq In 100 / 100 100 ml @ 0 mls/hr .ROUTE .STK- MED ONE Rx#:[id number] Cordarone Inj 450 MG In D5W Inj 250 / 250 241 ML @ 1 MG/MIN 33.33 mls/hr IV.CONT TITRATE PRN Rx#: [id number] Dobutrex Inj 500 MG In D5W Inj 125 / 125 210 ML @ 2.5 MCG/KG/MIN 5.17 mls/hr IV.CONT .Q24H [facility] Rx#: [id number] Flexbumin 25% Inj 50 ML @ 50 50 / 50 50 / 50 mls/hr IV.SIG Q12H [facility] Rx#: [id number] Azithromycin Inj 500 MG In NS 250 / 250 Inj 250 ML @ 250 mls/hr IV.SIG Q24H [facility] Rx#:[id number] Azactam Inj 2 GM In NS Inj 100 100 / 100 ML @ 200 mls/hr IV.SIG Q8H [facility] Rx#:[id number] Magnesium Sulfate 1 gm/D5W 100 200 / 200 ml Premix 200 ML @ 0 mls/hr IV. SIG .STK-MED ONE Rx#:[id number] Vancomycin Inj 1,250 MG In NS 262.5 / 262.5 Inj 250 ML @ 250 mls/hr IV.SIG ONCE ONE Rx#:[id number] Rocephin Inj 2,000 MG In NS Inj 100 / 100 100 ML @ 200 mls/hr IV.SIG Q24H [facility] Rx#:[id number] Output: Urine Amount (Catheter) 1774 Indwelling Urethral Catheter 1774 Other: Date of Last Bowel Movement 09/29/18 08/29/18 08/29/18 Weight 77.6 kg - Imaging and Cardiology Imaging: Impressions Chest X-Ray 09/03/18 00:00 CONCLUSION: Slight improvement of right lung and left basilar density. Head CT 09/04/18 00:00 CONCLUSION: 1. Negative noncontrast head CT. 2. Suboptimal study secondary to motion artifact. . Liver Ultrasound 09/04/18 00:00 CONCLUSION: 1. Small nodular liver with trace ascites 2. No focal mass. Assessment and Plan - Assessment (1) Respiratory failure Code(s): J96.90 - Respiratory failure, unspecified, unspecified whether with hypoxia or hypercapnia Status: Acute (2) Cardiomyopathy Code(s): I42.9 - Cardiomyopathy, unspecified Status: Chronic (3) Atrial fibrillation Code(s): I48.91 - Unspecified atrial fibrillation Status: Chronic (4) V-tach Code(s): I47.2 - Ventricular tachycardia Status: Chronic (5) CAD (coronary artery disease) of artery bypass graft Code(s): I25.810 - Atherosclerosis of coronary artery bypass graft(s) without angina pectoris Status: Chronic (6) Nutrition, metabolism, and development symptoms Code(s): R63.8 - Other symptoms and signs concerning food and fluid intake Status: Acute (7) Hypothyroidism Code(s): E03.9 - Hypothyroidism, unspecified Status: Chronic (8) Atrial fibrillation with rapid ventricular response Code(s): I48.91 - Unspecified atrial fibrillation Status: Acute - Plan Patient back in atrial fibrillation, continue Amiodarone gtt. Patient was extubated yesterday now on 4L NC. Patient is positive for strep. lotus. in the blood, ID evaluation in progress 2D echo shows possible vegetation on the aortic valve, ID evaluation in progress. Patient has altered mental status, neurology evaluation in progress. Palliative care evaluation in progress. We will continue current cardiac treatment plan. We will continue to follow patient during hospitalization. Patient seen and evaluated by Dr. Juárez who participated in care, management and decision making. - Attending Attestation Patient seen and examined. I reviewed and agree with the evaluation and plan as presented. Continue ICU care. Overall prognosis guarded. Palliative evaluation in progress.
[2018-09-04 18:57] LABS: ABG Base Excess 1.5 mmol/L (-2-2); ABG PCO2 34 mmHg (38-42); ABG PO2 76 mmHG (61-120)
--- NOTE | 2018-09-04 19:14 | MG ---
cc: Sarah Norris MD AGE: [age] years old. EEG NUMBER: [id number]. REQUESTING: . Room 527. Awake, drowsy, asleep with photic stimulation. CT did not show anything acute, but he is admitted with shortness of breath, has a history of COPD, atrial fibrillation, diabetes, became confused, encephalopathic. MEDICATIONS: Antibiotics and others. DESCRIPTION OF RECORD: Low-amplitude EEG. Some slowing noted bilaterally, at times looks like there is 2-3 Hz background. EKG portion looks like atrial fibrillation. Ongoing continuous artifact, however. I do not appreciate any epileptiform features. Photic stimulation causes more artifact eye movement. IMPRESSION: Abnormal EEG due to moderate slowing of background, consistent with what looks like an encephalopathic process. No evidence of any epileptiform features. MD SERGEI Perez/cristina/ , 06:37 PM , 06:41 PM
[2018-09-05] MEDS: Azithromycin Inj 500 MG in Sodium Chlor 0.9% Inj 250 ML IV.SIG SCH ×2 (00:50→23:34)
[2018-09-05] MEDS: Oral Hygiene Kit OROPHARYNG SCH ×5 (00:51→23:49)
[2018-09-05] MEDS: Insulin NovoLIN Regular Correctional Sugar Inj SQ SCH ×4 (00:51→18:23)
--- NOTE | 2018-09-05 04:45 | XR ---
EXAM DATE: 09/05/2018 4:34 AM EDT AGE/SEX: 83 years / Male INDICATIONS: Shortness of breath, possible pulmonary disease. CLINICAL DATA: This is the patient's subsequent encounter. Patient reports that signs and symptoms h ave been present for 1 week and indicates a pain score of 0/10. MEDICAL/SURGICAL HISTORY: Chronic obstructive pulmonary disease. Hypertension. Diabetes. A-f ib. Hyperlipidemia. Hypothyroidism. Mitral regurgitation. Skin cancer. Pacemaker. CABG. [place] [facility] [place]. . FINDINGS: A pacing implement is present with control pack over left upper chest. Interval extubation. Right sub clavian central catheter is stable. Diffuse bilateral pleural-parenchymal opacity is stable to slight ly increased from prior. Moderate gaseous distention of bowel seen over the upper abdomen. CONCLUSION: Interval extubation. Slight interval worsening in aeration. Electronically signed by: Zach Olivier MD 09/05/2018 4:44 AM EDT
[2018-09-05 04:47] LABS: Baso % (Auto) 0.1 % (0.0-2.0); Hematocrit 33.4 % (39.0-51.0); Lymph # (Auto) 0.4 th/mm3 (1.0-4.8); Lymph % (Auto) 2.8 % (9.0-44.0); Mean Corpuscular Hemoglobin 30.6 pg (27.0-34.0); Mean Corpuscular Volume 92.7 fL (80.0-100.0); Mean Platelet Volume 8.5 fL (7.0-11.0); Mono % (Auto) 7.1 % (0.0-8.0); Neut # (Auto) 12.1 th/mm3 (1.8-7.7); Platelet Count 200 th/mm3 (150-450); Red Cell Distribution Width 15.2 % (11.6-17.2); White Blood Count 13.5 th/mm3 (4.0-11.0)
[2018-09-05 04:55] LABS: Prothrombin Time 29.8 sec (9.8-11.6)
[2018-09-05 05:09] LABS: Ovalocytes 1+
[2018-09-05 05:10] LABS: Platelet Estimate Normal (Normal); Platelet Morphology Normal (Normal)
[2018-09-05] MEDS: Chlorhexidine Gluconate 2% 1 Pack (2 Cloths) TOPICAL SCH (05:23)
[2018-09-05] MEDS: Levothyroxine 75 MCG Tablet PO SCH (05:23)
[2018-09-05 05:34] LABS: Anion Gap 11 meq/L (5-15)
[2018-09-05 05:42] LABS: Alanine Aminotransferase 1793 U/L (12-78); Albumin 2.7 g/dL (3.4-5.0); Alkaline Phosphatase 83 U/L (45-117); Aspartate Aminotransferase 300 U/L (15-37); Blood Urea Nitrogen 78 mg/dL (7-18); Calcium 8.1 mg/dL (8.5-10.1); Carbon Dioxide 29.8 meq/L (21.0-32.0); Chloride 102 meq/L (98-107); Glomerular Filtration Rate 18 mL/min (>89); Glucose,Random 142 mg/dL (74-106); Potassium 3.2 meq/L (3.5-5.1); Sodium 143 meq/L (136-145); Total Protein 5.4 g/dL (6.4-8.2)
[2018-09-05] MEDS: Hydrocortisone Sod Succinate 100 MG Vial IV.PUSH SCH ×4 (05:52→20:30)
[2018-09-05] MEDS ORDERED: Haloperidol Inj 5 MG/ML Ampul IV.PUSH PRN (06:54)
--- NOTE | 2018-09-05 07:10 | P.PNCC ---
Subjective Subjective Remarks/Hospital Course: 08/31: Patient is 83-year-old male with a history of A. fib on Xarelto, cardiomyopathy with ejection fraction 17%, moderate MR, moderate AI, hypertension, hyperlipidemia, ventricular tachycardia history with, ICD, COPD who was admitted to the [facility] service on 08/28/2018 for worsening shortness of breath. He was admitted with a diagnosis of COPD, atrial fibrillation with RVR and cardiology was consulted. I am unable to locate echo report but according to [facility] admit note Echo 10/2017, EF=17%, LVH, biatrial enlargement,, Mod MR, Mod AI, Mod TR, aortic cusp thickening. Patient has chronic A. fib for which he takes Xarelto, metoprolol, and amiodarone. This was continued and patient was also placed on Cardizem infusion for rate control. Plan was for EMILEE guided cardioversion tomorrow Patient was noted to be increasingly short of breath over the day. He received some Ativan around 10 AM today for presumed anxiety. According to bedside RN patient had labored breathing since the beginning of her shift at around 7 and even prior. Patient became increasingly lethargic with worsening hypoxia shortness of breath. Stat ABG showed 7.07/29/58 with oxygen saturation of 78 and base excess -20.5. A Halicat was called at about 8 pm and patient was moved to the [facility] [place] I immediately evaluated the patient. Patient was barely responsive tachypneic. Blood pressure was not recordable but pulse was palpable. I ordered stat transfusion of 1 L normal saline bolus, 2 Amps of bicarb to at least partially corrective acidosis prior to intubation and also started Levophed infusion peripherally. After systolic blood pressure was in 60s I proceeded with endotracheal intubation due to hypoxia and lack of airway protection. Patient was intubated and placed on mechanical ventilation. Patient remained in atrial fibrillation RVR, the shock appears to be severe cardiogenic shock worsened by severe acidosis. Levophed was rapidly increased to 40 mcg/min, additional pressors added with Tien-Synephrine and dopamine. I emergently placed a right subclavian central line and also right femoral artery line. Once arterial line is placed and flow Trac monitoring is initiated. I have given digoxin 0.5 mg IV x1 for rate control, start amiodarone bolus and infusion for rate control. Start dobutamine infusion as the patient has an EF of 17%. Duque cultures will be sent a Escamilla catheter will be inserted as the patient is almost anuric. Broad-spectrum antibiotics with Azactam Flagyl and vancomycin. Chest x-ray shows persistent left lower lobe and new right lower lobe infiltrates. This appears to be a combination of severe cardiogenic and septic shock and prognosis is guarded at this time 09/01: Remains orally intubated on mechanical ventilation. This morning at the time of my evaluation patient was easily arousable following commands. He was on phenylephrine/Levophed/dobutamine for pressor support/inotropic support as well as amiodarone gtt. Over the course of the day his phenylephrine was titrated off and Levophed was decreased to 5 mics per minute after starting vasopressin gtt 0.04 units/min. After discussion with Dr. felix proceeded with electrical cardioversion to convert him out of his A. fib. Patient was successfully cardioverted to sinus rhythm. He has been essentially anuric. 09/02: Sedated, arousable, orally intubated on mechanical ventilation. On dobutamine 2.5 mics per KG per minute and amiodarone 1 mg/min. Bicarb drip discontinued. Lactic acid improving. INR elevated this morning for which vitamin K 10 mg IV given. No evidence of active bleeding. 11/03: Arousable off sedation, orally intubated on mechanical ventilation at the time of my evaluation this morning. On dobutamine 2.5 mics per KG per minute and amiodarone gtt. Fentanyl stopped. 11/04: Disoriented and confused overnight. Precedex started earlier however became hypotensive and hence was stopped. Dobutamine stopped earlier this morning due to run of V. tach following which patient converted into A. fib. No hypotension. Continues to make urine. On nasal cannula. Electrolytes being replaced. Head CT negative for bleed. Will need anticoagulation with heparin for A. fib started once INR drops below 3. INR today 3.4. 2D echo done on 09/03 4 1 blood culture positive for strep viridans showed aortic valve vegetation suspected, EMILEE recommended. 09/05: remains extubated, but very confused. remains with severe volume overload and pulmonary edema. no overall improvements. LFTs remains elevated, Cr remains elevated. family continues to press on for aggressive care. failed swallow eval. will need enteral access for ongoing nutrition. Objective Vital Signs / I&O: Vital Signs 09/04/18 07:00 09/04/18 08:00 09/04/18 09:00 Temperature 36.8 C Pulse Rate 122 H 121 H Respiratory Rate 24 20 Blood Pressure 117/68 119/70 120/73 Pulse Oximetry 93 L 91 L 09/04/18 10:00 09/04/18 10:59 09/04/18 11:00 Temperature Pulse Rate 109 H 112 H 111 H Respiratory Rate 17 29 H 27 H Blood Pressure 92/57 L 96/62 L 85/58 L Pulse Oximetry 93 L 93 L 09/04/18 11:18 09/04/18 11:25 09/04/18 11:29 Temperature Pulse Rate 91 H 88 88 Respiratory Rate 12 11 L 12 Blood Pressure 90/52 L 83/53 L 83/51 L Pulse Oximetry 94 L 94 L 94 L 09/04/18 11:30 09/04/18 11:45 09/04/18 12:00 Temperature 36.6 C Pulse Rate 91 H 111 H 99 H Respiratory Rate 11 L 43 H 28 H Blood Pressure 81/53 L 108/71 105/78 Pulse Oximetry 94 L 88 L 95 09/04/18 12:16 09/04/18 12:30 09/04/18 12:45 Temperature Pulse Rate 94 H 93 H 105 H Respiratory Rate 11 L 14 41 H Blood Pressure 92/55 L 99/57 L 91/58 L Pulse Oximetry 94 L 94 L 94 L 09/04/18 13:00 09/04/18 13:12 09/04/18 13:15 Temperature Pulse Rate 106 H 106 H 87 Respiratory Rate 28 H 22 21 Blood Pressure 134/71 117/61 Pulse Oximetry 93 L 97 97 09/04/18 13:30 09/04/18 13:45 09/04/18 14:00 Temperature Pulse Rate 107 H 116 H 109 H Respiratory Rate 26 H 28 H 27 H Blood Pressure 105/61 103/59 L 115/75 Pulse Oximetry 94 L 93 L 09/04/18 14:15 09/04/18 14:30 09/04/18 14:45 Temperature Pulse Rate 111 H 107 H 107 H Respiratory Rate 24 31 H 26 H Blood Pressure 100/58 L 103/64 103/59 L Pulse Oximetry 93 L 93 L 11/02/18 15:00 09/04/18 15:15 09/04/18 15:30 Temperature Pulse Rate 105 H 101 H 105 H Respiratory Rate 25 H 25 H 21 Blood Pressure 109/55 L 96/58 L 92/53 L Pulse Oximetry 09/04/18 15:45 09/04/18 16:00 09/04/18 16:15 Temperature 36.3 C L Pulse Rate 96 H 103 H 106 H Respiratory Rate 11 L 24 29 H Blood Pressure 87/51 L 93/63 L 90/66 L Pulse Oximetry 09/04/18 16:30 09/04/18 16:45 09/04/18 17:00 Temperature Pulse Rate 107 H 105 H 112 H Respiratory Rate 25 H 20 22 Blood Pressure 104/65 97/53 L 114/68 Pulse Oximetry 09/04/18 17:15 09/04/18 17:30 09/04/18 17:45 Temperature Pulse Rate 110 H 109 H 110 H Respiratory Rate 20 22 20 Blood Pressure 104/59 L 100/59 L 87/60 L Pulse Oximetry 95 96 09/04/18 18:00 09/04/18 18:15 09/04/18 18:31 Temperature Pulse Rate 112 H 106 H 102 H Respiratory Rate 24 9 L 10 L Blood Pressure 103/62 93/55 L 107/51 L Pulse Oximetry 96 94 L 93 L 09/04/18 18:45 09/04/18 18:46 09/04/18 18:49 Temperature Pulse Rate 103 H 102 H 105 H Respiratory Rate 10 L 9 L 19 Blood Pressure 71/41 L 81/52 L 82/51 L Pulse Oximetry 92 L 93 L 96 09/04/18 19:00 09/04/18 19:15 09/04/18 19:30 Temperature Pulse Rate 111 H 107 H 101 H Respiratory Rate 18 9 L 9 L Blood Pressure 105/61 96/63 L 89/60 L Pulse Oximetry 96 95 95 09/04/18 19:45 09/04/18 20:00 09/04/18 20:15 Temperature 36.4 C Pulse Rate 94 H 104 H 100 H Respiratory Rate 9 L 7 L 8 L Blood Pressure 85/57 L 99/57 L 96/60 L Pulse Oximetry 95 95 96 09/04/18 20:30 09/04/18 20:45 09/04/18 20:55 Temperature Pulse Rate 101 H 107 H 106 H Respiratory Rate 8 L 14 16 Blood Pressure 99/59 L 102/62 Pulse Oximetry 96 96 98 09/04/18 21:00 09/04/18 21:15 09/04/18 21:30 Temperature Pulse Rate 112 H 120 H 118 H Respiratory Rate 16 20 21 Blood Pressure 90/68 L 99/67 L 102/69 Pulse Oximetry 99 95 95 09/04/18 21:45 09/04/18 22:00 09/04/18 22:15 Temperature Pulse Rate 112 H 113 H 108 H Respiratory Rate 17 19 9 L Blood Pressure 109/61 109/65 97/65 L Pulse Oximetry 95 96 96 09/04/18 22:30 09/04/18 22:45 09/04/18 23:00 Temperature Pulse Rate 112 H 110 H 114 H Respiratory Rate 16 18 19 Blood Pressure 104/68 106/66 108/66 Pulse Oximetry 95 95 96 09/04/18 23:15 09/04/18 23:30 09/04/18 23:45 Temperature Pulse Rate 108 H 113 H 111 H Respiratory Rate 21 19 16 Blood Pressure 116/66 115/59 L 93/60 L Pulse Oximetry 96 98 95 09/05/18 00:00 09/05/18 00:15 09/05/18 00:30 Temperature Pulse Rate 119 H 111 H 114 H Respiratory Rate 22 17 18 Blood Pressure 103/72 108/72 104/72 Pulse Oximetry 96 96 97 09/05/18 00:45 09/05/18 01:00 09/05/18 01:15 Temperature Pulse Rate 110 H 115 H 113 H Respiratory Rate 18 16 17 Blood Pressure 114/76 117/71 104/70 Pulse Oximetry 97 97 96 09/05/18 01:30 09/05/18 01:45 09/05/18 02:00 Temperature Pulse Rate 105 H 105 H 109 H Respiratory Rate 20 18 19 Blood Pressure 106/73 99/66 L 103/66 Pulse Oximetry 97 97 96 09/05/18 02:15 09/05/18 02:30 09/05/18 02:45 Temperature Pulse Rate 112 H 110 H 104 H Respiratory Rate 17 14 10 L Blood Pressure 111/64 94/63 L 103/61 Pulse Oximetry 94 L 95 96 09/05/18 03:00 09/05/18 03:15 09/05/18 03:30 Temperature Pulse Rate 101 H 112 H 111 H Respiratory Rate 10 L 19 19 Blood Pressure 102/50 L 101/63 95/68 L Pulse Oximetry 96 95 97 09/05/18 03:45 09/05/18 04:00 09/05/18 04:15 Temperature 36.6 C Pulse Rate 110 H 113 H 110 H Respiratory Rate 18 19 16 Blood Pressure 107/66 122/66 119/62 Pulse Oximetry 94 L 95 96 09/05/18 04:30 09/05/18 04:45 09/05/18 05:00 Temperature Pulse Rate 103 H 110 H 114 H Respiratory Rate 20 16 18 Blood Pressure 99/62 L 118/67 114/68 Pulse Oximetry 95 95 95 09/05/18 05:15 09/05/18 05:30 09/05/18 05:45 Temperature Pulse Rate 111 H 112 H 110 H Respiratory Rate 19 Blood Pressure 118/62 130/69 122/68 Pulse Oximetry 95 94 L 70 L 09/05/18 06:00 09/05/18 06:15 09/05/18 06:30 Temperature Pulse Rate 116 H 112 H 117 H Respiratory Rate Blood Pressure 123/63 109/56 L 111/60 Pulse Oximetry 100 90 L Intake & Output 09/04/18 09/04/18 09/05/18 06:59 18:59 06:59 Intake Total 500 / 500 1138.5 / 1138.5 500 / 500 Output Total 1775 / 1775 1125 / 1125 1500 / 1500 Balance -1275 / -1275 13.5 / 13.5 -1000 / -1000 Weight 77.6 kg 77.2 kg Intake: IV 500 / 500 1138.5 / 1138.5 500 / 500 KCl 40 mEq Premix Inj 40 meq In 100 / 100 100 ml @ 0 mls/hr .ROUTE .STK- [facility] Rx#:[id number] Cordarone Inj 450 MG In D5W Inj 250 / 250 250 / 250 241 ML @ 1 MG/MIN 33.33 mls/hr IV.CONT TITRATE PRN Rx#: [id number] Dobutrex Inj 500 MG In D5W Inj 125 / 125 210 ML @ 2.5 MCG/KG/MIN 5.17 mls/hr IV.CONT .Q24H [facility] Rx#: [id number] Flexbumin 25% Inj 50 ML @ 50 50 / 50 50 / 50 mls/hr IV.SIG Q12H [facility] Rx#: [id number] Azithromycin Inj 500 MG In NS 250 / 250 250 / 250 Inj 250 ML @ 250 mls/hr IV.SIG Q24H [facility] Rx#:[id number] Azactam Inj 2 GM In NS Inj 100 200 / 200 ML @ 200 mls/hr IV.SIG Q8H [facility] Rx#:[id number] Magnesium Sulfate 1 gm/D5W 100 200 / 200 ml Premix 200 ML @ 0 mls/hr IV. SIG .STK-[facility] ONE Rx#:[id number] Vitamin K Inj 10 MG In D5W Inj 51 / 51 50 ML @ 102 mls/hr IV.SIG ONCE ONE Rx#:[id number] Vancomycin Inj 1,250 MG In NS 262.5 / 262.5 Inj 250 ML @ 250 mls/hr IV.SIG ONCE ONE Rx#:[id number] Rocephin Inj 2,000 MG In NS Inj 100 / 100 100 ML @ 200 mls/hr IV.SIG Q24H [facility] Rx#:[id number] Oral 0 / 0 Output: Urine Amount (Catheter) 1775 / 1775 1125 / 1125 1500 / 1500 Indwelling Urethral Catheter 1775 / 1775 1125 / 1125 1500 / 1500 Other: Bladder Irrigation Fluid - Amount Drained Indwelling Urethral Catheter 120 Date of Last Bowel Movement 09/29/18 08/29/18 08/29/18 # Bowel Movements 0 Result Diagrams: 09/05/18 04:35 09/05/18 04:35 Objective Remarks: GENERAL: frail elderly male, lying in bed, no acute distress HEENT: Normocephalic. Atraumatic. Pupils equal, round, reactive, conjugate. Mucous membranes are moist NECK: Trachea is midline. +JVD. CHEST: equal chest rise. nc o2. CARDIOVASCULAR: tachycardic, irregularly irregular. afib. ABDOMEN: Soft, nontender, nondistended. No guarding. MUSCULOSKELETAL: Pulses 2+. No peripheral edema. NEUROLOGICAL: RASS +1. CAM+. confused. follows commands x 4. Assessment and Plan - Assessment and Plan Plan: NEURO: Encephalopathy: Suspect delirium, at risk for embolic events from A. fib as well as aortic valve vegetation. -CT head negative for bleed on 08/31 and 09/04. -Neurology consult requested. -We will need anticoagulation resume once INR drops below 3. Will plan on using heparin gtt. RESP: Acute hypoxemic respiratory failure- resolving Bibasilar pneumonia COPD Pulmonary Edema -Emergently intubated for severe respiratory distress hypoxia -Tolerated CPAP trial and extubated on 09/03 to nasal cannula -DuoNeb every 4 hours scheduled and as needed -Broad-spectrum antibiotics as below -CT chest suggestive of pneumonia CV: Severe cardiogenic shock- resolving. Severe metabolic acidosis- resolved Severe lactic acidosis 15.7- persistent, failure to clear Atrial fibrillation with rapid ventricular response s/p cardioversion- back in afib. History of CABG Ischemic cardiomyopathy with ejection fraction 17% Moderate MR, moderate AI -Dobutamine stopped on 09/04 following nonsustained V. tach and conversion to A. fib, off phenylephrine/Levophed. Vasopressin titrated off. - Amiodarone gtt 1mg/min s/p electrical cardioversion with 100 joules X2 on 09/01, converted to sinus rhythm, converted back to A. fib on 09/04 -Hold home medications p.o. amiodarone, p.o. metoprolol -IV digoxin 0.5 mg x1 on 08/31. -Lactic acid came back at 15.7 on 08/31, serial lactic acids not clearing: very poor prognostic indicator if lactate cannot clear. -Stress dose steroids: start weaning now that he is off vasopressors. 2D echo on 09/03 with LVEF 20%, severe mitral regurgitation, aortic regurgitation , question of vegetation on aortic valve leaflet. Dr. felix from cardiology following. GI: Acute protein calorie malnutrition- severe acute dysphagia - failed swallow eval - place DHT - start tube feeds - IV famotidine -CT abdomen pelvis with some ascites : THERESA/CKD- persistent -Monitor renal function closely. Escamilla catheter for strict intake output, hourly -increase diuresis: bumex 1mg iv q6h - add diamox 500mg iv q8h. ID: Septic shock- resolving. Probable pneumonia -Antibiotics with IV Azactam, Flagyl, azithromycin, single dose of vancomycin -Blood urine and sputum cultures Blood cultures from 08/31 1 out of 2 sets growing strep viridans. ID consult requested. Repeat blood cultures on 09/03 no growth so far. Transthoracic echo with question of aortic valve vegetation on 09/03. EMILEE recommended, however with agitation and respiratory status tenuous, risk/benefit is in favor of delaying EMILEE for now. -CT chest abdomen pelvis as above HEME: -Monitor CBC, coags -Hold Xarelto due to extremely elevated INR and renal failure -Vitamin K 10 mg IV x2 on 09/02 ENDO: Hypoglycemia most likely from sepsis Hypothyroidism Mild hyperkalemia Hypocalcemia -Electrolyte replacement as needed -Hypoglycemia protocol -Replace calcium PROPH: -Bilateral lower extremity SCDs. famotidine. Xarelto to be held. INR remains elevated. LINES: -Right subclavian central line Palliative care consulted and following to assist with deciding goals of therapy.
[2018-09-05] MEDS ORDERED: Magnesium Sulfate Inj 2 GM in Sodium Chlor 0.9% Inj 96 ML IV.SIG ONE (07:30)
[2018-09-05] MEDS: Potassium Chlor 40 mEq Premix 40 MEQ/100 ML PIGGYBACK IV.SIG SCH ×2 (08:16→12:53)
[2018-09-05] MEDS: Chlorhexidine 0.12% Oral Kit 15 ML UDC OROPHARYNG SCH ×2 (08:17→20:30)
[2018-09-05] MEDS: Famotidine PF Inj 20 MG/2 ML Vial IV.PUSH SCH ×2 (08:17→20:31)
--- NOTE | 2018-09-05 09:50 | P.PNFP ---
Subjective Interval history: Patient was seen at bedside this morning. Patient's case was discussed with interventionalist Dr. Ruiz as well as the patient's nurse. Per Dr. Ruiz patient required pressors overnight. Also overnight the patient pulled out an 18-gauge Kiser catheter and was placed in soft restraints for his own safety. This morning the patient was arousable but unable to hold a conversation and difficult to elicit responses from. He was however, able to shake his head no when asked about pain, particularly responded no to belly pain. He further history could not be obtained. Of note: Daughter is in town and son is due to arrive today. The resident medicine team will sit down with family and discuss prognosis as well as goals of treatment. <Abdiaziz Fountain O - 09/05/18 10:06> Results - Labs Result diagrams: 09/06/18 04:15 09/06/18 04:27 <Tiago Le L - 09/06/18 13:40> Abnormal lab results 09/05/18 09/06/18 09/06/18 Range/Units 23:47 04:15 04:15 WBC 14.9 H (4.0-11.0) th/mm3 RBC 3.75 L (4.50-5.90) mil/mm3 Hgb 11.5 L (13.0-17.0) gm/dL Hct 35.4 L (39.0-51.0) % PT 20.7 H (9.8-11.6) sec Sodium (136-145) meq/L Potassium (3.5-5.1) meq/L BUN (7-18) mg/dL Creatinine (0.60-1.30) mg/dL Estimated GFR (>89) mL/min POC Glucose 185 H (68-110) mg/dl Random Glucose (74-106) mg/dL Total Bilirubin (0.2-1.0) mg/dL AST (15-37) U/L ALT (12-78) U/L Ammonia (11-32) mcmol/L Total Protein (6.4-8.2) g/dL Albumin (3.4-5.0) g/dL Prealbumin (20-40) mg/dL 09/06/18 09/06/18 09/06/18 Range/Units 04:15 04:27 06:55 WBC (4.0-11.0) th/mm3 RBC (4.50-5.90) mil/mm3 Hgb (13.0-17.0) gm/dL Hct (39.0-51.0) % PT (9.8-11.6) sec Sodium 148 H (136-145) meq/L Potassium 3.0 L (3.5-5.1) meq/L BUN 86 H (7-18) mg/dL Creatinine 3.18 H (0.60-1.30) mg/dL Estimated GFR 19 L (>89) mL/min POC Glucose 171 H (68-110) mg/dl Random Glucose 158 H (74-106) mg/dL Total Bilirubin 11.6 H (0.2-1.0) mg/dL AST 171 H (15-37) U/L ALT 1245 H (12-78) U/L Ammonia Less than 10 L (11-32) mcmol/L Total Protein 5.5 L (6.4-8.2) g/dL Albumin 2.7 L (3.4-5.0) g/dL Prealbumin 7 L (20-40) mg/dL 09/06/18 Range/Units 11:37 WBC (4.0-11.0) th/mm3 RBC (4.50-5.90) mil/mm3 Hgb (13.0-17.0) gm/dL Hct (39.0-51.0) % PT (9.8-11.6) sec Sodium (136-145) meq/L Potassium (3.5-5.1) meq/L BUN (7-18) mg/dL Creatinine (0.60-1.30) mg/dL Estimated GFR (>89) mL/min POC Glucose 157 H (68-110) mg/dl Random Glucose (74-106) mg/dL Total Bilirubin (0.2-1.0) mg/dL AST (15-37) U/L ALT (12-78) U/L Ammonia (11-32) mcmol/L Total Protein (6.4-8.2) g/dL Albumin (3.4-5.0) g/dL Prealbumin (20-40) mg/dL Short CBC 09/06/18 Range/Units 04:15 WBC 14.9 H (4.0-11.0) th/mm3 Hgb 11.5 L (13.0-17.0) gm/dL Hct 35.4 L (39.0-51.0) % Plt Count 185 (150-450) th/mm3 BMP 09/06/18 04:27 Sodium 148 H Potassium 3.0 L Chloride 107 Carbon Dioxide 30.0 BUN 86 H Creatinine 3.18 H Calcium 8.5 Liver Function 09/06/18 Range/Units 04:27 Total Bilirubin 11.6 H (0.2-1.0) mg/dL AST 171 H (15-37) U/L ALT 1245 H (12-78) U/L Alkaline Phosphatase 87 (45-117) U/L Albumin 2.7 L (3.4-5.0) g/dL <YoungTiago L - 09/06/18 13:40> Abnormal lab results 09/04/18 09/04/18 09/04/18 Range/Units 11:56 15:55 15:55 WBC (4.0-11.0) th/mm3 RBC 3.18 L (4.50-5.90) mil/mm3 Hgb 9.9 L (13.0-17.0) gm/dL Hct 29.1 L (39.0-51.0) % Neut % (Auto) (16.0-70.0) % Lymph % (Auto) (9.0-44.0) % Neut # (Auto) (1.8-7.7) th/mm3 Lymph # (Auto) (1.0-4.8) th/mm3 [place] # (Auto) (0.0-0.9) th/mm3 Ovalocytes (None) PT 33.5 H (9.8-11.6) sec APTT 53.2 H (23.4-31.7) sec ABG pH (7.380-7.420) ABG pCO2 (38-42) mmHg Hemoglobin (12.0-16.0) G/DL Potassium (3.5-5.1) meq/L BUN (7-18) mg/dL Creatinine (0.60-1.30) mg/dL Estimated GFR (>89) mL/min POC Glucose 170 H (68-110) mg/dl Random Glucose (74-106) mg/dL Calcium (8.5-10.1) mg/dL Total Bilirubin (0.2-1.0) mg/dL AST (15-37) U/L ALT (12-78) U/L Ammonia (11-32) mcmol/L Total Protein (6.4-8.2) g/dL Albumin (3.4-5.0) g/dL 09/04/18 09/04/18 09/05/18 Range/Units 17:42 18:45 00:23 WBC (4.0-11.0) th/mm3 RBC (4.50-5.90) mil/mm3 Hgb (13.0-17.0) gm/dL Hct (39.0-51.0) % Neut % (Auto) (16.0-70.0) % Lymph % (Auto) (9.0-44.0) % Neut # (Auto) (1.8-7.7) th/mm3 Lymph # (Auto) (1.0-4.8) th/mm3 [place] # (Auto) (0.0-0.9) th/mm3 Ovalocytes (None) PT (9.8-11.6) sec APTT (23.4-31.7) sec ABG pH 7.48 H (7.380-7.420) ABG pCO2 34 L (38-42) mmHg Hemoglobin 9.8 L (12.0-16.0) G/DL Potassium (3.5-5.1) meq/L BUN (7-18) mg/dL Creatinine (0.60-1.30) mg/dL Estimated GFR (>89) mL/min POC Glucose 162 H 127 H (68-110) mg/dl Random Glucose (74-106) mg/dL Calcium (8.5-10.1) mg/dL Total Bilirubin (0.2-1.0) mg/dL AST (15-37) U/L ALT (12-78) U/L Ammonia (11-32) mcmol/L Total Protein (6.4-8.2) g/dL Albumin (3.4-5.0) g/dL 09/05/18 09/05/18 09/05/18 Range/Units 04:35 04:35 04:35 WBC 13.5 H D (4.0-11.0) th/mm3 RBC 3.60 L (4.50-5.90) mil/mm3 Hgb 11.0 L (13.0-17.0) gm/dL Hct 33.4 L (39.0-51.0) % Neut % (Auto) 90.0 H (16.0-70.0) % Lymph % (Auto) 2.8 L (9.0-44.0) % Neut # (Auto) 12.1 H (1.8-7.7) th/mm3 Lymph # (Auto) 0.4 L (1.0-4.8) th/mm3 [place] # (Auto) 1.0 H (0.0-0.9) th/mm3 Ovalocytes 1+ H (None) PT 29.8 H (9.8-11.6) sec APTT (23.4-31.7) sec ABG pH (7.380-7.420) ABG pCO2 (38-42) mmHg Hemoglobin (12.0-16.0) G/DL Potassium 3.2 L (3.5-5.1) meq/L BUN 78 H (7-18) mg/dL Creatinine 3.36 H (0.60-1.30) mg/dL Estimated GFR 18 L (>89) mL/min POC Glucose (68-110) mg/dl Random Glucose 142 H (74-106) mg/dL Calcium 8.1 L (8.5-10.1) mg/dL Total Bilirubin 9.4 H (0.2-1.0) mg/dL AST 300 H (15-37) U/L ALT 1793 H (12-78) U/L Ammonia (11-32) mcmol/L Total Protein 5.4 L (6.4-8.2) g/dL Albumin 2.7 L (3.4-5.0) g/dL 09/05/18 Range/Units 08:09 WBC (4.0-11.0) th/mm3 RBC (4.50-5.90) mil/mm3 Hgb (13.0-17.0) gm/dL Hct (39.0-51.0) % Neut % (Auto) (16.0-70.0) % Lymph % (Auto) (9.0-44.0) % Neut # (Auto) (1.8-7.7) th/mm3 Lymph # (Auto) (1.0-4.8) th/mm3 [place] # (Auto) (0.0-0.9) th/mm3 Ovalocytes (None) PT (9.8-11.6) sec APTT (23.4-31.7) sec ABG pH (7.380-7.420) ABG pCO2 (38-42) mmHg Hemoglobin (12.0-16.0) G/DL Potassium (3.5-5.1) meq/L BUN (7-18) mg/dL Creatinine (0.60-1.30) mg/dL Estimated GFR (>89) mL/min POC Glucose (68-110) mg/dl Random Glucose (74-106) mg/dL Calcium (8.5-10.1) mg/dL Total Bilirubin (0.2-1.0) mg/dL AST (15-37) U/L ALT (12-78) U/L Ammonia Less than 10 L (11-32) mcmol/L Total Protein (6.4-8.2) g/dL Albumin (3.4-5.0) g/dL Short CBC 09/04/18 09/05/18 Range/Units 15:55 04:35 WBC 8.8 13.5 H D (4.0-11.0) th/mm3 Hgb 9.9 L 11.0 L (13.0-17.0) gm/dL Hct 29.1 L 33.4 L (39.0-51.0) % Plt Count 169 200 (150-450) th/mm3 BMP 09/05/18 04:35 Sodium 143 Potassium 3.2 L Chloride 102 Carbon Dioxide 29.8 BUN 78 H Creatinine 3.36 H Calcium 8.1 L Liver Function 09/05/18 Range/Units 04:35 Total Bilirubin 9.4 H (0.2-1.0) mg/dL AST 300 H (15-37) U/L ALT 1793 H (12-78) U/L Alkaline Phosphatase 83 (45-117) U/L Albumin 2.7 L (3.4-5.0) g/dL <Abdiaziz Fountain - 09/05/18 09:50> - Imaging Impressions Head CT 09/04/18 00:00 CONCLUSION: 1. Negative noncontrast head CT. 2. Suboptimal study secondary to motion artifact. . Chest X-Ray 09/05/18 05:00 CONCLUSION: Interval extubation. Slight interval worsening in aeration. <FountainAbdiaziz O - 09/05/18 09:50> Physical Exam Vital signs: Vital Signs 09/05/18 15:00 09/05/18 15:01 09/05/18 15:30 Temperature Pulse Rate 121 H 115 H 114 H Respiratory Rate 20 14 23 Blood Pressure 109/88 102/71 Pulse Oximetry 89 L 09/05/18 16:00 09/05/18 18:00 09/05/18 19:00 Temperature 99 F Pulse Rate 119 H 119 H 121 H Respiratory Rate 22 Blood Pressure 104/57 L Pulse Oximetry 91 L 96 09/05/18 20:00 09/05/18 22:00 09/05/18 23:00 Temperature 98.4 F Pulse Rate 121 H 120 H 122 H Respiratory Rate 20 Blood Pressure 103/59 L Pulse Oximetry 98 09/06/18 00:00 09/06/18 01:00 EDT 09/06/18 01:00 EST Temperature 98.6 F Pulse Rate 99 H 99 H 99 H Respiratory Rate 12 Blood Pressure 96/56 L Pulse Oximetry 98 09/06/18 02:00 09/06/18 03:00 09/06/18 04:00 Temperature 98.4 F Pulse Rate 115 H 111 H 116 H Respiratory Rate 17 Blood Pressure 102/66 Pulse Oximetry 98 09/06/18 05:00 09/06/18 06:00 09/06/18 07:00 Temperature Pulse Rate 76 101 H 115 H Respiratory Rate Blood Pressure Pulse Oximetry 99 09/06/18 08:00 09/06/18 09:00 09/06/18 10:00 Temperature 97.3 F L Pulse Rate 109 H 117 H 120 H Respiratory Rate 24 Blood Pressure 109/74 Pulse Oximetry 95 99 09/06/18 11:00 09/06/18 12:00 Temperature Pulse Rate 116 H 119 H Respiratory Rate Blood Pressure Pulse Oximetry Intake & Output 09/05/18 09/06/18 09/06/18 19:59 06:59 18:59 Intake Total Output Total Balance Weight Intake: IV Cordarone Inj 450 MG In D5W Inj 241 ML @ 1 MG/MIN 33.33 mls/hr IV.CONT TITRATE PRN Rx#: [id number] Azithromycin Inj 500 MG In NS Inj 250 ML @ 250 mls/hr IV.SIG Q24H [facility] Rx#:[id number] KCl 40 mEq Premix Inj 40 meq In 100 ml @ 25 mls/hr IV.SIG Q4H [facility] Rx#:[id number] Rocephin Inj 2,000 MG In NS Inj 100 ML @ 200 mls/hr IV.SIG Q24H [facility] Rx#:[id number] Oral Output: Urine Amount (Catheter) Indwelling Urethral Catheter Other: Date of Last Bowel Movement 08/29/18 # Bowel Movements <Tiago Le L - 09/06/18 13:40> Vital Signs 09/04/18 10:00 09/04/18 10:59 09/04/18 11:00 Temperature Pulse Rate 109 H 112 H 111 H Respiratory Rate 17 29 H 27 H Blood Pressure 92/57 L 96/62 L 85/58 L Pulse Oximetry 93 L 93 L 09/04/18 11:18 09/04/18 11:25 09/04/18 11:29 Temperature Pulse Rate 91 H 88 88 Respiratory Rate 12 11 L 12 Blood Pressure 90/52 L 83/53 L 83/51 L Pulse Oximetry 94 L 94 L 94 L 09/04/18 11:30 09/04/18 11:45 09/04/18 12:00 Temperature 98 F Pulse Rate 91 H 111 H 99 H Respiratory Rate 11 L 43 H 28 H Blood Pressure 81/53 L 108/71 105/78 Pulse Oximetry 94 L 88 L 95 09/04/18 12:16 09/04/18 12:30 09/04/18 12:45 Temperature Pulse Rate 94 H 93 H 105 H Respiratory Rate 11 L 14 41 H Blood Pressure 92/55 L 99/57 L 91/58 L Pulse Oximetry 94 L 94 L 94 L 09/04/18 13:00 09/04/18 13:12 09/04/18 13:15 Temperature Pulse Rate 106 H 106 H 87 Respiratory Rate 28 H 22 21 Blood Pressure 134/71 117/61 Pulse Oximetry 93 L 97 97 09/04/18 13:30 09/04/18 13:45 09/04/18 14:00 Temperature Pulse Rate 107 H 116 H 109 H Respiratory Rate 26 H 28 H 27 H Blood Pressure 105/61 103/59 L 115/75 Pulse Oximetry 94 L 93 L 09/04/18 14:15 09/04/18 14:30 09/04/18 14:45 Temperature Pulse Rate 111 H 107 H 107 H Respiratory Rate 24 31 H 26 H Blood Pressure 100/58 L 103/64 103/59 L Pulse Oximetry 93 L 93 L 09/04/18 15:00 09/04/18 15:15 09/04/18 15:30 Temperature Pulse Rate 105 H 101 H 105 H Respiratory Rate 25 H 25 H 21 Blood Pressure 109/55 L 96/58 L 92/53 L Pulse Oximetry 09/04/18 15:45 09/04/18 16:00 09/04/18 16:15 Temperature 97.3 F L Pulse Rate 96 H 103 H 106 H Respiratory Rate 11 L 24 29 H Blood Pressure 87/51 L 93/63 L 90/66 L Pulse Oximetry 09/04/18 16:30 09/04/18 16:45 09/04/18 17:00 Temperature Pulse Rate 107 H 105 H 112 H Respiratory Rate 25 H 20 22 Blood Pressure 104/65 97/53 L 114/68 Pulse Oximetry 09/04/18 17:15 09/04/18 17:30 09/04/18 17:45 Temperature Pulse Rate 110 H 109 H 110 H Respiratory Rate 20 22 20 Blood Pressure 104/59 L 100/59 L 87/60 L Pulse Oximetry 95 96 09/04/18 18:00 09/04/18 18:15 09/04/18 18:31 Temperature Pulse Rate 112 H 106 H 102 H Respiratory Rate 24 9 L 10 L Blood Pressure 103/62 93/55 L 107/51 L Pulse Oximetry 96 94 L 93 L 09/04/18 18:45 09/04/18 18:46 09/04/18 18:49 Temperature Pulse Rate 103 H 102 H 105 H Respiratory Rate 10 L 9 L 19 Blood Pressure 71/41 L 81/52 L 82/51 L Pulse Oximetry 92 L 93 L 96 09/04/18 19:00 09/04/18 19:15 09/04/18 19:30 Temperature Pulse Rate 111 H 107 H 101 H Respiratory Rate 18 9 L 9 L Blood Pressure 105/61 96/63 L 89/60 L Pulse Oximetry 96 95 95 09/04/18 19:45 09/04/18 20:00 09/04/18 20:15 Temperature 97.6 F Pulse Rate 94 H 104 H 100 H Respiratory Rate 9 L 7 L 8 L Blood Pressure 85/57 L 99/57 L 96/60 L Pulse Oximetry 95 95 96 09/04/18 20:30 09/04/18 20:45 09/04/18 20:55 Temperature Pulse Rate 101 H 107 H 106 H Respiratory Rate 8 L 14 16 Blood Pressure 99/59 L 102/62 Pulse Oximetry 96 96 98 09/04/18 21:00 09/04/18 21:15 09/04/18 21:30 Temperature Pulse Rate 112 H 120 H 118 H Respiratory Rate 16 20 21 Blood Pressure 90/68 L 99/67 L 102/69 Pulse Oximetry 99 95 95 09/04/18 21:45 09/04/18 22:00 09/04/18 22:15 Temperature Pulse Rate 112 H 113 H 108 H Respiratory Rate 17 19 9 L Blood Pressure 109/61 109/65 97/65 L Pulse Oximetry 95 96 96 09/04/18 22:30 09/04/18 22:45 09/04/18 23:00 Temperature Pulse Rate 112 H 110 H 114 H Respiratory Rate 16 18 19 Blood Pressure 104/68 106/66 108/66 Pulse Oximetry 95 95 96 09/04/18 23:15 09/04/18 23:30 09/04/18 23:45 Temperature Pulse Rate 108 H 113 H 111 H Respiratory Rate 21 19 16 Blood Pressure 116/66 115/59 L 93/60 L Pulse Oximetry 96 98 95 09/05/18 00:00 09/05/18 00:15 09/05/18 00:30 Temperature Pulse Rate 119 H 111 H 114 H Respiratory Rate 22 17 18 Blood Pressure 103/72 108/72 104/72 Pulse Oximetry 96 96 97 09/05/18 00:45 09/05/18 01:00 09/05/18 01:15 Temperature Pulse Rate 110 H 115 H 113 H Respiratory Rate 18 16 17 Blood Pressure 114/76 117/71 104/70 Pulse Oximetry 97 97 96 09/05/18 01:30 09/05/18 01:45 09/05/18 02:00 Temperature Pulse Rate 105 H 105 H 109 H Respiratory Rate 20 18 19 Blood Pressure 106/73 99/66 L 103/66 Pulse Oximetry 97 97 96 09/05/18 02:15 09/05/18 02:30 09/05/18 02:45 Temperature Pulse Rate 112 H 110 H 104 H Respiratory Rate 17 14 10 L Blood Pressure 111/64 94/63 L 103/61 Pulse Oximetry 94 L 95 96 09/05/18 03:00 09/05/18 03:15 09/05/18 03:30 Temperature Pulse Rate 101 H 112 H 111 H Respiratory Rate 10 L 19 19 Blood Pressure 102/50 L 101/63 95/68 L Pulse Oximetry 96 95 97 09/05/18 03:45 09/05/18 04:00 09/05/18 04:15 Temperature 97.8 F Pulse Rate 110 H 113 H 110 H Respiratory Rate 18 19 16 Blood Pressure 107/66 122/66 119/62 Pulse Oximetry 94 L 95 96 09/05/18 04:30 09/05/18 04:45 09/05/18 05:00 Temperature Pulse Rate 103 H 110 H 114 H Respiratory Rate 20 16 18 Blood Pressure 99/62 L 118/67 114/68 Pulse Oximetry 95 95 95 09/05/18 05:15 09/05/18 05:30 09/05/18 05:45 Temperature Pulse Rate 111 H 112 H 110 H Respiratory Rate 19 Blood Pressure 118/62 130/69 122/68 Pulse Oximetry 95 94 L 70 L 09/05/18 06:00 09/05/18 06:15 09/05/18 06:30 Temperature Pulse Rate 116 H 112 H 117 H Respiratory Rate Blood Pressure 123/63 109/56 L 111/60 Pulse Oximetry 100 90 L 09/05/18 08:00 Temperature Pulse Rate Respiratory Rate Blood Pressure Pulse Oximetry 92 L Intake & Output 09/04/18 09/05/18 09/05/18 18:59 06:59 18:59 Intake Total 1138.5 / 1138.5 500 / 500 Output Total 1125 / 1125 1500 / 1500 Balance 13.5 / 13.5 -1000 / -1000 Weight 77.2 kg Intake: IV 1138.5 / 1138.5 500 / 500 KCl 40 mEq Premix Inj 40 meq In 100 / 100 100 ml @ 0 mls/hr .ROUTE .[facility] Rx#:[id number] Cordarone Inj 450 MG In D5W Inj 250 / 250 250 / 250 241 ML @ 1 MG/MIN 33.33 mls/hr IV.CONT TITRATE PRN Rx#: [id number] Dobutrex Inj 500 MG In D5W Inj 125 / 125 210 ML @ 2.5 MCG/KG/MIN 5.17 mls/hr IV.CONT .Q24H [facility] Rx#: [id number] Flexbumin 25% Inj 50 ML @ 50 50 / 50 mls/hr IV.SIG Q12H [facility] Rx#: [id number] Azithromycin Inj 500 MG In NS 250 / 250 Inj 250 ML @ 250 mls/hr IV.SIG Q24H [facility] Rx#:[id number] Magnesium Sulfate 1 gm/D5W 100 200 / 200 ml Premix 200 ML @ 0 mls/hr IV. SIG [facility] Rx#:[id number] Vitamin K Inj 10 MG In D5W Inj 51 / 51 50 ML @ 102 mls/hr IV.SIG [facility] Rx#:[id number] Vancomycin Inj 1,250 MG In NS 262.5 / 262.5 Inj 250 ML @ 250 mls/hr IV.SIG ON[facility] Rx#:[id number] Rocephin Inj 2,000 MG In NS Inj 100 / 100 100 ML @ 200 mls/hr IV.SIG Q24H [facility] Rx#:[id number] Oral 0 / 0 Output: Urine Amount (Catheter) 1125 / 1125 1500 / 1500 Indwelling Urethral Catheter 1125 / 1125 1500 / 1500 Other: Bladder Irrigation Fluid - Amount Drained Indwelling Urethral Catheter 120 Date of Last Bowel Movement 08/29/18 08/29/18 # Bowel Movements 0 <Abdiaziz Fountain O - 09/05/18 09:50> Narrative: General: Elderly gentleman lying comfortably in bed on nasal cannula. Patient was difficult to arouse elicit answers from. Patient had dry crusted blood around inner lips and oral mucosa. Patient currently in soft restraints. Cardio: Irregularly irregular. 2+ pedal pulses. Patient has subclavian central line in place. Pulmonary: Crackles appreciated in all lung mcdowell bilaterally. Patient has poor air movement. GI: Distended, but did elicit pain to palpation. Patient had normal active bowel sounds. Extremities: No edema noted in lower extremities. Patient's arms are significantly edematous bilaterally, from elbow to fingertips. Neuro: Patient was minimally awake and alert but not verbally responsive. Patient did not move his arms or hands when asked to do so. Patient was able to move his toes but would not obey commands to test emission specialist strength. At no time did the patient move his hands or arms at any point. No facial asymmetry. : kiser catheter in place, draining dark cola colored urine <Abdiaziz Fountain Gelacio - 09/05/18 10:06> - Urinary Catheter Management Indwelling Urethral Catheter Cath placed during this visit: no <Tiago Le 09/06/18 13:39> yes, but has since been removed by the nurse <Abdiaziz Fountain Gelacio - 09/05/18 10:06> Reason for continuing: Decision to DC catheter <Abdiaziz Fountain Gelacio Ruiz 09/05/18 09:50 > Insertion date: 08/31/18 <Abdiaziz Fountain 09/05/18 09:50> Insertion time: 22:00 <FountainAbdiaziz Brizuela 09/05/18 09:50> Removal date: 09/04/18 <Abdiaziz Fountain 09/05/18 09:50> Removal time: 15:40 <FountainAbdiaziz Gelacio 09/05/18 09:50> Assessment and Plan - Assessment (1) Encephalopathy acute Code(s): G93.40 - Encephalopathy, unspecified Status: Acute (2) Streptococcus viridans infection Code(s): A49.1 - Streptococcal infection, unspecified site Status: Acute (3) Cardiogenic shock Code(s): R57.0 - Cardiogenic shock Status: Acute (4) Respiratory failure Code(s): J96.90 - Respiratory failure, unspecified, unspecified whether with hypoxia or hypercapnia Status: Acute (5) Shock liver Code(s): K72.00 - Acute and subacute hepatic failure without coma Status: Acute (6) Bilateral pneumonia Code(s): J18.9 - Pneumonia, unspecified organism Status: Acute (7) Renal failure, acute on chronic Code(s): N17.9 - Acute kidney failure, unspecified; N18.9 - Chronic kidney disease, unspecified Status: Acute (8) Atrial fibrillation with rapid ventricular response Code(s): I48.91 - Unspecified atrial fibrillation Status: Acute (9) Cardiomyopathy Code(s): I42.9 - Cardiomyopathy, unspecified Status: Chronic (10) V-tach Code(s): I47.2 - Ventricular tachycardia Status: Chronic (11) Hyperlipidemia Code(s): E78.5 - Hyperlipidemia, unspecified Status: Acute (12) Hypothyroidism Code(s): E03.9 - Hypothyroidism, unspecified Status: Chronic <Tiago Le - 09/06/18 13:40> (1) Encephalopathy acute Code(s): G93.40 - Encephalopathy, unspecified Status: Acute Plan: Patient continues to be confused and disoriented and minimally arousable. -CT of the head showed no acute bleed -Patient now on ceftriaxone and azithromycin -EEG was consistent with encephalopathic process -Follow-up neurology consult (2) Streptococcus viridans infection Code(s): A49.1 - Streptococcal infection, unspecified site Status: Acute Plan: Blood cultures 08/31 1/2 positive for strep viridans. Repeat cultures no growth after 2 days. White count up to 13.5 today. Patient continues to be afebrile. Repeat blood cultures no growth after 2 days Per infectious disease stop Vanco and Azactam Continue Rocephin Trend white count (3) Cardiogenic shock Code(s): R57.0 - Cardiogenic shock Status: Acute Plan: 83-year-old male with a history of A. fib , hypertension, hyperlipidemia, ICD presented to the ED with worsening shortness of breath. Originally admitted for A.fib with RVR. Patient transferred to the ICU on 08/31 for respiratory failure in the setting of cardiogenic shock. Currently intubated, mechanically ventilated. Machine Bender managing. -s/p electrical cardioversion 09/01, patient successfully converted to sinus rhythm. Patient had 7 beat run of V. tach that may have been the reason that the patient converted back into atrial fibrillation. Patient seems fluid overloaded today had a crackles on auscultation. -Echo on 09/03 showed an EF of 20%, severe mitral regurgitation, aortic regurgitation, question of vegetation on aortic valve leaflet. -Phenylephrine titrated off and levophed discontinued -Dobutamine discontinued, patient currently not on any inotrope or pressors -Per toe laster hold home PO amiodarone and metoprolol -Continue IV Amiodarone 1mg/min -Follow up with cardiology recommendations (4) Respiratory failure Code(s): J96.90 - Respiratory failure, unspecified, unspecified whether with hypoxia or hypercapnia Status: Acute Plan: Patient currently extubated and satting 94% on 4 L nasal cannula. -Lactic acid trending down -Last ABG on 09/02 demonstrated pH of 7.47, HCO3 of 23, CO2 32 -DuoNeb every 4 hours -Chest CT suggestive of pneumonia -Repeat chest x-ray on 09/05 showed worsening aeration -Continue ceftriaxone and azithromycin (5) Shock liver Code(s): K72.00 - Acute and subacute hepatic failure without coma Status: Acute Plan: Liver enzymes trending down. Continue to monitor. s/p Vit. K x2 INR improved to 3, will need anticoagulation once patient drops below 3 (6) Bilateral pneumonia Code(s): J18.9 - Pneumonia, unspecified organism Status: Acute Plan: CT of the chest demonstrated bilateral pneumonia particularly in the right upper lobe. Patient began on broad-spectrum antibiotics. Sputum Gram stain showed multiple white blood cells but no organisms. Patient status post 1 dose of vancomycin. Patient had crackles on lung auscultation this morning and may be fluid overloaded. -Strep pneumoniae antigen negative -Legionella antigen negative -Continue oxygenation via nasal cannula -DuoNeb every 4 hours scheduled and as needed -Continue azithromycin (7) Renal failure, acute on chronic Code(s): N17.9 - Acute kidney failure, unspecified; N18.9 - Chronic kidney disease, unspecified Status: Acute Plan: Nephrology on board. Likely due to ATN due to hypoperfusion, possible sepsis. Patient pulled out 18-gauge Kiser catheter overnight and likely caused urethral trauma. Patient had Coca[employer] colored urine in Kiser bag this morning. Discontinued Bicarb drip -Continue Bumex 1mg IV q12h -Continue acetazolamide (8) Atrial fibrillation with rapid ventricular response Code(s): I48.91 - Unspecified atrial fibrillation Status: Acute Plan: Cardiology following s/p Cardioversion, patient now in atrial fibrillation again. INR 3. Continue amiodarone (9) Cardiomyopathy Code(s): I42.9 - Cardiomyopathy, unspecified Status: Chronic Plan: Echo 2D echo on 09/03 with LVEF 20%, severe mitral regurgitation, aortic regurgitation, question of vegetation on aortic valve leaflet. * Please see plan above for cardiogenic shock (10) V-tach Code(s): I47.2 - Ventricular tachycardia Status: Chronic Plan: s/p ICD changed on 07/21/18. Patient had 7 beat run of V. tach on the morning of 09/04. Patient currently in atrial fibrillation (11) Hyperlipidemia Code(s): E78.5 - Hyperlipidemia, unspecified Status: Acute Plan: Hold fenofibrate given acute LFT elevation (12) Hypothyroidism Code(s): E03.9 - Hypothyroidism, unspecified Status: Chronic Plan: TSH within normal limits, free T4 just above the upper limit of normal. -Continue levothyroxine 75mcg daily <Abdiaziz Fountain O - 09/05/18 09:50> - Attending Attestation The exam, history, and the medical decision-making described in the above note were completed with the assistance of the resident physician. I reviewed and agree with the findings presented. I attest that I had a [id number] encounter with the patient on the same day alongside the resident. <Tiago Le - 09/06/18 13:39> <Abdiaziz Fountain - Last Filed: 09/05/18 09:50> (7) Renal failure, acute on chronic Qualifiers: Acute renal failure type: unspecified Chronic kidney disease stage: unspecified stage Qualified Code(s): N17.9 - Acute kidney failure, unspecified ; N18.9 - Chronic kidney disease, unspecified <Tiago Le - Last Filed: 09/06/18 13:40> (7) Renal failure, acute on chronic Qualifiers: Acute renal failure type: unspecified Chronic kidney disease stage: unspecified stage Qualified Code(s): N17.9 - Acute kidney failure, unspecified ; N18.9 - Chronic kidney disease, unspecified <Abdiaziz Fountain O - Last Filed: 09/05/18 09:50> (7) Renal failure, acute on chronic Qualifiers: Acute renal failure type: unspecified Chronic kidney disease stage: unspecified stage Qualified Code(s): N17.9 - Acute kidney failure, unspecified ; N18.9 - Chronic kidney disease, unspecified <Tiago Le L - Last Filed: 09/06/18 13:40> (7) Renal failure, acute on chronic Qualifiers: Acute renal failure type: unspecified Chronic kidney disease stage: unspecified stage Qualified Code(s): N17.9 - Acute kidney failure, unspecified ; N18.9 - Chronic kidney disease, unspecified
--- NOTE | 2018-09-05 12:51 | XR ---
EXAM DATE: 09/05/2018 12:47 PM EDT AGE/SEX: 83 years / Male INDICATIONS: Dobhoff placement. CLINICAL DATA: This is the patient's initial encounter. Patient reports that signs and symptoms have been present for 1 day and indicates a pain score of Nonresponsive. MEDICAL/SURGICAL HISTORY: . Chronic obstructive pulmonary disease. Hypertension. Diabetes. A-fi b. Hyperlipidemia. Hypothyroidism. Mitral regurgitation. Skin cancer. Pacemaker. CABG. . COMPARISON: No prior exams available for comparison. FINDINGS: Single AP supine view of the abdomen. AICD in place. Feeding tube is in place with the tip in the di stal stomach. Distended air-filled colon. CONCLUSION: Feeding tube is in place with the tip in the distal stomach. Electronically signed by: Immanuel Preston MD 09/05/2018 12:49 PM EDT
--- NOTE | 2018-09-05 13:01 | P.CONURO ---
History of Present Illness Service: Consult date: 09/05/18 Requesting Physician: Demetrius Schilling Reason for Consult: Urethral bleeding after failed attempt to perform straight catheterization Primary Care Provider: Davy Walters MD Chief Complaint: atrial fib with RVR History of Present Illness: 83-year-old gentleman admitted to the intensive care unit with shortness of breath. Patient had an indwelling Escamilla catheter which stopped draining and would not irrigate well. The Escamilla catheter was removed and an attempt was made to perform straight catheterization without success. Subsequent to this attempt urethral bleeding was noted. I was contacted by the ICU nurse soon thereafter and advised placement of a 18 Stateless coud Escamilla catheter. This was able to be accomplished successfully. Presently the Escamilla catheter continues to drain well with ongoing light hematuria. Review of Systems All other systems reviewed negative except as stated in HPI PMFSH - History History Provided By: Patient - Medical History Medical History: Medical History (Last Reviewed 09/05/18 @ 12:21 by Shira Sadler) Afib COPD (chronic obstructive pulmonary disease) Diabetes Glaucoma HLD (hyperlipidemia) HTN (hypertension) Hypothyroid ICD (implantable cardioverter-defibrillator) in place Mitral regurgitation Skin cancer Ventricular tachycardia - Surgical History Surgical History: Surgical History (Last Reviewed 09/05/18 @ 12:21 by Shira Sadler) H/O sinus surgery Hx of CABG - Family History Family History: Family History (Last Updated 08/28/18 @ 22:09 by Ashanti Bloom MD, R2) Father Colon cancer - Tobacco History Second Hand Smoke Exposure: No Smoking Status: Former smoker - Alcohol History How Often Do You Have a Drink Containing Alcohol: Never - Substance Use History Substance History: No History of Abuse - Travel History History of Recent Travel: No Recent Travel in the [place] Within the Last 8 Weeks: No Recent Travel Out of the Country Within the Last 8 Weeks: No - Immunization History Tetanus Immunization: Unsure Hx Influenza Vaccine This Season: No Medications and Allergies Active Medications: Active Medications Acetazolamide Sodium (Diamox Inj) 500 mg IV.PUSH Q8H [facility] Last Admin: 09/05/18 08:16 Dose: 500 mg Albuterol (Duoneb Neb (Prn)) 1 ampul NEB Q2HR NEB PRN PRN Reason: SHORTNESS OF BREATH Amiodarone HCl (Cordarone) 200 mg PO BID [facility] Last Admin: 09/01/18 00:32 Dose: Not Given Bisacodyl (Dulcolax Supp) 10 mg RECTAL DAILY PRN PRN Reason: CONSTIPATION Bumetanide (Bumex Inj) 1 mg IV.PUSH Q6H [facility] Last Admin: 09/05/18 08:16 Dose: 1 mg Chlorhexidine Gluconate (Peridex 0.12% Oral Kit) 15 ml OROPHARYNG BID@0800, 2000 [facility] Last Admin: 09/05/18 08:17 Dose: Not Given Chlorhexidine Gluconate (Chlorhexidine 2% Cloth) 3 pack TOPICAL DAILY@0400 ANNITA Stop: 09/06/18 03:59 Last Admin: 09/05/18 05:23 Dose: 3 pack Chlorhexidine Gluconate (Chlorhexidine 2% Cloth) 3 pack TOPICAL DAILY@0400 PRN PRN Reason: Extra cloth needed Stop: 09/06/18 03:59 Dextrose (D50w Vial) 50 ml IV.PUSH UNSCH PRN PRN Reason: PER HYPOGLYCEMIA PROTOCOL Famotidine (Pepcid Pf Inj) 10 mg IV.PUSH Q12HR [facility] Last Admin: 09/05/18 08:17 Dose: 10 mg Glucagon (Glucagon Inj) 1 mg OTHER PRN PRN PRN Reason: for Hypoglycemia Protocol Haloperidol Lactate (Haldol Inj) 5 mg IV.PUSH Q1H PRN PRN Reason: AGITATION Hydrocortisone Sodium Succinate (Solucortef Inj) 50 mg IV.PUSH Q6H [facility]; Taper Stop: 09/10/18 07:59 Last Admin: 09/05/18 09:52 Dose: 50 mg Amiodarone HCl 450 mg/ (Dextrose) 250 mls @ 33.33 mls/hr IV.CONT TITRATE PRN; Protocol PRN Reason: Per Protocol Last Admin: 09/05/18 12:53 Dose: 0.5 mg/min, 16.66 mls/hr Norepinephrine Bitartrate 4 mg (/ Sodium Chloride) 250 mls @ 7.5 mls/hr IV.SIG TITRATE PRN; Protocol PRN Reason: Per Protocol Last Titration: 09/03/18 07:00 Dose: Infused Azithromycin 500 mg/ Sodium (Chloride) 250 mls @ 250 mls/hr IV.SIG Q24H [facility] Last Infusion: 09/05/18 02:13 Dose: Infused Ceftriaxone Sodium 2,000 mg/ (Sodium Chloride) 100 mls @ 200 mls/hr IV.SIG Q24H [facility] Last Infusion: 09/04/18 16:48 Dose: Infused Potassium Chloride (Kcl 40 Meq Premix Inj) 40 meq in 100 mls @ 25 mls/hr IV.SIG Q4H [facility] Stop: 09/05/18 14:59 Last Admin: 09/05/18 12:53 Dose: 25 mls/hr Insulin Human Regular (Novolin R Correctional Sugar Inj) 0 units SQ Q6HR [facility]; Protocol Last Admin: 09/05/18 06:01 Dose: Not Given Latanoprost (Xalatan 0.005% Opth Drops) 1 drop EACH EYE QPM [facility] Last Admin: 09/04/18 17:42 Dose: 1 drop Levothyroxine Sodium (Synthroid) 75 mcg PO DAILY@0600 [facility] Last Admin: 09/05/18 05:23 Dose: Not Given Metoprolol Tartrate (Lopressor) 25 mg PO BID [facility] Last Admin: 09/01/18 00:33 Dose: Not Given Miscellaneous Medication () 1 each OROPHARYNG 0000,0400,1200,1600 [facility] Last Admin: 09/05/18 12:53 Dose: 1 each Morphine Sulfate (Morphine Inj) 4 mg IV.PUSH Q2H PRN PRN Reason: Pain6-10 Last Admin: 09/01/18 08:59 Dose: 4 mg Rivaroxaban (Xarelto) 15 mg PO QPM [facility] Last Admin: 08/31/18 17:44 Dose: 15 mg Sodium Chloride (Ns Flush) 2 ml IV.FLUSH BID [facility] Last Admin: 09/05/18 08:17 Dose: 2 ml Sodium Chloride (Ns Flush) 2 ml IV.FLUSH PRN PRN PRN Reason: FLUSH AFTER USING IV ACCESS Terbutaline Sulfate (Brethine Inj) 1 mg SQ UNSCH PRN PRN Reason: For Extravasation Allergies Allergy/AdvReac Type Severity Reaction Status Date / Time prednisone Allergy Severe Weight loss Verified 08/28/18 14:33 penicillin G Allergy Intermediate Hives Verified 08/28/18 14:33 Sulfa (Sulfonamide Allergy Intermediate Hives Verified 08/28/18 14:33 Antibiotics) Home Medications Medication Instructions Recorded Confirmed Type fenofibrate 160 mg PO DAILY 07/22/18 08/28/18 History latanoprost 1 drp OPHTHALMIC (EYE) QPM 07/22/18 08/28/18 History levothyroxine [Synthroid] 75 mcg PO DAILY 07/22/18 08/28/18 History pitavastatin calcium [Livalo] 2 mg PO 3XW 07/22/18 08/28/18 History metoprolol tartrate 25 mg PO BID 08/28/18 08/28/18 History rivaroxaban [Xarelto] 15 mg PO QPM 08/28/18 08/28/18 History torsemide 20 mg PO EVERY OTHER DAY 08/28/18 08/28/18 History amiodarone 200 mg PO 08/29/18 History Physical Exam Vital Signs - 24 hr 09/04/18 13:12 09/04/18 13:15 09/04/18 13:30 Temperature Pulse Rate 106 H 87 107 H Respiratory Rate 22 21 26 H Blood Pressure 117/61 105/61 Pulse Oximetry 97 97 94 L 09/04/18 13:45 09/04/18 14:00 09/04/18 14:15 Temperature Pulse Rate 116 H 109 H 111 H Respiratory Rate 28 H 27 H 24 Blood Pressure 103/59 L 115/75 100/58 L Pulse Oximetry 93 L 93 L 09/04/18 14:30 09/04/18 14:45 09/04/18 15:00 Temperature Pulse Rate 107 H 107 H 105 H Respiratory Rate 31 H 26 H 25 H Blood Pressure 103/64 103/59 L 109/55 L Pulse Oximetry 93 L 09/04/18 15:15 09/04/18 15:30 09/04/18 15:45 Temperature Pulse Rate 101 H 105 H 96 H Respiratory Rate 25 H 21 11 L Blood Pressure 96/58 L 92/53 L 87/51 L Pulse Oximetry 09/04/18 16:00 09/04/18 16:15 09/04/18 16:30 Temperature 97.3 F L Pulse Rate 103 H 106 H 107 H Respiratory Rate 24 29 H 25 H Blood Pressure 93/63 L 90/66 L 104/65 Pulse Oximetry 09/04/18 16:45 09/04/18 17:00 09/04/18 17:15 Temperature Pulse Rate 105 H 112 H 110 H Respiratory Rate 20 22 20 Blood Pressure 97/53 L 114/68 104/59 L Pulse Oximetry 09/04/18 17:30 09/04/18 17:45 09/04/18 18:00 Temperature Pulse Rate 109 H 110 H 112 H Respiratory Rate 22 20 24 Blood Pressure 100/59 L 87/60 L 103/62 Pulse Oximetry 95 96 96 09/04/18 18:15 09/04/18 18:31 09/04/18 18:45 Temperature Pulse Rate 106 H 102 H 103 H Respiratory Rate 9 L 10 L 10 L Blood Pressure 93/55 L 107/51 L 71/41 L Pulse Oximetry 94 L 93 L 92 L 09/04/18 18:46 09/04/18 18:49 09/04/18 19:00 Temperature Pulse Rate 102 H 105 H 111 H Respiratory Rate 9 L 19 18 Blood Pressure 81/52 L 82/51 L 105/61 Pulse Oximetry 93 L 96 96 09/04/18 19:15 09/04/18 19:30 09/04/18 19:45 Temperature Pulse Rate 107 H 101 H 94 H Respiratory Rate 9 L 9 L 9 L Blood Pressure 96/63 L 89/60 L 85/57 L Pulse Oximetry 95 95 95 09/04/18 20:00 09/04/18 20:15 09/04/18 20:30 Temperature 97.6 F Pulse Rate 104 H 100 H 101 H Respiratory Rate 7 L 8 L 8 L Blood Pressure 99/57 L 96/60 L 99/59 L Pulse Oximetry 95 96 96 09/04/18 20:45 09/04/18 20:55 09/04/18 21:00 Temperature Pulse Rate 107 H 106 H 112 H Respiratory Rate 14 16 16 Blood Pressure 102/62 90/68 L Pulse Oximetry 96 98 99 09/04/18 21:15 09/04/18 21:30 09/04/18 21:45 Temperature Pulse Rate 120 H 118 H 112 H Respiratory Rate 20 21 17 Blood Pressure 99/67 L 102/69 109/61 Pulse Oximetry 95 95 95 09/04/18 22:00 09/04/18 22:15 09/04/18 22:30 Temperature Pulse Rate 113 H 108 H 112 H Respiratory Rate 19 9 L 16 Blood Pressure 109/65 97/65 L 104/68 Pulse Oximetry 96 96 95 09/04/18 22:45 09/04/18 23:00 09/04/18 23:15 Temperature Pulse Rate 110 H 114 H 108 H Respiratory Rate 18 19 21 Blood Pressure 106/66 108/66 116/66 Pulse Oximetry 95 96 96 09/04/18 23:30 09/04/18 23:45 09/05/18 00:00 Temperature Pulse Rate 113 H 111 H 119 H Respiratory Rate 19 16 22 Blood Pressure 115/59 L 93/60 L 103/72 Pulse Oximetry 98 95 96 09/05/18 00:15 09/05/18 00:30 09/05/18 00:45 Temperature Pulse Rate 111 H 114 H 110 H Respiratory Rate 17 18 18 Blood Pressure 108/72 104/72 114/76 Pulse Oximetry 96 97 97 09/05/18 01:00 09/05/18 01:15 09/05/18 01:30 Temperature Pulse Rate 115 H 113 H 105 H Respiratory Rate 16 17 20 Blood Pressure 117/71 104/70 106/73 Pulse Oximetry 97 96 97 09/05/18 01:45 09/05/18 02:00 09/05/18 02:15 Temperature Pulse Rate 105 H 109 H 112 H Respiratory Rate 18 19 17 Blood Pressure 99/66 L 103/66 111/64 Pulse Oximetry 97 96 94 L 09/05/18 02:30 09/05/18 02:45 09/05/18 03:00 Temperature Pulse Rate 110 H 104 H 101 H Respiratory Rate 14 10 L 10 L Blood Pressure 94/63 L 103/61 102/50 L Pulse Oximetry 95 96 96 09/05/18 03:15 09/05/18 03:30 09/05/18 03:45 Temperature Pulse Rate 112 H 111 H 110 H Respiratory Rate 19 19 18 Blood Pressure 101/63 95/68 L 107/66 Pulse Oximetry 95 97 94 L 09/05/18 04:00 09/05/18 04:15 09/05/18 04:30 Temperature 97.8 F Pulse Rate 113 H 110 H 103 H Respiratory Rate 19 16 20 Blood Pressure 122/66 119/62 99/62 L Pulse Oximetry 95 96 95 09/05/18 04:45 09/05/18 05:00 09/05/18 05:15 Temperature Pulse Rate 110 H 114 H 111 H Respiratory Rate 16 18 19 Blood Pressure 118/67 114/68 118/62 Pulse Oximetry 95 95 95 09/05/18 05:30 09/05/18 05:45 09/05/18 06:00 Temperature Pulse Rate 112 H 110 H 116 H Respiratory Rate Blood Pressure 130/69 122/68 123/63 Pulse Oximetry 94 L 70 L 09/05/18 06:15 09/05/18 06:30 09/05/18 07:00 Temperature Pulse Rate 112 H 117 H 120 H Respiratory Rate Blood Pressure 109/56 L 111/60 Pulse Oximetry 100 90 L 09/05/18 08:00 09/05/18 08:02 09/05/18 08:30 Temperature 98.3 F Pulse Rate 115 H 113 H 116 H Respiratory Rate 20 18 20 Blood Pressure 118/65 118/65 102/61 Pulse Oximetry 96 96 91 L 09/05/18 09:00 09/05/18 10:00 09/05/18 11:00 Temperature Pulse Rate 119 H 119 H 111 H Respiratory Rate Blood Pressure Pulse Oximetry Physical Exam: GENERAL: Lying quietly in bed and appears stated age. SKIN: No rashes, ecchymoses or lesions. Cool and dry. HEAD: Atraumatic. Normocephalic. EYES: Pupils equal round and reactive. GASTROINTESTINAL: Abdomen soft, non-tender, nondistended. GENITOURINARY: Bladder not distended, Escamilla catheter draining light to medium red colored urine without clots. MUSCULOSKELETAL: Extremities adequately perfused Laboratory Results - last 24 hr 09/04/18 09/04/18 09/04/18 15:55 15:55 17:42 WBC 8.8 RBC 3.18 L Hgb 9.9 L Hct 29.1 L MCV 91.4 MCH 31.1 MCHC 34.0 RDW 15.0 Plt Count 169 MPV 8.7 Prelim Diff (Auto) Neut % (Auto) Lymph % (Auto) [place] % (Auto) Eos % (Auto) Baso % (Auto) Neut # (Auto) Lymph # (Auto) [place] # (Auto) Eos # (Auto) Baso # (Auto) WBC Differential Diff Scan Differential Comment Platelet Estimate Platelet Morphology Ovalocytes PT 33.5 H INR 3.3 APTT 53.2 H Puncture Site Patient Temperature O2 Saturation ABG pH ABG pCO2 ABG pO2 ABG HCO3 ABG O2 Content ABG Base Excess ABG Methemoglobin Parveen Test Hemoglobin Carboxyhemoglobin O2 Delivery Device Liter Flow Critical Value Sodium Potassium Chloride Carbon Dioxide Anion Gap BUN Creatinine Estimated GFR POC Glucose 162 H Random Glucose Calcium Total Bilirubin AST ALT Alkaline Phosphatase Ammonia Total Protein Albumin 09/04/18 09/05/18 09/05/18 18:45 00:23 04:35 WBC 13.5 H D RBC 3.60 L Hgb 11.0 L Hct 33.4 L MCV 92.7 MCH 30.6 MCHC 33.0 RDW 15.2 Plt Count 200 MPV 8.5 Prelim Diff (Auto) Slide review pending Neut % (Auto) 90.0 H Lymph % (Auto) 2.8 L [place] % (Auto) 7.1 Eos % (Auto) 0.0 Baso % (Auto) 0.1 Neut # (Auto) 12.1 H Lymph # (Auto) 0.4 L [place] # (Auto) 1.0 H Eos # (Auto) 0.0 Baso # (Auto) 0.0 WBC Differential . Diff Scan Auto diff confirmed Differential Comment . Platelet Estimate Normal Platelet Morphology Normal Ovalocytes 1+ H PT INR APTT Puncture Site Right radial Patient Temperature 98.6 O2 Saturation 93 ABG pH 7.48 H ABG pCO2 34 L ABG pO2 76 ABG HCO3 25 ABG O2 Content 12.9 ABG Base Excess 1.5 ABG Methemoglobin 1.4 Parveen Test Present Hemoglobin 9.8 L Carboxyhemoglobin 1.6 O2 Delivery Device Nasal cannula Liter Flow 4.00 Critical Value No Sodium Potassium Chloride Carbon Dioxide Anion Gap BUN Creatinine Estimated GFR POC Glucose 127 H Random Glucose Calcium Total Bilirubin AST ALT Alkaline Phosphatase Ammonia Total Protein Albumin 09/05/18 09/05/18 09/05/18 04:35 04:35 08:09 WBC RBC Hgb Hct MCV MCH MCHC RDW Plt Count MPV Prelim Diff (Auto) Neut % (Auto) Lymph % (Auto) [place] % (Auto) Eos % (Auto) Baso % (Auto) Neut # (Auto) Lymph # (Auto) [place] # (Auto) Eos # (Auto) Baso # (Auto) WBC Differential Diff Scan Differential Comment Platelet Estimate Platelet Morphology Ovalocytes PT 29.8 H INR 3.0 APTT Puncture Site Patient Temperature O2 Saturation ABG pH ABG pCO2 ABG pO2 ABG HCO3 ABG O2 Content ABG Base Excess ABG Methemoglobin Parveen Test Hemoglobin Carboxyhemoglobin O2 Delivery Device Liter Flow Critical Value Sodium 143 Potassium 3.2 L Chloride 102 Carbon Dioxide 29.8 Anion Gap 11 BUN 78 H Creatinine 3.36 H Estimated GFR 18 L POC Glucose Random Glucose 142 H Calcium 8.1 L Total Bilirubin 9.4 H AST 300 H ALT 1793 H Alkaline Phosphatase 83 Ammonia Less than 10 L Total Protein 5.4 L Albumin 2.7 L Microbiology 09/02/18 21:03 Aerobic Blood Culture - Preliminary Blood - Peripheral No growth in 3 days Anaerobic Blood Culture - Preliminary No growth in 3 days 09/02/18 21:08 Aerobic Blood Culture - Preliminary Blood - Peripheral No growth in 3 days Anaerobic Blood Culture - Preliminary No growth in 3 days 09/01/18 00:05 Aerobic Blood Culture - Preliminary Blood - Peripheral No growth in 4 days Anaerobic Blood Culture - Preliminary No growth in 4 days 08/31/18 22:20 Aerobic Blood Culture - Final Blood - Peripheral Viridans streptococcus grp Anaerobic Blood Culture - Final No growth in 5 days Result Diagrams: 09/05/18 04:35 09/05/18 04:35 Imaging: ITS Impressions Abdomen/Pelvis CT 09/01/18 00:00 CONCLUSION: 1. Trace ascites, nonspecific. Also mild body wall edema. No organized or drainable fluid. 2. Diverticulosis of the sigmoid colon. No diverticulitis or other acute inflammatory changes. 3. Atherosclerosis of the aorta. Chest CT 09/01/18 00:00 CONCLUSION: 1. Bilateral pneumonia, especially right upper lobe. 2. Small bilateral pleural effusions; dependent/compressive atelectasis of both lower lobes. 3. Panchamber enlargement of the heart. Head CT 09/04/18 00:00 CONCLUSION: 1. Negative noncontrast head CT. 2. Suboptimal study secondary to motion artifact. . Liver Ultrasound 09/04/18 00:00 CONCLUSION: 1. Small nodular liver with trace ascites 2. No focal mass. Chest X-Ray 09/05/18 05:00 CONCLUSION: Interval extubation. Slight interval worsening in aeration. Abdomen X-Ray 09/05/18 12:26 CONCLUSION: Feeding tube is in place with the tip in the distal stomach. Assessment and Plan - Assessment (1) Gross hematuria Code(s): R31.0 - Gross hematuria Status: Acute - Plan Urologic impression: Recent development gross hematuria related to traumatic catheterization attempt which is now resolving. Recommendations: 1. Continue with Escamilla catheter to gravity drainage 2. Irrigate Escamilla catheter as needed for clots 3. Trial of voiding after overall medical status improved 4. We will be available as needed.
--- NOTE | 2018-09-05 14:52 | P.PNNP ---
Subjective Interval history: Patient has history of A. fib he has gross hematuria which is resolving Physical Exam Vital signs: Vital Signs 09/04/18 15:00 09/04/18 15:15 09/04/18 15:30 Temperature Pulse Rate 105 H 101 H 105 H Respiratory Rate 25 H 25 H 21 Blood Pressure 109/55 L 96/58 L 92/53 L Pulse Oximetry 09/04/18 15:45 09/04/18 16:00 09/04/18 16:15 Temperature 97.3 F L Pulse Rate 96 H 103 H 106 H Respiratory Rate 11 L 24 29 H Blood Pressure 87/51 L 93/63 L 90/66 L Pulse Oximetry 09/04/18 16:30 09/04/18 16:45 09/04/18 17:00 Temperature Pulse Rate 107 H 105 H 112 H Respiratory Rate 25 H 20 22 Blood Pressure 104/65 97/53 L 114/68 Pulse Oximetry 09/04/18 17:15 09/04/18 17:30 09/04/18 17:45 Temperature Pulse Rate 110 H 109 H 110 H Respiratory Rate 20 22 20 Blood Pressure 104/59 L 100/59 L 87/60 L Pulse Oximetry 95 96 09/04/18 18:00 09/04/18 18:15 09/04/18 18:31 Temperature Pulse Rate 112 H 106 H 102 H Respiratory Rate 24 9 L 10 L Blood Pressure 103/62 93/55 L 107/51 L Pulse Oximetry 96 94 L 93 L 09/04/18 18:45 09/04/18 18:46 09/04/18 18:49 Temperature Pulse Rate 103 H 102 H 105 H Respiratory Rate 10 L 9 L 19 Blood Pressure 71/41 L 81/52 L 82/51 L Pulse Oximetry 92 L 93 L 96 09/04/18 19:00 09/04/18 19:15 09/04/18 19:30 Temperature Pulse Rate 111 H 107 H 101 H Respiratory Rate 18 9 L 9 L Blood Pressure 105/61 96/63 L 89/60 L Pulse Oximetry 96 95 95 09/04/18 19:45 09/04/18 20:00 09/04/18 20:15 Temperature 97.6 F Pulse Rate 94 H 104 H 100 H Respiratory Rate 9 L 7 L 8 L Blood Pressure 85/57 L 99/57 L 96/60 L Pulse Oximetry 95 95 96 09/04/18 20:30 09/04/18 20:45 09/04/18 20:55 Temperature Pulse Rate 101 H 107 H 106 H Respiratory Rate 8 L 14 16 Blood Pressure 99/59 L 102/62 Pulse Oximetry 96 96 98 09/04/18 21:00 09/04/18 21:15 09/04/18 21:30 Temperature Pulse Rate 112 H 120 H 118 H Respiratory Rate 16 20 21 Blood Pressure 90/68 L 99/67 L 102/69 Pulse Oximetry 99 95 95 09/04/18 21:45 09/04/18 22:00 09/04/18 22:15 Temperature Pulse Rate 112 H 113 H 108 H Respiratory Rate 17 19 9 L Blood Pressure 109/61 109/65 97/65 L Pulse Oximetry 95 96 96 09/04/18 22:30 09/04/18 22:45 09/04/18 23:00 Temperature Pulse Rate 112 H 110 H 114 H Respiratory Rate 16 18 19 Blood Pressure 104/68 106/66 108/66 Pulse Oximetry 95 95 96 09/04/18 23:15 09/04/18 23:30 09/04/18 23:45 Temperature Pulse Rate 108 H 113 H 111 H Respiratory Rate 21 19 16 Blood Pressure 116/66 115/59 L 93/60 L Pulse Oximetry 96 98 95 09/05/18 00:00 09/05/18 00:15 09/05/18 00:30 Temperature Pulse Rate 119 H 111 H 114 H Respiratory Rate 22 17 18 Blood Pressure 103/72 108/72 104/72 Pulse Oximetry 96 96 97 09/05/18 00:45 09/05/18 01:00 09/05/18 01:15 Temperature Pulse Rate 110 H 115 H 113 H Respiratory Rate 18 16 17 Blood Pressure 114/76 117/71 104/70 Pulse Oximetry 97 97 96 09/05/18 01:30 09/05/18 01:45 09/05/18 02:00 Temperature Pulse Rate 105 H 105 H 109 H Respiratory Rate 20 18 19 Blood Pressure 106/73 99/66 L 103/66 Pulse Oximetry 97 97 96 09/05/18 02:15 09/05/18 02:30 09/05/18 02:45 Temperature Pulse Rate 112 H 110 H 104 H Respiratory Rate 17 14 10 L Blood Pressure 111/64 94/63 L 103/61 Pulse Oximetry 94 L 95 96 09/05/18 03:00 09/05/18 03:15 09/05/18 03:30 Temperature Pulse Rate 101 H 112 H 111 H Respiratory Rate 10 L 19 19 Blood Pressure 102/50 L 101/63 95/68 L Pulse Oximetry 96 95 97 09/05/18 03:45 09/05/18 04:00 09/05/18 04:15 Temperature 97.8 F Pulse Rate 110 H 113 H 110 H Respiratory Rate 18 19 16 Blood Pressure 107/66 122/66 119/62 Pulse Oximetry 94 L 95 96 09/05/18 04:30 09/05/18 04:45 09/05/18 05:00 Temperature Pulse Rate 103 H 110 H 114 H Respiratory Rate 20 16 18 Blood Pressure 99/62 L 118/67 114/68 Pulse Oximetry 95 95 95 09/05/18 05:15 09/05/18 05:30 09/05/18 05:45 Temperature Pulse Rate 111 H 112 H 110 H Respiratory Rate 19 Blood Pressure 118/62 130/69 122/68 Pulse Oximetry 95 94 L 70 L 09/05/18 06:00 09/05/18 06:15 09/05/18 06:30 Temperature Pulse Rate 116 H 112 H 117 H Respiratory Rate Blood Pressure 123/63 109/56 L 111/60 Pulse Oximetry 100 90 L 09/05/18 07:00 09/05/18 08:00 09/05/18 08:02 Temperature 98.3 F Pulse Rate 120 H 115 H 113 H Respiratory Rate 20 18 Blood Pressure 118/65 118/65 Pulse Oximetry 96 96 09/05/18 08:30 09/05/18 09:00 09/05/18 10:00 Temperature Pulse Rate 116 H 119 H 119 H Respiratory Rate 20 Blood Pressure 102/61 Pulse Oximetry 91 L 09/05/18 11:00 Temperature Pulse Rate 111 H Respiratory Rate Blood Pressure Pulse Oximetry Intake & Output 09/04/18 09/05/18 09/05/18 18:59 06:59 18:59 Intake Total 1138.5 / 1138.5 500 / 500 350 / 350 Output Total 1125 / 1125 1500 / 1500 Balance 13.5 / 13.5 -1000 / -1000 350 / 350 Weight 77.2 kg Intake: IV 1138.5 / 1138.5 500 / 500 350 / 350 KCl 40 mEq Premix Inj 40 meq In 100 / 100 100 ml @ 0 mls/hr .ROUTE .[facility]- [facility] Rx#:[id number] Cordarone Inj 450 MG In D5W Inj 250 / 250 250 / 250 250 / 250 241 ML @ 1 MG/MIN 33.33 mls/hr IV.CONT TITRATE PRN Rx#: [id number] Dobutrex Inj 500 MG In D5W Inj 125 / 125 210 ML @ 2.5 MCG/KG/MIN 5.17 mls/hr IV.CONT .Q24H [facility] Rx#: [id number] Flexbumin 25% Inj 50 ML @ 50 50 / 50 mls/hr IV.SIG Q12H [facility] Rx#: [id number] Azithromycin Inj 500 MG In NS 250 / 250 Inj 250 ML @ 250 mls/hr IV.SIG Q24H [facility] Rx#:[id number] Magnesium Sulfate 1 gm/D5W 100 200 / 200 ml Premix 200 ML @ 0 mls/hr IV. SIG .[facility] Rx#:[id number] Vitamin K Inj 10 MG In D5W Inj 51 / 51 50 ML @ 102 mls/hr IV.SIG ONCE ONE Rx#:[id number] KCl 40 mEq Premix Inj 40 meq In 100 / 100 100 ml @ 25 mls/hr IV.SIG Q4H [facility] Rx#:[id number] Vancomycin Inj 1,250 MG In NS 262.5 / 262.5 Inj 250 ML @ 250 mls/hr IV.SIG ONCE ONE Rx#:[id number] Rocephin Inj 2,000 MG In NS Inj 100 / 100 100 ML @ 200 mls/hr IV.SIG Q24H [facility] Rx#:[id number] Oral 0 / 0 Output: Urine Amount (Catheter) 1125 / 1125 1500 / 1500 Indwelling Urethral Catheter 1125 / 1125 1500 / 1500 Other: Bladder Irrigation Fluid - Amount Drained Indwelling Urethral Catheter 120 Date of Last Bowel Movement 08/29/18 08/29/18 08/29/18 # Bowel Movements 0 Narrative: General: Elderly gentleman lying comfortably in bed on nasal cannula. Patient was difficult to arouse elicit answers from. Patient had dry crusted blood around inner lips and oral mucosa. Patient currently in soft restraints. Cardio: Irregularly irregular. 2+ pedal pulses. Patient has subclavian central line in place. Pulmonary: Crackles appreciated in all lung [place] bilaterally. Patient has poor air movement. GI: Distended, but did elicit pain to palpation. Patient had normal active bowel sounds. Extremities: No edema noted in lower extremities. Patient's arms are significantly edematous bilaterally, from elbow to fingertips. Neuro: Patient was minimally awake and alert but not verbally responsive. - Urinary Catheter Management Indwelling Urethral Catheter Cath placed during this visit: yes, but has since been removed by the nurse Reason for continuing: Decision to DC catheter Insertion date: 08/31/18 Insertion time: 22:00 Removal date: 09/04/18 Removal time: 15:40 Assessment and Plan - Assessment (1) Acute kidney injury Code(s): N17.9 - Acute kidney failure, unspecified Status: Deleted Plan: Likely due to ATN due to hypoperfusion, possible sepsis. Patient is seen by urology and they are following closely hematuria is improving possible [place] trauma Patient received Diamox 500 mg IV Bumex 1 mg every 6 hourly Urine output 2625 mL There is no immediate need to initiate dialysis. His urine output has improved. (2) Cardiomyopathy Code(s): I42.9 - Cardiomyopathy, unspecified Status: Chronic Plan: Acute on chronic systolic heart failure. Cardiology following. (3) Atrial fibrillation with rapid ventricular response Code(s): I48.91 - Unspecified atrial fibrillation Status: Acute Plan: s/p cardioversion. On Amiodarone. (4) Transaminitis Code(s): R74.0 - Nonspecific elevation of levels of transaminase and lactic acid dehydrogenase [LDH] Status: Deleted Plan: Due to ischemic hepatitis. Improving.
[2018-09-05] MEDS: Latanoprost 0.005% Opth Drops 2.5 ML Bottle EACH EYE SCH (18:45)
[2018-09-06] MEDS: Insulin NovoLIN Regular Correctional Sugar Inj SQ SCH ×5 (00:42→23:43)
[2018-09-06] MEDS: Hydrocortisone Sod Succinate 100 MG Vial IV.PUSH SCH ×4 (02:30→20:53)
[2018-09-06 04:31] LABS: Hematocrit 35.4 % (39.0-51.0); Hemoglobin 11.5 gm/dL (13.0-17.0); Mean Corpuscular HGB Conc 32.3 % (32.0-36.0); Mean Corpuscular Hemoglobin 30.6 pg (27.0-34.0); Mean Corpuscular Volume 94.6 fL (80.0-100.0); Mean Platelet Volume 9.2 fL (7.0-11.0); Platelet Count 185 th/mm3 (150-450); Red Blood Count 3.75 mil/mm3 (4.50-5.90); Red Cell Distribution Width 15.5 % (11.6-17.2); White Blood Count 14.9 th/mm3 (4.0-11.0)
[2018-09-06 04:41] LABS: Prothrombin Time 20.7 sec (9.8-11.6)
[2018-09-06 04:56] LABS: Alanine Aminotransferase 1245 U/L (12-78); Albumin 2.7 g/dL (3.4-5.0); Alkaline Phosphatase 87 U/L (45-117); Anion Gap 11 meq/L (5-15); Aspartate Aminotransferase 171 U/L (15-37); Blood Urea Nitrogen 86 mg/dL (7-18); Calcium 8.5 mg/dL (8.5-10.1); Chloride 107 meq/L (98-107); Glomerular Filtration Rate 19 mL/min (>89); Magnesium 2.5 mg/dL (1.5-2.5); Phosphorus 3.4 mg/dL (2.5-4.9); Prealbumin 7 mg/dL (20-40); Sodium 148 meq/L (136-145); Total Protein 5.5 g/dL (6.4-8.2)
[2018-09-06] MEDS: Oral Hygiene Kit OROPHARYNG SCH ×4 (04:57→23:53)
[2018-09-06 04:58] LABS: Glucose,Random 158 mg/dL (74-106)
[2018-09-06] MEDS: Levothyroxine 75 MCG Tablet PO SCH (06:51)
[2018-09-06] MEDS: Famotidine PF Inj 20 MG/2 ML Vial IV.PUSH SCH ×2 (08:10→20:53)
[2018-09-06] MEDS: Chlorhexidine 0.12% Oral Kit 15 ML UDC OROPHARYNG SCH ×2 (08:10→20:53)
--- NOTE | 2018-09-06 12:29 | P.PNFP ---
Subjective Interval history: Patient was seen at bedside this morning. There were no acute events overnight. Both daughter and were present at time of exam and interview. Patient not able to communicate at this time. Per patient has not been able to speak very much last couple days and is only said a few words. She reports that she has not noticed any change overnight or this morning. Patient was able to shake his head no when asked if he was in pain. At one point patient was able to ask for water. Patient denies any subjective fevers, chills, shortness of breath, chest pain, nausea, or vomiting. All questions were answered to the patient's satisfaction. <Abdiaziz Fountain O - 09/06/18 12:44> Results - Labs Result diagrams: 09/06/18 04:15 09/06/18 04:27 <Tiago Le L - 09/06/18 13:19> Abnormal lab results 09/05/18 09/06/18 09/06/18 Range/Units 23:47 04:15 04:15 WBC 14.9 H (4.0-11.0) th/mm3 RBC 3.75 L (4.50-5.90) mil/mm3 Hgb 11.5 L (13.0-17.0) gm/dL Hct 35.4 L (39.0-51.0) % PT 20.7 H (9.8-11.6) sec Sodium (136-145) meq/L Potassium (3.5-5.1) meq/L BUN (7-18) mg/dL Creatinine (0.60-1.30) mg/dL Estimated GFR (>89) mL/min POC Glucose 185 H (68-110) mg/dl Random Glucose (74-106) mg/dL Total Bilirubin (0.2-1.0) mg/dL AST (15-37) U/L ALT (12-78) U/L Ammonia (11-32) mcmol/L Total Protein (6.4-8.2) g/dL Albumin (3.4-5.0) g/dL Prealbumin (20-40) mg/dL 09/06/18 09/06/18 09/06/18 Range/Units 04:15 04:27 06:55 WBC (4.0-11.0) th/mm3 RBC (4.50-5.90) mil/mm3 Hgb (13.0-17.0) gm/dL Hct (39.0-51.0) % PT (9.8-11.6) sec Sodium 148 H (136-145) meq/L Potassium 3.0 L (3.5-5.1) meq/L BUN 86 H (7-18) mg/dL Creatinine 3.18 H (0.60-1.30) mg/dL Estimated GFR 19 L (>89) mL/min POC Glucose 171 H (68-110) mg/dl Random Glucose 158 H (74-106) mg/dL Total Bilirubin 11.6 H (0.2-1.0) mg/dL AST 171 H (15-37) U/L ALT 1245 H (12-78) U/L Ammonia Less than 10 L (11-32) mcmol/L Total Protein 5.5 L (6.4-8.2) g/dL Albumin 2.7 L (3.4-5.0) g/dL Prealbumin 7 L (20-40) mg/dL 09/06/18 Range/Units 11:37 WBC (4.0-11.0) th/mm3 RBC (4.50-5.90) mil/mm3 Hgb (13.0-17.0) gm/dL Hct (39.0-51.0) % PT (9.8-11.6) sec Sodium (136-145) meq/L Potassium (3.5-5.1) meq/L BUN (7-18) mg/dL Creatinine (0.60-1.30) mg/dL Estimated GFR (>89) mL/min POC Glucose 157 H (68-110) mg/dl Random Glucose (74-106) mg/dL Total Bilirubin (0.2-1.0) mg/dL AST (15-37) U/L ALT (12-78) U/L Ammonia (11-32) mcmol/L Total Protein (6.4-8.2) g/dL Albumin (3.4-5.0) g/dL Prealbumin (20-40) mg/dL Short CBC 09/06/18 Range/Units 04:15 WBC 14.9 H (4.0-11.0) th/mm3 Hgb 11.5 L (13.0-17.0) gm/dL Hct 35.4 L (39.0-51.0) % Plt Count 185 (150-450) th/mm3 BMP 09/06/18 04:27 Sodium 148 H Potassium 3.0 L Chloride 107 Carbon Dioxide 30.0 BUN 86 H Creatinine 3.18 H Calcium 8.5 Liver Function 09/06/18 Range/Units 04:27 Total Bilirubin 11.6 H (0.2-1.0) mg/dL AST 171 H (15-37) U/L ALT 1245 H (12-78) U/L Alkaline Phosphatase 87 (45-117) U/L Albumin 2.7 L (3.4-5.0) g/dL <Tiago Le L - 09/06/18 13:19> Abnormal lab results 09/05/18 09/06/18 09/06/18 Range/Units 23:47 04:15 04:15 WBC 14.9 H (4.0-11.0) th/mm3 RBC 3.75 L (4.50-5.90) mil/mm3 Hgb 11.5 L (13.0-17.0) gm/dL Hct 35.4 L (39.0-51.0) % PT 20.7 H (9.8-11.6) sec Sodium (136-145) meq/L Potassium (3.5-5.1) meq/L BUN (7-18) mg/dL Creatinine (0.60-1.30) mg/dL Estimated GFR (>89) mL/min POC Glucose 185 H (68-110) mg/dl Random Glucose (74-106) mg/dL Total Bilirubin (0.2-1.0) mg/dL AST (15-37) U/L ALT (12-78) U/L Ammonia (11-32) mcmol/L Total Protein (6.4-8.2) g/dL Albumin (3.4-5.0) g/dL Prealbumin (20-40) mg/dL 09/06/18 09/06/18 09/06/18 Range/Units 04:15 04:27 06:55 WBC (4.0-11.0) th/mm3 RBC (4.50-5.90) mil/mm3 Hgb (13.0-17.0) gm/dL Hct (39.0-51.0) % PT (9.8-11.6) sec Sodium 148 H (136-145) meq/L Potassium 3.0 L (3.5-5.1) meq/L BUN 86 H (7-18) mg/dL Creatinine 3.18 H (0.60-1.30) mg/dL Estimated GFR 19 L (>89) mL/min POC Glucose 171 H (68-110) mg/dl Random Glucose 158 H (74-106) mg/dL Total Bilirubin 11.6 H (0.2-1.0) mg/dL AST 171 H (15-37) U/L ALT 1245 H (12-78) U/L Ammonia Less than 10 L (11-32) mcmol/L Total Protein 5.5 L (6.4-8.2) g/dL Albumin 2.7 L (3.4-5.0) g/dL Prealbumin 7 L (20-40) mg/dL 09/06/18 Range/Units 11:37 WBC (4.0-11.0) th/mm3 RBC (4.50-5.90) mil/mm3 Hgb (13.0-17.0) gm/dL Hct (39.0-51.0) % PT (9.8-11.6) sec Sodium (136-145) meq/L Potassium (3.5-5.1) meq/L BUN (7-18) mg/dL Creatinine (0.60-1.30) mg/dL Estimated GFR (>89) mL/min POC Glucose 157 H (68-110) mg/dl Random Glucose (74-106) mg/dL Total Bilirubin (0.2-1.0) mg/dL AST (15-37) U/L ALT (12-78) U/L Ammonia (11-32) mcmol/L Total Protein (6.4-8.2) g/dL Albumin (3.4-5.0) g/dL Prealbumin (20-40) mg/dL Short CBC 09/06/18 Range/Units 04:15 WBC 14.9 H (4.0-11.0) th/mm3 Hgb 11.5 L (13.0-17.0) gm/dL Hct 35.4 L (39.0-51.0) % Plt Count 185 (150-450) th/mm3 BMP 09/06/18 04:27 Sodium 148 H Potassium 3.0 L Chloride 107 Carbon Dioxide 30.0 BUN 86 H Creatinine 3.18 H Calcium 8.5 Liver Function 09/06/18 Range/Units 04:27 Total Bilirubin 11.6 H (0.2-1.0) mg/dL AST 171 H (15-37) U/L ALT 1245 H (12-78) U/L Alkaline Phosphatase 87 (45-117) U/L Albumin 2.7 L (3.4-5.0) g/dL <Abdiaziz Fountain O - 09/06/18 12:29> Physical Exam Vital signs: Vital Signs 09/05/18 14:30 09/05/18 15:00 09/05/18 15:01 Temperature Pulse Rate 118 H 121 H 115 H Respiratory Rate 19 20 14 Blood Pressure 106/62 109/88 Pulse Oximetry 09/05/18 15:30 09/05/18 16:00 09/05/18 18:00 Temperature 99 F Pulse Rate 114 H 119 H 119 H Respiratory Rate 23 22 Blood Pressure 102/71 104/57 L Pulse Oximetry 89 L 91 L 09/05/18 19:00 09/05/18 20:00 09/05/18 22:00 Temperature 98.4 F Pulse Rate 121 H 121 H 120 H Respiratory Rate 20 Blood Pressure 103/59 L Pulse Oximetry 96 98 09/05/18 23:00 09/06/18 00:00 09/06/18 01:00 EDT Temperature 98.6 F Pulse Rate 122 H 99 H 99 H Respiratory Rate 12 Blood Pressure 96/56 L Pulse Oximetry 98 09/06/18 01:00 EST 09/06/18 02:00 09/06/18 03:00 Temperature Pulse Rate 99 H 115 H 111 H Respiratory Rate Blood Pressure Pulse Oximetry 09/06/18 04:00 09/06/18 05:00 09/06/18 06:00 Temperature 98.4 F Pulse Rate 116 H 76 101 H Respiratory Rate 17 Blood Pressure 102/66 Pulse Oximetry 98 09/06/18 07:00 09/06/18 08:00 09/06/18 09:00 Temperature 97.3 F L Pulse Rate 115 H 109 H 117 H Respiratory Rate 24 Blood Pressure 109/74 Pulse Oximetry 99 95 99 09/06/18 10:00 09/06/18 11:00 09/06/18 12:00 Temperature Pulse Rate 120 H 116 H 119 H Respiratory Rate Blood Pressure Pulse Oximetry Intake & Output 09/05/18 09/06/18 09/06/18 19:59 06:59 18:59 Intake Total Output Total Balance Weight Intake: IV Cordarone Inj 450 MG In D5W Inj 241 ML @ 1 MG/MIN 33.33 mls/hr IV.CONT TITRATE PRN Rx#: [id number] Azithromycin Inj 500 MG In NS Inj 250 ML @ 250 mls/hr IV.SIG Q24H ANNITA Rx#:[id number] KCl 40 mEq Premix Inj 40 meq In 100 ml @ 25 mls/hr IV.SIG Q4H ANNITA Rx#:[id number] Rocephin Inj 2,000 MG In NS Inj 100 ML @ 200 mls/hr IV.SIG Q24H ANNITA Rx#:[id number] Oral Output: Urine Amount (Catheter) Indwelling Urethral Catheter Other: Date of Last Bowel Movement 08/29/18 # Bowel Movements <Tiago Le L - 09/06/18 13:19> Vital Signs 09/05/18 13:30 09/05/18 14:00 09/05/18 14:30 Temperature Pulse Rate 118 H 115 H 118 H Respiratory Rate 20 18 19 Blood Pressure 109/66 110/69 106/62 Pulse Oximetry 100 09/05/18 15:00 09/05/18 15:01 09/05/18 15:30 Temperature Pulse Rate 121 H 115 H 114 H Respiratory Rate 20 14 23 Blood Pressure 109/88 102/71 Pulse Oximetry 89 L 09/05/18 16:00 09/05/18 18:00 09/05/18 19:00 Temperature 99 F Pulse Rate 119 H 119 H 121 H Respiratory Rate 22 Blood Pressure 104/57 L Pulse Oximetry 91 L 96 09/05/18 20:00 09/05/18 22:00 09/05/18 23:00 Temperature 98.4 F Pulse Rate 121 H 120 H 122 H Respiratory Rate 20 Blood Pressure 103/59 L Pulse Oximetry 98 09/06/18 00:00 09/06/18 01:00 EDT 09/06/18 01:00 EST Temperature 98.6 F Pulse Rate 99 H 99 H 99 H Respiratory Rate 12 Blood Pressure 96/56 L Pulse Oximetry 98 09/06/18 02:00 09/06/18 03:00 09/06/18 04:00 Temperature 98.4 F Pulse Rate 115 H 111 H 116 H Respiratory Rate 17 Blood Pressure 102/66 Pulse Oximetry 98 09/06/18 05:00 09/06/18 06:00 09/06/18 07:00 Temperature Pulse Rate 76 101 H 115 H Respiratory Rate Blood Pressure Pulse Oximetry 99 09/06/18 08:00 09/06/18 09:00 Temperature 97.3 F L Pulse Rate 109 H Respiratory Rate 24 Blood Pressure 109/74 Pulse Oximetry 95 99 Intake & Output 09/05/18 09/06/18 09/06/18 19:59 06:59 18:59 Intake Total Output Total Balance Weight Intake: IV Cordarone Inj 450 MG In D5W Inj 241 ML @ 1 MG/MIN 33.33 mls/hr IV.CONT TITRATE PRN Rx#: [id number] Azithromycin Inj 500 MG In NS Inj 250 ML @ 250 mls/hr IV.SIG Q24H ANNITA Rx#:[id number] KCl 40 mEq Premix Inj 40 meq In 100 ml @ 25 mls/hr IV.SIG Q4H ANNITA Rx#:[id number] Rocephin Inj 2,000 MG In NS Inj 100 ML @ 200 mls/hr IV.SIG Q24H ANNITA Rx#:[id number] Oral Output: Urine Amount (Catheter) Indwelling Urethral Catheter Other: Date of Last Bowel Movement 08/29/18 # Bowel Movements <Abdiaziz Fountain O - 09/06/18 12:29> Narrative: General: Elderly gentleman lying comfortably in bed on nasal cannula. Patient was difficult to arouse elicit answers from. Patient had dry crusted blood around inner lips and oral mucosa. Patient currently in soft restraint. Patient also has a nasogastric feeding tube in place. Eyes: Patient has significant scleral icterus Skin: Patient has jaundiced appearance to skin from head to his feet. Cardio: Irregularly irregular. 2+ pedal pulses. Patient has subclavian central line in place. Pulmonary: Patient has poor air movement. Rhonchi in all lung mcdowell from upper airway secretions. GI: Distended, but did elicit pain to palpation. Patient had normal active bowel sounds. Extremities: No edema noted in lower extremities. Patient's arms continue to be edematous bilaterally, from elbow to fingertips. Neuro: Patient was minimally awake and alert but not verbally responsive. Patient was able to wiggle toes on command further commands were not followed. <Abdiaziz Fountain Gelacio - 09/06/18 13:00> - Urinary Catheter Management Indwelling Urethral Catheter Cath placed during this visit: no <ReyTiago Felipa - 09/06/18 13:19> yes, but has since been removed by the nurse <Abdiaziz Fountain Gelacio - 09/06/18 13:00> Reason for continuing: Gross Hematuria <Abdiaziz Fountain - 09/06/18 12:29> Insertion date: 09/04/18 <Abdiaziz Fountain Gelacio Ruiz 09/06/18 12:29> Insertion time: 15:40 <Abdiaziz Fountain - 09/06/18 12:29> Removal date: 09/04/18 <Abdiaziz Fountain Gelacio Ruiz 09/06/18 12:29> Removal time: 15:40 <Abdiaziz Fountain - 09/06/18 12:29> Assessment and Plan - Assessment (1) Encephalopathy acute Code(s): G93.40 - Encephalopathy, unspecified Status: Acute (2) Streptococcus viridans infection Code(s): A49.1 - Streptococcal infection, unspecified site Status: Acute (3) Cardiogenic shock Code(s): R57.0 - Cardiogenic shock Status: Acute (4) Respiratory failure Code(s): J96.90 - Respiratory failure, unspecified, unspecified whether with hypoxia or hypercapnia Status: Acute (5) Shock liver Code(s): K72.00 - Acute and subacute hepatic failure without coma Status: Acute (6) Bilateral pneumonia Code(s): J18.9 - Pneumonia, unspecified organism Status: Acute (7) Renal failure, acute on chronic Code(s): N17.9 - Acute kidney failure, unspecified; N18.9 - Chronic kidney disease, unspecified Status: Acute (8) Atrial fibrillation with rapid ventricular response Code(s): I48.91 - Unspecified atrial fibrillation Status: Acute (9) Cardiomyopathy Code(s): I42.9 - Cardiomyopathy, unspecified Status: Chronic (10) V-tach Code(s): I47.2 - Ventricular tachycardia Status: Chronic (11) Hyperlipidemia Code(s): E78.5 - Hyperlipidemia, unspecified Status: Acute (12) Hypothyroidism Code(s): E03.9 - Hypothyroidism, unspecified Status: Chronic <Tiago Le - 09/06/18 13:19> (1) Encephalopathy acute Code(s): G93.40 - Encephalopathy, unspecified Status: Acute Plan: Patient continues to be confused and disoriented and minimally arousable. -CT of the head showed no acute bleed -Patient now on ceftriaxone and azithromycin -EEG was consistent with encephalopathic process -Follow-up neurology consult (2) Streptococcus viridans infection Code(s): A49.1 - Streptococcal infection, unspecified site Status: Acute Plan: Blood cultures 08/31 positive for strep viridans. Repeat cultures no growth after 4 days. White count up to 14.9 today. Patient continues to be afebrile. Continue Rocephin Trend white count (3) Cardiogenic shock Code(s): R57.0 - Cardiogenic shock Status: Acute Plan: 83-year-old male with a history of A. fib , hypertension, hyperlipidemia, ICD presented to the ED with worsening shortness of breath. Originally admitted for A.fib with RVR. Patient transferred to the ICU on 08/31 for respiratory failure in the setting of cardiogenic shock. Currently intubated, mechanically ventilated. Field Contact Person managing. -s/p electrical cardioversion 09/01, patient successfully converted to sinus rhythm. Patient had 7 beat run of V. tach that may have been the reason that the patient converted back into atrial fibrillation. Patient seems fluid overloaded today had a crackles on auscultation. -Echo on 09/03 showed an EF of 20%, severe mitral regurgitation, aortic regurgitation, question of vegetation on aortic valve leaflet. -Phenylephrine titrated off and levophed discontinued -Dobutamine discontinued, patient currently not on any inotrope or pressors -Per rebar fabricator hold home PO amiodarone and metoprolol -Continue IV Amiodarone 1mg/min -Follow up with cardiology recommendations (4) Respiratory failure Code(s): J96.90 - Respiratory failure, unspecified, unspecified whether with hypoxia or hypercapnia Status: Acute Plan: Patient currently extubated and satting 94% on 4 L nasal cannula. -Lactic acid trending down -Last ABG on 09/02 demonstrated pH of 7.47, HCO3 of 23, CO2 32 -DuoNeb every 4 hours -Chest CT suggestive of pneumonia -Repeat chest x-ray on 09/05 showed worsening aeration -Continue ceftriaxone and azithromycin (5) Shock liver Code(s): K72.00 - Acute and subacute hepatic failure without coma Status: Acute Plan: Liver enzymes trending down. Continue to monitor. s/p Vit. K x2 (6) Bilateral pneumonia Code(s): J18.9 - Pneumonia, unspecified organism Status: Acute Plan: CT of the chest demonstrated bilateral pneumonia particularly in the right upper lobe. Patient began on broad-spectrum antibiotics. Sputum Gram stain showed multiple white blood cells but no organisms. Patient status post 1 dose of vancomycin. -Strep pneumoniae antigen negative -Legionella antigen negative -Continue oxygenation via nasal cannula -DuoNeb every 4 hours scheduled and as needed -Continue azithromycin (7) Renal failure, acute on chronic Code(s): N17.9 - Acute kidney failure, unspecified; N18.9 - Chronic kidney disease, unspecified Status: Acute Plan: Nephrology on board. Likely due to ATN due to hypoperfusion, possible sepsis. Patient pulled out 18-gauge Escamilla catheter overnight and likely caused urethral trauma. Patient had Coca[employer] colored urine in Escamilla bag this morning. Discontinued Bicarb drip -Continue Bumex 1mg IV q12h -Continue acetazolamide (8) Atrial fibrillation with rapid ventricular response Code(s): I48.91 - Unspecified atrial fibrillation Status: Acute Plan: Cardiology following s/p Cardioversion, patient now in atrial fibrillation again. INR 2. Consider restarting anticoagulation. Continue amiodarone (9) Cardiomyopathy Code(s): I42.9 - Cardiomyopathy, unspecified Status: Chronic Plan: Echo 2D echo on 09/03 with LVEF 20%, severe mitral regurgitation, aortic regurgitation, question of vegetation on aortic valve leaflet. * Please see plan above for cardiogenic shock (10) V-tach Code(s): I47.2 - Ventricular tachycardia Status: Chronic Plan: s/p ICD changed on 07/21/18. Patient had 7 beat run of V. tach on the morning of 09/04. Patient currently in atrial fibrillation (11) Hyperlipidemia Code(s): E78.5 - Hyperlipidemia, unspecified Status: Acute Plan: Hold fenofibrate given acute LFT elevation (12) Hypothyroidism Code(s): E03.9 - Hypothyroidism, unspecified Status: Chronic Plan: TSH within normal limits, free T4 just above the upper limit of normal. -Continue levothyroxine 75mcg daily <Abdiaziz Fountain O - 09/06/18 12:57> - Attending Attestation The exam, history, and the medical decision-making described in the above note were completed with the assistance of the resident physician. I reviewed and agree with the findings presented. I attest that I had a [id number] encounter with the patient on the same day alongside the residents, and personally performed and documented my assessment and findings in the medical record. We had a long meeting with family (, daughter). They are amenable to hospice consultation. We will continue to communicate with family on a daily basis. <Tiago Le - 09/06/18 13:19> <Abdiaziz Fountain O - Last Filed: 09/06/18 12:57> (7) Renal failure, acute on chronic Qualifiers: Acute renal failure type: unspecified Chronic kidney disease stage: unspecified stage Qualified Code(s): N17.9 - Acute kidney failure, unspecified ; N18.9 - Chronic kidney disease, unspecified <Tiago Le - Last Filed: 09/06/18 13:19> (7) Renal failure, acute on chronic Qualifiers: Acute renal failure type: unspecified Chronic kidney disease stage: unspecified stage Qualified Code(s): N17.9 - Acute kidney failure, unspecified ; N18.9 - Chronic kidney disease, unspecified <Abdiaziz Fountain - Last Filed: 09/06/18 12:57> (7) Renal failure, acute on chronic Qualifiers: Acute renal failure type: unspecified Chronic kidney disease stage: unspecified stage Qualified Code(s): N17.9 - Acute kidney failure, unspecified ; N18.9 - Chronic kidney disease, unspecified <Tiago Le L - Last Filed: 09/06/18 13:19> (7) Renal failure, acute on chronic Qualifiers: Acute renal failure type: unspecified Chronic kidney disease stage: unspecified stage Qualified Code(s): N17.9 - Acute kidney failure, unspecified ; N18.9 - Chronic kidney disease, unspecified
[2018-09-06] MEDS ORDERED: Hyoscyamine Liq Drops 0.125 MG/ML 15 ML Bottle SL ONE (13:00)
[2018-09-06] MEDS ORDERED: Hyoscyamine Liq Drops 0.125 MG/ML 15 ML Bottle SL PRN (13:00)
--- NOTE | 2018-09-06 13:41 | P.PNADD ---
Addendum to Inpatient Note Reason for Addendum: Additional Documentation (Off Service note) Additional information: The patient's admission and hospital course is as follows: Patient is an 83-year-old male with a history of A. fib on Xarelto, cardiomyopathy with ejection fraction 17%, moderate MR, moderate AI, hypertension, hyperlipidemia, ventricular tachycardia history with, ICD, COPD who was admitted for worsening shortness of breath on 08/28. He was admitted with a diagnosis of COPD, atrial fibrillation with RVR and cardiology was consulted and placed on a Cardizem infusion for rate control as well as amiodarone. Per cardiology recommendations patient was scheduled to undergo EMILEE with potential ablation the following day. On 08/31 patient became increasingly lethargic with worsening hypoxia shortness of breath. A stat ABG showed 7.07/29/58 with an oxygen saturation of 78. A Halicat was called and patient was intubated and placed on mechanical ventilation due to hypoxia and inability to protect his airway. Patient also received central subclavian line for administration of vasopressors. Stat chest x-ray showed persistent left lower lobe and new right lower lobe infiltrates and patient was placed on broad- spectrum antibiotics with Azactam, Flagyl, and vancomycin. Diagnosed with bilateral pneumonia and cardiogenic shock and as a result suffered liver shock, lactic acidosis, and acute on chronic kidney injury. While patient was intubated a cardioversion was attempted and was initially successful but unfortunately the patient has gone back into A. fib. Blood cultures from 08/31 grew strep viridans and patient was placed on ceftriaxone and other antibiotics with the exception of azithromycin were discontinued. On 09/03 patient was extubated successfully and placed on nasal cannula. On 09/04 patient was found to be confused and disoriented and has continued to decline cognitively since then. Encephalopathy originally thought to be due to intracranial bleeding as patient had INR of 9 at the time the Halicat was called. CT of the head showed no acute intracranial processes. Extensive conversations about prognosis and goals of care were discussed with , daughter and son. now open to the idea of hospice and hospice has been consulted.
--- NOTE | 2018-09-06 15:05 | P.DIET ---
Nutritional Evaluation Type of nutrition evaluation: follow-up Nutrition consult regarding: Tube Feeding Nutrition screening: Weight Loss > 10 lbs Screening comments: reported 20-lb wt loss over the last month NPO x3 TF review Subjective Oral Diet Tolerance Assessment Indicates: Chewing problems Subjective Comments: Nursing Assessment w/ reported difficulties chewing. 100% po for meals here. Objective - Diagnosis AFib RVR, Acute on Chronic Renal Failure - Objective % IBW: 90 Body Weight Used for Calculations: Actual (66.5 kg) Energy Needs - Lower Range (kCal/kg): 30 Energy Needs - Upper Range (kCal/kg): 35 Lower Limit kCal/kg (kCals): 1,995 Upper Limit kCal/kg (kCals): 2,328 Lower Limit Protein Factor (Grams per Kg): 1.0 Upper Limit Protein Factor (Grams per Kg): 1.3 Lower Protein Needs (Protein): 67 Upper Protein Needs (Protein): 86 Dietitian Reviewed in Medical Record: Current diet, Curent medications, Intake & Output, Labs, Medical history Diet Order: NPO Oral Diet Intake Amount: Excellent 90%+ Objective Comments: PMH: AFib, COPD, DM, glaucoma, HLD, HTN, Hypothyroidism, ICD in place, h/o CABG x 5 2009, Ventricular Tachycardia Labs include: BUN 86, Creatinine 3.18, estGFR 19, Glucose 157 LBM 08/29 Assessment Assessment: Pt continues to be at nutritional risk r/t recent reported unintentional wt loss. Pt currently is TFing Jevity 1.5 @ 60mL/hr. RD to recommend Nepro goal rate @ 45mL/hr to provide 1944 kcal, 88g of protein, and 785mL of free water to meet pts nutritional needs. Continue to monitor renal labs and glucose, NPO status. Dietitian will follow. Recommendations: 1. Recommend Nepro goal rate @ 45mL/hr to meet pts nutritional needs 2. Continue to monitor renal labs and glucose 3. Dietitian will follow Dietitian to Monitor: Lab values, Renal labs, Glucose level, Supplement acceptance, Intake & Output, Weight change, PO Intake, Medical course
--- NOTE | 2018-09-06 15:32 | P.PNCC ---
Subjective Subjective Remarks/Hospital Course: 08/31: Patient is 83-year-old male with a history of A. fib on Xarelto, cardiomyopathy with ejection fraction 17%, moderate MR, moderate AI, hypertension, hyperlipidemia, ventricular tachycardia history with, ICD, COPD who was admitted to the [facility] service on 08/28/2018 for worsening shortness of breath. He was admitted with a diagnosis of COPD, atrial fibrillation with RVR and cardiology was consulted. I am unable to locate echo report but according to [facility] admit note Echo 10/2017, EF=17%, LVH, biatrial enlargement,, Mod MR, Mod AI, Mod TR, aortic cusp thickening. Patient has chronic A. fib for which he takes Xarelto, metoprolol, and amiodarone. This was continued and patient was also placed on Cardizem infusion for rate control. Plan was for EMILEE guided cardioversion tomorrow Patient was noted to be increasingly short of breath over the day. He received some Ativan around 10 AM today for presumed anxiety. According to bedside RN patient had labored breathing since the beginning of her shift at around 7 and even prior. Patient became increasingly lethargic with worsening hypoxia shortness of breath. Stat ABG showed 7.07/29/58 with oxygen saturation of 78 and base excess -20.5. A Halicat was called at about 8 pm and patient was moved to the [facility] [place]. I immediately evaluated the patient. Patient was barely responsive tachypneic. Blood pressure was not recordable but pulse was palpable. I ordered stat transfusion of 1 L normal saline bolus, 2 Amps of bicarb to at least partially corrective acidosis prior to intubation and also started Levophed infusion peripherally. After systolic blood pressure was in 60s I proceeded with endotracheal intubation due to hypoxia and lack of airway protection. Patient was intubated and placed on mechanical ventilation. Patient remained in atrial fibrillation RVR, the shock appears to be severe cardiogenic shock worsened by severe acidosis. Levophed was rapidly increased to 40 mcg/min, additional pressors added with Tien-Synephrine and dopamine. I emergently placed a right subclavian central line and also right femoral artery line. Once arterial line is placed and flow Trac monitoring is initiated. I have given digoxin 0.5 mg IV x1 for rate control, start amiodarone bolus and infusion for rate control. Start dobutamine infusion as the patient has an EF of 17%. Duque cultures will be sent a Kiser catheter will be inserted as the patient is almost anuric. Broad-spectrum antibiotics with Azactam Flagyl and vancomycin. Chest x-ray shows persistent left lower lobe and new right lower lobe infiltrates. This appears to be a combination of severe cardiogenic and septic shock and prognosis is guarded at this time 09/01: Remains orally intubated on mechanical ventilation. This morning at the time of my evaluation patient was easily arousable following commands. He was on phenylephrine/Levophed/dobutamine for pressor support/inotropic support as well as amiodarone gtt. Over the course of the day his phenylephrine was titrated off and Levophed was decreased to 5 mics per minute after starting vasopressin gtt 0.04 units/min. After discussion with Dr. felix proceeded with electrical cardioversion to convert him out of his A. fib. Patient was successfully cardioverted to sinus rhythm. He has been essentially anuric. 09/02: Sedated, arousable, orally intubated on mechanical ventilation. On dobutamine 2.5 mics per KG per minute and amiodarone 1 mg/min. Bicarb drip discontinued. Lactic acid improving. INR elevated this morning for which vitamin K 10 mg IV given. No evidence of active bleeding. 11/03: Arousable off sedation, orally intubated on mechanical ventilation at the time of my evaluation this morning. On dobutamine 2.5 mics per KG per minute and amiodarone gtt. Fentanyl stopped. 11/04: Disoriented and confused overnight. Precedex started earlier however became hypotensive and hence was stopped. Dobutamine stopped earlier this morning due to run of V. tach following which patient converted into A. fib. No hypotension. Continues to make urine. On nasal cannula. Electrolytes being replaced. Head CT negative for bleed. Will need anticoagulation with heparin for A. fib started once INR drops below 3. INR today 3.4. 2D echo done on 09/03 4 1 blood culture positive for strep viridans showed aortic valve vegetation suspected, EMILEE recommended. 09/05: remains extubated, but very confused. remains with severe volume overload and pulmonary edema. no overall improvements. LFTs remains elevated, Cr remains elevated. family continues to press on for aggressive care. failed swallow eval. will need enteral access for ongoing nutrition. 09/06: remains on NC o2, but remains confused. at bedside and very tearful. she asked me many questions about making him comfortable and hospice care. I think this is appropriate given we have made no large improvements in overall functional status during this hospital stay. we have consulted hospice to ask them to assist her. I did tell her that if we made him comfortable, it meant that if his heart stopped or he stopped breathing, we wouldn't put him on life support or do CPR. She states, "I suppose that is the right thing to do." Objective Vital Signs / I&O: Vital Signs 09/05/18 18:00 09/05/18 19:00 09/05/18 20:00 Temperature 36.9 C Pulse Rate 119 H 121 H 121 H Respiratory Rate 20 Blood Pressure 103/59 L Pulse Oximetry 96 98 09/05/18 22:00 09/05/18 23:00 09/06/18 00:00 Temperature 37.0 C Pulse Rate 120 H 122 H 99 H Respiratory Rate 12 Blood Pressure 96/56 L Pulse Oximetry 98 09/06/18 01:00 EDT 09/06/18 01:00 EST 09/06/18 02:00 Temperature Pulse Rate 99 H 99 H 115 H Respiratory Rate Blood Pressure Pulse Oximetry 09/06/18 03:00 09/06/18 04:00 09/06/18 05:00 Temperature 36.9 C Pulse Rate 111 H 116 H 76 Respiratory Rate 17 Blood Pressure 102/66 Pulse Oximetry 98 09/06/18 06:00 09/06/18 07:00 09/06/18 08:00 Temperature 36.3 C L Pulse Rate 101 H 115 H 109 H Respiratory Rate 24 Blood Pressure 109/74 Pulse Oximetry 99 95 09/06/18 09:00 09/06/18 10:00 09/06/18 11:00 Temperature Pulse Rate 117 H 120 H 116 H Respiratory Rate Blood Pressure Pulse Oximetry 99 09/06/18 12:00 Temperature Pulse Rate 119 H Respiratory Rate Blood Pressure Pulse Oximetry Intake & Output 09/05/18 09/06/18 09/06/18 19:59 06:59 18:59 Intake Total Output Total Balance Weight Intake: IV Cordarone Inj 450 MG In D5W Inj 241 ML @ 1 MG/MIN 33.33 mls/hr IV.CONT TITRATE PRN Rx#: [id number] Azithromycin Inj 500 MG In NS Inj 250 ML @ 250 mls/hr IV.SIG Q24H [facility] Rx#:[id number] KCl 40 mEq Premix Inj 40 meq In 100 ml @ 25 mls/hr IV.SIG Q4H [facility] Rx#:[id number] Rocephin Inj 2,000 MG In NS Inj 100 ML @ 200 mls/hr IV.SIG Q24H [facility] Rx#:[id number] Oral Output: Urine Amount (Catheter) Indwelling Urethral Catheter Other: Date of Last Bowel Movement 08/29/18 # Bowel Movements Result Diagrams: 09/06/18 04:15 09/06/18 04:27 Objective Remarks: GENERAL: frail elderly male, lying in bed, no acute distress HEENT: Normocephalic. Atraumatic. Pupils equal, round, reactive, conjugate. Mucous membranes are moist NECK: Trachea is midline. +JVD. CHEST: equal chest rise. nc o2. CARDIOVASCULAR: tachycardic, irregularly irregular. afib. ABDOMEN: Soft, nontender, nondistended. No guarding. MUSCULOSKELETAL: Pulses 2+. No peripheral edema. NEUROLOGICAL: RASS +1. CAM+. confused. follows commands x 4. Assessment and Plan - Assessment and Plan Plan: NEURO: Encephalopathy: Suspect delirium, at risk for embolic events from A. fib as well as aortic valve vegetation. -CT head negative for bleed on 08/31 and 09/04. -Neurology consult requested. -We will need anticoagulation resume once INR drops below 3. INR now 2- will hold off on anticoagulation until a hospice plan can be formulated. RESP: Acute hypoxemic respiratory failure- resolving Bibasilar pneumonia COPD Pulmonary Edema -Emergently intubated for severe respiratory distress hypoxia -Tolerated CPAP trial and extubated on 09/03 to nasal cannula -DuoNeb every 4 hours scheduled and as needed -Broad-spectrum antibiotics as below -CT chest suggestive of pneumonia CV: Severe cardiogenic shock- resolving. Severe metabolic acidosis- resolved Severe lactic acidosis 15.7- persistent, failure to clear Atrial fibrillation with rapid ventricular response s/p cardioversion- back in afib. History of CABG Ischemic cardiomyopathy with ejection fraction 17% Moderate MR, moderate AI -Dobutamine stopped on 09/04 following nonsustained V. tach and conversion to A. fib, off phenylephrine/Levophed. Vasopressin titrated off. - Amiodarone gtt 1mg/min s/p electrical cardioversion with 100 joules X2 on 09/01, converted to sinus rhythm, converted back to A. fib on 09/04 -Hold home medications p.o. amiodarone, p.o. metoprolol -IV digoxin 0.5 mg x1 on 08/31. -Lactic acid came back at 15.7 on 08/31, serial lactic acids not clearing: very poor prognostic indicator if lactate cannot clear. -Stress dose steroids: start weaning now that he is off vasopressors. 2D echo on 09/03 with LVEF 20%, severe mitral regurgitation, aortic regurgitation , question of vegetation on aortic valve leaflet. Dr. felix from cardiology following. GI: Acute protein calorie malnutrition- severe acute dysphagia - failed swallow eval - place DHT - start tube feeds - IV famotidine -CT abdomen pelvis with some ascites : THERESA/CKD- persistent -Monitor renal function closely. - diuresis: bumex 1mg iv q6h - diamox 500mg iv q8h. d/c kiser as it is causing him discomfort. ID: Septic shock- resolving. Probable pneumonia -Antibiotics with IV Azactam, Flagyl, azithromycin, single dose of vancomycin -Blood urine and sputum cultures Blood cultures from 08/31 1 out of 2 sets growing strep viridans. ID consult requested. Repeat blood cultures on 09/03 no growth so far. Transthoracic echo with question of aortic valve vegetation on 09/03. EMILEE recommended, however with agitation and respiratory status tenuous, risk/benefit is in favor of delaying EMILEE for now. -CT chest abdomen pelvis as above HEME: -Monitor CBC, coags -Hold Xarelto due to extremely elevated INR and renal failure -Vitamin K 10 mg IV x2 on 09/02 ENDO: Hypoglycemia most likely from sepsis Hypothyroidism Mild hyperkalemia Hypocalcemia -Electrolyte replacement as needed -Hypoglycemia protocol -Replace calcium PROPH: -Bilateral lower extremity SCDs. famotidine. Xarelto to be held. INR remains elevated. LINES: -Right subclavian central line Palliative care consulted and following to assist with deciding goals of therapy.
[2018-09-06] MEDS ORDERED: Potassium Chloride 25 MEQ Effervescent Tablet PO ONE (16:00)
[2018-09-06 16:20] LABS: INR 1.9 Ratio; Prothrombin Time 19.6 sec (9.8-11.6)
--- NOTE | 2018-09-06 17:06 | P.PNNP ---
Subjective Interval history: Patient is weak and tired confused Physical Exam Vital signs: Vital Signs 09/05/18 19:00 09/05/18 20:00 09/05/18 22:00 Temperature 98.4 F Pulse Rate 121 H 121 H 120 H Respiratory Rate 20 Blood Pressure 103/59 L Pulse Oximetry 96 98 09/05/18 23:00 09/06/18 00:00 09/06/18 01:00 EDT Temperature 98.6 F Pulse Rate 122 H 99 H 99 H Respiratory Rate 12 Blood Pressure 96/56 L Pulse Oximetry 98 09/06/18 01:00 EST 09/06/18 02:00 09/06/18 03:00 Temperature Pulse Rate 99 H 115 H 111 H Respiratory Rate Blood Pressure Pulse Oximetry 09/06/18 04:00 09/06/18 05:00 09/06/18 06:00 Temperature 98.4 F Pulse Rate 116 H 76 101 H Respiratory Rate 17 Blood Pressure 102/66 Pulse Oximetry 98 09/06/18 07:00 09/06/18 08:00 09/06/18 09:00 Temperature 97.3 F L Pulse Rate 115 H 109 H 117 H Respiratory Rate 24 Blood Pressure 109/74 Pulse Oximetry 99 95 99 09/06/18 10:00 09/06/18 11:00 09/06/18 12:00 Temperature Pulse Rate 120 H 116 H 119 H Respiratory Rate Blood Pressure Pulse Oximetry Intake & Output 09/05/18 09/06/18 09/06/18 19:59 06:59 18:59 Intake Total 100 / 100 Output Total Balance 100 / 100 Weight Intake: IV 100 / 100 Cordarone Inj 450 MG In D5W Inj 241 ML @ 1 MG/MIN 33.33 mls/hr IV.CONT TITRATE PRN Rx#: [id number] Azithromycin Inj 500 MG In NS Inj 250 ML @ 250 mls/hr IV.SIG Q24H [facility] Rx#:[id number] KCl 40 mEq Premix Inj 40 meq In 100 ml @ 25 mls/hr IV.SIG Q4H [facility] Rx#:[id number] Rocephin Inj 2,000 MG In NS Inj 100 / 100 100 ML @ 200 mls/hr IV.SIG Q24H [facility] Rx#:[id number] Oral Output: Urine Amount (Catheter) Indwelling Urethral Catheter Other: Date of Last Bowel Movement 08/29/18 # Bowel Movements Narrative: General: Elderly gentleman lying comfortably in bed on nasal cannula. Patient was difficult to arouse elicit answers from. Patient had dry crusted blood around inner lips and oral mucosa. Patient currently in soft restraint. Patient also has a nasogastric feeding tube in place. Eyes: Patient has significant scleral icterus Skin: Patient has jaundiced appearance to skin from head to his feet. Cardio: Irregularly irregular. 2+ pedal pulses. Patient has subclavian central line in place. Pulmonary: Patient has poor air movement. Rhonchi in all lung mcdowell from upper airway secretions. GI: Distended, but did elicit pain to palpation. Patient had normal active bowel sounds. Extremities: No edema noted in lower extremities. Patient's arms continue to be edematous bilaterally, from elbow to fingertips. Neuro: Patient was minimally awake and alert but not verbally responsive. Patient was able to wiggle toes on command further commands were not followed. - Urinary Catheter Management Indwelling Urethral Catheter Cath placed during this visit: yes, but has since been removed by the nurse Reason for continuing: Gross Hematuria Insertion date: 09/04/18 Insertion time: 15:40 Removal date: 09/04/18 Removal time: 15:40 Assessment and Plan - Assessment (1) Acute kidney injury Code(s): N17.9 - Acute kidney failure, unspecified Status: Deleted Plan: Likely due to ATN due to hypoperfusion, possible sepsis. Patient received Diamox 500 mg IV every 8 hours Bumex 1 mg every 6 hourly Creatinine remains higher family is thinking of comfort care There is no immediate need to initiate dialysis. His urine output has improved. Dr. Álvarez to follow (2) Cardiomyopathy Code(s): I42.9 - Cardiomyopathy, unspecified Status: Chronic Plan: Acute on chronic systolic heart failure. Cardiology following. (3) Atrial fibrillation with rapid ventricular response Code(s): I48.91 - Unspecified atrial fibrillation Status: Acute Plan: s/p cardioversion. On Amiodarone. (4) Transaminitis Code(s): R74.0 - Nonspecific elevation of levels of transaminase and lactic acid dehydrogenase [LDH] Status: Deleted Plan: Due to ischemic hepatitis. Improving.
[2018-09-06] MEDS: Latanoprost 0.005% Opth Drops 2.5 ML Bottle EACH EYE SCH (20:53)
[2018-09-06] MEDS: Azithromycin Inj 500 MG in Sodium Chlor 0.9% Inj 250 ML IV.SIG SCH (23:53)
[2018-09-07] MEDS: Hydrocortisone Sod Succinate 100 MG Vial IV.PUSH SCH ×2 (01:35→08:02)
[2018-09-07] MEDS: Oral Hygiene Kit OROPHARYNG SCH (03:39)
[2018-09-07 05:18] LABS: Hematocrit 39.4 % (39.0-51.0); Hemoglobin 12.6 gm/dL (13.0-17.0); Mean Corpuscular HGB Conc 32.1 % (32.0-36.0); Mean Corpuscular Hemoglobin 30.6 pg (27.0-34.0); Mean Corpuscular Volume 95.5 fL (80.0-100.0); Platelet Count 160 th/mm3 (150-450); Red Blood Count 4.12 mil/mm3 (4.50-5.90); Red Cell Distribution Width 16.1 % (11.6-17.2); White Blood Count 17.9 th/mm3 (4.0-11.0)
[2018-09-07 05:31] LABS: INR 1.9 Ratio; Prothrombin Time 19.4 sec (9.8-11.6)
[2018-09-07 05:48] LABS: Alanine Aminotransferase 862 U/L (12-78); Albumin 2.5 g/dL (3.4-5.0); Alkaline Phosphatase 116 U/L (45-117); Anion Gap 12 meq/L (5-15); Aspartate Aminotransferase 109 U/L (15-37); Blood Urea Nitrogen 92 mg/dL (7-18); Calcium 8.3 mg/dL (8.5-10.1); Carbon Dioxide 28.9 meq/L (21.0-32.0); Chloride 108 meq/L (98-107); Glomerular Filtration Rate 20 mL/min (>89); Glucose,Random 211 mg/dL (74-106); Magnesium 2.3 mg/dL (1.5-2.5); Phosphorus 2.9 mg/dL (2.5-4.9); Sodium 149 meq/L (136-145); Total Protein 5.6 g/dL (6.4-8.2)
[2018-09-07] MEDS: Levothyroxine 75 MCG Tablet PO SCH (06:00)
[2018-09-07 06:08] LABS: Potassium 2.6 meq/L (3.5-5.1)
[2018-09-07] MEDS: Insulin NovoLIN Regular Correctional Sugar Inj SQ SCH (06:13)
[2018-09-07] MEDS ORDERED: Potassium Chloride 25 MEQ Effervescent Tablet PO ONE (08:00)
[2018-09-07] MEDS: Famotidine PF Inj 20 MG/2 ML Vial IV.PUSH SCH (08:02)
[2018-09-07] MEDS: Chlorhexidine 0.12% Oral Kit 15 ML UDC OROPHARYNG SCH (08:03)
--- NOTE | 2018-09-07 10:37 | P.PNPAL ---
Reason for Visit Reason for visit: a. To assist with evaluation and management of symptoms including: pain, dyspnea, encephalopathy, restlessness. b. To assist medical decision maker(s) with: better understanding of current medical conditions; weighing benefits/burdens of medical treatment options; making medical treatment decisions. Subjective Subjective/Interval History: Patient seen and examined in ICU. and daughter, Winnie at bedside. Spoke with nurseMerna. Discussed with resident and inspector production plastic parts team. Patient is more confused today. Increased jaundice today. Total bilirubin 14.2. Lungs are congested. Bilateral coarse breath sounds, stopped tube feeding. Patient appears to be imminently dying. On oxygen via NC. Creatinine 3.06. Albumin 2.5. WBC 17.9. Met with and daughter. Also present Anais Preston RN hospice admission nurse and resident team. Family/Friend Interactions: Met with and daughter who have decided to transition to comfort measures with transfer to hospice care center in [place]. Prognosis hours to days. Advance Directives Living Will: Never completed Health Care Surrogate: Never completed Durable Power of Physician Neonatology: Never completed Health Care Surrogate Name and Number: Health care proxy, : Jovita Ravi : [phone] Significant change in goals:: NO CODE. Transition to comfort with hospice support. Objective Vital Signs: Vital Signs 09/06/18 11:00 09/06/18 12:00 09/06/18 13:00 Temperature Pulse Rate 116 H 119 H 122 H Respiratory Rate 23 17 25 H Blood Pressure 115/76 108/60 112/65 Pulse Oximetry 97 98 98 09/06/18 14:00 09/06/18 15:00 09/06/18 16:00 Temperature Pulse Rate 121 H 129 H 118 H Respiratory Rate 27 H 23 34 H Blood Pressure 122/71 116/72 97/62 L Pulse Oximetry 92 L 94 L 97 09/06/18 17:00 09/06/18 18:00 09/06/18 18:01 Temperature Pulse Rate 126 H 126 H 124 H Respiratory Rate 29 H 24 21 Blood Pressure 89/66 L 114/63 Pulse Oximetry 95 95 96 09/06/18 19:00 09/06/18 19:45 09/06/18 20:00 Temperature 97.8 F Pulse Rate 122 H 123 H Respiratory Rate 22 15 Blood Pressure 93/66 L 99/64 L Pulse Oximetry 97 96 96 09/06/18 20:15 09/06/18 20:30 09/06/18 20:46 Temperature Pulse Rate 125 H 119 H 127 H Respiratory Rate 29 H 28 H 24 Blood Pressure 104/69 93/55 L 110/59 L Pulse Oximetry 94 L 95 98 09/06/18 21:00 09/06/18 21:15 09/06/18 21:30 Temperature Pulse Rate 118 H 126 H 125 H Respiratory Rate 13 15 25 H Blood Pressure 95/53 L 94/67 L 106/64 Pulse Oximetry 96 97 97 09/06/18 21:45 09/06/18 22:00 09/06/18 22:15 Temperature Pulse Rate 123 H 123 H 120 H Respiratory Rate 24 25 H 20 Blood Pressure 91/61 L 112/67 112/55 L Pulse Oximetry 95 96 97 09/06/18 22:30 09/06/18 22:45 09/06/18 23:00 Temperature Pulse Rate 123 H 125 H 124 H Respiratory Rate 22 22 23 Blood Pressure 110/59 L 98/59 L 105/51 L Pulse Oximetry 95 96 94 L 09/06/18 23:15 09/06/18 23:30 09/06/18 23:46 Temperature Pulse Rate 128 H 130 H 123 H Respiratory Rate 18 20 21 Blood Pressure 101/58 L 105/69 111/94 H Pulse Oximetry 95 91 L 95 09/07/18 00:00 09/07/18 00:01 09/07/18 00:15 Temperature 98.6 F Pulse Rate 122 H 125 H 121 H Respiratory Rate 24 29 H 24 Blood Pressure 114/66 107/45 L Pulse Oximetry 96 95 96 09/07/18 00:30 09/07/18 00:45 09/07/18 01:00 Temperature Pulse Rate 114 H 111 H 115 H Respiratory Rate 28 H 24 25 H Blood Pressure 94/54 L 100/73 96/75 L Pulse Oximetry 93 L 95 96 09/07/18 01:30 09/07/18 01:45 09/07/18 02:00 Temperature Pulse Rate 111 H 115 H 115 H Respiratory Rate 25 H 27 H 24 Blood Pressure 104/73 116/64 134/57 L Pulse Oximetry 94 L 97 09/07/18 02:15 09/07/18 02:30 09/07/18 02:45 Temperature Pulse Rate 119 H 127 H 118 H Respiratory Rate 24 24 23 Blood Pressure 124/62 112/66 106/60 Pulse Oximetry 93 L 92 L 09/07/18 03:00 09/07/18 03:15 09/07/18 03:30 Temperature Pulse Rate 128 H 122 H 123 H Respiratory Rate 25 H 25 H 24 Blood Pressure 124/72 111/66 125/62 Pulse Oximetry 91 L 92 L 93 L 09/07/18 03:45 09/07/18 04:00 09/07/18 04:15 Temperature 97.8 F Pulse Rate 119 H 123 H 125 H Respiratory Rate 24 22 21 Blood Pressure 110/71 115/71 101/74 Pulse Oximetry 93 L 93 L 93 L 09/07/18 04:30 09/07/18 04:45 09/07/18 05:00 Temperature Pulse Rate 120 H 121 H 116 H Respiratory Rate 24 18 22 Blood Pressure 118/79 99/72 L 98/76 L Pulse Oximetry 93 L 93 L 94 L 09/07/18 05:16 09/07/18 05:30 09/07/18 05:45 Temperature Pulse Rate 120 H 121 H 125 H Respiratory Rate 30 H 25 H 26 H Blood Pressure 112/59 L 104/56 L 108/72 Pulse Oximetry 93 L 91 L 92 L 09/07/18 06:00 09/07/18 06:01 09/07/18 06:15 Temperature Pulse Rate 113 H 127 H 116 H Respiratory Rate 27 H 26 H 25 H Blood Pressure 109/86 120/72 Pulse Oximetry 92 L 91 L 92 L 09/07/18 06:30 09/07/18 06:45 09/07/18 07:00 Temperature Pulse Rate 127 H 125 H 115 H Respiratory Rate 23 26 H 25 H Blood Pressure 121/63 112/64 116/64 Pulse Oximetry 92 L 93 L 94 L 09/07/18 07:16 09/07/18 07:30 09/07/18 07:45 Temperature Pulse Rate 121 H 117 H 121 H Respiratory Rate 28 H 24 23 Blood Pressure 116/66 128/58 L 116/70 Pulse Oximetry 92 L 91 L 94 L 09/07/18 08:00 09/07/18 08:15 09/07/18 08:30 Temperature 98.1 F Pulse Rate 124 H 125 H 133 H Respiratory Rate 25 H 27 H 25 H Blood Pressure 101/59 L 109/69 106/67 Pulse Oximetry 92 L 92 L 92 L 09/07/18 08:45 09/07/18 09:00 09/07/18 09:01 Temperature Pulse Rate 122 H 128 H 131 H Respiratory Rate 27 H 26 H 18 Blood Pressure 105/61 104/51 L Pulse Oximetry 92 L 90 L 91 L 09/07/18 09:15 09/07/18 09:30 09/07/18 09:45 Temperature Pulse Rate 126 H 134 H 130 H Respiratory Rate 31 H 26 H 24 Blood Pressure 102/67 118/66 90/65 L Pulse Oximetry 93 L 97 93 L 09/07/18 10:00 09/07/18 10:15 Temperature Pulse Rate 136 H 135 H Respiratory Rate 24 25 H Blood Pressure 93/66 L 100/72 Pulse Oximetry 93 L 93 L Intake & Output 09/06/18 09/07/18 09/07/18 18:59 06:59 18:59 Intake Total 466 / 466 1482 / 1482 Output Total 1700 / 1700 800 / 800 Balance -1234 / -1234 682 / 682 Weight 74.5 kg Intake: IV 100 / 100 600 / 600 Cordarone Inj 450 MG In D5W Inj 250 / 250 241 ML @ 1 MG/MIN 33.33 mls/hr IV.CONT TITRATE PRN Rx#: [id number] Azithromycin Inj 500 MG In NS 250 / 250 Inj 250 ML @ 250 mls/hr IV.SIG Q24H ANNITA Rx#:[id number] Rocephin Inj 2,000 MG In NS Inj 100 / 100 100 / 100 100 ML @ 200 mls/hr IV.SIG Q24H ANNITA Rx#:[id number] Tube Feeding / 66 282 / 282 Water Bolus Amount 300 / 300 600 / 600 Output: Urine Amount (Catheter) 1700 / 1700 800 / 800 Indwelling Urethral Catheter 1700 / 1700 800 / 800 Other: Date of Last Bowel Movement 08/29/18 08/29/18 # Bowel Movements 0 # Incontinent Bowel Movements 0 Physical Exam: CONSTITUTIONAL/GENERAL: This is a critically ill pt, in no apparent distress. TUBES/LINES/DRAINS: NC oxygen, right Sub CL, AICD, PIV left, Esc[place] (bloody scant urine). Hands cold to touch. SKIN: Jaundice. Ecchymoses on upper extremities. Skin temperature appropriate. Not diaphoretic. EYES: opens eyes. CARDIOVASCULAR: A. Fib on monitor, tachycardic. RESPIRATORY/CHEST: scattered coarse breath sounds bilaterally. GASTROINTESTINAL: Abdomen firm, more distended. Bowel sounds hypoactive. GENITOURINARY: Without palpable bladder distension. Escamilla catheter in place. MUSCULOSKELETAL: Extremities with edema. No mottling or clubbing. NEUROLOGICAL: Awakens, confused. Speech is difficult to understand. PSYCHIATRIC: arousable, confused. Diagnostic Tests Laboratory: Laboratory Results - last 72 hr 09/04/18 09/04/18 09/04/18 11:56 15:55 15:55 WBC 8.8 RBC 3.18 L Hgb 9.9 L Hct 29.1 L MCV 91.4 MCH 31.1 MCHC 34.0 RDW 15.0 Plt Count 169 MPV 8.7 Prelim Diff (Auto) Neut % (Auto) Lymph % (Auto) [place] % (Auto) Eos % (Auto) Baso % (Auto) Neut # (Auto) Lymph # (Auto) [place] # (Auto) Eos # (Auto) Baso # (Auto) WBC Differential Diff Scan Differential Comment Platelet Estimate Platelet Morphology Ovalocytes PT 33.5 H INR 3.3 APTT 53.2 H Puncture Site Patient Temperature O2 Saturation ABG pH ABG pCO2 ABG pO2 ABG HCO3 ABG O2 Content ABG Base Excess ABG Methemoglobin Parveen Test Hemoglobin Carboxyhemoglobin O2 Delivery Device Liter Flow Critical Value Sodium Potassium Chloride Carbon Dioxide Anion Gap BUN Creatinine Estimated GFR POC Glucose 170 H Random Glucose Calcium Phosphorus Magnesium Total Bilirubin AST ALT Alkaline Phosphatase Ammonia Total Protein Albumin Prealbumin 09/04/18 09/04/18 09/05/18 17:42 18:45 00:23 WBC RBC Hgb Hct MCV MCH MCHC RDW Plt Count MPV Prelim Diff (Auto) Neut % (Auto) Lymph % (Auto) [place] % (Auto) Eos % (Auto) Baso % (Auto) Neut # (Auto) Lymph # (Auto) [place] # (Auto) Eos # (Auto) Baso # (Auto) WBC Differential Diff Scan Differential Comment Platelet Estimate Platelet Morphology Ovalocytes PT INR APTT Puncture Site Right radial Patient Temperature 98.6 O2 Saturation 93 ABG pH 7.48 H ABG pCO2 34 L ABG pO2 76 ABG HCO3 25 ABG O2 Content 12.9 ABG Base Excess 1.5 ABG Methemoglobin 1.4 Parveen Test Present Hemoglobin 9.8 L Carboxyhemoglobin 1.6 O2 Delivery Device Nasal cannula Liter Flow 4.00 Critical Value No Sodium Potassium Chloride Carbon Dioxide Anion Gap BUN Creatinine Estimated GFR POC Glucose 162 H 127 H Random Glucose Calcium Phosphorus Magnesium Total Bilirubin AST ALT Alkaline Phosphatase Ammonia Total Protein Albumin Prealbumin 09/05/18 09/05/18 09/05/18 04:35 04:35 04:35 WBC 13.5 H D RBC 3.60 L Hgb 11.0 L Hct 33.4 L MCV 92.7 MCH 30.6 MCHC 33.0 RDW 15.2 Plt Count 200 MPV 8.5 Prelim Diff (Auto) Slide review pending Neut % (Auto) 90.0 H Lymph % (Auto) 2.8 L [place] % (Auto) 7.1 Eos % (Auto) 0.0 Baso % (Auto) 0.1 Neut # (Auto) 12.1 H Lymph # (Auto) 0.4 L [place] # (Auto) 1.0 H Eos # (Auto) 0.0 Baso # (Auto) 0.0 WBC Differential . Diff Scan Auto diff confirmed Differential Comment . Platelet Estimate Normal Platelet Morphology Normal Ovalocytes 1+ H PT 29.8 H INR 3.0 APTT Puncture Site Patient Temperature O2 Saturation ABG pH ABG pCO2 ABG pO2 ABG HCO3 ABG O2 Content ABG Base Excess ABG Methemoglobin Parveen Test Hemoglobin Carboxyhemoglobin O2 Delivery Device Liter Flow Critical Value Sodium 143 Potassium 3.2 L Chloride 102 Carbon Dioxide 29.8 Anion Gap 11 BUN 78 H Creatinine 3.36 H Estimated GFR 18 L POC Glucose Random Glucose 142 H Calcium 8.1 L Phosphorus Magnesium Total Bilirubin 9.4 H AST 300 H ALT 1793 H Alkaline Phosphatase 83 Ammonia Total Protein 5.4 L Albumin 2.7 L Prealbumin 09/05/18 09/05/18 09/06/18 08:09 23:47 04:15 WBC 14.9 H RBC 3.75 L Hgb 11.5 L Hct 35.4 L MCV 94.6 MCH 30.6 MCHC 32.3 RDW 15.5 Plt Count 185 MPV 9.2 Prelim Diff (Auto) Neut % (Auto) Lymph % (Auto) [place] % (Auto) Eos % (Auto) Baso % (Auto) Neut # (Auto) Lymph # (Auto) [place] # (Auto) Eos # (Auto) Baso # (Auto) WBC Differential Diff Scan Differential Comment Platelet Estimate Platelet Morphology Ovalocytes PT INR APTT Puncture Site Patient Temperature O2 Saturation ABG pH ABG pCO2 ABG pO2 ABG HCO3 ABG O2 Content ABG Base Excess ABG Methemoglobin Parveen Test Hemoglobin Carboxyhemoglobin O2 Delivery Device Liter Flow Critical Value Sodium Potassium Chloride Carbon Dioxide Anion Gap BUN Creatinine Estimated GFR POC Glucose 185 H Random Glucose Calcium Phosphorus Magnesium Total Bilirubin AST ALT Alkaline Phosphatase Ammonia Less than 10 L Total Protein Albumin Prealbumin 09/06/18 09/06/18 09/06/18 04:15 04:15 04:27 WBC RBC Hgb Hct MCV MCH MCHC RDW Plt Count MPV Prelim Diff (Auto) Neut % (Auto) Lymph % (Auto) [place] % (Auto) Eos % (Auto) Baso % (Auto) Neut # (Auto) Lymph # (Auto) [place] # (Auto) Eos # (Auto) Baso # (Auto) WBC Differential Diff Scan Differential Comment Platelet Estimate Platelet Morphology Ovalocytes PT 20.7 H INR 2.0 APTT Puncture Site Patient Temperature O2 Saturation ABG pH ABG pCO2 ABG pO2 ABG HCO3 ABG O2 Content ABG Base Excess ABG Methemoglobin Parveen Test Hemoglobin Carboxyhemoglobin O2 Delivery Device Liter Flow Critical Value Sodium 148 H Potassium 3.0 L Chloride 107 Carbon Dioxide 30.0 Anion Gap 11 BUN 86 H Creatinine 3.18 H Estimated GFR 19 L POC Glucose Random Glucose 158 H Calcium 8.5 Phosphorus 3.4 Magnesium 2.5 Total Bilirubin 11.6 H AST 171 H ALT 1245 H Alkaline Phosphatase 87 Ammonia Less than 10 L Total Protein 5.5 L Albumin 2.7 L Prealbumin 7 L 09/06/18 09/06/18 09/06/18 06:55 11:37 15:33 WBC RBC Hgb Hct MCV MCH MCHC RDW Plt Count MPV Prelim Diff (Auto) Neut % (Auto) Lymph % (Auto) [place] % (Auto) Eos % (Auto) Baso % (Auto) Neut # (Auto) Lymph # (Auto) [place] # (Auto) Eos # (Auto) Baso # (Auto) WBC Differential Diff Scan Differential Comment Platelet Estimate Platelet Morphology Ovalocytes PT 19.6 H INR 1.9 APTT Puncture Site Patient Temperature O2 Saturation ABG pH ABG pCO2 ABG pO2 ABG HCO3 ABG O2 Content ABG Base Excess ABG Methemoglobin Parveen Test Hemoglobin Carboxyhemoglobin O2 Delivery Device Liter Flow Critical Value Sodium Potassium Chloride Carbon Dioxide Anion Gap BUN Creatinine Estimated GFR POC Glucose 171 H 157 H Random Glucose Calcium Phosphorus Magnesium Total Bilirubin AST ALT Alkaline Phosphatase Ammonia Total Protein Albumin Prealbumin 09/06/18 09/06/18 09/07/18 17:55 23:39 04:50 WBC 17.9 H RBC 4.12 L Hgb 12.6 L Hct 39.4 MCV 95.5 MCH 30.6 MCHC 32.1 RDW 16.1 Plt Count 160 MPV 10.0 Prelim Diff (Auto) Neut % (Auto) Lymph % (Auto) [place] % (Auto) Eos % (Auto) Baso % (Auto) Neut # (Auto) Lymph # (Auto) [place] # (Auto) Eos # (Auto) Baso # (Auto) WBC Differential Diff Scan Differential Comment Platelet Estimate Platelet Morphology Ovalocytes PT INR APTT Puncture Site Patient Temperature O2 Saturation ABG pH ABG pCO2 ABG pO2 ABG HCO3 ABG O2 Content ABG Base Excess ABG Methemoglobin Parveen Test Hemoglobin Carboxyhemoglobin O2 Delivery Device Liter Flow Critical Value Sodium Potassium Chloride Carbon Dioxide Anion Gap BUN Creatinine Estimated GFR POC Glucose 203 H 146 H Random Glucose Calcium Phosphorus Magnesium Total Bilirubin AST ALT Alkaline Phosphatase Ammonia Total Protein Albumin Prealbumin 09/07/18 09/07/18 09/07/18 04:50 04:50 04:50 WBC RBC Hgb Hct MCV MCH MCHC RDW Plt Count MPV Prelim Diff (Auto) Neut % (Auto) Lymph % (Auto) [place] % (Auto) Eos % (Auto) Baso % (Auto) Neut # (Auto) Lymph # (Auto) [place] # (Auto) Eos # (Auto) Baso # (Auto) WBC Differential Diff Scan Differential Comment Platelet Estimate Platelet Morphology Ovalocytes PT 19.4 H INR 1.9 APTT Puncture Site Patient Temperature O2 Saturation ABG pH ABG pCO2 ABG pO2 ABG HCO3 ABG O2 Content ABG Base Excess ABG Methemoglobin Parveen Test Hemoglobin Carboxyhemoglobin O2 Delivery Device Liter Flow Critical Value Sodium 149 H Potassium 2.6 L* Chloride 108 H Carbon Dioxide 28.9 Anion Gap 12 BUN 92 H Creatinine 3.06 H Estimated GFR 20 L POC Glucose Random Glucose 211 H Calcium 8.3 L Phosphorus 2.9 Magnesium 2.3 Total Bilirubin 14.2 H AST 109 H ALT 862 H Alkaline Phosphatase 116 Ammonia Less than 10 L Total Protein 5.6 L Albumin 2.5 L Prealbumin Result Diagrams: 09/07/18 04:50 09/07/18 04:50 Microbiology: Microbiology 09/02/18 21:03 Aerobic Blood Culture - Preliminary Blood - Peripheral No growth in 4 days Anaerobic Blood Culture - Preliminary No growth in 4 days 09/02/18 21:08 Aerobic Blood Culture - Preliminary Blood - Peripheral No growth in 4 days Anaerobic Blood Culture - Preliminary No growth in 4 days 09/01/18 00:05 Aerobic Blood Culture - Final Blood - Peripheral No growth in 5 days Anaerobic Blood Culture - Final No growth in 5 days 08/31/18 22:20 Aerobic Blood Culture - Final Blood - Peripheral Viridans streptococcus grp Anaerobic Blood Culture - Final No growth in 5 days Imaging: Abdomen/Pelvis CT 09/01/18 00:00 CONCLUSION: 1. Trace ascites, nonspecific. Also mild body wall edema. No organized or drainable fluid. 2. Diverticulosis of the sigmoid colon. No diverticulitis or other acute inflammatory changes. 3. Atherosclerosis of the aorta. Chest CT 09/01/18 00:00 CONCLUSION: 1. Bilateral pneumonia, especially right upper lobe. 2. Small bilateral pleural effusions; dependent/compressive atelectasis of both lower lobes. 3. Panchamber enlargement of the heart. Head CT 09/04/18 00:00 CONCLUSION: 1. Negative noncontrast head CT. 2. Suboptimal study secondary to motion artifact. . Liver Ultrasound 09/04/18 00:00 CONCLUSION: 1. Small nodular liver with trace ascites 2. No focal mass. Chest X-Ray 09/05/18 05:00 CONCLUSION: Interval extubation. Slight interval worsening in aeration. Abdomen X-Ray 09/05/18 12:26 CONCLUSION: Feeding tube is in place with the tip in the distal stomach. Procedures: * 09/03/18 - medically extubated. * Cardioversion * central line placement * Intubated Assessment and Plan - Symptom Scale (1) Pain 0-10 Scale: Unable to quantify (2) Dyspnea 0-10 Scale: Unable to quantify (3) Confusion 0-10 Scale: Unable to quantify (4) Constipation 0-10 Scale: Unable to quantify Comment: LBM recorded 08/30/18, will add dulcolax Pertinent Non-Medical Issues: Psychosocial: . Has children and grandchildren he enjoys spending time with. Retired. Was in the . From [place], moved to [place] 6 years ago. Has 1 daughter and 1 son, and step-children. 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 Friends and family continue to pray for him. Legal:Patient is not capacitated to make his own health care decisions, uncertain if he will regain capacity. No written advance directives. According to [place] statutes, health care proxy decision making falls to his spouse, Jovita Ravi. Ethical issues impacting care:None. Important Contacts: Health care proxy, : Jovita Ravi: [phone] Prognosis: Patient with A. Fib s/p cardioversion now back in A. Fib, EF 20%, AV vegetation , renal and liver dysfunction, worsening. He appears to be declining. Overall prognosis appears poor. Code Status: No Code DNR Plan: * Patient is not capacitated to make his own health care decisions, uncertain if he will regain capacity. No written advance directives. According to [place] statutes, health care proxy decision making falls to his spouse, Opal Ravi. * NO CODE * Goals remain aggressive including FULL CODE/ reintubation if needed. Family will need to hear prognosis from other medical providers, especially if his condition continues to worsen. * Dulcolax supp now and daily PRN. Pt unable to take PO meds. * Anticipate arrival of son on 09/05/18. Daughter, Winnie is here from [place]. * SYMPTOMS: pain and dyspnea: sedated on mech vent, no obvious signs of discomfort or SOB. No new medication recommendations at this time. * Palliative care will continue to follow throughout hsopital course to assist with symptom management and clarification of medical treatment goals. Attestation Attestation: To help prompt me to consider important information that might be impacting today's encounter and assessment, information from prior notes written by myself or my colleagues may have been "brought forward" into today's note. My signature on this note, however, is an attestation that I personally performed the exam, history, and/or decision-making noted today, and, unless otherwise indicated, the interactions with patient, family, and staff as well as the review of records all occurred today. I also attest that the listed assessment and stated plan reflect my best clinical judgment today based on the combination of historical information, prior notes, and today's exam/ interactions. When time spent is documented, it refers only to time spent today by the signer, or if indicated, combined time spent today by collaborating physician/nurse practitioner.
--- NOTE | 2018-09-07 11:04 | P.PNFP ---
Subjective Interval history: Patient resting in bed in restraints. Does not appear to be in any acute distress or pain. According to nursing staff, has been having difficulty breathing with productive cough. Nursing staff wanted clarification on code status. Was told discussion was started with family and hospice. No acute events overnight. <Kayley Cevallos C - 09/07/18 12:15> Results - Labs Result diagrams: 09/07/18 04:50 09/07/18 04:50 <Tiago Le L - 09/07/18 17:01> Abnormal lab results 09/06/18 09/06/18 09/07/18 Range/Units 17:55 23:39 04:50 WBC 17.9 H (4.0-11.0) th/mm3 RBC 4.12 L (4.50-5.90) mil/mm3 Hgb 12.6 L (13.0-17.0) gm/dL PT (9.8-11.6) sec Sodium (136-145) meq/L Potassium (3.5-5.1) meq/L Chloride (98-107) meq/L BUN (7-18) mg/dL Creatinine (0.60-1.30) mg/dL Estimated GFR (>89) mL/min POC Glucose 203 H 146 H (68-110) mg/dl Random Glucose (74-106) mg/dL Calcium (8.5-10.1) mg/dL Total Bilirubin (0.2-1.0) mg/dL AST (15-37) U/L ALT (12-78) U/L Ammonia (11-32) mcmol/L Total Protein (6.4-8.2) g/dL Albumin (3.4-5.0) g/dL 09/07/18 09/07/18 09/07/18 Range/Units 04:50 04:50 04:50 WBC (4.0-11.0) th/mm3 RBC (4.50-5.90) mil/mm3 Hgb (13.0-17.0) gm/dL PT 19.4 H (9.8-11.6) sec Sodium 149 H (136-145) meq/L Potassium 2.6 L* (3.5-5.1) meq/L Chloride 108 H (98-107) meq/L BUN 92 H (7-18) mg/dL Creatinine 3.06 H (0.60-1.30) mg/dL Estimated GFR 20 L (>89) mL/min POC Glucose (68-110) mg/dl Random Glucose 211 H (74-106) mg/dL Calcium 8.3 L (8.5-10.1) mg/dL Total Bilirubin 14.2 H (0.2-1.0) mg/dL AST 109 H (15-37) U/L ALT 862 H (12-78) U/L Ammonia Less than 10 L (11-32) mcmol/L Total Protein 5.6 L (6.4-8.2) g/dL Albumin 2.5 L (3.4-5.0) g/dL 09/07/18 Range/Units 12:24 WBC (4.0-11.0) th/mm3 RBC (4.50-5.90) mil/mm3 Hgb (13.0-17.0) gm/dL PT (9.8-11.6) sec Sodium (136-145) meq/L Potassium (3.5-5.1) meq/L Chloride (98-107) meq/L BUN (7-18) mg/dL Creatinine (0.60-1.30) mg/dL Estimated GFR (>89) mL/min POC Glucose 155 H (68-110) mg/dl Random Glucose (74-106) mg/dL Calcium (8.5-10.1) mg/dL Total Bilirubin (0.2-1.0) mg/dL AST (15-37) U/L ALT (12-78) U/L Ammonia (11-32) mcmol/L Total Protein (6.4-8.2) g/dL Albumin (3.4-5.0) g/dL Short CBC 09/07/18 Range/Units 04:50 WBC 17.9 H (4.0-11.0) th/mm3 Hgb 12.6 L (13.0-17.0) gm/dL Hct 39.4 (39.0-51.0) % Plt Count 160 (150-450) th/mm3 BMP 09/07/18 04:50 Sodium 149 H Potassium 2.6 L* Chloride 108 H Carbon Dioxide 28.9 BUN 92 H Creatinine 3.06 H Calcium 8.3 L Liver Function 09/07/18 Range/Units 04:50 Total Bilirubin 14.2 H (0.2-1.0) mg/dL AST 109 H (15-37) U/L ALT 862 H (12-78) U/L Alkaline Phosphatase 116 (45-117) U/L Albumin 2.5 L (3.4-5.0) g/dL <Young,Tiago L - 09/07/18 17:01> Abnormal lab results 09/06/18 09/06/18 09/06/18 Range/Units 11:37 15:33 17:55 WBC (4.0-11.0) th/mm3 RBC (4.50-5.90) mil/mm3 Hgb (13.0-17.0) gm/dL PT 19.6 H (9.8-11.6) sec Sodium (136-145) meq/L Potassium (3.5-5.1) meq/L Chloride (98-107) meq/L BUN (7-18) mg/dL Creatinine (0.60-1.30) mg/dL Estimated GFR (>89) mL/min POC Glucose 157 H 203 H (68-110) mg/dl Random Glucose (74-106) mg/dL Calcium (8.5-10.1) mg/dL Total Bilirubin (0.2-1.0) mg/dL AST (15-37) U/L ALT (12-78) U/L Ammonia (11-32) mcmol/L Total Protein (6.4-8.2) g/dL Albumin (3.4-5.0) g/dL 09/06/18 09/07/18 09/07/18 Range/Units 23:39 04:50 04:50 WBC 17.9 H (4.0-11.0) th/mm3 RBC 4.12 L (4.50-5.90) mil/mm3 Hgb 12.6 L (13.0-17.0) gm/dL PT 19.4 H (9.8-11.6) sec Sodium (136-145) meq/L Potassium (3.5-5.1) meq/L Chloride (98-107) meq/L BUN (7-18) mg/dL Creatinine (0.60-1.30) mg/dL Estimated GFR (>89) mL/min POC Glucose 146 H (68-110) mg/dl Random Glucose (74-106) mg/dL Calcium (8.5-10.1) mg/dL Total Bilirubin (0.2-1.0) mg/dL AST (15-37) U/L ALT (12-78) U/L Ammonia (11-32) mcmol/L Total Protein (6.4-8.2) g/dL Albumin (3.4-5.0) g/dL 09/07/18 09/07/18 Range/Units 04:50 04:50 WBC (4.0-11.0) th/mm3 RBC (4.50-5.90) mil/mm3 Hgb (13.0-17.0) gm/dL PT (9.8-11.6) sec Sodium 149 H (136-145) meq/L Potassium 2.6 L* (3.5-5.1) meq/L Chloride 108 H (98-107) meq/L BUN 92 H (7-18) mg/dL Creatinine 3.06 H (0.60-1.30) mg/dL Estimated GFR 20 L (>89) mL/min POC Glucose (68-110) mg/dl Random Glucose 211 H (74-106) mg/dL Calcium 8.3 L (8.5-10.1) mg/dL Total Bilirubin 14.2 H (0.2-1.0) mg/dL AST 109 H (15-37) U/L ALT 862 H (12-78) U/L Ammonia Less than 10 L (11-32) mcmol/L Total Protein 5.6 L (6.4-8.2) g/dL Albumin 2.5 L (3.4-5.0) g/dL Short CBC 09/07/18 Range/Units 04:50 WBC 17.9 H (4.0-11.0) th/mm3 Hgb 12.6 L (13.0-17.0) gm/dL Hct 39.4 (39.0-51.0) % Plt Count 160 (150-450) th/mm3 BMP 09/07/18 04:50 Sodium 149 H Potassium 2.6 L* Chloride 108 H Carbon Dioxide 28.9 BUN 92 H Creatinine 3.06 H Calcium 8.3 L Liver Function 09/07/18 Range/Units 04:50 Total Bilirubin 14.2 H (0.2-1.0) mg/dL AST 109 H (15-37) U/L ALT 862 H (12-78) U/L Alkaline Phosphatase 116 (45-117) U/L Albumin 2.5 L (3.4-5.0) g/dL <Kayley Cevallos C - 09/07/18 11:04> Physical Exam Vital signs: Vital Signs 09/06/18 18:00 09/06/18 18:01 09/06/18 19:00 Temperature Pulse Rate 126 H 124 H 122 H Respiratory Rate 24 21 22 Blood Pressure 114/63 93/66 L Pulse Oximetry 95 96 97 09/06/18 19:45 09/06/18 20:00 09/06/18 20:15 Temperature 97.8 F Pulse Rate 123 H 125 H Respiratory Rate 15 29 H Blood Pressure 99/64 L 104/69 Pulse Oximetry 96 96 94 L 09/06/18 20:30 09/06/18 20:46 09/06/18 21:00 Temperature Pulse Rate 119 H 127 H 118 H Respiratory Rate 28 H 24 13 Blood Pressure 93/55 L 110/59 L 95/53 L Pulse Oximetry 95 98 96 09/06/18 21:15 09/06/18 21:30 09/06/18 21:45 Temperature Pulse Rate 126 H 125 H 123 H Respiratory Rate 15 25 H 24 Blood Pressure 94/67 L 106/64 91/61 L Pulse Oximetry 97 97 95 09/06/18 22:00 09/06/18 22:15 09/06/18 22:30 Temperature Pulse Rate 123 H 120 H 123 H Respiratory Rate 25 H 20 22 Blood Pressure 112/67 112/55 L 110/59 L Pulse Oximetry 96 97 95 09/06/18 22:45 09/06/18 23:00 09/06/18 23:15 Temperature Pulse Rate 125 H 124 H 128 H Respiratory Rate 22 23 18 Blood Pressure 98/59 L 105/51 L 101/58 L Pulse Oximetry 96 94 L 95 09/06/18 23:30 09/06/18 23:46 09/07/18 00:00 Temperature 98.6 F Pulse Rate 130 H 123 H 122 H Respiratory Rate 20 21 24 Blood Pressure 105/69 111/94 H Pulse Oximetry 91 L 95 96 09/07/18 00:01 09/07/18 00:15 09/07/18 00:30 Temperature Pulse Rate 125 H 121 H 114 H Respiratory Rate 29 H 24 28 H Blood Pressure 114/66 107/45 L 94/54 L Pulse Oximetry 95 96 93 L 09/07/18 00:45 09/07/18 01:00 09/07/18 01:30 Temperature Pulse Rate 111 H 115 H 111 H Respiratory Rate 24 25 H 25 H Blood Pressure 100/73 96/75 L 104/73 Pulse Oximetry 95 96 94 L 09/07/18 01:45 09/07/18 02:00 09/07/18 02:15 Temperature Pulse Rate 115 H 115 H 119 H Respiratory Rate 27 H 24 24 Blood Pressure 116/64 134/57 L 124/62 Pulse Oximetry 97 09/07/18 02:30 09/07/18 02:45 09/07/18 03:00 Temperature Pulse Rate 127 H 118 H 128 H Respiratory Rate 24 23 25 H Blood Pressure 112/66 106/60 124/72 Pulse Oximetry 93 L 92 L 91 L 09/07/18 03:15 09/07/18 03:30 09/07/18 03:45 Temperature Pulse Rate 122 H 123 H 119 H Respiratory Rate 25 H 24 24 Blood Pressure 111/66 125/62 110/71 Pulse Oximetry 92 L 93 L 93 L 09/07/18 04:00 09/07/18 04:15 09/07/18 04:30 Temperature 97.8 F Pulse Rate 123 H 125 H 120 H Respiratory Rate 22 21 24 Blood Pressure 115/71 101/74 118/79 Pulse Oximetry 93 L 93 L 93 L 09/07/18 04:45 09/07/18 05:00 09/07/18 05:16 Temperature Pulse Rate 121 H 116 H 120 H Respiratory Rate 18 22 30 H Blood Pressure 99/72 L 98/76 L 112/59 L Pulse Oximetry 93 L 94 L 93 L 09/07/18 05:30 09/07/18 05:45 09/07/18 06:00 Temperature Pulse Rate 121 H 125 H 113 H Respiratory Rate 25 H 26 H 27 H Blood Pressure 104/56 L 108/72 Pulse Oximetry 91 L 92 L 92 L 09/07/18 06:01 09/07/18 06:15 09/07/18 06:30 Temperature Pulse Rate 127 H 116 H 127 H Respiratory Rate 26 H 25 H 23 Blood Pressure 109/86 120/72 121/63 Pulse Oximetry 91 L 92 L 92 L 09/07/18 06:45 09/07/18 07:00 09/07/18 07:16 Temperature Pulse Rate 125 H 115 H 121 H Respiratory Rate 26 H 25 H 28 H Blood Pressure 112/64 116/64 116/66 Pulse Oximetry 93 L 94 L 92 L 09/07/18 07:30 09/07/18 07:45 09/07/18 08:00 Temperature 98.1 F Pulse Rate 117 H 121 H 135 H Respiratory Rate 24 23 25 H Blood Pressure 128/58 L 116/70 101/59 L Pulse Oximetry 91 L 94 L 92 L 09/07/18 08:15 09/07/18 08:30 09/07/18 08:45 Temperature Pulse Rate 125 H 133 H 122 H Respiratory Rate 27 H 25 H 27 H Blood Pressure 109/69 106/67 105/61 Pulse Oximetry 92 L 92 L 92 L 09/07/18 09:00 09/07/18 09:01 09/07/18 09:15 Temperature Pulse Rate 128 H 131 H 126 H Respiratory Rate 26 H 18 31 H Blood Pressure 104/51 L 102/67 Pulse Oximetry 90 L 91 L 93 L 09/07/18 09:30 09/07/18 09:45 09/07/18 10:00 Temperature Pulse Rate 134 H 130 H 135 H Respiratory Rate 26 H 24 24 Blood Pressure 118/66 90/65 L 93/66 L Pulse Oximetry 97 93 L 93 L 09/07/18 10:15 Temperature Pulse Rate 135 H Respiratory Rate 25 H Blood Pressure 100/72 Pulse Oximetry 93 L Intake & Output 09/06/18 09/07/18 09/07/18 18:59 06:59 18:59 Intake Total 466 / 466 1482 / 1482 Output Total 1700 / 1700 800 / 800 Balance -1234 / -1234 682 / 682 Weight 74.5 kg Intake: IV 100 / 100 600 / 600 Cordarone Inj 450 MG In D5W Inj 250 / 250 241 ML @ 1 MG/MIN 33.33 mls/hr IV.CONT TITRATE PRN Rx#: [id number] Azithromycin Inj 500 MG In NS 250 / 250 Inj 250 ML @ 250 mls/hr IV.SIG Q24H ANNITA Rx#:[id number] Rocephin Inj 2,000 MG In NS Inj 100 / 100 100 / 100 100 ML @ 200 mls/hr IV.SIG Q24H ANNITA Rx#:[id number] Tube Feeding 66 / 66 282 / 282 Water Bolus Amount 300 / 300 600 / 600 Output: Urine Amount (Catheter) 1700 / 1700 800 / 800 Indwelling Urethral Catheter 1700 / 1700 800 / 800 Other: Date of Last Bowel Movement 08/29/18 08/29/18 08/29/18 # Bowel Movements 0 # Incontinent Bowel Movements 0 <Tiago Le L - 09/07/18 17:01> Vital Signs 09/06/18 11:00 09/06/18 12:00 09/06/18 13:00 Temperature Pulse Rate 116 H 119 H 122 H Respiratory Rate 23 17 25 H Blood Pressure 115/76 108/60 112/65 Pulse Oximetry 97 98 98 09/06/18 14:00 09/06/18 15:00 09/06/18 16:00 Temperature Pulse Rate 121 H 129 H 118 H Respiratory Rate 27 H 23 34 H Blood Pressure 122/71 116/72 97/62 L Pulse Oximetry 92 L 94 L 97 09/06/18 17:00 09/06/18 18:00 09/06/18 18:01 Temperature Pulse Rate 126 H 126 H 124 H Respiratory Rate 29 H 24 21 Blood Pressure 89/66 L 114/63 Pulse Oximetry 95 95 96 09/06/18 19:00 09/06/18 19:45 09/06/18 20:00 Temperature 97.8 F Pulse Rate 122 H 123 H Respiratory Rate 22 15 Blood Pressure 93/66 L 99/64 L Pulse Oximetry 97 96 96 09/06/18 20:15 09/06/18 20:30 09/06/18 20:46 Temperature Pulse Rate 125 H 119 H 127 H Respiratory Rate 29 H 28 H 24 Blood Pressure 104/69 93/55 L 110/59 L Pulse Oximetry 94 L 95 98 09/06/18 21:00 09/06/18 21:15 09/06/18 21:30 Temperature Pulse Rate 118 H 126 H 125 H Respiratory Rate 13 15 25 H Blood Pressure 95/53 L 94/67 L 106/64 Pulse Oximetry 96 97 97 09/06/18 21:45 09/06/18 22:00 09/06/18 22:15 Temperature Pulse Rate 123 H 123 H 120 H Respiratory Rate 24 25 H 20 Blood Pressure 91/61 L 112/67 112/55 L Pulse Oximetry 95 96 97 09/06/18 22:30 09/06/18 22:45 09/06/18 23:00 Temperature Pulse Rate 123 H 125 H 124 H Respiratory Rate 22 22 23 Blood Pressure 110/59 L 98/59 L 105/51 L Pulse Oximetry 95 96 94 L 09/06/18 23:15 09/06/18 23:30 09/06/18 23:46 Temperature Pulse Rate 128 H 130 H 123 H Respiratory Rate 18 20 21 Blood Pressure 101/58 L 105/69 111/94 H Pulse Oximetry 95 91 L 95 09/07/18 00:00 09/07/18 00:01 09/07/18 00:15 Temperature 98.6 F Pulse Rate 122 H 125 H 121 H Respiratory Rate 24 29 H 24 Blood Pressure 114/66 107/45 L Pulse Oximetry 96 95 96 09/07/18 00:30 09/07/18 00:45 09/07/18 01:00 Temperature Pulse Rate 114 H 111 H 115 H Respiratory Rate 28 H 24 25 H Blood Pressure 94/54 L 100/73 96/75 L Pulse Oximetry 93 L 95 96 09/07/18 01:30 09/07/18 01:45 09/07/18 02:00 Temperature Pulse Rate 111 H 115 H 115 H Respiratory Rate 25 H 27 H 24 Blood Pressure 104/73 116/64 134/57 L Pulse Oximetry 94 L 97 09/07/18 02:15 09/07/18 02:30 09/07/18 02:45 Temperature Pulse Rate 119 H 127 H 118 H Respiratory Rate 24 24 23 Blood Pressure 124/62 112/66 106/60 Pulse Oximetry 93 L 92 L 09/07/18 03:00 09/07/18 03:15 09/07/18 03:30 Temperature Pulse Rate 128 H 122 H 123 H Respiratory Rate 25 H 25 H 24 Blood Pressure 124/72 111/66 125/62 Pulse Oximetry 91 L 92 L 93 L 09/07/18 03:45 09/07/18 04:00 09/07/18 04:15 Temperature 97.8 F Pulse Rate 119 H 123 H 125 H Respiratory Rate 24 22 21 Blood Pressure 110/71 115/71 101/74 Pulse Oximetry 93 L 93 L 93 L 09/07/18 04:30 09/07/18 04:45 09/07/18 05:00 Temperature Pulse Rate 120 H 121 H 116 H Respiratory Rate 24 18 22 Blood Pressure 118/79 99/72 L 98/76 L Pulse Oximetry 93 L 93 L 94 L 09/07/18 05:16 09/07/18 05:30 09/07/18 05:45 Temperature Pulse Rate 120 H 121 H 125 H Respiratory Rate 30 H 25 H 26 H Blood Pressure 112/59 L 104/56 L 108/72 Pulse Oximetry 93 L 91 L 92 L 09/07/18 06:00 09/07/18 06:01 09/07/18 06:15 Temperature Pulse Rate 113 H 127 H 116 H Respiratory Rate 27 H 26 H 25 H Blood Pressure 109/86 120/72 Pulse Oximetry 92 L 91 L 92 L 09/07/18 06:30 09/07/18 06:45 09/07/18 07:00 Temperature Pulse Rate 127 H 125 H 115 H Respiratory Rate 23 26 H 25 H Blood Pressure 121/63 112/64 116/64 Pulse Oximetry 92 L 93 L 94 L 09/07/18 07:16 09/07/18 07:30 09/07/18 07:45 Temperature Pulse Rate 121 H 117 H 121 H Respiratory Rate 28 H 24 23 Blood Pressure 116/66 128/58 L 116/70 Pulse Oximetry 92 L 91 L 94 L 09/07/18 08:00 09/07/18 08:15 09/07/18 08:30 Temperature 98.1 F Pulse Rate 124 H 125 H 133 H Respiratory Rate 25 H 27 H 25 H Blood Pressure 101/59 L 109/69 106/67 Pulse Oximetry 92 L 92 L 92 L 09/07/18 08:45 09/07/18 09:00 09/07/18 09:01 Temperature Pulse Rate 122 H 128 H 131 H Respiratory Rate 27 H 26 H 18 Blood Pressure 105/61 104/51 L Pulse Oximetry 92 L 90 L 91 L 09/07/18 09:15 09/07/18 09:30 09/07/18 09:45 Temperature Pulse Rate 126 H 134 H 130 H Respiratory Rate 31 H 26 H 24 Blood Pressure 102/67 118/66 90/65 L Pulse Oximetry 93 L 97 93 L 09/07/18 10:00 09/07/18 10:15 Temperature Pulse Rate 136 H 135 H Respiratory Rate 24 25 H Blood Pressure 93/66 L 100/72 Pulse Oximetry 93 L 93 L Intake & Output 09/06/18 09/07/18 09/07/18 18:59 06:59 18:59 Intake Total 466 / 466 1482 / 1482 Output Total 1700 / 1700 800 / 800 Balance -1234 / -1234 682 / 682 Weight 74.5 kg Intake: IV 100 / 100 600 / 600 Cordarone Inj 450 MG In D5W Inj 250 / 250 241 ML @ 1 MG/MIN 33.33 mls/hr IV.CONT TITRATE PRN Rx#: [id number] Azithromycin Inj 500 MG In NS 250 / 250 Inj 250 ML @ 250 mls/hr IV.SIG Q24H ANNITA Rx#:[id number] Rocephin Inj 2,000 MG In NS Inj 100 / 100 100 / 100 100 ML @ 200 mls/hr IV.SIG Q24H ANNITA Rx#:[id number] Tube Feeding 282 / 282 Water Bolus Amount 300 / 300 600 / 600 Output: Urine Amount (Catheter) 1700 / 1700 800 / 800 Indwelling Urethral Catheter 1700 / 1700 800 / 800 Other: Date of Last Bowel Movement 08/29/18 08/29/18 # Bowel Movements 0 # Incontinent Bowel Movements 0 <Kayley Cevallos - 09/07/18 11:04> Narrative: General: Elderly gentleman lying comfortably in bed on nasal cannula. Patient was difficult to arouse elicit answers from. Patient had dry crusted blood around inner lips and oral mucosa. Patient currently in soft restraint. Patient also has a nasogastric feeding tube in place. Eyes: Patient has significant scleral icterus Skin: Patient has jaundiced appearance to skin from head to his feet. Dressing with dried blood on right buttock. Not actively draining. Cardio: Irregularly irregular. 2+ pedal pulses. Patient has subclavian central line in place. Pulmonary: Patient has poor air movement. Rhonchi in all lung mcdowell from upper airway secretions. Coarse breath sounds and crackles breath sounds bilaterally GI: Distended, but did elicit pain to palpation. Patient had normal active bowel sounds. Extremities: No edema noted in lower extremities. Patient's arms continue to be edematous bilaterally, from elbow to fingertips. Neuro: Patient was minimally awake and alert but not verbally responsive. Patient was able to wiggle toes on command further commands were not followed. <Tima Cevallosdomingo Wong - 09/07/18 12:15> - Urinary Catheter Management Indwelling Urethral Catheter Cath placed during this visit: no <Tiago Le Felipa - 09/07/18 17:01> yes, but has since been removed by the nurse <MartKayley Wong - 09/07/18 12:15> Reason for continuing: Chronic Urinary Retention <Kayley Cevallos 09/07/18 11:04> Insertion date: 09/04/18 <Kayley Cevallos 09/07/18 11:04> Insertion time: 15:40 <Kayley Cevallos 09/07/18 11:04> Removal date: 09/04/18 <Kayley Cevallos 09/07/18 11:04> Removal time: 15:40 <Kayley Cevallos 09/07/18 11:04> Assessment and Plan - Assessment (1) Encephalopathy acute Code(s): G93.40 - Encephalopathy, unspecified Status: Acute (2) Streptococcus viridans infection Code(s): A49.1 - Streptococcal infection, unspecified site Status: Acute (3) Cardiogenic shock Code(s): R57.0 - Cardiogenic shock Status: Acute (4) Respiratory failure Code(s): J96.90 - Respiratory failure, unspecified, unspecified whether with hypoxia or hypercapnia Status: Acute (5) Shock liver Code(s): K72.00 - Acute and subacute hepatic failure without coma Status: Acute (6) Bilateral pneumonia Code(s): J18.9 - Pneumonia, unspecified organism Status: Acute (7) Renal failure, acute on chronic Code(s): N17.9 - Acute kidney failure, unspecified; N18.9 - Chronic kidney disease, unspecified Status: Acute (8) Atrial fibrillation with rapid ventricular response Code(s): I48.91 - Unspecified atrial fibrillation Status: Acute (9) Cardiomyopathy Code(s): I42.9 - Cardiomyopathy, unspecified Status: Chronic (10) V-tach Code(s): I47.2 - Ventricular tachycardia Status: Chronic (11) Hyperlipidemia Code(s): E78.5 - Hyperlipidemia, unspecified Status: Acute (12) Hypothyroidism Code(s): E03.9 - Hypothyroidism, unspecified Status: Chronic <Tiago Le - 09/07/18 17:01> (1) Encephalopathy acute Code(s): G93.40 - Encephalopathy, unspecified Status: Acute Plan: Patient continues to be confused and disoriented and minimally arousable. -CT of the head showed no acute bleed -Patient now on ceftriaxone and azithromycin -EEG was consistent with encephalopathic process (2) Streptococcus viridans infection Code(s): A49.1 - Streptococcal infection, unspecified site Status: Acute Plan: Blood cultures 08/31 positive for strep viridans. Repeat cultures no growth after 4 days. White count up to 17.9 today. Patient continues to be afebrile. Continue Rocephin Trend white count (3) Cardiogenic shock Code(s): R57.0 - Cardiogenic shock Status: Acute Plan: 83-year-old male with a history of A. fib , hypertension, hyperlipidemia, ICD presented to the ED with worsening shortness of breath. Originally admitted for A.fib with RVR. Patient transferred to the ICU on 08/31 for respiratory failure in the setting of cardiogenic shock. Currently intubated, mechanically ventilated. 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 -s/p electrical cardioversion 09/01, patient successfully converted to sinus rhythm. Patient had 7 beat run of V. tach that may have been the reason that the patient converted back into atrial fibrillation. Patient seems fluid overloaded today had a crackles on auscultation. -Echo on 09/03 showed an EF of 20%, severe mitral regurgitation, aortic regurgitation, question of vegetation on aortic valve leaflet. -Phenylephrine titrated off and levophed discontinued -Dobutamine discontinued, patient currently not on any inotrope or pressors -Per chief power dispatcher hold home PO amiodarone and metoprolol -Continue IV Amiodarone 0.5 mg/min -Follow up with cardiology recommendations (4) Respiratory failure Code(s): J96.90 - Respiratory failure, unspecified, unspecified whether with hypoxia or hypercapnia Status: Acute Plan: Patient currently extubated and stating 94% on 4 L nasal cannula. -Lactic acid trending down -Last ABG on 09/02 demonstrated pH of 7.47, HCO3 of 23, CO2 32 -DuoNeb every 4 hours -Chest CT suggestive of pneumonia -Repeat chest x-ray on 09/05 showed worsening aeration -Continue ceftriaxone and azithromycin (5) Shock liver Code(s): K72.00 - Acute and subacute hepatic failure without coma Status: Acute Plan: Liver enzymes trending down. Continue to monitor. s/p Vit. K x2 (6) Bilateral pneumonia Code(s): J18.9 - Pneumonia, unspecified organism Status: Acute Plan: CT of the chest demonstrated bilateral pneumonia particularly in the right upper lobe. Patient began on broad-spectrum antibiotics. Sputum Gram stain showed multiple white blood cells but no organisms. Patient status post 1 dose of vancomycin. -Strep pneumoniae antigen negative -Legionella antigen negative -Continue oxygenation via nasal cannula -DuoNeb every 4 hours scheduled and as needed -Continue azithromycin (7) Renal failure, acute on chronic Code(s): N17.9 - Acute kidney failure, unspecified; N18.9 - Chronic kidney disease, unspecified Status: Acute Plan: Nephrology on board. Likely due to ATN due to hypoperfusion, possible sepsis. Patient pulled out 18-gauge Escamilla catheter overnight and likely caused urethral trauma. Patient had [employer] colored urine in Escamilla bag this morning. Discontinued Bicarb drip -Continue Bumex 1mg IV q12h -Continue acetazolamide (8) Atrial fibrillation with rapid ventricular response Code(s): I48.91 - Unspecified atrial fibrillation Status: Acute Plan: Cardiology following s/p Cardioversion, patient now in atrial fibrillation again. INR 1.9. Consider restarting anticoagulation. Continue amiodarone (9) Cardiomyopathy Code(s): I42.9 - Cardiomyopathy, unspecified Status: Chronic Plan: Echo 2D echo on 09/03 with LVEF 20%, severe mitral regurgitation, aortic regurgitation, question of vegetation on aortic valve leaflet. * Please see plan above for cardiogenic shock (10) V-tach Code(s): I47.2 - Ventricular tachycardia Status: Chronic Plan: s/p ICD changed on 07/21/18. Patient had 7 beat run of V. tach on the morning of 09/04. Patient currently in atrial fibrillation (11) Hyperlipidemia Code(s): E78.5 - Hyperlipidemia, unspecified Status: Acute Plan: Hold fenofibrate given acute LFT elevation (12) Hypothyroidism Code(s): E03.9 - Hypothyroidism, unspecified Status: Chronic Plan: TSH within normal limits, free T4 just above the upper limit of normal. -Continue levothyroxine 75mcg daily <Kayley Cevallos - 09/07/18 11:52> - Assessment and Plan Electrolytes: Repleted Potassium 50 mEq Disposition: Medicine team sat in with hospice care, nurse Anais as well as and daughter. Family interested in hospice care today in [place]. Also voiced wanting patient changed from full code to DNR. Discussed with Dr. Le <Kayley Cevallos - 09/07/18 12:15> - Attending Attestation The exam, history, and the medical decision-making described in the above note were completed with the assistance of the resident physician. I reviewed and agree with the findings presented. I attest that I had a [id number] encounter with the patient on the same day, and personally performed and documented my assessment and findings in the medical record. Family meeting took place with hospice and primary care team. Patient is being discharged to hospice care today. <Tiago Le - 09/07/18 17:01> <Kayley Cevallos - Last Filed: 09/07/18 11:52> (7) Renal failure, acute on chronic Qualifiers: Acute renal failure type: unspecified Chronic kidney disease stage: unspecified stage Qualified Code(s): N17.9 - Acute kidney failure, unspecified ; N18.9 - Chronic kidney disease, unspecified <Tiago Le - Last Filed: 09/07/18 17:01> (7) Renal failure, acute on chronic Qualifiers: Acute renal failure type: unspecified Chronic kidney disease stage: unspecified stage Qualified Code(s): N17.9 - Acute kidney failure, unspecified ; N18.9 - Chronic kidney disease, unspecified <Kayley Cevallos - Last Filed: 09/07/18 11:52> (7) Renal failure, acute on chronic Qualifiers: Acute renal failure type: unspecified Chronic kidney disease stage: unspecified stage Qualified Code(s): N17.9 - Acute kidney failure, unspecified ; N18.9 - Chronic kidney disease, unspecified <Tiago Le - Last Filed: 09/07/18 17:01> (7) Renal failure, acute on chronic Qualifiers: Acute renal failure type: unspecified Chronic kidney disease stage: unspecified stage Qualified Code(s): N17.9 - Acute kidney failure, unspecified ; N18.9 - Chronic kidney disease, unspecified
--- NOTE | 2018-09-07 11:24 | P.PNNP ---
Subjective Interval history: Patient was seen resting in bed, no distress. Per the RN the is meeting with palliative care today. <Ml Saini - Last Filed: 09/07/18 11:25> Physical Exam Vital signs: Vital Signs 09/06/18 12:00 09/06/18 13:00 09/06/18 14:00 Temperature Pulse Rate 119 H 122 H 121 H Respiratory Rate 17 25 H 27 H Blood Pressure 108/60 112/65 122/71 Pulse Oximetry 98 98 92 L 09/06/18 15:00 09/06/18 16:00 09/06/18 17:00 Temperature Pulse Rate 129 H 118 H 126 H Respiratory Rate 23 34 H 29 H Blood Pressure 116/72 97/62 L 89/66 L Pulse Oximetry 94 L 97 95 09/06/18 18:00 09/06/18 18:01 09/06/18 19:00 Temperature Pulse Rate 126 H 124 H 122 H Respiratory Rate 24 21 22 Blood Pressure 114/63 93/66 L Pulse Oximetry 95 96 97 09/06/18 19:45 09/06/18 20:00 09/06/18 20:15 Temperature 97.8 F Pulse Rate 123 H 125 H Respiratory Rate 15 29 H Blood Pressure 99/64 L 104/69 Pulse Oximetry 96 96 94 L 09/06/18 20:30 09/06/18 20:46 09/06/18 21:00 Temperature Pulse Rate 119 H 127 H 118 H Respiratory Rate 28 H 24 13 Blood Pressure 93/55 L 110/59 L 95/53 L Pulse Oximetry 95 98 96 09/06/18 21:15 09/06/18 21:30 09/06/18 21:45 Temperature Pulse Rate 126 H 125 H 123 H Respiratory Rate 15 25 H 24 Blood Pressure 94/67 L 106/64 91/61 L Pulse Oximetry 97 97 95 09/06/18 22:00 09/06/18 22:15 09/06/18 22:30 Temperature Pulse Rate 123 H 120 H 123 H Respiratory Rate 25 H 20 22 Blood Pressure 112/67 112/55 L 110/59 L Pulse Oximetry 96 97 95 09/06/18 22:45 09/06/18 23:00 09/06/18 23:15 Temperature Pulse Rate 125 H 124 H 128 H Respiratory Rate 22 23 18 Blood Pressure 98/59 L 105/51 L 101/58 L Pulse Oximetry 96 94 L 95 09/06/18 23:30 09/06/18 23:46 09/07/18 00:00 Temperature 98.6 F Pulse Rate 130 H 123 H 122 H Respiratory Rate 20 21 24 Blood Pressure 105/69 111/94 H Pulse Oximetry 91 L 95 96 09/07/18 00:01 09/07/18 00:15 09/07/18 00:30 Temperature Pulse Rate 125 H 121 H 114 H Respiratory Rate 29 H 24 28 H Blood Pressure 114/66 107/45 L 94/54 L Pulse Oximetry 95 96 93 L 09/07/18 00:45 09/07/18 01:00 09/07/18 01:30 Temperature Pulse Rate 111 H 115 H 111 H Respiratory Rate 24 25 H 25 H Blood Pressure 100/73 96/75 L 104/73 Pulse Oximetry 95 96 94 L 09/07/18 01:45 09/07/18 02:00 09/07/18 02:15 Temperature Pulse Rate 115 H 115 H 119 H Respiratory Rate 27 H 24 24 Blood Pressure 116/64 134/57 L 124/62 Pulse Oximetry 97 09/07/18 02:30 09/07/18 02:45 09/07/18 03:00 Temperature Pulse Rate 127 H 118 H 128 H Respiratory Rate 24 23 25 H Blood Pressure 112/66 106/60 124/72 Pulse Oximetry 93 L 92 L 91 L 09/07/18 03:15 09/07/18 03:30 09/07/18 03:45 Temperature Pulse Rate 122 H 123 H 119 H Respiratory Rate 25 H 24 24 Blood Pressure 111/66 125/62 110/71 Pulse Oximetry 92 L 93 L 93 L 09/07/18 04:00 09/07/18 04:15 09/07/18 04:30 Temperature 97.8 F Pulse Rate 123 H 125 H 120 H Respiratory Rate 22 21 24 Blood Pressure 115/71 101/74 118/79 Pulse Oximetry 93 L 93 L 93 L 09/07/18 04:45 09/07/18 05:00 09/07/18 05:16 Temperature Pulse Rate 121 H 116 H 120 H Respiratory Rate 18 22 30 H Blood Pressure 99/72 L 98/76 L 112/59 L Pulse Oximetry 93 L 94 L 93 L 09/07/18 05:30 11/05/18 05:45 09/07/18 06:00 Temperature Pulse Rate 121 H 125 H 113 H Respiratory Rate 25 H 26 H 27 H Blood Pressure 104/56 L 108/72 Pulse Oximetry 91 L 92 L 92 L 09/07/18 06:01 09/07/18 06:15 09/07/18 06:30 Temperature Pulse Rate 127 H 116 H 127 H Respiratory Rate 26 H 25 H 23 Blood Pressure 109/86 120/72 121/63 Pulse Oximetry 91 L 92 L 92 L 09/07/18 06:45 09/07/18 07:00 09/07/18 07:16 Temperature Pulse Rate 125 H 115 H 121 H Respiratory Rate 26 H 25 H 28 H Blood Pressure 112/64 116/64 116/66 Pulse Oximetry 93 L 94 L 92 L 09/07/18 07:30 09/07/18 07:45 09/07/18 08:00 Temperature 98.1 F Pulse Rate 117 H 121 H 135 H Respiratory Rate 24 23 25 H Blood Pressure 128/58 L 116/70 101/59 L Pulse Oximetry 91 L 94 L 92 L 09/07/18 08:15 09/07/18 08:30 09/07/18 08:45 Temperature Pulse Rate 125 H 133 H 122 H Respiratory Rate 27 H 25 H 27 H Blood Pressure 109/69 106/67 105/61 Pulse Oximetry 92 L 92 L 92 L 09/07/18 09:00 09/07/18 09:01 09/07/18 09:15 Temperature Pulse Rate 128 H 131 H 126 H Respiratory Rate 26 H 18 31 H Blood Pressure 104/51 L 102/67 Pulse Oximetry 90 L 91 L 93 L 09/07/18 09:30 09/07/18 09:45 09/07/18 10:00 Temperature Pulse Rate 134 H 130 H 136 H Respiratory Rate 26 H 24 24 Blood Pressure 118/66 90/65 L 93/66 L Pulse Oximetry 97 93 L 93 L 09/07/18 10:15 Temperature Pulse Rate 135 H Respiratory Rate 25 H Blood Pressure 100/72 Pulse Oximetry 93 L Intake & Output 09/06/18 09/07/18 09/07/18 18:59 06:59 18:59 Intake Total 466 / 466 1482 / 1482 Output Total 1700 / 1700 800 / 800 Balance -1234 / -1234 682 / 682 Weight 74.5 kg Intake: IV 100 / 100 600 / 600 Cordarone Inj 450 MG In D5W Inj 250 / 250 241 ML @ 1 MG/MIN 33.33 mls/hr IV.CONT TITRATE PRN Rx#: [id number] Azithromycin Inj 500 MG In NS 250 / 250 Inj 250 ML @ 250 mls/hr IV.SIG Q24H ANNITA Rx#:[id number] Rocephin Inj 2,000 MG In NS Inj 100 / 100 100 / 100 100 ML @ 200 mls/hr IV.SIG Q24H ANNITA Rx#:[id number] Tube Feeding 66 / 66 282 / 282 Water Bolus Amount 300 / 300 600 / 600 Output: Urine Amount (Catheter) 1700 / 1700 800 / 800 Indwelling Urethral Catheter 1700 / 1700 800 / 800 Other: Date of Last Bowel Movement 08/29/18 08/29/18 # Bowel Movements 0 # Incontinent Bowel Movements 0 - Constitutional no acute distress - Routine HEENT Exam Eye: Present: EOMI ENT: Present: mucous membranes moist - Routine Neck Exam Present: trachea midline - Routine Respiratory Exam Present: rhonchi. Absent: accessory muscle use - Routine Cardiovascular Exam Present: irregularly irregular - Routine Abdominal Exam Present: distended. Absent: soft, tenderness - Routine Extremities Exam Present: edema. Absent: cyanosis Comments: Upper extremity edema bilaterally. - Routine Neurological Exam Absent: alert, oriented X3 - Detailed Neurological Exam: Coma Scale Eye Opening: To sound - Urinary Catheter Management Indwelling Urethral Catheter Cath placed during this visit: yes, but has since been removed by the nurse Reason for continuing: Chronic Urinary Retention Insertion date: 09/04/18 Insertion time: 15:40 Removal date: 09/04/18 Removal time: 15:40 <Ml Saini - Last Filed: 09/07/18 11:25> Vital signs: Vital Signs 09/07/18 10:00 09/07/18 10:15 Pulse Rate 135 H 135 H Respiratory Rate 24 25 H Blood Pressure 93/66 L 100/72 Pulse Oximetry 93 L 93 L Intake & Output 09/07/18 09/08/18 09/08/18 18:59 06:59 18:59 Other: Date of Last Bowel Movement 08/29/18 - Urinary Catheter Management Indwelling Urethral Catheter Cath placed during this visit: no <Pete Álvarez - Last Filed: 09/08/18 09:52> Assessment and Plan - Assessment (1) Acute kidney injury Code(s): N17.9 - Acute kidney failure, unspecified Status: Deleted Plan: Likely due to ATN due to hypoperfusion, possible sepsis. Per the RN the is meeting with palliative care this morning. Patient received Diamox 500 mg IV every 8 hours Bumex 1 mg every 6 hourly There is no immediate need to initiate dialysis. His urine output has improved. (2) Cardiomyopathy Code(s): I42.9 - Cardiomyopathy, unspecified Status: Chronic Plan: Acute on chronic systolic heart failure. Cardiology following. (3) Atrial fibrillation with rapid ventricular response Code(s): I48.91 - Unspecified atrial fibrillation Status: Acute Plan: s/p cardioversion. On Amiodarone. (4) Transaminitis Code(s): R74.0 - Nonspecific elevation of levels of transaminase and lactic acid dehydrogenase [LDH] Status: Deleted Plan: Due to ischemic hepatitis. Improving. <Ml Saini - Last Filed: 09/07/18 11:25> - Assessment (1) Acute kidney injury Code(s): N17.9 - Acute kidney failure, unspecified Status: Deleted (2) Cardiomyopathy Code(s): I42.9 - Cardiomyopathy, unspecified Status: Chronic (3) Atrial fibrillation with rapid ventricular response Code(s): I48.91 - Unspecified atrial fibrillation Status: Acute (4) Transaminitis Code(s): R74.0 - Nonspecific elevation of levels of transaminase and lactic acid dehydrogenase [LDH] Status: Deleted - Attending Attestation patient is doing poorly, hospice has been consulted. <Pete Álvarez - Last Filed: 09/08/18 09:52>
[2018-09-07] MEDS: Morphine Inj 4 MG/ML Vial IV.PUSH PRN (13:39)
== END 2018-09-07 13:45 | disposition hospice, inpatient (51) ==
LOC: NEPC 13:12 → NEDA 16:57 → HCIS 20:01 → HIMC 08-31 20:56
PROVIDERS: ADMIT Family Medicine; ATTEND Family Medicine